=== PATIENT | male | born 1940 | race Caucasian/White ===

== ENCOUNTER 2016-12-22 07:00 | Day surgery (SDC) | payer MEDICARE, OTHER ==
[~2016-12-22] VITALS: Ht 185.4 cm; Wt 75.3 kg
[~2016-12-22 07:00] MED LIST: ADULT LOW DOSE81 MG PO; AMLODIPINE BESYL5 MG PO; COREG25 MG PO; HUMALOG100 UNITS/ SQ; HYDROCODON-ACE1 EA10 PO; LANTUS100 UNITS/ SUB-Q; LISINOPRIL20 MG PO; PERCOCET 7.5-31 EACH PO; SPIRONOLACTONE25 MG PO; TRAZODONE HCL50 MG PO
--- NOTE | 2016-12-22 07:29 | NUR ---
BLOOD SUGAR CHECK DONE WITH IV START. NOTED TO BE 64. PT STATES IT WAS 70 AT HOME THIS AM AND DRANK APPROX 4 OZ OF ORANGE JUICE BEFORE COMING IN. SPOKE WITH DIRECTOR OF AGRICULTURE AND ORDERS RECIEVED.
--- NOTE | 2016-12-22 07:35 | NUR ---
1/2 AMP D50 GIVEN IV.
--- NOTE | 2016-12-22 07:44 | NUR ---
PT UP TO THE BATHROOM WITH WILLIAN ASST. TOLERATED WELL.
--- NOTE | 2016-12-22 08:30 | NUR ---
ACCU CHECK DONE AT 1 HOUR AFTER 1\2 AMP D50. BLOOD SUGAR NOTED TO BE 89. WILL NOTIFY EMERALD INGRAM. PT RESTING IN BED WITH NO REQUESTS
--- NOTE | 2016-12-22 10:31 | NUR ---
EMERALD INGRAM AND DR CHEN IN TO TALK WITH PT AND .
--- NOTE | 2016-12-22 11:05 | NUR ---
ACCU CHECK DONE. NOTED TO BE 77. PT RESTING IN BED. EMERALD NOTIFIED AND ORDER RECIEVED TO GIVE 1/2 AMP D 50.
--- NOTE | 2016-12-22 13:24 | NUR ---
[facility]22[facility]16 [facility] [place]
[2016-12-22] MEDS ORDERED: OXYCODON-ACETA1 EAC2 PO (13:40)
[2016-12-22] MEDS ORDERED: IBUPROFEN600 MG PO (13:40)
--- NOTE | 2016-12-22 13:56 | NUR ---
PT ALERT, ORIENTED AND SUPPORTED BY HIS FELA. HE HAS HAD THIS SURGERY BEFORE, YARA WEEKS WORKING HARD TO GET HIM READY FOR SURGERY. PT REQUESTED PRAYER, WILL FOLLOW NEEDED
--- NOTE | 2016-12-22 14:42 | NUR ---
PT ABLE TO MOVE LEGS IN THE BED, LIFT LEGS OFF THE BED AND STARTING TO WIGGLE TOES. PT STATES I CAN FEEL SOME "PAIN IN THE RIGHT GROIN" C/O BACK PAIN MORE THAN GROIN PAIN. REPOSITIONED IN BED AND PO PAIN MEDICATION GIVEN. LUNCH AT BEDSIDE. KITCHENHAND IN TO TALK WITH PT.
--- NOTE | 2016-12-22 15:09 | NUR ---
PT RESTING IN BED WITH EYES CLOSED. RESP EVEN AND UNLABORED. AWAKENS TO NAME EASILY. STATES "MY PAIN IS BETTER" SCHOFIELD CATH IN PLACE WITH YELLOW URINE. PT ABLE TO WIGGLE TOES BUT REPORTS THEY STILL FEEL FUNNY.
--- NOTE | 2016-12-22 16:28 | NUR ---
PT UP AT SIDE OF THE BED WITH 2 PERSON ASST. TOLERATED WELL AND ABLE TO AMBULATE AT SIDE OF THE BED. SCHOFIELD CATH REMOVED. TIP INTACT AND 6ML REMOVED FROM BALLOON. 450 ML CLEAR YELLOW URINE EMPTIED FROM SCHOFIELD.
--- NOTE | 2016-12-22 17:19 | NUR ---
PT UP TO THE BATHROOM. GAIT STEADY. UNABLE TO VOID. BACK TO ROOM.
--- NOTE | 2016-12-22 17:55 | NUR ---
PT UNABLE TO VOID SO BACK TO ROOM. BLADDER SCANNED AND [address] CHEN NOTIFIED. PT TO GO TO MED SURG TILL ABLE TO VOID. PT REPORTS JAH AREA STILL NUMB. DR CHEN NOTIFIED OF LARGE AMT OF SWELLING IN RIGHT GROIN. NO BRUISING NOTED BUT FIRM TO THE TOUCH. DR CHEN WILL CHECK ON PT ON MED SURG FLOOR.
--- NOTE | 2016-12-22 18:16 | NUR ---
181 PT TRANSFERED TO [facility] VIA . REPORT GIVEN TO ARACELI LIVINGSTON.
--- NOTE | 2016-12-22 18:25 | NUR ---
RECIEVED BEDSIDE REPORT FROM YARA WEEKS. PT ARRIVED BY WHEELCHAIR AND TRANSFERED TO BED. PT HAS SURGICAL SITE COVERED WITH MEPLEX AND OPSITE. DRESSING IN C/D/I. WHEN LYING FLAT, PT HAS A LARGE SWELLING JUST ABOVE THE PUBIC BONE, TO JUST ABOVE THE DRESSING. AREA IS FIRM TO TOUCH. NO DISCOLORATION NOTED. MD AWARE PER DAY SURGERY RN. MD WILL ROUND TONIGHT. WHEN SITTING, SWELLING IS LESS NOTICEABLE. PT HAS ATTEMPTED TO VOID x2. CONSUMED 3 TUMBLERS OF WATER. BLADDER SCAN IN DAY SURGERY SHOWED 234ML. PT STATES HIS BOTTOM AND GROIN ARE STILL NUMB. HAS NO URGE TO VOID. SENSATION AND CMS INTACT TO FEET. SPOUSE AT BEDSIDE.
--- NOTE | 2016-12-22 19:15 | NUR ---
PT UP IN BATHROOM ATTEMPTING TO VOID, PT HAVING NAUSEA VOMITING IN SINK OF BATHROOM, PT VOIDED 200ML URINE OUT. PT ADMISNTERED ZOFRAN, PT NOW SITTING ON BATHROOM TOILET TO ATTEMPT TO VOID MORE. PT NO LONGER VOMITING. AT NURSES STATION. O.R. CREW IS IN ROUTE TO TAKE PT BACK TO SURGERY TO EXPLORE INCISION, DUE TO SWELLING AT SURGERY SITE. REPORT TO CONY LIVINGSTON SUPERVISOR FEED MILL
--- NOTE | 2016-12-22 20:44 | NUR ---
12/22/162043 Riana Saldaña 2037 - PT ARRIVED TO PACU. MAINTAINING OWN AIRWAY. O2 STATS ABOVE 97%. PT REPORTING 3/10 PAIN THAT IS TOLERABLE FOR HIM. PT RECEIVED ONLY VERSED AND FENTANYL FOR SEDATION WITH ANESTHESIA PRESENT. PT DENIES NAUSEA
--- NOTE | 2016-12-22 21:35 | NUR ---
PT ARRIVED TO THE FLOOR VIA STRETCHER. IN ROOM. RECIEVED REPORT FROM COOLER ROOM WORKER, PT HAD BEEN RATING PAIN AT 3/10 IN PACU AND HAS REFUSED PAIN MEDICATION FOR IT. PT REPORTS PAIN IS INCREASING, WILL GET PAIN MEDS FOR PT. PT ALERT AND ORIENTED, PLEASENT DEMEANOR. ORIENTED TO ROOM AND CALL LIGHT. VITALS TAKEN. NO FURTHER NEEDS AT THIS TIME.
--- NOTE | 2016-12-22 22:48 | NUR ---
PT UP X2, STOOD AT BEDSIDE USING URINAL. PT VOIDING WELL. PT PAIN AT 6/10 AFTER THE LAST DOSE OF DILAUDID, GAVE ANOTHER DOSE OF DILAUDID PER PT REQUEST. PT TAKING IN SIPS OF WATER AT THE MOMENT, REFUSES PO INTAKE AT THIS TIME. PT ALSO DECIDED TO REFUSE INSULIN TONIGHT BECAUSE HE IS "NOT GOING TO EAT UNTIL TOMORROW." WILL MONITOR BS CLOSELY TONIGHT. MELANI DRAINING SANGENOUS FLUID, 30MLS OUT AT THIS TIME, MELANI TUBING STRIPPED. BROUGHT IN PT'S CPAP FROM HOME, RT SET IT UP FOR PT. PT DENIES NAUSEA. DRESSING TO RIGHT ABD IS CLEAN DRY AND INTACT, NO SHADOWING. PT ALERT AND ORIENTED X4, PLEASENT DEMEANOR. UNDERSTANDS TO USE CALL LIGHT WHEN NEEDING TO GET OUT OF BED, OR NEEDS ANY ASSISTENCE. FRESH ICE WATER AT BEDSIDE. CALL LIGHT IN REACH.
--- NOTE | 2016-12-22 23:55 | NUR ---
PT APPEARS TO BE SLEEPING. CPAP IN PLACED, RR WNL AND UNLABORED. LIGHTS AND TV OFF IN ROOM.
--- NOTE | 2016-12-23 01:59 | NUR ---
PT WOKE AND USED CALL LIGHT TO GET ASSISTANCE TO THE RESTROOM. PT AMBULATING WELL. STEADY ON FEET. VOIDING WELL. STRIPPED TUBING TO MELANI, 20MLS OF SEROUS FLUID OUT. PT COMPLAINED OF 7/10 PAIN IN ABD, GAVE DILAUDID FOR PAIN. ALSO RECHECKED BLOOD SUGAR, BS 261, PT REQUESTED TO HAVE HIS LAST NIGHTS DOSE OF NOVOLOG AT THIS TIME, PT STATES "I KNOW MY BODY PRETTY GOOD, MORENO BEEN DOING THIS FOR 50 SOME YEARS." GAVE 4 UNITS OF NOVOLOG, WILL CONTINUE TO CHECK BS THROUGHOUT THE NIGHT. PT ALERT AND ORIENTED, USES CALL LIGHT APPROPRIATLY. CPAP NOW IN PLACE, PT APPEARS TO BE SLEEPING CURRENTLY.
--- NOTE | 2016-12-23 03:35 | NUR ---
PT APPEARS TO BE SLEEPING, CPAP IN PLACE. RR WNL AND UNLABORED.
--- NOTE | 2016-12-23 04:10 | NUR ---
PT UP TO BATHROOM, AMBULATING VERY WELL, STANDBY ASSIST ONLY, VERY STEADY ON HIS FEET. PT BACK IN BED. RATES PAIN AT 6/10, STATES "ITS GETTING BETTER," AND "IM STARTING TO FEEL ALOT BETTER." GAVE PT DILAUDID FOR PAIN. BS 207 AT THIS TIME, PT OKAY WITH STARTING NORMAL DOSAGE OF INSULIN IN THE MORNING. NO FURTHER NEEDS AT THIS TIME. CALL LIGHT IN REACH.
--- NOTE | 2016-12-23 06:10 | NUR ---
PT BACK FROM SURGERY BEGINNING OF SHIFT. PAIN WELL CONTROLLED WITH DILAUDID IV. PT HAS REFUSED PO INTAKE, OTHER THAN SIPS OF WATER WITH PO MEDICATIONS. BS CHECKS AND SLIDING SCALE INSULIN. DRESSING TO RLQ IS INTACT. MELANI DRAIN STRIPPED SEVERAL TIMES OVERNIGHT, DRAINING MODERATE AMOUNTS OF SANGENOUS DRAINAGE. NO COMPLAINTS OF NAUSEA. PT ALERT AND ORIENTED X4. PLEASENT DEMEANOR. USES CALL LIGHT APPROPRIATLY.
--- NOTE | 2016-12-23 07:25 | NUR ---
REPORT RECEIVED FROM RESERVOIR CARETAKER RN USING 5 P'S. PT UP TO BR. STEADY ON FEET. RATES PAIN 6/10. GIVEN 0.5 MG DILAUDID PER PT REQUEST. AT BEDSIDE. CALL LIGHT IN REACH. PT DENIES ADDITIONAL NEEDS.
--- NOTE | 2016-12-23 08:30 | NUR ---
ANSWERED QUESTIONS REGARDING INSULIN AND HOME MEDICATIONS. DISCUSSED PAIN CONTROL. PT GIVEN PERCOCET PER HOME REGIMEN. DILAUDID INEFFECTIVE AT THIS TIME. PT AND DENY ADDITIONAL QUESIONS OR CONCERNS. PT ENCOUARGED TO USE IS, COUGH/DEEP BREATHE. CALL LIGHT IN REACH. AT BEDSIDE.
--- NOTE | 2016-12-23 12:21 | NUR ---
PT DC'D HOME AFTER DC INSTRUCTIONS BY PHARMACY AND RN. DEMONSTRATED APPROPRIATE DRAIN CARE.
--- NOTE | 2016-12-23 14:37 | NUR ---
PT ALERT AND ORIENTED-SEATED IN CHAIR. HIS SIFE BY HIS SIDE. HE WAS THANKFUL HE WAS ADMITTED, AND HAD THE SECOND PROCEDURE. THEY BOTH SEEMED PLEASED WITH THE OUTCOME, BUT ARE READY TO GO HOME. PT REQUESTED PRAYER, WILL FOLLOW NEEDED
== END 2016-12-23 12:20 | disposition home or self-care (01) ==
LOC: DS 07:00 → MS 18:06 → DS 12-23 12:20
PROVIDERS: Surgery
PROC: 0WCG0ZZ Extirpation of Matter from Peritoneal Cavity, Open Approach (ICD-10-PCS; 2016-12-22)
PROC: 0YU50JZ Supplement Right Inguinal Region with Synthetic Substitute, Open Approach (ICD-10-PCS; principal; 2016-12-22 08:45)
DX: K40.90 Unilateral inguinal hernia, without obstruction or gangrene, not specified as recurrent (principal); K91.871 Postprocedural hematoma of a digestive system organ or structure following other procedure; E10.9 Type 1 diabetes mellitus without complications; Z79.899 Other long term (current) drug therapy; Z79.891 Long term (current) use of opiate analgesic; Z82.49 Family history of ischemic heart disease and other diseases of the circulatory system
CPT/HCPCS: 00830; 36415; 85025; 85610; 85730; 88300; C1781; J0690; J1170; J1644; J2250; J2405; J2704; J3010; J7120

== ENCOUNTER 2018-09-22 09:58 | Emergency (ER) | payer MEDICARE, OTHER ==
[~2018-09-22] VITALS: Ht 182.9 cm; Wt 86.0 kg
--- OUTSIDE RECORDS SUMMARY | ~2018-09-22 | XMS | Encounter Summary ---
Demographics + + + | Address | [address] | | | [place] [address] | + + + | Home Phone | | + + + | Preferred Language | Unknown | + + + | Marital Status | | + + + | Congregational Affiliation | Unknown | + + + | Race | Unknown | + + + | Ethnic Group | Unknown | + + + Author + + + | Author | [facility] | + + + | Organization | [facility] | + + + | Address | Unknown | + + + | Phone | Unavailable | + + + Support + + + + + | Name | Relationship | Address | Phone | + + + + + | Katherine Daniel | ECON | [address] | | | | | [place] | | | | | [address] | | + + + + + Care Team Providers + +------+ + | Care Powdered Sugar Supervisor Name | Role | Phone | + +------+ + | Tracie Cm MD | PCP | | + +------+ + Reason for Visit + + + | Reason | Comments | + + + | Medication Refill | | + + + Encounter Details +--------+--------+ + + + | Date | Type | Department | Care Team | Description | +--------+--------+ + + + | 09/08/ | Refill | [facility] | [facility] | Medication Refill | | 2019 | | Cardiology [facility] | | | | | [address] | | | | | | [place] | | | | | | [address] | | | | | | [phone] | | | +--------+--------+ + + + Social History + +-------+ +--------+------+ | Tobacco Use | Types | Packs/Day | Years | Date | | | | | Used | | + +-------+ +--------+------+ | Never Smoker | | | | | + +-------+ +--------+------+ + +---+---+---+ | Smokeless Tobacco: | | | | | Never Used | | | | + +---+---+---+ + + +---------+ + | Alcohol Use | Drinks/We | oz/Week | Comments | | | ek | | | + + +---------+ + | Yes | | | rarely | + + +---------+ + + + + | Sex Assigned at | Date Recorded | | | | + + + | Not on file | | + + + as of this encounter Plan of Treatment +--------+---------+ + + + | Date | Type | Specialty | Care Team | Description | +--------+---------+ + + + | 09/28/ | Office | Cardiology | Yasmin Bates, | | | 2018 | Visit | | MD Aamir Rasmussen | | | | | | Dr [place], | | | | | | [place] [address] | | | | | | [phone] | | | | | | | | +--------+---------+ + + + as of this encounter Visit Diagnoses Not on filein this encounter"
--- OUTSIDE RECORDS SUMMARY | ~2018-09-22 | XMS | Encounter Summary ---
Demographics + + + | Address | [address] | | | [place] [address] | + + + | Home Phone | | + + + | Preferred Language | Unknown | + + + | Marital Status | | + + + | Mu-Ism Affiliation | Unknown | + + + | Race | Unknown | + + + | Ethnic Group | Unknown | + + + Author + + + | Author | [facility] | + + + | Organization | [facility] | + + + | Address | Unknown | + + + | Phone | Unavailable | + + + Support + + + + + | Name | Relationship | Address | Phone | + + + + + | Katherine Daniel | ECON | [address] | | | | | [place] | | | | | [address] | | + + + + + Care Team Providers + +------+ + | Care Automotive Artist Name | Role | Phone | + +------+ + | Tracie Cm MD | PCP | | + +------+ + Encounter Details +--------+ + + + + | Date | Type | Department | Care Team | Description | +--------+ + + + + | 06/29/ | Telephone | [facility] | [facility] | | | 2019 | | [facility] | | | | | [address] | | | | | | [facility] [address] | | | | | | [place], [place] [address] | | | | | | [phone] | | | +--------+ + + + [...] [place], | | | | | | [place] [address] | | | | | | [phone] | | | | | | | | +--------+---------+ + + + as of this encounter Visit Diagnoses Not on filein this encounter"
--- OUTSIDE RECORDS SUMMARY | ~2018-09-22 | XMS | Encounter Summary ---
Demographics + + + | Address | [address] | | | [place] [address] | + + + | Home Phone | | + + + | Preferred Language | Unknown | + + + | Marital Status | | + + + | Methodist Affiliation | Unknown | + + + | Race | Unknown | + + + | Ethnic Group | Unknown | + + + Author + + + | Author | [employer] | + + + | Organization | [facility] [employer] | + + + | Address | Unknown | + + + | Phone | Unavailable | + + + Support + + + + + | Name | Relationship | Address | Phone | + + + + + | Katherine Daniel | ECON | [address] | | | | | [place] | | | | | [address] | | + + + + + Care Team Providers + +------+ + | Care Wool Shearer Name | Role | Phone | + +------+ + | Tracie Cm MD | PCP | | + +------+ + Reason for Visit + + + | Reason | Comments | + + + | Establish Care | Referral from Tracie Cm | + + + Consult and Treat (Routine) +--------+--------+ + + + + | Status | Reason | Specialty | Diagnoses / | Referred By | Referred To | | | | | Procedures | Contact | Contact | +--------+--------+ + + + + | Closed | | Cardiology | Diagnoses | [place], | [place], | | | | | Presence of | Tracie Keating, | MD Yasmin | | | | | cardiac | [address] | [address] | | | | | pacemaker | [place] | Dr Small | | | | | Procedures | [place], | [place], [place] | | | | | Consult | [place] [address] | [address] Phone: | | | | | | Phone: | [phone] | | | | | | [phone] | Fax: | | | | | | Fax: | [phone] | | | | | | [phone] | | +--------+--------+ + + + + Encounter Details +--------+ + + + + | Date | Type | Department | Care Team | Description | +--------+ + + + + | 06/29/ | Initial | [facility] | Yasmin Orellana, | Cardiac pacemaker | | 2019 | consult | Cardiology Ama | [address] | (Primary Dx); | | | | [address] | Dr Scott, | Encounter to | | | | [address] | [place] [address] | establish care; | | | | [place] [address] | [phone] | Essential | | | | [phone] | | hypertension; | | | | | | Biventricular ICD | | | | | | (implantable | | | | | | cardioverter-defibri | | | | | | llator) in place; | | | | | | Chronic diastolic | | | | | | congestive heart | | | | | | failure (HCC); | | | | | | Ischemic | | | | | | cardiomyopathy | +--------+ + + + + Social [...] + + + as of this encounter Last Filed Vital Signs + + + + | Vital Sign | Reading | Time Taken | + + + + | Blood Pressure | 98/60 | 06/29/2018 9:05 AM PST | + + + + | Pulse | 60 | 06/29/2018 9:05 AM PST | + + + + | Temperature | - | - | + + + + | Respiratory Rate | - | - | + + + + | Oxygen Saturation | 100% | 06/29/2018 9:05 AM PST | + + + + | Inhaled Oxygen | - | - | | Concentration | | | + + + + | Weight | 82.5 kg (181 lb 12.8 | 06/29/2018 9:05 AM PST | | | oz) | | + + + + | Height | 182.9 cm (6') | 06/29/2018 9:05 AM PST | + + + + | Body Mass Index | 24.66 | 06/29/2018 9:05 AM PST | + + + + in this encounter Instructions Patient Instructions - Yasmin Orellana MD - 06/29/2018 9:00 AM PSTFurosemide 40 mg once daily. Stop amlodipine. Start Hydralazine 50 mg bid. ICD interrogation. in this encounter Progress Notes Yasmin Orellana MD - 06/29/2018 9:00 AM PSTFormatting of this note may be different fro m the original. Date of visit: 06/29/2018 Primary Care Physician: Tracie Cm CHIEF COMPLAINT: Chief Complaint Patient presents with Establish Care Referral from Tracie Cm HISTORY OF PRESENT ILLNESS: David is 78 y.o. here for evaluation of valvular pathology and cardiomyopathy. Complex past medical history and presentation. Patient is tired most of the day, his activity level is limited by significant back pain th at was exacerbated after a fall in January 2018. No shortness of breath, lower extremity edema is chronic, on low-dose furosemide 20 mg josé antonio y. Recently has been participating in physical rehabilitation for his back pain able to go 3 t imes a week, 45 minutes session. Sleeps 8-10 hours at night time however he takes at least 1 or 2 naps during the day it 1 h our each. Has history of severe mitral regurgitation, had 2 mitral clips deployed on August of 2016 du e to severe mitral regurgitation. Has been following up with Cardiology in [facility] for aortic valve stenosis. Had BIV ICD implantation for ischemic cardiomyopathy prior. Past medical history, SH, FH, and medications were reviewed in the chart. Medications: Outpatient Encounter Prescriptions as of 06/29/2018 Medication Sig Dispense Refill amLODIPine (NORVASC) 5 MG tablet Take 5 mg by mouth 2 (two) times daily. Blood Glucose Monitoring Suppl (BLOOD GLUCOSE MONITOR SYSTEM) w/Device device kit by Ot her route. carvedilol (COREG) 25 MG tablet Take 50 mg by mouth 2 (two) times daily with meals. furosemide (LASIX) 20 MG tablet Take 20 mg by mouth daily. gabapentin (NEURONTIN) 100 MG capsule Take 100 mg by mouth 3 (three) times daily. HYDROcodone-acetaminophen (NORCO) 10-325 MG per tablet Take 1 tablet by mouth every 6 ( six) hours as needed for Pain. ibuprofen (MOTRIN) 600 MG tablet Take 600 mg by mouth every 6 (six) hours as needed for Pain. insulin glargine (LANTUS) 100 UNIT/ML injection Inject 18 Units into the skin nightly. insulin lispro, human, (HUMALOG) 100 UNIT/ML injection Inject 7 Units into the skin 3 ( three) times daily before meals. lisinopril (ZESTRIL) 20 MG tablet Take 20 mg by mouth 2 (two) times daily. lubiprostone (AMITIZA) 24 MCG capsule Take 24 mcg by mouth 2 (two) times daily with thom ls. nitroGLYCERIN (NITROSTAT) 0.[address] 0.4 mg under the tongue every 5 (five) minutes as needed for Chest pain. potassium chloride (K-DUR) 10 MEQ tablet Take 20 mEq by mouth daily. spironolactone (ALDACTONE) 25 MG tablet Take 25 mg by mouth daily. traZODone (DESYREL) 50 MG tablet Take 50 mg by mouth nightly. venlafaxine (EFFEXOR) 75 MG tablet Take 75 mg by mouth daily. No facility-administered encounter medications on file as of 06/29/2018. Allergies Not on File REVIEW OF SYSTEMS: Constitutional: Positive for fatigue. HEENT: Negative for nosebleeds, ear discharge, nasal congestion or soar throat. Eyes: Negative for visual disturbance, redness, or secretion. Respiratory: Negative for cough, sputum production, hemoptysis, wheezing. Cardiovascular: as HPI. Gastrointestinal: Negative for nausea, vomiting, diarrhea, abdominal pain and blood in stoo l. Genitourinary: Negative for dysuria or hematuria. Musculoskeletal: significant back pain. Skin: Negative for rash. Neurological: Negative for dizziness. No numbness. No recent falls. No slurred speech. Hematological: No significant bruising. Psychiatric/Behavioral: No depression or anxiety. PHYSICAL EXAM Vital Signs: BP 98/60 (BP Location: Left upper arm, Patient Position: Sitting) | Pulse 60 | Ht 1.829 m (6') | Wt 82.5 kg (181 lb 12.8 oz) | SpO2 100% | BMI 24.66 kg/m GENERAL APPEARANCE: Alert, oriented, cooperative, no distress, appears stated age. HEENT: Extraocular movements were intact. No jaundice. Pupiles round and reactive. NECK: No JVD, lymphadenopathy. Carotid upstrokes normal. No carotid bruit heard. CARDIAC: Regular rhythm and rate. There is normal S1 and preserved S2. Systolic murmur in the left lower sternal border. CHEST: Normal bilateral symmetrical chest excursion.ackles or wheezing. No evidence of dull ness. ABDOMEN: Soft.No tenderness or guarding. No palpable organs. Active bowel sounds. EXTREMITIES: Pressure stocking however +2 lower extremity edema. NEURO: Alert and oriented times three with no focal deficit. Cranial nerves are grossly no rmal. SKIN: Warm and dry. No rash. Psych: Normal affect and mood. DATA No results found for: NA, K, CO2, BUN, CREATININE, CALCIUM, MG No results found for: WBC, HGB, HCT, MCV, PLT No results found for: CHOL, TRIG, HDL, LDL, GLUF, HGBA1C, TSH EC06/29/2018 Ordered and reviewed by myself showed atrial paced and ventricular paced rhythm with occasi onal PVCs. Right bundle block morphology consistent with biventricular [...] ICD implantation 2004, replaced 2009. Replaced 2016. Last Stress test: Last Cath: Last US carotid: 1988.3v CABG (BROWN-LAD, SVG-diag, SVG-RPDA) 2007. reop CABG (SVG-OM1 and 2, SVG-RPDA) ASSESSMENT: Patient is 78 y.o. with: 1. Chronic systolic decompensated heart failure, HFrEF OKH class III, stage C. 2. Hypertension. 3. Ischemic cardiomyopathy, with BiV ICD. 4. S/P 2 mitral clips due to severe mitral regurgitation, most recent echo shows moderate r egurgitation. 5. Moderate to severe aortic stenosis. 6. Severe pulmonary hypertension. 7. Type II diabetes mellitus. 8. History of atrial flutter previous ablation in 2004. 9. History of anemia. 10. Obstructive sleep apnea. 11. 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 Reviewed patient previous notes an echocardiogram, I reviewed the echocardiogram findings w ith the patient and his . Continue with carvedilol 25 mg bid, lisinopril 20 mg bid, spironolactone 25 mg once daily. Increase furosemide to 40 mg po q day. Stop amlodipine given patient ischemic cardiomyopathy and start hydralazine since it is med ically guided therapy for cardiomyopathy 50 mg bid, titrate up for blood pressure control. Anemia of chronic disease of unknown etiology, chemotherapy was advised however patient dec lined. We will schedule patient for ICD interrogation. We will continue monitoring weight, I reviewed salt and fluid restrictions. Discussed with the patient starting Sacubitril/Valsartan on future encounter. Further recommendations to follow. *This report has been prepared using a voice recognition system. The report was reviewed fo r accuracy, however, sound-alike word errors, addition and/or deletions may occur. If there is any question about this report please contact me. Yasmin Orellana MD, MPHin this encounter Plan of Treatment +--------+---------+ + + + | Date | Type | Specialty | Care Team | Description | +--------+---------+ + + + | 09/28/ | Office | Cardiology | Yasmin Orellana, | | | 2018 | Visit | | MD Aamir Rasmussen | | | | | | Dr [address], | | | | | | [place] [address] | | | | | | [phone] | | | | | | | | +--------+---------+ + + + + +--------+ + + | Name | Priori | Associated Diagnoses | Order Schedule | | | ty | | | + +--------+ + + | ICD Pacemaker Interrogation | Routin | Essential | Expected: | | | e | hypertension | 06/29/2018, Expires: | | | | Biventricular Icd | 06/29/2019 | | | | (Implantable | | | | | Cardioverter-Defibri | | | | | llator) In Place | | | | | Chronic diastolic | | | | | congestive heart | | | | | failure (HCC) | | | | | Ischemic | | | | | cardiomyopathy | | + +--------+ + + as of this encounter Procedures + +--------+ + + + | Procedure Name | Priori | Date/Time | Associated Diagnosis | Comments | | | ty | | | | + +--------+ + + + | EKG STANDARD 12 LEAD | Routin | 06/29/2018 | Cardiac pacemaker | Results for this | | | e | 9:21 AM | Encounter to | procedure are in the | | | | PST | establish care | results section. | | | | | Essential | | | | | | hypertension | | + +--------+ + + + in this encounter Results EKG STANDARD 12 LEAD (06/29/2018 9:21 AM) + + + + + | Component | Value | Ref Range | Performed At | + + + + + | Ventricular Rate | 67 | BPM | [facility] | + + + + + | Atrial Rate | 67 | BPM | [facility] | + + + + + | P-R Interval | 156 | ms | [facility] | + + + + + | QRS Duration | 140 | ms | [facility] | + + + + + | Q-T Interval | 466 | ms | [facility] | + + + + + | QTC Calculation | 492 | ms | [facility] | | (Bezet) | | | | + + + + + | Calculated P Nowata | 60 | degrees | [facility] | + + + + + | Calculated R Nowata | -95 | degrees | [facility] | + + + + + | Calculated T Nowata | 34 | degrees | [facility] | + + + + + | Diagnosis | AV dual-paced rhythm | | [facility] | | | with occasional | | | | | ventricular-paced | | | | | complexes and with | | | | | occasional Premature | | | | | ventricular | | | | | complexesAbnormal ECGNo | | | | | previous ECGs | | | | | availablePlease refer to | | | | | Providers office visit | | | | | note for Providers | | | | | Interpretation.Confirmed | | | | | by [facility] Read Only, | | | | | [facility] ([id number]), | | | | | editorial manager Farzad Nguyen | | | | | ([id number]) on 06/29/2018 | | | | | 9:30:41 AM | | | + + + + + + + + + + | Performing | Address | City/State/Zipcode | Phone Number | | Organization | | | | + + + + + | [facility] | [address] | [place] [address] | | + + + + + in this encounter Visit Diagnoses + + | Diagnosis | + + | Cardiac pacemaker - Primary | + + | Cardiac pacemaker in situ | + + | Encounter to establish care | + + | Reserved for inherently not codable concepts WITHOUT codable children | + + | Essential hypertension | + + | Unspecified essential hypertension | + + | Biventricular ICD (implantable cardioverter-defibrillator) in place | + + | Chronic diastolic congestive heart failure (HCC) | + + | Chronic diastolic heart failure | + + | Ischemic cardiomyopathy | + + | Other specified forms of chronic ischemic heart disease | + +"
--- OUTSIDE RECORDS SUMMARY | ~2018-09-22 | XMS | Clinical Summary ---
Demographics + + + | Address | [address] | | | [place] [address] | + + + | Home Phone | | + + + | Preferred Language | Unknown | + + + | Marital Status | | + + + | Nondenominational Affiliation | [id number] | + + + | Race | Unknown | + + + | Ethnic Group | Unknown | + + + Author + + + | Author | [facility] | | | and [place] | + + + | Organization | [facility] | | | and [place] | + + + | Address | Unknown | + + + | Phone | Unavailable | + + + Support + + + + + | Name | Relationship | Address | Phone | + + + + + | Daniel Gomez | ECON | [place] | | | | | [address] | | + + + + + | Katherine Gomez L | ECON | [address] | | | | | [place] | | | | | [address] | | + + + + + | Katherine Gomez | ECON | [address] | | | | | [place] | | | | | [address] | | + + + + + Care Team Providers + +------+ + | Care Bicycle Designer Name | Role | Phone | + +------+ + | Tracie Cm MD | PP | | + +------+ + Allergies No Known Allergies Current Medications + + +-------+---------+------+------+-------+ | Prescription | Sig. | Disp. | Refills | Star | End | Statu | | | | | | t | Date | s | | | | | | Date | | | + + +-------+---------+------+------+-------+ | amLODIPine | Take 5 mg by mouth. | | | 05/0 | | Activ | | (NORVASC) 5 mg | | | | 8/20 | | e | | tablet | | | | 18 | | | + + +-------+---------+------+------+-------+ | carvedilol (COREG) | Take 50 mg by mouth. | | | 05/0 | | Activ | | 25 mg tablet | | | | 2/20 | | e | | | | | | 18 | | | + + +-------+---------+------+------+-------+ | lisinopril | Take 20 mg by mouth. | | | 05/0 | | Activ | | (PRINIVIL, ZESTRIL) | | | | 8/20 | | e | | 20 mg tablet | | | | 18 | | | + + +-------+---------+------+------+-------+ | amLODIPine | amlodipine besylate | | | | | Activ | | (NORVASC) 5 mg | 5 mg tabs | | | | | e | | tablet (ED prepack) | | | | | | | + + +-------+---------+------+------+-------+ | spironolactone | spironolactone 25 mg | | | | | Activ | | (ALDACTONE) 25 mg | tabs | | | | | e | | tablet (ED prepack) | | | | | | | + + +-------+---------+------+------+-------+ | traZODone | trazodone hcl 50 mg | | | | | Activ | | (DESYREL) 50 mg | tabs | | | | | e | | tablet | | | | | | | + + +-------+---------+------+------+-------+ | insulin lispro | humalog 100 unit/ml | | | | | Activ | | (HUMALOG) 100 | soln | | | | | e | | units/mL injection | | | | | | | | (vial) | | | | | | | + + +-------+---------+------+------+-------+ | insulin glargine | Inject 18 Units | | | | | Activ | | (LANTUS) 100 | under the skin. | | | | | e | | units/mL injection | | | | | | | | (vial) | | | | | | | + + +-------+---------+------+------+-------+ | lubiprostone | Take 24 mcg by mouth | | | | | Activ | | (AMITIZA) 24 mcg | 2 times daily (with | | | | | e | | capsule | breakfast & | | | | | | | | dinner). | | | | | | + + +-------+---------+------+------+-------+ | venlafaxine | Take 75 mg by mouth | | | | | Activ | | (EFFEXOR) 75 MG | 3 times daily. | | | | | e | | tablet | | | | | | | + + +-------+---------+------+------+-------+ | ibuprofen | Take 600 mg by mouth | | | | | Activ | | (ADVIL,MOTRIN) 600 | every 6 hours as | | | | | e | | MG tablet | needed for Pain. | | | | | | + + +-------+---------+------+------+-------+ | | Take 1 tablet by | | | | | Activ | | HYDROcodone-acetamin | mouth every 6 hours | | | | | e | | ophen (NORCO) | as needed for Pain. | | | | | | | 7.5-325 mg per | | | | | | | | tablet | | | | | | | + + +-------+---------+------+------+-------+ | gabapentin | Take 100 mg by mouth | | | | | Activ | | (NEURONTIN) 100 mg | 3 times daily. | | | | | e | | capsule | | | | | | | + + +-------+---------+------+------+-------+ | ASPIRIN PO | Take by mouth. | | | | | Activ | | | | | | | | e | + + +-------+---------+------+------+-------+ | nitroglycerin | Place 0.4 mg under | | | | | Activ | | (NITROSTAT) 0.4 mg | the tongue every 5 | | | | | e | | SL tablet | minutes as needed | | | | | | | | for Chest pain. | | | | | | + + +-------+---------+------+------+-------+ Active Problems Not on file Family History + + +------+ + | Medical History | Relation | Name | Comments | + + +------+ + | Prostate cancer | Father | | | + + +------+ + + +------+--------+ + | Relation | Name | Status | Comments | + +------+--------+ + | Father | | | | + +------+--------+ + Social History + +-------+ +--------+------+ | [...] +---------+ + | Yes | | | rarley | + + +---------+ + + + + | Sex Assigned at | Date Recorded | | | | + + + | Not on file | | + + + Last Filed Vital Signs + + + + | Vital Sign | Reading | Time Taken | + + + + | Blood Pressure | 127/60 | 04/18/20181449 PDT | + + + + | Pulse | 72 | 04/18/20181449 PDT | + + + + | Temperature | 36.9 C (98.5 F) | 04/18/20181449 PDT | + + + + | Respiratory Rate | 16 | 04/18/20181449 PDT | + + + + | Oxygen Saturation | 97% | 04/18/20181449 PDT | + + + + | Inhaled Oxygen | - | - | | Concentration | | | + + + + | Weight | - | - | + + + + | Height | 181 cm (5' 11.26") | 04/18/20181449 PDT | + + + + | Body Mass Index | - | - | + + + + Plan of Treatment + + + + + | Health Maintenance | Due Date | Last Done | Comments | + + + + + | Vaccine: | | | | | Dtap/Tdap/Td (1 - | 0 | | | | Tdap) | | | | + + + + + | Vaccine: Zoster (1 | | | | | of 2) | 1 | | | + + + + + | Vaccine: | | | | | Pneumococcal 65+ | 6 | | | | Low/Medium Risk (1 | | | | | of 2 - PCV13) | | | | + + + + + | Vaccine: Influenza | | | | | (#1) | 8 | | | + + + + + Results Not on filefrom Last 3 Months Insurance + +--------+ +--------+ +---------+ | Payer | Benefi | Subscriber | Type | Phone | Address | | | t Plan | ID | | | | | | / | | | | | | | Group | | | | | + +--------+ +--------+ +---------+ | MEDICARE | MEDICA | [id number] | Medica | [phone] | | | RE | | re | [phone] | | | | PART A | | | | | | | AND B | | | | | + +--------+ +--------+ +---------+ | [employer] | MUTUAL | [id number] | Indemn | [phone] | | | OF | | ity | 1000 | | | | [employer] | | | | | + +--------+ +--------+ +---------+ + +--------+ +--------+ + + | Guarantor Name | Accoun | Relation to | Date | Phone | Billing Address | | | t Type | Patient | of | | | | | | | | | | + +--------+ +--------+ + + | DAVID GOMEZ | Person | Self [birth year] Home: | [address] [place] [address] | | | al/Fam | | [phone] | [phone] | [place] [address] | | | [address] | | | [phone] | | + +--------+ +--------+ + +
--- OUTSIDE RECORDS SUMMARY | ~2018-09-22 | XMS | Clinical Summary ---
Demographics + + + | Address | [address] | | | [place] [address] | + + + | Home Phone | | + + + | Preferred Language | Unknown | + + + | Marital Status | | + + + | Baptism Affiliation | Unknown | + + + | Race | Unknown | + + + | Ethnic Group | Unknown | + + + Author + + + | Author | [facility] | + + + | Organization | [facility] | + + + | Address | Unknown | + + + | Phone | Unavailable | + + + Support + + + + + | Name | Relationship | Address | Phone | + + + + + | Katherine Gomez | ECON | [address] | | | | | [place] | | | | | [address] | | + + + + + Care Team Providers + +------+ + | Care Dust Box Tender Name | Role | Phone | + +------+ + | Tracie Cm MD | PP | | + +------+ + Allergies Not on File Current Medications + + +--------+---------+------+------+-------+ | Prescription | Sig. | Disp. | Refills | Star | End | Statu | | | | | | t | Date | s | | | | | | Date | | | + + +--------+---------+------+------+-------+ | potassium chloride | Take 20 mEq by mouth | | | | | Activ | | (K-DUR) 10 MEQ | daily. | | | | | e | | tablet | | | | | | | + + +--------+---------+------+------+-------+ | carvedilol (COREG) | Take 50 mg by mouth | | | | | Activ | | 25 MG tablet | 2 (two) times daily | | | | | e | | | with meals. | | | | | | + + +--------+---------+------+------+-------+ | lisinopril | Take 20 mg by mouth | | | | | Activ | | (ZESTRIL) 20 MG | 2 (two) times daily. | | | | | e | | tablet | | | | | | | + + +--------+---------+------+------+-------+ | spironolactone | Take 25 mg by mouth | | | | | Activ | | (ALDACTONE) 25 MG | daily. | | | | | e | | tablet | | | | | | | + + +--------+---------+------+------+-------+ | traZODone | Take 50 mg by mouth | | | | | Activ | | (DESYREL) 50 MG | nightly. | | | | | e | | tablet | | | | | | | + + +--------+---------+------+------+-------+ | lubiprostone | Take 24 mcg by mouth | | | | | Activ | | (AMITIZA) 24 MCG | 2 (two) times daily | | | | | e | | capsule | with meals. | | | | | | + + +--------+---------+------+------+-------+ | venlafaxine | Take 75 mg by mouth | | | | | Activ | | (EFFEXOR) 75 MG | daily. | | | | | e | | tablet | | | | | | | + + +--------+---------+------+------+-------+ | ibuprofen (MOTRIN) | Take 600 mg by mouth | | | | | Activ | | 600 MG tablet | every 6 (six) hours | | | | | e | | | as needed for Pain. | | | | | | + + +--------+---------+------+------+-------+ | gabapentin | Take 100 mg by mouth | | | | | Activ | | (NEURONTIN) 100 MG | 3 (three) times | | | | | e | | capsule | daily. | | | | | | + + +--------+---------+------+------+-------+ | | Take 1 tablet by | | | | | Activ | | HYDROcodone-acetamin | mouth every 6 (six) | | | | | e | | ophen (NORCO) 10-325 | hours as needed for | | | | | | | MG per tablet | Pain. | | | | | | + + +--------+---------+------+------+-------+ | nitroGLYCERIN | Place 0.4 mg under | | | | | Activ | | (NITROSTAT) 0.4 MG | the tongue every 5 | | | | | e | | SL tablet | (five) minutes as | | | | | | | | needed for Chest | | | | | | | | pain. | | | | | | + + +--------+---------+------+------+-------+ | insulin lispro, | Inject 7 Units into | | | | | Activ | | human, (HUMALOG) 100 | the skin 3 (three) | | | | | e | | UNIT/ML injection | times daily before | | | | | | | | meals. | | | | | | + + +--------+---------+------+------+-------+ | insulin glargine | Inject 18 Units into | | | | | Activ | | (LANTUS) 100 UNIT/ML | the skin nightly. | | | | | e | | injection | | | | | | | + + +--------+---------+------+------+-------+ | Blood Glucose | by Other route. | | | | | Activ | | Monitoring Suppl | | | | | | e | | (BLOOD GLUCOSE | | | | | | | | MONITOR SYSTEM) | | | | | | | | w/Device device kit | | | | | | | + + +--------+---------+------+------+-------+ | furosemide (LASIX) | Take 2 tablets by | 100 | 1 | 01/0 | | Activ | | 20 MG tablet | mouth daily. | tablet | | 2/20 | | e | | | | | | 19 | | | + + +--------+---------+------+------+-------+ | hydrALAZINE | Take 1 tablet by | 60 | 2 | 03/ | 08/26 | Activ | | (APRESOLINE) 50 MG | mouth 2 (two) times | tablet | | 4/20 | 3/20 | e | | tablet | daily. | | | 19 | 20 | | + + +--------+---------+------+------+-------+ | hydrALAZINE | Take 1 tablet by | 60 | 2 | 01/0 | 03/ | Disco | | (APRESOLINE) 50 MG | mouth 2 (two) times | tablet | | 2/20 | 4/20 | ntinu | | tablet | daily. | | | 19 | 19 | ed | + + +--------+---------+------+------+-------+ Active Problems + + + | Problem | Noted Date | + + + | Atrial flutter (HCC) | 11/17/2016 | + + + + + | Overview: Overview: 10/21/2007 patient underwent typical | | atrial flutter ablation by Sander De Leon M.D. | + + + + + | S/P mitral valve repair | 09/15/2016 | + + + | Chronic diastolic congestive heart failure (HCC) | 06/26/2016 | + + + | Non-rheumatic mitral regurgitation | 06/26/2016 | + + + | Biventricular ICD (implantable cardioverter-defibrillator) in | 10/13/2013 | | place | | + + + + + | Overview: Overview: | | Medtronic Praveen II DIAMOND CLEANER-D ICD | | | | Last Assessment & Plan: | | Normal function. | + + + + + | Coronary atherosclerosis | 08/10/2011 | + + + | Diabetes mellitus, type II (HCC) | 08/10/2011 | + + + + + | Overview: Overview: | | ENRIQUEU [id number] Decision | + + + + + | Dyslipidemia | 08/10/2011 | + + + | Hypertension | 08/10/2011 | + + + | Ischemic cardiomyopathy | 08/10/2011 | + + + + + | Overview: Last Assessment & Plan: Severe MR by last echo. Was | | seeing Dr. Serra, wishes to establish care with [place] | | electro mechanical engineer. Will refer to cardiology and try to arrange his | | appointment for when he is in [place] for his generator change. | + + Encounters +--------+ + + + + | Date | Type | Specialty | Care Team | Description | +--------+ + + + + | 09/08/ | Refill | | Rayne Ibarra | Medication Refill | | 2018 | | | [facility] | | +--------+ + + + + | 06/29/ | Initial | | Yasmin Bates, | Cardiac pacemaker | | 2019 | consult | | MD | (Primary Dx); | | | | | | Encounter to | | | | | | establish care; | | | | | | Essential | [...] cardiomyopathy | +--------+ + + + + | 06/29/ | Telephone | | Rayne Ibarra | | | 2019 | | | [facility] | | +--------+ + + + + | 06/29/ | Documentati | | Rayne Ibarra | Other ([facility] | | 2019 | on Only | | [facility] | records) | +--------+ + + + + from Last 3 Months Family History + + +------+ + | Medical History | Relation | Name | Comments | + + +------+ + | Heart [...] AM PST | + + + + Plan of Treatment +--------+---------+ + + + | Date | Type | Specialty | Care Team | Description | +--------+---------+ + + + | 09/28/ | Office | | Yasmin Bates, | | | 2018 | Visit | | [address] | | | | | | Dr [place], | | | | | | [place] [address] | | | | | | [phone] | | | | | | | | +--------+---------+ + + + + + + + + | Health Maintenance | Due Date | Last Done | Comments | + + + + + | Diabetic Eye Exam | | | | | | 1 | | | + + + + + | Diabetic Foot Exam | | | | | | 1 | | | + + + + + | Hemoglobin A1c | | | | | | 1 | | | + + + + + | Microalbumin | | | | | Screening | 1 | | | + + [...] + + from Last 3 Months Results EKG STANDARD 12 LEAD (06/29/2018 9:21 [...] | ms | [facility] E[facility] | | (Haily) | | | | + + + + + | Calculated P [place] | 60 | degrees | [facility] | + + + + + | Calculated R [place] | -95 | degrees | [facility] | + + + + + | Calculated T [place] | 34 | degrees | [facility] | + + + + + | Diagnosis | AV dual-paced rhythm | | [facility] | | | with occasional | [...] | | | | | by [facility] [place] Read Only, | | | | | [facility] Valery (398), | | | | | editorial director Farzad Nguyen | | | | | (253) on 06/29/2018 | | | | | 9:30:41 AM | | | + + + + + + + + + + | Performing | Address | City/State/Zipcode | Phone Number | | Organization | | | | + + + + + | [facility] | [address] | [place] [address] | | + + + + + from Last 3 Months Insurance + +--------+ +------+-------+ + | Payer | Benefi | Subscriber | Type | Phone | Address | | | t Plan | ID | | | | | | / | | | | | | | Group | | | | | + +--------+ +------+-------+ + | MEDICARE | MEDICA | [id number] | | | [address] | | | RE | | | | [place] [address] | | | IP-OP | | | | | + +--------+ +------+-------+ + | [employer] [place] | MUTUAL | [id number] | | | | | | [place] | | | | | | | [place] | | | | | + +--------+ +------+-------+ + + +--------+ +--------+ + + | Guarantor Name | Accoun | Relation to | Date | Phone | Billing Address | | | t Type | Patient | of | | | | | | | | | | + +--------+ +--------+ + + | STEVE GOMEZ | Person | Self | [birth year] | Work: | [address] | | | al/Lance | | 1940 | [phone] | [place] [address] | | | sid | | | [address] Home: | | | | | | | | | | | | | | [phone] | | | | | | | [phone] | | + +--------+ +--------+ + +"
--- OUTSIDE RECORDS SUMMARY | ~2018-09-22 | XMS | Encounter Summary ---
Demographics + + + | Address | [address] | | | [place] [address] | + + + | Home Phone | | + + + | Preferred Language | Unknown | + + + | Marital Status | | + + + | Caodaism Affiliation | Unknown | + + + | Race | Unknown | + + + | Ethnic Group | Unknown | + + + Author + + + | Author | [facility] | + + + | Organization | [facility] | + + + | Address | Unknown | + + + | Phone | Unavailable | + + + Support + + + + + | Name | Relationship | Address | Phone | + + + + + | Katherine Daniel | ECON | [address] | | | | | [place] | | | | | [address] | | + + + + + Care Team Providers + +------+ + | Care Publications Production Supervisor Name | Role | Phone | [...] [place] | | | | | | [address] | | | | | | [phone] | | | +--------+--------+ + + + [...] | | | | | | [place] [address] | | | | | | [phone] | | | | | | | | +--------+---------+ + + + as of this encounter Visit Diagnoses Not on filein this encounter"
--- OUTSIDE RECORDS SUMMARY | ~2018-09-22 | XMS | Encounter Summary ---
Demographics + + + | Address | [address] | | | [place] [address] | + + + | Home Phone | | + + + | Preferred Language | Unknown | + + + | Marital Status | | + + + | Denominational Affiliation | Unknown | + + + | Race | Unknown | + + + | Ethnic Group | Unknown | + + + Author + + + | Author | [facility] | + + + | Organization | [facility] | + + + | Address | Unknown | + + + | Phone | Unavailable | + + + Support + + + + + | Name | Relationship | Address | Phone | + + + + + | Katherine Daniel | ECON | [address] | | | | | [place] | | | | | [address] | | + + + + + Care Team Providers + +------+ + | Care Carpet Binder Name | Role | Phone | + +------+ + | Tracie Cm MD | PCP | | + +------+ + Reason for Visit +--------+ + | Reason | Comments | +--------+ + | Other | [facility] records | +--------+ + Encounter Details +--------+ + + + + | Date | Type | Department | Care Team | Description | +--------+ + + + + | 06/29/ | Documentati | [facility] | Rayne Ibarra | Other ([facility] | | 2019 | on Only | Cardiology Ama | [facility] | records) | | | | [address] | | | | | | [address] | | | | | | [place] [address] | | | | | | [phone] | | | +--------+ + + + [...] 2019 | Visit | | MD Aamir Rasmussen | | | | | | Dr [place], | | | | | | [place] [address] | | | | | | [phone] | | | | | | | | +--------+---------+ + + + as of this encounter Visit Diagnoses Not on filein this encounter"
--- OUTSIDE RECORDS SUMMARY | ~2018-09-22 | XMS | Encounter Summary ---
Demographics + + + | Address | [address] | | | [place] [address] | + + + | Home Phone | | + + + | Preferred Language | Unknown | + + + | Marital Status | | + + + | Adventist Affiliation | Unknown | + + + | Race | Unknown | + + + | Ethnic Group | Unknown | + + + Author + + + | Author | [facility] | + + + | Organization | [facility] | + + + | Address | Unknown | + + + | Phone | Unavailable | + + + Support + + + + + | Name | Relationship | Address | Phone | + + + + + | Katherine Daniel | ECON | [address] | | | | | [place] | | | | | [address] | | + + + + + Care Team Providers + +------+ + | Care Coke Still Cleaner Name | Role | Phone | + [...] | | | Procedures | [place], | [place], [place] | | | | | Consult | [place] [address] | [address] Phone: | | | | | | Phone: | [phone] | | | | | | [phone] | Fax: | | | | | | Fax: | [phone] | | | | | | [phone] | | +--------+--------+ + + + + Encounter Details +--------+ + + + + | Date | Type | Department | Care Team | Description | +--------+ + + + + | 06/29/ | Initial | [facility] [place] | Yasmin Orellana, | Cardiac pacemaker | | 2019 | consult | Cardiology Ama | [address] | (Primary Dx); | | | | [address] | Dr [place], | Encounter to | | | | [address] | [place] [address] | establish care; | | | | [place] [address] | [phone] | Essential | | | | [phone] | | hypertension; | | | | [...] Has been following up with Cardiology in [facility] for aortic valve stenosis. Had [...] 1. Chronic systolic decompensated heart failure, HFrEF CAH class III, stage C. 2. Hypertension. 3. [...] | | | | | | [place] [address] | | | | | | [phone] | | | | | | | [...] + + + + | Calculated P [place] | 60 | degrees | [facility] | + + + + + | Calculated R [place] | -95 | degrees | [facility] | + + + + + | Calculated T [place] | 34 | degrees | [facility] | + + + + + | Diagnosis | AV dual-paced rhythm | | [facility] EKG | | | with occasional | [...] | | | | | by [facility] [place] Read Only, | | | | | [facility] Valery (502), | | | | | editorial intern Farzad Nguyen | | | | | (253) on 06/29/2018 | | | | | 9:30:41 AM | | | + + + + + + + + + + | Performing | Address | City/State/Zipcode | Phone Number | | Organization | | | | + + + + + | [facility] | [address] | [place] [address] | | + + + + + [...]
--- OUTSIDE RECORDS SUMMARY | ~2018-09-22 | XMS | Clinical Summary ---
Demographics + + + | Address | [address] | | | [place] [address] | + + + | Home Phone | | + + + | Preferred Language | Unknown | + + + | Marital Status | | + + + | Sabianist Affiliation | 1069 | + + + | Race | Unknown | + + + | Ethnic Group | Unknown | + + + Author + + + | Author | [facility] | | | and [place] | + + + | Organization | [facility] | | | and [place] | + + + | Address | Unknown | + + + | Phone | Unavailable | + + + Support + + + + + | Name | Relationship | Address | Phone | + + + + + | Daniel Gomez | ECON | [place] | | | | | [address] | | + + + + + | Katherine Gomez L | ECON | [address] | | | | | [place] | | | | | [address] | | + + + + + | Katherine Gomez | ECON | [address] | | | | | [place] | | | | | [address] | | + + + + + Care Team Providers + +------+ + | Care Aircraft Rigging And Controls Mechanic Name | Role | Phone | [...] +--------+ +---------+ | MEDICARE | MEDICA | [id number] | Medica | [phone] | | | RE | | re | [phone] | | | | PART A | | | | | | | AND B | | | | | + +--------+ +--------+ +---------+ | [employer] [place] | MUTUAL | [id number] | Indemn | [phone] | | | OF | | ity | 1000 | | | | [place] | | | | | + +--------+ [...] | Self | [birth year] Home: | [address] [place] [address] | | | al/Fam | | 1940 | [phone] | [place] [address] | | | sid | | | [phone] | | + +--------+ +--------+ + +
--- OUTSIDE RECORDS SUMMARY | ~2018-09-22 | XMS | Clinical Summary ---
Demographics + + + | Address | [address] | | | [place] [address] | + + + | Home Phone | | + + + | Preferred Language | Unknown | + + + | Marital Status | | + + + | Uatsdin Affiliation | EPI | + + + [...] Phone | + + +---------+ + | FELA GOMEZ | ECON | Unknown | | + + +---------+ + Care Team Providers + +------+ + | Care Tea Tree Farm Worker Name | Role | Phone | + +------+ + | Sander Murphy MD | PP | | + +------+ + Source Comments YASSINE is fully live on both [facility] Ambulatory and [facility] InPatient.[facility] Allergies Not on File Current Medications Not on file Active Problems Not [...] on file | | + + + Plan of Treatment + + + + + | Health Maintenance | Due Date | Last Done | Comments | + + + + + | Pneumococcal (Adult) | | | | | (1 of 2 - PCV13) | 6 | | | + + + + + | Influenza (Flu) | | | | | vaccination (#1) | 8 | | | + + + + + Results Not on filefrom Last 3 Months Insurance + +--------+ +--------+ + + | Payer | Benefi | Subscriber | Type | Phone | Address | | | t Plan | ID | | | | | | / | | | | | | | Group | | | | | + +--------+ +--------+ + + | MEDICARE | MEDICA | xxxxxxxxxx | Medica | [phone] | [address] | | | RE A & | | re | [phone] | [place] [address] | | | B | | | | | + +--------+ +--------+ + + | [employer] [place] | MUTUAL | [id number] | Indemn | [phone] | [employer] [place] | | MEDICARE SUPPL | OF | | ity | [address] [place] | | | [place] | | | | [phone] | | | MEDICA | | | | | | | RE | | | | | | | SUPPL | | | | | + +--------+ +--------+ + + + +--------+ +--------+ + + | Guarantor Name | Accoun | Relation to | Date | Phone | Billing Address | | | t Type | Patient | of | | | | | | | | | | + +--------+ +--------+ + + | DAVID GOMEZ | Person | Self [birth year] | Home: | [address] | | | al/Fam | | 1940 | [phone] | [place] [address] | | | sid | | | [phone] | | + +--------+ +--------+ + +"
--- OUTSIDE RECORDS SUMMARY | ~2018-09-22 | XMS | Encounter Summary ---
Demographics + + + | Address | [address] | | | [place] [address] | + + + | Home Phone | | + + + | Preferred Language | Unknown | + + + | Marital Status | | + + + | Synagogue Affiliation | Unknown | + + + | Race | Unknown | + + + | Ethnic Group | Unknown | + + + Author + + + | Author | [facility] | + + + | Organization | [facility] | + + + | Address | Unknown | + + + | Phone | Unavailable | + + + Support + + + + + | Name | Relationship | Address | Phone | + + + + + | Katherine Daniel | ECON | [address] | | | | | [place] | | | | | [address] | | + + + + + Care Team Providers + +------+ + | Care Supervisor Machine Workers Name | Role | Phone | + [...] | | | | | [place] [address] | | | | | | [phone] | | | +--------+ + + + [...] | | | | | | [place] [address] | | | | | | [phone] | | | | | | | | +--------+---------+ + + + as of this encounter Visit Diagnoses Not on filein this encounter"
--- OUTSIDE RECORDS SUMMARY | ~2018-09-22 | XMS | Clinical Summary ---
Demographics + + + | Address | [address] | | | [place] [address] | + + + | Home Phone | | + + + | Preferred Language | Unknown | + + + | Marital Status | | + + + | Hinduism Affiliation | EPI | + + + [...] Team Providers + +------+ + | Care Biomedical Scientist Name | Role | Phone | + +------+ + | Sander Murphy MD | PP | | + +------+ + Source Comments YASSINE is fully live on both [facility] Ambulatory and [facility] InPatient.[facility] Allergies Not on File Current Medications Not [...] | re | [address] | [place] [address] | | | B | | | | | + +--------+ +--------+ + + | [employer] [place] | MUTUAL | [id number] | Indemn | [phone] | [employer] [place] | | MEDICARE SUPPL | OF | | ity | [address] | [place] | | | [place] | | | | [phone] | | | MEDICA | | | [...] | [birth year] | Home: | [address] | | | al/Fam | | 1940 | [phone] | [place] [address] | | | sid | | | [phone] | | + +--------+ +--------+ + +"
--- OUTSIDE RECORDS SUMMARY | ~2018-09-22 | XMS | Clinical Summary ---
Demographics + + + | Address | [address] | | | [place] [address] | + + + | Home Phone | | + + + | Preferred Language | Unknown | + + + | Marital Status | | + + + | Gnosticist Affiliation | Unknown | + + + | Race | Unknown | + + + | Ethnic Group | Unknown | + + + Author + + + | Author | [facility] | + + + | Organization | [facility] | + + + | Address | Unknown | + + + | Phone | Unavailable | + + + Support + + + + + | Name | Relationship | Address | Phone | + + + + + | Katherine Gomez | ECON | [address] | | | | | [place] | | | | | [address] | | + + + + + Care Team Providers + +------+ + | Care Die Hardener Name | Role | Phone | + [...] Overview: Overview: | | Medtronic Praveen II INDUSTRIAL REHABILITATION CONSULTANT-D ICD | | | | Last Assessment & Plan: | | Normal function. | + + + + + | Coronary atherosclerosis | 08/10/2011 | + + + | Diabetes mellitus, type II (HCC) | 08/10/2011 | + + + + + | Overview: Overview: | | ENRIQUEU [id number] Decision | + + + + + | Dyslipidemia | 08/10/2011 | + + + | Hypertension | 08/10/2011 | + + + | Ischemic cardiomyopathy | 08/10/2011 | + + + + + | Overview: Last Assessment & Plan: Severe MR by last echo. Was | | seeing Dr. Serra, wishes to establish care with [place] | | fuel injection servicer. Will refer to cardiology and try to arrange his | | appointment for when he is in [place] for his generator change. | + + [...] | | | | | | [place] [address] | | | | | | [phone] | | | | | | | [...] + + + + | Calculated P [place] | 60 | degrees | [facility] E[facility] | + + + + + | Calculated R [place] | -95 | degrees | [facility] | + + + + + | Calculated T [place] | 34 | degrees | [facility] EKG [...] | | | | | by [facility] [place] Read Only, | | | | | [facility] Valery (099), | | | | | technical writer and editor Farzad Nguyen | | | | | (253) on 06/29/2018 | | | | | 9:30:41 AM | | | + + + + + + + + + + | Performing | Address | City/State/Zipcode | Phone Number | | Organization | | | | + + + + + | [facility] | [address] | [place] [address] | | + + + + + [...] +------+-------+ + | MEDICARE | MEDICA | [id number] | | | [address] | | | RE | | | | [place] [address] | | | IP-OP | | | | | + +--------+ +------+-------+ + | [employer] [place] | MUTUAL | [id number] | | | | | | OF | | | | | | | [place] | | | | | + +--------+ [...] | | al/Lance | | 1940 | [phone] | [place] [address] | | | sid | | | [address] Home: | | | | | | | | | | | | | | [phone] | | | | | | | [phone] | | + +--------+ +--------+ + +"
--- OUTSIDE RECORDS SUMMARY | ~2018-09-22 | XMS | Encounter Summary ---
Demographics + + + | Address | [address] | | | [place] [address] | + + + | Home Phone | | + + + | Preferred Language | Unknown | + + + | Marital Status | | + + + | Methodist Affiliation | Unknown | + + + | Race | Unknown | + + + | Ethnic Group | Unknown | + + + Author + + + | Author | [facility] | + + + | Organization | [facility] | + + + | Address | Unknown | + + + | Phone | Unavailable | + + + Support + + + + + | Name | Relationship | Address | Phone | + + + + + | Katherine Daniel | ECON | [address] | | | | | [place] | | | | | [address] | | + + + + + Care Team Providers + +------+ + | Care Superior Court Justice Name | Role | Phone | + [...] | | | | | | [facility] [address] | | | | | | [place], [place] [address] | | | | | | [phone] | | | +--------+ + + + [...] [place], | | | | | | [place] [address] | | | | | | [phone] | | | | | | | | +--------+---------+ + + + as of this encounter Visit Diagnoses Not on filein this encounter"
[~2018-09-22 09:58] MED LIST changes: +IBUPROFEN600 MG PO; +OXYCODON-ACETA1 EAC2 PO
--- OUTSIDE RECORDS SUMMARY | 2018-09-22 10:04 | XMS ---
PreManage Notification: STEVE GOMEZ Security Permastone Mechanic Events No recent Security Events currently on file CRITERIA MET - PINOP CARE PROVIDERS Sander Murphy MD Primary Care Current PHONE: [phone] orellie Case or Ancillary Services Manager Current PHONE: Unknown Eleni has no Care Guidelines for this patient. ESolitario VISIT COUNT (12 MO.) 1 JORDAN Marion TOTAL 1 NOTE: Visits indicate total known visits. ED/UCC VISIT TRACKING (12 MO.) 09/22/2018 09:[address] [facility] TYPE: Emergency COMPLAINT: - ABD PAIN, EXTREMITY SWELLING NON INJURY INPATIENT VISIT TRACKING (12 MO.) No inpatient visits to display in this time frame [email or web address]
[2018-09-22] MEDS ORDERED: LASIX20 MG PO (10:39)
[2018-09-22] MEDS ORDERED: HYDRALAZINE HCL50 MG PO (10:40)
[2018-09-22] MEDS ORDERED: AMITIZA24 MCG PO (10:41)
[2018-09-22] MEDS ORDERED: IBU600 MG PO (10:45)
[2018-09-22] MEDS ORDERED: NEURONTIN100 MG PO (10:46)
[2018-09-22] MEDS ORDERED: HYDROCODON-ACE1 EAC8 PO (10:46)
[2018-09-22] MEDS ORDERED: CBD OIL PO (10:47)
[2018-09-22] MEDS ORDERED: NITROGLYCERIN0.4 MG SL (10:47)
== END 2018-09-22 14:45 | disposition home or self-care (01) ==
LOC: ED 09:58
DX: K56.7 Ileus, unspecified (principal); R60.1 Generalized edema; E11.9 Type 2 diabetes mellitus without complications; I11.0 Hypertensive heart disease with heart failure; I50.9 Heart failure, unspecified; G47.30 Sleep apnea, unspecified; Z79.899 Other long term (current) drug therapy
CPT/HCPCS: 71046; 74018; 74177; 80053; 83880; 85025; 96374; 99285-25; J1170; Q9967

== ENCOUNTER 2019-02-23 13:46 | Emergency (ER) | payer MEDICARE, OTHER ==
[~2019-02-23] VITALS: Ht 182.9 cm; Wt 68.5 kg
[~2019-02-23 13:46] MED LIST changes: +AMITIZA24 MCG PO; +CBD OIL PO; +HYDRALAZINE HCL50 MG PO; +HYDROCODON-ACE1 EAC8 PO; +IBU600 MG PO; +LASIX20 MG PO; +NEURONTIN100 MG PO; +NITROGLYCERIN0.4 MG SL
--- OUTSIDE RECORDS SUMMARY | 2019-02-23 13:50 | XMS ---
PreManage Notification: STEVE GOMEZ Security Tubular Splitting Machine Tender Events No recent Security Events currently on file CRITERIA MET - [facility] - Has Care Guidelines - PDMP CARE PROVIDERS Itz Cm Internal Medicine: Pulmonary Disease 09/23/2018-Current PHONE: Unknown Sander Murphy MD Primary Care Current PHONE: [phone] chey Case or Computer Security Manager Current PHONE: Unknown Eleni has no Care Guidelines for this patient. Care History Medical/Surgical 09/23/2018 [facility] - Patient is currently established with [facility]. If patient is seen in the ED during business hours. Please contact CHWs at [facility]. Care Recommendation: This patient has had 5 or more Emergency Department visits in the last 12 months.\T\nbsp; Patient requires education on the scope and purpose of the ED as an acute care provider not a Primary Care Provider and should not be utilized for chronic conditions.\T\nbsp; These are guidelines and the provider should exercise clinical judgment when providing care. E.D. VISIT COUNT (12 MO.) 2 [facility] TOTAL 2 NOTE: Visits indicate total known visits. ED/C VISIT TRACKING (12 MO.) 02/23/2019 13:47 [facility] [place] TYPE: Emergency COMPLAINT: - ABD PAIN 09/22/2018 09:[address] [facility] [place] TYPE: Emergency COMPLAINT: - ABD PAIN, EXTREMITY SWELLING NON INJURY DIAGNOSES: - Hypertensive heart disease with heart failure - Type 2 diabetes mellitus without complications - Heart failure, unspecified - Generalized edema - Other senior living (current) drug therapy - Ileus, unspecified - Sleep apnea, unspecified - Abdominal distension (gaseous) INPATIENT VISIT TRACKING (12 MO.) No inpatient visits to display in this time frame [email or web address]
[2019-02-23] MEDS ORDERED: K-TAB ER20 MEQ PO (14:07)
[2019-02-23] MEDS ORDERED: DEMADEX20 MG PO (14:15)
[2019-02-23] MEDS ORDERED: VENLAFAXINE HCL75 MG PO (14:41)
[2019-02-23] MEDS ORDERED: BACLOFEN10 MG PO (14:42)
[2019-02-23] MEDS ORDERED: MORPHABOND ER15 MG PO (14:43)
== END 2019-02-23 18:36 | disposition home or self-care (01) ==
LOC: ED 13:46
DX: R10.9 Unspecified abdominal pain (principal); E87.1 Hypo-osmolality and hyponatremia; H61.22 Impacted cerumen, left ear; I11.0 Hypertensive heart disease with heart failure; E11.9 Type 2 diabetes mellitus without complications; I50.9 Heart failure, unspecified; Z79.4 Long term (current) use of insulin; Z79.899 Other long term (current) drug therapy
CPT/HCPCS: 74177; 80053; 81001; 83690; 85025; 99284-25; J7040; Q9967

== ENCOUNTER 2019-11-13 16:39 | Inpatient (IN) | payer MEDICARE, OTHER ==
[~2019-11-13] VITALS: Ht 185.4 cm; Wt 84.4 kg
--- OUTSIDE RECORDS SUMMARY | ~2019-11-13 | XMS | Encounter Summary ---
Demographics + + + | Address | [address] | | | [place] [address] | + + + | Home Phone | | + + + | Preferred Language | Unknown | + + + | Marital Status | | + + + | Synagogue Affiliation | 1069 | + + + | Race | Unknown | + + + | Ethnic Group | Unknown | + + + Author + + + | Author | Located Within [facility] | | | and [place] | + + + | Organization | Located Within [facility] | | | and [place] | + + + | Address | Unknown | + + + | Phone | Unavailable | + + + Support + + + + + | Name | Relationship | Address | Phone | + + + + + | Daniel Daniel | ECON | [place] | | | | | [address] | | + + + + + | Katherine Daniel | ECON | [address] | | | | | [place] | | | | | [address] | | + + + + + | Katherine Daniel | ECON | [address] | | | | | [place] | | | | | [address] | | + + + + + Care Team Providers + +------+ + | Care Power Hair Clipper Name | Role | Phone | + +------+ + PCP | Unavailable | + +------+ + Encounter Details +--------+ + + + + | Date | Type | Department | Care Team | Description | +--------+ + + + + | 08/09/ | Hospital | [facility] | Conversion | [facility]IG [facility] | | 2004 | Encounter | CONVERSION DEP [address] | Transaction, | LYMPH-HEAD/NECK | | | | [address] | Provider Unknown | (HCC) | | | | [place], [place] | [phone] | | | | | [address] | | | | | | [phone] | | | +--------+ + + + + Social History + +-------+ +--------+------+ | Tobacco Use | Types | Packs/Day | Years | Date | | | | | Used | | + +-------+ +--------+------+ | Never Assessed | | | | | + +-------+ +--------+------+ + + + | Sex Assigned at | Date Recorded | | | | + + + | Not on file | | + + + + + + + | Job Start Date | Occupation | Industry | + + + + | Not on file | Not on file | Not on file | + + + + + + + + | Travel History | Travel Start | Travel End | + + + + + + | No recent travel history available. | + + documented as of this encounter Plan of Treatment +--------+ + + + + | Date | Type | Specialty | Care Team | Description | +--------+ + + + + | 12/18/ | Procedure | Cardiology | | | | 2019 | visit | | | | +--------+ + + + + | 03/20/ | Office | Cardiology | Yasmin Bates, | | | 2019 | Visit | | MD Aamir YOON | | | | | | [place] | | | | | | [address] | | | | | | | | +--------+ + + + + documented as of this encounter Visit Diagnoses + + | Diagnosis | + + | Secondary and unspecified malignant neoplasm of lymph nodes of head, face, and neck | + + documented in this encounter"
--- OUTSIDE RECORDS SUMMARY | ~2019-11-13 | XMS | Encounter Summary ---
Demographics + + + | Address | [address] | | | [place] [address] | + + + | Home Phone | | + + + | Preferred Language | Unknown | + + + | Marital Status | | + + + | Jew Affiliation | 1069 | + + + | Race | Unknown | + + + | Ethnic Group | Unknown | + + + Author + + + | Author | [facility] | | | and [place] | + + + | Organization | [facility] | | | and [place] | + + + | Address | Unknown | + + + | Phone | Unavailable | + + + Support + + + + + | Name | Relationship | Address | Phone | + + + + + | Daniel Daniel | ECON | [place] | | | | | [address] | | + + + + + | Katherine Daniel | ECON | [address] | | | | | [place] | | | | | [address] | | + + + + + | Katherine Daniel | ECON | [address] | | | | | [place] | | | | | [address] | | + + + + + Care Team Providers + +------+ + | Care Kicking Machine Operator Name | Role | Phone | + +------+ + PCP | Unavailable | + +------+ + Encounter Details +--------+ + + + + | Date | Type | Department | Care Team | Description | +--------+ + + + + | 03/26/ | Hospital | [facility] | Cali Alatorre, | | | 2010 - | Encounter | [facility] | [address] | | | | | [address] | [place] | | | 03/31/ | | [place] [id number] | [id number] | | | 2010 | | [phone] | [phone] | | | | | | | [...] + + documented as of this encounter Progress Notes Cali Alatorre MD - 03/26/2011 10:30 AM PDTDATE: 03/31/2011 RADIATION ONCOLOGY FOLLOWUP NOTE FOLLOWUP NOTE: Mr. 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 The patient has had multiple re currences over the number of years and did have multiple different and alternative therapies, includi ng insulin high-dose vitamin C, as well as intralesional ch emotherapy. Earlier this year, the patient was treated with 3000 cGy to a locally advanced submental node and did have good reduction in size o f that lesion. This summer the patient was found to have bilateral cervical lymphadenopathy and recen tly completed a course of d efinitive radiotherapy to this region, including the base of tongue and ly mph node regions . The patient did receive 7000 cGy to the base of tongue and involved lymph nodes 594 0 cGy to the elective franki regions, completing those treatments on 03/12/2011. The patient comes in today for first followup. Mr. Daniel did experience much difficulty towards the end of his treatment and immediate time following with marked discomfort with swallowing and difficulty maintaining his hydration and nutrition. The p atient states he has lost approximately 20 pounds during his course of treatment. Mr. Daniel comes in t heather and states that he has had a marked reduction in his d iscomfort. He states that his taste has ma rkedly improved and has enjoyed a Taiwanese dinner as well as a salmon dinner and was very pleased with his ability to taste those meals. He states that his dryness of mouth has markedly improved as well. He continues to have some d iscomfort in the mouth and tongue but has been able to markedly reduce hi s pain medication that he needs for this. He states that his energy level continues to be down, altho ugh fe els that it is improving. PHYSICAL EXAMINATION VITAL SIGNS: Weight is 73.9 kg which is down from 85.8 kg on 01/27. Blood pressure is 116/5 6, pulse i s 80, temperature of 36.1 degrees Celsius. GENERAL: The patient is awake, alert and oriented x3 and does not appear in any distress. HEAD AND NECK: Head is atraumatic, normocephalic. The patient does have hyperpigmentation o f the bila teral neck with mild dry desquamation and dryness of skin noted. No areas of sue akdown noted. Oral mu cosa is moist and pink with no evidence of mucositis in the oral cavi ty, soft palate or posterior rojelio pharynx. On indirect mirror exam, base of tongue was free of any abnormality. Floor of mouth, tongue, and base of tongue were all soft to palpation. There was no cervical or supraclavicular lymphadenopa thy appreciated bilaterally. ASSESSMENT AND PLAN: Mr. David Daniel is A little over 2 weeks out from completion of his chemoradio therapy for treatment of his recurrent squamous cell carcinoma. The patient did experience significan t acute toxicity from his chemoradiotherapy treatment, but has made r emarkable improvement over the l ast 2 weeks. The patient is able to taste a lot more and d oes have a bigger appetite than he has. He is able to swallow without too much pain at this time. He is confident that he can maintain adequate nutrition and hydration at this time. We did discuss having him seen by Dr. Feliz, ENT surgeon in [facility] for further followu p as well as myself. At this time we would like the patient to return in 2 months for [facility] followup. The patient and his are agreeable to this plan. DICTATED BY: Cali Alatorre MD Radiation Oncology JOB #: [id number] EXT JOB #:[id number] cc: MD Faizan Lauren MD <Electronically Signed by Cali Alatorre MD> 04/11/11 1025 documented in this encounter Plan of Treatment +--------+ + [...] [place] | | | | | | [place] | | | | | | [address] | | | | | | | | +--------+ + + + + documented as of this encounter Visit Diagnoses Not on filedocumented in this encounter"
--- OUTSIDE RECORDS SUMMARY | ~2019-11-13 | XMS | Encounter Summary ---
Demographics + + + | Address | [address] | | | [place] [address] | + + + | Home Phone | | + + + | Preferred Language | Unknown | + + + | Marital Status | | + + + | Adventist Affiliation | 1069 | + + + | Race | Unknown | + + + | Ethnic Group | Unknown | + + + Author + + + | Author | [facility] | | | and [place] | + + + | Organization | [facility] | | | and [place] | + + + | Address | Unknown | + + + | Phone | Unavailable | + + + Support + + + + + | Name | Relationship | Address | Phone | + + + + + | Daniel Daniel | ECON | [place] | | | | | [address] | | + + + + + | Katherine Daniel | ECON | [address] | | | | | [place] | | | | | [address] | | + + + + + | Katehrine Daniel | ECON | [address] | | | | | [place] | | | | | [address] | | + + + + + Care Team Providers + +------+ + | Care Machine Presser Name | Role | Phone | + +------+ + | Tracie Cm MD | PCP | | + +------+ + Reason for Visit + + + | Reason | Comments | + + + | Device Check | | + + + Encounter Details +--------+ + + + + | Date | Type | Department | Care Team | Description | +--------+ + + + + | 03/22/ | Telephone | [facility] | Alireza Urbina, | Device Check | | 2019 | | CARDIOLOGY [facility] | [address] | | | | | [address] | [place], [place] | | | | | [place], [place] | [address] | | | | | [address] | | | | | | [phone] | | | +--------+ + + + [...] + +---------+ + | Alcohol Use | Drinks/Week | oz/Week | Comments | + + +---------+ + | Yes | | | Alcoholic | | | | | Drinks/day: rarely | + + +---------+ + + [...] [place] | | | | | | [id number] | | | | | | | | +--------+ + + + + documented as of this encounter Visit Diagnoses Not on filedocumented in this encounter"
--- OUTSIDE RECORDS SUMMARY | ~2019-11-13 | XMS | Encounter Summary ---
Demographics + + + | Address | [address] | | | [place] [address] | + + + | Home Phone | | + + + | Preferred Language | Unknown | + + + | Marital Status | | + + + | Buddhist Affiliation | 1069 | + + + | Race | Unknown | + + + | Ethnic Group | Unknown | + + + Author + + + | Author | [facility] | | | and [place] | + + + | Organization | [facility] | | | and [place] | + + + | Address | Unknown | + + + | Phone | Unavailable | + + + Support + + + + + | Name | Relationship | Address | Phone | + + + + + | Daniel Daniel | ECON | [place] | | | | | [phone] | | + + + + + | Katherine Daniel | ECON | [address] | | | | | [place] | | | | | [phone] | | + + + + + | Katherine Daniel | ECON | [address] | | | | | [place] | | | | | [address] | | + + + + + Care Team Providers + +------+ + | Care Home Paraprofessional Name | Role | Phone | + +------+ + PCP | Unavailable | + +------+ + Encounter Details +--------+ + + + + | Date | Type | Department | Care Team | Description | +--------+ + + + + | 01/20/ | Hospital | [facility] | | | | 2010 - | Encounter | [facility] | | | | | | [facility] [address] | | | | 01/25/ | | [place] | | | | 2010 | | [id number] | | | | | | [phone] | | | +--------+ + + + [...] + documented as of this encounter Progress Rodger Melchor MD - 01/01/2011 3:29 AM PDTCONSULTATION: 01/20/2011 IDENTIFYING STATEMENT: Papo Baca "Michael Daniel is a 70 year old man from [facility] on with 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 ACTIVE DIAGNOSES: 1. Rosas presented with palpable adenopathy in the right side of the neck December 23, 2000. 2. Right superior jugular lymph node excisional biopsy demonstrated metastatic squamous ce ll carcinoma. Complete evaluation of the upper airway, including multiple biopsies, did not confirm the site of origin. 3. Initial management was at the [facility] in [place] (also known as the [facility] in [place], [place]). Treatments included intravenous high-dose vitamin C. 4. On June 06, 2002, he developed recurrent palpable lymphadenopathy in the left side of the neck that was biopsied and confirmed recurrence of squamous cell carcinoma. 5. Between 17 08 and 2003, he received intravenous chemotherapy at the [facility] in [place], [place], including insulin potentiation therapy. 6. He traveled to the [facility] where he received additional insulin potentiation therapy and intralesional injection of chemotherapy between 2003 and 2004. 7. He then cross ed over to naturopathic treatment following the Oliver regimen. 8. In December 2007, he develo ped progressive submental lymphadenopathy that was confirmed to be malignant by CT PET scan February 23, 2009. 9. On March 21, 2009, he began therapy the [facility] with sodium phenylbutyrat e, Rapamune, and oral Xeloda chemotherapy. He continued on the treatment plan with vari ous doses and schedules with stable submental lymphadenopathy until September 25, 2009. 10. He cros sed over to Vectibix chemotherapy September 25, 2009 through January 29, 2010. Repeat CT scan on February 07, 2010 at [facility] in [place], [place] demonstrated progres susannah of disease with increase in size of the submental lymph node, previously 18 x 18 mm and subsequently 30 mm x 27 mm. There were smaller satellite lesions surrounding the submental metas tases, including a 16 mm satellite lesion just to the right of the dominant mass and a 14 x 13 mm satellite lesion just to the left of the dominant mass. In addition, there was new right cerv ical lymphadenopathy in the sternocleidomastoid region. 11. He was then lost to medical oncology follow-up and was treating his progressive submental malignant lymphadenopathy with application of ludin packs. 12. In July 2010, he had erosion of the submental lymphadenopathy through the skin. O n August 08, 2010, he had a consultation with Dr. Lennon at the [facility] in [place], [place], who recommended palliative radiation therapy. He went on t o receive 3000 centigray in 10 fractions limited only to the submental metastasis between August 11, 2010 and August 25, 2010. Treatment plan was entirely for palliation of bleeding from his submental metastasis and he returned promptly to his alternative medical regimen after complet ing his radiation therapy treatment plan. 13. On September 24, 2010 one month after completing his radiation therapy treatment plan, he returned to see Dr. Silas German at the [facility] in [place], [place], who noted significant decrease in the size of the submental mass. He continued on a lternative medical regimens until January 01, 2011 when he returned to the [facility] in [place], [place] and was evaluated by Dr. Bryant Navas, who not ed multiple palpable bilateral cervical lymph nodes. Dr. Bryant Navas has recommended a mor e definitive combined modality treatment approach to his recurrent head and neck cancer with 7000 centigray given concurrently with systemic chemotherapy. Mr. Daniel is now referred to me by Dr. Bryant Navas for consideration of combined modal ity therapy of his recurrent head and neck cancer. PAST MEDICAL HISTORY: 1. Coronary artery disease. 2. Ischemic cardiomyopathy with an estimated ejection fraction of 30%. 3. Hypertension. 4. Hypercholesterolemia. 5. Jqy-wahhuya-bieuvjwbt diabetes. PAST SURGICAL HISTORY: 1. Coronary artery bypass graft in 1988. 2. Neck dissection at [facility] in 2000. 3. Percutaneous translu rohit coronary artery angioplasty in 2002. 4. Coronary artery bypass grafting January 24. 5. Percutaneous transluminal coronary artery angioplasty in September 2007. 6. Status post p lacement of an automatic implantable cardioverted defibrillator January 31, 2008. HABITS: ALCOHOL: No use or abuse of alcohol. TOBACCO: No use or abuse of tobacco. FAMILY HISTORY: No history of cancer in first degree relatives. 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 He is to Katherine, who comes to the clinic with him today and is very s upportive of his care. ROUTINE MEDICATIONS: Caphosol oral solution, one unit dose orally four times daily Coreg 37.5 mg orally twice d aily Lasix 20 mg orally daily Lantus insulin 10-20 units subcutaneously at bedtime Lispro insulin 5-7 units subcutaneously three times a day before meals Lisinopril 20 mg or ally twice daily Oxycodone 5 mg as needed Trazodone 50 mg orally at bedtime ALLERGIES: No known drug allergies. PHYSICAL EXAMINATION: Weight is 84.2 kg, temperature 36.6 degrees Celsius, blood pressure 139/66, pulse 58. Karnofsky Performance Status is 80%. Oxygen saturation is 97% on room air. EYES: Notable for epiphora due to facial edema. ENMT: Notable for significant facial edema. CARDIOVASCULAR: Regular rate and rhythm. Normal S1 and S2 without murmur, gallop, or rub . LUNGS: Good air movement bilaterally. No rhonchi, wheeze, or rales. CHEST: Right anterior chest AICD is without surrounding tenderness or erythema. LYMPH NODES: There is a palpable low right anterior cervical lymph node. There is a palp able superior right cervical lymph node. SKIN: No petechiae, ecchymoses, or rash. EXTREMITIES: No cyanosis, clubbing, or edema. NEUROLOGIC: Alert and oriented times three. Face symmetric. Voice articulate. Station and gait within normal limits. STUDIES: No new laboratory data to review. PET scan from January 08, 2011 is reviewed. This demonstrates the following areas of disease : 1. Right base of tongue, 1.56 cm in diameter. Mean SUV 4.1, maximum SUV 9.11. 2. Submen parish lymph node 1.43 cm x 0.84 cm. Mean SUV 3.72, maximum SUV 4.4. 3. Right superior cervi kia lymph node 1.91 cm in diameter. Mean SUV 5.04, maximum SUV 7.36. ASSESSMENT: Rosas Daniel has had regionally metastatic squamous cell carcinoma, likely of t he right base of tongue, for almost 11 years now. Rosas has had extensive consultation wit h Dr. Bryant Navas, who has encouraged him to consider definitive radiation therapy giv en concurrently with chemotherapy. Rosas and I discussed the risks, benefits, and alternatives to combined modality therapy w ith cisplatin 30 mg/m2 given on a weekly schedule during the course of his radiation therapy. Duration of cisplatin chemotherapy will depend on the course of his radiation. It will begin with t he initiation of his radiation and will be completed when his radiation therapy treatment p joshua is done. We talked about the side effects of cisplatin chemotherapy, which include but are not limi kimber to, nausea, vomiting, fatigue, anorexia, low blood counts, and the potential for kidney damage. We also talked about the fact that cisplatin chemotherapy may exacerbate pharynge al injury from his radiation. This may ultimately culminate in the need for a gastrostomy feeding tube at the end of his therapy. After discussing the risks, benefits, and alternatives of adding cisplatin chemotherapy to Rosas's radiation therapy treatment plan, he is anxious to proceed and will return to the medical oncology clinic on January 26, to begin combined modality treatment. I recom mend that his antiemetic regimen not include dexamethasone because of his history of diabet es. <Electronically Signed by Rodger Gu MD> 01/22/11 1417 Bryant Navas W - 01/01/2011 3:29 AM PDTDATE: 01/14/2011 RADIATION ONCOLOGY FOLLOWUP NOTE BRIEF HISTORY: Mr. Daniel is a 70-year-old male with locally advanced squamous cell carcino ma of the base of tongue. He has a complicated history, which has been documented in previo us notes. In short, however, he was initially diagnosed 11 years ago and has never undergon e definitive therapy. He chose instead to pursue a multiplicity of alternative therapies an d some systemic chemotherapies provided by Dr. Gu. He has never received definitiv e radiation, but he has received palliative radiation to an ulcerative submental lymph nod e. He recently underwent a CT simulation for possible treatment planning purposes as well a s a PET CT for reevaluation. The PET CT shows evidence of disease confined to the head and neck region, ton include the base of tongue primary, a left cervical lymph node, a right de ep parotid lobe lesion , and a supraclavicular lymph node. The patient has been offered def initive chemoradiation, and he returns today for further discussion of this treatment opti on. An extensive period of time was spent discussing the patient's concerns regarding toxiciti es and the expected treatment course. We reviewed the possible risks and outcomes of roller embosser al beam radiation to the head and neck region delivered with concurrent chemotherapy as wel l as the potential problems posed by the fact that the patient has had a palliative dose of radiation to a submental lymph node. I explained to the patient that this makes definitive chemoradiation technically difficult but, in my opinion, not impossible. The risk would b e either overlap with the previously treated area in the submental region versus avoiding o verlap and risk missing microscopic disease in this area , which would then condemn the pat ient to potential failure in the head and neck region. Given the fact that he only received a palliative dose of 3000 cGy to a submental lymph node, I think it would be reasonable to provide slight overlap of the previously treated submental region in order to encompass al l PET positive disease. The patient is still not prepared to make a final decision regardi ng his treatment at this time. He has been set up to meet with another patient who has been treated in the past with chemoradiation. This was arranged by Social Work here in the clin ic. The patient will contact our department within the next week with his final decision, a nd we will proceed accordingly. If he chooses to proceed with definitive chemoradiation, we would coordinate with Dr. Gu for the chemotherapy, and the intention would be to deliver 7000 cGy to all areas of PET positive disease using intensity modulated radiation therapy. DICTATED BY: Bryant Navas MD Radiation Oncology JOB #: [id number] EXT JOB #:[id number] EDITED: 01/14/2011 12:26 <Electronically Signed by Bryant Navas MD> 01/15/11 0818 Jose Cole W - 01/01/2011 3:29 AM PDTDATE: 01/01/2011 RADIATION ONCOLOGY FOLLOWUP NOTE BRIEF HISTORY: Mr. Daniel is a 70-year-old male who has been seen previously in this clinic and has completed a course of palliative radiation to an ulcerating submental lymph node, secondary to disease involvement from his previously diagnosed squamous cell carcinoma of t he base of tongue. His history dates back to 2000, at which time he was diagnosed as having a base of tongue lesion, with cervical lymph node involvement. He did not received any def initive therapy, however, he has had numerous nonconventional treatments, as well as some systemic chemotherapy, all of which are documented in the patient's record. His only prior radiation was to the ulcerative submental lymph node mentioned above , which received a dos e of 3000 cGy, and was completed in 07/2010. At that time , he had no specific followup enio eduled, and he returns to the clinic today with questions regarding doing further palliativ e radiation to what he identifies as increasing masses in the bilateral neck, but not withi n the submental region previously radiated. He denies any pain in these neck nodules, nor any difficulty with swallowing. He has no other focal areas of pain nor any systemic sympto ms, such as bone pain, weight loss, shortness of breath, chest pain, or headaches. He does report occasional sharp, shooting pains in the right eye, however, these are intermittent a nd short lived. They are not accompanied by any other concomitant symptoms or problems. He has not had any recent imaging studies for evaluation of his disease. PHYSICAL EXAMINATION VITAL SIGNS: Blood pressure 156/82, pulse 56, weight 83.6 kg, temperature 36.5 degrees Ce lsius. GENERAL: Well appearing, in no acute distress. HEENT: The patient has post-surgical changes on the right side of the neck from an excisi onal biopsy done in 2000, and he also has submental fibrosis from his palliative radiation previously described. Palpation of the neck reveals multiple palpable lymph nodes in the ce rvical lymph node chain. There are no palpable supraclavicular lymph nodes. CARDIAC: Regular rate and rhythm. PULMONARY: Clear to auscultation bilaterally. NEUROLOGIC: Cranial nerves 2 through 12 are grossly intact. MUSCULOSKELETAL: Normal station and gait, with no gross abnormalities. RADIOGRAPHS: None. IMPRESSION: A 70-year-old male with squamous cell carcinoma of the base of tongue, status post several different types of nonconventional therapy with some systemic chemotherapy, a nd palliative radiation to his submental lymph node. He now has evidence of local progressi on of disease. RECOMMENDATIONS: After reviewing the patient's chart, I find that there are numerous note s which document his disease as being metastatic squamous cell carcinoma of the base of ton raji. Unfortunately, I am unable to find any corroborating evidence in the chart, either in the form of radiographic reports or pathologic specimens, which document any distant sites of metastatic disease. It is possible that at the time of his original diagnosis in 2000, with a base of tongue primary, which has technically metastasized to the lymph nodes, that he earned himself a description of having metastatic disease, but again, I am unable to doc ument any distant sites of disease. He has never received any definitive therapy, which wou ld be described as either concomitant chemoradiation or surgical resection, and surgical re section of a base of tongue primary would likely leave this patient with unacceptable morbi dities. Also documented in the patient's chart are numerous previous recommendations for h im to receive chemoradiation, which were always declined by the patient, secondary to salome rns about the toxicity of such treatments, and he chose instead to pursue alternative thera pies and dietary management. Aside from some systemic chemotherapy including oral XELODA, t he patient would appear not to have received any significant cytotoxic treatments. I discus sed with the patient the fact that since he has had palliative radiation to the submental lymph nodes, it would make definitive radiation to his primary and to the lymphatics of the head and neck region challenging, but not impossible, also preferably given with systemic chemotherapy. At this time, it is unclear what the status of the patient's disease would be , and the extent of its involvement , and therefore, I have ordered a PET CT scan to be per formed next week for re- staging evaluation. If, in fact, the patient is found to have only locally advanced disease with head and neck involvement above the clavicles, then it is c onceivable that we could offer this patient a definitive treatment course with concurrent c hemotherapy and radiation. I briefly described the potential side effects, as well as the e xpected outcomes and course of treatment, with external beam radiation delivered using inte nsity modulated radiation therapy. The patient would seem at this time to be open to furthe r evaluation and consideration for curative treatment options. If, on the other hand, this PET CT scan does identify probable distant sites of disease, then palliative radiation wou ld be the only remaining option from a radiation standpoint. Given the fact that he has no pain in the neck and no difficulty swallowing, I would not recommend palliative radiation t o be performed immediately, and would rather monitor this patient with routine clinical fol lowup exams approximately every 3 months for reevaluation, and would proceed with palliativ e radiation when and if he becomes locally symptomatic. We will therefore await the outcome of his upcoming PET scan for re-staging and will proceed accordingly. DICTATED BY: Bryant Navas MD Radiation Oncology JOB #: [id number] EXT JOB #:[id number] EDITED: 01/02/2011 05:42 <Electronically Signed by Bryant Navas MD> 01/02/11 1141 documented in this encounter Plan of Treatment [...] SAINI | | | | | | [id number] | | | | | | | | +--------+ + + + + documented as of this encounter Visit Diagnoses Not on filedocumented in this encounter
--- OUTSIDE RECORDS SUMMARY | ~2019-11-13 | XMS | Encounter Summary ---
Demographics + + + | Address | [address] | | | [place] [address] | + + + | Home Phone | | + + + | Preferred Language | Unknown | + + + | Marital Status | | + + + | Jew Affiliation | [phone] | + + + | Race | Unknown | + + + | Ethnic Group | Unknown | + + + Author + + + | Author | [facility] | | | and [place] | + + + | Organization | [facility] | | | and [place] | + + + | Address | Unknown | + + + | Phone | Unavailable | + + + Support + + + + + | Name | Relationship | Address | Phone | + + + + + | Daniel Daniel | ECON | [place] | | | | | [address] | | + + + + + | Katherine Daniel | ECON | [address] | | | | | [place] | | | | | [address] | | + + + + + | Katherine Daniel | ECON | [address] | | | | | [place] | | | | | [address] | | + + + + + Care Team Providers + +------+ + | Care Crystal Syrup Maker Name | Role | Phone | + +------+ + | Tracie Cm MD | PCP | | + +------+ + Reason for Referral Diagnostic/Screening (Routine) + +--------+ + + + + | Status | Reason | Specialty | Diagnoses / | Referred By | Referred To | | | | | Procedures | Contact | Contact | + +--------+ + + + + | Authorizatio | | Radiology | Diagnoses | Jana | [facility] | | n not | | | Ischemic | MD Des | [address] | | Required | | | cardiomyopat | [address] | | | | | hy | [address] | [place], [place] | | | | | Non-rheumati | [place] | [address] | | | | | c mitral | [place], [place] | Phone: | | | | | regurgitatio | [address] | [phone] | | | | | n Chronic | Phone: | Fax: | | | | | diastolic | [phone] | [phone] | | | | | congestive | Fax: | | | | | | heart | [phone] | | | | | | failure | | | | | | | ([facility]) | | | | | | | Coronary | | | | | | | artery | | | | | | | disease of | | | | | | | bypass graft | | | | | | | of red cliff | | | | | | | heart with | | | | | | | stable | | | | | | | angina | | | | | | | pectoris | | | | | | | (HCC) | | | | | | | Biventricula | | | | | | | r ICD | | | | | | | (implantable | | | | | | | | | | | | | | cardioverter | | | | | | | -defibrillat | | | | | | | or) in place | | | | | | | S/P mitral | | | | | | | valve clip | | | | | | | implantation | | | | | | | Procedures | | | | | | | ECHO | | | | | | | Complete | | | + +--------+ + + + + Reason for Visit + + + | Reason | Comments | + + + | Follow-up | | + + + Encounter Details +--------+---------+ + + + | Date | Type | Department | Care Team | Description | +--------+---------+ + + + | 11/07/ | Office | [facility] | Des Orellana, | Ischemic | | 2020 | Visit | CARDIOLOGY CHARAN | MD [address] | cardiomyopathy | | | | [address] | [address] [address] [place], [place] | (Primary Dx); | | | | [address] | [address] | Non-rheumatic mitral | | | | [place] | | regurgitation; | | | | [address] | | Chronic diastolic | | | | [phone] | | congestive heart | | | | | | failure (HCC); | | | | | | 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 | | | | | | angina pectoris | | | | | | (HCC); Biventricular | | | | | | ICD (implantable | | | | | | cardioverter-defibri | | | | | | llator) in place; | | | | | | S/P mitral valve | | | | | | clip implantation | +--------+---------+ + + + Social History + +-------+ [...] Comments | + + +---------+ + | Not Currently | | | | + + +---------+ + + + [...] + + documented as of this encounter Last Filed Vital Signs + + + + + | Vital Sign | Reading | Time Taken | Comments | + + + + + | Blood Pressure | 128/64 | 11/08/2019 3:12 PM | | | | | PDT | | + + + + + | Pulse | 67 | 11/08/2019 3:12 PM | | | | | PDT | | + + + + + | Temperature | - | - | | + + + + + | Respiratory Rate | - | - | | + + + + + | Oxygen Saturation | 94% | 11/08/2019 3:12 PM | | | | | PDT | | + + + + + | Inhaled Oxygen | - | - | | | Concentration | | | | + + + + + | Weight | 76.7 kg (169 lb) | 11/08/2019 3:12 PM | | | | | PDT | | + + + + + | Height | 185.4 cm (6' 1") | 11/08/2019 3:12 PM | | | | | PDT | | + + + + + | Body Mass Index | 22.3 | 11/08/2019 3:12 PM | | | | | PDT | | + + + + + documented in this encounter Progress Notes Des Orellana MD - 11/08/2019 3:00 PM PDTFormatting of this note might be different f rom the original. Date of visit: 11/08/2019 Primary Care Physician: Tracie Cm MD CHIEF COMPLAINT: Chief Complaint Patient presents with Follow-up HISTORY OF PRESENT ILLNESS: David is 79 y.o. here for follow-up visit. Complex past medical history. Ischemic card iomyopathy severe mitral regurgitation status post 2 mitral clips. Has been feeling fairly well lately. Does yoga lessons and short walks. No hospitalizati on. Gained weight since prior evaluation, trace lower extremity edema. Chronic fatigue and limited activity level secondary to chronic back pain. Significant back pain that was exacerbated after a fall in January 2018. Previously HPI. Recently evaluated in ER, [place] due to increased weight, lower ext edema. Continues to be on high-dose spironolactone 50 mg twice daily, which on previous encounter I decreased to 25 mg twice daily. Sleeps 8-10 hours at night time however he takes at least 1 or 2 naps during the day it 1 h our each. Has history of severe mitral regurgitation, had 2 mitral clips deployed on August of 2016 du e to severe mitral regurgitation. Has been following up with Cardiology in [facility] for aortic valve stenosis. Had BIV ICD implantation for ischemic cardiomyopathy prior. Past medical history, SH, FH, and medications were reviewed in the chart. Medications: Outpatient Encounter Medications as of 11/08/2019 Medication Sig Dispense Refill amLODIPine (NORVASC) 5 mg tablet Take 5 mg by mouth. baclofen (LIORESAL) 10 mg tablet Take 10 mg by mouth Twice daily as needed. Blood Glucose Monitoring Suppl (BLOOD GLUCOSE MONITOR SYSTEM) w/Device KIT by Lolis vasquez. carvedilol (COREG) 25 mg tablet Take 1 tablet by mouth 2 times daily (with breakfast & dinner). 180 tablet 3 furosemide (LASIX) 20 mg tablet Take 20 mg by mouth 2 times daily. gabapentin (NEURONTIN) 300 mg capsule Take 300 mg by mouth 3 times daily. hydrALAZINE (APRESOLINE) 50 MG tablet Take 1 tablet by mouth 2 times daily. 180 tablet 3 HYDROcodone-acetaminophen (NORCO) 7.5-325 mg per tablet Take 1 tablet by mouth every 6 hours as needed for Pain. ibuprofen (ADVIL,MOTRIN) 600 MG tablet Take 600 mg by mouth every 6 hours as needed for Pain. insulin glargine (LANTUS) 100 units/mL injection (vial) Inject 18 Units under the skin. insulin lispro (HUMALOG KWIKPEN) 100 units/mL injection (pen) Inject 7 Units into the s kin 3 (three) times daily before meals. lisinopril (PRINIVIL, ZESTRIL) 20 mg tablet Take 1 tablet by mouth 2 times daily. 180 t ablet 3 nitroglycerin (NITROSTAT) 0.[address] 0.4 mg under the tongue every 5 minute s as needed for Chest pain. ONE TOUCH ULTRA TEST strip 0 potassium chloride (KLOR-CON) 10 MEQ ER tablet Take 1 tablet by mouth daily as needed. Take with Torsemide only as needed. spironolactone (ALDACTONE) 50 mg tablet Take 50 mg by mouth Daily. torsemide (DEMADEX) 20 mg tablet Take 1 tablet by mouth daily as needed. traZODone (DESYREL) 150 MG tablet Take 150 mg by mouth nightly. VENLAFAXINE HCL PO Take 150 mg by mouth Daily. No facility-administered encounter medications on file as of 11/08/2019. Allergies No Known Allergies REVIEW OF SYSTEMS: Constitutional: Positive for chronic fatigue weight has been stable. HEENT: Negative for nosebleeds, ear discharge, nasal congestion or soar throat. Eyes: Wears glasses, redness, or secretion. Respiratory: Negative for cough, sputum production, hemoptysis, wheezing. Cardiovascular: As HPI. Gastrointestinal: Negative for nausea, vomiting, diarrhea, abdominal pain and blood in stoo l. Genitourinary: Negative for dysuria or hematuria. Musculoskeletal: Chronic arthritic and back pain. Skin: Negative for rash. Neurological: Negative for dizziness. No numbness. No recent falls. No slurred speech. Hematological: No significant bruising. Psychiatric/Behavioral: No depression or anxiety. PHYSICAL EXAM Vital Signs: BP 128/64 | Pulse 67 | Ht 1.854 m (6' 1") | Wt 76.7 kg (169 lb) | SpO2 94% | BMI 22.30 kg/m GENERAL APPEARANCE: Alert, oriented, cooperative, no distress, appears stated age. HEENT: Extraocular movements were intact. No jaundice. Pupiles round and reactive. NECK: No JVD, lymphadenopathy. Carotid upstrokes normal. No carotid bruit heard. CARDIAC: Regular rhythm and rate. Systolic murmur in the right upper and left lower nj al border. CHEST: Normal bilateral symmetrical chest excursion.ackles or wheezing. No evidence of dull ness. ABDOMEN: Soft.No tenderness or guarding. No palpable organs. Active bowel sounds. EXTREMITIES: No lower extremities edema, cyanosis or clubbing. NEURO: Alert and oriented times three with no focal deficit. Cranial nerves are grossly no rmal. SKIN: Warm and dry. No rash. Psych: Normal affect and mood. DATA 04/19/2019 Sodium 127, potassium 4.9, chloride 94, bicarb 25, BUN 14, creatinine 0.91. AST 19, ALT 16 , alk phos 141. GGT 297. Magnesium 1.8, TSH 5.00. WBC 6.7, hemoglobin 11.7, platelets 179 . 01/30/2019 Sodium 133, potassium 5.6, chloride 97, bicarb 23, BUN 49, creatinine 1.71, GFR 39. AST 22 , ALT 22 alk phos 120. WBC 8.8, hemoglobin 10.7, platelets 183. Lab Results Component Value Date/Time NA 135 (L) 04/18/2018 03:42 PM NA 135 (L) 03/24/2011 08:28 AM NA 137 03/16/2011 08:51 AM K 3.9 04/18/2018 03:42 PM K 4.0 03/24/2011 08:28 AM K 3.0 (L) 03/16/2011 08:51 AM CO2 25 04/18/2018 03:42 PM CO2 27 03/24/2011 08:28 AM CO2 27 03/16/2011 08:51 AM BUN 16 04/18/2018 03:42 PM BUN 7 03/24/2011 08:28 AM BUN 14 03/16/2011 08:51 AM CREA 0.96 04/18/2018 03:42 PM CREA 0.86 03/24/2011 08:28 AM CREA 0.67 03/16/2011 08:51 AM CALCIUM 8.7 04/18/2018 03:42 PM CALCIUM 9.0 03/24/2011 08:28 AM CALCIUM 8.2 (L) 03/16/2011 08:51 AM MG 1.5 (L) 03/24/2011 08:28 AM MG 1.2 (L) 03/16/2011 08:51 AM MG 1.3 (L) 03/09/2011 08:29 AM Lab Results Component Value Date/Time WBC 7.0 04/18/2018 03:42 PM WBC 3.4 (L) 03/24/2011 08:28 AM WBC 2.8 (L) 03/16/2011 08:51 AM HGB 11.4 (L) 04/18/2018 03:42 PM HGB 10.7 (L) 03/24/2011 08:28 AM HGB 10.4 (L) 03/16/2011 08:51 AM HCT 33.8 (L) 04/18/2018 03:42 PM HCT 31.8 (L) 03/24/2011 08:28 AM HCT 30.0 (L) 03/16/2011 08:51 AM MCV 101.8 (H) 04/18/2018 03:42 PM MCV 103.0 (H) 03/24/2011 08:28 AM MCV 101.3 (H) 03/16/2011 08:51 AM Lab Results Component Value Date ALT 22 04/18/2018 ALT 14 03/24/2011 EC11/08/2019 Ordered and reviewed by myself showed atrial paced and ventricular paced rhythm. Right bundle block morphology consistent with biventricular LV pacemaker Last Echo: 10/13/17 LV is normal in size with moderately impaired systolic function EF 35-40%. Severely enlarge d RV with impaired systolic function. Calcified aortic valve with moderate to severe stenosis. Mitral clip in place with mild flower nosis and moderate regurgitation. Patent mitral clip puncture with bidirectional flow. 01/31/2008. EF 30-35%, s/p BiVICD 09/14/16. MERA- EF 45% 09/15/16. TTE- EF 25% 03/2017. EF 35-40% 10/13/17. EF 35-40% ICD implantation 2004, replaced 2009. Replaced 2016. Interrogated 12/06/2018 4y, 4 m, RA 98%, RV 99%. Last Stress test: Last Cath: Last US carotid: 1988.3v CABG (BROWN-LAD, SVG-diag, SVG-RPDA) 2007. reop CABG (SVG-OM1 and 2, SVG-RPDA) ASSESSMENT: Patient is 79 y.o. 1. Chronic systolic decompensated heart failure, HFrEF NYH class III, stage C. Appears to be euvolemic today. 2. Hypertension. 3. Chronic kidney disease stage II. 4. Ischemic cardiomyopathy, with BiV ICD. 5. S/P 2 mitral clips due to severe mitral regurgitation, most recent echo shows moderate r egurgitation. 6. Moderate to severe aortic stenosis. 7. Severe pulmonary hypertension. 8. Type II diabetes mellitus. 9. History of atrial flutter previous ablation in 2004. 10. History of anemia. 11. Obstructive sleep apnea. 12. 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 Appears euvolemic. Repeat CBC and CMP is ordered Again note this patient is taking torsemide and furosemide. We will stop furosemide and start taking torsemide on daily basis. Continue with carvedilol 25 mg bid, lisinopril 20 mg bid. We will decrease spironolactone 50 mg mg once a day. Continue monitoring sodium and potassium levels. Hydralazine 50 mg twice daily. Previously stopped amlodipine. Anemia of chronic disease of unknown etiology, chemotherapy was advised however patient dec lined. We will schedule his ICD interrogation. Repeat echocardiogram to evaluate aortic stenosis. We will continue monitoring weight, I reviewed salt and fluid restrictions. Further recommendations to follow. *This report has been prepared using a voice recognition system. The report was reviewed fo r accuracy, however, sound-alike word errors, addition and/or deletions may occur. If there is any question about this report please contact me. Des Orellana MD, MPH documented in this encounter Plan of Treatment +--------+ + + + + | Date | Type | Specialty | Care Team | Description | +--------+ + + + + | 12/18/ | Procedure | Cardiology | | | 2019 | visit | | | | +--------+ + + + + | 03/20/ | Office | Cardiology | Des Orellana, | | 2019 | Visit | | MD Aamir YOON | | | | | | [place] | | | | | | [id number] | | | | | | | | +--------+ + + + + + + +--------+ + + | Name | Type | Priori | Associated Diagnoses | Order Schedule | | | | ty | | | + + +--------+ + + | ECHO Complete | Echocardiog | Routin | Ischemic | Expected: | | | kathleen | e | cardiomyopathy | 11/08/2019, Expires: | | | | | Non-rheumatic mitral | 11/07/2020 | | | | | regurgitation | | | | | | Chronic diastolic | | | | | | congestive heart | | | | | | failure (HCC) | | | | | | 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 | | | | | | angina pectoris | | | | | | ([facility]) Biventricular | | | | | | ICD (implantable | | | | | | cardioverter-defibri | | | | | | llator) in place | | | | | | S/P mitral valve | | | | | | clip implantation | | + + +--------+ + + | Basic Metabolic | Lab | Routin | Ischemic | 1 Occurrences | | Panel | | e | cardiomyopathy | starting 11/08/2019 | | | | | Non-rheumatic mitral | until 11/07/2020 | | | | | regurgitation | | | | | | Chronic diastolic | | | | | | congestive heart | | | | | | failure (HCC) | | | | | | 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 | | | | | | angina pectoris | | | | | | (HCC) Biventricular | | | | | | ICD (implantable | | | | | | cardioverter-defibri | | | | | | llator) in place | | | | | | S/P mitral valve | | | | | | clip implantation | | + + +--------+ + + documented as of this encounter Procedures + +--------+ + + + | Procedure Name | Priori | Date/Time | Associated Diagnosis | Comments | | | ty | | | | + +--------+ + + + | ECG 12 LEAD | Routin | 11/08/2019 | Ischemic | Results for this | | | e | 3:16 PM | cardiomyopathy | procedure are in the | | | | PDT | | results section. | + +--------+ + + + documented in this encounter Results ECG 12 lead (11/08/2019 3:16 PM PDT) + + + + + + | Component | Value | Ref Range | Performed | Pathologist | | | | | At | Signature | + + + + + + | VENTRICULAR | 74 | BPM | [facility] | | | RATE EKG | | | | | + + + + + + | ATRIAL RATE | 74 | BPM | [facility] | | + + + + + + | QRS | 146 | ms | [facility] | | | DURATION | | | | | + + + + + + | Q-T | 450 | ms | [facility] | | | INTERVAL | | | | | + + + + + + | Q-T | 499 | ms | [facility] | | | INTERVAL | | | | | | (CORRECTED) | | | | | + + + + + + | QRS AXIS | -100 | degrees | [facility] | | + + + + + + | T AXIS | 47 | degrees | [facility] | | + + + + + + | INTERPRETAT | Atrial-paced rhythm | | [facility] | | | ION TEXT | Ventricular-paced | | | | | | rhythmAbnormal | | | | | | ECGConfirmed by JANA | | | | | | DES VELA ([id number]) on | | | | | | 11/09/2019 3:52:19 PM | | | | + + + + + + + + | Specimen | + + | | + + + + + | Narrative | Performed At | + + + | | | + + + + +---------+ + + | Performing | Address | City/State/Zipcode | Phone Number | | Organization | | | | + +---------+ + + | [facility] | | | | + +---------+ + + documented in this encounter Visit Diagnoses + + | Diagnosis | + + | Ischemic cardiomyopathy - Primary Other specified forms of chronic ischemic heart | | disease | + + | Non-rheumatic mitral regurgitation | + + | Chronic diastolic congestive heart failure (HCC) Chronic diastolic heart failure | + + | 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
--- OUTSIDE RECORDS SUMMARY | ~2019-11-13 | XMS | Encounter Summary ---
Demographics + + + | Address | [address] | | | [place] [address] | + + + | Home Phone | | + + + | Preferred Language | Unknown | + + + | Marital Status | | + + + | [employer] Affiliation | EPI | + + + | Race | White | + + + | Ethnic Group | Not or | + + + Author + + + | Author | [facility] | + + + | Organization | [facility] | + + + | Address | Unknown | + + + | Phone | Unavailable | + + + Support + + +---------+ + | Name | Relationship | Address | Phone | + + +---------+ + | Katherine Daniel | ECON | Unknown | | + + +---------+ + Care Team Providers + +------+ + | Care Trailhead Construction Worker Name | Role | Phone | + +------+ + PCP | Unavailable | + +------+ + Encounter Details +--------+ + + + + | Date | Type | Department | Care Team | Description | +--------+ + + + + | 05/03/ | Office | [facility] | Note, Outpatient | Progress Note | | 2000 | Visit-Trans | MEDICINE | Clinic | | | | cribed | | | | +--------+ + + [...] documented as of this encounter Progress Notes Interface, Warrant Clerk In - 03/30/2006 3:00 AM PDTCLINIC DATE: 05/03/2001 OTOLARYNGOLOGY CLINIC SUBJECTIVE: Mr. Daniel returns for 1 month followup visit, he is doing well and has no complaints. He did see some sort of holistic medicine practitioner in [place] who did a test called amass test, this apparently was a blood test and is billed as a test for cancer which came back negative. I am not sure of the significance of that result. PHYSICAL EXAMINATION: GENERAL: Nevertheless, he looks well. VITAL SIGNS: His weight is 182 pounds which is up 1 pound from his last visit. HEENT: Intraorally, no mucosal lesions are seen. NECK: Well healed. There is no adenopathy palpable on either side of the neck. PROCEDURE: I sprayed his nose using phenylephrine and lidocaine and examined it using a flexible scope. Nasal cavity, nasopharynx, oropharynx, hypopharynx, and larynx were all visualized; there is no evidence of any tumors seen. 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 He is going to return for a followup visit in 1 month. Edis Hatch M.D. Ceramic Engineering Professor of Otolaryngology [facility] / [id number] / [id number] / [id number] / cc: Anand Lackey M.D. [address] [place] [address] [id number] signed by Interface, Warrant Clerk In at 03/30/2006 3:00 AM PDTdoc umented in this encounter Plan of Treatment Not on filedocumented as of this encounter Visit Diagnoses Not on filedocumented in this encounter"
--- OUTSIDE RECORDS SUMMARY | ~2019-11-13 | XMS | Encounter Summary ---
Demographics + + + | Address | [address] | | | [place] [address] | + + + | Home Phone | | + + + | Preferred Language | Unknown | + + + | Marital Status | | + + + | Mu-Ism Affiliation | 1069 | + + + | Race | Unknown | + + + | Ethnic Group | Unknown | + + + Author + + + | Author | [facility] | | | and [place] | + + + | Organization | [facility] | | | and [place] | + + + | Address | Unknown | + + + | Phone | Unavailable | + + + Support + + + + + | Name | Relationship | Address | Phone | + + + + + | Daniel Daniel | ECON | [place] | | | | | [address] | | + + + + + | Katherine Daniel | ECON | [address] | | | | | [place] | | | | | [phone] | | + + + + + | Katherine Daniel | ECON | [address] | | | | | [place] | | | | | [phone] | | + + + + + Care Team Providers + +------+ + | Care Pilot Supervisor Name | Role | Phone | + +------+ + PCP | Unavailable | + +------+ + Encounter Details +--------+ + + + + | Date | Type | Department | Care Team | Description | +--------+ + + + + | 01/08/ | Hospital | [facility] | | | | 2010 | Encounter | [facility] | | | | | | [address] | | | | | | [place] [id number] | | | | | | [phone] | | | +--------+ + + + [...] documented as of this encounter Progress Notes Kendra Nicolas MD - 01/08/2011 3:43 PM PDTDATE: 01/08/[address] SIMULATION NOTE DIAGNOSIS: Squamous cell carcinoma, base of tongue, 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 HISTORY OF PRESENT ILLNESS: Mr. Daniel is known to our clinic and most recently was seen by Dr. Bryant Navas on 01/01/2011 for evaluation. Please refer to Dr. Navas's visit note for details regarding the patient's history and Dr. Navas 's recommendations and plan. Mr. Daniel returns today for scheduled set-up simulation to be followed by PET-CT scan to assist in treatment design. Informed consent has been obtained. The patient was set up using his prior tattoos from his previous radiation. A custom Aquap last mask was designed and fitted. A preliminary isocenter was set up and then orthogonal f ilms were obtained and approved. Mr. Daniel will next undergo PET CT with IV contrast for lila gnostic restaging and treatment planning purposes as ordered by Dr. Navas. Today's procedures were tolerated well and without incident. Dosimetry work will follow, a nd the patient will return to start his radiotherapy. DICTATED BY: Kendra Nicolas MD Radiation Oncology JOB #: [id number] EXT JOB #:[id number] EDITED: 01/09/2011 15:58 cc: Bryant Navas MD <Electronically Signed by Kendra Nicolas MD> 01/09/11 1920 documented in this encounter Plan of Treatment [...] | 2019 | Visit | | MD [address] | | | | | | [place] | | | | | | [id number] | | | | | | | | +--------+ + + + + documented as of this encounter Procedures + +--------+ + + + | Procedure Name | Priori | Date/Time | Associated Diagnosis | Comments | | | ty | | | | + +--------+ + + + | PET CT SKULL BASE TO | | 01/08/2011 | | Results for this | | MID THIGH | | 3:43 PM | | procedure are in the | | | | PDT | | results section. | + +--------+ + + + documented in this encounter Results PET CT Skull Base To Mid Thigh (01/08/2011 3:43 PM PDT) + + | Specimen | + + | | + + + + + | Narrative | Performed At | + + + | [facility] Diagnostic Imaging Department | [facility] | | [address] | [facility] | | WHOLE BODY F-18 FDG | DIA IMG | | PET-NONCONTRAST CT FUSION, 01/08/2011 CLINICAL HISTORY: SQUAMOUS | | | CELL CARCINOMA OF THE TONGUE, FOR XRT TREATMENT. TECHNIQUE: | | | Whole body FDG PET / noncontrast CT images were obtained, from the | | | base of skull to the m idthigh level. Images were reviewed in | | | multimodality mode with image fusion, and attenuation correct ed PET | | | data. DOSE: 10.8 mCi F18 - FDG. FINDINGS: There is a | | | hypermetabolic mass at the right base of the tongue, consistent with | | | the clinic al history. This demonstrates hypermetabolism with SUV max | | | = 9.1. There is a lesser degree of hyperme tabolism identified with | | | a focus within the deep lobe of the right parotid gland. This measures | | | SUV m ax = 4.3 and is suspicious for franki disease. There is a third | | | lesion at the base of the neck in the right supraclavicular fossa. | | | This node measures 26 mm in long axis and SUV max = 7.4 in | | | hypermetaboli sm and represents a metastatic node to the base of | | | neck. No other hypermetabolic nodes are identified within the neck. | | | No abnormal hypermetabolism is seen within the chest. No | | | suspicious pulmonary lesions are identified. The patient is status | | | post median sternotomy and permanent pacer placement. There is a chemo | | | infusio n port in place with the catheter tip in the SVC. No | | | abnormal activity is seen within the abdomen or pelvis. There is | | | normal GI and tract activity. No abnormal bony uptake is | | | identified. IMPRESSION: 1. HYPERMETABOLIC RIGHT BASE OF TONGUE | | | MASS CONSISTENT WITH KNOWN SQUAMOUS CELL CARCINOMA. 2. METASTATIC | | | NODE TO THE RIGHT SUPRACLAVICULAR FOSSA. 3. 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 Dictated Date/Time: | | | 01/10/2011 15:08 Transcribed Date/Time: 01/10/2011 15:37 | | | Data Assistant: <Electronically Signed by Girish Dinero, | | | > 01/10/11 1747 | | + + + + + | Procedure Note | + + | Derrick, Rad Conversion - 08/04/2013 3:22 PM [facility] | | Diagnostic Imaging Department [address] [place] [address] | | WHOLE BODY F-18 FDG PET-NONCONTRAST CT FUSION, | | 01/08/2011 CLINICAL HISTORY: SQUAMOUS CELL CARCINOMA OF THE TONGUE, FOR XRT TREATMENT. | | TECHNIQUE: Whole body FDG PET / noncontrast CT images were obtained, from the base of | | skull to the midthigh level. Images were reviewed in multimodality mode with image | | fusion, and attenuation corrected PET data. DOSE: 10.8 mCi F18 - FDG. FINDINGS: There | | is a hypermetabolic mass at the right base of the tongue, consistent with the clinical | | history. This demonstrates hypermetabolism with SUV max = 9.1. There is a lesser degree | | of hypermetabolism identified with a focus within the deep lobe of the right parotid | | gland. This measures SUV max = 4.3 and is suspicious for franki disease. There is a third | | lesion at the base of the neck in the right supraclavicular fossa. This node measures | | 26 mm in long axis and SUV max = 7.4 in hypermetabolism and represents a metastatic node | | to the base of neck. No other hypermetabolic nodes are identified within the neck. No | | abnormal hypermetabolism is seen within the chest. No suspicious pulmonary lesions are | | identified. The patient is status post median sternotomy and permanent pacer placement. | | There is a chemo infusion port in place with the catheter tip in the SVC. No abnormal | | activity is seen within the abdomen or pelvis. There is normal GI and tract activity. | | No abnormal bony uptake is identified. IMPRESSION: 1. HYPERMETABOLIC RIGHT BASE OF | | TONGUE MASS CONSISTENT WITH KNOWN SQUAMOUS CELL CARCINOMA. 2. METASTATIC NODE TO THE | | RIGHT SUPRACLAVICULAR FOSSA. 3. 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 Dictated | | Date/Time: 01/10/2011 15:08Transcribed Date/Time: 01/10/2011 15:37Transcriptionist: | | <Electronically Signed by Girish Dinero MD> 01/10/11 2737 | |No abnormal hypermetabolism is seen within the chest. No suspicious pulmonary lesions are i dentified. | | The patient is status post median sternotomy and permanent pacer placement. There is a ethel mo infusio | |n port in place with the catheter tip in the SVC. | | | |No abnormal activity is seen within the abdomen or pelvis. There is normal GI and tract activity. | | | | | |No abnormal bony uptake is identified. | | | |IMPRESSION: | |1. HYPERMETABOLIC RIGHT BASE OF TONGUE MASS CONSISTENT WITH KNOWN SQUAMOUS CELL CARCINOMA. | | | |2. METASTATIC NODE TO THE RIGHT SUPRACLAVICULAR FOSSA. | | | |3. INTERMEDIATE LEVEL HYPERMETABOLISM WITHIN THE DEEP RIGHT LOBE OF THE PAROTID GLAND LIKEL Y REPRESEN | |TING LOCAL FRANKI EXTENSION. | | | |Dictated Date/Time: 01/10/2011 15:08 | |Transcribed Date/Time: 01/10/2011 15:37 | |Data Assistant: | |<Electronically Signed by Girish Dinero MD> 01/10/11 1747 | + + + +---------+ + + | Performing | Address | City/State/Zipcode | Phone Number | | Organization | | | | + +---------+ + + | [place] | | | | | [place] | | | | + +---------+ + + documented in this encounter Visit Diagnoses Not on filedocumented in this encounter"
--- OUTSIDE RECORDS SUMMARY | ~2019-11-13 | XMS | Encounter Summary ---
Demographics + + + | Address | [address] | | | [place] [address] | + + + | Home Phone | | + + + | Preferred Language | Unknown | + + + | Marital Status | | + + + | Oriental Orthodox Affiliation | EPI | + + + | Race | White | + + + | Ethnic Group | Not or | + + + Author + + + | Organization | Unknown | + + + | Address | Unknown | + + + | Phone | Unavailable | + + + Support + + +---------+ + | Name | Relationship | Address | Phone | + + +---------+ + | Katherine Daniel | ECON | Unknown | | + + +---------+ + Care Team Providers + +------+ + | Care Customs And Border Protection Officer Name | Role | Phone | + +------+ + PCP | Unavailable | + +------+ + Encounter Details +--------+ + + + + | Date | Type | Department | Care Team | Description | +--------+ + + + + | 03/14/ | Office | | Note, Outpatient | Progress Note | | 2001 | Visit-Trans | | Clinic | | | | cribed [...] as of this encounter Progress Notes Interface, 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 Daniel returns for a followup visit. He is doing well and has no complaints. PHYSICAL EXAMINATION VITAL SIGNS: Weight 185 pounds which was up 1 pound from his last visit. NECK: Well healed. There was no adenopathy palpable on either side of the neck. HEENT: Intraorally, no mucosal lesions were seen. I sprayed his nose using phenylephrine and lidocaine and examined using a flexible scope. The nasal cavity, nasopharynx, oropharynx, hypopharynx, and larynx were all well visualized, and there was no evidence of any disease. IMPRESSION AND PLAN: Doing well now 15 months out from treatment of an unknown primary head and neck carcinoma. He is going to return for a followup visit in 2 months. Edis Hatch M.D. [facility] / [id number] / [id number] / [id number] / Tdocumented in this encounter Plan of Treatment Not on filedocumented as of this encounter Visit Diagnoses Not on filedocumented in this encounter"
--- OUTSIDE RECORDS SUMMARY | ~2019-11-13 | XMS | Encounter Summary ---
Demographics + + + | Address | [address] | | | [place] [address] | + + + | Home Phone | | + + + | Preferred Language | Unknown | + + + | Marital Status | | + + + | Mormon Affiliation | 1069 | + + + | Race | Unknown | + + + | Ethnic Group | Unknown | + + + Author + + + | Author | [facility] | | | and [place] | + + + | Organization | [facility] | | | and [place] | + + + | Address | Unknown | + + + | Phone | Unavailable | + + + Support + + + + + | Name | Relationship | Address | Phone | + + + + + | Daniel Daniel | ECON | [place] | | | | | [phone] | | + + + + + | Katherine Daniel | ECON | [address] | | | | | [place] | | | | | [phone] | | + + + + + | Katherine Daniel | ECON | [address] | | | | | [place] | | | | | [phone] | | + + + + + Care Team Providers + +------+ + | Care Process Manufacturing Engineer Name | Role | Phone | + +------+ + PCP | Unavailable | + +------+ + Encounter Details +--------+ + + + + | Date | Type | Department | Care Team | Description | +--------+ + + + + | 02/23/ | Hospital | [facility] | Cali Alatorre, | | | 2010 - | Encounter | [facility] | [place] [address] | | | | | [place] [address] | [place] | | | 02/[birth year]/ | | [place] | [address] | | | 2010 | | [address] | [phone] | | | | | [phone] | | | +--------+ + + + [...] documented as of this encounter Progress Notes Rodger Gu MD - 01/26/2011 1:54 AM PDTPROGRESS NOTE: 02/23/2011 IDENTIFYING STATEMENT: Papo Daniel (Fritz) is a 70 year old man from [facility] on with recurrent squamous cell carcinoma [...] origin. 3. Initial management was at the [facility] in [place] (also known as the [facility] in [place], [place]). Treatments included intravenous high-dose vitamin C. 4. On June 06, 2002, he developed recurrent palpable lymphadenopathy in the left side of the neck that was biopsied and confirmed recurrence of squamous cell carcinoma. 5. Between 17 08 and 2003, he received intravenous chemotherapy at the [facility] in [place], [place], including insulin potentiation therapy. 6. He traveled to the [facility] where he received additional insulin potentiation therapy and intralesional injection of chemotherapy between 2003 and 2004. 7. He then cross ed over to naturopathic treatment following the Oliver regimen. 8. In December 2007, he develo ped progressive submental lymphadenopathy that was confirmed to be malignant by CT PET scan February 23, 2009. 9. On March 21, 2009, he began therapy the [facility] with sodium phenylbutyrat e, Rapamune, and oral Xeloda chemotherapy. He continued on the treatment plan with vari ous doses and schedules with stable submental lymphadenopathy until September 25, 2009. 10. He cros sed over to Vectibix chemotherapy September 25, 2009 through January 29, 2010. Repeat CT scan on February 07, 2010 at [facility] in [place], [place] demonstrated progress ion of disease with increase in size of the submental lymph node, previously 18 x 18 mm and subsequently 30 mm x 27 mm. There were smaller satellite lesions surrounding the submental metast ases, including a 16 mm satellite lesion just to the right of the dominant mass and a 14 x 13 mm satellite lesion just to the left of the dominant mass. In addition, there was new right cervi kia lymphadenopathy in the sternocleidomastoid region. 11. He was then lost to medical o ncology follow-up and was treating his progressive submental malignant lymphadenopathy with application of ludin packs. 12. In July 2010, he had erosion of the submental lymphadenopathy through the skin. O n August 08, 2010, he had a consultation with Dr. Lennon at the [facility] in [place], [place], who recommended palliative radiation therapy. He [...] to see Dr. Silas German at the [facility] in [place], [place], who noted significant decrease in the size of the submental mass. He continued on a lternative medical regimens until January 01, 2011 when he returned to the [facility] in [place], [place] and was evaluated by Dr. Bryant Navas, who not ed multiple palpable bilateral cervical lymph nodes. Dr. Bryant Navas has recommended a mor e definitive combined modality treatment approach to his recurrent head and neck cancer with 7000 centigray given concurrently with systemic chemotherapy. CHIEF COMPLAINT: Rosas returned to the clinic on February 23, 2011 for his fifth consecutiv e week of combined modality therapy for recurrent head and neck cancer. REVIEW OF SYSTEMS: CONSTITUTIONAL: Positive for anorexia, fatigue, and weight loss. Denies nausea, vomiting , high fever, shaking chills, or night sweats. EAR, NOSE, MOUTH, THROAT: Positive for progressive odynophagia with less dysphagia and no tinnitus. CARDIOVASCULAR: Denies shortness of breath, dyspnea on exertion, chest pain, palpitations , or orthopnea. RESPIRATORY: Denies cough, hemoptysis, or sputum production. GASTROINTESTINAL: Denies ab dominal pain, constipation, diarrhea, melena, or bright red blood per rectum. GENITOURINARY: Denies hematuria or dysuria. MUSCULOSKELETAL: Denies joint pain and tenderness. NEUROLOGIC: Denies headache, visual changes, or numbness/tingling of the extremities. END OCRINE: Denies peripheral edema or heat/cold intolerance. HEMATOLOGIC: Denies spontaneous bruising or bleeding. PAST MEDICAL HISTORY, FAMILY HISTORY, SOCIAL HISTORY, HABITS: Please see the full dictate d note dated January 20, 2011, which is reviewed and unchanged. ROUTINE MEDICATIONS: Caphosol oral solution, one unit [...] known drug allergies. PHYSICAL EXAMINATION: Weight is 80.4 kg, down .3 kg. Temperature 36.5 degrees Celsius, b lood pressure 132/64, pulse 60. Karnofsky Performance Status is 70%. Pain is 6 out of 10 to 8 out of 10 due to odynophagia. EYES: Conjunctivae clear. Sclerae anicteric. ENMT: Slightly more facial edema today. Mild posterior pharyngeal erythema. CARDIOVASCULAR: Regular rate and rhythm. Normal S1 and S2 without murmur, gallop, or rub . LUNGS: Good air movement bilaterally. No rhonchi, wheeze, or rales. CHEST: Right anterior chest AICD is without surrounding tenderness or erythema. LYMPH NODES: No residual cervical lymphadenopathy. SKIN: Increasing dry desquamation of the bilateral neck area, both bilaterally as well as anterior/posterior. EXTREMITIES: No cyanosis, clubbing, or edema. NEUROLOGIC: Alert and oriented times three. Face symmetric. Voice articulate. Station and gait within normal limits. STUDIES: Comprehensive metabolic panel is entirely normal including normal potassium at 4 .3 and normal magnesium at 2.1. Normal creatinine at 0.85. Hemoglobin is 11.8, hematocrit 34.4%, platelet count 109,000, white count 4900. ASSESSMENT: Rosas is becoming progressively symptomatic from odynophagia due to combined modality therapy. He is putting in considerable effort to maintain his nutrition and keep his weight up. PLAN: Proceed today with his fifth consecutive week of combined modality therapy with ext ernal beam radiation therapy given concurrently with cisplatin at 30 mg/m2. In order to pa lliate symptoms of odynophagia due to combined modality therapy, I prescribed oxycodone 15 mg IR, dispense no. 100, one tablet every four hours as needed for pain. I warned Pillai th at using oxycodone regularly will cause constipation and he does have access to laxatives a nd stool softeners at home, primarily relying on a naturopathic regimen of prunes. PROCEDURE: Peripheral IV was established and he received 16 mg of intravenous Zofran, 15 m g of oral oxycodone, 150 mg of intravenous Emend, 1000 cc of normal saline containing 20 mE q of potassium chloride and one gram magnesium sulfate intravenously over two hours. He th en received 60 mg of intravenous cisplatin in 500 cc of normal saline over one hour and six minutes. He then received another 500 cc of normal saline intravenously over one hour. Renee yan tolerated his chemotherapy without adverse effects. CC: Dr. Ion Murphy <Electronically Signed by Rogder Gu MD> 02/25/11 1304 Cali Alatorre MD - 01/26/2011 1:54 AM PDTDATE: 02/23/2011 RADIATION ONCOLOGY ON-TREATMENT VISIT NOTE DIAGNOSIS: Base of tongue squamous cell carcinoma. WEEKLY ON-TREATMENT NOTE: Mr. David Daniel is a 70-year-old gentleman with a history of base of tongue squamous cell carcinoma for which he is getting intensity modulated radiatio n therapy. The patient has received a total dose of 4452 cGy of a planned 6996 cGy to the b ase of tongue region. The patient states that he has noted increasing fatigue, increasing d ysphagia and odynphagia as well as increasing hoarseness. He states that he has tried saltw ater rinses which, while helps him clear his thickened secretions, irritates the mouth jayla ewhat. Patient states he has lost 1 pound over the last 1 week. PHYSICAL EXAMINATION VITAL SIGNS: Blood pressure 132/64, pulse 60, weight 80.4 kg, temperature 36.5 degrees Ce lsius. GENERAL: The patient is awake, alert and oriented, no apparent distress. HEAD AND NECK: There is no cervical or supraclavicular lymphadenopathy. The patient does have postsurgical changes as well as hyperpigmentation in the treatment dewitt. There is no areas of desquamation at this point. Oral mucosa is moist and pink. The patient does have mucositis noted at the area of the soft palate. ASSESSMENT AND PLAN: Mr. David Daniel is currently undergoing intensive modulated radiat ion therapy treatment for treatment of his base of tongue squamous cell carcinoma. The travis ent's side effects are starting to accumulate and does have increased mucositis as well as increased thickened secretions. We did instruct the patient to continue with the saltwater rinses but to add baking soda along with it and to do that several times a day to help jose r out the thickened secretions. At this time, we will continue to treat him as currently p rescribed. IMAGE-GUIDED RADIATION THERAPY: I was called to the treatment machine on 2010 to r eview the on-board imaging cone-beam CT scan for Mr. Daniel's treatments. I have compared his imaging to planning digitally reconstructive images and once proper positioning had been v erified, the patient's treatment then did proceed. DICTATED BY: Cali Alatorre MD Radiation Oncology JOB #: [id number] EXT JOB #:[id number] <Electronicall y Signed by Cali Alatorre MD> 02/27/11 1705 Rodger Gu MD - 01/26/2011 1:54 AM PDTPROGRESS NOTE: 02/16/2011 IDENTIFYING STATEMENT: Papo Daniel (Fritz) is a 70 year old man from [facility] on with recurrent squamous cell carcinoma [...] origin. 3. Initial management was at the [facility] in [place] (also known as the [facility] in [place], [place]). Treatments included intravenous high-dose vitamin C. 4. On June 06, 2002, he developed recurrent palpable lymphadenopathy in the left side of the neck that was biopsied and confirmed recurrence of squamous cell carcinoma. 5. Between 17 08 and 2003, he received intravenous chemotherapy at the [facility] in [place], [place], including insulin potentiation therapy. 6. He traveled to the [facility] where he received additional insulin potentiation therapy and intralesional injection of chemotherapy between 2003 and 2004. 7. He then cross ed over to naturopathic treatment following the Oliver regimen. 8. In December 2007, he develo ped progressive submental lymphadenopathy that was confirmed to be malignant by CT PET scan February 23, 2009. 9. On March 21, 2009, he began therapy the [facility] with sodium phenylbutyrat e, Rapamune, and oral Xeloda chemotherapy. He continued on the treatment plan with vari ous doses and schedules with stable submental lymphadenopathy until September 25, 2009. 10. He cros sed over to Vectibix chemotherapy September 25, 2009 through January 29, 2010. Repeat CT scan on February 07, 2010 at [facility] in [place], [place] demonstrated progress ion of disease with increase in size of the submental lymph node, previously 18 x 18 mm and subsequently 30 mm x 27 mm. There were smaller satellite lesions surrounding the submental metast ases, including a 16 mm satellite lesion just to the right of the dominant mass and a 14 x 13 mm satellite lesion just to the left of the dominant mass. In addition, there was new right cervi kia lymphadenopathy in the sternocleidomastoid region. 11. He was then lost to medical o ncology follow-up and was treating his progressive submental malignant lymphadenopathy with application of ludin packs. 12. In July 2010, he had erosion of the submental lymphadenopathy through the skin. O n August 08, 2010, he had a consultation with Dr. Lennon at the [facility] in [place], [place], who recommended palliative radiation therapy. He [...] to see Dr. Silas German at the [facility] in [place], [place], who noted significant decrease in the size of the submental mass. He continued on a lternative medical regimens until January 01, 2011 when he returned to the [facility] in [place], [place] and was evaluated by Dr. Bryant Navas, who not ed multiple palpable bilateral cervical lymph nodes. Dr. Bryant Navas has recommended a mor e definitive combined modality treatment approach to his recurrent head and neck cancer with 7000 centigray given concurrently with systemic chemotherapy. CHIEF COMPLAINT: Rosas returned to the clinic on February 16, 2011 with his Katherine for his fourth consecutive week of combined modality therapy for head and neck cancer with exte rnal beam radiation and weekly cisplatin. REVIEW OF SYSTEMS: CONSTITUTIONAL: Positive for fatigue. Denies high fever, shaking chills, anorexia, nause a, vomiting, weight loss, or night sweats. EAR, NOSE, MOUTH, THROAT: He is complaining of tacky saliva causing gagging. He is also having odynophagia. CARDIOVASCULAR: Denies shortness of breath, dyspnea on exertion, chest pain, palpitations , or orthopnea. RESPIRATORY: Denies cough, hemoptysis, or sputum production. GASTROINTESTINAL: Denies ab dominal pain, constipation, diarrhea, melena, or bright red blood per rectum. GENITOURINARY: Denies hematuria or dysuria. MUSCULOSKELETAL: Denies joint pain and tenderness. NEUROLOGIC: Headaches have resolved. ENDOCRINE: Denies peripheral edema or heat/cold intolerance. HEMATOLOGIC: Denies spontan eous bruising or bleeding. DERMATOLOGIC: He is complaining of symptomatic xeroderma in the radiation therapy treatme nt field. PAST MEDICAL HISTORY, FAMILY HISTORY, SOCIAL HISTORY, HABITS: Please see the full dictate d note dated January 20, 2011, which is reviewed and unchanged. ROUTINE MEDICATIONS: Caphosol oral solution, one unit [...] known drug allergies. PHYSICAL EXAMINATION: Weight is 80.7 kg, temperature 36.7 degrees Celsius, blood pressure 142/71, pulse 66. Karnofsky Performance Status is 70%. Saturation of oxygen is 95% on room air. EYES: Some recurrence of epiphora. ENMT: Mild recurrence of facial edema. CARDIOVASCULAR: Regular rate and rhythm. Normal S1 and S2 without murmur, gallop, or rub . LUNGS: Good air movement bilaterally. No rhonchi, wheeze, or rales. CHEST: Right anterior chest AICD is without surrounding tenderness or erythema. LYMPH NODES: Cervical lymphadenopathy is completely resolved. SKIN: There is some dry desquamation in the bilateral neck area and supraclavicular fossa e corresponding to radiation therapy treatment field. EXTREMITIES: No cyanosis, clubbing, or edema. NEUROLOGIC: Alert and oriented times three. Face symmetric. Voice articulate. Station and gait within normal limits. STUDIES: Hemoglobin is 12.8, hematocrit 37.5%, platelet count 118,000, white count 6000. Comprehensive metabolic panel is notable for blood sugar of 159, consistent with his state d history of diabetes. Sodium is slightly low at 129 but is not clinically significant. T he rest of his metabolic panel is normal, including a BUN of 13 and creatinine 0.9. 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 PLAN: Continue with combined modality therapy with external beam radiation therapy, super vised by Dr. Alatorre, and daily cisplatin chemotherapy at 30 mg/m2. Duration of chemotherap y will coincide with the duration of his radiation therapy treatment plan as prescribed by Dr. Alatorre. PROCEDURE: He received 16 mg of oral Zofran, 150 mg of intravenous Emend and 1000 cc of no rmal saline containing 20 mEq of potassium chloride and one gram magnesium sulfate. He rec eived 60 mg of intravenous cisplatin and then another 500 cc of normal saline without adver se effects. cc: Dr. Ion Murphy <Electronically Signed by Rodger Gu MD> 02/19/11 1337 Cali Alatorre MD - 01/26/2011 1:54 AM PDTDATE: 02/16/2011 RADIATION THERAPY ON-TREATMENT VISIT NOTE WEEKLY ON-TREATMENT VISIT NOTE: Mr. 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 The patient has received 3392 cGy of the planned 6996 cGy. The patient did have some swelling of his face following his chemotherapy last week, likely related to the fluids that he got, which has markedly improved, he states that his treatment mask jimenez s fit better. He is starting to get some pain in the back of his throat, which he notices mostly with swallowing. He states that his appetite is down, as well as he has had alterati on of his taste. He does continue to put the moisturizer on several times per day in the ne ck region. PHYSICAL EXAMINATION VITAL SIGNS: Weight is 80.7 kg, which is down from 84 kg last week, blood pressure is 142 /71, pulse of 66, temperature 36.7 degrees Celsius. The patient is awake, alert and oriented. The patient does have some hyperpigmentation o f the bilateral neck in the treatment field. No lymphadenopathy appreciated. Oral mucosa is moist and pink. The patient does have some areas of mucositis in the region of the soft pa late. This does appear to be somewhat progressive since his exam last week. ASSESSMENT: Mr. Daniel is nearing the intermediate point through his combined chemoradiotherapy treatments of his head and neck cancer. The patient is starting to develop mucositis, as we ll as change in appetite. He has lost several pounds over last week, although he wonders if this is related to the extra fluid he retained at the time of our appointment last week. Yaquelin yan, again, did discuss the need to maintain adequate nutrition and hydration, and did again discuss desire for him not to lose weight. He has been given Peyman supplements. I also did recommend that he not put any lotions on his neck prior to his treatments as he had been d oing so to this point, but did instruct him to put the moisturizer on several times per day following his treatment each day. The patient and his did express their understanding . At this time, we will continue to treat him as currently prescribed. The patient is sched uled for his weekly chemotherapy dose today. DICTATED BY: Cali Alatorre MD Radiation Oncology JOB #: [id number] EXT JOB #:[id number] <Electronicall y Signed by Cali Alatorre MD> 02/19/112018 Rodger Gu MD - 01/26/2011 1:54 AM PDTPROGRESS NOTE 02/09/2011 IDENTIFYING STATEMENT: Papo Daniel (Fritz) is a 70 year old man from [facility] on with recurrent squamous cell carcinoma [...] origin. 3. Initial management was at the [facility] in [place] (also known as the [facility] in [place], [place]). Treatments included intravenous high-dose vitamin C. 4. On June 06, 2002, he developed recurrent palpable lymphadenopathy in the left side of the neck that was biopsied and confirmed recurrence of squamous cell carcinoma. 5. Bet 2001 and 2003, he received intravenous chemotherapy at the [facility] in [place], [place], including insulin potentiation therapy. 6. He traveled to the [facility] where he received additional insulin potentiation therapy and intralesional injection of chemotherapy between 2003 and 2004. 7. He then cross ed over to naturopathic treatment following the Oliver regimen. 8. In December 2007, he develo ped progressive submental lymphadenopathy that was confirmed to be malignant by CT PET scan February 23, 2009. 9. On March 21, 2009, he began therapy the [facility] with sodium phenylbutyrat e, Rapamune, and oral Xeloda chemotherapy. He continued on the treatment plan with vari ous doses and schedules with stable submental lymphadenopathy until September 25, 2009. 10. He crossed over to Vectibix chemotherapy September 25, 2009 through January 29, 2010. Repeat CT sca n on February 07, 2010 at [facility] in [place], [place] demonstrated progression of disease with increase in size of the submental lymph node, previously 18 x 18 mm and subsequently 30 mm x 27 mm. There were smaller satellite lesions surrounding the submenta l metastases, including a 16 mm satellite lesion just to the right of the dominant mass and a 14 x 13 mm satellite lesion just to the left of the dominant mass. In addition, there w as new right cervical lymphadenopathy in the sternocleidomastoid region. 11. He was then lost to medical oncology follow-up and was treating his progressive submental malignant lymphadenopathy wit h application of ludin packs. 12. In July 2010, he had erosion of the submental lymphade nopathy through the skin. On August 08, 2010, he had a consultation with Dr. Lennon at [facility] in [place], [place], who recommended p alliative radiation therapy. He went on to receive 3000 centigray in 10 fractions limited only to the submental metastasis between August 11, 2010 and August 25, 2010. Treatme nt plan was entirely for palliation of bleeding from his submental metastasis and he return ed promptly to his alternative medical regimen after completing his radiation therapy treat ment plan. 13. On September 24, 2010 one month after completing his radiation therapy treatment plan, he returned to see Dr. Silas German at the [facility] in [place], [place], who noted significant decrease in the size of the submental mass. He con tinued on alternative medical regimens until January 01, 2011 when he returned to the [facility] in [place], [place] and was evaluated by Dr. Eddi Navas, who noted multiple palpable bilateral cervical lymph nodes. Dr. Bryant moraes has recommended a more definitive combined modality treatment approach to his recurrent head and neck cancer with 7000 centigray given concurrently with systemic chemotherapy. CHIEF COMPLAINT: Rosas returned to the clinic on February 09, 2011 with his Katherine for his 3rd consecutive week of combined modality therapy for head and neck cancer with externa l beam radiation and weekly cisplatin. REVIEW OF SYSTEMS: Constitutional: Positive for fatigue. Positive for nausea. He has been using Reglan on a regular basis but has not used any of his as-needed lorazepam. No emesis. No anorexia or we ight loss. No high fevers or chills or night sweats although he does complain of excessive perspiration with exertion. Ear, Nose, Mouth, Throat: Denies odynophagia, dysphagia, or tinnitus. Cardiovascular: De nies shortness of breath, dyspnea on exertion, chest pain, palpitations, or orthopnea. Respiratory: Denies cough, hemoptysis, or sputum production. Gastrointestinal: Positive f or constipation which is currently being managed with prune juice and laxatives. Genitourinary: Denies hematuria or dysuria. Musculoskeletal: He is complaining of diffuse myalgias. Neurologic: He is complaining of g eneralized headache which is rated at 3/10 and described as nagging. Endocrine: We are continuing to withhold his dexamethasone from his treatment plan due to diabetes. Hematologic: Denies spontaneous bruising or bleeding. PAST MEDICAL HISTORY, PAST SURGICAL HISTORY, PSYCHOSOCIAL HISTORY, FAMILY HISTORY, AND HAB ITS: See the full dictated note on January 20, 2011, reviewed and unchanged. ROUTINE MEDICATIONS: Caphosol oral solution, one unit [...] known drug allergies. PHYSICAL EXAMINATION: Weight is 81.9 kg, temperature is 36.3 degrees Celsius. Blood press ure is 158/81, pulse 60. Karnofsky Performance Status is 70%. Saturation of oxygen is 98% o n room air. Pain is 3/10 due to headache. EYES: His epiphora due to facial edema has completely resolved. ENMT: Previously profound facial edema has completely resolved. CARDIOVASCULAR: Regular rate and rhythm. Normal S1 and S2 without murmur, gallop, or rub . LUNGS: Good air movement bilaterally. No rhonchi, wheeze, or rales. CHEST: Right anterior chest AICD is without surrounding tenderness or erythema. LYMPH NODE S: Notable for the fact that all palpable lymphadenopathy in the neck has completely resol vernon. SKIN: Beginning to develop some erythema on the radiation therapy treatment field. EXTREMITIES: No cyanosis, clubbing, or edema. NEUROLOGIC: Alert and oriented times three. Face symmetric. Voice articulate. Station and gait within normal limits. LABORATORY DATA: Hemoglobin is 12.4, hematocrit 35.9%, platelet count is 155,000, white c ount is 6600. Comprehensive metabolic panel is entirely within normal limits. ASSESSMENT: Rosas has already had a substantial palliative response to combined modality therapy with cisplatin and daily radiation. PLAN: Continue with combined modality therapy with cisplatin at 30 mg/meter squared on a w eekly basis. Treatment has been complicated by nausea and myalgias. Recommended that Rosas try taking his lorazepam on an as-needed basis every 4 hours to control nausea. He will ret urn to see me in 1 week for consideration of week #4 of combined modality cisplatin and rad iation therapy. PROCEDURE NOTE: He received 16 mg of oral Zofran, 150 mg of intravenous Emend. He receive d 1000 cc of normal saline containing 20 mEq of potassium chloride and 1 g magnesium sulfat e. He received 60 mg of intravenous cisplatin and then another 500 cc of normal saline with out adverse effects. He will take Zofran 8 mg orally twice daily for the two days following chemotherapy and also use Reglan and Ativan for as-needed nausea control. I gave Rosas a n ew prescription for Percocet 5/325, dispensed #100, 1 or 2 tablets every 4 hours as needed for pain for myalgias potentially related to his cisplatin administration. cc: Dr. Ion Murphy <Electronically Signed by Rodger Gu MD> 02/11/11 1839 Cali Alatorre MD - 01/26/2011 1:54 AM PDTDATE: 02/10/2011 RADIATION THERAPY ON-TREATMENT NOTE Mr. 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. The patient has received a total of 2544 cGy in 12 fractions of the planned 6996 cGy. The patien t did undergo his weekly cisplatin infusion yesterday. The patient states that following his chemothe rapy that he did have marked swelling of the fa ce and neck that is slightly going down since yesterda y. He states that his mask was tight er because of the swelling today. He is getting some soreness at the back of his throat, es pecially noted with swallowing, but feels that he is able to maintain his n utrition at thi s time. PHYSICAL EXAMINATION VITAL SIGNS: Blood pressure 140/80, weight 84.5 kg, which is down from 85.8 kg one week ag o, pulse o f 64 beats per minute, temperature 35.8 degrees Celsius. HEENT: There is no lymphadenopathy appreciated. There is very mild erythema, but no moist or dry alejandro quamation. The patient does have swelling especially noted in his face. Oral muc gibran is moist and pink . The patient does have a few areas of mucositis noted in the region of the soft palate. ASSESSMENT: Overall, Mr. Daniel is tolerating his concurrent chemoradiotherapy treatment rafaela rly well. He is beginning to note some mucositis in the back of his throat, and has been in structed on the use of baking soda water rinses. The patient is feeling tired, but feels th at he is able to maintain his nutrition. He has lost approximately 1 kg in the last week. PLAN: At this time, we plan on continuing his radiation treatment as currently prescribed. DICTATED BY: Cali Alatorre MD Radiation Oncology JOB #: [id number] EXT JOB #:[id number] <Electronicall y Signed by Cali Alatorre MD> 02/13/11 1637 Rodger Gu MD - 01/26/2011 1:54 AM PDTPROGRESS NOTE: 02/02/2011 IDENTIFYING STATEMENT: Papo Daniel (Fritz) is a 70 year old man from [facility] on with recurrent squamous cell carcinoma [...] origin. 3. Initial management was at the [facility] in [place] (also known as the [facility] in [place], [place]). Treatments included intravenous high-dose vitamin C. 4. On June 06, 2002, he developed recurrent palpable lymphadenopathy in the left side of the neck that was biopsied and confirmed recurrence of squamous cell carcinoma. 5. Between 17 08 and 2003, he received intravenous chemotherapy at the [facility] in [place], [place], including insulin potentiation therapy. 6. He traveled to the [facility] where he received additional insulin potentiation therapy and intralesional injection of chemotherapy between 2003 and 2004. 7. He then cross ed over to naturopathic treatment following the Oliver regimen. 8. In December 2007, he develo ped progressive submental lymphadenopathy that was confirmed to be malignant by CT PET scan February 23, 2009. 9. On March 21, 2009, he began therapy the [facility] with sodium phenylbutyrat e, Rapamune, and oral Xeloda chemotherapy. He continued on the treatment plan with vari ous doses and schedules with stable submental lymphadenopathy until September 25, 2009. 10. He cros sed over to Vectibix chemotherapy September 25, 2009 through January 29, 2010. Repeat CT scan on February 07, 2010 at [facility] in [place], [place] demonstrated progres susannah of disease with [...] a consultation with Dr. Lennon at the [facility] in [place], [place], who recommended palliative radiation therapy. He [...] to see Dr. Silas German at the [facility] in [place], [place], who noted significant decrease in the size of the submental mass. He continued on a lternative medical regimens until January 01, 2011 when he returned to the [facility] in [place], [place] and was evaluated by Dr. Bryant Navas, who not ed multiple palpable bilateral cervical lymph nodes. Dr. Bryant Navas has recommended a mor e definitive combined modality treatment approach to his recurrent head and neck cancer with 7000 centigray given concurrently with systemic chemotherapy. CHIEF COMPLAINT: Rosas returned to the clinic on February 02, 2011 for his second consecutiv e week of cisplatin chemotherapy, which is given concurrently with external beam radiation therapy for his head and neck cancer. REVIEW OF SYSTEMS: CONSTITUTIONAL: Rosas had little or no nausea and no emesis. Denies anorexia, weight los s, high fever, or chills. He has had no fatigue or night sweats. EAR, NOSE, MOUTH, THROAT: Denies odynophagia, dysphagia, or tinnitus. CARDIOVASCULAR: Denies shortness of breath, dyspnea on exertion, chest pain, palpitations, or orthopnea. RESPIRATORY: Denies cough, hemoptysis, or sputum production. GASTROINTESTINAL: He has aguirre d some constipation, likely related to his chemotherapy as well as antiemetics. GENITOURINARY: Denies hematuria or dysuria. MUSCULOSKELETAL: Denies joint pain and tenderness. NEUROLOGIC: Rosas is having some headaches, potentially related to his antiemetic therapy . ENDOCRINE: We are continuing to withhold dexamethasone from his treatment plan because of diabetes. HEMATOLOGIC: Denies spontaneous bruising or bleeding. PAST MEDICAL HISTORY, FAMILY HISTORY, SOCIAL HISTORY, HABITS: Please see the full dictate d note dated January 20, 2011, which is reviewed and unchanged. ROUTINE MEDICATIONS: Caphosol oral solution, one unit [...] known drug allergies. PHYSICAL EXAMINATION: Weight is 82.9 kg, temperature 37.2 degrees Celsius, blood pressure 158/74, pulse 63. Karnofsky Performance Status is 80%. Oxygen saturation is 99% on room air. Pain is 0 out of 10. EYES: His epiphora due to facial edema has completely resolved. ENMT: His previously profound facial edema has completely resolved. CARDIOVASCULAR: Regular rate and rhythm. Normal S1 and S2 without murmur, gallop, or rub . LUNGS: Good air movement bilaterally. No rhonchi, wheeze, or rales. CHEST: Right anterior chest AICD is without surrounding tenderness or erythema. LYMPH NODES: Notable for the fact that the previously palpable low right anterior cervica l lymph node is completely resolved. The previously palpable superior right cervical lymph node is also completely resolved. SKIN: No petechiae, ecchymoses, or rash. EXTREMITIES: No cyanosis, clubbing, or edema. NEUROLOGIC: Alert and oriented times three. Face symmetric. Voice articulate. Station and gait within normal limits. STUDIES: Hemoglobin is 12.4, hematocrit 35.8%, platelet count 158,000, white count 5400. Comprehensive metabolic panel is entirely within normal limits. Serum magnesium is normal at 2.1. ASSESSMENT: Rosas has had a dramatic reduction in facial edema and cervical lymphadenopat hy with just one week of combined modality therapy for his recurrent head and neck cancer. PLAN: Continue with combined modality therapy with external beam radiation, given concurr ently with cisplatin at 30 mg/m2/week. PROCEDURE: Week no. 2 of cisplatin. He received 16 mg of intravenous Zofran, 150 mg of in travenous Emend, 1000 cc of normal saline containing 20 mEq of potassium chloride and one g felipe magnesium sulfate. He received 60 mg of intravenous cisplatin. He then received anoth er 500 cc of normal saline after his chemotherapy. I instructed Rosas to resume Zofran 8 mg orally twice daily for two days after chemotherap y. If his headaches persist, we will consider crossing over to another antiemetic altogeth er with his next cycle. CC: Dr. Ion Murphy <Electronically Signed by Rodger Gu MD> 02/03/11 1748 Yue Alvarado MD - 01/26/2011 1:54 AM PDTDATE: 02/03/2011 RADIATION ONCOLOGY WEEKLY MANAGEMENT NOTE BRIEF HISTORY: Mr. Daniel is receiving radiation therapy treatment for recurrent squamous ce ll carcino ma of the base of the tongue. He is receiving weekly cisplatin chemotherapy. He is currently, today, on 02/03/2011, at a total dose of 1484 cGy, and at his 7th fraction of treatment. The planned total d ose is 7000 cGy to the base of tongue and an involved nodes , 5940 cGy to the CTV1 from [address] V2, which would be elective lymph nodes. All simon atments are being delivered utilizing intensity modul ated radiation therapy. He is not complaining of anything today, as far as pain or discomfort in the treated area. He was abl e to eat without difficulty. OBJECTIVE VITAL SIGNS: Blood pressure 144/70. Pain 0/10. Weight 86.5 kg, which is up slightly from h is weight on 01/27/2011, which was 85.8 kg, pulse 60, temperature 35.6. KTS 70%. SKIN: The examination of the skin of the head and neck region in the treated area, showed trace eryt heidy. There was no dry or moist desquamation. There is bilateral lower facial ed pallavi. Again, noted is his poor dentition. ASSESSMENT: Mr. Daniel is tolerating his concurrent chemoradiation therapy for recurrent squ amous cell carcinoma of the base of the tongue extremely well, with minimal radiation side effects. PLAN: Continue radiation therapy and chemotherapy as previously planned. Again, I discusse d with him , as did Dr. Glover last week, the necessity for him to see his dentist, as thi s was not done prior to him starting this chemoradiation. He did not do that over the past week, but promises that he will do so today. He is being seen by the Lymphedema Management Team, and he is quite pleased with that. He is also going to be evaluated, according to him , for range of motion exercises of the head and nec k region. He previously used alternative and complimentary therapy, and his asked me about the u se of any supplements, as he is currently receiving acupuncture, and his strategic procurement manager was wondering if he coul d start him on additional supplementation. I recommended to the patien t if he is taking nothing curre ntly that he take [place]-3 fatty acids, with a total dose of at least 1000 mg of ETA DHA on a daily ba sis, and 1000 international units of vitamin D3. I also suggested he may want to start [employer] mushroom díaz pplemartine, and I recommended to him that he not take any suppleme nts that are from [place], s econdary to quality concern. He will discuss this with his strategic procurement manager. We also went over skin management with him and I discussed the use of Cetaphil skin cleanse r, CeraVe skin cream, and the addition of 1% hydrocortisone cream, with the CeraVe, should he start to develop more erythema within the treated region. DICTATED BY: Yue Alvarado MD JOB #: [id number] EXT JOB #:[id number] EDITED: 02/03/2011 14:26 <Electronically Signed by Yue Alvarado MD> 02/03/11 1655 Rodger Gu MD - 01/26/2011 1:54 AM PDTPROGRESS NOTE: 01/26/2011 IDENTIFYING STATEMENT: Papo Daniel (Fritz) is a 70 year old man from [facility] on with recurrent squamous cell carcinoma [...] origin. 3. Initial management was at the [facility] in [place] (also known as the [facility] in [place], [place]). Treatments included intravenous high-dose vitamin C. 4. On June 06, 2002, he developed recurrent palpable lymphadenopathy in the left side of the neck that was biopsied and confirmed recurrence of squamous cell carcinoma. 5. Between 17 08 and 2003, he received intravenous chemotherapy at the [facility] in [place], [place], including insulin potentiation therapy. 6. He traveled to the [facility] where he received additional insulin potentiation therapy and intralesional injection of chemotherapy between 2003 and 2004. 7. He then cross ed over to naturopathic treatment following the Oliver regimen. 8. In December 2007, he develo ped progressive submental lymphadenopathy that was confirmed to be malignant by CT PET scan February 23, 2009. 9. On March 21, 2009, he began therapy the [facility] with sodium phenylbutyrat e, Rapamune, and oral Xeloda chemotherapy. He continued on the treatment plan with vari ous doses and schedules with stable submental lymphadenopathy until September 25, 2009. 10. He cros sed over to Vectibix chemotherapy September 25, 2009 through January 29, 2010. Repeat CT scan on February 07, 2010 at [facility] in [place], [place] demonstrated progres susannah of disease with [...] a consultation with Dr. Lennon at the [facility] in [place], [place], who recommended palliative radiation therapy. He [...] to see Dr. Silas German at the [facility] in [place], [place], who noted significant decrease in the size of the submental mass. He continued on a lternative medical regimens until January 01, 2011 when he returned to the [facility] in [place], [place] and was evaluated by Dr. Bryant Navas, who not ed multiple palpable bilateral cervical lymph nodes. Dr. Bryant Navas has recommended a mor e definitive combined modality treatment approach to his recurrent head and neck cancer with 7000 centigray given concurrently with systemic chemotherapy. CHIEF COMPLAINT: Rosas returned to the clinic on January 26, 2011 to begin combined modalit y therapy for his recurrent head and neck cancer. REVIEW OF SYSTEMS: Positive for generalized arthralgias and myalgias. Positive for fatig ue. Positive for mild anorexia. Reports no anorexia or weight loss. Denies any swallowin g difficulties. PHYSICAL EXAMINATION: Weight is 84.2 kg, temperature 36.6 degrees Celsius, blood pressu re 139/66, pulse 58. Karnofsky Performance Status is 80%. Oxygen saturation is 97% on maribel m air. EYES: Notable for epiphora due to facial edema. ENMT: Positive for significant facial edema. CARDIOVASCULAR: Regular rate and rhythm. Normal S1 and S2 without murmur, gallop, or rub . LUNGS: Good air movement bilaterally. No rhonchi, wheeze, or rales. LYMPH NODES: There is a palpable low right anterior cervical lymph node. There is a palp able superior right cervical lymph node. STUDIES: Hemoglobin is 12.4, hematocrit 36.2%, platelet count 160,000, white count 5700. Comprehensive metabolic panel is notable for the fact that his creatinine is normal at 0.9 . CEA is normal at 2.88. 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 PLAN: Proceed today with combined modality therapy with external beam radiation therapy s upervised by Bryant Navas given concurrently with cisplatin at 30 mg/m2 weekly. Rosas specifically asked me about the use of amifostine to reduce stomatitis during combin ed modality therapy. However, I told Rosas that amifostine has a very adverse and poor ris k benefit profile, especially as it relates to increased toxicity of nausea, vomiting, and hypotension. Therefore, I did not recommend amifostine with his chemotherapy program. I did recommend that he put a teaspoon of baking soda in a quart of water and rinse and sp it five times a day religiously during his combined modality therapy. PROCEDURE: He received 24 mg of oral Zofran, 150 mg of intravenous Emend, 1000 cc of zachary l saline containing 20 mEq of potassium chloride and one gram of magnesium sulfate. He the n received 60 mg of intravenous cisplatin and then another 500 cc of normal saline, all wit hout adverse effects. Prescriptions were called in to the [facility] for Zofran 8 m g, no. 30, one p.o. twice daily for the two days after chemotherapy and Ativan one milligra m, no. 30, one tablet every four hours as needed for nausea, anxiety, or restlessness. CC: Dr. Ion Murphy <Electronically Signed by Rodger Gu MD> 02/01/11 9127 Bryant Glover MD - 01/26/2011 1:54 AM PDTDATE: 01/27/2011 RADIATION ONCOLOGY PROGRESS NOTE BRIEF HISTORY: David Daniel has received his second radiation therapy treatment today fo r recurrent squamous cell carcinoma base of tongue. Radiation therapy is given, concurrentl y with weekly cisplatin chemotherapy. He had received "palliative" radiation therapy in thi s office to the tongue in July 2010. His tumor bed dose today is 4.24 Gy, of a planned 70.0 Gy. He has no acute RT related complaint. He does have some post-chemotherapy nausea. This is being managed by medical oncology. PHYSICAL EXAMINATION GENERAL: Shows the patient to appear comfortable. VITAL SIGNS: His weight is 85.8 kg. I would just his current KPS score to be 70 -80. FACE: The patient has bilateral anterior facial edema. Exam of the oral cavity and oropha rynx failed to demonstrate RT related mucosal reaction. The patient is noted to have poor d entition. IMPRESSION: David Daniel is tolerating radiation therapy very early in the course of his treatment for recurrent squamous cell carcinoma base of tongue. The patient and were advised about dental prophylaxis, as it relates to aggressive he ad and neck radiation therapy. The patient and were advised that it would be my [facility] practice to have the patient evaluated by his dentist or an oral surgeon pre RT, for pro phylactic measures, which may require prophylactic extractions. 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 I, maryanne winkler, have advised patient and about the urgent need for him to be evaluated by his ender arreaga, whom the patient says he has not seen for several months, for aggressive dental hyg iene/restorative work that may be necessary at this point. The patient and his were al so advised about the need for initiation of an aggressive daily dental hygiene program, to be discussed with his dentist as well. The patient and his were advised to consult [facility]ology prior to any dental work that would need to be done at this point. Radi ation therapy will continue as previously planned. DICTATED BY: Bryant Glover MD JOB #: [id number] EXT JOB #:[id number] cc: Silas German MD <Electronically Signed by Bryant Glover MD> 01/27/11 1222 documented in this encounter Plan of Treatment [...] | | | | | [place], [place] | | | | | | [id number] | | | | | | | | +--------+ + + + + documented as of this encounter Procedures + +--------+ + + + | Procedure Name | Priori | Date/Time | Associated Diagnosis | Comments | | | ty | | | | + +--------+ + + + | CBC WITH | Routin | 02/23/2011 | | Results for this | | DIFFERENTIAL | e | 8:09 AM | | procedure are in the | | | | PDT | | results section. | + +--------+ + + + | MAGNESIUM | Routin | 02/23/2011 | | Results for this | | | e | 8:09 AM | | procedure are in the | | | | PDT | | results section. | + +--------+ + + + | LACTATE | Routin | 02/23/2011 | | Results for this | | DEHYDROGENASE | e | 8:09 AM | | procedure are in the | | | | PDT | | results section. | + +--------+ + + + | COMPREHENSIVE | Routin | 02/23/2011 | | Results for this | | METABOLIC PANEL | e | 8:09 AM | | procedure are in the | | | | PDT | | results section. | + +--------+ + + + | CBC WITH | Routin | 02/16/2011 | | Results for this | | DIFFERENTIAL | e | 8:26 AM | | procedure are in the | | | | PDT | | results section. | + +--------+ + + + | MAGNESIUM | Routin | 02/16/2011 | | Results for this | | | e | 8:26 AM | | procedure are in the | | | | PDT | | results section. | + +--------+ + + + | LACTATE | Routin | 02/16/2011 | | Results for this | | DEHYDROGENASE | e | 8:26 AM | | procedure are in the | | | | PDT | | results section. | + +--------+ + + + | COMPREHENSIVE | Routin | 02/16/2011 | | Results for this | | METABOLIC PANEL | e | 8:26 AM | | procedure are in the | | | | PDT | | results section. | + +--------+ + + + | CBC WITH | Routin | 02/09/2011 | | Results for this | | DIFFERENTIAL | e | 7:48 AM | | procedure are in the | | | | PDT | | results section. | + +--------+ + + + | MAGNESIUM | Routin | 02/09/2011 | | Results for this | | | e | 7:48 AM | | procedure are in the | | | | PDT | | results section. | + +--------+ + + + | LACTATE | Routin | 02/09/2011 | | Results for this | | DEHYDROGENASE | e | 7:48 AM | | procedure are in the | | | | PDT | | results section. | + +--------+ + + + | COMPREHENSIVE | Routin | 02/09/2011 | | Results for this | | METABOLIC PANEL | e | 7:48 AM | | procedure are in the | | | | PDT | | results section. | + +--------+ + + + | CBC WITH | Routin | 02/02/2011 | | Results for this | | DIFFERENTIAL | e | 8:52 AM | | procedure are in the | | | | PDT | | results section. | + +--------+ + + + | MAGNESIUM | Routin | 02/02/2011 | | Results for this | | | e | 8:52 AM | | procedure are in the | | | | PDT | | results section. | + +--------+ + + + | LACTATE | Routin | 02/02/2011 | | Results for this | | DEHYDROGENASE | e | 8:52 AM | | procedure are in the | | | | PDT | | results section. | + +--------+ + + + | CEA | Routin | 02/02/2011 | | Results for this | | | e | 8:52 AM | | procedure are in the | | | | PDT | | results section. | + +--------+ + + + | COMPREHENSIVE | Routin | 02/02/2011 | | Results for this | | METABOLIC PANEL | e | 8:52 AM | | procedure are in the | | | | PDT | | results section. | + +--------+ + + + | CBC WITH | Routin | 01/26/2011 | | Results for this | | DIFFERENTIAL | e | 9:52 AM | | procedure are in the | | | | PDT | | results section. | + +--------+ + + + | MAGNESIUM | Routin | 01/26/2011 | | Results for this | | | e | 9:52 AM | | procedure are in the | | | | PDT | | results section. | + +--------+ + + + | LACTATE | Routin | 01/26/2011 | | Results for this | | DEHYDROGENASE | e | 9:52 AM | | procedure are in the | | | | PDT | | results section. | + +--------+ + + + | CEA | Routin | 01/26/2011 | | Results for this | | | e | 9:52 AM | | procedure are in the | | | | PDT | | results section. | + +--------+ + + + | COMPREHENSIVE | Routin | 01/26/2011 | | Results for this | | METABOLIC PANEL | e | 9:52 AM | | procedure are in the | | | | PDT | | results section. | + +--------+ + + + documented in this encounter Results Comprehensive Metabolic Panel (02/23/2011 8:09 AM PDT) + + + + + + | Component | Value | Ref Range | Performed | Pathologist | | | | | At | Signature | + + + + + + | Glucose | 137 (H) | 70 - 109 mg/dL | [facility] | | | | | | [facility] | | | | | | [facility] | | | | | | [facility] - | | | | | | LABORATORY | | + + + + + + | Calcium | 8.6 | 8.3 - 10.5 | [facility] | | | | | mg/dL | [facility] | | | | | | [facility] | | | | | | C[facility] - | | | | | | LABORATORY | | + + + + + + | Alkaline | 42 | 40 - 110 IU/L | [facility] | | | Phosphatase | | | [facility] | | | | | | [facility] | | | | | | CENTER - | | | | | | LABORATORY | | + + + + + + | AST | 20 | 10 - 42 IU/L | [facility] | | | | | | [facility] | | | | | | [facility] | | | | | | [facility] - | | | | | | LABORATORY | | + + + + + + | ALT | 11 | 6 - 45 IU/L | [facility] | | | | | | [facility] | | | | | | [facility] | | | | | | [facility] - | | | | | | LABORATORY | | + + + + + + | Bilirubin | 0.9 | 0.2 - 1.0 mg/dL | [facility] | | | Total | | | [facility] | | | | | | [facility] | | | | | | CENTER - | | | | | | LABORATORY | | + + + + + + | Total | 6.1 | 6.0 - 7.8 gm/dL | [facility] | | | Protein | | | [facility] | | | | | | [facility] | | | | | | [facility] - | | | | | | LABORATORY | | + + + + + + | Albumin | 3.6 | 3.2 - 5.0 gm/dL | [facility] | | | | | | [facility] | | | | | | [facility] | | | | | | C[facility] - | | | | | | LABORATORY | | + + + + + + | BUN | 12 | 7 - 18 mg/dL | [facility] | | | | | | [facility] | | | | | | [facility] | | | | | | CENTER - | | | | | | LABORATORY | | + + + + + + | Creatinine | 0.85 | 0.60 - 1.30 | [facility] | | | | | mg/dL | [facility] | | | | | | [facility] | | | | | | CENTER - | | | | | | LABORATORY | | + + + + + + | Estimated | >60Comment: For | >60 mL/min/A | [facility] | | | GFR | -Americans, | | [facility] | | | | please multiply the | | MEDICAL | | | | result by 1.210 | | CENTER - | | | | This is an estimated | | LABORATORY | | | | GFR and is based on | | | | | | a standard body | | | | | | mass and serum | | | | | | creatinine | | | | + + + + + + | BUN/Creatin | 14.1 | 12 - 20 | [facility] | | | ine Ratio | | | [facility] | | | [facility] | | MEDICAL | | | | | | CENTER - | | | | | | LABORATORY | | + + + + + + | Na | 133 (L) | 136 - 149 mEq/L | [facility] | | | | | | [facility] | | | | | | [facility] | | | | | | CENTER - | | | | | | LABORATORY | | + + + + + + | K | 4.3 | 3.5 - 5.1 mEq/l | [facility] | | | | | | [facility] | | | | | | [facility] | | | | | | CENTER - | | | | | | LABORATORY | | + + + + + + | Cl | 101 | 98 - 109 mEq/l | [facility] | | | | | | [facility] | | | | | | [facility] | | | | | | CENTER - | | | | | | LABORATORY | | + + + + + + | CO2 | 28 | 24 - 31 mEq/L | [facility] | | | | | | [facility] | | | | | | MEDICAL | | | | | | CENTER - | | | | | | LABORATORY | | + + + + + + | Anion Gap | 8.3 | 6.0 - 17.0 | [facility] | | | | | | [facility] | | | | | | [facility]ICAL | | | | | | CENTER - | | | | | | LABORATORY | | + + + + + + + + | Specimen | + + | | + + + + + + + | Performing | Address | City/State/Zipcode | Phone Number | | Organization | | | | + + + + + | [facility] | [address] | [place] | [phone] | | [facility] | | [address] | | | - LABORATORY | | | | + + + + + | [facility] | [address] | [place] | | | [facility] | | [id number] | | | - LABORATORY | | | | + + + + + Lactate Dehydrogenase (02/23/2011 8:09 AM PDT) + +-------+ + + + | Component | Value | Ref Range | Performed | Pathologist | | | | | At | Signature | + +-------+ + + + | LDH TOTAL | 149 | 91 - 180 IU/L | [facility] | | | | | | [facility] | | | | | | MEDICAL | | | | | | CENTER - | | | | | | LABORATORY | | + +-------+ + + + + + | Specimen | + + | | + + + + + + + | Performing | Address | City/State/Zipcode | Phone Number | | Organization | | | | + + + + + | [facility] | [address] | [place], [place] | [phone] | | [facility] | | [address] | | | - LABORATORY | | | | + + + + + | [facility] | [address] | [place], [place] | | | [facility] | | [address] [place] [address] | | | - LABORATORY | | | | + + + + + Magnesium (02/23/2011 8:09 AM PDT) + +-------+ + + + | Component | Value | Ref Range | Performed | Pathologist | | | | | At | Signature | + +-------+ + + + | Magnesium | 2.1 | 1.8 - 2.5 mg/dL | [facility] | | | | | | [facility] | | | | | | MEDICAL | | | | | | CENTER - | | | | | | LABORATORY | | + +-------+ + + + + + | Specimen | + + | | + + + + + + + | Performing | Address | City/State/Zipcode | Phone Number | | Organization | | | | + + + + + | [facility] | [address] | [place] | [phone] | | [facility] | | [address] | | | - LABORATORY | | | | + + + + + | [facility] | [address] | [place] | | | [facility] | | [id number] | | | - LABORATORY | | | | + + + + + CBC with Differential (02/23/2011 8:09 AM PDT) + + + + + + | Component | Value | Ref Range | Performed | Pathologist | | | | | At | Signature | + + + + + + | WBC | 4.9 (A) | 4.0 - 11.0 K/uL | [facility] | | | | | | [facility] | | | | | | MEDICAL | | | | | | CENTER - | | | | | | LABORATORY | | + + + + + + | RBC | 3.36 (L) | 4.30 - 5.70 | [facility] | | | | | M/uL | [facility] | | | | | | [facility] | | | | | | CENTER - | | | | | | LABORATORY | | + + + + + + | Hemoglobin | 11.8 (L) | 13.5 - 18.0 | [facility] | | | | | gm/dL | [facility] | | | | | | MEDICAL | | | | | | CENTER - | | | | | | LABORATORY | | + + + + + + | Hematocrit | 34.4 (L) | 40.0 - 51.0 % | [facility] | | | | | | [facility] | | | | | | MEDICAL | | | | | | CENTER - | | | | | | LABORATORY | | + + + + + + | MCV | 102.3 (H) | 83.0 - 101.0 fL | [facility] | | | | | | [facility] | | | | | | MEDICAL | | | | | | CENTER - | | | | | | LABORATORY | | + + + + + + | MCH | 35.2 (H) | 28.0 - 35.0 pg | [facility] | | | | | | [facility] | | | | | | MEDICAL | | | | | | CENTER - | | | | | | LABORATORY | | + + + + + + | MCHC | 34.4 | 32.0 - 36.0 | [facility] | | | | | g/dL | [facility] | | | | | | MEDICAL | | | | | | CENTER - | | | | | | LABORATORY | | + + + + + + | RDW-CV | 14.9 | <15.0 % | [facility] | | | | | | [facility] | | | | | | MEDICAL | | | | | | CENTER - | | | | | | LABORATORY | | + + + + + + | Platelet | 109 (L) | 140 - 440 K/uL | [facility] | | | Count | | | [facility] | | | | | | MEDICAL | | | | | | CENTER - | | | | | | LABORATORY | | + + + + + + | % | 77.0 (H) | 45 - 75 % | [facility] | | | Neutrophils | | | [facility] | | | | | | MEDICAL | | | | | | CENTER - | | | | | | LABORATORY | | + + + + + + | % | 6.9 (L) | 20 - 45 % | [facility] | | | Lymphocytes | | | [facility] | | | | | | MEDICAL | | | | | | CENTER - | | | | | | LABORATORY | | + + + + + + | % Monocytes | 14.1 (H) | 4 - 12 % | [facility] | | | | | | [facility] | | | | | | MEDICAL | | | | | | CENTER - | | | | | | LABORATORY | | + + + + + + | % | 1.4 | 0 - 5 % | [facility] | | | Eosinophils | | | [facility] | | | | | | MEDICAL | | | | | | CENTER - | | | | | | LABORATORY | | + + + + + + | % Basophils | 0.6 | 0 - 1 % | [facility] | | | | | | [facility] | | | | | | MEDICAL | | | | | | CENTER - | | | | | | LABORATORY | | + + + + + + | Absolute | 3.7 | 1.5 - 6.6 K/uL | [facility] | | | Neutrophils | | | [facility] | | | | | | MEDICAL | | | | | | CENTER - | | | | | | LABORATORY | | + + + + + + | Absolute | 0.3 (L) | 0.6 - 3.2 K/uL | [facility] | | | Lymphocytes | | | [facility] | | | | | | MEDICAL | | | | | | CENTER - | | | | | | LABORATORY | | + + + + + + | Absolute | 0.7 | 0.0 - 1.0 K/uL | [facility] | | | Monocytes | | | [facility] | | | | | | MEDICAL | | | | | | CENTER - | | | | | | LABORATORY | | + + + + + + | Absolute | 0.1 | 0.0 - 0.4 K/uL | [facility] | | | Eosinophils | | | [facility] | | | | | | MEDICAL | | | | | | CENTER - | | | | | | LABORATORY | | + + + + + + | Absolute | 0.0 | 0.0 - 0.1 K/uL | [facility] | | | Basophils | | | [facility] | | | | | | MEDICAL | | | | | | CENTER - | | | | | | LABORATORY | | + + + + + + + + | Specimen | + + | | + + + + + + + | Performing | Address | City/State/Zipcode | Phone Number | | Organization | | | | + + + + + | [facility] | [address] | [place], [place] | [phone] | | [facility] | | [address] | | | - LABORATORY | | | | + + + + + | [facility] | [address] | [place], [place] | | | [facility] | | [address] | | | - LABORATORY | | | | + + + + + Comprehensive Metabolic Panel (02/16/2011 8:26 AM PDT) + + + + + + | Component | Value | Ref Range | Performed | Pathologist | | | | | At | Signature | + + + + + + | Glucose | 159 (H) | 70 - 109 mg/dL | [facility] | | | | | | [facility] | | | | | | MEDICAL | | | | | | CENTER - | | | | | | LABORATORY | | + + + + + + | Calcium | 8.6 | 8.3 - 10.5 | [facility] | | | | | mg/dL | [facility] | | | | | | MEDICAL | | | | | | CENTER - | | | | | | LABORATORY | | + + + + + + | Alkaline | 49 | 40 - 110 IU/L | [facility] | | | Phosphatase | | | [facility] | | | | | | MEDICAL | | | | | | CENTER - | | | | | | LABORATORY | | + + + + + + | AST | 20 | 10 - 42 IU/L | [facility] | | | | | | [facility] | | | | | | MEDICAL | | | | | | CENTER - | | | | | | LABORATORY | | + + + + + + | ALT | 15 | 6 - 45 IU/L | [facility] | | | | | | [facility] | | | | | | MEDICAL | | | | | | CENTER - | | | | | | LABORATORY | | + + + + + + | Bilirubin | 0.9 | 0.2 - 1.0 mg/dL | [facility] | | | Total | | | [facility] | | | | | | MEDICAL | | | | | | CENTER - | | | | | | LABORATORY | | + + + + + + | Total | 6.5 | 6.0 - 7.8 gm/dL | [facility] | | | Protein | | | [facility] | | | | | | MEDICAL | | | | | | CENTER - | | | | | | LABORATORY | | + + + + + + | Albumin | 4.0 | 3.2 - 5.0 gm/dL | [facility] | | | | | | [facility] | | | | | | [facility] | | | | | | CENTER - | | | | | | LABORATORY | | + + + + + + | BUN | 13 | 7 - 18 mg/dL | [facility] | | | | | | [facility] | | | | | | MEDICAL | | | | | | CENTER - | | | | | | LABORATORY | | + + + + + + | Creatinine | 0.90 | 0.60 - 1.30 | [facility] | | | | | mg/dL | [facility] | | | | | | MEDICAL | | | | | | CENTER - | | | | | | LABORATORY | | + + + + + + | Estimated | >60Comment: For | >60 mL/min/A | [facility] | | | GFR | -Americans, | | [facility] | | | | please multiply the | | MEDICAL | | | | result by 1.210 | | CENTER - | | | | This is an estimated | | LABORATORY | | | | GFR and is based on | | | | | | a standard body | | | | | | mass and serum | | | | | | creatinine | | | | + + + + + + | BUN/Creatin | 14.4 | 12 - 20 | [facility] | | | ine Ratio | | | [facility] | | | | | | MEDICAL | | | | | | CENTER - | | | | | | LABORATORY | | + + + + + + | Na | 129 (L) | 136 - 149 mEq/L | [facility] | | | | | | [facility] | | | | | | MEDICAL | | | | | | CENTER - | | | | | | LABORATORY | | + + + + + + | K | 4.5 | 3.5 - 5.1 mEq/l | [facility] | | | | | | [facility] | | | | | | MEDICAL | | | | | | CENTER - | | | | | | LABORATORY | | + + + + + + | Cl | 101 | 98 - 109 mEq/l | [facility] | | | | | | [facility] | | | | | | MEDICAL | | | | | | CENTER - | | | | | | LABORATORY | | + + + + + + | CO2 | 25 | 24 - 31 mEq/L | [facility] | | | | | | [facility] | | | | | | MEDICAL | | | | | | CENTER - | | | | | | LABORATORY | | + + + + + + | Anion Gap | 7.5 | 6.0 - 17.0 | [facility] | | | | | | [facility] | | | | | | MEDICAL | | | | | | CENTER - | | | | | | LABORATORY | | + + + + + + + + | Specimen | + + | | + + + + + + + | Performing | Address | City/State/Zipcode | Phone Number | | Organization | | | | + + + + + | [facility] | [address] | [place], [place] | [phone] | | [facility] | | [address] | | | - LABORATORY | | | | + + + + + | [facility] | [address] | [place], [place] | | | [facility] | | [address], [facility] | | | - LABORATORY | | | | + + + + + Lactate Dehydrogenase (02/16/2011 8:26 AM PDT) + +-------+ + + + | Component | Value | Ref Range | Performed | Pathologist | | | | | At | Signature | + +-------+ + + + | LDH TOTAL | 171 | 91 - 180 IU/L | [facility] | | | | | | [facility] | | | | | | MEDICAL | | | | | | CENTER - | | | | | | LABORATORY | | + +-------+ + + + + + | Specimen | + + | | + + + + + + + | Performing | Address | City/State/Zipcode | Phone Number | | Organization | | | | + + + + + | [facility] | [address] | [place] | [phone] | | [facility] | | [address] | | | - LABORATORY | | | | + + + + + | [facility] | [address] | [place], [place] | | | [facility] | | [id number] | | | - LABORATORY | | | | + + + + + Magnesium (02/16/2011 8:26 AM PDT) + +-------+ + + + | Component | Value | Ref Range | Performed | Pathologist | | | | | At | Signature | + +-------+ + + + | Magnesium | 2.0 | 1.8 - 2.5 mg/dL | [facility] | | | | | | [facility] | | | | | | MEDICAL | | | | | | CENTER - | | | | | | LABORATORY | | + +-------+ + + + + + | Specimen | + + | | + + + + + + + | Performing | Address | City[place] [place] Phone Number | | Organization | | | | + + + + + | [facility] | [address] | [place] | [phone] | | [facility] | | [address] | | | - LABORATORY | | | | + + + + + | [facility] | [address] | [place] | | | [facility] | | [address], [facility] | | | - LABORATORY | | | | + + + + + CBC with Differential (02/16/2011 8:26 AM PDT) + + + + + + | Component | Value | Ref Range | Performed | Pathologist | | | | | At | Signature | + + + + + + | WBC | 6.0 | 4.0 - 11.0 K/uL | [facility] | | | | | | [facility] | | | | | | MEDICAL | | | | | | CENTER - | | | | | | LABORATORY | | + + + + + + | RBC | 3.68 (L) | 4.30 - 5.70 | [facility] | | | | | M/uL | [facility] | | | | | | MEDICAL | | | | | | CENTER - | | | | | | LABORATORY | | + + + + + + | Hemoglobin | 12.8 (L) | 13.5 - 18.0 | [facility] | | | | | gm/dL | [facility] | | | | | | MEDICAL | | | | | | CENTER - | | | | | | LABORATORY | | + + + + + + | Hematocrit | 37.5 (L) | 40.0 - 51.0 % | [facility] | | | | | | [facility] | | | | | | MEDICAL | | | | | | CENTER - | | | | | | LABORATORY | | + + + + + + | MCV | 102.0 (H) | 83.0 - 101.0 fL | [facility] | | | | | | [facility] | | | | | | MEDICAL | | | | | | CENTER - | | | | | | LABORATORY | | + + + + + + | MCH | 34.9 | 28.0 - 35.0 pg | [facility] | | | | | | [facility] | | | | | | MEDICAL | | | | | | CENTER - | | | | | | LABORATORY | | + + + + + + | MCHC | 34.2 | 32.0 - 36.0 | [facility] | | | | | g/dL | [facility] | | | | | | MEDICAL | | | | | | CENTER - | | | | | | LABORATORY | | + + + + + + | RDW-CV | 14.5 | <15.0 % | [facility] | | | | | | [facility] | | | | | | MEDICAL | | | | | | CENTER - | | | | | | LABORATORY | | + + + + + + | Platelet | 118 (L)Comment: | 140 - 440 K/uL | [facility] | | | Count | INTERPRET PLATELET COUNT | | [facility] | | | | WITH CAUTION. MAY BE | | MEDICAL | | | | SLIGHTLY CLOTTED WITH | | CENTER - | | | | PLATELET CLUMPS. | | LABORATORY | | + + + + + + | % | 83.5 (H) | 45 - 75 % | [facility] | | | Neutrophils | | | [facility] | | | | | | MEDICAL | | | | | | CENTER - | | | | | | LABORATORY | | + + + + + + | % | 6.3 (L) | 20 - 45 % | [facility] | | | Lymphocytes | | | [facility] | | | | | | MEDICAL | | | | | | CENTER - | | | | | | LABORATORY | | + + + + + + | % Monocytes | 8.9 | 4 - 12 % | [facility] | | | | | | [facility] | | | | | | MEDICAL | | | | | | CENTER - | | | | | | LABORATORY | | + + + + + + | % | 1.2 | 0 - 5 % | [facility] | | | Eosinophils | | | [facility] | | | | | | MEDICAL | | | | | | CENTER - | | | | | | LABORATORY | | + + + + + + | % Basophils | 0.1 | 0 - 1 % | [facility] | | | | | | [facility] | | | | | | MEDICAL | | | | | | CENTER - | | | | | | LABORATORY | | + + + + + + | Absolute | 5.0 | 1.5 - 6.6 K/uL | [facility] | | | Neutrophils | | | [facility] | | | | | | MEDICAL | | | | | | CENTER - | | | | | | LABORATORY | | + + + + + + | Absolute | 0.4 (L) | 0.6 - 3.2 K/uL | [facility] | | | Lymphocytes | | | [facility] | | | | | | MEDICAL | | | | | | CENTER - | | | | | | LABORATORY | | + + + + + + | Absolute | 0.5 | 0.0 - 1.0 K/uL | [facility] | | | Monocytes | | | [facility] | | | | | | MEDICAL | | | | | | CENTER - | | | | | | LABORATORY | | + + + + + + | Absolute | 0.1 | 0.0 - 0.4 K/uL | [facility] | | | Eosinophils | | | [facility] | | | | | | MEDICAL | | | | | | CENTER - | | | | | | LABORATORY | | + + + + + + | Absolute | 0.0 | 0.0 - 0.1 K/uL | [facility] | | | Basophils | | | [facility] | | | | | | MEDICAL | | | | | | CENTER - | | | | | | LABORATORY | | + + + + + + | SUSPECTED | 1 (H) | | [facility] | | | PROBLEM IS: | Comment: | | [facility] | | | | Platelet Clumps | | MEDICAL | | | | WBC Interference | | CENTER - | | | | | | LABORATORY | | + + + + + + + + | Specimen | + + | | + + + + + + + | Performing | Address | City/State/Zipcode | Phone Number | | Organization | | | | + + + + + | [facility] | [address] | [place] | [phone] | | [facility] | | [address] | | | - LABORATORY | | | | + + + + + | [facility] | [address] | [place] | | | [facility] | | [address], [facility] | | | - LABORATORY | | | | + + + + + Comprehensive Metabolic Panel (02/09/2011 7:48 AM PDT) + + + + + + | Component | Value | Ref Range | Performed | Pathologist | | | | | At | Signature | + + + + + + | Glucose | 56 (L) | 70 - 109 mg/dL | [facility] | | | | | | [facility] | | | | | | MEDICAL | | | | | | CENTER - | | | | | | LABORATORY | | + + + + + + | Calcium | 8.7 | 8.3 - 10.5 | [facility] | | | | | mg/dL | [facility] | | | | | | MEDICAL | | | | | | CENTER - | | | | | | LABORATORY | | + + + + + + | Alkaline | 49 | 40 - 110 IU/L | [facility] | | | Phosphatase | | | [facility] | | | | | | MEDICAL | | | | | | CENTER - | | | | | | LABORATORY | | + + + + + + | AST | 19 | 10 - 42 IU/L | [facility] | | | | | | [facility] | | | | | | MEDICAL | | | | | | CENTER - | | | | | | LABORATORY | | + + + + + + | ALT | 16 | 6 - 45 IU/L | [facility] | | | | | | [facility] | | | | | | MEDICAL | | | | | | CENTER - | | | | | | LABORATORY | | + + + + + + | Bilirubin | 1.1 (H) | 0.2 - 1.0 mg/dL | [facility] | | | Total | | | [facility] | | | | | | MEDICAL | | | | | | CENTER - | | | | | | LABORATORY | | + + + + + + | Total | 6.5 | 6.0 - 7.8 gm/dL | [facility] | | | Protein | | | [facility] | | | | | | MEDICAL | | | | | | CENTER - | | | | | | LABORATORY | | + + + + + + | Albumin | 4.0 | 3.2 - 5.0 gm/dL | [facility] | | | | | | [facility] | | | | | | MEDICAL | | | | | | CENTER - | | | | | | LABORATORY | | + + + + + + | BUN | 18 | 7 - 18 mg/dL | [facility] | | | | | | [facility] | | | | | | MEDICAL | | | | | | CENTER - | | | | | | LABORATORY | | + + + + + + | Creatinine | 0.89 | 0.60 - 1.30 | [facility] | | | | | mg/dL | [facility] | | | | | | [facility]ICAL | | | | | | CENTER - | | | | | | LABORATORY | | + + + + + + | Estimated | >60Comment: For | >60 mL/min/A | [facility] | | | GFR | -Americans, | | [facility] | | | | please multiply the | | MEDICAL | | | | result by 1.210 | | CENTER - | | | | This is an estimated | | LABORATORY | | | | GFR and is based on | | | | | | a standard body | | | | | | mass and serum | | | | | | creatinine | | | | + + + + + + | BUN/Creatin | 20.2 (H) | 12 - 20 | [facility] | | | ine Ratio | | | [facility] | | | | | | [facility]ICAL | | | | | | CENTER - | | | | | | LABORATORY | | + + + + + + | Na | 136 | 136 - 149 mEq/L | [facility] | | | | | | [facility] | | | | | | [facility] | | | | | | CENTER - | | | | | | LABORATORY | | + + + + + + | K | 4.5 | 3.5 - 5.1 mEq/l | [facility] | | | | | [facility] | | | | | | [facility] | | | | | | C[facility] - | | | | | | LABORATORY | | + + + + + + | Cl | 103 | 98 - 109 mEq/l | [facility] | | | | | | [facility] | | | | | | [facility] | | | | | | CENTER - | | | | | | LABORATORY | | + + + + + + | CO2 | 29 | 24 - 31 mEq/L | [facility] | | | | | | [facility] | | | | | | [facility] | | | | | | CENTER - | | | | | | LABORATORY | | + + + + + + | Anion Gap | 8.5 | 6.0 - 17.0 | [facility] | | | | | | [facility] | | | [facility] | | [facility] | | | | | | CENTER - | | | | | | LABORATORY | | + + + + + + + + | Specimen | + + | | + + + + + + + | Performing | Address | City/State/Zipcode | Phone Number | | Organization | | | | + + + + + | [facility] | [address] | [place], [place] | [phone] | | [facility] | | [id number] | | | - LABORATORY | | | | + + + + + | [facility] | [address] | [place], [place] | | | [facility] | | [id number] | | | - LABORATORY | | | | + + + + + Lactate Dehydrogenase (02/09/2011 7:48 AM PDT) + +-------+ + + + | Component | Value | Ref Range | Performed | Pathologist | | | | | At | Signature | + +-------+ + + + | LDH TOTAL | 169 | 91 - 180 IU/L | [facility] | | | | | [facility] | | | | | | MEDICAL | | | | | | CENTER - | | | | | | LABORATORY | | + +-------+ + + + + + | Specimen | + + | | + + + + + + + | Performing | Address | City/State/Zipcode | Phone Number | | Organization | | | | + + + + + | [facility] | [address] | [place], [place] | [phone] | | [facility] | | [id number] | | | - LABORATORY | | | | + + + + + | [facility] | [address] | [place], [place] | | | [facility] | | [id number] | | | - LABORATORY | | | | + + + + + Magnesium (02/09/2011 7:48 AM PDT) + +-------+ + + + | Component | Value | Ref Range | Performed | Pathologist | | | | | At | Signature | + +-------+ + + + | Magnesium | 2.0 | 1.8 - 2.5 mg/dL | [facility] | | | | | [facility] | | | | | | MEDICAL | | | | | | CENTER - | | | | | | LABORATORY | | + +-------+ + + + + + | Specimen | + + | | + + + + + + + | Performing | Address | City/State/Zipcode | Phone Number | | Organization | | | | + + + + + | [facility] | [address] | [place], [place] | [phone] | | [facility] | | [id number] | | | - LABORATORY | | | | + + + + + | [facility] | [address] | [place], [place] | | | [facility] | | [id number] | | | - LABORATORY | | | | + + + + + CBC with Differential (02/09/2011 7:48 AM PDT) + + + + + + | Component | Value | Ref Range | Performed | Pathologist | | | | | At | Signature | + + + + + + | WBC | 6.6 (A) | 4.0 - 11.0 K/uL | [facility] | | | | | | [facility] | | | | | | MEDICAL | | | | | | CENTER - | | | | | | LABORATORY | | + + + + + + | RBC | 3.55 (L) | 4.30 - 5.70 | [facility] | | | | | M/uL | [facility] | | | | | | MEDICAL | | | | | | CENTER - | | | | | | LABORATORY | | + + + + + + | Hemoglobin | 12.4 (L) | 13.5 - 18.0 | [facility] | | | | | gm/dL | [facility] | | | | | | MEDICAL | | | | | | CENTER - | | | | | | LABORATORY | | + + + + + + | Hematocrit | 35.9 (L) | 40.0 - 51.0 % | [facility] | | | | | [facility] | | | | | | [facility]ICAL | | | | | | CENTER - | | | | | | LABORATORY | | + + + + + + | MCV | 101.1 (H) | 83.0 - 101.0 fL | [facility] | | | | | [facility] | | | | | | MEDICAL | | | | | | CENTER - | | | | | | LABORATORY | | + + + + + + | MCH | 35.0 | 28.0 - 35.0 pg | [facility] | | | | | | [facility] | | | | | | MEDICAL | | | | | | CENTER - | | | | | | LABORATORY | | + + + + + + | MCHC | 34.6 | 32.0 - 36.0 | [facility] | | | | | g/dL | [facility] | | | | | | MEDICAL | | | | | | CENTER - | | | | | | LABORATORY | | + + + + + + | RDW-CV | 14.3 | <15.0 % | [facility] | | | | | | [facility] | | | | | | MEDICAL | | | | | | CENTER - | | | | | | LABORATORY | | + + + + + + | Platelet | 155 | 140 - 440 K/uL | [facility] | | | Count | | | [facility] | | | | | | MEDICAL | | | | | | CENTER - | | | | | | LABORATORY | | + + + + + + | % | 81.8 (H) | 45 - 75 % | [facility] | | | Neutrophils | | | [facility] | | | | | | MEDICAL | | | | | | CENTER - | | | | | | LABORATORY | | + + + + + + | % | 6.8 (L) | 20 - 45 % | [facility] | | | Lymphocytes | | | [facility] | | | | | | MEDICAL | | | | | | CENTER - | | | | | | LABORATORY | | + + + + + + | % Monocytes | 9.9 | 4 - 12 % | [facility] | | | | | | [facility] | | | | | | MEDICAL | | | | | | CENTER - | | | | | | LABORATORY | | + + + + + + | % | 1.0 | 0 - 5 % | [facility] | | | Eosinophils | | | [facility] | | | | | | MEDICAL | | | | | | CENTER - | | | | | | LABORATORY | | + + + + + + | % Basophils | 0.5 | 0 - 1 % | [facility] | | | | | | [facility] | | | | | | [facility] | | | | | | CENTER - | | | | | | LABORATORY | | + + + + + + | Absolute | 5.4 | 1.5 - 6.6 K/uL | [facility] | | | Neutrophils | | | [facility] | | | | | | MEDICAL | | | | | | CENTER - | | | | | | LABORATORY | | + + + + + + | Absolute | 0.4 (L) | 0.6 - 3.2 K/uL | [facility] | | | Lymphocytes | | | [facility] | | | | | | MEDICAL | | | | | | CENTER - | | | | | | LABORATORY | | + + + + + + | Absolute | 0.6 | 0.0 - 1.0 K/uL | [facility] | | | Monocytes | | | [facility] | | | | | | MEDICAL | | | | | | CENTER - | | | | | | LABORATORY | | + + + + + + | Absolute | 0.1 | 0.0 - 0.4 K/uL | [facility] | | | Eosinophils | | | [facility] | | | | | | MEDICAL | | | | | | CENTER - | | | | | | LABORATORY | | + + + + + + | Absolute | 0.0 | 0.0 - 0.1 K/uL | [facility] | | | Basophils | | | [facility] | | | | | | MEDICAL | | | | | | CENTER - | | | | | | LABORATORY | | + + + + + + + + | Specimen | + + | | + + + + + + + | Performing | Address | City/State/Zipcode | Phone Number | | Organization | | | | + + + + + | [facility] | [address] | [place] | [phone] | | [facility] | | [address] | | | - LABORATORY | | | | + + + + + | [facility] | [address] | [place], [place] | | | [facility] | | [address], [facility] | | | - LABORATORY | | | | + + + + + CEA (02/02/2011 8:52 AM PDT) + + + + + + | Component | Value | Ref Range | Performed | Pathologist | | | | | At | Signature | + + + + + + | CEA | 3.41Comment: | 0.0 - 10.0 | [facility] | | | | PLEASE NOTE NEW | ng/mL | [facility] | | | | [facility] | | MEDICAL | | | | Testing performed on | | CENTER - | | | | the [employer] | | LABORATORY | | | | Access Analyzer. | | | | | | Results obtained with | | | | | | different assay methods | | | | | | or kits cannot be used | | | | | | interchangeably. | | | | + + + + + + + + | Specimen | + + | | + + + + + + + | Performing | Address | City/State/Zipcode | Phone Number | | Organization | | | | + + + + + | [facility] | [address] | [place] | [phone] | | [facility] | | [address] | | | - LABORATORY | | | | + + + + + | [facility] | [address] | [place], [place] | | | [facility] | | [id number] | | | - LABORATORY | | | | + + + + + Comprehensive Metabolic Panel (02/02/2011 8:52 AM PDT) + + + + + + | Component | Value | Ref Range | Performed | Pathologist | | | | | At | Signature | + + + + + + | Glucose | 85 | 70 - 109 mg/dL | [facility] | | | | | | [facility] | | | | | | MEDICAL | | | | | | CENTER - | | | | | | LABORATORY | | + + + + + + | Calcium | 9.0 | 8.3 - 10.5 | [facility] | | | | | mg/dL | [facility] | | | | | | MEDICAL | | | | | | CENTER - | | | | | | LABORATORY | | + + + + + + | Alkaline | 50 | 40 - 110 IU/L | [facility] | | | Phosphatase | | | [facility] | | | | | | MEDICAL | | | | | | CENTER - | | | | | | LABORATORY | | + + + + + + | AST | 20 | 10 - 42 IU/L | [facility] | | | | | | [facility] | | | | | | MEDICAL | | | | | | CENTER - | | | | | | LABORATORY | | + + + + + + | ALT | 16 | 6 - 45 IU/L | [facility] | | | | | | [facility] | | | | | | MEDICAL | | | | | | CENTER - | | | | | | LABORATORY | | + + + + + + | Bilirubin | 1.1 (H) | 0.2 - 1.0 mg/dL | [facility] | | | Total | | | [facility] | | | | | | MEDICAL | | | | | | CENTER - | | | | | | LABORATORY | | + + + + + + | Total | 6.1 | 6.0 - 7.8 gm/dL | [facility] | | | Protein | | | [facility] | | | | | | MEDICAL | | | | | | CENTER - | | | | | | LABORATORY | | + + + + + + | Albumin | 4.0 | 3.2 - 5.0 gm/dL | [facility] | | | | | | [facility] | | | | | | MEDICAL | | | | | | CENTER - | | | | | | LABORATORY | | + + + + + + | BUN | 14 | 7 - 18 mg/dL | [facility] | | | | | | [facility] | | | | | | MEDICAL | | | | | | CENTER - | | | | | | LABORATORY | | + + + + + + | Creatinine | 0.80 | 0.60 - 1.30 | [facility] | | | | | mg/dL | [facility] | | | | | | MEDICAL | | | | | | CENTER - | | | | | | LABORATORY | | + + + + + + | Estimated | >60Comment: For | >60 mL/min/A | [facility] | | | GFR | -Americans, | | [facility] | | | | please multiply the | | MEDICAL | | | | result by 1.210 | | CENTER - | | | | This is an estimated | | LABORATORY | | | | GFR and is based on | | | | | | a standard body | | | | | | mass and serum | | | | | | creatinine | | | | + + + + + + | BUN/Creatin | 17.5 | 12 - 20 | [facility] | | | ine Ratio | | | [facility] | | | | | | MEDICAL | | | | | | CENTER - | | | | | | LABORATORY | | + + + + + + | Na | 135 (L) | 136 - 149 mEq/L | [facility] | | | | | | [facility] | | | | | | MEDICAL | | | | | | CENTER - | | | | | | LABORATORY | | + + + + + + | K | 4.2 | 3.5 - 5.1 mEq/l | [facility] | | | | | | [facility] | | | | | | MEDICAL | | | | | | CENTER - | | | | | | LABORATORY | | + + + + + + | Cl | 101 | 98 - 109 mEq/l | [facility] | | | | | | [facility] | | | | | | MEDICAL | | | | | | CENTER - | | | | | | LABORATORY | | + + + + + + | CO2 | 28 | 24 - 31 mEq/L | [facility] | | | | | | [facility] | | | | | | MEDICAL | | | | | | CENTER - | | | | | | LABORATORY | | + + + + + + | Anion Gap | 10.2 | 6.0 - 17.0 | [facility] | | | | | | [facility] | | | | | | MEDICAL | | | | | | CENTER - | | | | | | LABORATORY | | + + + + + + + + | Specimen | + + | | + + + + + + + | Performing | Address | City/State/Zipcode | Phone Number | | Organization | | | | + + + + + | [facility] | [address] | [place] | [phone] | | [facility] | | [address] | | | - LABORATORY | | | | + + + + + | [facility] | [address] | [place] | | | [facility] | | [address] [place] [address] | | | - LABORATORY | | | | + + + + + Lactate Dehydrogenase (02/02/2011 8:52 AM PDT) + +-------+ + + + | Component | Value | Ref Range | Performed | Pathologist | | | | | At | Signature | + +-------+ + + + | LDH TOTAL | 164 | 91 - 180 IU/L | [facility] | | | | | | [facility] | | | | | | MEDICAL | | | | | | CENTER - | | | | | | LABORATORY | | + +-------+ + + + + + | Specimen | + + | | + + + + + + + | Performing | Address | City/State/Zipcode | Phone Number | | Organization | | | | + + + + + | [facility] | [address] | [place] | [phone] | | [facility] | | [address] | | | - LABORATORY | | | | + + + + + | [facility] | [address] | [place] | | | [facility] | | [id number] | | | - LABORATORY | | | | + + + + + Magnesium (02/02/2011 8:52 AM PDT) + +-------+ + + + | Component | Value | Ref Range | Performed | Pathologist | | | | | At | Signature | + +-------+ + + + | Magnesium | 2.1 | 1.8 - 2.5 mg/dL | [facility] | | | | | | [facility] | | | | | | MEDICAL | | | | | | CENTER - | | | | | | LABORATORY | | + +-------+ + + + + + | Specimen | + + | | + + + + + + + | Performing | Address | City/State/Zipcode | Phone Number | | Organization | | | | + + + + + | [facility] | [address] | [place] | [phone] | | [facility] | | [address] | | | - LABORATORY | | | | + + + + + | [facility] | [address] | [place] | | | [facility] | | [address], [facility] | | | - LABORATORY | | | | + + + + + CBC with Differential (02/02/2011 8:52 AM PDT) + + + + + + | Component | Value | Ref Range | Performed | Pathologist | | | | | At | Signature | + + + + + + | WBC | 5.4 | 4.0 - 11.0 K/uL | [facility] | | | | | | [facility] | | | | | | MEDICAL | | | | | | CENTER - | | | | | | LABORATORY | | + + + + + + | RBC | 3.59 (L) | 4.30 - 5.70 | [facility] | | | | | M/uL | [facility] | | | | | | MEDICAL | | | | | | CENTER - | | | | | | LABORATORY | | + + + + + + | Hemoglobin | 12.4 (L) | 13.5 - 18.0 | [facility] | | | | | gm/dL | [facility] | | | | | | MEDICAL | | | | | | CENTER - | | | | | | LABORATORY | | + + + + + + | Hematocrit | 35.8 (L) | 40.0 - 51.0 % | [facility] | | | | | | [facility] | | | | | | MEDICAL | | | | | | CENTER - | | | | | | LABORATORY | | + + + + + + | MCV | 99.9 | 83.0 - 101.0 fL | [facility] | | | | | | [facility] | | | | | | MEDICAL | | | | | | CENTER - | | | | | | LABORATORY | | + + + + + + | MCH | 34.5 | 28.0 - 35.0 pg | [facility] | | | | | | [facility] | | | | | | MEDICAL | | | | | | CENTER - | | | | | | LABORATORY | | + + + + + + | MCHC | 34.6 | 32.0 - 36.0 | [facility] | | | | | g/dL | [facility] | | | | | | MEDICAL | | | | | | CENTER - | | | | | | LABORATORY | | + + + + + + | RDW-CV | 14.0 | <15.0 % | [facility] | | | | | | [facility] | | | | | | MEDICAL | | | | | | CENTER - | | | | | | LABORATORY | | + + + + + + | Platelet | 158 | 140 - 440 K/uL | [facility] | | | Count | | | [facility] | | | | | | MEDICAL | | | | | | CENTER - | | | | | | LABORATORY | | + + + + + + | % | 75.0 | 45 - 75 % | [facility] | | | Neutrophils | | | [facility] | | | | | | MEDICAL | | | | | | CENTER - | | | | | | LABORATORY | | + + + + + + | % | 11.3 (L) | 20 - 45 % | [facility] | | | Lymphocytes | | | [facility] | | | | | | MEDICAL | | | | | | CENTER - | | | | | | LABORATORY | | + + + + + + | % Monocytes | 11.5 | 4 - 12 % | [facility] | | | | | | [facility] | | | | | | MEDICAL | | | | | | CENTER - | | | | | | LABORATORY | | + + + + + + | % | 2.2 | 0 - 5 % | [facility] | | | Eosinophils | | | [facility] | | | | | | MEDICAL | | | | | | CENTER - | | | | | | LABORATORY | | + + + + + + | % Basophils | 0.0 | 0 - 1 % | [facility] | | | | | | [facility] | | | | | | MEDICAL | | | | | | CENTER - | | | | | | LABORATORY | | + + + + + + | Absolute | 4.0 | 1.5 - 6.6 K/uL | [facility] | | | Neutrophils | | | [facility] | | | | | | MEDICAL | | | | | | CENTER - | | | | | | LABORATORY | | + + + + + + | Absolute | 0.6 | 0.6 - 3.2 K/uL | [facility] | | | Lymphocytes | | | [facility] | | | | | | MEDICAL | | | | | | CENTER - | | | | | | LABORATORY | | + + + + + + | Absolute | 0.6 | 0.0 - 1.0 K/uL | [facility] | | | Monocytes | | | [facility] | | | | | | MEDICAL | | | | | | CENTER - | | | | | | LABORATORY | | + + + + + + | Absolute | 0.1 | 0.0 - 0.4 K/uL | [facility] | | | Eosinophils | | | [facility] | | | | | | MEDICAL | | | | | | CENTER - | | | | | | LABORATORY | | + + + + + + | Absolute | 0.0 | 0.0 - 0.1 K/uL | [facility] | | | Basophils | | | [facility] | | | | | | MEDICAL | | | | | | CENTER - | | | | | | LABORATORY | | + + + + + + + + | Specimen | + + | | + + + + + + + | Performing | Address | City/State/Zipcode | Phone Number | | Organization | | | | + + + + + | [facility] | [address] | [place], [place] | [phone] | | [facility] | | [address] | | | - LABORATORY | | | | + + + + + | [facility] | [address] | [place], [place] | | | [facility] | | [id number] [place] [address] | | | - LABORATORY | | | | + + + + + CEA (01/26/2011 9:52 AM PDT) + + + + + + | Component | Value | Ref Range | Performed | Pathologist | | | | | At | Signature | + + + + + + | CEA | 2.88Comment: | 0.0 - 10.0 | [facility] | | | | PLEASE NOTE NEW | ng/mL | [facility] | | | | [facility] | | MEDICAL | | | | Testing performed on | | CENTER - | | | | the [employer] | | LABORATORY | | | | Access Analyzer. | | | | | | Results obtained with | | | | | | different assay methods | | | | | | or kits cannot be used | | | | | | interchangeably. | | | | + + + + + + + + | Specimen | + + | | + + + + + + + | Performing | Address | City/State/Zipcode | Phone Number | | Organization | | | | + + + + + | [facility] | [address] | [place] | [phone] | | [facility] | | [address] | | | - LABORATORY | | | | + + + + + | [facility] | [address] | [place], [place] | | | [facility] | | [address] [place] [address] | | | - LABORATORY | | | | + + + + + Comprehensive Metabolic Panel (01/26/2011 9:52 AM PDT) + + + + + + | Component | Value | Ref Range | Performed | Pathologist | | | | | At | Signature | + + + + + + | Glucose | 82 | 70 - 109 mg/dL | [facility] | | | | | | [facility] | | | | | | MEDICAL | | | | | | CENTER - | | | | | | LABORATORY | | + + + + + + | Calcium | 9.1 | 8.3 - 10.5 | [facility] | | | | | mg/dL | [facility] | | | | | | MEDICAL | | | | | | CENTER - | | | | | | LABORATORY | | + + + + + + | Alkaline | 48 | 40 - 110 IU/L | [facility] | | | Phosphatase | | | [facility] | | | | | | MEDICAL | | | | | | CENTER - | | | | | | LABORATORY | | + + + + + + | AST | 20 | 10 - 42 IU/L | [facility] | | | | | | [facility] | | | | | | MEDICAL | | | | | | CENTER - | | | | | | LABORATORY | | + + + + + + | ALT | 16 | 6 - 45 IU/L | [facility] | | | | | | [facility] | | | | | | MEDICAL | | | | | | CENTER - | | | | | | LABORATORY | | + + + + + + | Bilirubin | 1.5 (H) | 0.2 - 1.0 mg/dL | [facility] | | | Total | | | [facility] | | | | | | MEDICAL | | | | | | CENTER - | | | | | | LABORATORY | | + + + + + + | Total | 6.4 | 6.0 - 7.8 gm/dL | [facility] | | | Protein | | | [facility] | | | | | | MEDICAL | | | | | | CENTER - | | | | | | LABORATORY | | + + + + + + | Albumin | 4.0 | 3.2 - 5.0 gm/dL | [facility] | | | | | | [facility] | | | | | | MEDICAL | | | | | | CENTER - | | | | | | LABORATORY | | + + + + + + | BUN | 25 (H) | 7 - 18 mg/dL | [facility] | | | | | | [facility] | | | | | | MEDICAL | | | | | | CENTER - | | | | | | LABORATORY | | + + + + + + | Creatinine | 0.90 | 0.60 - 1.30 | [facility] | | | | | mg/dL | [facility] | | | | | | MEDICAL | | | | | | CENTER - | | | | | | LABORATORY | | + + + + + + | Estimated | >60Comment: For | >60 mL/min/A | [facility] | | | GFR | -Americans, | | [facility] | | | | please multiply the | | MEDICAL | | | | result by 1.210 | | CENTER - | | | | This is an estimated | | LABORATORY | | | | GFR and is based on | | | | | | a standard body | | | | | | mass and serum | | | | | | creatinine | | | | + + + + + + | BUN/Creatin | 27.8 (H) | 12 - 20 | [facility] | | | ine Ratio | | | [facility] | | | | | | MEDICAL | | | | | | CENTER - | | | | | | LABORATORY | | + + + + + + | Na | 139 | 136 - 149 mEq/L | [facility] | | | | | | [facility] | | | | | | MEDICAL | | | | | | CENTER - | | | | | | LABORATORY | | + + + + + + | K | 4.5 | 3.5 - 5.1 mEq/l | [facility] | | | | | | [facility] | | | | | | MEDICAL | | | | | | CENTER - | | | | | | LABORATORY | | + + + + + + | Cl | 106 | 98 - 109 mEq/l | [facility] | | | | | | [facility] | | | | | | MEDICAL | | | | | | CENTER - | | | | | | LABORATORY | | + + + + + + | CO2 | 29 | 24 - 31 mEq/L | [facility] | | | | | | [facility] | | | | | | MEDICAL | | | | | | CENTER - | | | | | | LABORATORY | | + + + + + + | Anion Gap | 8.5 | 6.0 - 17.0 | [facility] | | | | | | [facility] | | | | | | MEDICAL | | | | | | CENTER - | | | | | | LABORATORY | | + + + + + + + + | Specimen | + + | | + + + + + + + | Performing | Address | City/State/Zipcode | Phone Number | | Organization | | | | + + + + + | [facility] | [address] | [place] | [phone] | | [facility] | | [address] | | | - LABORATORY | | | | + + + + + | [facility] | [address] | [place], [place] | | | [facility] | | [id number] | | | - LABORATORY | | | | + + + + + Lactate Dehydrogenase (01/26/2011 9:52 AM PDT) + +-------+ + + + | Component | Value | Ref Range | Performed | Pathologist | | | | | At | Signature | + +-------+ + + + | LDH TOTAL | 152 | 91 - 180 IU/L | [facility] | | | | | | [facility] | | | | | | MEDICAL | | | | | | CENTER - | | | | | | LABORATORY | | + +-------+ + + + + + | Specimen | + + | | + + + + + + + | Performing | Address | City/State/Zipcode | Phone Number | | Organization | | | | + + + + + | [facility] | [address] | [place], [place] | [phone] | | [facility] | | [address] | | | - LABORATORY | | | | + + + + + | [facility] | [address] | [place], [place] | | | [facility] | | [address], [facility] | | | - LABORATORY | | | | + + + + + Magnesium (01/26/2011 9:52 AM PDT) + +-------+ + + + | Component | Value | Ref Range | Performed | Pathologist | | | | | At | Signature | + +-------+ + + + | Magnesium | 2.0 | 1.8 - 2.5 mg/dL | [facility] | | | [facility] | | | | | | [facility] | | | | | | CENTER - | | | | | | LABORATORY | | + +-------+ + + + + + | Specimen | + + | | + + + + + + + | Performing | Address | City/State/Zipcode | Phone Number | | Organization | | | | + + + + + | [facility] | [address] | [place] | [phone] | | [facility] | | [address] | | | - LABORATORY | | | | + + + + + | [facility] | [address] | [place] | | | [facility] | | [address], [facility] | | | - LABORATORY | | | | + + + + + CBC with Differential (01/26/2011 9:52 AM PDT) + + + + + + | Component | Value | Ref Range | Performed | Pathologist | | | | | At | Signature | + + + + + + | WBC | 5.7 | 4.0 - 11.0 K/uL | [facility] | | | | | [facility] | | | | | | [facility]ICAL | | | | | | CENTER - | | | | | | LABORATORY | | + + + + + + | RBC | 3.60 (L) | 4.30 - 5.70 | [facility] | | | | | M/uL | [facility] | | | | | | MEDICAL | | | | | | CENTER - | | | | | | LABORATORY | | + + + + + + | Hemoglobin | 12.4 (L) | 13.5 - 18.0 | [facility] | | | | | gm/dL | [facility] | | | | | | MEDICAL | | | | | | CENTER - | | | | | | LABORATORY | | + + + + + + | Hematocrit | 36.2 (L) | 40.0 - 51.0 % | [facility] | | | | | | [facility] | | | | | | MEDICAL | | | | | | CENTER - | | | | | | LABORATORY | | + + + + + + | MCV | 100.4 | 83.0 - 101.0 fL | [facility] | | | | | | [facility] | | | | | | MEDICAL | | | | | | CENTER - | | | | | | LABORATORY | | + + + + + + | MCH | 34.6 | 28.0 - 35.0 pg | [facility] | | | | | | [facility] | | | | | | MEDICAL | | | | | | CENTER - | | | | | | LABORATORY | | + + + + + + | MCHC | 34.4 | 32.0 - 36.0 | [facility] | | | | | g/dL | [facility] | | | | | | MEDICAL | | | | | | CENTER - | | | | | | LABORATORY | | + + + + + + | RDW-CV | 14.2 | <15.0 % | [facility] | | | | | | [facility] | | | | | | MEDICAL | | | | | | CENTER - | | | | | | LABORATORY | | + + + + + + | Platelet | 160 | 140 - 440 K/uL | [facility] | | | Count | | | [facility] | | | | | | MEDICAL | | | | | | CENTER - | | | | | | LABORATORY | | + + + + + + | % | 76.2 (H) | 45 - 75 % | [facility] | | | Neutrophils | | | [facility] | | | | | | [facility] | | | | | | [facility] - | | | | | | LABORATORY | | + + + + + + | % | 11.8 (L) | 20 - 45 % | [facility] | | | Lymphocytes | | | [facility] | | | | | | [facility] | | | [facility] | | [facility] - | | | | | | LABORATORY | | + + + + + + | % Monocytes | 9.2 | 4 - 12 % | [facility] | | | | | | [facility] | | | | | | [facility] | | | | | | [facility] - | | | | | | LABORATORY | | + + + + + + | % | 2.5 | 0 - 5 % | [facility] | | | Eosinophils | | | [facility] | | | | | | [facility] | | | | | | [facility] - | | | | | | LABORATORY | | + + + + + + | % Basophils | 0.3 | 0 - 1 % | [facility] | | | | | | [facility] | | | | | | [facility] | | | | | | [facility] - | | | | | | LABORATORY | | + + + + + + | Absolute | 4.4 | 1.5 - 6.6 K/uL | [facility] | | | Neutrophils | | | [facility] | | | | | | [facility] | | | | | | [facility] - | | | | | | LABORATORY | | + + + + + + | Absolute | 0.7 | 0.6 - 3.2 K/uL | [facility] | | | Lymphocytes | | | [facility] | | | | | | [facility] | | | | | | [facility] - | | | | | | LABORATORY | | + + + + + + | Absolute | 0.5 | 0.0 - 1.0 K/uL | [facility] | | | Monocytes | | | [facility] | | | | | | [facility] | | | | | | [facility] - | | | | | | LABORATORY | | + + + + + + | Absolute | 0.1 | 0.0 - 0.4 K/uL | [facility] | | | Eosinophils | | | [facility] | | | | | | [facility] | | | | | | [facility] - | | | | | | LABORATORY | | + + + + + + | Absolute | 0.0 | 0.0 - 0.1 K/uL | [facility] | | | Basophils | | | [facility] | | | | | | [facility] | | | | | | [facility]ENTER - | | | | | | LABORATORY | | + + + + + + + + | Specimen | + + | | + + + + + + + | Performing | Address | City/State/Zipcode | Phone Number | | Organization | | | | + + + + + | [facility] | [address] | [place] | [phone] | | [facility] | | [id number] | | | - LABORATORY | | | | + + + + + | [facility] | [address] | [place] | | | [facility] | | [id number] | | | - LABORATORY | | | | + + + + + documented in this encounter Visit Diagnoses Not on filedocumented in this encounter
--- OUTSIDE RECORDS SUMMARY | ~2019-11-13 | XMS | Encounter Summary ---
Demographics + + + | Address | [address] | | | [place] [address] | + + + | Home Phone | | + + + | Preferred Language | Unknown | + + + | Marital Status | | + + + | Denominational Affiliation | EPI | + + + | Race | White | + + + | Ethnic Group | Not or | + + + Author + + + | Author | [facility] | + + + | Organization | [facility] | + + + | Address | Unknown | + + + | Phone | Unavailable | + + + Support + + +---------+ + | Name | Relationship | Address | Phone | + + +---------+ + | Katherine Daniel | ECON | Unknown | | + + +---------+ + Care Team Providers + +------+ + | Care Outside Event Sales Specialist Name | Role | Phone | + +------+ + PCP | Unavailable | + +------+ + Encounter Details +--------+ + + + + | Date | Type | Department | Care Team | Description | +--------+ + + + + | 11/16/ | Office | [facility] | Note, Outpatient | Progress Note | | 2001 | Visit-Trans | MEDICINE | Clinic | [...] as of this encounter Progress Notes Interface, Border Guard In - 03/02/2006 3:02 AM PDTCLINIC DATE: 11/16/2001 OTOLARYNGOLOGY CLINIC SUBJECTIVE: Mr. Daniel returns for a 6-week followup visit. He is concerned today in that he has noticed a tight feeling and some pain in his upper neck as well as a right-sided headache, and he has bilateral tinnitus which he has had for a while, but it seems to be somewhat worse. He is not noticing any pain in his throat, has not had any decrease in his ability to swallow, no hemoptysis, or change in his voice. PHYSICAL EXAMINATION: VITAL SIGNS: His weight is 183 pounds which is down 3 pounds from 6 weeks ago. NECK: Well healed. Palpation of both sides of the neck fails to reveal any adenopathy. HEENT: Ears: Normal pinnae, external auditory canals, and tympanic membranes bilaterally. Intraorally, his tongue and palatal mobility are normal. There are no mucosal lesions noted on the hard palate, upper or lower alveolus, buccal mucosa, floor of mouth, lips, or tongue. I sprayed his nose using phenylephrine and lidocaine and examined with using a flexible scope. The nasal cavity, nasopharynx, oropharynx, hypopharynx, and larynx were all well visualized, and there is no evidence of any disease here. IMPRESSION AND PLAN: Unknown primary head and neck carcinoma. He is now approaching 1 year out from neck dissection. I do not see any obvious evidence of any recurrence, and I reassured him that tinnitus is rarely an indication of recurrence of head and neck carcinoma. We discussed this situation, and I offered him either to come back for another followup in about a month or we could proceed with a CT scan of the neck, but I think that is unlikely to reveal anything as his examination is quite easy. He chose to come back in 1 month, and I will see him at that time. Edis Hatch M.D. [employer] Representative of Otolaryngology [facility] / JODEE [id number] / [id number] / [id number] / Tdocumented in this encounter Plan of Treatment Not on filedocumented as of this encounter Visit Diagnoses Not on filedocumented in this encounter"
--- OUTSIDE RECORDS SUMMARY | ~2019-11-13 | XMS | Encounter Summary ---
Demographics + + + | Address | [address] | | | [place] [address] | + + + | Home Phone | | + + + | Preferred Language | Unknown | + + + | Marital Status | | + + + | Jewish Affiliation | 1069 | + + + | Race | Unknown | + + + | Ethnic Group | Unknown | + + + Author + + + | Author | [facility] | | | and [place] | + + + | Organization | [facility] | | | and [place] | + + + | Address | Unknown | + + + | Phone | Unavailable | + + + Support + + + + + | Name | Relationship | Address | Phone | + + + + + | Daniel Daniel | ECON | [place] | | | | | [address] | | + + + + + | Katherine Daniel | ECON | [address] | | | | | [place] | | | | | [address] | | + + + + + | Katherine Daniel | ECON | [address] | | | | | [place] | | | | | [address] | | + + + + + Care Team Providers + +------+ + | Care Tire Beader Maker Name | Role | Phone | + +------+ + PCP | Unavailable | + +------+ + Encounter Details +--------+ + + + + | Date | Type | Department | Care Team | Description | +--------+ + + + + | 08/08/ | Hospital | [facility] | | | | 2010 - | Encounter | [facility] | | | | | | CENTER [address] | | | | 08/21/ | | [place] | | | | 2010 | | [id number] | | | | | | [phone] | | | +--------+ + + + [...] [place] | | | | | | [address] | | | | | | | | +--------+ + + + + documented as of this encounter Visit Diagnoses Not on filedocumented in this encounter"
--- OUTSIDE RECORDS SUMMARY | ~2019-11-13 | XMS | Clinical Summary ---
Demographics + + + | Address | [address] | | | [place] [address] | + + + | Home Phone | | + + + | Preferred Language | Unknown | + + + | Marital Status | | + + + | Methodist Affiliation | EPI | + + + | Race | White | + + + | Ethnic Group | Not or | + + + Author + + + | Author | [facility] | + + + | Organization | [facility] | + + + | Address | Unknown | + + + | Phone | Unavailable | + + + Support + + +---------+ + | Name | Relationship | Address | Phone | + + +---------+ + | Katherine Daniel | ECON | Unknown | | + + +---------+ + Care Team Providers + +------+ + | Care Fabric Sourcer Name | Role | Phone | + +------+ + | Sander Murphy MD | PCP | | + +------+ + Source Comments YASSINE is fully live on both [facility] and [facility] Allergies Not on File Medications Not on file Active Problems Not on file Social History + +-------+ +--------+------+ | Tobacco [...] recent travel history available. | + + Last Filed Vital Signs Not on file Plan of Treatment + + + + + | Health Maintenance | Due Date | Last Done | Comments | + + + + + | Pneumococcal | | | | | vaccination (1 of 2 | 6 | | | | - PCV13) | | | | + + + + + | Influenza (Flu) | | | | | vaccination (#1) | 9 | | | + + + + + Results Not on filefrom Last 3 Months Insurance + +--------+ +--------+ + +--------+ | Payer | Benefi | Subscriber | Effect | Phone | Address | Type | | | t Plan | ID | vandana | | | | | | / | | Dates | | | | | | Group | | | | | | + +--------+ +--------+ + +--------+ | MEDICARE | MEDICA | xxxxxxxxxx | 06/28/19 | [phone] | [address] | Medica | | | RE A & | | 11-Pre | [address] | [phone] | re | | | B | | sent | | [place] | | | | | | | | [phone] | | + +--------+ +--------+ + +--------+ | [employer] [place] | MUTUAL | [id number] | Effect | [phone] | [phone] | Indemn | | MEDICARE SUPPL | OF | | vandana | 0 | [employer]UAL OF | ity | | | [place] | | for | | [address] [address] | | | | [place]ICA | | all | | [place] | | | | RE | | dates | | [address] | | | | SUPPL | | | | | | + +--------+ +--------+ + +--------+ + +--------+ +--------+ + + | Guarantor Name | Accoun | Relation to | Date | Phone | Billing Address | | | t Type | Patient | of | | | | | | | | | | + +--------+ +--------+ + + | David Daniel | Person | Self | [birth year] | [address] | | | al/Fam | | 1940 | [phone] | [place] [address] | | | sid | | | 5 (Home) | | + +--------+ +--------+ + +"
--- OUTSIDE RECORDS SUMMARY | ~2019-11-13 | XMS | Clinical Summary ---
Demographics + + + | Address | [address] | | | [place] [address] | + + + | Home Phone | | + + + | Preferred Language | Unknown | + + + | Marital Status | | + + + | Baptist Affiliation | 1069 | + + + | Race | Unknown | + + + | Ethnic Group | Unknown | + + + Author + + + | Author | [facility] | | | and [place] | + + + | Organization | [facility] | | | and [place] | + + + | Address | Unknown | + + + | Phone | Unavailable | + + + Support + + + + + | Name | Relationship | Address | Phone | + + + + + | Daniel Daniel | ECON | [place] | | | | | [address] | | + + + + + | Katherine Daniel | ECON | [address] | | | | | [place] | | | | | [address] | | + + + + + | Katherine Daniel | ECON | [address] | | | | | [place] | | | | | [address] | | + + + + + Care Team Providers + +------+ + | Care Loan Examiner Name | Role | Phone | + +------+ + | Tracie Cm MD | PCP | | + +------+ + Allergies No Known Allergies Medications + + + +---------+------+------+-------+ | Medication | Sig | Dispensed | Refills | Star | End | Statu | | | | | | t | Date | s | | | | | | Date | | | + + + +---------+------+------+-------+ | traZODone | Take 150 mg by mouth | | 0 | | | Activ | | (DESYREL) 150 MG | nightly. | | | | | e | | tablet | | | | | | | + + + +---------+------+------+-------+ | insulin glargine | Inject 18 Units | | 0 | | | Activ | | (LANTUS) 100 | under the skin. | | | | | e | | units/mL injection | | | | | | | | (vial) | | | | | | | + + + +---------+------+------+-------+ | VENLAFAXINE HCL PO | Take 150 mg by mouth | | 0 | | | Activ | | | Daily. | | | | | e | + + + +---------+------+------+-------+ | ibuprofen | Take 600 mg by mouth | | 0 | | | Activ | | (ADVIL,MOTRIN) 600 | every 6 hours as | | | | | e | | MG tablet | needed for Pain. | | | | | | + + + +---------+------+------+-------+ | | Take 1 tablet by | | 0 | | | Activ | | HYDROcodone-acetamin | mouth every 6 hours | | | | | e | | ophen (NORCO) | as needed for Pain. | | | | | | | 7.5-325 mg per | | | | | | | | tablet | | | | | | | + + + +---------+------+------+-------+ | nitroglycerin | Place 0.4 mg under | | 0 | | | Activ | | (NITROSTAT) 0.4 mg | the tongue every 5 | | | | | e | | SL tablet | minutes as needed | | | | | | | | for Chest pain. | | | | | | + + + +---------+------+------+-------+ | Blood Glucose | by Other route. | | 0 | | | Activ | | Monitoring Suppl | | | | | | e | | (BLOOD GLUCOSE | | | | | | | | MONITOR SYSTEM) | | | | | | | | w/Device KIT | | | | | | | + + + +---------+------+------+-------+ | potassium chloride | Take 1 tablet by | | 0 | 07/1 | | Activ | | (KLOR-CON) 10 MEQ | mouth daily as | | | 0/20 | | e | | ER tablet | needed. Take with | | | 19 | | | | | Torsemide only as | | | | | | | | needed. | | | | | | + + + +---------+------+------+-------+ | torsemide | Take 1 tablet by | | 0 | 07/1 | | Activ | | (DEMADEX) 20 mg | mouth daily as | | | 0/20 | | e | | tablet | needed. | | | 19 | | | + + + +---------+------+------+-------+ | insulin lispro | Inject 7 Units into | | 0 | | | Activ | | (HUMALOG KWSTEFANIEPEN) | the skin 3 (three) | | | | | e | | 100 units/mL | times daily before | | | | | | | injection (pen) | meals. | | | | | | + + + +---------+------+------+-------+ | ONE TOUCH ULTRA | | | 0 | 06/1 | | Activ | | TEST strip | | | | 9/20 | | e | | | | | | 19 | | | + + + +---------+------+------+-------+ | baclofen | Take 10 mg by mouth | | 0 | | | Activ | | (LIORESAL) 10 mg | Twice daily as | | | | | e | | tablet | needed. | | | | | | + + + +---------+------+------+-------+ | hydrALAZINE | Take 1 tablet by | 180 | 3 | 12/0 | 12/0 | Activ | | (APRESOLINE) 50 MG | mouth 2 times daily. | tablet | | 6/20 | 5/20 | e | | tablet | | | | 19 | 20 | | + + + +---------+------+------+-------+ | lisinopril | Take 1 tablet by | 180 | 3 | 12/3 | 12/2 | Activ | | (PRINIVIL, ZESTRIL) | mouth 2 times daily. | tablet | | 0/20 | 9/20 | e | | 20 mg tablet | | | | 19 | 20 | | + + + +---------+------+------+-------+ | carvedilol (COREG) | Take 1 tablet by | 180 | 3 | 04/0 | 04/0 | Activ | | 25 mg tablet | mouth 2 times daily | tablet | | 6/20 | 6/20 | e | | | (with breakfast & | | | 20 | 21 | | | | dinner). | | | | | | + + + +---------+------+------+-------+ | furosemide (LASIX) | Take 20 mg by mouth | | 0 | | | Activ | | 20 mg tablet | 2 times daily. | | | | | e | + + + +---------+------+------+-------+ | spironolactone | Take 50 mg by mouth | | 0 | | | Activ | | (ALDACTONE) 50 mg | Daily. | | | | | e | | tablet | | | | | | | + + + +---------+------+------+-------+ | gabapentin | Take 300 mg by mouth | | 0 | | | Activ | | (NEURONTIN) 300 mg | 3 times daily. | | | | | e | | capsule | | | | | | | + + + +---------+------+------+-------+ | amLODIPine | Take 5 mg by mouth. 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 | | Medtronic Praveen II SHEET METAL WORKER HELPER-D ICD | | | | Last Assessment & Plan: | | Normal function. | + + + + + | Diabetes mellitus, type II | 08/10/2011 | + + + + + | Overview: Overview: | | [id number] | | [facility] [id number] Decision | + + + + + | Dyslipidemia | 08/10/2011 | + + + | Essential hypertension | 08/10/2011 | + + + | Ischemic cardiomyopathy | 08/10/2011 | + + + + + | Overview: Last Assessment & Plan: Severe MR by last echo. Was | | seeing Dr. Serra, wishes to establish care with [place] | | ballpoint pen cartridge tester. Will refer to cardiology and try to arrange his | | appointment for when he is in [place] for his generator | | change.Last Assessment & Plan: Severe MR by last echo. Was seeing | | Dr. Serra, wishes to establish care with [place] ballpoint pen cartridge tester. | | Will refer to cardiology and try to arrange his appointment for | | when he is in [place] for his generator change. | + + Resolved Problems + + + + | Problem | Noted | Resolved | | | Date | Date | + + + + | Atrial flutter | 11/18/19 | | | | 17 | 9 | + + + + + + | Overview: Overview: 10/21/2007 patient underwent typical | | atrial flutter ablation by Sander De Leon M.D.10/21/2007 patient | | underwent typical atrial flutter ablation by Sander De Leon M.D. 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 | 09/15/19 | | | failure | 17 | 9 | + + + + | Coronary atherosclerosis | 08/10/19 | | | | 12 | 9 | + + + + Encounters +--------+ + + + + | Date | Type | Specialty | Care Team | Description | +--------+ + + + + | 11/08/ | Telephone | Cardiology | Des Bates, | Medication Question | | 2019 | | | MD | (Torsemide) | +--------+ + + + + | 11/07/ | Office | Cardiology | Des Bates, | Ischemic | | 2019 | Visit | | MD | cardiomyopathy | | | | | | (Primary Dx); | | | | | | Non-rheumatic mitral | | | | | | regurgitation; | | | | | | Chronic diastolic | | | | | | congestive heart | | | | | | failure (HCC); | | | | | | Coronary artery | | | | | | disease of bypass | | | | | | graft of reno-sparks | | | | | | heart [...] | | | | clip implantation | +--------+ + + + + | 10/01/ | Refill | Cardiology | Des Bates, | Medication Refill | | 2019 | | | MD | (Carvedilol) | +--------+ + + + + | 09/11/ | Telephone | Cardiology | Clau Avila | CHF Management | | 2019 | | | YARA Jamison | | +--------+ + + + + | 09/06/ | Procedure | Cardiology | | Biventricular ICD | | 2019 | visit | | | (implantable | | | | | | cardioverter-defibri | | | | | | llator) in place | | | | | | (Primary Dx) | +--------+ + + + + from Last 3 Months Family History + + +------+ + | Medical History | Relation | Name | Comments | + + +------+ + | Prostate cancer | Father | | | + + +------+ + | Heart disease | Mother | | | + + +------+ + + +------+ + + | Relation | Name | Status | Comments | + +------+ + + | Father | | | | + +------+ + + | Father | | | | + +------+ + + | Mother | | | | + +------+ + + | Mother | | | | + +------+ + + Social History + +-------+ +--------+------+ [...] | + + Last Filed Vital Signs + + + [...] + + + + | Temperature | 36.9 C (98.5 F) | 04/18/2018 2:50 PM | | | | | PDT | | + + + + + | Respiratory Rate | 16 | 04/18/2018 2:50 PM | | | | | PDT [...] | | + + + + + Plan of Treatment +--------+ + + + + | Date | Type | Specialty | Care Team | Description | +--------+ + + + + | 12/18/ | Procedure | Cardiology | | | | 2019 | visit | | | | +--------+ + + + + | 03/20/ | Office | Cardiology | Des Baets, | | | 2019 | Visit | | MD Aamir YOON | | | | | | [place] | | | | | | [id number] | | | | | | | | +--------+ + + + + + + + + + | Health Maintenance | Due Date | Last Done | Comments | + + + + + | Vaccine: | | | | | Dtap/Tdap/Td (1 - | 2 | | | | Tdap) | | | | + + + + + | Diabetic Eye Exam | | | | | | 9 | | | + + + + + | Diabetic Foot Exam | | | | | | 9 | | | + + + + + | Hemoglobin A1c | | | | | Screening | 9 | | | + + + + + | Vaccine: Zoster (1 | | | | | of 2) | 1 | | | + + + + + | Vaccine: | | | | | Pneumococcal 65+ (1 | 6 | | | | of 2 - PCV13) | | | | + + + + + | Adult Annual | | | | | Wellness Visit | 9 | | | + + + + + | Statin Therapy | | | | | (optimal intensity) | 9 | | | + + + + + | Vaccine: Influenza | | | | | (Season Ended) | 0 | | | + + + + + Procedures + +--------+ + + + | [...] | + +--------+ + + + | DEVICE | Routin | 09/06/2019 | Biventricular ICD | Results for this | | INTERROGATION- | e | 8:00 AM | (implantable | procedure are in the | | REMOTE | | PDT | cardioverter-defibri | results section. | | | | | llator) in place | | + +--------+ + + + from Last 3 Months Results ECG 12 lead (11/08/2019 3:16 PM [...] | | | | | ECGConfirmed by VICTOR M | | | | | | DES VELA ([id number]) on | | | | | | [...] | | | + +---------+ + + Device Interrogation - Remote (09/06/2019 8:00 AM PDT) + + + | Narrative | Performed At | + + + | Clark Nicole | [facility] | | YARA Arvizu 09/07/2019 3:11 PMICD REMOTE INTERROGATION REPORT | | | Name: David Clemente Fredy PCP: Tracie Cm MD : 1940MRN: | | | [id number] Primary cardiology provider: Des Bates Primary | | | electrophysiology provider: Alireza Urbina Device crimping press operator: | | | Medtronic Device type: Biventricular Battery Longevity: 3 years RA | | | Pacin.2% RV Pacin.2%BiV Pacin.7% INTERROGATION | | | RESULTS:Please see the full interrogation report attached Known | | | history of atrial flutter or atrial fibrillation: NoCurrent | | | antithrombotic therapy including: N/A Since last remote on 12/05/18: | | | Mode switches: None. VT/VF Detections: None. Lead function: Lead | | | impedance and threshold value trends have been reviewed and are | | | acceptable based on most recent evaluation. CHF: Congestive heart | | | failure parameters and trends have been reviewed and are unstable, CHF | | | team notified Follow up: The next scheduled interrogation will be on | | | 09/26/2019 in the cardiac device clinic as his last in-office was on | | | 09/20/18. Additional comments: None. IMPRESSION:1. Normal ICD | | | function.2. No atrial fibrillation/flutter noted.3. No VT/VF therapies | | | have been given since the last interrogation. Testing reviewed by: | | | Clark Arvizu RN | | | | | |INTERROGATION RESULTS: | | |Please see the full interrogation report attached | | | | | |Known history of atrial flutter or atrial fibrillation: No | | |Current antithrombotic therapy including: N/A | | | | | |Since last remote on 12/05/18: | | | | | |Mode switches: None. | | | | | |VT/VF Detections: None. | | | | | |Lead function: Lead impedance and threshold value trends have | | |been reviewed and are acceptable based on most recent evaluation. | | | | | |CHF: Congestive heart failure parameters and trends have been | | |reviewed and are unstable, CHF team notified | | | | | |Follow up: The next scheduled interrogation will be on 09/26/2019 | | |in the cardiac device clinic as his last in-office was on | | |09/20/18. | | | | | |Additional comments: None. | | | | | |IMPRESSION: | | |1. Normal ICD function. | | |2. No atrial fibrillation/flutter noted. | | |3. No VT/VF therapies have been given since the last | | |interrogation. | | | | | |Testing reviewed by: Clark Arvizu RN | | + + + + +---------+ + + | Performing | Address | City/State/Zipcode | Phone Number | | Organization | | | | + +---------+ + + | [facility] | | | | + +---------+ + + from Last 3 Months Insurance + +--------+ +--------+ +---------+--------+ | Payer | Benefi | Subscriber | Effect | Phone | Address | Type | | | t Plan | ID | vandana | | | | | | / | | Dates | | | | | | Group | | | | | | + +--------+ +--------+ +---------+--------+ | MEDICARE | MEDICA | [id number] | 06/28/19 | [phone] | | Medica | | | RE | | 11-Pre | 5 | | re | | | PART A | | sent | | | | | | AND B | | | | | | + +--------+ +--------+ +---------+--------+ | [employer] [place] | MUTUAL | [id number] | | [phone] | | Indemn | | | OF | | 015-Pr | 0 | | ity | | | [place] | | esent | | | | + +--------+ +--------+ +---------+--------+ | MEDICARE | MEDICA | [id number] | 06/28/19 | [phone] | | Medica | | | RE | | 11-Pre | 5 | | re | | | PART A | | sent | | | | | | AND B | | | | | | + +--------+ +--------+ +---------+--------+ | [employer] [place] | MUTUAL | [id number] | | [phone] | | Indemn | | | AND | | 015-Pr | 0 | | ity | | | [place] | | esent | | | | | | [place] | | | | | | | | MDCR | | | | | | | | SUPPL | | | | | | + +--------+ +--------+ +---------+--------+ + +--------+ +--------+ + + | Guarantor [...] | | al/Fam | | 1940 | [phone] | [place] [address] | | | sid | | | 5 (Home) | | + +--------+ +--------+ + + | David Daniel | Person | Self [birth year] | [address] | | | al/Fam | | 1940 | [phone] | [place] [address] | | | sid | | | 5 (Home) | | | | | | | [phone] | | | | | | | 4 (Work) | | + +--------+ +--------+ + + Advance Directives + + + + + | Type | Date Recorded | Patient | Explanation | | | | Industrial Maintenance Electrician | | + + + + + | Power of | | | | | Sales Representative Public Utilities | | | | + + + + + | Advance | | | | | Directive | | | | + + + + +
--- OUTSIDE RECORDS SUMMARY | ~2019-11-13 | XMS | Encounter Summary ---
Demographics + + + | Address | [address] | | | [place] [address] | + + + | Home Phone | | + + + | Preferred Language | Unknown | + + + | Marital Status | | + + + | [employer] Affiliation | 1069 | + + + | Race | Unknown | + + + | Ethnic Group | Unknown | + + + Author + + + | Author | [facility] | | | and [place] | + + + | Organization | [facility] | | | and [place] | + + + | Address | Unknown | + + + | Phone | Unavailable | + + + Support + + + + + | Name | Relationship | Address | Phone | + + + + + | Daniel Daniel | ECON | [place] | | | | | [address] | | + + + + + | Katherine Daniel | ECON | [address] | | | | | [place] | | | | | [address] | | + + + + + | Katherine Daniel | ECON | [address] | | | | | [place] | | | | | [address] | | + + + + + Care Team Providers + +------+ + | Care Outer Diameter Technician Name | Role | Phone | + +------+ + | Tracie Cm MD | PCP | | + +------+ + Encounter Details +--------+ + + + + | Date | Type | Department | Care Team | Description | +--------+ + + + + | 05/06/ | Imaging | [facility] | Provider, | | | 2018 | Exam | [facility] | [address] | | | | | [address] | [address] | | | | | [address] | [place] [address] | | | | | [place] [address] | | | | | | [phone] | | | +--------+ + + + [...] | | | | | [place], [place] | | | | | | [address] | | | | | | | | +--------+ + + + + documented as of this encounter Procedures + +--------+ + + + | Procedure Name | Priori | Date/Time | Associated Diagnosis | Comments | | | ty | | | | + +--------+ + + + | XR LUMBAR SPINE 2 OR | Routin | 03/20/2018 | | Results for this | | 3 VW | e | 4:25 PM | | procedure are in the | | | | PDT | | results section. | + +--------+ + + + documented in this encounter Results XR Lumbar Spine 2 or 3 Vw (03/20/2018 4:25 PM PDT) + + | Specimen | + + | | + + + + + | Narrative | Performed At | + + + | External films for comparison only | [facility] | | | | | No results will be in the chart. | | + + + + +---------+ + + | Performing | Address | City/State/Zipcode | Phone Number | | Organization | | | | + +---------+ + + | [facility] | | | | + +---------+ + + documented in this encounter Visit Diagnoses Not on filedocumented in this encounter"
--- OUTSIDE RECORDS SUMMARY | ~2019-11-13 | XMS | Encounter Summary ---
Demographics + + + | Address | [address] | | | [place] [address] | + + + | Home Phone | | + + + | Preferred Language | Unknown | + + + | Marital Status | | + + + | Jew Affiliation | [id number] | + + + | Race | Unknown | + + + | Ethnic Group | Unknown | + + + Author + + + | Author | [facility] | | | and [place] | + + + | Organization | [facility] | | | and [place] | + + + | Address | Unknown | + + + | Phone | Unavailable | + + + Support + + + + + | Name | Relationship | Address | Phone | + + + + + | Daniel Daniel | ECON | [place] | | | | | [phone] | | + + + + + | Katherine Daniel | ECON | [address] | | | | | [place] | | | | | [address] | | + + + + + | Katherine Daniel | ECON | [address] | | | | | [place] | | | | | [address] | | + + + + + Care Team Providers + +------+ + | Care Fourth Grade Teacher Name | Role | Phone | + +------+ + PCP | Unavailable | + +------+ + Encounter Details +--------+ + + + + | Date | Type | Department | Care Team | Description | +--------+ + + + + | 03/24/ | Hospital | [facility] | Cali Alatorre, | | | 2010 - | Encounter | MED [facility] | [address] | | | | | D [address] | [place] | | | [birth year]/ | | [place] | [address] | | | 2010 | | [address] | [phone] | | | | | [phone] | | | +--------+ + + + [...] encounter Progress Notes Rodger Gu MD - 02/26/2011 1:16 AM PDTPROGRESS NOTE: 03/24/2011 IDENTIFYING STATEMENT: Papo Daniel (Fritz) is a 70 year old man from [facility] on with recurrent squamous cell carcinoma [...] origin. 3. Initial management was at the [facility] in [place] (also known as the [facility] in [place], [place]). Treatments included intravenous high-dose vitamin C. 4. On June 06, 2002, he developed recurrent palpable lymphadenopathy in the left side of the neck that was biopsied and confirmed recurrence of squamous cell carcinoma. 5. Between 17 08 and 2003, he received intravenous chemotherapy at the [facility] in [place], [place], including insulin potentiation therapy. 6. He traveled to the [facility] where he received additional insulin potentiation therapy and intralesional injection of chemotherapy between 2003 and 2004. 7. He then cross ed over to naturopathic treatment following the Oliver regimen. 8. In December 2007, he develo ped progressive submental lymphadenopathy that was confirmed to be malignant by CT PET scan February 23, 2009. 9. On March 21, 2009, he began therapy the [facility] with sodium phenylbutyrat e, Rapamune, and oral Xeloda chemotherapy. He continued on the treatment plan with vari ous doses and schedules with stable submental lymphadenopathy until September 25, 2009. 10. He cros sed over to Vectibix chemotherapy September 25, 2009 through January 29, 2010. Repeat CT scan on February 07, 2010 at [facility] in [place], [place] demonstrated progress ion of disease with [...] a consultation with Dr. Lennon at the [facility] in [place], [place], who recommended palliative radiation therapy. He went on to receive 3000 centigray in 10 fractions limited only to the submental metastasis between July 292010 and August 25, 2010. Treatment plan was entirely for palliation of bleeding from his s ubmental metastasis and he returned promptly to his alternative medical regimen after completi ng his radiation therapy treatment plan. 13. On September 24, 2010 one month after completing his radiation therapy treatment plan, he returned to see Dr. Silas German at the [facility] in [place], [place], who noted significant decrease in the size of the submental mass. He continued on al ternative medical regimens until January 01, 2011 when he returned to the [facility] in [place], [place] and was evaluated by Dr. Bryant Navas, who note d multiple palpable bilateral cervical lymph nodes. Dr. Bryant Navas has recommended a more definitive combined modality treatment approach to his recurrent head and neck cancer with 7000 centigray given concurrently with systemic chemotherapy. CHIEF COMPLAINT: Rosas returned to the clinic on March 24 with his , Katherine, for o ngoing follow-up three weeks after completing combined modality therapy for his recurrent h ead and neck cancer. REVIEW OF SYSTEMS: CONSTITUTIONAL: Appetite is improving. He is now eating three meals a day. Nausea has r esolved on using routine Reglan and Ativan. Denies high fever, chills, weight loss, or nig ht sweats. Fatigue has resolved. EAR, NOSE, MOUTH, THROAT: Swallowing function is improving greatly. Last night he had a large meal of salmon and mashed potatoes. CARDIOVASCULAR: Denies shortness of breath, dyspnea on [...] the full dictate d note dated January 20 2011, which is reviewed and unchanged. CURRENT MEDICATIONS: Caphosol oral solution one unit dose orally four times a day Coreg 3.75 mg orally twice da sid Lasix 20 mg orally daily Lantus insulin 10-20 units subcutaneously at bedtime Lispro insulin 5-7 units subcutaneously three times a day before meals Lisinopril 20 mg or ally twice daily Oxycodone 5 mg as needed Trazodone 50 mg orally at bedtime Reglan 10 mg orally three times a day before meals and in the evening with a snack Durages ic 25 mcg/hr patch topical, change every 72 hours ALLERGIES: No known drug allergies. PHYSICAL EXAMINATION: Weight is 74.3 kg, which is up 0.3 kg. Blood pressure is 118/64, p ulse 67, temperature 36.8 degrees Celsius. Oxygen saturation is 96% on room air. EYES: Conjunctivae clear. Sclerae anicteric. ENMT: Mucous membranes are moist. There is mild lingual thrush. Face is notable for mil d facial edema. CARDIOVASCULAR: Regular rate and rhythm. Normal S1 and S2 without murmur, gallop, or rub . LUNGS: Good air movement bilaterally. No rhonchi, wheeze, or rales. SKIN: No petechiae, ecchymoses, or rash. EXTREMITIES: No cyanosis, clubbing, or edema. NEUROLOGIC: Alert and oriented times three. Face symmetric. Voice articulate. Station and gait within normal limits. STUDIES: Hemoglobin is 10.7, hematocrit 31.8, platelets 185,000, white count 3400. Absol [place] neutrophil count is 2300. Comprehensive metabolic panel is notable for slightly low pr otein at 5.8. However, his albumin is normal at 3.3. Magnesium is 1.5, up from 1.2. Gluc ose is 210, consistent with history of diabetes. Otherwise, metabolic panel is within norm al limits. ASSESSMENT: oRsas is recovering from combined modality therapy for recurrent head and nec k cancer. At this point, he feels confident that he can maintain his hydration status with out IV fluids. Therefore, we will cancel any outstanding orders for intravenous fluids and he will return to the [facility] in one week to follow-up with Dr. Cali Alatorre in [facility]. Follow-up in medical oncology will be open. CC: Dr. 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 CHIEF COMPLAINT: Rosas returned to the clinic on March 23, 2011 for ongoing supportiv e care following combined modality therapy for his recurrent head and neck cancer. REVIEW OF SYSTEMS: He denies fatigue or pain. Denies nausea or vomiting, high fever, chi lls, diarrhea, or constipation. VITAL SIGNS: Blood pressure is 124/70, pulse 74, respiratory rate 16, temperature 37 degr ees Celsius. PROCEDURE: Peripheral IV was established and he received 10 mg of intravenous Reglan, one milligram of intravenous Ativan, and 1000 cc of normal saline over 90 minutes without adver se effects. PLAN: He will return to see me tomorrow for clinical and laboratory follow-up. CC: Dr. Ion Murphy <Electronically Signed by Rodger Gu MD> 03/26/11 1056 Rodger Gu MD - 02/26/2011 1:16 AM PDTPROGRESS NOTE: 03/20/2011 IDENTIFYING STATEMENT: Papo Daniel (Fritz) is a 70 year old man from [facility] on with recurrent squamous cell carcinoma [...] origin. 3. Initial management was at the [facility] in [place] (also known as the [facility] in [place], [place]). Treatments included intravenous high-dose vitamin C. 4. On June 06, 2002, he developed recurrent palpable lymphadenopathy in the left side of the neck that was biopsied and confirmed recurrence of squamous cell carcinoma. 5. Between 17 08 and 2003, he received intravenous chemotherapy at the [facility] in [place], [place], including insulin potentiation therapy. 6. He traveled to the [facility] where he received additional insulin potentiation therapy and intralesional injection of chemotherapy between 2003 and 2004. 7. He then cross ed over to naturopathic treatment following the Oliver regimen. 8. In December 2007, he develo ped progressive submental lymphadenopathy that was confirmed to be malignant by CT PET scan February 23, 2009. 9. On March 21, 2009, he began therapy the [facility] with sodium phenylbutyrat e, Rapamune, and oral Xeloda chemotherapy. He continued on the treatment plan with vari ous doses and schedules with stable submental lymphadenopathy until September 25, 2009. 10. He cros sed over to Vectibix chemotherapy September 25, 2009 through January 29, 2010. Repeat CT scan on February 07, 2010 at [facility] in [place], [place] demonstrated progress ion of disease with [...] a consultation with Dr. Lennon at the [facility] in [place], [place], who recommended palliative radiation therapy. He went on to receive 3000 centigray in 10 fractions limited only to the submental metastasis between July 292010 and August 25, 2010. Treatment plan was entirely for palliation of bleeding from his s ubmental metastasis and he returned promptly to his alternative medical regimen after completi ng his radiation therapy treatment plan. 13. On September 24, 2010 one month after completing his radiation therapy treatment plan, he returned to see Dr. Silas German at the [facility] in [place], [place], who noted significant decrease in the size of the submental mass. He continued on al ternative medical regimens until January 01, 2011 when he returned to the [facility] in [place], [place] and was evaluated by Dr. Bryant Navas, who note d multiple palpable bilateral cervical lymph nodes. Dr. Bryant Navas has recommended a more definitive combined modality treatment approach to his recurrent head and neck cancer with 7000 centigray given concurrently with systemic chemotherapy. CHIEF COMPLAINT: Rosas returned to the clinic on March 20, 2011 for follow-up after t reatment of his recurrent head and neck cancer. INTERVAL HISTORY: Rosas has completed a radiation therapy treatment plan that included a total dose of 6996 centigray given over 33 fractions over 45 elapsed calendar days January through March 12, 2011 to the base of the tongue and regional lymph nodes. Haydee tment was given concurrently with six consecutive weeks of cisplatin at 30 mg/m2 January 26, 2011 through March 03, 2011. REVIEW OF SYSTEMS: CONSTITUTIONAL: Positive for anorexia and weight loss. Denies fever or chills. Positive for fatigue. Denies nausea, vomiting, or night sweats. EAR, NOSE, MOUTH, THROAT: Positive for progressive odynophagia, although this has improve d substantially since initiating narcotic therapy in the form of Duragesic 25 mcg/hr patch. CARDIOVASCULAR: Denies shortness of breath, dyspnea on exertion, chest pain, palpitations , or orthopnea. RESPIRATORY: Denies cough, hemoptysis, or sputum production. GASTROINTESTINAL: Positive for epigastric distress secondary to inability to swallow. Denies melena or bright red blo od per rectum. GENITOURINARY: Denies hematuria or dysuria. MUSCULOSKELETAL: Positive for diffuse arthralgia and myalgia. NEUROLOGIC: Denies headache , visual changes, or numbness/tingling of the extremities. ENDOCRINE: Denies peripheral ed pallavi or heat/cold intolerance. HEMATOLOGIC: Denies spontaneous bruising or bleeding. PAST MEDICAL HISTORY, FAMILY HISTORY, SOCIAL HISTORY, HABITS: Please see the full dictate d note dated January 20, 2011, which is reviewed and unchanged. CURRENT MEDICATIONS: Caphosol oral solution one unit dose orally four times a day Coreg 3.75 mg orally twice da sid Lasix 20 mg orally daily Lantus insulin 10-20 units subcutaneously at bedtime Lispro insulin 5-7 units subcutaneously three times a day before meals Lisinopril 20 mg or ally twice daily Oxycodone 5 mg as needed Trazodone 50 mg orally at bedtime Reglan 10 mg orally three times a day before meals and in the evening with a snack Durages ic 25 mcg/hr patch topical, change every 72 hours ALLERGIES: No known drug allergies. PHYSICAL EXAMINATION: Weight is 74.3 kg, which is down 3.4 kg. Blood pressure is 159/88, pulse 104, temperature 37.4 degrees Celsius. Oxygen saturation is 96% on room air. EYES: Conjunctivae clear. Sclerae anicteric. ENMT: Oropharynx free of lesions, mucous membranes moist. CARDIOVASCULAR: Regular rate and rhythm. Normal S1 and S2 without murmur, gallop, or rub . LUNGS: Good air movement bilaterally. No rhonchi, wheeze, or rales. ABDOMEN: Soft, nontender, nondistended, with normoactive bowel sounds. No hepatomegaly. No splenomegaly. No palpable masses. No ascites. LYMPH NODES: No cervical, supraclavicular, axillary, or inguinal lymphadenopathy. MUSCULOSKELETAL: No joint tenderness or swelling. SKIN: Moist desquamation along the right lateral neck along the border with the superior supraclavicular area is decreasing incrementally. EXTREMITIES: No cyanosis, clubbing, or edema. NEUROLOGIC: Alert and oriented times three. Face symmetric. Voice articulate. Station and gait within normal limits. STUDIES: Hemoglobin is 10.4, hematocrit 30%, white count 2800, absolute neutrophil count 2000, platelet count 126,000. Comprehensive metabolic panel is notable for BUN 14 and crea tinine 0.67. Potassium is 3. The rest of his metabolic panel is notable for albumin of 3. 5 and slightly low protein of 5.8 with lower limit of normal 6. ASSESSMENT: Rosas is continuing to experience anorexia and weight loss due to odynophagia from his combined modality therapy for head and neck cancer. To prevent complications fro m dehydration, Rosas will receive intravenous fluids in the clinic today. He will receive additional fluids over the weekend in the infusion center. He will then [facility] on Wednesday for additional fluids. I will reassess him on March 24, 2 011. PROCEDURE: He received 10 mg of intravenous Reglan, one milligram of intravenous Ativan, a nd 1000 cc of normal saline over 90 minutes without adverse effects. I had along discussion today with Rosas's , Katherine, who has been very supportive of his care. We both agreed that Rosas would continue with Reglan on a regular scheduled basis b ut increase his use of Ativan to treat p.r.n. nausea. CC: Dr. 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 CHIEF COMPLAINT: Rosas returned to the clinic on March 16, 2011 for follow-up after c ompleting treatment for recurrent head and neck cancer. REVIEW OF SYSTEMS: CONSTITUTIONAL: Positive for nausea, vomiting, and anorexia. He has had no weight loss. Denies high fever or chills. Denies night sweats. Positive for fatigue. EAR, NOSE, MOUTH , THROAT: Positive for odynophagia rated at 7 out of 10. Positive for dysphagia without t innitus. CARDIOVASCULAR: Denies shortness of breath, dyspnea on exertion, chest pain, palpitations , or orthopnea. RESPIRATORY: Denies cough, hemoptysis, or sputum production. GASTROINTESTINAL: Positive for constipation. Denies abdominal pain, diarrhea, melena, or bright red blood per [...] known drug allergies. PHYSICAL EXAMINATION: Weight is 77.7 kg, up 0.5 kg. Blood pressure 152/74, pulse 77, tem perature 37.3 degrees Celsius. Oxygen saturation is 94% on room air. EYES: Conjunctivae clear. Sclerae anicteric. ENMT: Mucous membranes are moist. CARDIOVASCULAR: Less ectopy today. Regular rate and rhythm with normal S1 and normal S2 without murmur, gallop, or rub. LUNGS: Good air movement bilaterally. No rhonchi, wheeze, or rales. ABDOMEN: Soft, nontender, nondistended, with normoactive bowel sounds. No hepatomegaly. No splenomegaly. No palpable masses. No ascites. LYMPH NODES: No cervical, supraclavicular, axillary, or inguinal lymphadenopathy. MUSCULOSKELETAL: No joint tenderness or swelling. SKIN: Moist desquamation along the right lateral neck in the area of the radiation therap y treatment field. EXTREMITIES: No cyanosis, clubbing, or edema. NEUROLOGIC: Alert and oriented times three. Face symmetric. Voice articulate. Station and gait within normal limits. STUDIES: Hemoglobin is 10.4, hematocrit 30%, platelet count 126,000, white count 2800 wit h absolute neutrophil count of 2000. Comprehensive metabolic panel is notable for normal B UN of 14, and normal creatinine of 0.7. Albumin is normal at 3.5. Protein is slightly low at 5.8 with lower limit of normal 6. Electrolyte abnormalities are delineated. Potassium is low at 3 and magnesium is low at 1.2, likely due to poor p.o. intake as well as the beatriz gering effect of cisplatin on his nephrons. ASSESSMENT/PLAN: I had an extended office encounter with Rosas and his , Katherine, who i s acting as the primary caregiver. The first issue we dealt with was pain. Rosas is not t olerating oral oxycodone and is, in fact, vomiting shortly after taking the medication. Th erefore, I recommended that we crossover to topical Duragesic 25 mcg/hr, dispense no. 10, o ne patch topically, change every 72 hours. The next issue was nausea, which potentially could be complicated by Rosas's diabetic piyush roparesis. I recommended metoclopramide 10 mg orally three times a day before every meal a nd then at bedtime with a snack. The third issue was electrolyte abnormalities. I prescribed magnesium oxide 400 mg, no. 6 0, one tablet orally twice daily, and potassium chloride 10 mEq, no. 60, one tablet orally twice daily. I recommended that Rosas return to see me in one week for clinical and labora tory follow-up. CC: Dr. 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 CHIEF COMPLAINT: Rosas returned to the clinic on March 13, 2011 for ongoing supportiv e care as he undergoes combined modality treatment for recurrent head and neck cancer. Rosas denies fever or chills. His chief complaint is flatulence. He is complaining of co nstipation. He is eating a little bit more every day but continues to have nausea for whic h he received a prescription for metoclopramide 10 mg no. 60, one tablet orally three times daily before meals and at bedtime as needed for nausea. VITAL SIGNS: Blood pressure is 142/62, pulse 76, respiratory rate, temperature 36.6 degre es Celsius. PROCEDURE: He received 1000 cc of normal saline over one hour and 36 minutes without adver se effects. CC: Dr. Ion Murphy <Electronically Signed by Rodger Gu MD> 03/19/11 0954 Rodger Gu MD - 02/26/2011 1:16 AM PDTPROGRESS NOTE: 03/12/2011 IDENTIFYING STATEMENT: Papo Daniel (Fritz) is a 70 year old man from [facility] on with recurrent squamous cell carcinoma [...] origin. 3. Initial management was at the [facility] in [place] (also known as the [facility] in [place], [place]). Treatments included intravenous high-dose vitamin C. 4. On June 06, 2002, he developed recurrent palpable lymphadenopathy in the left side of the neck that was biopsied and confirmed recurrence of squamous cell carcinoma. 5. Between 17 08 and 2003, he received intravenous chemotherapy at the [facility] in [place], [place], including insulin potentiation therapy. 6. He traveled to the [facility] where he received additional insulin potentiation therapy and intralesional injection of chemotherapy between 2003 and 2004. 7. He then cross ed over to naturopathic treatment following the Olivre regimen. 8. In December 2007, he develo ped progressive submental lymphadenopathy that was confirmed to be malignant by CT PET scan February 23, 2009. 9. On March 21, 2009, he began therapy the [facility] with sodium phenylbutyrat e, Rapamune, and oral Xeloda chemotherapy. He continued on the treatment plan with vari ous doses and schedules with stable submental lymphadenopathy until September 25, 2009. 10. He cros sed over to Vectibix chemotherapy September 25, 2009 through January 29, 2010. Repeat CT scan on February 07, 2010 at [facility] in [place], [place] demonstrated progress ion of disease with [...] a consultation with Dr. Lennon at the [facility] in [place], [place], who recommended palliative radiation therapy. He went on to receive 3000 centigray in 10 fractions limited only to the submental metastasis between July 292010 and August 25, 2010. Treatment plan was entirely for palliation of bleeding from his s ubmental metastasis and he returned promptly to his alternative medical regimen after completi ng his radiation therapy treatment plan. 13. On September 24, 2010 one month after completing his radiation therapy treatment plan, he returned to see Dr. Silas German at the [facility] in [place], [place], who noted significant decrease in the size of the submental mass. He continued on al ternative medical regimens until January 01, 2011 when he returned to the [facility] in [place], [place] and was evaluated by Dr. Bryant Navas, who note d multiple palpable bilateral cervical lymph nodes. Dr. Bryant Navas has recommended a more definitive combined modality treatment approach to his recurrent head and neck cancer with 7000 centigray given concurrently with systemic chemotherapy. CHIEF COMPLAINT: Rosas returned to the clinic on March 12, 2011 for ongoing supportiv e care as he completes his combined modality therapy for recurrent head and neck cancer. BRIEF REVIEW OF SYSTEMS: Positive for fatigue, nausea without emesis, odynophagia and dys phagia. Denies tinnitus. VITAL SIGNS: Blood pressure is 153/66, pulse 65, respiratory rate 20, temperature 36.7 de grees Celsius. PROCEDURE: He received 1000 cc of normal saline over one hour and 21 minutes without adver se effects. He will continue with daily IV fluids over the weekend and follow-up with me o n Wednesday. CC: Dr. Ion Murphy <Electronically Signed by Rodger Gu MD> 03/16/11 1828 Rodger Gu MD - 02/26/2011 1:16 AM PDTPROGRESS NOTE 03/10/2011 IDENTIFYING STATEMENT: Papo Daniel (Fritz) is a 70 year old man from [facility] on with recurrent squamous cell carcinoma [...] origin. 3. Initial management was at the [facility] in [place] (also known as the [facility] in [place], [place]). Treatments included intravenous high-dose vitamin C. 4. On June 06, 2002, he developed recurrent palpable lymphadenopathy in the left side of the neck that was biopsied and confirmed recurrence of squamous cell carcinoma. 5. Bet en 2001 and 2003, he received intravenous chemotherapy at the [facility] in [place], [place], including insulin potentiation therapy. 6. He traveled to the [facility] where he received additional insulin potentiation therapy and intralesional injection of chemotherapy between 2003 and 2004. 7. He then cross ed over to naturopathic treatment following the Oliver regimen. 8. In December 2007, he develo ped progressive submental lymphadenopathy that was confirmed to be malignant by CT PET scan February 23, 2009. 9. On March 21, 2009, he began therapy the [facility] with sodium phenylbutyrat e, Rapamune, and oral Xeloda chemotherapy. He continued on the treatment plan with vari ous doses and schedules with stable submental lymphadenopathy until September 25, 2009. 10. He crossed over to Vectibix chemotherapy September 25, 2009 through January 29, 2010. Repeat CT sca n on February 07, 2010 at [facility] in [place], [place] demonstrated progression of disease with increase in size of the submental lymph node, previously 18 x 18 mm and subsequently 30 mm x 27 mm. There were smaller satellite lesions surrounding the submental metastases, including a 16 mm satellite lesion just to the right of the dominant mass and a 14 x 13 mm satellite lesion just to the left of the dominant mass. In addition, there wa s new right cervical lymphadenopathy in the sternocleidomastoid region. 11. He was then lost to medical o ncology follow-up and was treating his progressive submental malignant lymphadenopathy with application of ludin packs. 12. In July 2010, he had erosion of the submental lymphaden opathy through the skin. On August 08, 2010, he had a consultation with Dr. Lennon at [facility] in [place], [place], who recommended pa lliative radiation therapy. He went on to receive 3000 centigray in 10 fractions limited o nly to the submental metastasis between August 11, 2010 and August 25, 2010. Treatmen t plan was entirely for palliation of bleeding from his submental metastasis and he returne d promptly to his alternative medical regimen after completing his radiation therapy treatm ent plan. 13. On September 24, 2010 one month after completing his radiation therapy treatment plan, he returned to see Dr. Silas German at the [facility] in [place], [place], who noted significant decrease in the size of the submental mass. He con tinued on alternative medical regimens until January 01, 2011 when he returned to the [facility] in [place], [place] and was evaluated by Dr. Eddi Navas, who noted multiple palpable bilateral cervical lymph nodes. Dr. Bryant moraes has recommended a more definitive combined modality treatment approach to his recurrent head and neck cancer with 7000 centigray given concurrently with systemic chemotherapy. CHIEF COMPLAINT: Rosas returned to the clinic on March 10, 2011 for ongoing supportiv e care as he nears the end of his radiation therapy treatment plan for recurrent head and n sally cancer. BRIEF REVIEW OF SYSTEMS: He is having ongoing nausea as well as odynophagia and dysphagia. He is feeling progressive fatigue and anorexia. He is complaining of insomnia. He has had no emesis. No high fevers or chills. PHYSICAL EXAMINATION: Blood pressure 157/62, pulse 66, respiratory rate 18, temperature 36 .6 degrees Celsius. His IV from March 08 was reexamined and had no surrounding tenderne ss or erythema and he received 1000 cc of normal saline intravenous over 1 hour and 35 romeo salma. 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 CHIEF COMPLAINT: Rosas returned to the clinic on March 11, 2011 for ongoing supportiv e care during combined modality therapy for recurrent head and neck cancer. REVIEW OF SYSTEMS: Notable for the fact that Rosas is managing his pain very well on sche duled oxycodone and was due for a dose when [facility]. He rece ived 15 mg of oxycodone oral at 10:44 a.m. He denies nausea, vomiting, fever, or chills. VITAL SIGNS: Blood pressure is 139/49, pulse 70, respiratory rate 16, temperature 36.1 de grees Celsius. PROCEDURE: Peripheral IV was established in the left forearm and he received 1000 cc of no rmal saline intravenous over one hour and 37 minutes without adverse effects. <Electronically Signed by Rodger Gu MD> 03/12/11 0902 Rodger Gu MD - 02/26/2011 1:16 AM PDTPROGRESS NOTE: 03/09/2011 IDENTIFYING STATEMENT: Papo Daniel (Fritz) is a 70 year old man from [facility] on with recurrent squamous cell carcinoma [...] origin. 3. Initial management was at the [facility] in [place] (also known as the [facility] in [place], [place]). Treatments included intravenous high-dose vitamin C. 4. On June 06, 2002, he developed recurrent palpable lymphadenopathy in the left side of the neck that was biopsied and confirmed recurrence of squamous cell carcinoma. 5. Between 17 08 and 2003, he received intravenous chemotherapy at the [facility] in [place], [place], including insulin potentiation therapy. 6. He traveled to the [facility] where he received additional insulin potentiation therapy and intralesional injection of chemotherapy between 2003 and 2004. 7. He then cross ed over to naturopathic treatment following the Oliver regimen. 8. In December 2007, he develo ped progressive submental lymphadenopathy that was confirmed to be malignant by CT PET scan February 23, 2009. 9. On March 21, 2009, he began therapy the [facility] with sodium phenylbutyrat e, Rapamune, and oral Xeloda chemotherapy. He continued on the treatment plan with vari ous doses and schedules with stable submental lymphadenopathy until September 25, 2009. 10. He cros sed over to Vectibix chemotherapy September 25, 2009 through January 29, 2010. Repeat CT scan on February 07, 2010 at [facility] in [place], [place] demonstrated progress ion of disease with [...] a consultation with Dr. Lennon at the [facility] in [place], [place], who recommended palliative radiation therapy. He [...] to see Dr. Silas German at the [facility] in [place], [place], who noted significant decrease in the size of the submental mass. He continued on a lternative medical regimens until January 01, 2011 when he returned to the [facility] in [place], [place] and was evaluated by Dr. Bryant Navas, who not ed multiple palpable bilateral cervical lymph nodes. Dr. Bryant Navas has recommended a mor e definitive combined modality treatment approach to his recurrent head and neck cancer with 7000 centigray given concurrently with systemic chemotherapy. CHIEF COMPLAINT: Rosas returned to the clinic on March 09, 2011 after completing six weeks of combined modality therapy for recurrent head and neck cancer. REVIEW OF SYSTEMS: CONSTITUTIONAL: Positive for fatigue. Positive for anorexia and limited p.o. intake. De nies nausea, vomiting, high fever, or chills. Denies night sweats. EAR, NOSE, MOUTH, THROA T: Positive for progressive dysphagia. CARDIOVASCULAR: Denies shortness of breath, dyspne a on exertion, chest pain, palpitations, or orthopnea. [...] known drug allergies. PHYSICAL EXAMINATION: Weight is 77.2 kg, down 1.2 kg. Blood pressure 124/64, pulse 64, t emperature 36 degrees Celsius. EYES: Conjunctivae clear. Sclerae anicteric. ENMT: Positive for xerostomia. CARDIOVASCULAR: Positive for frequent ectopy. LUNGS: Good air movement bilaterally. No rhonchi, wheeze, or rales. SKIN: Positive for moist desquamation of the right lateral neck. EXTREMITIES: No cyanosis, clubbing, or edema. NEUROLOGIC: He is somnolent but easily arousable. STUDIES: Hemoglobin is 10.5, hematocrit 30.2%, platelet count 102,000, white count 2900, absolute neutrophil count 2300. Comprehensive metabolic panel is notable for a normal seru m potassium of 3.8. Glucose is 228 mg/dL. ASSESSMENT: 1. Recurrent head and neck cancer. 2. Fatigue, anorexia, and mucositis due to combined modality therapy. PLAN: I canceled Rosas's scheduled chemotherapy today due to declining performance status . I substituted one week of intravenous fluids with normal saline 1000 cc over 90 minutes daily for the next seven consecutive days. Rosas will continue with radiation therapy as p rescribed by Dr. Alatorre. PROCEDURE: He received 1000 cc of normal saline intravenously over 90 minutes without adve rse effects. CC: Dr. Ion Murphy <Electronically Signed by Rodger Gu MD> 03/11/11 1857 Rodger Gu MD - 02/26/2011 1:16 AM PDTPROGRESS NOTE: 03/06/2011 IDENTIFYING STATEMENT: Papo Daniel (Fritz) is a 70 year old man from [facility] on with recurrent squamous cell carcinoma [...] origin. 3. Initial management was at the [facility] in [place] (also known as the [facility] in [place], [place]). Treatments included intravenous high-dose vitamin C. 4. On June 06, 2002, he developed recurrent palpable lymphadenopathy in the left side of the neck that was biopsied and confirmed recurrence of squamous cell carcinoma. 5. Between 17 08 and 2003, he received intravenous chemotherapy at the [facility] in [place], [place], including insulin potentiation therapy. 6. He traveled to the [facility] where he received additional insulin potentiation therapy and intralesional injection of chemotherapy between 2003 and 2004. 7. He then cross ed over to naturopathic treatment following the Oliver regimen. 8. In December 2007, he develo ped progressive submental lymphadenopathy that was confirmed to be malignant by CT PET scan February 23, 2009. 9. On March 21, 2009, he began therapy the [facility] with sodium phenylbutyrat e, Rapamune, and oral Xeloda chemotherapy. He continued on the treatment plan with vari ous doses and schedules with stable submental lymphadenopathy until September 25, 2009. 10. He cros sed over to Vectibix chemotherapy September 25, 2009 through January 29, 2010. Repeat CT scan on February 07, 2010 at [facility] in [place], [place] demonstrated progress ion of disease with [...] a consultation with Dr. Lennon at the [facility] in [place], [place], who recommended palliative radiation therapy. He [...] to see Dr. Silas German at the [facility] in [place], [place], who noted significant decrease in the size of the submental mass. He continued on a lternative medical regimens until January 01, 2011 when he returned to the [facility] in [place], [place] and was evaluated by Dr. Bryant Navas, who not ed multiple palpable bilateral cervical lymph nodes. Dr. Bryant Navas has recommended a mor e definitive combined modality treatment approach to his recurrent head and neck cancer with 7000 centigray given concurrently with systemic chemotherapy. CHIEF COMPLAINT: Rosas returned to the clinic on March 06, 2011 at cycle no. 6, day no . 4 of cisplatin chemotherapy which is being given concurrently with external beam radiatio n therapy. He is receiving supportive care on a daily basis because of his toxicity from c ombined modality therapy. His chief complaint is constipation, anorexia, and fatigue. Denies high fever, chills, na usea, or vomiting. VITAL SIGNS: Blood pressure is 190/80, pulse 80, respiratory rate 18, temperature 37.2 de grees Celsius. PROCEDURE: He received 1500 cc of normal saline over two hours and 24 minutes. I had an extensive discussion in the treatment center today with Rosas and his , Katherine , because of their concerns over the fact that Rosas's p.o. intake has been very marginal. He will be scheduled for additional IV fluids in the emergency department over the weekend . CC: Dr. Ion Murphy <Electronically Signed by Rodger Gu MD> 03/10/11 1433 Cali Alatorre MD - 02/26/2011 1:16 AM PDTDATE: 03/09/2011 RADIATION ONCOLOGY IGRT NOTE DIAGNOSIS: Oropharynx base of tongue squamous cell carcinoma. IGRT NOTE: Mr. David Daniel is currently undergoing definitive chemoradiotherapy for simon atment of his base of tongue cancer. The patient was brought into the radiation therapy simon atment room on 03/09/2011 and laid supine on the treatment table. A custom thermoplastic ma sk was placed over his face for immobilization purposes. The patient was aligned to the [facility], and a cone beam CT scan was performed. That CT scan was overlaid on his planning CT scan, and appropriate 3-D translational shifts were made to ensure proper alignment. Once the images had been approved by myself, the patient's treatment was delivered. DICTATED BY: Cali Alatorre MD Radiation Oncology JOB #: [id number] EXT JOB #:[id number] <Electronicall y Signed by Cali Alatorre MD> 03/14/11 0901 Cali Alatorre MD - 02/26/2011 1:16 AM PDTDATE: 03/09/2011 RADIATION ONCOLOGY WEEKLY ON-TREATMENT NOTE DIAGNOSIS: Oropharynx base of tongue squamous cell carcinoma. WEEKLY ON-TREATMENT NOTE: Mr. David Daniel is a 70-year-old gentleman who is currently un dergoing i ntensity modulated radiation therapy for treatment of his base of tongue squamou s cell carcinoma. The patient has received a total of 6360 cGy of a planned 6996 cGy to the base of tongue region. The pat ient continues to have difficulties maintaining adequate nu trition and hydration, secondary to dyspha edy and odynophagia from mucositis. The patient states that he did come in over the weekend for IV fl uids. The patient is trying to get so me protein shakes in. He is feeling more fatigued, and is anxiou s to complete his treatmen t. PHYSICAL EXAMINATION VITAL SIGNS: Blood pressure 124/64, pulse of 64, weight 77.2 kg, which is down from 78.4 k g one week ago. GENERAL: The patient is awake and oriented, but does appear tired. SKIN: The skin of the right neck is starting to show some dry desquamation with one small area of mo ist desquamation noted. There is hyperpigmentation throughout the treatment fiel d. Oral mucosa is ramone st and pink. The patient does have mucositis noted of the soft palate and posterior pharynx. NECK: There is no cervical adenopathy appreciated. ASSESSMENT AND PLAN: Mr. David Daniel is nearing completion of his definitive chemoradiot herapy for treatment of his base of tongue squamous cell carcinoma. The patient continues t o have difficulties maintaining adequate nutrition and hydration, secondary to his dysphagi a and odynophagia. The patient 's is very proactive and is trying to get him to take p rotein shakes. He does have 3 fractions r emaining of radiation treatment. The patient was given Silvadene cream to place on his neck. At this time, we will complete the patient's tr eatments later this week. I would like the patient to return i n one week for a repeat fibe roptic laryngoscopy to assess his response. 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 CHIEF COMPLAINT; Rosas returned to clinic on March 05, 2011 for ongoing supportive care during combined modality treatment of his head and neck cancer. Chief complaint is nausea. He denies any pain. He has pre-emesis but no emesis. No high fevers or chills. Blood press ure is 175/85, pulse 54, respiratory rate 16, temperature 36.6 degrees Celsius. A peripheral IV was established in the right mid forearm and he received 1 mg of intraveno us Ativan and 1000 cc of normal saline over 1 hour and 32 minutes. His IV was secured and l eft in place and he will return tomorrow for additional supportive care. cc: Ion Murphy MD <Electronically Signed by Rodger Gu MD> 03/09/11 1409 Rodger Gu MD - 02/26/2011 1:16 AM PDTPROGRESS NOTE: 03/03/2011 IDENTIFYING STATEMENT: Papo Daniel (Fritz) is a 70 year old man from [facility] on with recurrent squamous cell carcinoma [...] origin. 3. Initial management was at the [facility] in [place] (also known as the [facility] in [place], [place]). Treatments included intravenous high-dose vitamin C. 4. On June 06, 2002, he developed recurrent palpable lymphadenopathy in the left side of the neck that was biopsied and confirmed recurrence of squamous cell carcinoma. 5. Between 17 08 and 2003, he received intravenous chemotherapy at the [facility] in [place], [place], including insulin potentiation therapy. 6. He traveled to the [facility] where he received additional insulin potentiation therapy and intralesional injection of chemotherapy between 2003 and 2004. 7. He then cross ed over to naturopathic treatment following the Oliver regimen. 8. In December 2007, he develo ped progressive submental lymphadenopathy that was confirmed to be malignant by CT PET scan February 23, 2009. 9. On March 21, 2009, he began therapy the [facility] with sodium phenylbutyrat e, Rapamune, and oral Xeloda chemotherapy. He continued on the treatment plan with vari ous doses and schedules with stable submental lymphadenopathy until September 25, 2009. 10. He cros sed over to Vectibix chemotherapy September 25, 2009 through January 29, 2010. Repeat CT scan on February 07, 2010 at [facility] in [place], [place] demonstrated progress ion of disease with [...] a consultation with Dr. Lennon at the [facility] in [place], [place], who recommended palliative radiation therapy. He [...] to see Dr. Silas German at the [facility] in [place], [place], who noted significant decrease in the size of the submental mass. He continued on a lternative medical regimens until January 01, 2011 when he returned to the [facility] in [place], [place] and was evaluated by Dr. Bryant Navas, who not ed multiple palpable bilateral cervical lymph nodes. Dr. Bryant Navas has recommended a mor e definitive combined modality treatment approach to his recurrent head and neck cancer with 7000 centigray given concurrently with systemic chemotherapy. CHIEF COMPLAINT: Rosas returned to the clinic on March 03, 2011 for his sixth consecut vandana week of combined modality therapy for recurrent head and neck cancer. REVIEW OF SYSTEMS: CONSTITUTIONAL: Positive for fatigue. Denies nausea, vomiting, high fever, or shaking ch ills. Positive for anorexia and weight loss. Denies night sweats. EAR, NOSE, MOUTH, THROA T: Positive for odynophagia and dysphagia. Denies tinnitus. CARDIOVASCULAR: Denies short ness of breath, dyspnea on exertion, chest pain, palpitations, or orthopnea. RESPIRATORY: Denies cough, hemoptysis, or sputum production. GASTROINTESTINAL: Positive for constipation. Denies abdominal pain, diarrhea, melena, or bright red blood per [...] known drug allergies. PHYSICAL EXAMINATION: Weight is 78.4 kg, down 2 kg. Temperature 36 degrees Celsius, bloo d pressure 126/58, pulse 60. Karnofsky Performance Status is 70%. Pain is 6 out of 10 due t o odynophagia. EYES: Conjunctivae clear. Sclerae anicteric. ENMT: Stable facial edema. No posterior pharyngeal erythema today. Mucous membranes are very moist. CARDIOVASCULAR: Regular rate and rhythm. Normal S1 and S2 without murmur, gallop, or rub . LUNGS: Good air movement bilaterally. No rhonchi, wheeze, or rales. CHEST: Right anterior chest AICD is without surrounding tenderness or erythema. LYMPH NODES: No cervical, supraclavicular, axillary, or inguinal lymphadenopathy. SKIN: Increasing dry desquamation of the bilateral neck areas, both laterally and anterio r/posterior. EXTREMITIES: No cyanosis, clubbing, or edema. NEUROLOGIC: Awake and alert. Face symmetric. Voice is hoarse today. Station and gait w ithin normal limits. STUDIES: Hemoglobin is 11.7, hematocrit 34%, platelet count 104,000, white count 3900, ab solute neutrophil count 3100. A comprehensive metabolic panel was performed. Blood sugar was 215 when he started the day. The rest of his comprehensive metabolic panel is within n ormal limits. ASSESSMENT: Recurrent and regionally metastatic squamous cell carcinoma of the base of th e tongue. PLAN: Proceed today with Rosas's sixth consecutive week of cisplatin chemotherapy which i s being given concurrently with external beam radiation as prescribed by Dr. Alatorre. In ad dition, I prescribed additional IV fluids for the rest of this week to prevent any dehydrat ion and renal insufficiency that may occur due to Rosas's low p.o. intake. PROCEDURE: He received 16 mg of oral Zofran. A peripheral IV was obtained after two attem pts. He received 150 mg of intravenous Emend. He then received 1000 cc of normal saline c ontaining 20 mEq of potassium chloride and one gram magnesium sulfate over two hours. He marcelo roy received 60 mg of intravenous cisplatin in 500 cc of normal saline over one hour and on e minute. He then began another infusion of 500 cc of normal saline. After 43 minutes, erlinda s noted that Rosas was sweaty. He was sleeping at the time. Finger blood sugar was t aken and his blood sugar was 34. He received a glass of orange juice and ate some tapioca. He completed his second infusion of 500 cc of normal saline. Repeat blood sugar was 37 a nd he was given an amp of D50. He was much more alert after an amp of D50 and was awake en ough to eat an egg salad sandwich and cottage cheese. Before he left the clinic, I discussed his insulin management. I recommended that he not take any supplemental insulin for the rest of the day and that he cut his evening Lantus in sulin to 9 units tonight. Rosas will return tomorrow for additional IV fluids as part of s upportive care, as well as ongoing external beam radiation therapy by Dr. Alatorre. CC: Dr. Ion Murphy <Electronically Signed by Rodger Gu MD> 03/06/11 1412 Cali Alatorre MD - 02/26/2011 1:16 AM PDTDATE: 03/03/2011 RADIATION ONCOLOGY WEEKLY ON-TREATMENT VISIT NOTE DIAGNOSIS: BASE OF TONGUE SQUAMOUS CELL CARCINOMA. WEEKLY ON-TREATMENT NOTE: Mr. David Daniel is a 70-year-old gentleman with a history of a base of tongue squamous cell carcinoma for which he is getting intensity-modulated radiat ion therapy. The patient has received a total dose of 5512 cGy of a planned dose of 6996 cG y to the base of tongue region. The patient continues to note some fatigue as well as pain in his throat as well as difficulty swallowing. The patient does continue with the salt gabi er and baking soda rinses which do help with some of the discomfort in the oral cavity and oropharynx as well as to break up his secretions. The patient states that he is uncomforta ble but he is tolerating things well. The patient does come in today, both for his radiatio n treatments as well as weekly chemotherapy. PHYSICAL EXAMINATION VITAL SIGNS GENERAL: The patient is awake, alert, and oriented. Does appear tired. HEENT: The patient does have hyperpigmentation of the bilateral neck with no evidence of skin breakdown, no evidence of dry or moist desquamation. Oral mucosa is moist and pink. Th e patient does continue to have mucositis noted in the soft palate region. No other abnorma lities noted. ASSESSMENT AND PLAN: Mr. David Daniel does continue with his intensity- modulated radiat ion therapy for treatment of base of tongue cancer. At this time , the patient does continu e to lose some weight. He has lost approximately 15 pounds since he began his treatment. Th e patient does continue to be somewhat tired as well as does continue to have difficulties with painful swallowing. At this time, the patient has lost some weight, however, does cont inue to eat and drink. We did express the need to continue to push calories in order to ma intain his weight. I do not feel that he would warrant a PEG tube at this time as he is marck ring completion of his treatment. At this time, we will continue to treat Mr. Daniel as currently prescribed. DICTATED BY: Cali Alatorre MD Radiation Oncology JOB #: [id number] EXT JOB #:[id number] <Electronicall y Signed by Cali Alatorre MD> 03/10/11 1826 documented in this encounter Plan of Treatment +--------+ + + + + | Date | Type | Specialty | Care Team | Description | +--------+ + + + + | 12/18/ | Procedure | Cardiology | | | | 2019 | visit | | | | +--------+ + + + + | 03/20/ Office | Cardiology | Yasmin Bates, | | | 2019 | Visit | | [address] | | | | | | [facility] [place] | | | | | | [address] | | | | | | | | +--------+ + + + + documented as of this encounter Procedures + +--------+ + + + | Procedure Name | Priori | Date/Time | Associated Diagnosis | Comments | | | ty | | | | + +--------+ + + + | CBC WITH | Routin | 03/24/2011 | | Results for this | | DIFFERENTIAL | e | 8:28 AM | | procedure are in the | | | | PDT | | results section. | + +--------+ + + + | MAGNESIUM | Routin | 03/24/2011 | | Results for this | | | e | 8:28 AM | | procedure are in the | | | | PDT | | results section. | + +--------+ + + + | LACTATE | Routin | 03/24/2011 | | Results for this | | DEHYDROGENASE | e | 8:28 AM | | procedure are in the | | | | PDT | | results section. | + +--------+ + + + | COMPREHENSIVE | Routin | 03/24/2011 | | Results for this | | METABOLIC PANEL | e | 8:28 AM | | procedure are in the | | | | PDT | | results section. | + +--------+ + + + | CBC WITH | Routin | 03/16/2011 | | Results for this | | DIFFERENTIAL | e | 8:51 AM | | procedure are in the | | | | PDT | | results section. | + +--------+ + + + | MAGNESIUM | Routin | 03/16/2011 | | Results for this | | | e | 8:51 AM | | procedure are in the | | | | PDT | | results section. | + +--------+ + + + | LACTATE | Routin | 03/16/2011 | | Results for this | | DEHYDROGENASE | e | 8:51 AM | | procedure are in the | | | | PDT | | results section. | + +--------+ + + + | COMPREHENSIVE | Routin | 03/16/2011 | | Results for this | | METABOLIC PANEL | e | 8:51 AM | | procedure are in the | | | | PDT | | results section. | + +--------+ + + + | CBC WITH | Routin | 03/09/2011 | | Results for this | | DIFFERENTIAL | e | 8:29 AM | | procedure are in the | | | | PDT | | results section. | + +--------+ + + + | MAGNESIUM | Routin | 03/09/2011 | | Results for this | | | e | 8:29 AM | | procedure are in the | | | | PDT | | results section. | + +--------+ + + + | LACTATE | Routin | 03/09/2011 | | Results for this | | DEHYDROGENASE | e | 8:29 AM | | procedure are in the | | | | PDT | | results section. | + +--------+ + + + | COMPREHENSIVE | Routin | 03/09/2011 | | Results for this | | METABOLIC PANEL | e | 8:29 AM | | procedure are in the | | | | PDT | | results section. | + +--------+ + + + | CBC WITH | Routin | 03/03/2011 | | Results for this | | DIFFERENTIAL | e | 8:51 AM | | procedure are in the | | | | PDT | | results section. | + +--------+ + + + | MAGNESIUM | Routin | 03/03/2011 | | Results for this | | | e | 8:51 AM | | procedure are in the | | | | PDT | | results section. | + +--------+ + + + | LACTATE | Routin | 03/03/2011 | | Results for this | | DEHYDROGENASE | e | 8:51 AM | | procedure are in the | | | | PDT | | results section. | + +--------+ + + + | COMPREHENSIVE | Routin | 03/03/2011 | | Results for this | | METABOLIC PANEL | e | 8:51 AM | | procedure are in the | | | | PDT | | results section. | + +--------+ + + + documented in this encounter Results Comprehensive Metabolic Panel (03/24/2011 8:28 AM PDT) + + + + + + | Component | Value | Ref Range | Performed | Pathologist | | | | | At | Signature | + + + + + + | Glucose | 210 (H) | 70 - 109 mg/dL | [...] | | | | mg/dL | [facility] | | | | | [facility] | | | | | | [facility] - | | | | | | LABORATORY | | + + + + + + | Alkaline | 53 | 40 - 110 IU/L | [facility] [...] + + + + | ALT | 14 | 6 - 45 IU/L | [facility] | | | | | | [facility] | | | | | [facility] - | | | | | | LABORATORY | | + + + + + + | Bilirubin | 0.6 | 0.2 - 1.0 mg/dL | [facility] | | | Total | | | [facility] | | | | | | [facility] | | | | | | [facility] - | | | | | | LABORATORY | | + + + + + + | Total | 5.8 (L) | 6.0 - 7.8 gm/dL | [facility] | | | Protein | | | [facility] | | | | | | [facility] | | | | | | [facility] - | | | | | | LABORATORY | | + + + + + + | Albumin | 3.3 | 3.2 - 5.0 gm/dL | [facility] | | | | | | [facility] | | | | | | [facility] | | | | | | [facility] - | | | | | | LABORATORY | | + + + + + + | BUN | 7 | 7 - 18 mg/dL | [facility] | | | | | | [facility] | | | | | | [facility] | | | | | | [facility] - | | | | | | LABORATORY | | + + + + + + | Creatinine | 0.86 | 0.60 - 1.30 | [facility] | | | | | mg/dL | [facility] | | | [facility] | [facility] | | | | | | [facility] - | | | | | | LABORATORY | | + + + + + + | Estimated | >60Comment: For | >60 mL/min/A | [facility] | | | GFR | -Americans, | | [facility] | | | | please multiply the [...] + + + + | BUN/Creatin | 8.1 (L) | 12 - 20 | [facility] | | | ine Ratio | | | [facility] | | | | | | [facility] | | | | | | CENTER - | | | | | | LABORATORY | | + + + + + + | Na | 135 (L) | 136 - 149 mEq/L | [facility] | | | | | | [facility] | | | | | | [facility] | | | | | | C[facility] - | | | | | | LABORATORY | | + + + + + + | K | 4.0 | 3.5 - 5.1 mEq/l | [facility] [...] + + + + | CO2 | 27 | 24 - 31 mEq/L | [facility] | | | | | | [facility] | | | | | [facility] | | | | | | [facility] - | | | | | | LABORATORY | | + + + + + + | Anion Gap | 11.0 | 6.0 - 17.0 | [facility] | | | | | [...] | [address] | [place] | [phone] | | [facility] | | [address] | | | - LABORATORY | | | | + + + + + | [facility] | [address] | [place] | | | [facility] | | [address] | | | - LABORATORY | | | | + + + + + Lactate Dehydrogenase (03/24/2011 8:28 AM PDT) + +-------+ + + + | Component | Value | Ref Range | Performed | Pathologist | | | | | At | Signature | + +-------+ + + + | LDH TOTAL | 170 | 91 - 180 IU/L | [facility] | | | | | | [facility] [...] + | [facility] | [address] | [place], [place] | [phone] | | [facility] | | [address] | | | - LABORATORY | | | | + + + + + | [facility] | [address] | [place], [place] | | | [facility] | | [address] | | | - LABORATORY | | | | + + + + + Magnesium (03/24/2011 8:28 AM PDT) + +---------+ + + + | Component | Value | Ref Range | Performed | Pathologist | | | | | At | Signature | + +---------+ + + + | Magnesium | 1.5 (L) | 1.8 - 2.5 mg/dL | [facility] | | | | | | [facility] | | | | | | [facility] | | | | | | C[facility] - | | | | | | LABORATORY | | + +---------+ + + + + + | Specimen | + + | | + + + + + + + | Performing | Address | City/State/Zipcode | Phone Number | | Organization | | | | + + + + + | [facility] | [address] | [place] | [phone] | | [facility] | | [address] | | | - LABORATORY | | | | + + + + + | [facility] | [address] | [place] | | | [facility] | | [address], [facility] | | | - LABORATORY | | | | + + + + + CBC with Differential (03/24/2011 8:28 AM PDT) + + + + + + | Component | Value | Ref Range | Performed | Pathologist | | | | | At | Signature | + + + + + + | WBC | 3.4 (L) | 4.0 - 11.0 K/uL | [facility] | | | | | | [facility] | | | | | | [facility] | | | | | | CENTER - | | | | | | LABORATORY | | + + + + + + | RBC | 3.09 (L) | 4.30 - 5.70 | [facility] | | | | | M/uL | [facility] | | | | | | [facility] | | | | | | CENTER - | | | | | | LABORATORY | | + + + + + + | Hemoglobin | 10.7 (L) | 13.5 - 18.0 | [facility] | | | | | gm/dL | [facility] | | | | | | MEDICAL | | | | | | CENTER - | | | | | | LABORATORY | | + + + + + + | Hematocrit | 31.8 (L) | 40.0 - 51.0 % | [facility] | | | | | | [facility] | | | | | | [facility] | | | | | | C[facility] - | | | | | | LABORATORY | | + + + + + + | MCV | 103.0 (H) | 83.0 - 101.0 fL | [facility] | | | | | | [facility] | | | | | | [facility] | | | | | | CENTER - | | | | | | LABORATORY | | + + + + + + | MCH | 34.7 | 28.0 - 35.0 pg | [facility] | | | | | | [facility] | | | | | | [facility] | | | | | | CENTER - | | | | | | LABORATORY | | + + + + + + | MCHC | 33.7 | 32.0 - 36.0 | [facility] | | | | | g/dL | [facility] | | | | | | [facility] | | | | | | CENTER - | | | | | | LABORATORY | | + + + + + + | RDW-CV | 15.9 (H) | <15.0 % | [facility] | | | | | | [facility] | | | | | | [facility] | | | | | | CENTER - | | | | | | LABORATORY | | + + + + + + | Platelet | 185 | 140 - 440 K/uL | [facility] | | | Count | | | [facility] | | | | | | [facility] | | | | | | CENTER - | | | | | | LABORATORY | | + + + + + + | % | 78.6 (H) | 45 - 75 % | [facility] | | | Neutrophils | | | [facility] | | | | | | [facility]ICAL | | | | | | CENTER - | | | | | | LABORATORY | | + + + + + + | % | 5.3 (L) | 20 - 45 % | [facility] | | | Lymphocytes | | | [facility] | | | | | | [facility]ICAL | | | | | | CENTER - | | | | | | LABORATORY | | + + + + + + | % Monocytes | 15.2 (H) | 4 - 12 % | [facility] | | | | | | [facility] | | | | | | [facility] | | | | | | CENTER - | | | | | | LABORATORY | | + + + + + + | % | 0.7 | 0 - 5 % | [facility] | | | Eosinophils | | | [facility] | | | | | | [facility]ICAL | | | | | | CENTER - | | | | | | LABORATORY | | + + + + + + | % Basophils | 0.2 | 0 - 1 % | [facility] | | | | | | [facility] | | | | | | [facility]ICAL | | | | | | CENTER - | | | | | | LABORATORY | | + + + + + + | Absolute | 2.7 | 1.5 - 6.6 K/uL | [facility] | | | Neutrophils | | | [facility] | | | | | | [facility]ICAL | | | | | | CENTER - | | | | | | LABORATORY | | + + + + + + | Absolute | 0.2 (L) | 0.6 - 3.2 K/uL | [...] | Absolute | 0.0 | 0.0 - 0.4 K/uL | [facility] [...] + | [facility] | [address] | [place], [place] | [phone] | | [facility] | | [address] | | | - LABORATORY | | | | + + + + + | [facility] | [address] | [place], [place] | | | [facility] | | [address] | | | - LABORATORY | | | | + + + + + Comprehensive Metabolic Panel (03/16/2011 8:51 AM PDT) + + + + + + | Component | Value | Ref Range | Performed | Pathologist | | | | | At | Signature | + + + + + + | Glucose | 114 (H) | 70 - 109 mg/dL | [facility] | | | | | | [facility] | | | | | | [facility] | | | | | | CENTER - | | | | | | LABORATORY | | + + + + + + | Calcium | 8.2 (L) | 8.3 - 10.5 | [facility] | | | | | mg/dL | [facility] | | | | | | [facility] | | | | | | CENTER - | | | | | | LABORATORY | | + + + + + + | Alkaline | 62 | 40 - 110 IU/L | [facility] | | | Phosphatase | | | [facility] | | | | | | [facility] | | | | | | CENTER - | | | | | | LABORATORY | | + + + + + + | AST | 24 | 10 - 42 IU/L | [facility] | | | | | | [facility] | | | | | | [facility] | | | | | | CENTER - | | | | | | LABORATORY | | + + + + + + | ALT | 17 | 6 - 45 IU/L | [facility] [...] + + + + | Total | 5.8 (L) | 6.0 - 7.8 gm/dL | [facility] | | | Protein | | | [facility] | | | | | | [facility] | | | | | | CENTER - | | | | | | LABORATORY | | + + + + + + | Albumin | 3.5 | 3.2 - 5.0 gm/dL | [facility] | | | | | | [facility] | | | | | | [...] + + + + | Creatinine | 0.67 | 0.60 - 1.30 | [facility] | [...] + + + + | BUN/Creatin | 20.9 (H) | 12 - 20 | [facility] | | | ine Ratio | | | [facility] | | | | | | MEDICAL | | | | | | CENTER - | | | | | | LABORATORY | | + + + + + + | Na | 137 | 136 - 149 mEq/L | [facility] | | | | | | [facility] | | | | | | [facility] | | | | | | CENTER - | | | | | | LABORATORY | | + + + + + + | K | 3.0 (L)Comment: LOW | 3.5 - 5.1 mEq/l | [facility] | | | | [facility] | | [facility] | | | | [facility] WITH LOW | | MEDICAL | | | | MAGNESIUM. IF THIS MAY | | CENTER - | | | | BE RELEVANT IN THIS | | LABORATORY | | | | CASE, PLEASE ORDER | | | | | | MAGNESIUM LEVEL. | | | | + + + + + + | Cl | 104 | 98 - 109 mEq/l | [facility] | | | | | | [facility] | | | | | | [facility] | | | | | | CENTER - | | | | | | LABORATORY | | + + + + + + | CO2 | 27 | 24 - 31 mEq/L | [facility] | | | | | | [facility] | | | | | | [facility] | | | | | | CENTER - | | | | | | LABORATORY | | + + + + + + | Anion Gap | 9.0 | 6.0 - 17.0 | [facility] | [...] + | [facility] | [address] | [place], [place] | [phone] | | [facility] | | [address] | | | - LABORATORY | | | | + + + + + | [facility] | [address] | [place], [place] | | | [facility] | | [address] [place] [address] | | | - LABORATORY | | | | + + + + + Lactate Dehydrogenase (03/16/2011 8:51 AM PDT) + +-------+ + + + | Component | Value | Ref Range | Performed | Pathologist | | | | | At | Signature | + +-------+ + + + | LDH TOTAL | 170 | 91 - 180 IU/L | [facility] [...] + | [facility] | [address] | [place] | [phone] | | [facility] | | [address] | | | - LABORATORY | | | | + + + + + | [facility] | [address] | [place] | | | [facility] | | [address], [facility] | | | - LABORATORY | | | | + + + + + Magnesium (03/16/2011 8:51 AM PDT) + +---------+ + + + | Component | Value | Ref Range | Performed | Pathologist | | | | | At | Signature | + +---------+ + + + | Magnesium | 1.2 (L) | 1.8 - 2.5 mg/dL | [facility] | | | | | | [facility] | | | | | | [facility] | | | | | | C[facility] - | | | | | | LABORATORY | | + +---------+ + + + + + | Specimen | + + | | + + + + + + + | Performing | Address | City/State/Zipcode | Phone Number | | Organization | | | | + + + + + | [facility] | [address] | [place], [place] | [phone] | | [facility] | | [address] | | | - LABORATORY | | | | + + + + + | [facility] | [address] | [place], [place] | | | [facility] | | [facility] | | | - LABORATORY | | | | + + + + + CBC with Differential (03/16/2011 8:51 AM PDT) + + + + + + | Component | Value | Ref Range | Performed | Pathologist | | | | | At | Signature | + + + + + + | WBC | 2.8 (L) | 4.0 - 11.0 K/uL | [facility] | | | | | | [facility] | | | | | | [facility] | | | | | | CENTER - | | | | | | LABORATORY | | + + + + + + | RBC | 2.97 (L) | 4.30 - 5.70 | [facility] | | | | | M/uL | [facility] | | | | | | [facility] | | | | | | CENTER - | | | | | | LABORATORY | | + + + + + + | Hemoglobin | 10.4 (L) | 13.5 - 18.0 | [facility] | | | | | gm/dL | [facility] | | | | | | [facility] | | | | | | CENTER - | | | | | | LABORATORY | | + + + + + + | Hematocrit | 30.0 (L) | 40.0 - 51.0 % | [facility] | | | | | | [facility] | | | | | | [facility] | | | | | | CENTER - | | | | | | LABORATORY | | + + + + + + | MCV | 101.3 (H) | 83.0 - 101.0 fL | [...] + + + + | MCHC | 34.8 | 32.0 - 36.0 | [facility] | | | | | g/dL | [facility] | | | | | | [facility] | | | | | | CENTER - | | | | | | LABORATORY | | + + + + + + | RDW-CV | 15.0 | <15.0 % | [facility] | | | | | | [facility] | | | | | | [facility] | | | | | | CENTER - | | | | | | LABORATORY | | + + + + + + | Platelet | 126 (L) | 140 - 440 K/uL | [facility] | | | Count | | | [facility] | | | | | | [facility]ICAL | | | | | | CENTER - | | | | | | LABORATORY | | + + + + + + | % | 74.2 | 45 - 75 % | [facility] | | | Neutrophils | | | [facility] | | | | | | MEDICAL | | | | | | CENTER - | | | | | | LABORATORY | | + + + + + + | % | 6.1 (L) | 20 - 45 % | [facility] | | | Lymphocytes | | | [facility] | | | | | | MEDICAL | | | | | | CENTER - | | | | | | LABORATORY | | + + + + + + | % Monocytes | 18.4 (H) | 4 - 12 % | [facility] | | | | | | [facility] | | | | | | [facility]ICAL | | | | | | CENTER - | | | | | | LABORATORY | | + + + + + + | % | 0.9 | 0 - 5 % | [facility] | | | Eosinophils | | | [facility] | | | | | | MEDICAL | | | | | | CENTER - | | | | | | LABORATORY | | + + + + + + | % Basophils | 0.4 | 0 - 1 % | [facility] | | | | | | [facility] | | | | | | [facility]ICAL | | | | | | CENTER - | | | | | | LABORATORY | | + + + + + + | Absolute | 2.0 | 1.5 - 6.6 K/uL | [facility] | | | Neutrophils | | | [facility] | | | | | | MEDICAL | | | | | | CENTER - | | | | | | LABORATORY | | + + + + + + | Absolute | 0.2 (L) | 0.6 - 3.2 K/uL | [...] | Absolute | 0.0 | 0.0 - 0.4 K/uL | [facility] [...] | [address] | [place] | [phone] | | [facility] | | [address] | | | - LABORATORY | | | | + + + + + | [facility] | [address] | [place], [place] | | | [facility] | | [address] | | | - LABORATORY | | | | + + + + + Comprehensive Metabolic Panel (03/09/2011 8:29 AM PDT) + + + + + + | Component | Value | Ref Range | Performed | Pathologist | | | | | At | Signature | + + + + + + | Glucose | 228 (H) | 70 - 109 mg/dL | [...] + + + + | Alkaline | 52 | 40 - 110 IU/L | [facility] | | | Phosphatase | | | [facility] | | | | | | [facility] | | | | | | CENTER - | | | | | | LABORATORY | | + + + + + + | AST | 21 | 10 - 42 IU/L | [facility] | | | | | | [facility] | | | | | | [facility]ICAL | | | | | | CENTER - | | | | | | LABORATORY | | + + + + + + | ALT | 14 | 6 - 45 IU/L | [facility] [...] + + + + | Total | 5.8 (L) | 6.0 - 7.8 gm/dL | [facility] | | | Protein | | | [facility] | | | | | | [facility]ICAL | | | | | | CENTER - | | | | | | LABORATORY | | + + + + + + | Albumin | 3.4 | 3.2 - 5.0 gm/dL | [facility] | | | | | | [facility] | | | | | | [facility] | | | | | | CENTER - | | | | | | LABORATORY | | + + + + + + | BUN | 15 | 7 - 18 mg/dL | [facility] | | | | | | [facility] | | | | | | [facility] | | | | | | CENTER - | | | | | | LABORATORY | | + + + + + + | Creatinine | 1.03 | 0.60 - 1.30 | [facility] | [...] + + + + | BUN/Creatin | 14.6 | 12 - 20 | [facility] | | | ine Ratio | | | [facility] | | | | | | [facility]ICAL | | | | | | CENTER - | | | | | | LABORATORY | | + + + + + + | Na | 134 (L) | 136 - 149 mEq/L | [facility] | | | | | | [facility] | | | | | | [facility] | | | | | | CENTER - | | | | | | LABORATORY | | + + + + + + | K | 3.8 | 3.5 - 5.1 mEq/l | [facility] | | | | | | [facility] | | | | | | [facility]ICAL | | | | | | CENTER - | | | | | | LABORATORY | | + + + + + + | Cl | 100 | 98 - 109 mEq/l | [facility] | | | | | | [facility] | | | | | | [facility] | | | | | | CENTER - | | | | | | LABORATORY | | + + + + + + | CO2 | 27 | 24 - 31 mEq/L | [facility] | | | | | | [facility] | | | | | | [facility] | | | | | | CENTER - | | | | | | LABORATORY | | + + + + + + | Anion Gap | 10.8 | 6.0 - 17.0 | [facility] | [...] + | [facility] | [address] | [place] | [phone] | | [facility] | | [address] | | | - LABORATORY | | | | + + + + + | [facility] | [address] | [place] | | | [facility] | | [address] | | | - LABORATORY | | | | + + + + + Lactate Dehydrogenase (03/09/2011 8:29 AM PDT) + +-------+ + + + [...] + | [facility] | [address] | [place], [place] | [phone] | | [facility] | | [address] | | | - LABORATORY | | | | + + + + + | [facility] | [address] | [place], [place] | | | [facility] | | [address] [place] [address] | | | - LABORATORY | | | | + + + + + Magnesium (03/09/2011 8:29 AM PDT) + +---------+ + + + | Component | Value | Ref Range | Performed | Pathologist | | | | | At | Signature | + +---------+ + + + | Magnesium | 1.3 (L) | 1.8 - 2.5 mg/dL | [facility] | | | | | | [facility] | | | | | | [facility] | | | | | | [facility] - | | | | | | LABORATORY | | + +---------+ + + + + + | Specimen | + + | | + + + + + + + | Performing | Address | City/State/Zipcode | Phone Number | | Organization | | | | + + + + + | [facility] | [address] | [place] | [phone] | | [facility] | | [address] | | | - LABORATORY | | | | + + + + + | [facility] | [address] | [place], [place] | | | [facility] | | [address] | | | - LABORATORY | | | | + + + + + CBC with Differential (03/09/2011 8:29 AM PDT) + + + + + + | Component | Value | Ref Range | Performed | Pathologist | | | | | At | Signature | + + + + + + | WBC | 2.9 (L) | 4.0 - 11.0 K/uL | [facility] | | | | | | [facility] | | | | | | [facility] | | | | | | C[facility] - | | | | | | LABORATORY | | + + + + + + | RBC | 2.99 (L) | 4.30 - 5.70 | [facility] | | | | | M/uL | [facility] | | | | | | [facility] | | | | | | CENTER - | | | | | | LABORATORY | | + + + + + + | Hemoglobin | 10.5 (L) | 13.5 - 18.0 | [facility] | | | | | gm/dL | [facility] | | | | | | [facility] | | | | | | [facility] - | | | | | | LABORATORY | | + + + + + + | Hematocrit | 30.2 (L) | 40.0 - 51.0 % | [facility] | | | | | | [facility] | | | [facility] | | [facility] | | | [facility] - | | | | | | LABORATORY | | + + + + + + | MCV | 100.9 | 83.0 - 101.0 fL | [facility] [...] + + + + | MCHC | 34.9 | 32.0 - 36.0 | [facility] | | | | | g/dL | [facility] | | | | | | [facility] | | | | | | [facility] - | | | | | | LABORATORY | | + + + + + + | RDW-CV | 14.6 | <15.0 % | [facility] | | | | | [facility] | | [facility] | [facility] | | | [facility] - | | | | | | LABORATORY | | + + + + + + | Platelet | 102 (L) | 140 - 440 K/uL | [facility] | | | Count | | | [facility] | | | | | | [facility] | | | [facility] - | | | | | | LABORATORY | | + + + + + + | % | 78.2 (H) | 45 - 75 % | [facility] | | | Neutrophils | | | [facility] | | | | | | [facility] | | | | | | [facility] - | | | | | | LABORATORY | | + + + + + + | % | 6.6 (L) | 20 - 45 % | [...] + + + + | % | 0.8 | 0 - 5 % | [facility] [...] + + + + | Absolute | 2.3 | 1.5 - 6.6 K/uL | [facility] | | | Neutrophils | | | [facility] | | | | | | [facility] | | | [facility] | | [facility] - | | | | | | LABORATORY | | + + + + + + | Absolute | 0.2 (L) | 0.6 - 3.2 K/uL | [facility] | | | Lymphocytes | | | [facility] | | | | | | [facility] | | | | | | [facility] - | | | | | | LABORATORY | | + + + + + + | Absolute | 0.4 | 0.0 - 1.0 K/uL | [facility] | | | Monocytes | | | [facility] | | | | | | [facility] | | | | | | [facility] - | | | | | | LABORATORY | | + + + + + + | Absolute | 0.0 | 0.0 - 0.4 K/uL | [facility] [...] + | [facility] | [address] | [place], [place] | [phone] | | [facility] | | [id number] | | | - LABORATORY | | | | + + + + + | [facility] | [address] | [place] | | | [facility] | | [id number] | | | - LABORATORY | | | | + + + + + Comprehensive Metabolic Panel (03/03/2011 8:51 AM PDT) + + + + + + | Component | Value | Ref Range | Performed | Pathologist | | | | | At | Signature | + + + + + + | Glucose | 215 (H) | 70 - 109 mg/dL | [facility] | | | | | [facility] | | | | | | [facility] | | | | | | [facility] - | | | | | | LABORATORY | | + + + + + + | Calcium | 8.8 | 8.3 - 10.5 | [facility] | | | | | mg/dL | [facility] | | | | | | [facility] | | | | | | [facility] - | | | | | | LABORATORY | | + + + + + + | Alkaline | 50 | 40 - 110 IU/L | [facility] | | | Phosphatase | | | [facility] | | | [facility] | | [facility] - | | | | | | LABORATORY | | + + + + + + | AST | 24 | 10 - 42 IU/L | [facility] | | | | | | [facility] | | | | | | [facility] | | | | | | [facility] - | | | | | | LABORATORY | | + + + + + + | ALT | 13 | 6 - 45 IU/L | [facility] | | | | | | [facility] | | | | | | [facility] | | | | | | [facility] - | | | | | | LABORATORY | | + + + + + + | Bilirubin | 1.0 | 0.2 - 1.0 mg/dL | [facility] | | | Total | | | [facility] | | | | | | [facility] | | | | | | [facility] - | | | | | | LABORATORY | | + + + + + + | Total | 6.0 | 6.0 - 7.8 gm/dL | [facility] [...] + + + + | Creatinine | 0.98 | 0.60 - 1.30 | [facility] | | | | | mg/dL | [facility] | | | | | | [facility] | | | | | | C[facility] - | | | | | | LABORATORY | | + + + + + + | Estimated | >60Comment: For | >60 mL/min/A | [facility] | | | GFR | -Americans, | | . [facility] | | | | please multiply the [...] + + + + | BUN/Creatin | 14.3 | 12 - 20 | [facility] | | | ine Ratio | | | [facility] | | | | | | MEDICAL | | | | | | CENTER - | | | | | | LABORATORY | | + + + + + + | Na | 130 (L) | 136 - 149 mEq/L | [facility] | | | | [facility] | | | | | | [...] + + + + | Cl | 98 | 98 - 109 mEq/l | [facility] | | | | | | MEDICAL | | | | | | CENTER - | | | | | | LABORATORY | | + + + + + + | CO2 | 27 | 24 - 31 mEq/L | [facility] [...] + | [facility] | [address] | [place], [place] | [phone] | | [facility] | | [address] | | | - LABORATORY | | | | + + + + + | [facility] | [address] | [place], [place] | | | [facility] | | [facility] | | | - LABORATORY | | | | + + + + + Lactate Dehydrogenase (03/03/2011 8:51 AM PDT) + +-------+ + + + | Component | Value | Ref Range | Performed | Pathologist | | | | | At | Signature | + +-------+ + + + | LDH TOTAL | 173 | 91 - 180 IU/L | [facility] [...] + | [facility] | [address] | [place] | [phone] | | [facility] | | [address] | | | - LABORATORY | | | | + + + + + | [facility] | [address] | [place], [place] | | | [facility] | | [id number] | | | - LABORATORY | | | | + + + + + Magnesium (03/03/2011 8:51 AM PDT) + +-------+ + + + | Component | Value | Ref Range | Performed | Pathologist | | | | | At | Signature | + +-------+ + + + | Magnesium | 1.9 | 1.8 - 2.5 mg/dL | [facility] [...] + | [facility] | [address] | [place], [place] | [phone] | | [facility] | | [address] | | | - LABORATORY | | | | + + + + + | [facility] | [address] | [place], [place] | | | [facility] | | [address] | | | - LABORATORY | | | | + + + + + CBC with Differential (03/03/2011 8:51 AM PDT) + + + + + + | Component | Value | Ref Range | Performed | Pathologist | | | | | At | Signature | + + + + + + | WBC | 3.9 (L) | 4.0 - 11.0 K/uL | [facility] | | | | | | MEDICAL | | | | | | CENTER - | | | | | | LABORATORY | | + + + + + + | RBC | 3.33 (L) | 4.30 - 5.70 | [facility] | | | | | M/uL | [facility] | | | | | | MEDICAL | | | | | | CENTER - | | | | | | LABORATORY | | + + + + + + | Hemoglobin | 11.7 (L) | 13.5 - 18.0 | [facility] | | | | | gm/dL | [facility] | | | | | | MEDICAL | | | | | | CENTER - | | | | | | LABORATORY | | + + + + + + | Hematocrit | 34.0 (L) | 40.0 - 51.0 % | [facility] | | | | | [facility] | | | | | | MEDICAL | | | | | | CENTER - | | | | | | LABORATORY | | + + + + + + | MCV | 102.2 (H) | 83.0 - 101.0 fL | [facility] | | | | | [facility] | | | | | | MEDICAL | | | | | | CENTER - | | | | | | LABORATORY | | + + + + + + | MCH | 35.3 (H) | 28.0 - 35.0 pg | [facility] | | | | | | [facility] | | | | | | MEDICAL | | | | | | CENTER - | | | | | | LABORATORY | | + + + + + + | MCHC | 34.5 | 32.0 - 36.0 | [facility] | [...] + + + + | Platelet | 104 (L) | 140 - 440 K/uL | [facility] | | | Count | | | [facility] | | | | | | MEDICAL | | | | | | CENTER - | | | | | | LABORATORY | | + + + + + + | % | 80.8 (H) | 45 - 75 % | [facility] | | | Neutrophils | | | [facility] | | | | | | MEDICAL | | | | | | CENTER - | | | | | | LABORATORY | | + + + + + + | % | 6.4 (L) | 20 - 45 % | [facility] | | | Lymphocytes | | | [facility] | | | | | | MEDICAL | | | | | | CENTER - | | | | | | LABORATORY | | + + + + + + | % Monocytes | 11.0 | 4 - 12 % | [facility] | | | | | | [facility] | | | | | | MEDICAL | | | | | | CENTER - | | | | | | LABORATORY | | + + + + + + | % | 1.3 | 0 - 5 % | [facility] [...] + + + + | Absolute | 3.1 | 1.5 - 6.6 K/uL | [facility] | | | Neutrophils | | | [facility] | | | | | | MEDICAL | | | | | | CENTER - | | | | | | LABORATORY | | + + + + + + | Absolute | 0.2 (L) | 0.6 - 3.2 K/uL | [facility] | | | Lymphocytes | | | [facility] | | | | | | MEDICAL | | | | | | CENTER - | | | | | | LABORATORY | | + + + + + + | Absolute | 0.4 | 0.0 - 1.0 K/uL | [facility] [...] 0.0 | 0.0 - 0.1 K/uL | [facility] | | | Basophils | | | [...] + + | [facility] | [address] | [place] | [phone] | | [facility] | | [address] | | | - LABORATORY | | | | + + + + + | [facility] | [address] | [place], [place] | | | [facility] | | [id number] | | | - LABORATORY | | | | + + + + + documented in this encounter Visit Diagnoses Not on filedocumented in this encounter"
--- OUTSIDE RECORDS SUMMARY | ~2019-11-13 | XMS | Encounter Summary ---
Demographics + + + | Address | [address] | | | [place] [address] | + + + | Home Phone | | + + + | Preferred Language | Unknown | + + + | Marital Status | | + + + | Sikh Affiliation | EPI | + + + | Race | White | + + + | Ethnic Group | Not or | + + + Author + + + | Author | [facility] | + + + | Organization | [facility] | + + + | Address | Unknown | + + + | Phone | Unavailable | + + + Support + + +---------+ + | Name | Relationship | Address | Phone | + + +---------+ + | Katherine Daniel | ECON | Unknown | | + + +---------+ + Care Team Providers + +------+ + | Care Qa Test Lead Name | Role | Phone | + +------+ + PCP | Unavailable | + +------+ + Encounter Details +--------+ + + + + | Date | Type | Department | Care Team | Description | +--------+ + + + + | 05/31/ | Office | [facility] | Note, [...] as of this encounter Progress Notes Interface, Pharmacology Teacher In - 03/22/2006 2:23 AM PDTCLINIC DATE: 05/31/2001 OTOLARYNGOLOGY CLINIC SUBJECTIVE: Mr. Daniel returns for a 1-month followup visit. He is doing well and has no complaints. PHYSICAL EXAMINATION: GENERAL: He looks well. VITAL SIGNS: His weight is 189 pounds, which is up 7 pounds from his last visit. NECK: His neck is well healed. There is no adenopathy palpable on either side of the neck. HEENT: Intraorally, no mucosal lesions are seen. I sprayed his nose using phenylephrine and lidocaine, and examined him using the flexible scope. The nasal cavity, nasopharynx, oropharynx, hypopharynx, and larynx were all well visualized, and there was no evidence of any disease. 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 He is going to return for a followup examination in 1 month. Edis Hatch M.D. [facility] / [id number] / [id number] / [id number] / [id number] signed by Interface, Pharmacology Teacher In at 03/22/2006 2:23 AM PDTdoc umented in this encounter Plan of Treatment Not on filedocumented as of this encounter Visit Diagnoses Not on filedocumented in this encounter"
--- OUTSIDE RECORDS SUMMARY | ~2019-11-13 | XMS | Encounter Summary ---
Demographics + + + | Address | [address] | | | [place] [address] | + + + | Home Phone | | + + + | Preferred Language | Unknown | + + + | Marital Status | | + + + | Denominational Affiliation | 1069 | + + + | Race | Unknown | + + + | Ethnic Group | Unknown | + + + Author + + + | Author | [facility] | | | and [place] | + + + | Organization | [facility] | | | and [place] | + + + | Address | Unknown | + + + | Phone | Unavailable | + + + Support + + + + + | Name | Relationship | Address | Phone | + + + + + | Daniel Daniel | ECON | [place] | | | | | [address] | | + + + + + | Katherine Daniel | ECON | [address] | | | | | [place] | | | | | [address] | | + + + + + | Katherine Daniel | ECON | [address] | | | | | [place] | | | | | [address] | | + + + + + Care Team Providers + +------+ + | Care Hand Edge Bander Name | Role | Phone | + +------+ + PCP | Unavailable | + +------+ + Encounter Details +--------+ + + + + | Date | Type | Department | Care Team | Description | +--------+ + + + + | 04/17/ | Hospital | [facility] | Conversion | [facility] | | 2002 | Encounter | CONVERSION DEP [phone] | Transaction, | LYMPH-HEAD/NECK | | | | [address] | Provider Unknown | (HCC) | | | | [place], [place] | [phone] | | | | | [address] | | | | | | [phone] | | | +--------+ + + + [...] | | | | | [place] | | | | | | [address] | | | | | | | | +--------+ + + + + documented as of this encounter Visit Diagnoses + + | Diagnosis | + + | Secondary and unspecified malignant neoplasm of lymph nodes of head, face, and neck | + + documented in this encounter"
--- OUTSIDE RECORDS SUMMARY | ~2019-11-13 | XMS | Encounter Summary ---
Demographics + + + | Address | [address] | | | [place] [address] | + + + | Home Phone | | + + + | Preferred Language | Unknown | + + + | Marital Status | | + + + | Sikhism Affiliation | 1069 | + + + | Race | Unknown | + + + | Ethnic Group | Unknown | + + + Author + + + | Author | [facility] | | | and [place] | + + + | Organization | [facility] | | | and [place] | + + + | Address | Unknown | + + + | Phone | Unavailable | + + + Support + + + + + | Name | Relationship | Address | Phone | + + + + + | Daniel Daniel | ECON | [place] | | | | | [address] | | + + + + + | Katherine Daniel | ECON | [address] | | | | | [place] | | | | | [address] | | + + + + + | Katherine Daniel | ECON | [address] | | | | | [place] | | | | | [address] | | + + + + + Care Team Providers + +------+ + | Care Afternoon Babysitter Name | Role | Phone | + [...] Description | +--------+---------+ + + + | 05/17/ | Office | [facility] | Yasmin Orellana, | Chronic diastolic | | 2019 | Visit | CARDIOLOGY CHARAN | MD Aamir YOON | congestive heart | | | | [address] | [place], [place] | failure (HCC) | | | | [address] [place] [address] | [id number] | (Primary Dx); | | | | [place] | | Coronary artery | | | | [address] | | disease of bypass | | | | [phone] | | graft of lummi | | | | | | heart with stable | | | | | | angina pectoris | | | | | | (HCC); Essential | | | | | | hypertension; | | | | | | Ischemic | | | | | | cardiomyopathy; | | | | | | Biventricular [...] + + + | Blood Pressure | 110/60 | 05/17/2019 3:14 PM | | | | | PST | | + + + + + | Pulse | 63 | 05/17/2019 3:14 PM | | | | | PST | | + + + + + | Temperature | - | - | | + + + + + | Respiratory Rate | - | - | | + + + + + | Oxygen Saturation | 99% | 05/17/2019 3:14 PM | | | | | PST | | + + + + + | Inhaled Oxygen | - | - | | | Concentration | | | | + + + + + | Weight | 66 kg (145 lb 9.6 | 05/17/2019 3:14 PM | | | | oz) | PST | | + + + + + | Height | 180.3 cm (5' 11") | 05/17/2019 3:14 PM | | | | | PST | | + + + + + | Body Mass Index | 20.31 | 05/17/2019 3:14 PM | | | | | PST | | + + + + + documented in this encounter Progress Notes Yasmin Orellana MD - 05/17/2019 3:00 PM PSTFormatting of this note might be different f rom the original. Date of visit: 05/17/2019 Primary Care Physician: Tracie Cm MD CHIEF COMPLAINT: Chief Complaint Patient presents with Follow-up HISTORY OF PRESENT ILLNESS: David is 79 y.o. here for follow-up visit. Complex past medical history. Ischemic card iomyopathy severe mitral regurgitation status post 2 mitral clips. Has been feeling fairly well lately. No hospitalization. Weight and blood pressure have b een stable. Complaining of bilateral breast tenderness. Chronic fatigue and limited activity level secondary to chronic back pain. Significant back pain that was exacerbated after a fall in January 2018. Previously HPI. Recently evaluated in ER, [place] due to increased weight, lower ext edema. [...] Has been following up with Cardiology in [facility] for aortic valve stenosis. Had BIV ICD implantation for ischemic cardiomyopathy prior. Past medical history, SH, FH, and medications were reviewed in the chart. Medications: Outpatient Encounter Medications as of 05/17/2019 Medication Sig Dispense Refill [DISCONTINUED] amLODIPine (NORVASC) 5 mg tablet (ED prepack) amlodipine besylate 5 mg t abs amLODIPine (NORVASC) 5 mg tablet Take 5 mg by mouth. [DISCONTINUED] ASPIRIN PO Take by mouth. baclofen (LIORESAL) 10 mg tablet Take 10 mg by mouth Twice daily as needed. Blood Glucose Monitoring Suppl (BLOOD GLUCOSE MONITOR SYSTEM) w/Device KIT by Lolis vasquez. carvedilol (COREG) 25 mg tablet Take 50 mg by mouth 2 times daily (with breakfast & din ner). [DISCONTINUED] carvedilol (COREG) 25 mg tablet Take 2 tablets by mouth 2 (two) times da sid with meals. furosemide (LASIX) 20 mg tablet Take 20 mg by mouth Daily. [DISCONTINUED] gabapentin (NEURONTIN) 100 mg capsule Take 100 mg by mouth 3 times daily . hydrALAZINE (APRESOLINE) 50 MG tablet Take 1 tablet by mouth 2 (two) times daily. HYDROcodone-acetaminophen (NORCO) 7.5-325 mg per tablet Take [...] kin 3 (three) times daily before meals. [DISCONTINUED] insulin lispro (HUMALOG) 100 units/mL injection (vial) humalog 100 unit/ ml soln lisinopril (PRINIVIL, ZESTRIL) 20 mg tablet Take 1 tablet by mouth 2 (two) times daily. [DISCONTINUED] lisinopril (PRINIVIL, ZESTRIL) 20 mg tablet Take 20 mg by mouth. [DISCONTINUED] lubiprostone (AMITIZA) 24 mcg capsule Take 24 mcg by mouth 2 times daily (with breakfast & dinner). nitroglycerin (NITROSTAT) 0.[address] 0.4 mg under the tongue every 5 minute s as needed for Chest pain. [DISCONTINUED] nitroglycerin (NITROSTAT) 0.[address] 0.4 mg under the tongue every 5 (five) minutes as needed for Chest pain. ONE TOUCH ULTRA TEST strip 0 [DISCONTINUED] ONETOUCH DELICA LANCETS 33G MISC 0 potassium chloride (KLOR-CON) 10 MEQ ER tablet Take 1 tablet by mouth daily as needed. Take with Torsemide only as needed. [DISCONTINUED] spironolactone (ALDACTONE) 25 mg tablet (ED prepack) spironolactone 25 m g tabs [DISCONTINUED] spironolactone (ALDACTONE) 50 mg tablet Take 1 tablet by mouth 2 (two) t imes daily. torsemide (DEMADEX) 20 mg tablet Take 1 tablet by mouth daily as needed. traZODone (DESYREL) 50 mg tablet trazodone hcl 50 mg tabs venlafaxine (EFFEXOR) 75 MG tablet Take 75 mg by mouth 3 times daily. No facility-administered encounter medications on file as of 05/17/2019. Allergies No Known Allergies REVIEW OF SYSTEMS: Constitutional: Positive for fatigue weight has been stable. HEENT: Negative for nosebleeds, ear discharge, nasal congestion or soar throat. Eyes: Negative for visual disturbance, redness, or secretion. Respiratory: Negative for cough, sputum production, hemoptysis, wheezing. Cardiovascular: As HPI. Gastrointestinal: Negative for nausea, vomiting, diarrhea, abdominal pain and blood in stoo l. Genitourinary: Negative for dysuria or hematuria. Musculoskeletal: Negative for myalgias, back pain or arthralgia. Skin: Negative for rash. Neurological: Negative for dizziness. No numbness. No recent falls. No slurred speech. Hematological: No significant bruising. Psychiatric/Behavioral: No depression or anxiety. PHYSICAL EXAM Vital Signs: BP 110/60 | Pulse 63 | Ht 1.803 m (5' 11") | Wt 66 kg (145 lb 9.6 oz) | SpO2 99% | BMI 20.31 kg/m GENERAL APPEARANCE: Alert, oriented, cooperative, no [...] Date ALT 22 04/18/2018 ALT 14 03/24/2011 EC06/29/2018 Ordered and reviewed by myself showed [...] to be euvolemic today. 2. Hypertension. 3. Hyperkalemia. 4. Hyponatremia. 5. Chronic kidney disease stage II. 6. Ischemic cardiomyopathy, with BiV ICD. 7. S/P 2 mitral clips due to severe mitral regurgitation, most recent echo shows moderate r egurgitation. 8. Moderate to severe aortic stenosis. 9. Severe pulmonary hypertension. 10. Type II diabetes mellitus. 11. History of atrial flutter previous ablation in 2004. 12. History of anemia. 13. Obstructive sleep apnea. 14. 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 Appears euvolemic. Reviewed blood work from last to 3 months. Continue with carvedilol 25 mg bid, lisinopril 20 mg bid. We will decrease spironolactone to 25 mg once a day. Continue monitoring sodium and potassium levels. Continue with torsemide 20 mg twice daily. Hydralazine 50 mg twice daily. Previously stopped amlodipine. Anemia of chronic disease of unknown etiology, chemotherapy was advised however patient dec lined. We will schedule his ICD interrogation. We will continue monitoring weight, I reviewed salt and fluid restrictions. Further recommendations to follow. *This report has been prepared using a voice recognition system. The report was reviewed fo r accuracy, however, sound-alike word errors, addition and/or deletions may occur. If there is any question about this report please contact me. 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
--- OUTSIDE RECORDS SUMMARY | ~2019-11-13 | XMS | Encounter Summary ---
Demographics + + + | Address | [address] | | | [place] [address] | + + + | Home Phone | | + + + | Preferred Language | Unknown | + + + | Marital Status | | + + + | Rastafari Affiliation | EPI | + + + | Race | White | + + + | Ethnic Group | Not or | + + + Author + + + | Author | [facility] | + + + | Organization | [facility] | + + + | Address | Unknown | + + + | Phone | Unavailable | + + + Support + + +---------+ + | Name | Relationship | Address | Phone | + + +---------+ + | Katherine Daniel | ECON | Unknown | | + + +---------+ + Care Team Providers + +------+ + | Care Motor Vehicle Assembler Name | Role | Phone | + [...] as of this encounter Progress Notes Interface, Health Careers Instructor In - 03/02/2006 3:02 AM PDTCLINIC DATE: [...] him at that time. Edis Hatch M.D. [facility] / [id number] / [id number] / [id number] / Tdocumented in this encounter Plan of Treatment Not on filedocumented as of this encounter Visit Diagnoses Not on filedocumented in this encounter"
--- OUTSIDE RECORDS SUMMARY | ~2019-11-13 | XMS | Encounter Summary ---
Demographics + + + | Address | [address] | | | [place] [address] | + + + | Home Phone | | + + + | Preferred Language | Unknown | + + + | Marital Status | | + + + | Pentecostal Affiliation | EPI | + + + | Race | White | + + + | Ethnic Group | Not or | + + + Author + + + | Author | [facility] | + + + | Organization | [facility] | + + + | Address | Unknown | + + + | Phone | Unavailable | + + + Support + + +---------+ + | Name | Relationship | Address | Phone | + + +---------+ + | Katherine Daniel | ECON | Unknown | | + + +---------+ + Care Team Providers + +------+ + | Care Director Behavioral Health Name | Role | Phone | + +------+ + PCP | Unavailable | + +------+ + Encounter Details +--------+ + + + + | Date | Type | Department | Care Team | Description | +--------+ + + + + | 06/29/ | Office | [facility] | Note, [...] as of this encounter Progress Notes Interface, Codifier In - 03/17/2006 3:11 AM PDTCLINIC DATE: 06/29/2000 OTOLARYNGOLOGY CLINIC HISTORY OF PRESENT ILLNESS: Mr. Daniel returns for a followup visit. He is feeling well and has no complaints. PHYSICAL EXAMINATION: GENERAL: He looks well. NECK: His neck is well healed without any adenopathy on either side. HEENT: Intraorally, no mucosal lesions are seen. I sprayed his nose using phenylephrine and lidocaine and examined using a flexible scope. Nasal cavity, nasopharynx, and oropharynx, hypopharynx, and larynx are well visualized. There is no evidence of any tumor seen. IMPRESSION AND PLAN: Doing well now 6 months up from treatment of a unknown primary squamous cell carcinoma. He will return for a followup visit in 6 weeks. Edis Hatch M.D. Boat Diesel Motor Mechanic, Otolaryngology, Head and Neck Surgery [facility] / [id number] / [id number] / [id number] / [id number] signed by Interface, Codifier In at 03/17/2006 3:11 AM PDTdoc umented in this encounter Plan of Treatment Not on filedocumented as of this encounter Visit Diagnoses Not on filedocumented in this encounter"
--- OUTSIDE RECORDS SUMMARY | ~2019-11-13 | XMS | Encounter Summary ---
Demographics + + + | Address | [address] | | | [place] [address] | + + + | Home Phone | | + + + | Preferred Language | Unknown | + + + | Marital Status | | + + + | Congregation Affiliation | EPI | + + + | Race | White | + + + | Ethnic Group | Not or | + + + Author + + + | Author | [facility] | + + + | Organization | [facility] | + + + | Address | Unknown | + + + | Phone | Unavailable | + + + Support + + +---------+ + | Name | Relationship | Address | Phone | + + +---------+ + | Katherine Daniel | ECON | Unknown | | + + +---------+ + Care Team Providers + +------+ + | Care Car Head Liner Installer Name | Role | Phone | + +------+ + PCP | Unavailable | + +------+ + Encounter Details +--------+ + + + + | Date | Type | Department | Care Team | Description | +--------+ + + + + | 12/14/ | Office | [facility] | Note, [...] as of this encounter Progress Notes Interface, Beveler In - 02/26/2006 1:00 AM PDTCLINIC DATE: 12/14/2001 OTOLARYNGOLOGY CLINIC HISTORY OF PRESENT ILLNESS: Mr. Daniel returns for a 1-month followup visit. He is continuing to complain of some intermittent headaches, but otherwise feels well. PHYSICAL EXAMINATION GENERAL: He looks well. VITAL SIGNS: His weight is 184 pounds which is up 1 pound from his last visit. NECK: Without any adenopathy. HEENT: Intraorally, no mucosal lesions are seen. I sprayed his nose using phenylephrine lidocaine and examined it using a flexible scope. The nasal cavity, nasopharynx, oropharynx, hypopharynx, and larynx are all well visualized, and there is no evidence of any tumor seen. IMPRESSION: Doing well. Now, 1 year out from treatment of an unknown primary head and neck cancer. He is going to return for a followup visit in 2 months. Edis Hatch M.D. Coffee Grower, Otolaryngology [facility] / [id number] / [id number] / [id number] / Tdocumented in this encounter Plan of Treatment Not on filedocumented as of this encounter Visit Diagnoses Not on filedocumented in this encounter"
--- OUTSIDE RECORDS SUMMARY | ~2019-11-13 | XMS | Encounter Summary ---
Demographics + + + | Address | [address] | | | [place] [address] | + + + | Home Phone | | + + + | Preferred Language | Unknown | + + + | Marital Status | | + + + | Druze Affiliation | 1069 | + + + | Race | Unknown | + + + | Ethnic Group | Unknown | + + + Author + + + | Author | [facility] | | | and [place] | + + + | Organization | [facility] | | | and [place] | + + + | Address | Unknown | + + + | Phone | Unavailable | + + + Support + + + + + | Name | Relationship | Address | Phone | + + + + + | Daniel Daniel | ECON | [place] | | | | | [address] | | + + + + + | Katherine Daniel | ECON | [address] | | | | | [place] | | | | | [address] | | + + + + + | Katherine Daniel | ECON | [address] | | | | | [place] | | | | | [address] | | + + + + + Care Team Providers + +------+ + | Care Text Transcriber Name | Role | Phone | + +------+ + PCP | Unavailable | + +------+ + Encounter Details +--------+ + + + + | Date | Type | Department | Care Team | Description | +--------+ + + + + | 08/08/ | Hospital | [facility] | | | | 2010 - | Encounter | [facility] | | | | | | CENTER [address] | | | | 08/21/ | | [place] | | | | 2010 | | [address] | | | | | | [phone] | | | +--------+ + + + [...] [place] | | | | | | [address] | | | | | | | | +--------+ + + + + documented as of this encounter Visit Diagnoses Not on filedocumented in this encounter"
--- OUTSIDE RECORDS SUMMARY | ~2019-11-13 | XMS | Encounter Summary ---
Demographics + + + | Address | [address] | | | [place] [address] | + + + | Home Phone | | + + + | Preferred Language | Unknown | + + + | Marital Status | | + + + | Mandaeism Affiliation | EPI | + + + [...] Team Providers + +------+ + | Care Parachute Panel Joiner Name | Role | Phone | + +------+ + PCP | Unavailable | + +------+ + Encounter Details +--------+ + + + + | Date | Type | Department | Care Team | Description | +--------+ + + + + | 06/06/ | Office | | Note, Outpatient | [...] as of this encounter Progress Notes Interface, Digital Media Planner In - 01/25/2006 1:15 AM PDTCLINIC DATE: 06/06/2002 OTOLARYNGOLOGY CLINIC HISTORY: Mr. Daniel returns for a followup visit. He just got back from [place] and during that time, he got quite ill, but he is feeling better now. His main concern is that he has developed a lump in the left side of his neck, and he did see Dr. Lackey in [place] for this last week, and they did do a needle biopsy on it, and this apparently was negative for malignancy. PHYSICAL EXAMINATION GENERAL: He looks well. VITAL SIGNS: His weight is 190 pounds which is up 5 pounds from his last visit. NECK: Unremarkable on the left side, however, on the right side, he does have a 1-cm very firm, round, mobile node just inferior to the submandibular gland. No other adenopathy is palpable on either side of the neck. PROCEDURE: I sprayed his nose using phenylephrine and lidocaine and examined him using a flexible scope. The nasal cavity, nasopharynx, oropharynx, hypopharynx, and larynx were all well visualized, and I did not see any abnormalities here. I did obtain the FNA report from [place] on a needle aspiration done on May 31, 2002. The diagnosis is that of numerous mature lymphocytes. No malignant cells are identified. PLAN: I discussed the situation with Mr. Daniel. This node seems very concerning to me, and I worry about the possibility of the geographic miss on the needle biopsy and therefore, I recommended to him that we repeat the needle biopsy today for which he consented. The cytopathologist came and did repeat the needle biopsy and unfortunately, it is indeed possible for squamous carcinoma. I discussed the situation with Mr. Daniel, and I recommended to him that we proceed with a left-sided neck dissection and then strongly consider postoperative radiotherapy. He tells me that he is seeing a cashier credit in [place] and would like to go consult with him before making his final decision. Because of the business around the end of the year, I am going to go ahead and get him scheduled for this procedure to be done shortly after New Year. We can always cancel it, if he decides that he would like to treat this by another route, but by getting it on the schedule now, we will avoid further delay in his treatment. He will call me back in the next week or so with his decision. Edis Hatch M.D. Pomology Teacher of Otolaryngology [facility] / [id number] / [id number] / [id number] / [id number] cc: Anand Lackey M.D. [address] [place] [id number] signed by Interface, Digital Media Planner In at 01/25/2006 1:1 5 AM PDTdocumented in this encounter Plan of Treatment Not on filedocumented as of this encounter Visit Diagnoses Not on filedocumented in this encounter"
--- OUTSIDE RECORDS SUMMARY | ~2019-11-13 | XMS | Encounter Summary ---
Demographics + + + | Address | [address] | | | [place] [address] | + + + | Home Phone | | + + + | Preferred Language | Unknown | + + + | Marital Status | | + + + | Roman Catholic Affiliation | 1069 | + + + | Race | Unknown | + + + | Ethnic Group | Unknown | + + + Author + + + | Author | [facility] | | | and [place] | + + + | Organization | [facility] | | | and [place] | + + + | Address | Unknown | + + + | Phone | Unavailable | + + + Support + + + + + | Name | Relationship | Address | Phone | + + + + + | Daniel Daniel | ECON | [place] | | | | | [address] | | + + + + + | Katherine Daniel | ECON | [address] | | | | | [place] | | | | | [address] | | + + + + + | Katherine Daniel | ECON | [address] | | | | | [place] | | | | | [address] | | + + + + + Care Team Providers + +------+ + | Care Problem Manager Name | Role | Phone | + +------+ + PCP | Unavailable | + +------+ + Reason for Visit +--------+ + | Reason | Comments | +--------+ + | Other | | +--------+ + Encounter Details +--------+ + + + + | Date | Type | Department | Care Team | Description | +--------+ + + + + | 09/20/ | Telephone | [facility] | Riccardo, | Other | | 2014 | | MED [facility] | Rodger Powell MD [address] | | | | | [facility] [address] | [facility] | | | | | [address] [facility] | [place] [address] | | | | | [place] [address] | [phone] | | | | | [phone] | | | +--------+ + + + [...] | | | | | [place] | | | | | | [address] | | | | | | | | +--------+ + + + + documented as of this encounter Visit Diagnoses Not on filecumented in this encounter"
--- OUTSIDE RECORDS SUMMARY | ~2019-11-13 | XMS | Clinical Summary ---
Demographics + + + | Address | [address] | | | [place] [address] | + + + | Home Phone | | + + + | Preferred Language | Unknown | + + + | Marital Status | | + + + | Pentecostalism Affiliation | Unknown | + + + | Race | Unknown | + + + | Ethnic Group | Unknown | + + + Author + + + | Author | [facility] (Historical as of | | | 02-11-19) | + + + | Organization | [facility] (Historical as of | | | 02-11-19) | + + + | Address | Unknown | + + + | Phone | Unavailable | + + + Support + + + + + | Name | Relationship | Address | Phone | + + + + + | Katherine Gomez | ECON | [address] | | | | | [place] | | | | | [address] | | + + + + + Care Team Providers + +------+ + | Care Air Conditioning Mechanic Industrial Name | Role | Phone | + +------+ + | Tracie Cm MD | PP | | + +------+ + Allergies No Known Allergies Current Medications + + +--------+---------+------+------+-------+ | Prescription [...] + +--------+---------+------+------+-------+ | carvedilol (COREG) | Take 2 tablets by | 360 | 2 | 03/2 | | Activ | | 25 MG tablet | mouth 2 (two) times | tablet | | 03/17 | | e | | | daily with meals. | | | 19 | | | + + +--------+---------+------+------+-------+ | lisinopril | Take 1 tablet by | 180 | 2 | 04/0 | | Activ | | (ZESTRIL) 20 MG | mouth 2 (two) times | tablet | | 4/20 | | e | | tablet | daily. | | | 19 | | | + + +--------+---------+------+------+-------+ | potassium chloride | Take 1 tablet by | 60 | 2 | 07/1 | | Activ | | (K-DUR) 10 MEQ | mouth daily as | tablet | | 0/20 | | e | | tablet | needed. Take with | | | 19 | | | | | Torsemide only as | | | | | | | | needed. | | | | | | + + +--------+---------+------+------+-------+ | torsemide | Take 1 tablet by | 60 | 2 | 07/1 | | Activ | | (DEMADEX) 20 MG | mouth daily as | tablet | | 0/20 | | e | | tablet | needed. | | | 19 | | | + + +--------+---------+------+------+-------+ | spironolactone | Take 1 tablet by | | | 07/1 | | Activ | | (ALDACTONE) 50 MG | mouth 2 (two) times | | | 0/20 | | e | | tablet | daily. | | | 19 | | | + + +--------+---------+------+------+-------+ | hydrALAZINE | Take 1 tablet by | 60 | 2 | 01/26 | 08 | Activ | | (APRESOLINE) 50 MG | mouth 2 (two) times | tablet | | 2/20 | 1/20 | e | | tablet | daily. | | | 19 | 20 | | + + +--------+---------+------+------+-------+ | morphine (MS | Take 15 mg by mouth | | | | | Activ | | CONTIN) 15 MG 12 hr | every 12 (twelve) | | | | | e | | tablet | hours. 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 | + + + + + | Aortic stenosis | 02/11/2019 | + + + + + | Overview: He has moderate to severe aortic stenosis, | | according to old records. Details. Ejection fraction of 35 to | | 40% in September 2017. Severely enlarged RV. Mild mitral stenosis | | with mitral clip in place and moderate MR | + + + + + | Tricuspid regurgitation | 02/07/2019 | + + + + + | Overview: Formatting of this note may be different from the | | original.An echo in September of this year revealed the followin. | | The left ventricle is normal in size with moderately impaired | | systolic function EF 35-40%. 2. There is septal flattening in | | diastole and systole which is consistent with right ventricular | | pressure. 3. The right ventricle is severely enlarged with | | moderately impaired systolic function. 4. The aortic valve is | | moderately calcified with moderate to severe stenosis. 5. Mitral | | Clip is noted, mild mitral stenosis and moderate regurgitation. | | 6. Severe tricuspid regurgitation with severe pulmonary | | hypertension. 7. There is no pericardial effusion. 8. Patent | | mitral clip puncture shunt with bidirectional flow mostly left to | | right. 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 | + + + + + | Atrial flutter ([facility]) | 11/17/2016 | + + + + + | Overview: Overview: 10/21/2007 patient underwent typical | | atrial flutter ablation by Sander De Leon M.D. | + + + + + | S/P mitral valve repair | 09/15/2016 | + + + + + | Overview: History of severe MR treated with 2 mitral valve | | 2016. | + + + + + | Chronic diastolic congestive heart failure (HCC) | 06/26/2016 | + + + | Non-rheumatic mitral regurgitation | 06/26/2016 | + + + | Biventricular ICD (implantable cardioverter-defibrillator) in | 10/13/2013 | | place | | + + + + + | Overview: The initial ICD was placed in 2004 and generator | | replacement was performed 2009. Third device,Medtronic Praveen II | | SOCIAL SERVICES ANALYST-D ICD, placed on November 18:Normal device | | function was seen today. The pacing threshold was 1.25 V at 0.4 | | ms in the atrium, 0.75 V at 0.4 ms in the right ventricle, and | | patient is occurred 99% of the time in the ventricles and 93% of | | the time in the atrium. There have been no arrhythmias. The | | underlying rhythm today with sinus bradycardia 47 bpm. | + + + + + | Diabetes mellitus, type II ([facility]) | 08/10/2011 | + + + + + | Overview: He has had diabetes mellitus for 50 years. Glucose | | is been elevated for the past month. | + + + + + | Dyslipidemia | 08/10/2011 | + + + | Essential hypertension with goal blood pressure less than 130/80 | 08/10/2011 | + + + | Ischemic cardiomyopathy | 08/10/2011 | + + + + + | Overview: Last Assessment & Plan: Severe MR by last echo. Was | | seeing Dr. Serra, wishes to establish care with [place] | | carton stenciler. Will refer to cardiology and try to arrange his | | appointment for when he is in [place] for his generator change. | + + Resolved Problems + + + + | Problem | Noted | Resolved | | | Date | Date | + + + + | Coronary atherosclerosis | 08/10/19 | | | | 12 | 9 | + + + + Family History + + +------+ + | [...] + + + | Blood Pressure | 142/62 | 02/07/2019 4:17 PM PDT | + + + + | Pulse | 63 | 02/07/2019 4:17 PM PDT | + + + + | Temperature | - | - | + + + + | Respiratory Rate | - | - | + + + + | Oxygen Saturation | 98% | 02/07/2019 4:17 PM PDT | + + + + | Inhaled Oxygen | - | - | | Concentration | | | + + + + | Weight | 73.5 kg (162 lb) | 02/07/2019 4:17 PM PDT | + + + + | Height | 182.9 cm (6') | 02/07/2019 4:17 PM PDT | + + + + | Body Mass Index | 21.97 | 02/07/2019 4:17 PM PDT | + + + + Plan of [...] filefrom Last 3 Months Insurance + +--------+ +------+-------+ + | Payer | Benefi | Subscriber | Type | Phone | Address | | | t Plan | ID | | | | | | / | | | | | | | Group | | | | | + +--------+ +------+-------+ + | MEDICARE | MEDICA | [id number] | | | [address] | | | RE | | | | [place] [id number] | | | IP-OP | | | | | + +--------+ +------+-------+ + | [employer] [place] | [employer] | [id number] | | | | | | [place] | | | | | | | [place] | | | | | + +--------+ [...] | [birth year]/ | Work: | [address]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
--- OUTSIDE RECORDS SUMMARY | ~2019-11-13 | XMS | Encounter Summary ---
Demographics + + + | Address | [address] | | | [place] [address] | + + + | Home Phone | | + + + | Preferred Language | Unknown | + + + | Marital Status | | + + + | Holiness Affiliation | EPI | + + + | Race | White | + + + | Ethnic Group | Not or | + + + Author + + + | Author | [facility] | + + + | Organization | [facility] | + + + | Address | Unknown | + + + | Phone | Unavailable | + + + Support + + +---------+ + | Name | Relationship | Address | Phone | + + +---------+ + | Katherine Daniel | ECON | Unknown | | + + +---------+ + Care Team Providers + +------+ + | Care Wash House Worker Name | Role | Phone | + +------+ + PCP | Unavailable | + +------+ + Encounter Details +--------+ + + + + | Date | Type | Department | Care Team | Description | +--------+ + + + + | 12/22/ | Results | Otolaryngology | Edis Hatch, | | | 2000 | Only | Head and Neck | MD [address] [facility] | | | | | Surgery Services at | [facility] | | | | | [address] | [place], [place] | | | | | [address] | [address] | | | | | Physician's | [phone] | | | | | Pavilion, [facility] floor | | | | | | [place], [place] | | | | | | [address] | | | | | | [phone] | | | +--------+ + + + [...] as of this encounter Plan of Treatment Not on filedocumented as of this encounter Procedures + +--------+ + + + | Procedure Name | Priori | Date/Time | Associated Diagnosis | Comments | | | ty | | | | + +--------+ + + + | TROPONIN I, PLASMA | Routin | 12/23/2000 | | Results for this | | | e | 6:30 PM | | procedure are in the | | | | PDT | | results section. | + +--------+ + + + | TROPONIN I, PLASMA | Urgent | 12/23/2000 | | Results for this | | | | 10:30 AM | | procedure are in the | | | | PDT | | results section. | + +--------+ + + + | SURGICAL PATHOLOGY | Routin | 12/23/2000 | | Results for this | | | e | | | procedure are in the | | | | | | results section. | + +--------+ + + + | COAG MASTER PANEL | Routin | 12/22/2000 | | Results for this | | | e | 4:10 PM | | procedure are in the | | | | PDT | | results section. | + +--------+ + + + | INR | Routin | 12/22/2000 | | Results for this | | | e | 4:10 PM | | procedure are in the | | | | PDT | | results section. | + +--------+ + + + | APTT (ACT. PART. | Routin | 12/22/2000 | | Results for this | | THROMBO TIME) | e | 4:10 PM | | procedure are in the | | | | PDT | | results section. | + +--------+ + + + documented in this encounter Results TROPONIN I (12/23/2000 6:30 PM PDT) + +-------+ + + + | Component | Value | Ref Range | Performed | Pathologist | | | | | At | Signature | + +-------+ + + + | TROPONIN I | 0.0 | <2.4 ng/mL | [facility] | | | | | | DEPARTMENT | | | | | | OF | | | | | | PATHOLOGY | | + +-------+ + + + + + | Specimen | + + | | + + + + + + + | Performing | Address | City/State/Zipcode | Phone Number | | Organization | | | | + + + + + | [facility] | [address] [facility] | [place] [address] | | | PATHOLOGY | [address] | | | + + + + + | [facility] | [address] [place] [address] | [place] [address] | | | PATHOLOGY | [address] | | | + + + + + TROPONIN I (12/23/2000 10:30 AM PDT) + +-------+ + + + | Component | Value | Ref Range | Performed | Pathologist | | | | | At | Signature | + +-------+ + + + | TROPONIN I | 0.0 | <2.4 ng/mL | [facility] | | | | | | DEPARTMENT | | | | | | OF | | | | | | PATHOLOGY | | + +-------+ + + + + + | Specimen | + + | | + + + + + + + | Performing | Address | City/State/Zipcode | Phone Number | | Organization | | | | + + + + + | [facility] DEPARTMENT OF | [address] | [place] [address] | | | PATHOLOGY | [address] | | | + + + + + | [facility] | [address] [facility] [address] | [place] [address] | | | PATHOLOGY | [address] | | | + + + + + SURGICAL PATHOLOGY (12/23/2000) + + + + + + | Component | Value | Ref Range | Performed | Pathologist | | | | | At | Signature | + + + + + + | SURGICAL | SOURCE OF SPECIMEN:1 Rt | | [facility] | | | PATHOLOGY | tongue baseSOURCE OF | | DEPARTMENT | | | | SPECIMEN:2 Lt tongue | | OF | | | | baseSOURCE OF SPECIMEN:3 | | PATHOLOGY | | | | Rt nasopharynxSOURCE OF | | | | | | SPECIMEN:4 Rt | | | | | | submandibularSOURCE OF | | | | | | SPECIMEN:5 Rt upper | | | | | | juglarSOURCE OF | | | | | | SPECIMEN:6 Rt lower | | | | | | juglar Final Pathologic | | | | | | Diagnosis:#1 Right | | | | | | tongue base, biopsy: | | | | | | - Squamous mucosa and | | | | | | associated lymphoid | | | | | | tissue, negative | | | | | | formalignancy #2 Left | | | | | | tongue base, biopsy: | | | | | | - Squamous mucosa and | | | | | | associated lymphoid | | | | | | tissue, negative | | | | | | formalignancy #3 Right | | | | | | nasopharynx, biopsy: | | | | | | - Nasopharyngeal | | | | | | mucosa and associated | | | | | | lymphoid tissue, | | | | | | negative formalignancy | | | | | | #4 Right submandibular | | | | | | gland, resection: | | | | | | - Salivary gland with no | | | | | | diagnostic abnormality | | | | | | #5 Right upper jugular | | | | | | lymph nodes, excisional | | | | | | biopsy: - | | | | | | 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 | | | | | | /PathologistT:12/28/00/f | | | | | | The diagnosis is based | | | | | | on gross and microscopic | | | | | | examinations. It was | | | | | | madeby the attending | | | | | | pathologist after review | | | | | | of all microscopic | | | | | | slides. 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 Gross | | | | | | Description:Six | | | | | | specimens received | | | | | | fresh. #1 Right tongue | | | | | | base, biopsy: Received | | | | | | fresh on Telfa are two | | | | | | irregularfragments of | | | | | | firm, rubbery, lizarraga to | | | | | | red tissue measuring 0.5 | | | | | | x 0.4 x 0.2 cmand 1.2 x | | | | | | 0.5 x 0.3 cm. #2 Left | | | | | | tongue base, biopsy-FS: | | | | | | Received fresh is one | | | | | | irregular fragment | | | | | | offirm rubbery, lizarraga to | | | | | | red tissue measuring 1 x | | | | | | 0.7 x 0.2 cm. The | | | | | | specimenused for frozen | | | | | | section diagnosis is | | | | | | resubmitted in total. #3 | | | | | | Right nasopharynx: | | | | | | Received fresh on Telfa | | | | | | is one irregular | | | | | | fragment offirm, | | | | | | rubbery, lizarraga to red | | | | | | tissue measuring 0.9 x | | | | | | 0.6 x 0.2 cm. #4 Right | | | | | | submandibular: Received | | | | | | fresh is one irregular | | | | | | fragment of | | | | | | firm,rubbery, lizarraga to red | | | | | | tissue measuring 5.5 x | | | | | | 4 x 2 cm. Serial | | | | | | sectioningreveals a | | | | | | minimal amount of yellow | | | | | | homogeneous fat and | | | | | | submandibular | | | | | | glandsmeasuring 4 x 2.8 | | | | | | x 1.2 cm. Examination of | | | | | | the gland reveals a | | | | | | lobulatedtissue | | | | | | consistent with no | | | | | | lesions or masses. #5 | | | | | | Right upper jugular: | | | | | | Received fresh is one | | | | | | irregular fragment of | | | | | | firm,rubbery, lizarraga to red | | | | | | tissue measuring 4.2 x | | | | | | 3 x 2 cm. Sectioning | | | | | | reveals onepossible | | | | | | lymph node measuring 2.5 | | | | | | x 2 x 2 cm. #6 Right | | | | | | lower jugular: Received | | | | | | fresh is one irregular | | | | | | fragment of | | | | | | firm,rubbery, lizarraga to red | | | | | | tissue measuring 3.2 x | | | | | | 1.8 x 1 cm. Serial | | | | | | sectioningreveals two | | | | | | possible lymph nodes | | | | | | measuring 0.5 x 0.4 x | | | | | | 0.4 cm each. Cassette | | | | | | Index:#1 Right tongue | | | | | | base, biopsy:1, #2 | | | | | | Left tongue base, | | | | | | biopsy:2, frozen section | | | | | | residue, #3 Right | | | | | | nasopharynx:3, #4 | | | | | | Right submandibular:4, | | | | | | RS#5 Right upper | | | | | | jugular:5, one possible | | | | | | node, RS#6 Right lower | | | | | | jugular:6, two possible | | | | | | nodes, | | | | | | RSSP/CC:dRendering | | | | | | Diagnostician: | | | | | | Eugene Soliman | | | | | | | | | | | | Beti,Ph.D.PathologistEle | | | | | | ctronically Signed | | | | | | 12/29/2000Comment: | | | | | | SOURCE OF SPECIMEN: Rt | | | | | | tongue base-Lt tongue | | | | | | base-Rt nasopharynx-Rt | | | | | | submandibular-Rt upper | | | | | | juglar-Rt lower juglar | | | | + + + + + + + + | Specimen | + + | | + + + + + + + | Performing | Address | City/State/Zipcode | Phone Number | | Organization | | | | + + + + + | [facility] | [address] | [place] [address] | | | PATHOLOGY | [address] | | | + + + + + | [facility] | [address] | [place] [address] | | | PATHOLOGY | [address] | | | + + + + + PROTHROMBIN TIME (12/22/2000 4:10 PM PDT) + + + + + + | Component | Value | Ref Range | Performed | Pathologist | | | | | At | Signature | + + + + + + | INR | 0.90 (L)Comment: | 0.98 - 1.08 INR | [facility] | | | | PT INR Therapeutic | | DEPARTMENT | | | | ranges for full | | OF | | | | anticoagulation: | | PATHOLOGY | | | | INR for | | | | | | Venous Thromboembolism | | | | | | | | | | | | (2.0-3.0)INR | | | | | | INR for most | | | | | | patients with mech. | | | | | | valves (2.5-3.5)INR | | | | + + + + + + + + | Specimen | + + | | + + + + + + + | Performing | Address | City/State/Zipcode | Phone Number | | Organization | | | | + + + + + | [facility] | [address] [place] [address] | [place] [address] | | | PATHOLOGY | [address] | | | + + + + + | [facility] | [address] [place] [address] | [place] [address] | | | PATHOLOGY | [address] | | | + + + + + APTT (ACT. PART. THROMBO TIME) (12/22/2000 4:10 PM PDT) + + + + + + | Component | Value | Ref Range | Performed | Pathologist | | | | | At | Signature | + + + + + + | APTT | 30.0Comment: | 27.0 - 35.0 | [facility] | | | | APTT Therapeutic Range | seconds | DEPARTMENT | | | | | | OF | | | | | | PATHOLOGY | | | | (70-110)sec | | | | | | Heparin levels | | | | | | of 0.35-0.7 U/mL | | | | + + + + + + + + | Specimen | + + | | + + + + + + + | Performing | Address | City/State/Zipcode | Phone Number | | Organization | | | | + + + + + | [facility] | [facility] | [place] [address] | | | PATHOLOGY | [address] | | | + + + + + | [facility] | [address] [place] [address] | [place] [address] | | | PATHOLOGY | [address] | | | + + + + + CHERRIE MASTER PANEL (12/22/2000 4:10 PM PDT) + + + + + + | Component | Value | Ref Range | Performed | Pathologist | | | | | At | Signature | + + + + + + | INR | 0.90 (L)Comment: | 0.98 - 1.08 INR | [facility] | | | | PT INR Therapeutic | | DEPARTMENT | | | | ranges for full | | OF | | | | anticoagulation: | | PATHOLOGY | | | | INR for | | | | | | Venous Thromboembolism | | | | | | | | | | | | (2.0-3.0)INR | | | | | | INR for most | | | | | | patients with mech. | | | | | | valves (2.5-3.5)INR | | | | + + + + + + | APTT | 30.0Comment: | 27.0 - 35.0 | [facility] | | | | APTT Therapeutic Range | seconds | DEPARTMENT | | | | | | OF | | | | | | PATHOLOGY | | | | (70-110)sec | | | | | | Heparin levels | | | | | | of 0.35-0.7 U/mL | | | | + + + + + + + + | Specimen | + + | | + + + + + + + | Performing | Address | City/State/Zipcode | Phone Number | | Organization | | | | + + + + + | [facility] | [address] | [place] [address] | | | PATHOLOGY | [address] | | | + + + + + | [facility] | [facility] | [place] [address] | | | PATHOLOGY | [address] | | | + + + + + documented in this encounter Visit Diagnoses Not on filedocumented in this encounter"
--- OUTSIDE RECORDS SUMMARY | ~2019-11-13 | XMS | Encounter Summary ---
Demographics + + + | Address | [address] | | | [place] [address] | + + + | Home Phone | | + + + | Preferred Language | Unknown | + + + | Marital Status | | + + + | Hinduism Affiliation | 1069 | + + + | Race | Unknown | + + + | Ethnic Group | Unknown | + + + Author + + + | Author | [facility] | | | and [place] | + + + | Organization | [facility] | | | and [place] | + + + | Address | Unknown | + + + | Phone | Unavailable | + + + Support + + + + + | Name | Relationship | Address | Phone | + + + + + | Daniel Daniel | ECON | [place] | | | | | [address] | | + + + + + | Katherine Daniel | ECON | [address] | | | | | [place] | | | | | [address] | | + + + + + | Katherine Daniel | ECON | [address] | | | | | [place] | | | | | [address] | | + + + + + Care Team Providers + +------+ + | Care Renewable Energy Engineer Name | Role | Phone | + +------+ + PCP | Unavailable | + +------+ + Encounter Details +--------+ + + + + | Date | Type | Department | Care Team | Description | +--------+ + + + + | 03/24/ | Hospital | [facility] | Cali Alatorre, | | | 2010 - | Encounter | [facility] | [place] [address] | | | | | [place] [address] | [place] | | | 03/27/ | | [place] | [address] | | | 2010 | | [address] | [phone] | | | | | [phone] | | | +--------+ + + + [...] is a 70 year old man from [facility] on with recurrent squamous cell carcinoma of [...] origin. 3. Initial management was at the [facility] in [place] (also known as the [facility] in [place], [place]). Treatments included intravenous high-dose vitamin C. 4. On June 06, 2002, he developed recurrent palpable lymphadenopathy in the left side of the neck that was biopsied and confirmed recurrence of squamous cell carcinoma. 5. Between 17 08 and 2003, he received intravenous chemotherapy at the [facility] in [place], [place], including insulin potentiation therapy. 6. He traveled to the [facility] where he received additional insulin potentiation therapy and intralesional injection of chemotherapy between 2003 and 2004. 7. He then cross ed over to naturopathic treatment following the Oliver regimen. 8. In December 2007, he develo ped progressive submental lymphadenopathy that was confirmed to be malignant by CT PET scan February 23, 2009. 9. On March 21, 2009, he began therapy the [facility] with sodium phenylbutyrat e, Rapamune, and oral Xeloda chemotherapy. He continued on the treatment plan with vari ous doses and schedules with stable submental lymphadenopathy until September 25, 2009. 10. He cros sed over to Vectibix chemotherapy September 25, 2009 through January 29, 2010. Repeat CT scan on February 07, 2010 at [facility] in [place], [place] demonstrated progress ion of disease with [...] a consultation with Dr. Lennon at the [facility] in [place], [place], who recommended palliative radiation therapy. He [...] to see Dr. Silas German at the [facility] in [place], [place], who noted significant decrease in the size of the submental mass. He continued on al ternative medical regimens until January 01, 2011 when he returned to the [facility] in [place], [place] and was evaluated by Dr. Bryant [...] 31.8, platelets 185,000, white count 3400. Absol [place] ira neutrophil count is 2300. Comprehensive metabolic panel is notable for slightly low pr otein at 5.8. However, his albumin is normal at 3.3. Magnesium is 1.5, up from 1.2. Gluc ose is 210, consistent with history of diabetes. Otherwise, metabolic panel is within norm al limits. ASSESSMENT: Rosas is recovering from combined modality therapy for recurrent head and nec k cancer. At this point, he feels confident that he can maintain his hydration status with out IV fluids. Therefore, we will cancel any outstanding orders for intravenous fluids and he will return [facility] the [facility] in one week to follow-up with Dr. Cali Alatorre in [facility] oncology. Follow-up in medical oncology will be open. CC: Dr. Sander Murphy <Electronically Signed by Rodger Gu MD> 03/27/11 1425 Rodger Gu MD - 02/26/2011 1:16 AM PDTPROGRESS NOTE: 03/23/2011 IDENTIFYING STATEMENT: Papo Daniel (Fritz) is a 70 year old man from [facility] on with recurrent squamous cell carcinoma of [...] <Electronically Signed by Rodger Gu MD> 03/26/11 1053 Rodger Gu MD - 02/26/2011 1:16 AM PDTPROGRESS NOTE: 03/20/2011 IDENTIFYING STATEMENT: Papo Daniel (Fritz) is a 70 year old man from [facility] on with recurrent squamous cell carcinoma of [...] origin. 3. Initial management was at the [facility] in [place] (also known as the [facility] in [place], [place]). Treatments included intravenous high-dose vitamin C. 4. On June 06, 2002, he developed recurrent palpable lymphadenopathy in the left side of the neck that was biopsied and confirmed recurrence of squamous cell carcinoma. 5. Between 17 08 and 2003, he received intravenous chemotherapy at the [facility] in [place], [place], including insulin potentiation therapy. 6. He traveled to the [facility] where he received additional insulin potentiation therapy and intralesional injection of chemotherapy between 2003 and 2004. 7. He then cross ed over to naturopathic treatment following the Oliver regimen. 8. In December 2007, he develo ped progressive submental lymphadenopathy that was confirmed to be malignant by CT PET scan February 23, 2009. 9. On March 21, 2009, he began therapy the [facility] with sodium phenylbutyrat e, Rapamune, and oral Xeloda chemotherapy. He continued on the treatment plan with vari ous doses and schedules with stable submental lymphadenopathy until September 25, 2009. 10. He cros sed over to Vectibix chemotherapy September 25, 2009 through January 29, 2010. Repeat CT scan on February 07, 2010 at [facility] in [place], [place] demonstrated progress ion of disease with [...] a consultation with Dr. Lennon at the [facility] in [place], [place], who recommended palliative radiation therapy. He [...] to see Dr. Silas German at the [facility] in [place], [place], who noted significant decrease in the size of the submental mass. He continued on al ternative medical regimens until January 01, 2011 when he returned to the [facility] in [place], [place] and was evaluated by Dr. Bryant [...] center. He will then return to the [facility] on Wednesday for additional fluids. [...] to treat p.r.n. nausea. CC: Dr. Ion Murpyh <Electronically Signed by Rodger Gu MD> 03/26/11 1055 Rodger Gu MD - 02/26/2011 1:16 AM PDTPROGRESS NOTE: 03/16/2011 IDENTIFYING STATEMENT: Papo Daniel (Fritz) is a 70 year old man from [facility] on with recurrent squamous cell carcinoma of [...] is a 70 year old man from [facility] on with recurrent squamous cell carcinoma of [...] is a 70 year old man from [facility] on with recurrent squamous cell carcinoma of [...] origin. 3. Initial management was at the [facility] in [place] (also known as the [facility] in [place], [place]). Treatments included intravenous high-dose vitamin C. 4. On June 06, 2002, he developed recurrent palpable lymphadenopathy in the left side of the neck that was biopsied and confirmed recurrence of squamous cell carcinoma. 5. Between 17 08 and 2003, he received intravenous chemotherapy at the [facility] in [place], [place], including insulin potentiation therapy. 6. He traveled to the [facility] where he received additional insulin potentiation therapy and intralesional injection of chemotherapy between 2003 and 2004. 7. He then cross ed over to naturopathic treatment following the Oliver regimen. 8. In December 2007, he develo ped progressive submental lymphadenopathy that was confirmed to be malignant by CT PET scan February 23, 2009. 9. On March 21, 2009, he began therapy the [facility] with sodium phenylbutyrat e, Rapamune, and oral Xeloda chemotherapy. He continued on the treatment plan with vari ous doses and schedules with stable submental lymphadenopathy until September 25, 2009. 10. He cros sed over to Vectibix chemotherapy September 25, 2009 through January 29, 2010. Repeat CT scan on February 07, 2010 at [facility] in [place], [place] demonstrated progress ion of disease with [...] a consultation with Dr. Lennon at the [facility] in [place], [place], who recommended palliative radiation therapy. He [...] to see Dr. Silas German at the [facility] in [place], [place], who noted significant decrease in the size of the submental mass. He continued on al ternative medical regimens until January 01, 2011 when he returned to the [facility] in [place], [place] and was evaluated by Dr. Bryant [...] is a 70 year old man from [facility] on with recurrent squamous cell carcinoma of [...] origin. 3. Initial management was at the [facility] in [place] (also known as the [facility] in [place], [place]). Treatments included intravenous high-dose vitamin C. 4. On June 06, 2002, he developed recurrent palpable lymphadenopathy in the left side of the neck that was biopsied and confirmed recurrence of squamous cell carcinoma. 5. Bet en 2001 and 2003, he received intravenous chemotherapy at the [facility] in [place], [place], including insulin potentiation therapy. 6. He traveled to the [facility] where he received additional insulin potentiation therapy and intralesional injection of chemotherapy between 2003 and 2004. 7. He then cross ed over to naturopathic treatment following the Oliver regimen. 8. In December 2007, he develo ped progressive submental lymphadenopathy that was confirmed to be malignant by CT PET scan February 23, 2009. 9. On March 21, 2009, he began therapy the [facility] with sodium phenylbutyrat e, Rapamune, and oral Xeloda chemotherapy. He continued on the treatment plan with vari ous doses and schedules with stable submental lymphadenopathy until September 25, 2009. 10. He crossed over to Vectibix chemotherapy September 25, 2009 through January 29, 2010. Repeat CT sca n on February 07, 2010 at [facility] in [place], [place] demonstrated progression of disease with increase [...] had a consultation with Dr. Lennon at [facility] in [place], [place], who recommended pa lliative radiation therapy. [...] to see Dr. Silas German at the [facility] in [place], [place], who noted significant decrease in the size of the submental mass. He con tinued on alternative medical regimens until January 01, 2011 when he returned to the [facility] in [place], [place] and was evaluated by Dr. Eddi [...] is a 70 year old man from [facility] on with recurrent squamous cell carcinoma of [...] is a 70 year old man from [facility] on with recurrent squamous cell carcinoma of [...] origin. 3. Initial management was at the [facility] in [place] (also known as the [facility] in [place], [place]). Treatments included intravenous high-dose vitamin C. 4. On June 06, 2002, he developed recurrent palpable lymphadenopathy in the left side of the neck that was biopsied and confirmed recurrence of squamous cell carcinoma. 5. Between 17 08 and 2003, he received intravenous chemotherapy at the [facility] in [place], [place], including insulin potentiation therapy. 6. He traveled to the [facility] where he received additional insulin potentiation therapy and intralesional injection of chemotherapy between 2003 and 2004. 7. He then cross ed over to naturopathic treatment following the Oliver regimen. 8. In December 2007, he develo ped progressive submental lymphadenopathy that was confirmed to be malignant by CT PET scan February 23, 2009. 9. On March 21, 2009, he began therapy the [facility] with sodium phenylbutyrat e, Rapamune, and oral Xeloda chemotherapy. He continued on the treatment plan with vari ous doses and schedules with stable submental lymphadenopathy until September 25, 2009. 10. He cros sed over to Vectibix chemotherapy September 25, 2009 through January 29, 2010. Repeat CT scan on February 07, 2010 at [facility] in [place], [place] demonstrated progress ion of disease with [...] a consultation with Dr. Lennon at the [facility] in [place], [place], who recommended palliative radiation therapy. He [...] to see Dr. Silas German at the [facility] in [place], [place], who noted significant decrease in the size of the submental mass. He continued on a lternative medical regimens until January 01, 2011 when he returned to the [facility] in [place], [place] and was evaluated by Dr. Bryant [...] is a 70 year old man from [facility] on with recurrent squamous cell carcinoma of [...] origin. 3. Initial management was at the [facility] in [place] (also known as the [facility] in [place], [place]). Treatments included intravenous high-dose vitamin C. 4. On June 06, 2002, he developed recurrent palpable lymphadenopathy in the left side of the neck that was biopsied and confirmed recurrence of squamous cell carcinoma. 5. Between 17 08 and 2003, he received intravenous chemotherapy at the [facility] in [place], [place], including insulin potentiation therapy. 6. He traveled to the [facility] where he received additional insulin potentiation therapy and intralesional injection of chemotherapy between 2003 and 2004. 7. He then cross ed over to naturopathic treatment following the Oliver regimen. 8. In December 2007, he develo ped progressive submental lymphadenopathy that was confirmed to be malignant by CT PET scan February 23, 2009. 9. On March 21, 2009, he began therapy the [facility] with sodium phenylbutyrat e, Rapamune, and oral Xeloda chemotherapy. He continued on the treatment plan with vari ous doses and schedules with stable submental lymphadenopathy until September 25, 2009. 10. He cros sed over to Vectibix chemotherapy September 25, 2009 through January 29, 2010. Repeat CT scan on February 07, 2010 at [facility] in [place], [place] demonstrated progress ion of disease with [...] a consultation with Dr. Lennon at the [facility] in [place], [place], who recommended palliative radiation therapy. He [...] to see Dr. Silas German at the [facility] in [place], [place], who noted significant decrease in the size of the submental mass. He continued on a lternative medical regimens until January 01, 2011 when he returned to the [facility] in [place], [place] and was evaluated by Dr. Bryant [...] purposes. [facility], and a cone beam CT scan was performed. That CT scan was overlaid on his planning CT scan, and appropriate 3-D translational shifts were made to ensure proper alignment. Once the images had been approved by myself, the patient's treatment was delivered. DICTATED BY: Cali Alatorre MD Radiation Oncology JOB #: [id number] EXT JOB #:[id number] <Electronicall y Signed by Cali Alatorre MD> [...] Cali Alatorre MD Radiation Oncology JOB #: [id number] EXT JOB #:[id number] <Electronicall y Signed by Cali Alatorre MD> 03/14/11 09 Rodger Gu MD - 02/26/2011 1:16 AM PDTPROGRESS NOTE 03/05/2011 IDENTIFYING STATEMENT: Papo Daneil (Fritz) is a 70 year old man from [facility] on with recurrent squamous cell carcinoma of [...] is a 70 year old man from [facility] on with recurrent squamous cell carcinoma of [...] origin. 3. Initial management was at the [facility] in [place] (also known as the [facility] in [place], [place]). Treatments included intravenous high-dose vitamin C. 4. On June 06, 2002, he developed recurrent palpable lymphadenopathy in the left side of the neck that was biopsied and confirmed recurrence of squamous cell carcinoma. 5. Between 17 08 and 2003, he received intravenous chemotherapy at the [facility] in [place], [place], including insulin potentiation therapy. 6. He traveled to the [facility] where he received additional insulin potentiation therapy and intralesional injection of chemotherapy between 2003 and 2004. 7. He then cross ed over to naturopathic treatment following the Oliver regimen. 8. In December 2007, he develo ped progressive submental lymphadenopathy that was confirmed to be malignant by CT PET scan February 23, 2009. 9. On March 21, 2009, he began therapy the [facility] with sodium phenylbutyrat e, Rapamune, and oral Xeloda chemotherapy. He continued on the treatment plan with vari ous doses and schedules with stable submental lymphadenopathy until September 25, 2009. 10. He cros sed over to Vectibix chemotherapy September 25, 2009 through January 29, 2010. Repeat CT scan on February 07, 2010 at [facility] in [place], [place] demonstrated progress ion of disease with [...] a consultation with Dr. Lennon at the [facility] in [place], [place], who recommended palliative radiation therapy. He [...] to see Dr. Silas German at the [facility] in [place], [place], who noted significant decrease in the size of the submental mass. He continued on a lternative medical regimens until January 01, 2011 when he returned to the [facility] in [place], [place] and was evaluated by Dr. Bryant [...] Cali Alatorre MD Radiation Oncology JOB #: [id number] EXT JOB #:[id number] <Electronicall y Signed by Cali Alatorre MD> [...] | | | | | [facility] [place] [place] | | | | | | [id number] | | | | | | | [...] [address] | [place] | [phone] | | [facility] | | [address] | | | - LABORATORY | | | | + + + + + | [address] | [address] | [place] | | | [facility] | | [id number] | | | - LABORATORY | [...] + | [facility] | [address] | [place], [place] | [phone] | | [facility] | | [address] | | | - LABORATORY | | | | + + + + + | [facility] | [address] | [place], [place] | | | [facility] | | [id number] | | | - LABORATORY | [...] [address] | [place] | [phone] | | [facility] | | [address] | | | - LABORATORY | | | | + + + + + | [facility] [facility] | [address] | [place] | | | [facility] | | [address], [facility] | | | - LABORATORY [...] [facility] | | | | | | [facility] | | | | | | CENTER [...] + | [facility] | [address] | [place], [place] | [phone] | | [facility] | | [address] | | | - LABORATORY | | | | + + + + + | [facility] | [address] | [place], [place] | | | [facility] | | [id number] | | | - LABORATORY | [...] + | [facility] | [address] | [place], [place] | [phone] | | [facility] | | [address] | | | - LABORATORY | | | | + + + + + | [facility] | [address] | [place], [place] | | | [facility] | | [address] [place] [address] | | | - LABORATORY | | [...] + | [facility] | [address] | [place] | [phone] | | [facility] | | [address] | | | - LABORATORY | | | | + + + + + | [facility] | [address] | [place] | | | [facility] | | [address], [facility] | | | - LABORATORY [...] + | [facility] | [address] | [place], [place] | [phone] | | [facility] | | [address] | | | - LABORATORY | | | | + + + + + | [facility] | [address] | [place], [place] | | | [facility] | | [facility], [facility] | | | - LABORATORY [...] 0.0 | 0.0 - 0.1 K/uL | AFBIAN | | | Basophils | | | [...] [address] | [place] | [phone] | | [facility] | | [address] | | | - LABORATORY | | | | + + + + + | [facility] [facility] | [address] | [place], [place] | | | [facility] | | [id number] | | | - LABORATORY | [...] + | [facility] | [address] | [place] | [phone] | | [facility] | | [address] | | | - LABORATORY | | | | + + + + + | [facility] | [address] | [place] | | | [facility] | | [id number] | | | - LABORATORY | [...] + | [facility] | [address] | [place], [place] | [phone] | | [facility] | | [address] | | | - LABORATORY | | | | + + + + + | [facility] | [address] | [place], [place] | | | [facility] | | [address] [place] [address] | | | - LABORATORY | | [...] + | [facility] | [address] | [place] | [phone] | | [facility] | | [address] | | | - LABORATORY | | | | + + + + + | [address] [facility] | [address] | [place], [place] | | | [facility] | | [id number] | | | - LABORATORY | [...] + | [facility] | [address] | [place], [place] | [phone] | | [facility] | | [address] | | | - LABORATORY | | | | + + + + + | [facility] | [address] | [place] | | | [facility] | | [id number] | | | - LABORATORY | [...] | ine Ratio | | | . DORIE | | [...] + | [facility] | [address] | [place], [place] | [phone] | | [facility] | | [address] | | | - LABORATORY | | | | + + + + + | [facility] | [address] | [place], [place] | | | [facility] | | [facility], [facility] | | | - LABORATORY [...] + | [facility] | [address] | [place] | [phone] | | [facility] | | [address] | | | - LABORATORY | | | | + + + + + | [facility] | [address] | [place], [place] | | | [facility] | | [id number] | | | - LABORATORY | [...] + | [facility] | [address] | [place], [place] | [phone] | | [facility] | | [address] | | | - LABORATORY | | | | + + + + + | [facility] | [address] | [place], [place] | | | [facility] | | [id number] | | | - LABORATORY | [...] [address] | [place] | [phone] | | [facility] | | [address] | | | - LABORATORY | | | | + + + + + | [facility] | [address] | [place], [place] | | | [facility] | | [id number] | | | - LABORATORY | | | | + + + + + documented in this encounter Visit Diagnoses Not on filedocumented in this encounter"
--- OUTSIDE RECORDS SUMMARY | ~2019-11-13 | XMS | Encounter Summary ---
Demographics + + + | Address | [address] | | | [place] [address] | + + + | Home Phone | | + + + | Preferred Language | Unknown | + + + | Marital Status | | + + + | Sabianism Affiliation | 1069 | + + + | Race | Unknown | + + + | Ethnic Group | Unknown | + + + Author + + + | Author | [facility] | | | and [place] | + + + | Organization | [facility] | | | and [place] | + + + | Address | Unknown | + + + | Phone | Unavailable | + + + Support + + + + + | Name | Relationship | Address | Phone | + + + + + | Daniel Daniel | ECON | [place] | | | | | [address] | | + + + + + | Katherine Daniel | ECON | [address] | | | | | [place] | | | | | [address] | | + + + + + | Katherine Daniel | ECON | [address] | | | | | [place] | | | | | [address] | | + + + + + Care Team Providers + +------+ + | Care Meat Sales And Storage Manager Name | Role | Phone | + +------+ + PCP | Unavailable | + +------+ + Encounter Details +--------+ + + + + | Date | Type | Department | Care Team | Description | +--------+ + + + + | 01/20/ | Hospital | [facility] | | | | 2010 - | Encounter | [facility] [address] | | | | 01/25/ | | [place] | | | | 2010 | | [address] | | | | | | [phone] | | | +--------+ + + + [...] is a 70 year old man from [facility] on with recurrent squamous cell carcinoma [...] origin. 3. Initial management was at the [facility] in [place] (also known as the [facility] in [place], [place]). Treatments included intravenous high-dose vitamin C. 4. On June 06, 2002, he developed recurrent palpable lymphadenopathy in the left side of the neck that was biopsied and confirmed recurrence of squamous cell carcinoma. 5. Between 17 08 and 2003, he received intravenous chemotherapy at the [facility] in [place], [place], including insulin potentiation therapy. 6. He traveled to the [facility] where he received additional insulin potentiation therapy and intralesional injection of chemotherapy between 2003 and 2004. 7. He then cross ed over to naturopathic treatment following the Oliver regimen. 8. In December 2007, he develo ped progressive submental lymphadenopathy that was confirmed to be malignant by CT PET scan February 23, 2009. 9. On March 21, 2009, he began therapy the [facility] with sodium phenylbutyrat e, Rapamune, and oral Xeloda chemotherapy. He continued on the treatment plan with vari ous doses and schedules with stable submental lymphadenopathy until September 25, 2009. 10. He cros sed over to Vectibix chemotherapy September 25, 2009 through January 29, 2010. Repeat CT scan on February 07, 2010 at [facility] in [place], [place] demonstrated progres susannah of disease with [...] a consultation with Dr. Lennon at the [facility] in [place], [place], who recommended palliative radiation therapy. He [...] to see Dr. Silas German at the [facility] in [place], [place], who noted significant decrease in the size of the submental mass. He continued on a lternative medical regimens until January 01, 2011 when he returned to the [facility] in [place], [place] and was evaluated by Dr. Bryant [...] of 30%. 3. Hypertension. 4. Hypercholesterolemia. 5. Kqq-ggldnbv-gpspsmabu diabetes. PAST SURGICAL HISTORY: 1. Coronary artery bypass graft in 1988. 2. Neck dissection at [facility] in 2000. 3. 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 He is to Katherine, who comes to [...] reviewed the possible risks and outcomes of forest fire management officer al beam radiation to the head and [...] Bryant Navas MD Radiation Oncology JOB #: [id number] EXT JOB #:[id number] EDITED: 01/14/2011 12:26 <Electronically Signed by Bryant [...] Bryant Navas MD Radiation Oncology JOB #: [id number] EXT JOB #:[id number] EDITED: 01/02/2011 05:42 <Electronically Signed by Bryant [...] SAINI | | | | | | [address] | | | | | | | | +--------+ + + + + documented as of this encounter Visit Diagnoses Not on filedocumented in this encounter
--- OUTSIDE RECORDS SUMMARY | ~2019-11-13 | XMS | Encounter Summary ---
Demographics + + + | Address | [address] | | | [place] [address] | + + + | Home Phone | | + + + | Preferred Language | Unknown | + + + | Marital Status | | + + + | Hoahaoism Affiliation | EPI | + + + | Race | White | + + + | Ethnic Group | Not or | + + + Author + + + | Author | [facility] | + + + | Organization | [facility] | + + + | Address | Unknown | + + + | Phone | Unavailable | + + + Support + + +---------+ + | Name | Relationship | Address | Phone | + + +---------+ + | Katherine Daniel | ECON | Unknown | | + + +---------+ + Care Team Providers + +------+ + | Care Erp Technical Lead Name | Role | Phone | + +------+ + PCP | Unavailable | + +------+ + Encounter Details +--------+ + + + + | Date | Type | Department | Care Team | Description | +--------+ + + + + | 03/01/ | Office | [facility] | Note, [...] as of this encounter Progress Notes Interface, In Flight Technician In - 04/07/2006 3:12 AM PDTCLINIC DATE: 03/01/2001 OTOLARYNGOLOGY CLINIC SUBJECTIVE: Mr. Daniel returns for a 6-week followup visit. He is doing well aside from some fatigue. He has no complaints. PHYSICAL EXAMINATION: GENERAL: He looks well. NECK: His neck incision has healed nicely. There is no adenopathy palpable on either side of the neck. HEENT: Intraorally, no mucosal lesions are seen. Examination of the oropharynx, hypopharynx, and larynx is easily accomplished using an indirect laryngoscope. No evidence of disease here. IMPRESSION AND PLAN: Doing well after modified neck resection for unknown primary carcinoma. He has elected to continue with close followup rather than head and neck radiation, and he will return here for followup visit in 1 month. Edis Hatch M.D. Passenger Conductor, Otolaryngology [facility] / [id number] / [id number] / [id number] / [id number] cc: Anand Lackey M.D. [address] [place] [address] Austin Espinosa M.D. [address] [place] [id number] signed by Interface, In Flight Technician In at 04/07/2006 3:12 AM PDTdocume nted in this encounter Plan of Treatment Not on filedocumented as of this encounter Visit Diagnoses Not on filedocumented in this encounter"
--- OUTSIDE RECORDS SUMMARY | ~2019-11-13 | XMS | Encounter Summary ---
Demographics + + + | Address | [address] | | | [place] [address] | + + + | Home Phone | | + + + | Preferred Language | Unknown | + + + | Marital Status | | + + + | Druze Affiliation | EPI | + + + | Race | White | + + + | Ethnic Group | Not or | + + + Author + + + | Author | [facility] | + + + | Organization | [facility] | + + + | Address | Unknown | + + + | Phone | Unavailable | + + + Support + + +---------+ + | Name | Relationship | Address | Phone | + + +---------+ + | Katherine Daniel | ECON | Unknown | | + + +---------+ + Care Team Providers + +------+ + | Care Cushion Former Name | Role | Phone | + +------+ + PCP | Unavailable | + +------+ + Encounter Details +--------+ + + + + | Date | Type | Department | Care Team | Description | +--------+ + + + + | 10/05/ | Office | [facility] | Note, [...] as of this encounter Progress Notes Interface, Deposit Clerk In - 03/06/2006 1:02 AM PDTCLINIC DATE: 10/05/2001 OTOLARYNGOLOGY CLINIC Mr. Daniel returns for a followup visit. It has been 6 weeks since I have seen him, and he is doing well without complaints. PHYSICAL EXAMINATION: GENERAL: He looks well. VITAL SIGNS: His weight is 186 pounds, it is down 3 pounds from May 2001. NECK: Well healed. There is no adenopathy palpable on either side of the neck. Intraorally, no mucosal lesions are seen. I sprayed his nose using phenylephrine and lidocaine and examined him using a flexible scope. The nasal cavity, nasopharynx, oropharynx, hypopharynx, and larynx were all visualized, and there is no evidence of any disease here. IMPRESSION: Doing well without evidence of recurrence, now approaching 1 year after treatment of an unknown primary squamous cell carcinoma. He is going to return for a followup visit in 6 weeks. Edis Hatch M.D. Liquor Blender, Otolaryngology [facility] / [id number] / [id number] / [id number] / [id number] signed by Interface, Deposit Clerk In at 03/06/2006 1:02 AM PDTdoc umented in this encounter Plan of Treatment Not on filedocumented as of this encounter Visit Diagnoses Not on filedocumented in this encounter"
--- OUTSIDE RECORDS SUMMARY | ~2019-11-13 | XMS | Encounter Summary ---
Demographics + + + | Address | [address] | | | [place] [address] | + + + | Home Phone | | + + + | Preferred Language | Unknown | + + + | Marital Status | | + + + | Religion Affiliation | 1069 | + + + | Race | Unknown | + + + | Ethnic Group | Unknown | + + + Author + + + | Author | [facility] | | | and [place] | + + + | Organization | [facility] | | | and [place] | + + + | Address | Unknown | + + + | Phone | Unavailable | + + + Support + + + + + | Name | Relationship | Address | Phone | + + + + + | Daniel Daniel | ECON | [place] | | | | | [address] | | + + + + + | Katherine Daniel | ECON | [address] | | | | | [place] | | | | | [address] | | + + + + + | Katherine Daniel | ECON | [address] | | | | | [place] | | | | | [address] | | + + + + + Care Team Providers + +------+ + | Care Inspector Fabric Name | Role | Phone | + [...] | | | | [address] | [place] [address] | | | | | [place] [address] | | | | | | [phone] | | | +--------+ + + + [...] | | | | | [place], [place] | | | | | | [address] | | | | | | | | +--------+ + + + + documented as of this encounter Procedures + +--------+ + + + | Procedure Name | Priori | Date/Time | Associated Diagnosis | Comments | | | ty | | | | + +--------+ + + + | DEXA BONE DENSITY | Routin | 04/12/2018 | | Results for this | | STUDY FAIZAN العراقي | e | 9:20 AM | | procedure are in the | | ASSESSMENT | | PDT | | results section. | + +--------+ + + + documented in this encounter Results DEXA Bone Density faizan العراقي Assmt (04/12/2018 9:20 AM PDT) + + | Specimen | + [...]
--- OUTSIDE RECORDS SUMMARY | ~2019-11-13 | XMS | Encounter Summary ---
Demographics + + + | Address | [address] | | | [place] [address] | + + + | Home Phone | | + + + | Preferred Language | Unknown | + + + | Marital Status | | + + + | Advent Affiliation | [id number] | + + + | Race | Unknown | + + + | Ethnic Group | Unknown | + + + Author + + + | Author | [facility] | | | and [place] | + + + | Organization | [facility] | | | and [place] | + + + | Address | Unknown | + + + | Phone | Unavailable | + + + Support + + + + + | Name | Relationship | Address | Phone | + + + + + | Daniel Daniel | ECON | [place] | | | | | [address] | | + + + + + | Katherine Daniel | ECON | [address] | | | | | [place] | | | | | [address] | | + + + + + | Katherine Daniel | ECON | [address] | | | | | [place] | | | | | [address] | | + + + + + Care Team Providers + +------+ + | Care Hand Former Name | Role | Phone | + +------+ + | Tracie Cm MD | PCP | | + +------+ + Encounter Details +--------+ + + + + | Date | Type | Department | Care Team | Description | +--------+ + + + + | 10/13/ | Orders Only | [facility] | [place] | | | 2018 | | [address] | [address] | | | | | [address] | [address] [place], | | | | | [place], [place] | [place] [address] | | | | | [address] | [phone] | | | | | [phone] | | | +--------+ + + + [...] | | | | | [place] | | | | | | [address] | | | | | | | | +--------+ + + + + documented as of this encounter Procedures + +--------+ + + + | Procedure Name | Priori | Date/Time | Associated Diagnosis | Comments | | | ty | | | | + +--------+ + + + | ECHO INTERPRETATION | Routin | 10/13/2017 | | Results for this | | OF OUTSIDE FILMS | e | 2:33 PM | | procedure are in the | | | | PDT | | results section. | + +--------+ + + + documented in this encounter Results ECHO Interpretation of Outside Films (10/13/2017 2:33 PM PDT) + + | Specimen | + + | | + + + + + | Impressions | Performed At | + + + | 1. The left ventricle is normal in size with moderately impaired | | | systolic function EF 35-40%. 2. There is septal flattening in | | | diastole and systole which is consistent with right ventricular | | | pressure. 3. The right ventricle is severely enlarged with moderately | | | impaired systolic function. 4. The aortic valve is moderately | | | calcified with moderate to severe stenosis. 5. Mitral Clip is noted, | | | mild mitral stenosis and moderate regurgitation. 6. Severe tricuspid | | | regurgitation with severe pulmonary hypertension. 7. There is no | | | pericardial effusion. 8. Patent mitral clip puncture shunt with | | | bidirectional flow mostly left to right. | | + + + + + + | Narrative | Performed At | + + + | Patient Name: Ti Daniel Date of : 1940 | | | Performing Physician: Yasmin Bates | | | | | | INDICATIONS S/P Mitral valve repair CONCLUSIONS | | | 1. The left ventricle is normal in size with moderately | | | impaired systolic function EF 35-40%. 2. There is septal flattening | | | in diastole and systole which is consistent with right ventricular | | | pressure. 3. The right ventricle is severely enlarged with moderately | | | impaired systolic function. 4. The aortic valve is moderately | | | calcified with moderate to severe stenosis. 5. Mitral Clip is noted, | | | mild mitral stenosis and moderate regurgitation. 6. Severe tricuspid | | | regurgitation with severe pulmonary hypertension. 7. There is no | | | pericardial effusion. 8. Patent mitral clip puncture shunt with | | | bidirectional flow mostly left to right. FINDINGS -------- ECG | | | rhythm: Paced rhythm. Study: A 2-dimensional transthoracic | | | echocardiogram with m-mode, spectral and color flow Doppler was | | | perfomed. Study: This was a technically adequate study. Left | | | Ventricle: Overall left ventricular systolic function is moderately | | | impaired with, an EF between 35 - 40 %. Left Ventricle: The left | | | ventricle cavity size is normal. Left Ventricle: Left ventricular | | | wall thickness is normal. Left Ventricle: There is moderate global | | | hypokinesis of LV contractility. Left Ventricle: There is septal | | | flattening in diastole and systole which is consistent with right | | | ventricular pressure and volume overload. Right Ventricle: The right | | | ventricle is severely enlarged. Right Ventricle: The right | | | ventricular systolic function is moderately impaired. Right | | | Ventricle: Pacer/ICD wire seen. Left Atrium: The left atrium is | | | markedly enlarged. Right Atrium: The right atrium is markedly | | | enlarged. Right Atrium: Pacemaker wire seen in the right atrial | | | cavity. Aortic Valve: The aortic valve appears to be trileaflet. | | | Aortic Valve: The aortic valve is moderately calcified. Aortic Valve: | | | Severe aortic stenosis with peak/mean pressure gradient of 27.16mmHg | | | / 15.87mmHg, the aortic valve area by continuity equation is | | | 0.9cm . Mitral Valve: Moderate mitral regurgitation is present. | | | Mitral Valve: Mild mitral stenosis. Mitral Valve: Mitral Clip is | | | noted. Tricuspid Valve: The tricuspid valve appears structurally | | | normal. Tricuspid Valve: Severe tricuspid regurgitation present. | | | Tricuspid Valve: There is severe pulmonary hypertension. Tricuspid | | | Valve: The right ventricular systolic pressure (pulmonary artery | | | systolic pressure), as measured by Doppler, is 60.05mmHg. Pulmonic | | | Valve: The pulmonic valve is normal. Pulmonic Valve: Moderate | | | pulmonic regurgitation. Pericardium: There is no pericardial | | | effusion. Pericardium: No pleural effusion seen. IVC/Hepatic Veins: | | | The IVC is dilated (>2.5cm) and collapses <50% with sniff, consistent | | | with central venous pressures of 15-20mmHg. Aorta: The aortic root, | | | ascending aorta and aortic arch are normal. Septum: Patent mitral | | | clip puncture shunt with bidirectional flow mostly left to right. | | | MEASUREMENTS Ao asc: 3.49 cm Ao Diam: 3.51 cm | | | Ao sinus: 3.[address] junct: 3.43 cm IVC: 3.51 cm LA | | | Diam: 5.74 cm LA Major: 6.39 cm EDV(Teich): 169.08 ml | | | IVSd: 0.98 cm LVIDd: 5.83 cm LVPWd: 1.00 cm LVOT Area: | | | 4.21 cm2 LVOT Diam: 2.31 cm %FS: 14.30 % EF(Teich): 29.96 | | | % ESV(Teich): 118.42 ml LVIDs: 5.00 cm SV(Teich): 50.66 ml | | | RA Major: 6.32 cm RV Major: 10.04 cm RV Minor: 4.94 cm | | | RVIDd: 4.45 cm LVEF MOD A2C: 39.94 % SV MOD A2C: 78.14 ml | | | LVEF MOD A4C: 33.26 % SV MOD A4C: 49.36 ml EF Biplane: | | | 36.50 % LVEDV MOD BP: 175.39 ml LVESV MOD BP: 111.36 ml LVEDV | | | MOD A2C: 195.65 ml LVLd A2C: 9.14 cm LVEDV MOD A4C: 148.37 | | | ml LVLd A4C: 8.61 cm LVESV MOD A2C: 117.50 ml LVLs A2C: | | | 8.39 cm LVESV MOD A4C: 99.01 ml LVLs A4C: 7.81 cm LAESV(A-L): | | | 134.24 ml LAESV Index (A-L): 67.12 ml/m2 LAAs A2C: 29.66 | | | cm2 LAESV A-L A2C: 125.88 ml LALs A2C: 5.93 cm LAAs A4C: | | | 31.63 cm2 LAESV A-L A4C: 126.90 ml LALs A4C: 6.69 cm RAAs: | | | 29.47 cm2 RAESV A-L: 109.74 ml RAESV MOD: 106.61 ml RALs: | | | 6.72 cm TAPSE: 2.05 cm AV maxP.15 mmHg AV meanPG: | | | 15.87 mmHg AV Vmax: 2.58 m/s AV Vmean: 1.86 m/s AV VTI: | | | 60.10 cm MARLI Vmax: 1.01 cm2 MARLI (VTI): 0.85 cm2 AVAI Vmax: | | | 0.00 cm2/m2 AVAI (VTI): 0.00 cm2/m2 LVOT maxP.55 mmHg | | | LVOT meanP.81 mmHg LVSI Dopp: 25.63 ml/m2 LVSV Dopp: | | | 51.26 ml LVOT Vmax: 0.62 m/s LVOT Vmean: 0.42 m/s LVOT VTI: | | | 12.16 cm MV A Kevin: 0.12 m/s MV DecT: 449.28 ms MV E Kevin: | | | 1.76 m/s MV E/A Ratio: 14.5 MV PHT: 130.29 ms MVA By PHT: | | | 1.68 cm2 MV maxP.45 mmHg MV meanP.50 mmHg MV | | | Vmax: 1.76 m/s MV Vmean: 0.93 m/s MV VTI: 43.74 cm MVA | | | (VTI): 1.17 cm2 Septal e': 0.06 m/s Septal E/e': 27.97 | | | Lateral e': 0.08 m/s Lateral E/e': 19.98 RAP: 20 mmHg | | | RVSP: 60.05 mmHg TR maxP.05 mmHg TR Vmax: 3.16 m/s | | | De Ionizer Operator: Authenticated by: Yasmin Bates Report Date/Time: | | | 10-14-2017 13:58:4 | | + + + + + | Procedure Note | + + | Derrick, Rad Conversion - 02/16/2019 2:53 PM PDT Patient Name: Ashlyn Daniel of | | : 1940 Performing Physician: Yasmin | | [place] INDICATIONS------ | | -----S/P Mitral valve repair CONCLUSIONS 1. The left ventricle is normal in | | size with moderately impaired systolic function EF 35-40%.2. There is septal flattening | | in diastole and systole which is consistent with right ventricular pressure.3. The right | | ventricle is severely enlarged with moderately impaired systolic function.4. The aortic | | valve is moderately calcified with moderate to severe stenosis.5. Mitral Clip is noted, | | mild mitral stenosis and moderate regurgitation.6. Severe tricuspid regurgitation with | | severe pulmonary hypertension.7. There is no pericardial effusion.8. Patent mitral clip | | puncture shunt with bidirectional flow mostly left to right. FINDINGS--------ECG rhythm: | | Paced rhythm.Study: A 2-dimensional transthoracic echocardiogram with m-mode, spectral | | and color flow Doppler was perfomed.Study: This was a technically adequate study.Left | | Ventricle: Overall left ventricular systolic function is moderately impaired with, an EF | | between 35 - 40 %.Left Ventricle: The left ventricle cavity size is normal.Left | | Ventricle: Left ventricular wall thickness is normal.Left Ventricle: There is moderate | | global hypokinesis of LV contractility.Left Ventricle: There is septal flattening in | | diastole and systole which is consistent with right ventricular pressure and volume | | overload.Right Ventricle: The right ventricle is severely enlarged.Right Ventricle: The | | right ventricular systolic function is moderately impaired.Right Ventricle: Pacer/ICD | | wire seen.Left Atrium: The left atrium is markedly enlarged.Right Atrium: The right | | atrium is markedly enlarged.Right Atrium: Pacemaker wire seen in the right atrial | | cavity.Aortic Valve: The aortic valve appears to be trileaflet.Aortic Valve: The aortic | | valve is moderately calcified.Aortic Valve: Severe aortic stenosis with peak/mean | | pressure gradient of 27.16mmHg / 15.87mmHg, the aortic valve area by continuity equation | | is 0.9cm .Mitral Valve: Moderate mitral regurgitation is present.Mitral Valve: | | Mild mitral stenosis.Mitral Valve: Mitral Clip is noted.Tricuspid Valve: The tricuspid | | valve appears structurally normal.Tricuspid Valve: Severe tricuspid regurgitation | | present.Tricuspid Valve: There is severe pulmonary hypertension.Tricuspid Valve: The | | right ventricular systolic pressure (pulmonary artery systolic pressure), as measured by | | Doppler, is 60.05mmHg.Pulmonic Valve: The pulmonic valve is normal.Pulmonic Valve: | | Moderate pulmonic regurgitation.Pericardium: There is no pericardial | | effusion.Pericardium: No pleural effusion seen.IVC/Hepatic Veins: The IVC is dilated | | (>2.5cm) and collapses <50% with sniff, consistent with central venous pressures of | | 15-20mmHg.Aorta: The aortic root, ascending aorta and aortic arch are normal.Septum: | | Patent mitral clip puncture shunt with bidirectional flow mostly left to right. | | MEASUREMENTS Ao asc: 3.49 cmAo Diam: 3.51 cmAo sinus: 3.[address] | | junct: 3.43 cmIVC: 3.51 cmLA Diam: 5.74 cmLA Major: 6.39 cmEDV(Teich): 169.08 | | mlIVSd: 0.98 cmLVIDd: 5.83 cmLVPWd: 1.00 cmLVOT Area: 4.21 [id number] Diam: 2.31 | | cm%FS: 14.30 %EF(Teich): 29.96 %ESV(Teich): 118.42 mlLVIDs: 5.00 cmSV(Teich): | | 50.66 mlRA Major: 6.32 cmRV Major: 10.04 cmRV Minor: 4.94 cmRVIDd: 4.45 cmLVEF | | MOD A2C: 39.94 %SV MOD A2C: 78.14 mlLVEF MOD A4C: 33.26 %SV MOD A4C: 49.36 mlEF | | Biplane: 36.50 %LVEDV MOD BP: 175.39 mlLVESV MOD BP: 111.36 mlLVEDV MOD A2C: | | 195.65 mlLVLd A2C: 9.14 cmLVEDV MOD A4C: 148.37 mlLVLd A4C: 8.61 cmLVESV MOD A2C: | | 117.50 mlLVLs A2C: 8.39 cmLVESV MOD A4C: 99.01 mlLVLs A4C: 7.81 cmLAESV(A-L): | | 134.24 mlLAESV Index (A-L): 67.12 ml/m2LAAs A2C: 29.66 [id number] A-L A2C: 125.88 | | mlLALs A2C: 5.93 cmLAAs A4C: 31.63 [id number] A-L A4C: 126.90 mlLALs A4C: 6.69 | | cmRAAs: 29.47 [id number] A-L: 109.74 mlRAESV MOD: 106.61 mlRALs: 6.72 cmTAPSE: | | 2.05 cmAV maxP.15 mmHgAV meanP.87 mmHgAV Vmax: 2.58 m/Naima Vmean: 1.86 | | m/Naima VTI: 60.10 cmAVA Vmax: 1.01 cm2AVA (VTI): 0.85 [id number] Vmax: 0.00 | | cm2/m2AVAI (VTI): 0.00 cm2/m2LVOT maxP.55 mmHgLVOT meanP.81 mmHgLVSI Dopp: | | 25.63 ml/m2LVSV Dopp: 51.26 mlLVOT Vmax: 0.62 m/sLVOT Vmean: 0.42 m/sLVOT VTI: | | 12.16 cmMV A Kevin: 0.12 m/sMV DecT: 449.28 msMV E Kevin: 1.76 m/sMV E/A Ratio: | | 14.5MV PHT: 130.29 msMVA By PHT: 1.68 cm2MV maxP.45 mmHgMV meanP.50 | | mmHgMV Vmax: 1.76 m/sMV Vmean: 0.93 m/sMV VTI: 43.74 cmMVA (VTI): 1.17 [id number] | | e': 0.06 m/sSeptal E/e': 27.97Lateral e': 0.08 m/sLateral E/e': 19.98RAP: 20 | | mmHgRVSP: 60.05 mmHgTR maxP.05 mmHgTR Vmax: 3.16 m/s | | De Ionizer Operator:Authenticated by: Yasmin More Date/Time: 10-14-2017 13:58:4 | | IMPRESSION: 1. The left ventricle is normal in size with moderately impaired systolic | | function EF 35-40%.2. There is septal flattening in diastole and systole which is | | consistent with right ventricular pressure.3. The right ventricle is severely enlarged | | with moderately impaired systolic function.4. The aortic valve is moderately calcified | | with moderate to severe stenosis.5. Mitral Clip is noted, mild mitral stenosis and | | moderate regurgitation.6. Severe tricuspid regurgitation with severe pulmonary | | hypertension.7. There is no pericardial effusion.8. Patent mitral clip puncture shunt | | with bidirectional flow mostly left to right. | |EDV(Teich): 169.08 ml | |IVSd: 0.98 cm | |LVIDd: 5.83 cm | |LVPWd: 1.00 cm | |LVOT Area: 4.21 cm2 | |LVOT Diam: 2.31 cm | |%FS: 14.30 % | |EF(Teich): 29.96 % | |ESV(Teich): 118.42 ml | |LVIDs: 5.00 cm | |SV(Teich): 50.66 ml | |RA Major: 6.32 cm | |RV Major: 10.04 cm | |RV Minor: 4.94 cm | |RVIDd: 4.45 cm | |LVEF MOD A2C: 39.94 % | |SV MOD A2C: 78.14 ml | |LVEF MOD A4C: 33.26 % | |SV MOD A4C: 49.36 ml | |EF Biplane: 36.50 % | |LVEDV MOD BP: 175.39 ml | |LVESV MOD BP: 111.36 ml | |LVEDV MOD A2C: 195.65 ml | |LVLd A2C: 9.14 cm | |LVEDV MOD A4C: 148.37 ml | |LVLd A4C: 8.61 cm | |LVESV MOD A2C: 117.50 ml | |LVLs A2C: 8.39 cm | |LVESV MOD A4C: 99.01 ml | |LVLs A4C: 7.81 cm | |LAESV(A-L): 134.24 ml | |LAESV Index (A-L): 67.12 ml/m2 | |LAAs A2C: 29.66 cm2 | |LAESV A-L A2C: 125.88 ml | |LALs A2C: 5.93 cm | |LAAs A4C: 31.63 cm2 | |LAESV A-L A4C: 126.90 ml | |LALs A4C: 6.69 cm | |RAAs: 29.47 cm2 | |RAESV A-L: 109.74 ml | |RAESV MOD: 106.61 ml | |RALs: 6.72 cm | |TAPSE: 2.05 cm | |AV maxP.15 mmHg | |AV meanP.87 mmHg | |AV Vmax: 2.58 m/s | |AV Vmean: 1.86 m/s | |AV VTI: 60.10 cm | |MARLI Vmax: 1.01 cm2 | |MARLI (VTI): 0.85 cm2 | |AVAI Vmax: 0.00 cm2/m2 | |AVAI (VTI): 0.00 cm2/m2 | |LVOT maxP.55 mmHg | |LVOT meanP.81 mmHg | |LVSI Dopp: 25.63 ml/m2 | |LVSV Dopp: 51.26 ml | |LVOT Vmax: 0.62 m/s | |LVOT Vmean: 0.42 m/s | |LVOT VTI: 12.16 cm | |MV A Kevin: 0.12 m/s | |MV DecT: 449.28 ms | |MV E Kevin: 1.76 m/s | |MV E/A Ratio: 14.5 | |MV PHT: 130.29 ms | |MVA By PHT: 1.68 cm2 | |MV maxP.45 mmHg | |MV meanP.50 mmHg | |MV Vmax: 1.76 m/s | |MV Vmean: 0.93 m/s | |MV VTI: 43.74 cm | |MVA (VTI): 1.17 cm2 | |Septal e': 0.06 m/s | |Septal E/e': 27.97 | |Lateral e': 0.08 m/s | |Lateral E/e': 19.98 | |RAP: 20 mmHg | |RVSP: 60.05 mmHg | |TR maxP.05 mmHg | |TR Vmax: 3.16 m/s | | | |De Ionizer Operator: | |Authenticated by: Yasmin Bates | |Report Date/Time: 10-14-2017 13:58:4 | | | |IMPRESSION: | |1. The left ventricle is normal in size with moderately impaired systolic function EF 35-40 %. | |2. There is septal flattening in diastole and systole which is consistent with right ventri cular pressure. | |3. The right ventricle is severely enlarged with moderately impaired systolic function. | |4. The aortic valve is moderately calcified with moderate to severe stenosis. | |5. Mitral Clip is noted, mild mitral stenosis and moderate regurgitation. | |6. Severe tricuspid regurgitation with severe pulmonary hypertension. | |7. There is no pericardial effusion. | |8. Patent mitral clip puncture shunt with bidirectional flow mostly left to right. | + + documented in this encounter Visit Diagnoses Not on filedocumented in this encounter"
--- OUTSIDE RECORDS SUMMARY | ~2019-11-13 | XMS | Clinical Summary ---
Demographics + + + | Address | [address] | | | [place] [address] | + + + | Home Phone | | + + + | Preferred Language | Unknown | + + + | Marital Status | | + + + | Taoist Affiliation | 1069 | + + + | Race | Unknown | + + + | Ethnic Group | Unknown | + + + Author + + + | Author | [facility] | | | and [place] | + + + | Organization | [facility] | | | and [place] | + + + | Address | Unknown | + + + | Phone | Unavailable | + + + Support + + + + + | Name | Relationship | Address | Phone | + + + + + | Daniel Daniel | ECON | [place] | | | | | [address] | | + + + + + | Katherine Daniel | ECON | [address] | | | | | [place] | | | | | [address] | | + + + + + | Katherine Daniel | ECON | [address] | | | | | [place] | | | | | [address] | | + + + + + Care Team Providers + +------+ + | Care Leasing Machine Tender Name | Role | Phone | [...] 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 | | Medtronic Praveen II MILK VENDOR-D ICD | | | | Last Assessment & Plan: | | Normal function. | + + + + + | Diabetes mellitus, type II | 08/10/2011 | + + + + + | Overview: Overview: | | [facility] [id number] Decision | | [facility] [id number] Decision | + + + + + | Dyslipidemia | 08/10/2011 | + + + | Essential hypertension | 08/10/2011 | + + + | Ischemic cardiomyopathy | 08/10/2011 | + + + + + | Overview: Last Assessment & Plan: Severe MR by last echo. Was | | seeing Dr. Serra, wishes to establish care with [place] | | property handler. Will refer to cardiology and try to arrange his | | appointment for when he is in [place] for his generator | | change.Last Assessment & Plan: Severe MR by last echo. Was seeing | | Dr. Serra, wishes to establish care with [place] property handler. | | Will refer to cardiology and try to arrange his appointment for | | when he is in [place] for his generator change. | + + [...] | | | | | graft of cous[place]ta | | | | | | heart [...] 03/20/ | Office | Cardiology | Des Bates, | | | 2019 | Visit | | MD [place] [facility] | | | | | | [place] | | | | | | [address] | | | | | | | [...] | | | | | DES VELA ([id number]) on | | | | | | [...] Cm MD : 1940MRN: | | | [id number] Primary cardiology provider: Des Bates Primary | | | electrophysiology provider: Alireza Urbina Device supervisor wrapping room: | | | Medtronic Device type: Biventricular [...] +--------+ +---------+--------+ | MEDICARE | MEDICA | [id number] | 06/28/19 | [phone] | | Medica | | | RE | | 11-Pre | 5 | | re | | | PART A | | sent | | | | | | AND B | | | | | | + +--------+ +--------+ +---------+--------+ | [employer] [place] | MUTUAL | [id number] | | [phone] | | Indemn | | | OF | | 015-Pr | 0 | | ity | | | [place] | | esent | | | | + +--------+ +--------+ +---------+--------+ | MEDICARE | MEDICA | [id number] | 06/28/19 | [phone] | | Medica | | | RE | | 11-Pre | 5 | | re | | | PART A | | sent | | | | | | AND B | | | | | | + +--------+ +--------+ +---------+--------+ | [employer] [place] | MUTUAL | [id number] | | [phone] | | Indemn | | | AND | | 015-Pr | 0 | | ity | | | [place] | | esent | | | | | | [place] | | | | | | | [...] | | al/Fam | | 1940 | [phone] | [place] [address] | | | sid | | | 5 (Home) | | + +--------+ +--------+ + + | David Daniel | Person | Self | [birth year] | [address] | | | al/Fam | | 1940 | [phone] | [place] [address] | | | sid | | | 5 (Home) | | | | | | | [phone] | | | | | | | 4 (Work) | | + +--------+ +--------+ + + Advance Directives + + + + + | Type | Date Recorded | Patient | Explanation | | | | Plastics Scientist | | + + + + + | Power of | | | | | Partition Assembly Machine Operator | | | | + + + + + | Advance | | | | | Directive | | | | + + + + +
--- OUTSIDE RECORDS SUMMARY | ~2019-11-13 | XMS | Encounter Summary ---
Demographics + + + | Address | [address] | | | [place] [address] | + + + | Home Phone | | + + + | Preferred Language | Unknown | + + + | Marital Status | | + + + | Jainism Affiliation | 1069 | + + + | Race | Unknown | + + + | Ethnic Group | Unknown | + + + Author + + + | Author | [facility] | | | and [place] | + + + | Organization | [facility] | [...] [place] | | | | | [address] | | + + + + + | Katherine Daniel | ECON | [address] | | | | | [place] | | | | | [address] | | + + + + + | Katherine Daniel | ECON | [address] | | | | | [place] | | | | | [address] | | + + + + + Care Team Providers + +------+ + | Care Biofuels Product Development Manager Name | Role | Phone | [...] | 2018 | | [address] | [address] | | | | | [address] | [address] [place], | | | | | [place], [place] | [place] [address] | | | | | [address] | [phone] | | | | | [phone] | | | +--------+ + + + [...] | | | | | [place] | | | | | | [address] | | | | | | | [...] TR Vmax: 3.16 m/s | | | Human Resources Administrator: Authenticated by: Yasmin Bates Report Date/Time: | [...] cmLVIDd: 5.83 cmLVPWd: 1.00 cmLVOT Area: 4.21 [id number] Diam: 2.31 | | cm%FS: 14.30 %EF(Teich): [...] mlLAESV Index (A-L): 67.12 ml/m2LAAs A2C: 29.66 [id number] A-L A2C: 125.88 | | mlLALs A2C: 5.93 cmLAAs A4C: 31.63 [id number] A-L A4C: 126.90 mlLALs A4C: 6.69 | | cmRAAs: 29.47 [id number] A-L: 109.74 mlRAESV MOD: 106.61 mlRALs: 6.72 cmTAPSE: | | 2.05 cmAV maxP.15 mmHgAV meanP.87 mmHgAV Vmax: 2.58 m/Naima Vmean: 1.86 | | m/Naima VTI: 60.10 cmAVA Vmax: 1.01 cm2AVA (VTI): 0.85 [id number] Vmax: 0.00 | | cm2/m2AVAI (VTI): 0.00 [...] 0.93 m/sMV VTI: 43.74 cmMVA (VTI): 1.17 [id number] | | e': 0.06 m/sSeptal E/e': 27.97Lateral e': 0.08 m/sLateral E/e': 19.98RAP: 20 | | mmHgRVSP: 60.05 mmHgTR maxP.05 mmHgTR Vmax: 3.16 m/s | | Human Resources Administrator:Authenticated by: Yasmin More Date/Time: 10-14-2017 13:58:4 | [...] |TR Vmax: 3.16 m/s | | | |Human Resources Administrator: | |Authenticated by: Yasmin Bates | |Report [...]
--- OUTSIDE RECORDS SUMMARY | ~2019-11-13 | XMS | Encounter Summary ---
Demographics + + + | Address | [address] | | | [place] [address] | + + + | Home Phone | | + + + | Preferred Language | Unknown | + + + | Marital Status | | + + + | Tenriism Affiliation | 1069 | + + + | Race | Unknown | + + + | Ethnic Group | Unknown | + + + Author + + + | Author | [facility] | | | and [place] | + + + | Organization | [facility] | | | and [place] | + + + | Address | Unknown | + + + | Phone | Unavailable | + + + Support + + + + + | Name | Relationship | Address | Phone | + + + + + | Daniel Daniel | ECON | [place] | | | | | [address] | | + + + + + | Katherine Daniel | ECON | [address] | | | | | [place] | | | | | [address] | | + + + + + | Katherine Daniel | ECON | [address] | | | | | [place] | | | | | [address] | | + + + + + Care Team Providers + +------+ + | Care Commission Auditor Name | Role | Phone | + +------+ + PCP | Unavailable | + +------+ + Reason for Visit +--------+ + | Reason | Comments | +--------+ + | Other | | +--------+ + Encounter Details +--------+ + + + + | Date | Type | Department | Care Team | Description | +--------+ + + + + | 09/24/ | Telephone | [facility] | Riccardo, | Other | | 2014 | | MED CTR MEDICAL | Rodger Powell MD [address] | | | | [address] | [facility] | | | | | [facility] | [place] [address] | | | | | [place] [address] | [phone] | | | | | [phone] | | | +--------+ + + + [...] | | | | | [place] | | | | | | [address] | | | | | | | | +--------+ + + + + documented as of this encounter Visit Diagnoses Not on filecumented in this encounter"
--- OUTSIDE RECORDS SUMMARY | ~2019-11-13 | XMS | Encounter Summary ---
Demographics + + + | Address | [address] | | | [place] [address] | + + + | Home Phone | | + + + | Preferred Language | Unknown | + + + | Marital Status | | + + + | Temple Affiliation | 1069 | + + + | Race | Unknown | + + + | Ethnic Group | Unknown | + + + Author + + + | Author | [facility] | | | and [place] | + + + | Organization | [facility] | | | and [place] | + + + | Address | Unknown | + + + | Phone | Unavailable | + + + Support + + + + + | Name | Relationship | Address | Phone | + + + + + | Daniel Daniel | ECON | [place] | | | | | [address] | | + + + + + | Katherine Daniel | ECON | [address] | | | | | [place] | | | | | [address] | | + + + + + | Katherine Daniel | ECON | [address] | | | | | [place] | | | | | [address] | | + + + + + Care Team Providers + +------+ + | Care Salon Manager Name | Role | Phone | [...] + + | 09/20/ | Telephone | [facility] | Riccardo, | Other | | 2014 | | MED CTR MEDICAL | Rodger Powell MD [address] | | | | | [address] | [facility] | | | | | [facility] | [place] [address] | | | | | [place] [address] | [phone] | | | | | [phone] | | | +--------+ + + + [...] | | | | | [place] | | | | | | [address] | | | | | | | | +--------+ + + + + documented as of this encounter Visit Diagnoses Not on filecumented in this encounter"
--- OUTSIDE RECORDS SUMMARY | ~2019-11-13 | XMS | Encounter Summary ---
Demographics + + + | Address | [address] | | | [place] [address] | + + + | Home Phone | | + + + | Preferred Language | Unknown | + + + | Marital Status | | + + + | Evangelical Affiliation | 1069 | + + + | Race | Unknown | + + + | Ethnic Group | Unknown | + + + Author + + + | Author | [facility] | | | and [place] | + + + | Organization | [facility] | | | and [place] | + + + | Address | Unknown | + + + | Phone | Unavailable | + + + Support + + + + + | Name | Relationship | Address | Phone | + + + + + | Daniel Daniel | ECON | [place] | | | | | [address] | | + + + + + | Katherine Daniel | ECON | [address] | | | | | [place] | | | | | [address] | | + + + + + | Katherine Daniel | ECON | [address] | | | | | [place] | | | | | [address] | | + + + + + Care Team Providers + +------+ + | Care Global President Name | Role | Phone | + +------+ + PCP | Unavailable | + +------+ + Reason for Visit +--------+ + | Reason | Comments | +--------+ + | Other | | +--------+ + Encounter Details +--------+ + + + + | Date | Type | Department | Care Team | Description | +--------+ + + + + | 09/24/ | Telephone | [facility] | Riccardo, | Other | | 2014 | | MED CTR MEDICAL | Rodger Powell MD [address] | | | | | [address] | [facility] | | | | | [facility] | [place] [address] | | | | | [place] [address] | [phone] | | | | | [phone] | | | +--------+ + + + [...] | | | | | [place] | | | | | | [address] | | | | | | | | +--------+ + + + + documented as of this encounter Visit Diagnoses Not on filecumented in this encounter"
--- OUTSIDE RECORDS SUMMARY | ~2019-11-13 | XMS | Encounter Summary ---
Demographics + + + | Address | [address] | | | [place] [address] | + + + | Home Phone | | + + + | Preferred Language | Unknown | + + + | Marital Status | | + + + | Baptist Affiliation | EPI | + + + | Race | White | + + + | Ethnic Group | Not or | + + + Author + + + | Author | [facility] | + + + | Organization | [facility] | + + + | Address | Unknown | + + + | Phone | Unavailable | + + + Support + + +---------+ + | Name | Relationship | Address | Phone | + + +---------+ + | Katherine Daniel | ECON | Unknown | | + + +---------+ + Care Team Providers + +------+ + | Care Trimmer Helper Name | Role | Phone | + +------+ + PCP | Unavailable | + +------+ + Encounter Details +--------+ + + + + | Date | Type | Department | Care Team | Description | +--------+ + + + + | 03/29/ | Office | [facility] | Note, [...] as of this encounter Progress Notes Interface, Primary Operator In - 04/03/2006 3:10 AM PDTCLINIC DATE: 03/29/2001 OTOLARYNGOLOGY CLINIC SUBJECTIVE: Mr. Daniel returns for a followup visit. He is doing well and has no complaints. PHYSICAL EXAMINATION: GENERAL: He looks well. VITAL SIGNS: His weight is 181 pounds, which is down 1 pound from his previous visit. NECK: His neck is well-healed. There is no adenopathy palpable on his neck. HEENT: Intraorally, no mucosal lesions are seen. I sprayed his nose using phenylethanol-lidocaine and examined him using a flexible scope. Nasal cavity, nasopharynx, oropharynx, hypopharynx, and larynx are all well visualized, and there is no evidence of any tumor seen. IMPRESSION: The patient is doing well. 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 He will return for followup here in 1 month. Edis Hatch M.D. [facility] / [id number] / [id number] / [id number] / [id number] cc: Anand Lackey M.D. [address] [place] [place] [address] Austin Espinosa M.D. [address] [facility] [place] [address] [id number] signed by Interface, Primary Operator In at 04/03/2006 3:10 AM PDTInterf sasha, Primary Operator In - 04/03/2006 3:10 AM PDTCLINIC DATE: 03/29/2001 SUBJECTIVE: The patient is a pleasant 61-year old gentleman with a squamous cell carcinoma of unknown primary. He underwent a modified radical neck dissection on the right side at the end of November 2000. He has done well since that time. Previous interactions have been unable to locate the primary. He has not had any postoperative chemotherapy or radiation therapy. Since his last visit, he has been asymptomatic and doing well. His swelling, breathing, and voice are unchanged. OBJECTIVE: A well-developed male in no acute distress. HEENT: No intraoral lesions are apparent. Examination of the oropharynx, hypopharynx, and larynx using the nasopharyngoscope reveals no evidence of disease. The nasopharynx reveals no purulent disease. ASSESSMENT AND PLAN: A 61-year old male with a squamous cell carcinoma of unknown primary. The patient is clinically doing well. No primary is identified on exam today. There are no nodes palpable in his neck. We will continue with close surveillance and examine him again in approximately 1 months' time. This patient was seen with Dr. Edis Hatch. Simon Jansen M.D. Edis Hatch M.D. J[facility] / [id number] / [id number] / [id number] / [id number] signed by Interface, Primary Operator In at 04/03/2006 3:10 AM PDTdocume nted in this encounter Plan of Treatment Not on filedocumented as of this encounter Visit Diagnoses Not on filedocumented in this encounter"
--- OUTSIDE RECORDS SUMMARY | ~2019-11-13 | XMS | Encounter Summary ---
Demographics + + + | Address | [address] | | | [place] [address] | + + + | Home Phone | | + + + | Preferred Language | Unknown | + + + | Marital Status | | + + + | Hindu Affiliation | 1069 | + + + | Race | Unknown | + + + | Ethnic Group | Unknown | + + + Author + + + | Author | [facility] | | | and [place] | + + + | Organization | [facility] | | | and [place] | + + + | Address | Unknown | + + + | Phone | Unavailable | + + + Support + + + + + | Name | Relationship | Address | Phone | + + + + + | Daniel Daniel | ECON | [place] | | | | | [address] | | + + + + + | Katherine Daniel | ECON | [address] | | | | | [place] | | | | | [address] | | + + + + + | Katherine Daniel | ECON | [address] | | | | | [place] | | | | | [address] | | + + + + + Care Team Providers + +------+ + | Care Women'S Garment Fitter Name | Role | Phone | + +------+ + | Tracie Cm MD | PCP | | + +------+ + Reason for Visit + + + | Reason | Comments | + + + | Medication Refill | Hydralazine | + + + Encounter Details +--------+--------+ + + + | Date | Type | Department | Care Team | Description | +--------+--------+ + + + | 06/02/ | Refill | [facility] | Ben Lopez, | Medication Refill | | 2019 | | CARDIOLOGY VANESSA | [employer] Manager | (Hydralazine) | | | | [address] | | | | | | [place] | | | | | | [address] | | | | | | [phone] | | | +--------+--------+ + + + [...] [place] | | | | | | [address] | | | | | | | | +--------+ + + + + documented as of this encounter Visit Diagnoses Not on filedocumented in this encounter"
--- OUTSIDE RECORDS SUMMARY | ~2019-11-13 | XMS | Encounter Summary ---
Demographics + + + | Address | [address] | | | [place] [address] | + + + | Home Phone | | + + + | Preferred Language | Unknown | + + + | Marital Status | | + + + | Scientologist Affiliation | EPI | + + + [...] Team Providers + +------+ + | Care Liability Claims Manager Name | Role | Phone | + +------+ + PCP | Unavailable | + +------+ + Encounter Details +--------+ + + + + | Date | Type | Department | Care Team | Description | +--------+ + + + + | 12/23/ | Procedure - | | Record, Operation | Operative Report | | 2000 | | | | | | | Transcribed | | | | +--------+ + + [...] | + +--------+ + + + | OPERATION RECORD | | 12/23/2000 | | Results for this | | | | | | procedure are in the | | | | | | results section. | + +--------+ + + + documented in this encounter Results OPERATION RECORD (12/23/2000) + + | Transcriptions | + + | Interface, Baker In - 04/21/2006 3:04 AM PDT | | [facility] [address] | | [place], [place] [address] | | [facility] REC[facility]Med Rec No.: | | [id number] Date: 12/23/2000Name: Krystina Daniel SURGEON: | | Edis Hatch M.D.MACHINIST SET UP(S): Brent Mock, | | Reinaldo.PREOPERATIVE DIAGNOSIS(ES):Metastatic squamous cell carcinoma to the right neck | | nodes, with an unknownprimary.POSTOPERATIVE DIAGNOSIS(ES):Same.PROCEDURE(S) PERFORMED:1. | | Direct laryngoscopy with biopsy.2. Rigid esophagoscopy.3. Right supraomohyoid neck | | dissection.INDICATIONS:The patient is a 61-year-old gentleman who noted a right neck | | mass whileshaving. An FNA of this revealed squamous cell carcinoma. No | | primarysource had been identified on CT scan or exam in the clinic.FINDINGS:1. | | Erythroplakial lesion in the left base of tongue, which was biopsied, and frozen | | section was negative.2. Left base of tongue rend biopsy taken.3. Nasopharyngeal biopsy | | taken.4. Completely normal esophagoscopy.5. A 3 cm right level 2 lymph node was | | identified during the dissection of levels 1, 2 and 3. The submental region was not | | dissected.SPECIMEN(S):1. Left base of tongue biopsy, negative for frozen specimen.2. | | Right base of tongue biopsy.3. Nasopharyngeal biopsy.4. Submandibular neck contents.5. | | History right neck contents.6. Middle neck | | contents.ANESTHESIA:General.COMPLICATIONS:None.PROCEDURE:The patient was brought to the | | operating room and placed on the operatingtable in the supine position. After | | adequate IV sedation was given, thepatient was orally intubated. The panendoscopy was | | then performed. Directlaryngoscopy was performed. The above biopsies were taken. | | The piriformsinus, postglottic region, posteropharyngeal wall and glottis were | | allnormal. Esophagoscopy was then performed up to 35 cm. No lesions wereseen. A | | right neck dissection incision was then marked out and injectedwith 1% Lidocaine with | | 1:100,000 epinephrine. The patient was then preppedand draped in the usual sterile | | fashion.An incision was made in the previously marked area and carried down throughthe | | subcutaneous tissue through the platysma. Superiorly and inferiorlybased | | subplatysmal flaps were then elevated. The right submandibulardissection was | | done first. The anterior belly of the digastric wasidentified and dissected down | | to the tendon. The marginal mandibular nervewas then identified and the fascia | | overlying it was incised, reflecting itupwards. The submandibular contents were | | dissected off of the mandible inthe supraperiosteal plane. The facial vessels were | | ligated as they coursedover the mandible. The neck contents were then dissected | | off of themylohyoid gland. The mylohyoid was reflected medially and the | | lingualnerve was identified. The submandibular ganglion was divided, as was theduct | | to the submandibular gland. The hypoglossal nerve was identified deepin the dissection. | | The dissection was carried out laterally and the facialvessels were again identified | | and ligated. The dissection was carried outthe submandibular gland through the | | tail of the parotid up to thesternocleidomastoid muscle.An incision was made over | | the fascia overlying the sternocleidomastoid andcarried down deeply, until the | | sternocleidomastoid was reflected 1.5 cmposterior to the jugular vein. The 11th | | nerve was identified and dissectedup superiorly to the jugular vein. The dissection was | | then carried down tothe cervical nerve rootlets from the 11th nerve down to the | | omohyoidmuscle. The neck contents were then swept medially off of the jugular veinin a | | plane superficial to the ansa cervicalis and ansa hypoglossi. Thecommon facial vein | | was identified and ligated. The contents were thenremoved and passed off as a | | specimen. They were divided into the abovespecimens. A Surgidine drain was placed. | | The wound was closed in twolayers and dressed with bacitracin ointment. The | | patient was then awakenedand brought to the Post Anesthesia Care Unit in satisfactory | | condition. 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 Because of this, however, it was felt that the patient woulddo well with | | monitoring on telemetry overnight. The patient was sent tothe Telemetry Unit. There | | were no complications.Pursuant to federal Medicare regulations, Dr. Edis Hatch | | was presentfor the critical portions of the procedure.Brent Mock M.D. | | Edis Hatch M.D.DK/[id number]:12/23/2000T:12/23/[id number] | |table in the supine position. After adequate IV sedation was given, the | |patient was orally intubated. The panendoscopy was then performed. Direct | |laryngoscopy was performed. The above biopsies were taken. The piriform | |sinus, postglottic region, posteropharyngeal wall and glottis were all | |normal. Esophagoscopy was then performed up to 35 cm. No lesions were | |seen. A right neck dissection incision was then marked out and injected | |with 1% Lidocaine with 1:100,000 epinephrine. The patient was then prepped | |and draped in the usual sterile fashion. | | | |An incision was made in the previously marked area and carried down through | |the subcutaneous tissue through the platysma. Superiorly and inferiorly | |based subplatysmal flaps were then elevated. The right submandibular | |dissection was done first. The anterior belly of the digastric was | |identified and dissected down to the tendon. The marginal mandibular nerve | |was then identified and the fascia overlying it was incised, reflecting it | |upwards. The submandibular contents were dissected off of the mandible in | |the supraperiosteal plane. The facial vessels were ligated as they coursed | |over the mandible. The neck contents were then dissected off of the | |mylohyoid gland. The mylohyoid was reflected medially and the lingual | |nerve was identified. The submandibular ganglion was divided, as was the | |duct to the submandibular gland. The hypoglossal nerve was identified deep | |in the dissection. The dissection was carried out laterally and the facial | |vessels were again identified and ligated. The dissection was carried out | |the submandibular gland through the tail of the parotid up to the | |sternocleidomastoid muscle. | | | |An incision was made over the fascia overlying the sternocleidomastoid and | |carried down deeply, until the sternocleidomastoid was reflected 1.5 cm | |posterior to the jugular vein. The 11th nerve was identified and dissected | |up superiorly to the jugular vein. The dissection was then carried down to | |the cervical nerve rootlets from the 11th nerve down to the omohyoid | |muscle. The neck contents were then swept medially off of the jugular vein | |in a plane superficial to the ansa cervicalis and ansa hypoglossi. The | |common facial vein was identified and ligated. The contents were then | |removed and passed off as a specimen. They were divided into the above | |specimens. A Surgidine drain was placed. The wound was closed in two | |layers and dressed with bacitracin ointment. The patient was then awakened | |and brought to the Post Anesthesia Care Unit in satisfactory condition. Of | |note, anesthesia reported that during the case the patient had some ST | |segment elevations which I felt was most likely because of his bundle | |branch block. Because of this, however, it was felt that the patient would | |do well with monitoring on telemetry overnight. The patient was sent to | |the Telemetry Unit. There were no complications. | | | |Pursuant to federal Medicare regulations, Dr. Edis Hatch was present | |for the critical portions of the procedure. | | | | | |Brent Mock M.D. Edis Hatch M.D. | | | |DK/X65 | | | | | | | | | |[id number] | + + documented in this encounter Visit Diagnoses Not on filedocumented in this encounter"
--- OUTSIDE RECORDS SUMMARY | ~2019-11-13 | XMS | Encounter Summary ---
Demographics + + + | Address | [address] | | | [place] [address] | + + + | Home Phone [...] + | Author | [facility] | | | and [place] | + + + | Organization | [facility] | | | and [place] | + + + | Address | Unknown | + + + | Phone | Unavailable | + + + Support + + + + + | Name | Relationship | Address | Phone | + + + + + | Daniel Daniel | ECON | [place] | | | | | [address] | | + + + + + | Katherine Daniel | ECON | [address] | | | | | [place] | | | | | [address] | | + + + + + | Katherine Daniel | ECON | [address] | | | | | [place] | | | | | [address] | | + + + + + Care Team Providers + +------+ + | Care Agricultural Appraiser Name | Role | Phone | + [...] | | | | [address] | [place] [address] | | | | | [place] [address] | | | | | | [phone] | | | +--------+ + + + [...] | | | | | [place], [place] | | | | | | [address] | | | | | | | | +--------+ + + + + documented as of this encounter Procedures + +--------+ + + + | Procedure Name | Priori | Date/Time | Associated Diagnosis | Comments | | | ty | | | | + +--------+ + + + | XR HIP RIGHT 2-3 | Routin | 03/20/2018 | | Results for this | | VIEWS | e | 4:30 PM | | procedure are in the | | | | PDT | | results section. | + +--------+ + + + documented in this encounter Results XR Hip Right 2-3 Views (03/20/2018 4:30 PM PDT) + + | Specimen | [...]
--- OUTSIDE RECORDS SUMMARY | ~2019-11-13 | XMS | Encounter Summary ---
Demographics + + + | Address | [address] | | | [place] [address] | + + + | Home Phone | | + + + | Preferred Language | Unknown | + + + | Marital Status | | + + + | Judaism Affiliation | 1069 | + + + | Race | Unknown | + + + | Ethnic Group | Unknown | + + + Author + + + | Author | [facility] | | | and [place] | + + + | Organization | [facility] | | | and [place] | + + + | Address | Unknown | + + + | Phone | Unavailable | + + + Support + + + + + | Name | Relationship | Address | Phone | + + + + + | Daniel Daniel | ECON | [place] | | | | | [address] | | + + + + + | Katherine Daniel | ECON | [address] | | | | | [place] | | | | | [address] | | + + + + + | Katherine Daniel | ECON | [address] | | | | | [place] | | | | | [address] | | + + + + + Care Team Providers + +------+ + | Care Artificial Stone Applicator Name | Role | Phone | + +------+ + | Tracie Cm MD | PCP | | + +------+ + Reason for Visit + + + | Reason | Comments | + + + | Medication Refill | Lisinopril | + + + Encounter Details +--------+--------+ + + + | Date | Type | Department | Care Team | Description | +--------+--------+ + + + | 06/26/ | Refill | [facility] | Yasmin Bates, | Medication Refill | | 2019 | | CARDIOLOGY CHARAN | MD Aamir YOON | (Lisinopril) | | | | [address] [address] | [place], [place] | | | | | [address] [facility] | [address] | | | | | [place] | | | | | | [address] | | | | | | [phone] | | | +--------+--------+ + + + [...] [place] | | | | | | [address] | | | | | | | | +--------+ + + + + documented as of this encounter Visit Diagnoses Not on filedocumented in this encounter"
--- OUTSIDE RECORDS SUMMARY | ~2019-11-13 | XMS | Encounter Summary ---
Demographics + + + | Address | [address] | | | [place] [address] | + + + | Home Phone | | + + + | Preferred Language | Unknown | + + + | Marital Status | | + + + | Congregational Affiliation | EPI | + + + | Race | White | + + + | Ethnic Group | Not or | + + + Author + + + | Author | [facility] | + + + | Organization | [facility] | + + + | Address | Unknown | + + + | Phone | Unavailable | + + + Support + + +---------+ + | Name | Relationship | Address | Phone | + + +---------+ + | Katherine Daniel | ECON | Unknown | | + + +---------+ + Care Team Providers + +------+ + | Care Interface Developer Name | Role | Phone | + [...] as of this encounter Progress Notes Interface, Medical Billing Representative In - 03/17/2006 3:11 AM PDTCLINIC DATE: [...] visit in 6 weeks. Edis Hatch M.D. Industrial Engineering Manager, Otolaryngology, Head and Neck Surgery [facility] / [id number] / [id number] / [id number] / [id number] signed by Interface, Medical Billing Representative In at 03/17/2006 3:11 AM PDTdoc umented in this encounter Plan of Treatment Not on filedocumented as of this encounter Visit Diagnoses Not on filedocumented in this encounter"
--- OUTSIDE RECORDS SUMMARY | ~2019-11-13 | XMS | Encounter Summary ---
Demographics + + + | Address | [address] | | | [place] [address] | + + + | Home Phone | | + + + | Preferred Language | Unknown | + + + | Marital Status | | + + + | Jew Affiliation | 1069 | + + + | Race | Unknown | + + + | Ethnic Group | Unknown | + + + Author + + + | Author | [facility] | | | and [place] | + + + | Organization | [facility] | | | and [place] | + + + | Address | Unknown | + + + | Phone | Unavailable | + + + Support + + + + + | Name | Relationship | Address | Phone | + + + + + | Daniel Daniel | ECON | [place] | | | | | [address] | | + + + + + | Katherine Daniel | ECON | [address] | | | | | [place] | | | | | [address] | | + + + + + | Katherine Daniel | ECON | [address] | | | | | [place] | | | | | [address] | | + + + + + Care Team Providers + +------+ + | Care Cp Bleacher Operator Name | Role | Phone | [...] + + | 03/22/ | Telephone | [facility] | Alireza Urbina, | Device Check | | 2019 | | CARDIOLOGY VANESSA | [address] | | | | | [address] | [place], [place] | | | | | [place], [place] | [address] | | | | | [address] | | | | | | [phone] | | | +--------+ + + + [...] [place] | | | | | | [id number] | | | | | | | | +--------+ + + + + documented as of this encounter Visit Diagnoses Not on filedocumented in this encounter"
--- OUTSIDE RECORDS SUMMARY | ~2019-11-13 | XMS | Encounter Summary ---
Demographics + + + | Address | [address] | | | [place] [address] | + + + | Home Phone | | + + + | Preferred Language | Unknown | + + + | Marital Status | | + + + | Rastafarian Affiliation | EPI | + + + | Race | White | + + + | Ethnic Group | Not or | + + + Author + + + | Author | [facility] | + + + | Organization | [facility] | + + + | Address | Unknown | + + + | Phone | Unavailable | + + + Support + + +---------+ + | Name | Relationship | Address | Phone | + + +---------+ + | Katherine aDniel | ECON | Unknown | | + + +---------+ + Care Team Providers + +------+ + | Care Marine Engineer Cpvec Name | Role | Phone | + +------+ + PCP | Unavailable | + +------+ + Encounter Details +--------+ + + + + | Date | Type | Department | Care Team | Description | +--------+ + + + + | 08/24/ | Office | [facility] | Note, [...] documented as of this encounter Progress Notes Thomas, Film And Video Graphics Designer In - 03/10/2006 1:11 AM PDTCLINIC DATE: 08/24/2001 OTOLARYNGOLOGY CLINIC HISTORY: Mr. Daniel returns for a followup visit. He has no complaints. PHYSICAL EXAMINATION: GENERAL: He looks well. VITAL SIGNS: His weight is 189 pounds. NECK: Palpated. His incision is well healed. There is no adenopathy palpated on the right side of the neck. On the left side of the neck, there is a very small pea-sized lymph node which feels relatively benign in the posterior triangle at about the mid portion of the neck. This to my recollection has been there in previous examinations and has not changed. I sprayed his nose using phenylephrine and lidocaine. I examined using the flexible scope. The nasal cavity, nasopharynx, oropharynx, hypopharynx, and larynx are all well visualized, and there is no evidence of disease here. 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 PLAN: He will return for a followup visit in 6 weeks. Edis Hatch M.D. JOI / JODEE [id number] / [id number] / [id number] / [id number] signed by Thomas, Film And Video Graphics Designer In at 03/10/2006 1:11 AM PDTdoc umented in this encounter Plan of Treatment Not on filedocumented as of this encounter Visit Diagnoses Not on filedocumented in this encounter"
--- OUTSIDE RECORDS SUMMARY | ~2019-11-13 | XMS | Encounter Summary ---
Demographics + + + | Address | [address] | | | [place] [address] | + + + | Home Phone | | + + + | Preferred Language | Unknown | + + + | Marital Status | | + + + | Sabianist Affiliation | 1069 | + + + | Race | Unknown | + + + | Ethnic Group | Unknown | + + + Author + + + | Author | [facility] | | | and [place] | + + + | Organization | [facility] | | | and [place] | + + + | Address | Unknown | + + + | Phone | Unavailable | + + + Support + + + + + | Name | Relationship | Address | Phone | + + + + + | Daniel Daniel | ECON | [place] | | | | | [address] | | + + + + + | Katherine Daniel | ECON | [address] | | | | | [place] | | | | | [address] | | + + + + + | Katherine Daniel | ECON | [address] | | | | | [place] | | | | | [address] | | + + + + + Care Team Providers + +------+ + | Care Correspondence School Instructor Name | Role | Phone | + +------+ + PCP | Unavailable | + +------+ + Encounter Details +--------+ + + + + | Date | Type | Department | Care Team | Description | +--------+ + + + + | 08/22/ | Hospital | [facility] | | | | 2010 - | Encounter | MED CTR CANCER | | | | | | CENTER [address] | | | | 08/25/ | | [place] | | | | 2010 | | [address] | | | | | | [phone] | | | +--------+ + + + [...] [place] | | | | | | [address] | | | | | | | | +--------+ + + + + documented as of this encounter Visit Diagnoses Not on filedocumented in this encounter"
--- OUTSIDE RECORDS SUMMARY | ~2019-11-13 | XMS | Encounter Summary ---
Demographics + + + | Address | [address] | | | [place] [address] | + + + | Home Phone | | + + + | Preferred Language | Unknown | + + + | Marital Status | | + + + | Gnosticist Affiliation | 1069 | + + + | Race | Unknown | + + + | Ethnic Group | Unknown | + + + Author + + + | Author | [facility] | | | and [place] | + + + | Organization | [facility] | | | and [place] | + + + | Address | Unknown | + + + | Phone | Unavailable | + + + Support + + + + + | Name | Relationship | Address | Phone | + + + + + | Daniel Daniel | ECON | [place] | | | | | [address] | | + + + + + | Katherine Daniel | ECON | [address] | | | | | [place] | | | | | [address] | | + + + + + | Katherine Daniel | ECON | [address] | | | | | [place] | | | | | [address] | | + + + + + Care Team Providers + +------+ + | Care Senior Account Executive Name | Role | Phone | + +------+ + | Tracie Cm MD | PCP | | + +------+ + Encounter Details +--------+ + + + + | Date | Type | Department | Care Team | Description | +--------+ + + + + | 04/18/ | Abstract | [facility] | Alicia Ross, | | | 2017 | | MED CTR MEDICAL | [facility] | | | | | [facility]OGY CLINIC [address] | | | | | | [address] | | | | | | [place] [address] | | | | | | [phone] | | | +--------+ + + + [...] Procedure | Cardiology | | | | 2020 | visit | | | | +--------+ + + + + | 03/20/ | Office | Cardiology | Yasmin Bates, | | | 2019 | Visit | | MD [address]amir [address]OON | | | | | | [place] | | | | | | [address] | | | | | | | | +--------+ + + + + documented as of this encounter Visit Diagnoses Not on filedocumented in this encounter"
--- OUTSIDE RECORDS SUMMARY | ~2019-11-13 | XMS | Encounter Summary ---
Demographics + + + | Address | [address] | | | [place] [address] | + + + | Home Phone | | + + + | Preferred Language | Unknown | + + + | Marital Status | | + + + | Anabaptist Affiliation | 1069 | + + + | Race | Unknown | + + + | Ethnic Group | Unknown | + + + Author + + + | Author | [facility] | | | and [place] | + + + | Organization | [facility] | | | and [place] | + + + | Address | Unknown | + + + | Phone | Unavailable | + + + Support + + + + + | Name | Relationship | Address | Phone | + + + + + | Daniel Daniel | ECON | [place] | | | | | [address] | | + + + + + | Katherine Daniel | ECON | [address] | | | | | [place] | | | | | [address] | | + + + + + | Katherine Daniel | ECON | [address] | | | | | [place] | | | | | [address] | | + + + + + Care Team Providers + +------+ + | Care Guest Services Associate Name | Role | Phone | + +------+ + | Tracie Cm MD | PCP | | + +------+ + Encounter Details +--------+ + + + + | Date | Type | Department | Care Team | Description | +--------+ + + + + | 04/25/ | Orders Only | [facility] | [place] | Macrocytic anemia | | 2018 | | MED [facility] | MD Rodger [address] | (Primary Dx) | | | | ONCOLOGY CLINIC [address] | | | | | [address] | [place] [address] | | | | | [place] [address] | [phone] | | | | | [phone] | | | +--------+ + + + [...] | 03/20/ | Office | Cardiology | Jerry Batesravinder, | | | 2019 | Visit | | MD [address] | | | | | | [place], [place] | | | | | | [address] | | | | | | | | +--------+ + + + + + +------+--------+ + + | Name | Type | Priori | Associated Diagnoses | Order Schedule | | | | ty | | | + +------+--------+ + + | Slide Review, | Lab | Routin | Macrocytic anemia | 1 Occurrences | | Peripheral Smear | | e | | starting 04/25/2018 | | | | | | until 04/26/2019 | + +------+--------+ + + documented as of this encounter Visit Diagnoses + + | Diagnosis | + + | Macrocytic anemia - Primary Unspecified deficiency anemia | + + documented in this encounter"
--- OUTSIDE RECORDS SUMMARY | ~2019-11-13 | XMS | Encounter Summary ---
Demographics + + + | Address | [address] | | | [place] [address] | + + + | Home Phone | | + + + | Preferred Language | Unknown | + + + | Marital Status | | + + + | Pentecostal Affiliation | EPI | + + + | Race | White | + + + | Ethnic Group | Not or | + + + Author + + + | Author | [facility] | + + + | Organization | [facility] | + + + | Address | Unknown | + + + | Phone | Unavailable | + + + Support + + +---------+ + | Name | Relationship | Address | Phone | + + +---------+ + | Katherine Daniel | ECON | Unknown | | + + +---------+ + Care Team Providers + +------+ + | Care Sas Architect Name | Role | Phone | + +------+ + | Sander Murphy MD | PCP | | + +------+ + Encounter Details +--------+ + + + + | Date | Type | Department | Care Team | Description | +--------+ + + + + | 02/12/ | Hospital | Registration [facility] | | | | 2014 | Encounter | [address] | | | | | | [place], | | | | | | [place] [address] | | | +--------+ + + + [...]
--- OUTSIDE RECORDS SUMMARY | ~2019-11-13 | XMS | Encounter Summary ---
Demographics + + + | Address | [address] | | | [place] [address] | + + + | Home Phone [...] + + + | Author | [facility] | + + + | Organization | [facility] | + + + | Address | Unknown | + + + | Phone | Unavailable | + + + Support + + +---------+ + | Name | Relationship | Address | Phone | + + +---------+ + | Katherine Daniel | ECON | Unknown | | + + +---------+ + Care Team Providers + +------+ + | Care Rougher Operator Name | Role | Phone | [...] as of this encounter Progress Notes Interface, Checking Clerk In - 03/22/2006 2:23 AM PDTCLINIC DATE: [...] examination in 1 month. Edis Hatch M.D. [facility] / [id number] / [id number] / [id number] / [id number] signed by Interface, Checking Clerk In at 03/22/2006 2:23 AM PDTdoc umented in this encounter Plan of Treatment Not on filedocumented as of this encounter Visit Diagnoses Not on filedocumented in this encounter"
--- OUTSIDE RECORDS SUMMARY | ~2019-11-13 | XMS | Encounter Summary ---
Demographics + + + | Address | [address] | | | [place] [address] | + + + | Home Phone | | + + + | Preferred Language | Unknown | + + + | Marital Status | | + + + | Uatsdin Affiliation | 1069 | + + + | Race | Unknown | + + + | Ethnic Group | Unknown | + + + Author + + + | Author | [facility] | | | and [place] | + + + | Organization | [facility] | | | and [place] | + + + | Address | Unknown | + + + | Phone | Unavailable | + + + Support + + + + + | Name | Relationship | Address | Phone | + + + + + | Daniel Daniel | ECON | [place] | | | | | [address] | | + + + + + | Katherine Daniel | ECON | [address] | | | | | [place] | | | | | [address] | | + + + + + | Katherine Daniel | ECON | [address] | | | | | [place] | | | | | [address] | | + + + + + Care Team Providers + +------+ + | Care Bank Guard Name | Role | Phone | + [...] + + | 06/26/ | Refill | [facility] | Yasmin Bates, | Medication Refill | | 2019 | | CARDIOLOGY [place] | MD [address] | (Lisinopril) | | | | [address] | [place], [place] | | | | | [place] [facility] | [address] | | | | | [place] | | | | | | [address] | | | | | | [phone] | | | +--------+--------+ + + + [...] [place] | | | | | | [address] | | | | | | | | +--------+ + + + + documented as of this encounter Visit Diagnoses Not on filedocumented in this encounter"
--- OUTSIDE RECORDS SUMMARY | ~2019-11-13 | XMS | Encounter Summary ---
Demographics + + + | Address | [address] | | | [place] [address] | + + + | Home Phone | | + + + | Preferred Language | Unknown | + + + | Marital Status | | + + + | Jehovah'S Witness Affiliation | 1069 | + + + | Race | Unknown | + + + | Ethnic Group | Unknown | + + + Author + + + | Author | [facility] | | | and [place] | + + + | Organization | [facility] | | | and [place] | + + + | Address | Unknown | + + + | Phone | Unavailable | + + + Support + + + + + | Name | Relationship | Address | Phone | + + + + + | Daniel Daniel | ECON | [place] | | | | | [address] | | + + + + + | Katherine Daniel | ECON | [address] | | | | | [place] | | | | | [address] | | + + + + + | Katherine Daniel | ECON | [address] | | | | | [place] | | | | | [address] | | + + + + + Care Team Providers + +------+ + | Care Pensionholder Information Clerk Name | Role | Phone | + +------+ + PCP | Unavailable | + +------+ + Encounter Details +--------+ + + + + | Date | Type | Department | Care Team | Description | +--------+ + + + + | 11/13/ | Hospital | [facility] | Riccardo, | | | 2009 - | Encounter | MED CTR CANCER | Rodger Powell MD [address] | | | | | [place] [address] | [address] | | | 11/25/ | | [place], [place] | [place] [address] | | | 2009 | | [address] | [phone] | | | | | [phone] | | | +--------+ + + + [...] | | | | | [place] | | | | | | [address] | | | | | | | | +--------+ + + + + documented as of this encounter Visit Diagnoses Not on filedocumented in this encounter"
--- OUTSIDE RECORDS SUMMARY | ~2019-11-13 | XMS | Encounter Summary ---
Demographics + + + | Address | [address] | | | [place] [address] | + + + | Home Phone | | + + + | Preferred Language | Unknown | + + + | Marital Status | | + + + | Amish Affiliation | 1069 | + + + | Race | Unknown | + + + | Ethnic Group | Unknown | + + + Author + + + | Author | [facility] | | | and [place] | + + + | Organization | [facility] | | | and [place] | + + + | Address | Unknown | + + + | Phone | Unavailable | + + + Support + + + + + | Name | Relationship | Address | Phone | + + + + + | Daniel Daniel | ECON | [place] | | | | | [address] | | + + + + + | Katherine Daniel | ECON | [address] | | | | | [place] | | | | | [address] | | + + + + + | Katherine Daniel | ECON | [address] | | | | | [place] | | | | | [address] | | + + + + + Care Team Providers + +------+ + | Care Travel Ot Name | Role | Phone | + +------+ + PCP | Unavailable | + +------+ + Encounter Details +--------+ + + + + | Date | Type | Department | Care Team | Description | +--------+ + + + + | 03/31/ | Hospital | [facility] | Cail [place], | | | 2010 - | Encounter | MED CTR CANCER | [place] [address] | | | | | [place] [address] | [place] | | | 04/27/ | | [place] | [address] | | | 2010 | | [address] | [phone] | | | | | [phone] | | | +--------+ + + + [...] | | | | | [place] | | | | | | [address] | | | | | | | | +--------+ + + + + documented as of this encounter Visit Diagnoses Not on filedocumented in this encounter"
--- OUTSIDE RECORDS SUMMARY | ~2019-11-13 | XMS | Encounter Summary ---
Demographics + + + | Address | [address] | | | [place] [address] | + + + | Home Phone | | + + + | Preferred Language | Unknown | + + + | Marital Status | | + + + | Confucianist Affiliation | EPI | + + + | Race | White | + + + | Ethnic Group | Not or | + + + Author + + + | Author | [facility] | + + + | Organization | [facility] | + + + | Address | Unknown | + + + | Phone | Unavailable | + + + Support + + +---------+ + | Name | Relationship | Address | Phone | + + +---------+ + | Katherine Daniel | ECON | Unknown | | + + +---------+ + Care Team Providers + +------+ + | Care Scaler Name | Role | Phone | + [...] as of this encounter Progress Notes Thomas, Sausage Canner In - 03/10/2006 1:11 AM PDTCLINIC DATE: [...] weeks. Edis Hatch M.D. JOI / JODEE [id number] / [id number] / [id number] / [id number] signed by Thomas, Sausage Canner In at 03/10/2006 1:11 AM PDTdoc umented in this encounter Plan of Treatment Not on filedocumented as of this encounter Visit Diagnoses Not on filedocumented in this encounter"
--- OUTSIDE RECORDS SUMMARY | ~2019-11-13 | XMS | Encounter Summary ---
Demographics + + + | Address | [address] | | | [place] [address] | + + + | Home Phone | | + + + | Preferred Language | Unknown | + + + | Marital Status | | + + + | Mosque Affiliation | 1069 | + + + | Race | Unknown | + + + | Ethnic Group | Unknown | + + + Author + + + | Author | [facility] | | | and [place] | + + + | Organization | [facility] | | | and [place] | + + + | Address | Unknown | + + + | Phone | Unavailable | + + + Support + + + + + | Name | Relationship | Address | Phone | + + + + + | Daniel Daniel | ECON | [place] | | | | | [address] | | + + + + + | Katherine Daniel | ECON | [address] | | | | | [place] | | | | | [address] | | + + + + + | Katherine Daniel | ECON | [address] | | | | | [place] | | | | | [address] | | + + + + + Care Team Providers + +------+ + | Care Director Of Slot Operations Name | Role | Phone | + +------+ + PCP | Unavailable | + +------+ + Encounter Details +--------+ + + + + | Date | Type | Department | Care Team | Description | +--------+ + + + + | 09/01/ | Hospital | [facility] | Cali [place], | | | 2011 - | Encounter | MED CTR CANCER | [place] [address] | | | | | [place] [address] | [place] | | | 09/25/ | | [place] | [address] | | | 2011 | | [address] | [phone] | | | | | [phone] | | | +--------+ + + + [...] | | | | | [place] | | | | | | [address] | | | | | | | | +--------+ + + + + documented as of this encounter Visit Diagnoses Not on filedocumented in this encounter"
--- OUTSIDE RECORDS SUMMARY | ~2019-11-13 | XMS | Encounter Summary ---
Demographics + + + | Address | [address] | | | [place] [address] | + + + | Home Phone | | + + + | Preferred Language | Unknown | + + + | Marital Status | | + + + | Jehovah'S Witness Affiliation | 1069 | + + + | Race | Unknown | + + + | Ethnic Group | Unknown | + + + Author + + + | Author | [facility] | | | and [place] | + + + | Organization | [facility] | | | and [place] | + + + | Address | Unknown | + + + | Phone | Unavailable | + + + Support + + + + + | Name | Relationship | Address | Phone | + + + + + | Daniel Daniel | ECON | [place] | | | | | [address] | | + + + + + | Katherine Daniel | ECON | [address] | | | | | [place] | | | | | [address] | | + + + + + | Katherine Daniel | ECON | [address] | | | | | [place] | | | | | [address] | | + + + + + Care Team Providers + +------+ + | Care Nutritional Yeast Supervisor Name | Role | Phone | + +------+ + PCP | Unavailable | + +------+ + Encounter Details +--------+ + + + + | Date | Type | Department | Care Team | Description | +--------+ + + + + | 02/23/ | Hospital | [facility] | Cali Alatorre, | | | 2010 - | Encounter | MED CTR CANCER | [place] [address] | | | | | [place] [address] | [place] | | | 02/25/ | | [place] | [address] | | | 2010 | | [address] | [phone] | | | | | [phone] | | | +--------+ + + + [...] 70 year old man from [facility] on with recurrent squamous cell carcinoma of [...] origin. 3. Initial management was at the [facility] in [place] (also known as the [facility] in [place], [place]). Treatments included intravenous high-dose vitamin C. 4. On June 06, 2002, he developed recurrent palpable lymphadenopathy in the left side of the neck that was biopsied and confirmed recurrence of squamous cell carcinoma. 5. Between 17 08 and 2003, he received intravenous chemotherapy at the [facility] in [place], [place], including insulin potentiation therapy. 6. He traveled to the [facility] where he received additional insulin potentiation therapy and intralesional injection of chemotherapy between 2003 and 2004. 7. He then cross ed over to naturopathic treatment following the Oliver regimen. 8. In December 2007, he develo ped progressive submental lymphadenopathy that was confirmed to be malignant by CT PET scan February 23, 2009. 9. On March 21, 2009, he began therapy the [facility] with sodium phenylbutyrat e, Rapamune, and oral Xeloda chemotherapy. He continued on the treatment plan with vari ous doses and schedules with stable submental lymphadenopathy until September 25, 2009. 10. He cros sed over to Vectibix chemotherapy September 25, 2009 through January 29, 2010. Repeat CT scan on February 07, 2010 at [facility] in [place], [place] demonstrated progress ion of disease with [...] a consultation with Dr. Lennon at the [facility] in [place], [place], who recommended palliative radiation therapy. He [...] to see Dr. Silas German at the [facility] in [place], [place], who noted significant decrease in the size of the submental mass. He continued on a lternative medical regimens until January 01, 2011 when he returned to the [facility] in [place], [place] and was evaluated by Dr. Bryant [...] Murphy <Electronically Signed by Rodger Gu MD> 02/25/11 1304 Cali Alatorre MD [...] Cali Alatorre MD Radiation Oncology JOB #: [id number] EXT JOB #:[id number] <Electronicall y Signed by Cali Alatorre MD> 02/27/11 1705 Rodger Gu MD - 01/26/2011 1:54 AM PDTPROGRESS NOTE: 02/16/2011 IDENTIFYING STATEMENT: Papo Daniel (Fritz) is a 70 year old man from [facility] on with recurrent squamous cell carcinoma of [...] origin. 3. Initial management was at the [facility] in [place] (also known as the [facility] in [place], [place]). Treatments included intravenous high-dose vitamin C. 4. On June 06, 2002, he developed recurrent palpable lymphadenopathy in the left side of the neck that was biopsied and confirmed recurrence of squamous cell carcinoma. 5. Between 17 08 and 2003, he received intravenous chemotherapy at the [facility] in [place], [place], including insulin potentiation therapy. 6. He traveled to the [facility] where he received additional insulin potentiation therapy and intralesional injection of chemotherapy between 2003 and 2004. 7. He then cross ed over to naturopathic treatment following the Oliver regimen. 8. In December 2007, he develo ped progressive submental lymphadenopathy that was confirmed to be malignant by CT PET scan February 23, 2009. 9. On March 21, 2009, he began therapy the [facility] with sodium phenylbutyrat e, Rapamune, and oral Xeloda chemotherapy. He continued on the treatment plan with vari ous doses and schedules with stable submental lymphadenopathy until September 25, 2009. 10. He cros sed over to Vectibix chemotherapy September 25, 2009 through January 29, 2010. Repeat CT scan on February 07, 2010 at [facility] in [place], [place] demonstrated progress ion of disease with [...] a consultation with Dr. Lennon at the [facility] in [place], [place], who recommended palliative radiation therapy. He [...] to see Dr. Silas German at the [facility] in [place], [place], who noted significant decrease in the size of the submental mass. He continued on a lternative medical regimens until January 01, 2011 when he returned to the [facility] in [place], [place] and was evaluated by Dr. Bryant [...] Cali Alatorre MD Radiation Oncology JOB #: [id number] EXT JOB #:[id number] <Electronicall y Signed by Cail Alatorre MD> 02/19/112018 Rodger Gu MD - 01/26/2011 1:54 AM PDTPROGRESS NOTE 02/09/2011 IDENTIFYING STATEMENT: Papo Daniel (Fritz) is a 70 year old man from [facility] on with recurrent squamous cell carcinoma of [...] origin. 3. Initial management was at the [facility] in [place] (also known as the [facility] in [place], [place]). Treatments included intravenous high-dose vitamin C. 4. On June 06, 2002, he developed recurrent palpable lymphadenopathy in the left side of the neck that was biopsied and confirmed recurrence of squamous cell carcinoma. 5. Bet 2001 and 2003, he received intravenous chemotherapy at the Health system in [place], [place], including insulin potentiation therapy. 6. He [...] March 21, 2009, he began therapy the [facility] with sodium phenylbutyrat e, Rapamune, and oral Xeloda chemotherapy. He continued on the treatment plan with vari ous doses and schedules with stable submental lymphadenopathy until September 25, 2009. 10. He crossed over to Vectibix chemotherapy September 25, 2009 through January 29, 2010. Repeat CT sca n on February 07, 2010 at [facility] in [place], [place] demonstrated progression of disease with increase [...] had a consultation with Dr. Lennon at [facility] in [place], [place], who recommended p alliative radiation therapy. [...] to see Dr. Silas German at the [facility] in [place], [place], who noted significant decrease in the size of the submental mass. He con tinued on alternative medical regimens until January 01, 2011 when he returned to the [facility] in [place], [place] and was evaluated by Dr. Eddi [...] carcinoma o f [facility]. The patient has received a [...] Cali Alatorre MD Radiation Oncology JOB #: [id number] EXT JOB #:[id number] <Electronicall y Signed by Cali Alatorre MD> 02/13/11 1637 Rodger Gu MD - 01/26/2011 1:54 AM PDTPROGRESS NOTE: 02/02/2011 IDENTIFYING STATEMENT: Papo Daniel (Fritz) is a 70 year old man from [facility] on with recurrent squamous cell carcinoma of [...] origin. 3. Initial management was at the [facility] in [place] (also known as the [facility] in [place], [place]). Treatments included intravenous high-dose vitamin C. 4. On June 06, 2002, he developed recurrent palpable lymphadenopathy in the left side of the neck that was biopsied and confirmed recurrence of squamous cell carcinoma. 5. Between 17 08 and 2003, he received intravenous chemotherapy at the [facility] in [place], [place], including insulin potentiation therapy. 6. He traveled to the [facility] where he received additional insulin potentiation therapy and intralesional injection of chemotherapy between 2003 and 2004. 7. He then cross ed over to naturopathic treatment following the Oliver regimen. 8. In December 2007, he develo ped progressive submental lymphadenopathy that was confirmed to be malignant by CT PET scan February 23, 2009. 9. On March 21, 2009, he began therapy the [facility] with sodium phenylbutyrat e, Rapamune, and oral Xeloda chemotherapy. He continued on the treatment plan with vari ous doses and schedules with stable submental lymphadenopathy until September 25, 2009. 10. He cros sed over to Vectibix chemotherapy September 25, 2009 through January 29, 2010. Repeat CT scan on February 07, 2010 at [facility] in [place], [place] demonstrated progres susannah of disease with [...] a consultation with Dr. Lennon at the [facility] in [place], [place], who recommended palliative radiation therapy. He [...] to see Dr. Silas German at the [facility] in [place], [place], who noted significant decrease in the size of the submental mass. He continued on a lternative medical regimens until January 01, 2011 when he returned to the [facility] in [place], [place] and was evaluated by Dr. Bryant [...] he is currently receiving acupuncture, and his concrete sculptor was wondering if he coul d start him on additional supplementation. I recommended to the patien t if he is taking nothing curre ntly that he take [place]-3 fatty acids, with a total dose of at least 1000 mg of ETA DHA on a daily ba sis, and 1000 international units of vitamin D3. I also suggested he may want to start [place] [employer] mushroom díaz pplemartine, and I recommended to him that he not take any suppleme nts that are from [place], s econdary to quality concern. He will discuss this with his concrete sculptor. We also went over skin management with him and I discussed the use of Cetaphil skin cleanse r, CeraVe skin cream, and the addition of 1% hydrocortisone cream, with the CeraVe, should he start to develop more erythema within the treated region. DICTATED BY: Yue Alvarado MD JOB #: [id number] EXT JOB #:[id number] EDITED: 02/03/2011 14:26 <Electronically Signed by Yue Alvarado MD> 02/03/11 1655 Rodger Gu MD - 01/26/2011 1:54 AM PDTPROGRESS NOTE: 01/26/2011 IDENTIFYING STATEMENT: Papo Daniel (Fritz) is a 70 year old man from [facility] on with recurrent squamous cell carcinoma of [...] origin. 3. Initial management was at the [facility] in [place] (also known as the [facility] in [place], [place]). Treatments included intravenous high-dose vitamin C. 4. On June 06, 2002, he developed recurrent palpable lymphadenopathy in the left side of the neck that was biopsied and confirmed recurrence of squamous cell carcinoma. 5. Between 17 08 and 2003, he received intravenous chemotherapy at the [facility] in [place], [place], including insulin potentiation therapy. 6. He traveled to the [facility] where he received additional insulin potentiation [...] at [facility] in [place], [place] demonstrated progres susannah of disease with [...] a consultation with Dr. Lennon at the [facility] in [place], [place], who recommended palliative radiation therapy. He [...] to see Dr. Silas German at the [facility] in [place], [place], who noted significant decrease in the size of the submental mass. He continued on a lternative medical regimens until January 01, 2011 when he returned to the [facility] in [place], [place] and was evaluated by Dr. Bryant [...] effects. Prescriptions were called in to the [facility] for Zofran 8 m g, no. 30, one p.o. twice daily for the two days after chemotherapy and Ativan one milligra m, no. 30, one tablet every four hours as needed for nausea, anxiety, or restlessness. CC: Dr. Ion Murphy <Electronically Signed by Rodger Gu MD> 02/01/11 0535 Bryant Glover MD - 01/26/2011 1:54 AM [...] were advised that [facility] to have the patient evaluated by his dentist or an oral surgeon pre RT, for pro phylactic measures, which may require prophylactic extractions. At this point, however, the patient has already started on this concurrent course of chemotherapy and radiation therap y, and therefore I miniature set constructor the potential negative consequences of interrupting treatment [...] patient and his were advised to consult [facility] medical oncology prior to any dental work that would need to be done at this point. Radi ation therapy will continue as previously planned. DICTATED BY: Bryant Glover MD JOB #: [id number] EXT JOB #:[id number] cc: Silas German MD <Electronically Signed by [...] | | | | | [place], [place] | | | | | | [id number] | | | | | | | [...] | >60Comment: For | >60 mL/min/A | [facility] | | | GFR | -Americans, [...] + | [facility] | [address] | [place] | [phone] | | [facility] | | [address] | | | - LABORATORY | | | | + + + + + | [facility] | [address] | [place] | | | [facility] | | [address] | | | - LABORATORY | [...] + | [facility] | [address] | [place], [place] | [phone] | | [facility] | | [address] | | | - LABORATORY | | | | + + + + + | [facility] | [address] | [place], [place] | | | [facility] | | [address] [place] [address] | | | - LABORATORY | | [...] + | [facility] | [address] | [place] | [phone] | | [facility] | | [address] | | | - LABORATORY | | | | + + + + + | [facility] | [address] | [place] | | | [facility] | | [address] | | | - LABORATORY | [...] + | [facility] | [address] | [place], [place] | [phone] | | [facility] | | [address] | | | - LABORATORY | | | | + + + + + | [facility] | [address] | [place], [place] | | | [facility] | | [address] | | | - LABORATORY | | [...] + | [facility] | [address] | [place], [place] | [phone] | | [facility] | | [address] | | | - LABORATORY | | | | + + + + + | [facility] | [address] | [place], [place] | | | [facility] | | [address], [facility] | | | - LABORATORY | | [...] + | [facility] | [address] | [place] | [phone] | | [facility] | | [address] | | | - LABORATORY | | | | + + + + + | [facility] | [address] | [place], [place] | | | [facility] | | [address] | | | - LABORATORY | [...] + + | Performing | Address | City/[facility] | Phone Number | | Organization | | | | + + + + + | [facility] | [address] | [place] | [phone] | | [facility] | | [address] | | | - LABORATORY | | | | + + + + + | [facility] | [address] | [place] | | | [facility] | | [address], [facility] | | | - LABORATORY | | [...] [address] | [place] | [phone] | | [facility] | | [address] | | | - LABORATORY | | | | + + + + + | [facility] | [address] | [place] | | | [facility] | | [address], [facility] | | | - LABORATORY | | [...] 18 | 7 - 18 mg/dL | [facility] | | | | | | ST. [...] + | [facility] | [address] | [place], [place] | [phone] | | [facility] | | [address] | | | - LABORATORY | | | | + + + + + | [facility] | [address] | [place], [place] | | | [facility] | | [address] | | | - LABORATORY | [...] + | [facility] | [address] | [place], [place] | [phone] | | [facility] | | [address] | | | - LABORATORY | | | | + + + + + | [facility] | [address] | [place], [place] | | | [facility] | | [address] | | | - LABORATORY | [...] + | [facility] | [address] | [place], [place] | [phone] | | [facility] | | [address] | | | - LABORATORY | | | | + + + + + | [facility] | [address] | [place], [place] | | | [facility] | | [address] | | | - LABORATORY | [...] + | [facility] | [address] | [place] | [phone] | | [facility] | | [address] | | | - LABORATORY | | | | + + + + + | [facility] | [address] | [place], [place] | | | [facility] | | [address], [facility] | | | - LABORATORY | | [...] CENTER - | | | | the [facility] | | LABORATORY | | | | [...] + | [facility] | [address] | [place] | [phone] | | [facility] | | [address] | | | - LABORATORY | | | | + + + + + | [facility] | [address] | [place], [place] | | | [facility] | | [address] | | | - LABORATORY | [...] + | [facility] | [address] | [place] | [phone] | | [facility] | | [address] | | | - LABORATORY | | | | + + + + + | [facility] | [address] | [place] | | | [facility] | | [address] [place] [address] | | | - LABORATORY | | [...] [address] | [place] | [phone] | | [facility] | | [address] | | | - LABORATORY | | | | + + + + + | [facility] | [address] | [place] | | | [facility] | | [address] | | | - LABORATORY | [...] + | [facility] | [address] | [place] | [phone] | | [facility] | | [address] | | | - LABORATORY | | | | + + + + + | [facility] | [address] | [place] | | | [facility] | | [address], [facility] | | | - LABORATORY | | [...] + | [facility] | [address] | [place], [place] | [phone] | | [facility] | | [address] | | | - LABORATORY | | | | + + + + + | [facility] | [address] | [place], [place] | | | [facility] | | [id number] [place] [address] | | | - LABORATORY | | [...] | | | | the [place] | | LABORATORY | | | | [...] + | [facility] | [address] | [place] | [phone] | | [facility] | | [address] | | | - LABORATORY | | | | + + + + + | [facility] | [address] | [place], [place] | | | [facility] | | [address] [place] [address] | | | - LABORATORY | | [...] + | [facility] | [address] | [place] | [phone] | | [facility] | | [address] | | | - LABORATORY | | | | + + + + + | [facility] | [address] | [place], [place] | | | [facility] | | [address] | | | - LABORATORY | [...] + | [facility] | [address] | [place], [place] | [phone] | | [facility] | | [address] | | | - LABORATORY | | | | + + + + + | [facility] | [address] | [place], [place] | | | [facility] | | [address], [facility] | | | - LABORATORY | | [...] [address] | [place] | [phone] | | [facility] | | [address] | | | - LABORATORY | | | | + + + + + | [facility] | [address] | [place] | | | [facility] | | [address], [facility] | | | - LABORATORY | | [...] + | [facility] | [address] | [place] | [phone] | | [facility] | | [address] | | | - LABORATORY | | | | + + + + + | [facility] | [address] | [place] | | | [facility] | | [address] | | | - LABORATORY | | | | + + + + + documented in this encounter Visit Diagnoses Not on filedocumented in this encounter
--- OUTSIDE RECORDS SUMMARY | ~2019-11-13 | XMS | Encounter Summary ---
Demographics + + + | Address | [address] | | | [place] [address] | + + + | Home Phone | | + + + | Preferred Language | Unknown | + + + | Marital Status | | + + + | Spiritism Affiliation | 1069 | + + + | Race | Unknown | + + + | Ethnic Group | Unknown | + + + Author + + + | Author | [facility] | | | and [place] | + + + | Organization | [facility] | | | and [place] | + + + | Address | Unknown | + + + | Phone | Unavailable | + + + Support + + + + + | Name | Relationship | Address | Phone | + + + + + | Daniel Daniel | ECON | [place] | | | | | [address] | | + + + + + | Katherine Daniel | ECON | [address] | | | | | [place] | | | | | [address] | | + + + + + | Katherine Daniel | ECON | [address] | | | | | [place] | | | | | [address] | | + + + + + Care Team Providers + +------+ + | Care Nurses' Association Counselor Name | Role | Phone | + +------+ + PCP | Unavailable | + +------+ + Encounter Details +--------+ + + + + | Date | Type | Department | Care Team | Description | +--------+ + + + + | 02/12/ | Hospital | [facility] | [place]card[place], | | | 2009 - | Encounter | MED CTR CANCER | Rodger Powell MD [address] | | | | [place] [address] | [facility] | | | 02/25/ | | [place], [place] | [place] [address] | | | 2009 | | [address] | [phone] | | | | | [phone] | | | +--------+ + + + [...] | | | | | [place] | | | | | | [address] | | | | | | | | +--------+ + + + + documented as of this encounter Visit Diagnoses Not on filedocumented in this encounter"
--- OUTSIDE RECORDS SUMMARY | ~2019-11-13 | XMS | Clinical Summary ---
Demographics + + + | Address | [address] | | | [place] [address] | + + + | Home Phone [...] Team Providers + +------+ + | Care Residency Coordinator Name | Role | Phone | + +------+ + | Sander Murphy MD | PCP | | + +------+ + Source Comments YASSINE is fully live on both [facility] and [facility] InPatient[facility] Allergies Not on File Medications Not on [...] | | | | | | | [id number] | | + +--------+ +--------+ + +--------+ | [employer] [place] | MUTUAL | [id number] | Effect | [phone] | [address] | Indemn | | MEDICARE SUPPL | OF | | vandana | 0 | [employer] | ity | | | [place] | | for | | [address] [address] | | | | MEDICA | | all | | [place] | | | | RE | | dates | | [address] | | | | SUPPL | | [...] | 1940 | [phone] | [place] [address] | | | sid | | | 5 (Home) | | + +--------+ +--------+ + +"
--- OUTSIDE RECORDS SUMMARY | ~2019-11-13 | XMS | Encounter Summary ---
Demographics + + + | Address | [address] | | | [place] [address] | + + + | Home Phone | | + + + | Preferred Language | Unknown | + + + | Marital Status | | + + + | Yarsani Affiliation | EPI | + + + [...] Team Providers + +------+ + | Care Commercial Litigation Associate Name | Role | Phone | + +------+ + PCP | Unavailable | + +------+ + Encounter Details +--------+ + + + + | Date | Type | Department | Care Team | Description | +--------+ + + + + | 08/09/ | Office | | Note, Outpatient | Progress Note | | 2002 | Visit-Trans | | Clinic | | [...] as of this encounter Progress Notes Interface, Defensive Line Coach In - 01/02/2006 3:09 AM PDTCLINIC DATE: 08/09/2002 OTOLARYNGOLOGY CLINIC Mr. 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 I actually had scheduled his surgery for August 11, 2002, but multiple attempts to contact him were unsuccessful. Multiple messages were left on his telephone answering machine, and I called him myself personally today and again got his answering machine and left a message asking for him to call me. I will await his response. Edis Hatch M.D. Handle Sewer, Otolaryngology [facility] / [id number] / [id number] / [id number] / Tdocumented in this encounter Plan of Treatment Not on filedocumented as of this encounter Visit Diagnoses Not on filedocumented in this encounter"
--- OUTSIDE RECORDS SUMMARY | ~2019-11-13 | XMS | Encounter Summary ---
Demographics + + + | Address | [address] | | | [place] [address] | + + + | Home Phone | | + + + | Preferred Language | Unknown | + + + | Marital Status | | + + + | Mormonism Affiliation | 1069 | + + + | Race | Unknown | + + + | Ethnic Group | Unknown | + + + Author + + + | Author | [facility] | | | and [place] | + + + | Organization | [facility] | | | and [place] | + + + | Address | Unknown | + + + | Phone | Unavailable | + + + Support + + + + + | Name | Relationship | Address | Phone | + + + + + | Daniel Daniel | ECON | [place] | | | | | [address] | | + + + + + | Katherine Daniel | ECON | [address] | | | | | [place] | | | | | [address] | | + + + + + | Katherine Daniel | ECON | [address] | | | | | [place] | | | | | [address] | | + + + + + Care Team Providers + +------+ + | Care Miller Head Wet Process Name | Role | Phone | + +------+ + PCP | Unavailable | + +------+ + Reason for Visit +--------+ + | Reason | Comments | +--------+ + | Other | | +--------+ + Encounter Details +--------+ + + + + | Date | Type | Department | Care Team | Description | +--------+ + + + + | 09/20/ | Telephone | [facility] | Riccardo, | Other | | 2014 | | [facility] | Rodger Powell MD [address] | | | | [facility] [address] | [facility] | | | | | [facility] | [place] [address] | | | | | [place] [address] | [phone] | | | | | [phone] | | | +--------+ + + + [...] | | | | | [place] | | | | | | [address] | | | | | | | | +--------+ + + + + documented as of this encounter Visit Diagnoses Not on filecumented in this encounter"
--- OUTSIDE RECORDS SUMMARY | ~2019-11-13 | XMS | Encounter Summary ---
Demographics + + + | Address | [address] | | | [place] [address] | + + + | Home Phone | | + + + | Preferred Language | Unknown | + + + | Marital Status | | + + + | Cheondoism Affiliation | [id number] | + + + | Race | Unknown | + + + | Ethnic Group | Unknown | + + + Author + + + | Author | [facility] | | | and [place] | + + + | Organization | [facility] | | | and [place] | + + + | Address | Unknown | + + + | Phone | Unavailable | + + + Support + + + + + | Name | Relationship | Address | Phone | + + + + + | Daniel Daniel | ECON | [place] | | | | | [address] | | + + + + + | Katherine Daniel | ECON | [address] | | | | | [place] | | | | | [address] | | + + + + + | Katherine Daniel | ECON | [address] | | | | | [place] | | | | | [address] | | + + + + + Care Team Providers + +------+ + | Care Pc Network Technician Name | Role | Phone | + +------+ + PCP | Unavailable | + +------+ + Encounter Details +--------+ + + + + | Date | Type | Department | Care Team | Description | +--------+ + + + + | 02/23/ | Hospital | [facility] | Cali Alatorre, | | | 2010 - | Encounter | [facility] | [place] [address] | | | | | [place] [address] | [place] | | | 02/25/ | | [place] | [address] | | | 2010 | | [address] | [phone] | | | | | [phone] | | | +--------+ + + + [...] 70 year old man from [facility] on with recurrent squamous cell carcinoma of [...] origin. 3. Initial management was at the [facility] in [place] (also known as the [facility] in [place], [place]). Treatments included intravenous high-dose vitamin C. 4. On June 06, 2002, he developed recurrent palpable lymphadenopathy in the left side of the neck that was biopsied and confirmed recurrence of squamous cell carcinoma. 5. Between 17 08 and 2003, he received intravenous chemotherapy at the [facility] in [place], [place], including insulin potentiation therapy. 6. He [...] March 21, 2009, he began therapy the [facility] with sodium phenylbutyrat e, Rapamune, and oral Xeloda chemotherapy. He continued on the treatment plan with vari ous doses and schedules with stable submental lymphadenopathy until September 25, 2009. 10. He cros sed over to Vectibix chemotherapy September 25, 2009 through January 29, 2010. Repeat CT scan on February 07, 2010 at [facility] in [place], [place] demonstrated progress ion of disease with [...] a consultation with Dr. Lennon at the [facility] in [place], [place], who recommended palliative radiation therapy. He [...] to see Dr. Silas German at the [facility] in [place], [place], who noted significant decrease in the size of the submental mass. He continued on a lternative medical regimens until January 01, 2011 when he returned to the [facility] in [place], [place] and was evaluated by Dr. Bryant [...] Cali Alatorre MD Radiation Oncology JOB #: [id number] EXT JOB #:[id number] <Electronicall y Signed by Cali Alatorre MD> 02/27/11 1705 oRdger Gu MD - 01/26/2011 1:54 AM PDTPROGRESS NOTE: 02/16/2011 IDENTIFYING STATEMENT: Papo Daniel (Fritz) is a 70 year old man from [facility] on with recurrent squamous cell carcinoma of [...] origin. 3. Initial management was at the [facility] in [place] (also known as the [facility] in [place], [place]). Treatments included intravenous high-dose vitamin C. 4. On June 06, 2002, he developed recurrent palpable lymphadenopathy in the left side of the neck that was biopsied and confirmed recurrence of squamous cell carcinoma. 5. Between 17 08 and 2003, he received intravenous chemotherapy at the [facility] in [place], [place], including insulin potentiation therapy. 6. He [...] March 21, 2009, he began therapy the [facility] with sodium phenylbutyrat e, Rapamune, and oral Xeloda chemotherapy. He continued on the treatment plan with vari ous doses and schedules with stable submental lymphadenopathy until September 25, 2009. 10. He cros sed over to Vectibix chemotherapy September 25, 2009 through January 29, 2010. Repeat CT scan on February 07, 2010 at [facility] in [place], [place] demonstrated progress ion of disease with [...] a consultation with Dr. Lennon at the [facility] in [place], [place], who recommended palliative radiation therapy. He [...] to see Dr. Silas German at the [facility] in [place], [place], who noted significant decrease in the size of the submental mass. He continued on a lternative medical regimens until January 01, 2011 when he returned to the [facility] in [place], [place] and was evaluated by Dr. Bryant [...] week. ASSESSMENT: Mr. Daniel is nearing the snf point through his combined chemoradiotherapy treatments of [...] Cali Alatorre MD Radiation Oncology JOB #: [id number] EXT JOB #:[id number] <Electronicall y Signed by aCli Alatorre MD> 02/19/112018 Rodger Gu MD - 01/26/2011 1:54 AM PDTPROGRESS NOTE 02/09/2011 IDENTIFYING STATEMENT: Papo Daniel (Fritz) is a 70 year old man from [facility] on with recurrent squamous cell carcinoma of [...] origin. 3. Initial management was at the [facility] in [place] (also known as the [facility] in [place], [place]). Treatments included intravenous high-dose vitamin C. 4. On June 06, 2002, he developed recurrent palpable lymphadenopathy in the left side of the neck that was biopsied and confirmed recurrence of squamous cell carcinoma. 5. Bet 2001 and 2003, he received intravenous chemotherapy at the [facility] in [place], [place], including insulin potentiation therapy. 6. He traveled to the [facility] where he received additional insulin potentiation therapy and intralesional injection of chemotherapy between 2003 and 2004. 7. He then cross ed over to naturopathic treatment following the Oliver regimen. 8. In December 2007, he develo ped progressive submental lymphadenopathy that was confirmed to be malignant by CT PET scan February 23, 2009. 9. On March 21, 2009, he began therapy the [facility] with sodium phenylbutyrat e, Rapamune, and oral Xeloda chemotherapy. He continued on the treatment plan with vari ous doses and schedules with stable submental lymphadenopathy until September 25, 2009. 10. He crossed over to Vectibix chemotherapy September 25, 2009 through January 29, 2010. Repeat CT sca n on February 07, 2010 at [facility] in [place], [place] demonstrated progression of disease with increase [...] had a consultation with Dr. Lennon at [facility] in [place], [place], who recommended p alliative radiation therapy. [...] to see Dr. Silas German at the [facility] in [place], [place], who noted significant decrease in the size of the submental mass. He con tinued on alternative medical regimens until January 01, 2011 when he returned to the [facility] in [place], [place] and was evaluated by Dr. Eddi [...] carcinoma o f the base of the [facility]. The patient has received a total of [...] Cali Alatorre MD Radiation Oncology JOB #: [id number] EXT JOB #:[id number] <Electronicall y Signed by Cali Alatorre MD> 02/13/11 1637 Rodger Gu MD - 01/26/2011 1:54 AM PDTPROGRESS NOTE: 02/02/2011 IDENTIFYING STATEMENT: Papo Daniel (Fritz) is a 70 year old man from [facility] on with recurrent squamous cell carcinoma of [...] origin. 3. Initial management was at the [facility] in [place] (also known as the [facility] in [place], [place]). Treatments included intravenous high-dose vitamin C. 4. On June 06, 2002, he developed recurrent palpable lymphadenopathy in the left side of the neck that was biopsied and confirmed recurrence of squamous cell carcinoma. 5. Between 17 08 and 2003, he received intravenous chemotherapy at the [facility] in [place], [place], including insulin potentiation therapy. 6. He [...] March 21, 2009, he began therapy the [facility] with sodium phenylbutyrat e, Rapamune, and oral Xeloda chemotherapy. He continued on the treatment plan with vari ous doses and schedules with stable submental lymphadenopathy until September 25, 2009. 10. He cros sed over to Vectibix chemotherapy September 25, 2009 through January 29, 2010. Repeat CT scan on February 07, 2010 at [facility] in [place], [place] demonstrated progres susannah of disease with [...] a consultation with Dr. Lennon at the [facility] in [place], [place], who recommended palliative radiation therapy. He [...] to see Dr. Silas German at the [facility] in [place], [place], who noted significant decrease in the size of the submental mass. He continued on a lternative medical regimens until January 01, 2011 when he returned to the [facility] in [place], [place] and was evaluated by Dr. Bryant [...] he is currently receiving acupuncture, and his family living educator was wondering if he coul d start him on additional supplementation. I recommended to the patien t if he is taking nothing curre ntly that he take Peck-3 fatty acids, with a total dose of at least 1000 mg of ETA DHA on a daily ba sis, and 1000 international units of vitamin D3. I also suggested he may want to start [place] [employer] mushroom díaz pplemartine, and I recommended to him that he not take any suppleme nts that are from [place], s econdary to quality concern. He will discuss this with his family living educator. We also went over skin management with him and I discussed the use of Cetaphil skin cleanse r, CeraVe skin cream, and the addition of 1% hydrocortisone cream, with the CeraVe, should he start to develop more erythema within the treated region. DICTATED BY: Yue Alvarado MD JOB #: [id number] EXT JOB #:[id number] EDITED: 02/03/2011 14:26 <Electronically Signed by Yue Alvarado MD> 02/03/11 1655 Rodger Gu MD - 01/26/2011 1:54 AM PDTPROGRESS NOTE: 01/26/2011 IDENTIFYING STATEMENT: Papo Daniel (Fritz) is a 70 year old man from [facility] on with recurrent squamous cell carcinoma of [...] origin. 3. Initial management was at the [facility] in [place] (also known as the [facility] in [place], [place]). Treatments included intravenous high-dose vitamin C. 4. On June 06, 2002, he developed recurrent palpable lymphadenopathy in the left side of the neck that was biopsied and confirmed recurrence of squamous cell carcinoma. 5. Between 17 08 and 2003, he received intravenous chemotherapy at the [facility] in [place], [place], including insulin potentiation therapy. 6. He [...] CT scan on February 07, 2010 at [facility] in [place], [place] demonstrated progres susannah of disease with [...] a consultation with Dr. Lennon at the [facility] in [place], [place], who recommended palliative radiation therapy. He [...] to see Dr. Silas German at the [facility] in [place], [place], who noted significant decrease in the size of the submental mass. He continued on a lternative medical regimens until January 01, 2011 when he returned to the [facility] in [place], [place] and was evaluated by Dr. Bryant [...] effects. Prescriptions were called in to the [facility] for Zofran 8 m g, no. 30, one p.o. twice daily for the two days after chemotherapy and Ativan one milligra m, no. 30, one tablet every four hours as needed for nausea, anxiety, or restlessness. CC: Dr. Ion Murphy <Electronically Signed by Rodger Gu MD> 02/01/11 8312 Bryant Glover MD - 01/26/2011 1:54 AM [...] were advised that it would be my [facility] to have the patient evaluated by his dentist or an oral surgeon pre RT, for pro phylactic measures, which may require prophylactic extractions. At this point, however, the patient has already started on this concurrent course of chemotherapy and radiation therap y, and therefore I diving judge the potential negative consequences of interrupting treatment [...] patient and his were advised to consult [facility] medical oncology prior to any dental work that would need to be done at this point. Radi ation therapy will continue as previously planned. DICTATED BY: Bryant Glover MD JOB #: [id number] EXT JOB #:[id number] cc: Silas German MD <Electronically Signed by [...] | | | | | [place], [place] | | | | | | [id number] | | | | | | | [...] | >60Comment: For | >60 mL/min/A | [facility] | | | GFR | -Americans, | [...] + | [facility] | [address] | [place] | [phone] | | [facility] | | [address] | | | - LABORATORY | | | | + + + + + | [facility] | [address] | [place] | | | [facility] | | [id number] | | | - LABORATORY [...] + | [facility] | [address] | [place], [place] | [phone] | | [facility] | | [address] | | | - LABORATORY | | | | + + + + + | [facility] | [address] | [place], [place] | | | [facility] | | [address] [place] [address] | | | - LABORATORY | | [...] + | [facility] | [address] | [place] | [phone] | | [facility] | | [address] | | | - LABORATORY | | | | + + + + + | [facility] | [address] | [place] | | | [facility] | | [id number] | | | - LABORATORY [...] + | [facility] | [address] | [place], [place] | [phone] | | [facility] | | [address] | | | - LABORATORY | | | | + + + + + | [facility] | [address] | [place], [place] | | | [facility] | | [id number] | | | - LABORATORY | | [...] + | [facility] | [address] | [place], [place] | [phone] | | [facility] | | [address] | | | - LABORATORY | | | | + + + + + | [facility] | [address] | [place], [place] | | | [facility] | | [address], [facility] | | | - LABORATORY | | [...] + | [facility] | [address] | [place] | [phone] | | [facility] | | [address] | | | - LABORATORY | | | | + + + + + | [facility] | [address] | [place], [place] | | | [facility] | | [id number] | | | - LABORATORY [...] + + | Performing | Address | City/[facility] | Phone Number | | Organization | | | | + + + + + | [facility] | [address] | [place] | [phone] | | [facility] | | [address] | | | - LABORATORY | | | | + + + + + | [facility] | [address] | [place] | | | [facility] | | [address], [facility] | | | - LABORATORY | | [...] [address] | [place] | [phone] | | [facility] | | [address] | | | - LABORATORY | | | | + + + + + | [facility] | [address] | [place] | | | [facility] | | [address], [facility] | | | - LABORATORY | | [...] 18 | 7 - 18 mg/dL | [facility] | | | | | | ST. [...] + | [facility] | [address] | [place], [place] | [phone] | | [facility] | | [address] | | | - LABORATORY | | | | + + + + + | [facility] | [address] | [place], [place] | | | [facility] | | [id number] | | | - LABORATORY [...] + | [facility] | [address] | [place], [place] | [phone] | | [facility] | | [address] | | | - LABORATORY | | | | + + + + + | [facility] | [address] | [place], [place] | | | [facility] | | [address] | | | - LABORATORY [...] + | [facility] | [address] | [place], [place] | [phone] | | [facility] | | [address] | | | - LABORATORY | | | | + + + + + | [facility] | [address] | [place], [place] | | | [facility] | | [address] | | | - LABORATORY [...] + | [facility] | [address] | [place] | [phone] | | [facility] | | [address] | | | - LABORATORY | | | | + + + + + | [facility] | [address] | [place], [place] | | | [facility] | | [address], [facility] | | | - LABORATORY | | [...] CENTER - | | | | the [facility] | | LABORATORY | | | | [...] + | [facility] | [address] | [place] | [phone] | | [facility] | | [address] | | | - LABORATORY | | | | + + + + + | [facility] | [address] | [place], [place] | | | [facility] | | [address] | | | - LABORATORY [...] + | [facility] | [address] | [place] | [phone] | | [facility] | | [address] | | | - LABORATORY | | | | + + + + + | [facility] | [address] | [place] | | | [facility] | | [address] [place] [address] | | | - LABORATORY | | [...] [address] | [place] | [phone] | | [facility] | | [address] | | | - LABORATORY | | | | + + + + + | [facility] | [address] | [place] | | | [facility] | | [address] | | | - LABORATORY [...] + | [facility] | [address] | [place] | [phone] | | [facility] | | [address] | | | - LABORATORY | | | | + + + + + | [facility] | [address] | [place] | | | [facility] | | [address], [facility] | | | - LABORATORY | | [...] + | [facility] | [address] | [place], [place] | [phone] | | [facility] | | [address] | | | - LABORATORY | | | | + + + + + | [facility] | [address] | [place], [place] | | | [facility] | | [id number] [place] [address] | | | - LABORATORY | | [...] | | | | the [facility] | | LABORATORY | | | | [...] + | [facility] | [address] | [place] | [phone] | | [facility] | | [address] | | | - LABORATORY | | | | + + + + + | [facility] | [address] | [place], [place] | | | [facility] | | [address] [place] [address] | | | - LABORATORY | | [...] + | [facility] | [address] | [place] | [phone] | | [facility] | | [address] | | | - LABORATORY | | | | + + + + + | [facility] | [address] | [place], [place] | | | [facility] | | [address] | | | - LABORATORY [...] + | [facility] | [address] | [place], [place] | [phone] | | [facility] | | [address] | | | - LABORATORY | | | | + + + + + | [facility] | [address] | [place], [place] | | | [facility] | | [address], [facility] | | | - LABORATORY | | [...] [address] | [place] | [phone] | | [facility] | | [address] | | | - LABORATORY | | | | + + + + + | [facility] | [address] | [place] | | | [facility] | | [address], [facility] | | | - LABORATORY | | [...] + | [facility] | [address] | [place] | [phone] | | [facility] | | [address] | | | - LABORATORY | | | | + + + + + | [facility] | [address] | [place] | | | [facility] | | [address] | | | - LABORATORY | | | | + + + + + documented in this encounter Visit Diagnoses Not on filedocumented in this encounter
--- OUTSIDE RECORDS SUMMARY | ~2019-11-13 | XMS | Encounter Summary ---
Demographics + + + | Address | [address] | | | [place] [address] | + + + | Home Phone | | + + + | Preferred Language | Unknown | + + + | Marital Status | | + + + | Advent Affiliation | 1069 | + + + | Race | Unknown | + + + | Ethnic Group | Unknown | + + + Author + + + | Author | [facility] | | | and [place] | + + + | Organization | [facility] | | | and [place] | + + + | Address | Unknown | + + + | Phone | Unavailable | + + + Support + + + + + | Name | Relationship | Address | Phone | + + + + + | Daniel Daniel | ECON | [place] | | | | | [address] | | + + + + + | Katherine Daniel | ECON | [address] | | | | | [place] | | | | | [address] | | + + + + + | Katherine Daniel | ECON | [address] | | | | | [place] | | | | | [address] | | + + + + + Care Team Providers + +------+ + | Care Grain Operations Manager Name | Role | Phone | + +------+ + | Tracie Cm MD | PCP | | + +------+ + Encounter Details +--------+ + + + + | Date | Type | Department | Care Team | Description | +--------+ + + + + | 04/08/ | Orders Only | [facility] | [place] | | | 2017 | | CONVERSION [address] | [address] | | | | | [address] | [address] [place], | | | | | [place], [place] | [place] [address] | | | | | [address] | [phone] | | | | | [phone] | | | +--------+ + + + [...] | | | | | [place] | | | | | | [address] | | | | | | | | +--------+ + + + + documented as of this encounter Procedures + +--------+ + + + | Procedure Name | Priori | Date/Time | Associated Diagnosis | Comments | | | ty | | | | + +--------+ + + + | ECHO INTERPRETATION | Routin | 04/08/2017 | | Results for this | | OF OUTSIDE FILMS | e | 3:14 PM | | procedure are in the | | | | PDT | | results section. | + +--------+ + + + documented in this encounter Results ECHO Interpretation of Outside Films (04/08/2017 3:14 PM PDT) + + | Specimen | + + | | + + + + + | Impressions | Performed At | + + + | 1. The left ventricle is normal in size, moderate systolic | | | impairment with EF 35-40%. Abnormal septal motion due to severe | | | pulmonary hypertension and paced rhythm. 2. The right ventricle is | | | severely enlarged with mild impaired systolic function. 3. The aortic | | | valve is moderately calcified with moderate to severe stenosis. 4. | | | S/P mitral clip repair, however moderate mitral regurgitation and | | | moderate stenosis mean gradient of 5 mmHg. 5. Severe tricuspid | | | regurgitation with severe tricuspid regurgitation RVSP 64 mmHg. 6. | | | There is no pericardial effusion. 7. Patent septal puncture with left | | | to right shunt due to mitral clip procedure. | | + + + + + + | Narrative | Performed At | + + + | Patient Name: Ti Daniel Date of : 1940 | | | Performing Physician: Yasmin Bates | | | | | | INDICATIONS S/P MV repair CONCLUSIONS | | | 1. The left ventricle is normal in size, moderate systolic impairment | | | with EF 35-40%. Abnormal septal motion due to severe pulmonary | | | hypertension and paced rhythm. 2. The right ventricle is severely | | | enlarged with mild impaired systolic function. 3. The aortic valve is | | | moderately calcified with moderate to severe stenosis. 4. S/P mitral | | | clip repair, however moderate mitral regurgitation and moderate | | | stenosis mean gradient of 5 mmHg. 5. Severe tricuspid regurgitation | | | with severe tricuspid regurgitation RVSP 64 mmHg. 6. There is no | | | pericardial effusion. 7. Patent septal puncture with left to right | | | shunt due to mitral clip procedure. FINDINGS -------- ECG | | | rhythm: [...] ventricle cavity size is normal. Left Ventricle: There is mild | | | concentric left ventricular hypertrophy. Left Ventricle: There is | | | moderate global hypokinesis of LV contractility. Left Ventricle: | | | There is paradoxical/dysynergic septal motion consistent with RV | | | pacing. Right Ventricle: The right ventricle is severely enlarged. | | | Right Ventricle: The right ventricular systolic function is moderately | | | impaired. Right Ventricle: Pacer/ICD wire seen. Left Atrium: The | | | left atrium is markedly enlarged. Right Atrium: The right atrium is | | | markedly enlarged. Right Atrium: Pacemaker wire seen in the right | | | atrial cavity. Aortic Valve: Aortic valve is trileaflet and is | | | moderately thickened. Aortic Valve: The aortic valve is moderately | | | calcified. Aortic Valve: There is no evidence of aortic | | | regurgitation. Aortic Valve: Moderate to severe aortic stenosis with | | | peak/mean pressure gradient of 19.36mmHg / 11.31mmHg, the aortic valve | | | area by continuity equation is 1.1cm . Mitral Valve: Moderate | | | mitral regurgitation is present. Mitral Valve: Elongated and | | | redundant anterior mitral leaflet. Mitral Valve: S/P mitral repair | | | peak 18 mmHg mean 5 mmHg. Mitral Valve: S/P mitral clip repair, | | | however moderate to severe mitral regurgitation. Tricuspid Valve: The | | | tricuspid valve appears structurally normal. Tricuspid Valve: Severe | | | tricuspid regurgitation present. Tricuspid Valve: There is severe | | | pulmonary hypertension. Tricuspid Valve: The right ventricular | | | systolic pressure (pulmonary artery systolic pressure), as measured by | | | Doppler, is 63.61mmHg. Pulmonic Valve: The pulmonic valve is normal. | | | Pulmonic Valve: Moderate pulmonic regurgitation. Pericardium: There | | | is no pericardial effusion. Pericardium: No pleural effusion seen. | | | IVC/Hepatic Veins: The IVC is dilated (>2.5cm) and collapses <50% with | | | sniff, consistent with central venous pressures of 15-20mmHg. Aorta: | | | The aortic root, ascending aorta and aortic arch are normal. Septum: | | | Patent septal puncture with left to right shunt, due to mitral clip | | | procedure. MEASUREMENTS Ao asc: 3.33 cm Ao | | | Diam: 3.57 cm Ao sinus: 3.[address] junct: 3.53 cm IVC: | | | 3.24 cm LA Diam: 5.78 cm LA Major: 7.09 cm EDV(Teich): | | | 150.52 ml IVSd: 1.26 cm LVIDd: 5.54 cm LVPWd: 1.25 cm | | | LVOT Area: 3.80 cm2 LVOT Diam: 2.20 cm %FS: 11.30 % | | | EF(Teich): 24.23 % ESV(Teich): 114.03 ml LVIDs: 4.92 cm | | | SV(Teich): 36.48 ml RA Major: 6.04 cm RV Major: 9.08 cm | | | RVIDd: 4.05 cm LVEF MOD A2C: 35.83 % SV MOD A2C: 60.73 ml | | | LVEF MOD A4C: 29.19 % SV MOD A4C: 57.67 ml EF Biplane: | | | 35.33 % LVEDV MOD BP: 194.17 ml LVESV MOD BP: 125.56 ml LVEDV | | | MOD A2C: 169.49 ml LVLd A2C: 8.43 cm LVEDV MOD A4C: 197.57 | | | ml LVLd A4C: 9.58 cm LVESV MOD A2C: 108.76 ml LVLs A2C: | | | 8.02 cm LVESV MOD A4C: 139.90 ml LVLs A4C: 8.42 cm | | | LAESV(A-L): 142.43 ml LAESV Index (A-L): 71.21 ml/m2 LAAs A2C: | | | 34.01 cm2 LAESV A-L A2C: 146.13 ml LALs A2C: 6.72 cm LAAs | | | A4C: 33.15 cm2 LAESV A-L A4C: 130.21 ml LALs A4C: 7.16 cm | | | RAAs: 29.50 cm2 RAESV A-L: 109.45 ml RAESV MOD: 109.04 ml | | | RALs: 6.82 cm TAPSE: 2.15 cm AV maxP.36 mmHg AV | | | meanP.30 mmHg AV Vmax: 2.19 m/s AV Vmean: 1.59 m/s AV | | | VTI: 49.97 cm MARLI Vmax: 1.20 cm2 MARLI (VTI): 1.12 cm2 AVAI | | | Vmax: 0.00 cm2/m2 AVAI (VTI): 0.00 cm2/m2 LVOT maxP.93 | | | mmHg LVOT meanP.04 mmHg LVSI Dopp: 28.17 ml/m2 LVSV | | | Dopp: 56.35 ml LVOT Vmax: 0.69 m/s LVOT Vmean: 0.48 m/s | | | LVOT VTI: 14.81 cm MV maxP.24 mmHg MV meanP.94 | | | mmHg MV Vmax: 2.07 m/s MV Vmean: 0.97 m/s MV VTI: 59.72 cm | | | MVA (VTI): 0.94 cm2 Septal e': 0.06 m/s Lateral e': 0.05 | | | m/s Systemic VTI: 116.52 cm RAP: 20 mmHg RVSP: 63.60 mmHg | | | TR maxP.60 mmHg TR Vmax: 3.30 m/s Digital Marketing Specialist: AMBROSE | | | Authenticated by: Yasmin Brayden Report Date/Time: 04-08-2017 | | | 18:16:40 | | + + + + + | Procedure Note | + + | Serafin Meza Conversion - 02/16/2019 5:54 PM PDT Patient Name: Ashlyn Daniel of | | : 1940 Performing Physician: Yasmin | | Susanamara INDICATIONS------ | | -----S/P MV repair CONCLUSIONS 1. The left ventricle is normal in size, | | moderate systolic impairment with EF 35-40%. Abnormal septal motion due to severe | | pulmonary hypertension and paced rhythm.2. The right ventricle is severely enlarged with | | mild impaired systolic function.3. The aortic valve is moderately calcified with | | moderate to severe stenosis.4. S/P mitral clip repair, however moderate mitral | | regurgitation and moderate stenosis mean gradient of 5 mmHg.5. Severe tricuspid | | regurgitation with severe tricuspid regurgitation RVSP 64 mmHg.6. There is no | | pericardial effusion.7. Patent septal puncture with left to right shunt due to mitral | | clip procedure. FINDINGS--------ECG rhythm: Paced rhythm.Study: A 2-dimensional | | transthoracic echocardiogram with m-mode, spectral and color flow Doppler was | | perfomed.Study: This was a technically adequate study.Left Ventricle: Overall left | | ventricular systolic function is moderately impaired with, an EF between 35 - 40 %.Left | | Ventricle: The left ventricle cavity size is normal.Left Ventricle: There is mild | | concentric left ventricular hypertrophy.Left Ventricle: There is moderate global | | hypokinesis of LV contractility.Left Ventricle: There is paradoxical/dysynergic septal | | motion consistent with RV pacing.Right Ventricle: The right ventricle is severely | | enlarged.Right Ventricle: The right ventricular systolic function is moderately | | impaired.Right Ventricle: Pacer/ICD wire seen.Left Atrium: The left atrium is markedly | | enlarged.Right Atrium: The right atrium is markedly enlarged.Right Atrium: Pacemaker | | wire seen in the right atrial cavity.Aortic Valve: Aortic valve is trileaflet and is | | moderately thickened.Aortic Valve: The aortic valve is moderately calcified.Aortic | | Valve: There is no evidence of aortic regurgitation.Aortic Valve: Moderate to severe | | aortic stenosis with peak/mean pressure gradient of 19.36mmHg / 11.31mmHg, the aortic | | valve area by continuity equation is 1.1cm .Mitral Valve: Moderate mitral | | regurgitation is present.Mitral Valve: Elongated and redundant anterior mitral | | leaflet.Mitral Valve: S/P mitral repair peak 18 mmHg mean 5 mmHg.Mitral Valve: S/P | | mitral clip repair, however moderate to severe mitral regurgitation.Tricuspid Valve: The | | tricuspid valve appears structurally normal.Tricuspid Valve: Severe tricuspid | | regurgitation present.Tricuspid Valve: There is severe pulmonary hypertension.Tricuspid | | Valve: The right ventricular systolic pressure (pulmonary artery systolic pressure), as | | measured by Doppler, is 63.61mmHg.Pulmonic Valve: The pulmonic valve is normal.Pulmonic | | Valve: Moderate pulmonic regurgitation.Pericardium: There is no pericardial | | effusion.Pericardium: No pleural effusion seen.IVC/Hepatic Veins: The IVC is dilated | | (>2.5cm) and collapses <50% with sniff, consistent with central venous pressures of | | 15-20mmHg.Aorta: The aortic root, ascending aorta and aortic arch are normal.Septum: | | Patent septal puncture with left to right shunt, due to mitral clip procedure. | | MEASUREMENTS Ao asc: 3.33 cmAo Diam: 3.57 cmAo sinus: 3.[address] | | junct: 3.53 cmIVC: 3.24 cmLA Diam: 5.78 cmLA Major: 7.09 cmEDV(Teich): 150.52 | | mlIVSd: 1.26 cmLVIDd: 5.54 cmLVPWd: 1.25 cmLVOT Area: 3.80 [id number] Diam: 2.20 | | cm%FS: 11.30 %EF(Teich): 24.23 %ESV(Teich): 114.03 mlLVIDs: 4.92 cmSV(Teich): | | 36.48 mlRA Major: 6.04 cmRV Major: 9.08 cmRVIDd: 4.05 cmLVEF MOD A2C: 35.83 %SV | | MOD A2C: 60.73 mlLVEF MOD A4C: 29.19 %SV MOD A4C: 57.67 mlEF Biplane: 35.33 | | %LVEDV MOD BP: 194.17 mlLVESV MOD BP: 125.56 mlLVEDV MOD A2C: 169.49 mlLVLd A2C: | | 8.43 cmLVEDV MOD A4C: 197.57 mlLVLd A4C: 9.58 cmLVESV MOD A2C: 108.76 mlLVLs A2C: | | 8.02 cmLVESV MOD A4C: 139.90 mlLVLs A4C: 8.42 cmLAESV(A-L): 142.43 mlLAESV | | Index (A-L): 71.21 ml/m2LAAs A2C: 34.01 [id number] A-L A2C: 146.13 mlLALs A2C: | | 6.72 cmLAAs A4C: 33.15 [id number] A-L A4C: 130.21 mlLALs A4C: 7.16 cmRAAs: 29.50 | | [id number] A-L: 109.45 mlRAESV MOD: 109.04 mlRALs: 6.82 cmTAPSE: 2.15 cmAV maxPG: | | 19.36 mmHgAV meanP.30 mmHgAV Vmax: 2.19 m/Naima Vmean: 1.59 m/Naima VTI: | | 49.97 cmAVA Vmax: 1.20 cm2AVA (VTI): 1.12 [id number] Vmax: 0.00 cm2/m2AVAI (VTI): | | 0.00 cm2/m2LVOT maxP.93 mmHgLVOT meanP.04 mmHgLVSI Dopp: 28.17 ml/m2LVSV | | Dopp: 56.35 mlLVOT Vmax: 0.69 m/sLVOT Vmean: 0.48 m/sLVOT VTI: 14.81 cmMV maxPG: | | 17.24 mmHgMV meanP.94 mmHgMV Vmax: 2.07 m/sMV Vmean: 0.97 m/sMV VTI: | | 59.72 cmMVA (VTI): 0.94 [id number] e': 0.06 m/sLateral e': 0.05 m/sSystemic VTI: | | 116.52 cmRAP: 20 mmHgRVSP: 63.60 mmHgTR maxP.60 mmHgTR Vmax: 3.30 m/s | | Digital Marketing Specialist: Beticated by: Yasmin More Date/Time: 04-08-2017 18:16:40 | | IMPRESSION: 1. The left ventricle is normal in size, moderate systolic impairment with | | EF 35-40%. Abnormal septal motion due to severe pulmonary hypertension and paced | | rhythm.2. The right ventricle is severely enlarged with mild impaired systolic | | function.3. The aortic valve is moderately calcified with moderate to severe stenosis.4. | | S/P mitral clip repair, however moderate mitral regurgitation and moderate stenosis | | mean gradient of 5 mmHg.5. Severe tricuspid regurgitation with severe tricuspid | | regurgitation RVSP 64 mmHg.6. There is no pericardial effusion.7. Patent septal puncture | | with left to right shunt due to mitral clip procedure. | |EDV(Teich): 150.52 ml | |IVSd: 1.26 cm | |LVIDd: 5.54 cm | |LVPWd: 1.25 cm | |LVOT Area: 3.80 cm2 | |LVOT Diam: 2.20 cm | |%FS: 11.30 % | |EF(Teich): 24.23 % | |ESV(Teich): 114.03 ml | |LVIDs: 4.92 cm | |SV(Teich): 36.48 ml | |RA Major: 6.04 cm | |RV Major: 9.08 cm | |RVIDd: 4.05 cm | |LVEF MOD A2C: 35.83 % | |SV MOD A2C: 60.73 ml | |LVEF MOD A4C: 29.19 % | |SV MOD A4C: 57.67 ml | |EF Biplane: 35.33 % | |LVEDV MOD BP: 194.17 ml | |LVESV MOD BP: 125.56 ml | |LVEDV MOD A2C: 169.49 ml | |LVLd A2C: 8.43 cm | |LVEDV MOD A4C: 197.57 ml | |LVLd A4C: 9.58 cm | |LVESV MOD A2C: 108.76 ml | |LVLs A2C: 8.02 cm | |LVESV MOD A4C: 139.90 ml | |LVLs A4C: 8.42 cm | |LAESV(A-L): 142.43 ml | |LAESV Index (A-L): 71.21 ml/m2 | |LAAs A2C: 34.01 cm2 | |LAESV A-L A2C: 146.13 ml | |LALs A2C: 6.72 cm | |LAAs A4C: 33.15 cm2 | |LAESV A-L A4C: 130.21 ml | |LALs A4C: 7.16 cm | |RAAs: 29.50 cm2 | |RAESV A-L: 109.45 ml | |RAESV MOD: 109.04 ml | |RALs: 6.82 cm | |TAPSE: 2.15 cm | |AV maxP.36 mmHg | |AV meanP.30 mmHg | |AV Vmax: 2.19 m/s | |AV Vmean: 1.59 m/s | |AV VTI: 49.97 cm | |MARLI Vmax: 1.20 cm2 | |MARLI (VTI): 1.12 cm2 | |AVAI Vmax: 0.00 cm2/m2 | |AVAI (VTI): 0.00 cm2/m2 | |LVOT maxP.93 mmHg | |LVOT meanP.04 mmHg | |LVSI Dopp: 28.17 ml/m2 | |LVSV Dopp: 56.35 ml | |LVOT Vmax: 0.69 m/s | |LVOT Vmean: 0.48 m/s | |LVOT VTI: 14.81 cm | |MV maxP.24 mmHg | |MV meanP.94 mmHg | |MV Vmax: 2.07 m/s | |MV Vmean: 0.97 m/s | |MV VTI: 59.72 cm | |MVA (VTI): 0.94 cm2 | |Septal e': 0.06 m/s | |Lateral e': 0.05 m/s | |Systemic VTI: 116.52 cm | |RAP: 20 mmHg | |RVSP: 63.60 mmHg | |TR maxP.60 mmHg | |TR Vmax: 3.30 m/s | | | |Digital Marketing Specialist: AMBROSE | |Authenticated by: Yasmin Bates | |Report Date/Time: 04-08-2017 18:16:40 | | | |IMPRESSION: | |1. The left ventricle is normal in size, moderate systolic impairment with EF 35-40%. Abnor mal septal motion due to severe pulmonary hypertension and paced rhythm. | |2. The right ventricle is severely enlarged with mild impaired systolic function. | |3. The aortic valve is moderately calcified with moderate to severe stenosis. | |4. S/P mitral clip repair, however moderate mitral regurgitation and moderate stenosis mean gradient of 5 mmHg. | |5. Severe tricuspid regurgitation with severe tricuspid regurgitation RVSP 64 mmHg. | |6. There is no pericardial effusion. | |7. Patent septal puncture with left to right shunt due to mitral clip procedure. | + + documented in this encounter Visit Diagnoses Not on filedocumented in this encounter"
--- OUTSIDE RECORDS SUMMARY | ~2019-11-13 | XMS | Encounter Summary ---
Demographics + + + | Address | [address] | | | [place] [address] | + + + | Home Phone | | + + + | Preferred Language | Unknown | + + + | Marital Status | | + + + | Orthodoxy Affiliation | 1069 | + + + | Race | Unknown | + + + | Ethnic Group | Unknown | + + + Author + + + | Author | [facility] | | | and [place] | + + + | Organization | [facility] | | | and [place] | + + + | Address | Unknown | + + + | Phone | Unavailable | + + + Support + + + + + | Name | Relationship | Address | Phone | + + + + + | Daniel Daniel | ECON | [place] | | | | | [address] | | + + + + + | Katherine Daniel | ECON | [address] | | | | | [place] | | | | | [address] | | + + + + + | Katherine Daniel | ECON | [address] | | | | | [place] | | | | | [address] | | + + + + + Care Team Providers + +------+ + | Care Detailer Pharmaceuticals Name | Role | Phone | + +------+ + | Tracie Cm MD | PCP | | + +------+ + Reason for Visit + + + | Reason | Comments | + + + | CHF Management | | + + + Encounter Details +--------+ + + + + | Date | Type | Department | Care Team | Description | +--------+ + + + + | 09/11/ | Telephone | [facility] | Clau Avila | CHF Management | | 2020 | | CARDIOLOGY VANESSA Jamison RN | | | | | [address] | | | | | | [place] | | | | | | [address] | | | | | | [phone] | | | +--------+ + + + [...] [place] | | | | | | [address] | | | | | | | | +--------+ + + + + documented as of this encounter Visit Diagnoses Not on filedocumented in this encounter"
--- OUTSIDE RECORDS SUMMARY | ~2019-11-13 | XMS | Encounter Summary ---
Demographics + + + | Address | [address] | | | [place] [address] | + + + | Home Phone | | + + + | Preferred Language | Unknown | + + + | Marital Status | | + + + | Latter Day Affiliation | EPI | + + + | Race | White | + + + | Ethnic Group | Not or | + + + Author + + + | Author | [facility] | + + + | Organization | [facility] | + + + | Address | Unknown | + + + | Phone | Unavailable | + + + Support + + +---------+ + | Name | Relationship | Address | Phone | + + +---------+ + | Katherine Daniel | ECON | Unknown | | + + +---------+ + Care Team Providers + +------+ + | Care Brazer Assembler Name | Role | Phone | [...] as of this encounter Progress Notes Interface, Flight Purser In - 03/17/2006 3:11 AM PDTCLINIC DATE: [...] visit in 6 weeks. Edis Hatch M.D. Selector Packer, Otolaryngology, Head and Neck Surgery [facility] / [id number] / [id number] / [id number] / [id number] signed by Interface, Flight Purser In at 03/17/2006 3:11 AM PDTdoc umented in this encounter Plan of Treatment Not on filedocumented as of this encounter Visit Diagnoses Not on filedocumented in this encounter"
--- OUTSIDE RECORDS SUMMARY | ~2019-11-13 | XMS | Encounter Summary ---
Demographics + + + | Address | [address] | | | [place] [address] | + + + | Home Phone | | + + + | Preferred Language | Unknown | + + + | Marital Status | | + + + | Episcopalian Affiliation | EPI | + + + | Race | White | + + + | Ethnic Group | Not or | + + + Author + + + | Author | [facility] | + + + | Organization | [facility] | + + + | Address | Unknown | + + + | Phone | Unavailable | + + + Support + + +---------+ + | Name | Relationship | Address | Phone | + + +---------+ + | Katherine Daniel | ECON | Unknown | | + + +---------+ + Care Team Providers + +------+ + | Care Edge Banding Off Bearer Name | Role | Phone | + +------+ + | Sander Murphy MD | PCP | | + +------+ + Encounter Details +--------+ + + + + | Date | Type | Department | Care Team | Description | +--------+ + + + + | 05/17/ | Telephone | [facility] | Simon Novoa, OD | | | 2013 | | [place] [facility] | [address] | | | | | [address] | [place] [address] | | | | | Mailcode: [facility] | [phone] | | | | | [facility] | | | | | | and [place], | | | | | | | | | | | | Floor [place], [place] | | | | | | [address] | | | | | | [phone] | | | +--------+ + + + [...]
--- OUTSIDE RECORDS SUMMARY | ~2019-11-13 | XMS | Encounter Summary ---
Demographics + + + | Address | [address] | | | [place] [address] | + + + | Home Phone | | + + + | Preferred Language | Unknown | + + + | Marital Status | | + + + | Samaritan Affiliation | 1069 | + + + | Race | Unknown | + + + | Ethnic Group | Unknown | + + + Author + + + | Author | [facility] | | | and [place] | + + + | Organization | [facility] | | | and [place] | + + + | Address | Unknown | + + + | Phone | Unavailable | + + + Support + + + + + | Name | Relationship | Address | Phone | + + + + + | Daniel Daniel | ECON | [place] | | | | | [address] | | + + + + + | Katherine Daniel | ECON | [address] | | | | | [place] | | | | | [address] | | + + + + + | Katherine Daniel | ECON | [address] | | | | | [place] | | | | | [address] | | + + + + + Care Team Providers + +------+ + | Care Lithographic Printing Machinist Name | Role | Phone | + [...] | | | | [address] | [place] [address] | | | | | [place] [address] | | | | | | [phone] | | | +--------+ + + + [...] | | | | | [place], [place] | | | | | | [address] | | | | | | | [...]
--- OUTSIDE RECORDS SUMMARY | ~2019-11-13 | XMS | Encounter Summary ---
Demographics + + + | Address | [address] | | | [place] [address] | + + + | Home Phone | | + + + | Preferred Language | Unknown | + + + | Marital Status | | + + + | Roman Catholic Affiliation | EPI | + + + [...] Team Providers + +------+ + | Care Creative Technologist Name | Role | Phone | + [...] as of this encounter Progress Notes Interface, Bacteriology Technician In - 01/25/2006 1:15 AM PDTCLINIC DATE: 06/06/2002 OTOLARYNGOLOGY CLINIC HISTORY: Mr. Daniel returns for a followup visit. He just got back from [place] and during that time, he got quite ill, but he is feeling better now. His main concern is that he has developed a lump in the left side of his neck, and he did see Dr. Lackey in [place] for this last week, and they did [...] I did obtain the FNA report from [place] on a needle aspiration done on May [...] tells me that he is seeing a beamster in [place] and would like to go consult with [...] so with his decision. Edis Hatch M.D. Compressor Operator Adjuster of Otolaryngology [facility] / [id number] / [id number] / [id number] / [id number] cc: Anand Lackey M.D. [address] [place] [id number] signed by Interface, Bacteriology Technician In at 01/25/2006 1:1 5 AM PDTdocumented in this encounter Plan of Treatment Not on filedocumented as of this encounter Visit Diagnoses Not on filedocumented in this encounter"
--- OUTSIDE RECORDS SUMMARY | ~2019-11-13 | XMS | Encounter Summary ---
Demographics + + + | Address | [address] | | | [place] [address] | + + + | Home Phone [...] Author | [facility] | | | and [place] | + + + | Organization | [facility] [...] [place] | | | | | [address] | | + + + + + | Katherine Daniel | ECON | [address] | | | | | [place] | | | | | [address] | | + + + + + | Katherine Daniel | ECON | [address] | | | | | [place] | | | | | [address] | | + + + + + Care Team Providers + +------+ + | Care Vice Provost Name | Role | Phone | + +------+ + | Tracie Cm MD | PCP | | + +------+ + Reason for Visit + + + | Reason | Comments | + + + | Device Check | | | (Remote) | | + + + Encounter Details +--------+ + + + + | Date | Type | Department | Care Team | Description | +--------+ + + + + | 09/06/ | Procedure | [facility] | | Biventricular ICD | | 2020 | visit | CARDIOLOGY [place] | | (implantable | | | | [address] | | cardioverter-defibri | | | | [place], [place] | | llator) in place | | | | [address] | | (Primary Dx) | | | | [phone] | | | +--------+ + + + [...] | | | | | | [facility] | | | | | | [address] | | | | | | | [...] | | + +--------+ + + + documented in this encounter Results Device Interrogation - Remote (09/06/2019 8:00 AM PDT) + + + | Narrative | Performed At | + + + | [facility] | | YARA Arvizu 09/07/2019 3:11 PMICD REMOTE INTERROGATION REPORT | | | Name: David Daniel PCP: Tracie Cm MD : 1940MRN: | | | [id number] Primary cardiology provider: Yasmin Bates Primary | | | electrophysiology provider: Alireza Urbina Device sheet rock applicator: | | | Medtronic Device type: Biventricular [...] + | Diagnosis | + + | Biventricular ICD (implantable cardioverter-defibrillator) in place - Primary | + + documented in this encounter"
--- OUTSIDE RECORDS SUMMARY | ~2019-11-13 | XMS | Encounter Summary ---
Demographics + + + | Address | [address] | | | [place] [address] | + + + | Home Phone | | + + + | Preferred Language | Unknown | + + + | Marital Status | | + + + | Zoroastrian Affiliation | 1069 | + + + | Race | Unknown | + + + | Ethnic Group | Unknown | + + + Author + + + | Author | [facility] | | | and [place] | + + + | Organization | [facility] [...] [place] | | | | | [address] | | + + + + + | Katherine Daniel | ECON | [address] | | | | | [place] | | | | | [address] | | + + + + + | Katherine Daniel | ECON | [address] | | | | | [place] | | | | | [address] | | + + + + + Care Team Providers + +------+ + | Care Role Player Name | Role | Phone | + [...] | +--------+ + + + + | 07/25/ | Telephone | [facility] | Yasmin Bates, | Device Check | | 2020 | | CARDIOLOGY [place]ANESSA | [address] | | | | | [address] | [place], [place] | | | | | [place], [place] | [address] | | | | | [address] | | | | | | [phone] | | | +--------+ + + + [...] [place] | | | | | | [address] | | | | | | | | +--------+ + + + + documented as of this encounter Visit Diagnoses Not on filedocumented in this encounter"
--- OUTSIDE RECORDS SUMMARY | ~2019-11-13 | XMS | Encounter Summary ---
Demographics + + + | Address | [address] | | | [place] [address] | + + + | Home Phone | | + + + | Preferred Language | Unknown | + + + | Marital Status | | + + + | Congregation Affiliation | 1069 | + + + | Race | Unknown | + + + | Ethnic Group | Unknown | + + + Author + + + | Author | [facility] | | | and [place] | + + + | Organization | [facility] | | | and [place] | + + + | Address | Unknown | + + + | Phone | Unavailable | + + + Support + + + + + | Name | Relationship | Address | Phone | + + + + + | Daniel Daniel | ECON | [place] | | | | | [address] | | + + + + + | Katherine Daniel | ECON | [address] | | | | | [place] | | | | | [address] | | + + + + + | Katherine Daniel | ECON | [address] | | | | | [place] | | | | | [address] | | + + + + + Care Team Providers + +------+ + | Care Human Resources Trainer Name | Role | Phone | + +------+ + PCP | Unavailable | + +------+ + Encounter Details +--------+ + + + + | Date | Type | Department | Care Team | Description | +--------+ + + + + | 09/01/ | Hospital | [facility] | Cali Alatorre, | | | 2011 - | Encounter | MED CTR CANCER | [place] [address] | | | | | [place] [address] | [place] | | | 09/25/ | | [place] | [address] | | | 2011 | | [address] | [phone] | | | | | [phone] | | | +--------+ + + + [...] | | | | | [place] | | | | | | [address] | | | | | | | | +--------+ + + + + documented as of this encounter Visit Diagnoses Not on filedocumented in this encounter"
--- OUTSIDE RECORDS SUMMARY | ~2019-11-13 | XMS | Encounter Summary ---
Demographics + + + | Address | [address] | | | [place] [address] | + + + | Home Phone | | + + + | Preferred Language | Unknown | + + + | Marital Status | | + + + | Sikh Affiliation | EPI | + + + | Race | White | + + + | Ethnic Group | Not or | + + + Author + + + | Author | [facility] | + + + | Organization | [facility] | + + + | Address | Unknown | + + + | Phone | Unavailable | + + + Support + + +---------+ + | Name | Relationship | Address | Phone | + + +---------+ + | Katherine Daniel | ECON | Unknown | | + + +---------+ + Care Team Providers + +------+ + | Care Cnc Mechanic Name | Role | Phone | + [...] as of this encounter Progress Notes Interface, Blueprint Cutter In - 03/02/2006 3:02 AM PDTCLINIC DATE: [...] him at that time. Edis Hatch M.D. Certified Registered Nurse Practitioner of Otolaryngology [facility] / JODEE [id number] / [id number] / [id number] / Tdocumented in this encounter Plan of Treatment Not on filedocumented as of this encounter Visit Diagnoses Not on filedocumented in this encounter"
--- OUTSIDE RECORDS SUMMARY | ~2019-11-13 | XMS | Encounter Summary ---
Demographics + + + | Address | [address] | | | [place] [address] | + + + | Home Phone | | + + + | Preferred Language | Unknown | + + + | Marital Status | | + + + | Methodist Affiliation | 1069 | + + + | Race | Unknown | + + + | Ethnic Group | Unknown | + + + Author + + + | Author | [facility] | | | and [place] | + + + | Organization | [facility] | | | and [place] | + + + | Address | Unknown | + + + | Phone | Unavailable | + + + Support + + + + + | Name | Relationship | Address | Phone | + + + + + | Daniel Daniel | ECON | [place] | | | | | [address] | | + + + + + | Katherine Daniel | ECON | [address] | | | | | [place] | | | | | [address] | | + + + + + | Katherine Daniel | ECON | [address] | | | | | [place] | | | | | [address] | | + + + + + Care Team Providers + +------+ + | Care Caul Puller Name | Role | Phone | + [...] + + | 07/25/ | Telephone | [facility] | Yasmin Bates, | Device Check | | 2020 | | CARDIOLOGY VANESSA | [address] | | | | | [address] | [place], [place] | | | | | [place], [place] | [address] | | | | | [address] | | | | | | [phone] | | | +--------+ + + + [...] [place] | | | | | | [address] | | | | | | | | +--------+ + + + + documented as of this encounter Visit Diagnoses Not on filedocumented in this encounter"
--- OUTSIDE RECORDS SUMMARY | ~2019-11-13 | XMS | Encounter Summary ---
Demographics + + + | Address | [address] | | | [place] [address] | + + + | Home Phone | | + + + | Preferred Language | Unknown | + + + | Marital Status | | + + + | Baptist Affiliation | 1069 | + + + | Race | Unknown | + + + | Ethnic Group | Unknown | + + + Author + + + | Author | [facility] | | | and [place] | + + + | Organization | [facility] | | | and [place] | + + + | Address | Unknown | + + + | Phone | Unavailable | + + + Support + + + + + | Name | Relationship | Address | Phone | + + + + + | Daniel Daniel | ECON | [place] | | | | | [address] | | + + + + + | Katherine Daniel | ECON | [address] | | | | | [place] | | | | | [address] | | + + + + + | Katherine Daniel | ECON | [address] | | | | | [place] | | | | | [address] | | + + + + + Care Team Providers + +------+ + | Care Bilingual Kindergarten Teacher Name | Role | Phone | + +------+ + PCP | Unavailable | + +------+ + Encounter Details +--------+ + + + + | Date | Type | Department | Care Team | Description | +--------+ + + + + | 06/02/ | Hospital | [facility] | Cali Alatorre, | | | 2010 - | Encounter | MED CTR CANCER | [place] [address] | | | | | [place] [address] | [place] | | | 06/27/ | | [place] | [address] | | | 2010 | | [address] | [phone] | | | | | [phone] | | | +--------+ + + + [...] encounter Progress Notes Cali Alatorre MD - 06/02/2011 2:43 AM PSTDATE: 06/02/2011 RADIATION ONCOLOGY FOLLOWUP NOTE FOLLOWUP NOTE: Mr. 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 The patient had been treated with multiple diffe rent and alternative therapies, with multiple recurrences over the years. Alternative thera py also included high-dose gaby min C, as well as intralesional chemotherapy. Early in 2010 , the patient was treated with 3000 cGy to a submental lymph node, did have good reduction in the size of that lesion. This summer, the patient was found to have bilateral cervical l ymphadenopathy, and was treated with a definitive course of ra diotherapy, including the ba se of tongue and cervical lymph node region, and did receive 7000 cGy to the base of tongue and involved lymph nodes, and 5940 cGy to the left franki regions, completing this treatmen ts on 03/12/2011. The patient comes in today for further followup. The patient states that overall he is feeling well. He denies any difficulties with swallow ing, state s that his appetite and taste have improved. He says he has good moisture in his mouth. The patient i s somewhat concerned about swelling underneath his chin and neck, sta salma that around Thanksgiving it was very marked, but has gone down over the last couple of weeks. The patient states that his energy level is improving, but continues to be lower dominique n what he would like. He is trying to get out to exe rcise. He does things he enjoys, it is much easier to do, but he does not like going to the gym and w orking out. He continues to be somewhat sensitive to certain foods, including salsa, but otherwise fe els that is impr oving. The patient does continue to get acupuncture, as well as use infrared light wh ile h e sleeps on the neck region. The patient denies any new lymphadenopathy. PHYSICAL EXAMINATION VITAL SIGNS: Blood pressure 128/68, pulse of 52, weight 76.5 kg, temperature 36.9 degrees Celsius. GENERAL: The patient is awake, alert and oriented, in no apparent distress. HEENT: Head is atraumatic, normocephalic. Face is symmetric. Oral mucosa is moist and pi nk. There are no mucosal abnormalities noted in the oral cavity or posterior oropharynx. The floor of mouth, tongue and base of tongue are all soft to palpation. NECK: There is no preauricular, postauricular, cervical or supraclavicular lymphadenopathy appreciat ed bilaterally. PROCEDURE: Nasopharyngeal laryngoscopy. 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 DESCRIPTION OF PROCEDURE: Cetacaine was applied into the left nares. The endoscope was the n advanced along the floor of the left nasal cavity and back into the nasopharynx and down into the oropharynx. The base of tongue, follicular, and piriform sinuses were visualized, without any mucosal abnormali ty noted. Vocal cords were visualized and were found to be moving freely with phonation. The endosc ope was then withdrawn. The patient tolerated th e procedure well. ASSESSMENT AND PLAN: Mr. Ti Daniel is a 71-year-old gentleman with a 10-year history of a head and n sally malignancy. At this time, there is no clinical evidence of recurrence disea se, and the patient i s recovering from his chemoradiotherapy. The patient had been set up to follow with [facility], the patient stated that he did not wish to spend all of his time in doctors offices, and did wis h to be solely followed up here. I did encoura ge him to consider being followed by Dr. Feliz, as he does have a lot of experience that I feel would be an asset in evaluation of Mr. Daniel. At this time , the patient is doing wel l, with no evidence of disease. I would like him to return in three months for further fol lowup. Initially, we had discussed following every eight to twelve weeks, however, marcelo garcia did wish to spread out his followups somewhat. DICTATED BY: Cali Alatorre MD Radiation Oncology JOB #: [id number] EXT JOB #:[id number] cc: MD Sander Duncan MD <Electronically Signed by Cali Alatorre MD> 06/17/11 0058 documented in this encounter Plan of Treatment [...] [place] | | | | | | [address] | | | | | | | | +--------+ + + + + documented as of this encounter Visit Diagnoses Not on filedocumented in this encounter"
--- OUTSIDE RECORDS SUMMARY | ~2019-11-13 | XMS | Encounter Summary ---
Demographics + + + | Address | [address] | | | [place] [address] | + + + | Home Phone [...] Author | [facility] | | | and [place] | + + + | Organization | [facility] | | | and [place] | + + + | Address | Unknown | + + + | Phone | Unavailable | + + + Support + + + + + | Name | Relationship | Address | Phone | + + + + + | Daniel Daniel | ECON | [place] | | | | | [address] | | + + + + + | Katherine Daniel | ECON | [address] | | | | | [place] | | | | | [address] | | + + + + + | Katherine Daniel | ECON | [address] | | | | | [place] | | | | | [address] | | + + + + + Care Team Providers + +------+ + | Care Flare Man Name | Role | Phone | + +------+ + | Tracie Cm MD | PCP | | + +------+ + Reason for Visit + + + | Reason | Comments | + + + | Advice Only | | + + + Encounter Details +--------+ + + + + | Date | Type | Department | Care Team | Description | +--------+ + + + + | 05/11/ | Telephone | [facility] | Yasmin Bates, | Advice Only | | 2019 | | ANNELIESE MENDEZ | [address] | | | | | [address] | [place], [place] | | | | | [place], [place] | [address] | | | | | [address] | | | | | | [phone] | | | +--------+ + + + [...] [place] | | | | | | [address] | | | | | | | | +--------+ + + + + documented as of this encounter Visit Diagnoses Not on filedocumented in this encounter"
--- OUTSIDE RECORDS SUMMARY | ~2019-11-13 | XMS | Encounter Summary ---
Demographics + + + | Address | [address] | | | [place] [address] | + + + | Home Phone | | + + + | Preferred Language | Unknown | + + + | Marital Status | | + + + | Methodist Affiliation | 1069 | + + + | Race | Unknown | + + + | Ethnic Group | Unknown | + + + Author + + + | Author | [facility] | | | and [place] | + + + | Organization | [facility] | | | and [place] | + + + | Address | Unknown | + + + | Phone | Unavailable | + + + Support + + + + + | Name | Relationship | Address | Phone | + + + + + | Daniel Daniel | ECON | [place] | | | | | [address] | | + + + + + | Katherine Daniel | ECON | [address] | | | | | [place] | | | | | [address] | | + + + + + | Katherine Daniel | ECON | [address] | | | | | [place] | | | | | [address] | | + + + + + Care Team Providers + +------+ + | Care Equipment Maintenance Engineer Name | Role | Phone | + +------+ + PCP | Unavailable | + +------+ + Encounter Details +--------+ + + + + | Date | Type | Department | Care Team | Description | +--------+ + + + + | 11/13/ | Hospital | [facility] | Riccardo, | | | 2009 - | Encounter | MED CTR CANCER | Rodger Powell MD [address] | | | | | [place] [address] | [address] [facility] | | | 11/25/ | | [place], [place] | [place] [address] | | | 2009 | | [address] | [phone] | | | | | [phone] | | | +--------+ + + + [...] | | | | | [place] | | | | | | [address] | | | | | | | | +--------+ + + + + documented as of this encounter Visit Diagnoses Not on filedocumented in this encounter"
--- OUTSIDE RECORDS SUMMARY | ~2019-11-13 | XMS | Encounter Summary ---
Demographics + + + | Address | [address] | | | [place] [address] | + + + | Home Phone | | + + + | Preferred Language | Unknown | + + + | Marital Status | | + + + | Religion Affiliation | 1069 | + + + | Race | Unknown | + + + | Ethnic Group | Unknown | + + + Author + + + | Author | [facility] | | | and [place] | + + + | Organization | [facility] | | | and [place] | + + + | Address | Unknown | + + + | Phone | Unavailable | + + + Support + + + + + | Name | Relationship | Address | Phone | + + + + + | Daniel Daniel | ECON | [place] | | | | | [address] | | + + + + + | Katherine Daniel | ECON | [address] | | | | | [place] | | | | | [address] | | + + + + + | Katherine Dainel | ECON | [address] | | | | | [place] | | | | | [address] | | + + + + + Care Team Providers + +------+ + | Care Adult Educator Name | Role | Phone | + +------+ + | Tracie Cm MD | PCP | | + +------+ + Reason for Visit + + + | Reason | Comments | + + + | Medication Question | Torsemide | + + + Encounter Details +--------+ + + + + | Date | Type | Department | Care Team | Description | +--------+ + + + + | 11/08/ | Telephone | [facility] | Susantia Jerryravinder, | Medication Question | | 2019 | | CARDIOLOGY VANESSA | MD Aamir YOON | (Torsemide) | | | | [address] | [place], [place] | | | | | [place], [place] | [address] | | | | | [address] | | | | | | [phone] | | | +--------+ + + + [...] [place] | | | | | | [address] | | | | | | | | +--------+ + + + + documented as of this encounter Visit Diagnoses Not on filedocumented in this encounter"
--- OUTSIDE RECORDS SUMMARY | ~2019-11-13 | XMS | Encounter Summary ---
Demographics + + + | Address | [address] | | | [place] [address] | + + + | Home Phone | | + + + | Preferred Language | Unknown | + + + | Marital Status | | + + + | Mu-Ism Affiliation | 1069 | + + + | Race | Unknown | + + + | Ethnic Group | Unknown | + + + Author + + + | Author | [facility] | | | and [place] | + + + | Organization | [facility] | | | and [place] | + + + | Address | Unknown | + + + | Phone | Unavailable | + + + Support + + + + + | Name | Relationship | Address | Phone | + + + + + | Daniel Daniel | ECON | [place] | | | | | [address] | | + + + + + | Katherine Daniel | ECON | [address] | | | | | [place] | | | | | [address] | | + + + + + | Katherine Daniel | ECON | [address] | | | | | [place] | | | | | [address] | | + + + + + Care Team Providers + +------+ + | Care Vp Emerging Media Name | Role | Phone | + +------+ + PCP | Unavailable | + +------+ + Encounter Details +--------+ + + + + | Date | Type | Department | Care Team | Description | +--------+ + + + + | 03/26/ | Hospital | [facility] | Cali Alatorre, | | | 2010 - | Encounter | MED CTR OP REHAB | [address] | | | | | [address] | [place] | | | 03/31/ | | [place] [address] | [address] | | | 2010 | | [phone] | [phone] | | | | | | | [...] ma rkedly improved and has enjoyed a Austrian dinner as well as a salmon dinner [...] seen by Dr. Feliz, ENT surgeon in [facility] for further followu p as well as myself. At this time we would like the patient to return in 2 months for [facility] followup. The patient and his are agreeable to this plan. DICTATED BY: Cali Alatorre MD Radiation Oncology JOB #: [id number] [id number] JOB #:[id number] cc: MD Faizan Lauren MD <Electronically Signed [...] [place] | | | | | | [address] | | | | | | | | +--------+ + + + + documented as of this encounter Visit Diagnoses Not on filedocumented in this encounter"
--- OUTSIDE RECORDS SUMMARY | ~2019-11-13 | XMS | Encounter Summary ---
Demographics + + + | Address | [address] | | | [place] [address] | + + + | Home Phone | | + + + | Preferred Language | Unknown | + + + | Marital Status | | + + + | Pentecostal Affiliation | EPI | + + + | Race | White | + + + | Ethnic Group | Not or | + + + Author + + + | Author | [facility] | + + + | Organization | [facility] | + + + | Address | Unknown | + + + | Phone | Unavailable | + + + Support + + +---------+ + | Name | Relationship | Address | Phone | + + +---------+ + | Katherine Daniel | ECON | Unknown | | + + +---------+ + Care Team Providers + +------+ + | Care Sharepoint Analyst Name | Role | Phone | + [...] as of this encounter Progress Notes Thomas, Orderlies Teacher In - 03/10/2006 1:11 AM PDTCLINIC DATE: [...] weeks. Edis Hatch M.D. [place] / [place] [id number] / [id number] / [id number] / [id number] signed by Thomas, Orderlies Teacher In at 03/10/2006 1:11 AM PDTdoc umented in this encounter Plan of Treatment Not on filedocumented as of this encounter Visit Diagnoses Not on filedocumented in this encounter"
--- OUTSIDE RECORDS SUMMARY | ~2019-11-13 | XMS | Encounter Summary ---
Demographics + + + | Address | [address] | | | [place] [address] | + + + | Home Phone | | + + + | Preferred Language | Unknown | + + + | Marital Status | | + + + | Scientologist Affiliation | EPI | + + + | Race | White | + + + | Ethnic Group | Not or | + + + Author + + + | Author | [facility] | + + + | Organization | [facility] | + + + | Address | Unknown | + + + | Phone | Unavailable | + + + Support + + +---------+ + | Name | Relationship | Address | Phone | + + +---------+ + | Katherine Daniel | ECON | Unknown | | + + +---------+ + Care Team Providers + +------+ + | Care Liaison Officer Name | Role | Phone | + +------+ + | Sander Murphy MD | PCP | | + +------+ + Encounter Details +--------+ + + + + | Date | Type | Department | Care Team | Description | +--------+ + + + + | 05/17/ | Telephone | [facility] | Simon Novoa, OD | | | 2013 | | [place] [facility] | [address] | | | | | [address] | [place] [address] | | | | | Mailcode: [facility] | [phone] | | | | | [facility] | | | | | | and [place], | | | | | | | | | | | | Floor [place], [place] | | | | | | [address] | | | | | | [phone] | | | +--------+ + + + [...]
--- OUTSIDE RECORDS SUMMARY | ~2019-11-13 | XMS | Encounter Summary ---
Demographics + + + | Address | [address] | | | [place] [address] | + + + | Home Phone | | + + + | Preferred Language | Unknown | + + + | Marital Status | | + + + | Restoration Affiliation | 1069 | + + + | Race | Unknown | + + + | Ethnic Group | Unknown | + + + Author + + + | Author | [facility] | | | and [place] | + + + | Organization | [facility] | | | and [place] | + + + | Address | Unknown | + + + | Phone | Unavailable | + + + Support + + + + + | Name | Relationship | Address | Phone | + + + + + | Daniel Daniel | ECON | [place] | | | | | [address] | | + + + + + | Katherine Daniel | ECON | [address] | | | | | [place] | | | | | [address] | | + + + + + | Katherine Daniel | ECON | [address] | | | | | [place] | | | | | [address] | | + + + + + Care Team Providers + +------+ + | Care Area Field Manager Name | Role | Phone | [...] + + | 06/02/ | Refill | [facility] | Ben Lopez, | Medication Refill | | 2019 | | CARDIOLOGY V[place] | Township Clerk | (Hydralazine) | | | | [address] | | | | | | [place] | | | | | | [address] | | | | | | [phone] | | | +--------+--------+ + + + [...] [place] | | | | | | [address] | | | | | | | | +--------+ + + + + documented as of this encounter Visit Diagnoses Not on filedocumented in this encounter"
--- OUTSIDE RECORDS SUMMARY | ~2019-11-13 | XMS | Encounter Summary ---
Demographics + + + | Address | [address] | | | [place] [address] | + + + | Home Phone | | + + + | Preferred Language | Unknown | + + + | Marital Status | | + + + | Yazidism Affiliation | 1069 | + + + | Race | Unknown | + + + | Ethnic Group | Unknown | + + + Author + + + | Author | [facility] | | | and [place] | + + + | Organization | [facility] | | | and [place] | + + + | Address | Unknown | + + + | Phone | Unavailable | + + + Support + + + + + | Name | Relationship | Address | Phone | + + + + + | Daniel Daniel | ECON | [place] | | | | | [address] | | + + + + + | Katherine Daniel | ECON | [address] | | | | | [place] | | | | | [address] | | + + + + + | Katherine Daniel | ECON | [address] | | | | | [place] | | | | | [address] | | + + + + + Care Team Providers + +------+ + | Care Flower Maker Name | Role | Phone | [...] | +--------+ + + + + | 08/02/ | Telephone | [facility] | Yasmin Bates, | Device Check | | 2020 | | CARDIOLOGY VANESSA | [address] | | | | | [address] | [place], [place] | | | | | [place], [place] | [address] | | | | | [address] | | | | | | [phone] | | | +--------+ + + + [...] [place] | | | | | | [address] | | | | | | | | +--------+ + + + + documented as of this encounter Visit Diagnoses Not on filedocumented in this encounter"
--- OUTSIDE RECORDS SUMMARY | ~2019-11-13 | XMS | Encounter Summary ---
Demographics + + + | Address | [address] | | | [place] [address] | + + + | Home Phone [...] Author | [facility] | | | and [place] | + + + | Organization | [facility] | | | and [place] | + + + | Address | Unknown | + + + | Phone | Unavailable | + + + Support + + + + + | Name | Relationship | Address | Phone | + + + + + | Daniel Daniel | ECON | [place] | | | | | [address] | | + + + + + | Katherine Daniel | ECON | [address] | | | | | [place] | | | | | [address] | | + + + + + | Katherine Daniel | ECON | [address] | | | | | [place] | | | | | [address] | | + + + + + Care Team Providers + +------+ + | Care Database Security Expert Name | Role | Phone | + [...] + + | 06/26/ | Refill | [facility] | Yasmin Bates, | Medication Refill | | 2019 | | CARDIOLOGY [place] | MD Aamir YOON | (Lisinopril) | | | | [address] | [place], [place] | | | | | [place] [facility] | [address] | | | | | [place] | | | | | | [address] | | | | | | [phone] | | | +--------+--------+ + + + [...] [place] | | | | | | [address] | | | | | | | | +--------+ + + + + documented as of this encounter Visit Diagnoses Not on filedocumented in this encounter"
--- OUTSIDE RECORDS SUMMARY | ~2019-11-13 | XMS | Encounter Summary ---
Demographics + + + | Address | [address] | | | [place] [address] | + + + | Home Phone | | + + + | Preferred Language | Unknown | + + + | Marital Status | | + + + | Christian Affiliation | 1069 | + + + | Race | Unknown | + + + | Ethnic Group | Unknown | + + + Author + + + | Author | [facility] | | | and [place] | + + + | Organization | [facility] | | | and [place] | + + + | Address | Unknown | + + + | Phone | Unavailable | + + + Support + + + + + | Name | Relationship | Address | Phone | + + + + + | Daniel Daniel | ECON | [place] | | | | | [address] | | + + + + + | Katherine Daniel | ECON | [address] | | | | | [place] | | | | | [address] | | + + + + + | Katherine Daniel | ECON | [address] | | | | | [place] | | | | | [address] | | + + + + + Care Team Providers + +------+ + | Care Car Repairer Apprentice Name | Role | Phone | + [...] + + | 09/11/ | Telephone | [facility] | Clau Avlia | CHF Management | | 2020 | | CARDIOLOGY VANESSA Jamison RN | | | | | [address] | | | | | | [place] | | | | | | [address] | | | | | | [phone] | | | +--------+ + + + [...] [place] | | | | | | [address] | | | | | | | | +--------+ + + + + documented as of this encounter Visit Diagnoses Not on filedocumented in this encounter"
--- OUTSIDE RECORDS SUMMARY | ~2019-11-13 | XMS | Encounter Summary ---
Demographics + + + | Address | [address] | | | [place] [address] | + + + | Home Phone [...] + + | Author | [facility] | | | and [place] | + + + | Organization | [facility] | | | and [place] | + + + | Address | Unknown | + + + | Phone | Unavailable | + + + Support + + + + + | Name | Relationship | Address | Phone | + + + + + | Daniel Daniel | ECON | [place] | | | | | [address] | | + + + + + | Katherine Daniel | ECON | [address] | | | | | [place] | | | | | [address] | | + + + + + | Katherine Daniel | ECON | [address] | | | | | [place] | | | | | [address] | | + + + + + Care Team Providers + +------+ + | Care Cigar Making Machine Supervisor Name | Role | Phone | [...] | | | | SP NATARAJAN | [place] [address] | | | | | [place] [address] | | | | | | [phone] | | | +--------+ + + + [...] | | | | | [place], [place] | | | | | | [address] | | | | | | | [...]
--- OUTSIDE RECORDS SUMMARY | ~2019-11-13 | XMS | Encounter Summary ---
Demographics + + + | Address | [address] | | | [place] [address] | + + + | Home Phone | | + + + | Preferred Language | Unknown | + + + | Marital Status | | + + + | Zoroastrianism Affiliation | EPI | + + + [...] Team Providers + +------+ + | Care Educational Technician Name | Role | Phone | [...] | Transcriptions | + + | Interface, Security Architect In - 04/21/2006 3:04 AM PDT | | [facility] [address] | | [place], [place] [address] | | [facility] Rec No[facility] | | [id number] Date: 12/23/2000Name: Krystina Daniel SURGEON: | | Edis Hatch M.D.PRISM MEASURER(S): Brent Mock, | | Reinaldo.PREOPERATIVE DIAGNOSIS(ES):Metastatic squamous [...] | | | | | | | |[id number] | + + documented in this encounter Visit Diagnoses Not on filedocumented in this encounter"
--- OUTSIDE RECORDS SUMMARY | ~2019-11-13 | XMS | Encounter Summary ---
Demographics + + + | Address | [address] | | | [place] [address] | + + + | Home Phone | | + + + | Preferred Language | Unknown | + + + | Marital Status | | + + + | Yazidism Affiliation | 1069 | + + + | Race | Unknown | + + + | Ethnic Group | Unknown | + + + Author + + + | Author | [facility] | | | and [place] | + + + | Organization | [facility] | | | and [place] | + + + | Address | Unknown | + + + | Phone | Unavailable | + + + Support + + + + + | Name | Relationship | Address | Phone | + + + + + | Daniel Daniel | ECON | [place] | | | | | [address] | | + + + + + | Katherine Daniel | ECON | [address] | | | | | [place] | | | | | [address] | | + + + + + | Katherine Daniel | ECON | [address] | | | | | [place] | | | | | [address] | | + + + + + Care Team Providers + +------+ + | Care Jig Bore Tool Maker Name | Role | Phone | [...] | | | | SP NATARAJAN | [place] [address] | | | | | [place] [address] | | | | | | [phone] | | | +--------+ + + + [...] | | | | | [place], [place] | | | | | | [address] | | | | | | | | +--------+ + + + + documented as of this encounter Procedures + +--------+ + + + | Procedure Name | Priori | Date/Time | Associated Diagnosis | Comments | | | ty | | | | + +--------+ + + + | CT LUMBAR SPINE WO | Routin | 03/31/2018 | | Results for this | | CONTRAST | e | 2:10 PM | | procedure are in the | | | | PDT | | results section. | + +--------+ + + + documented in this encounter Results CT Lumbar Spine wo Contrast (03/31/2018 2:10 PM PDT) + + | Specimen | [...]
--- OUTSIDE RECORDS SUMMARY | ~2019-11-13 | XMS | Encounter Summary ---
Demographics + + + | Address | [address] | | | [place] [address] | + + + | Home Phone | | + + + | Preferred Language | Unknown | + + + | Marital Status | | + + + | Gnosticist Affiliation | EPI | + + + | Race | White | + + + | Ethnic Group | Not or | + + + Author + + + | Author | [facility] | + + + | Organization | [facility] | + + + | Address | Unknown | + + + | Phone | Unavailable | + + + Support + + +---------+ + | Name | Relationship | Address | Phone | + + +---------+ + | Katherine Daniel | ECON | Unknown | | + + +---------+ + Care Team Providers + +------+ + | Care Cook Sauce Name | Role | Phone | + +------+ + PCP | Unavailable | + +------+ + Encounter Details +--------+ + + + + | Date | Type | Department | Care Team | Description | +--------+ + + + + | 01/04/ | Office | [facility] | Note, [...] as of this encounter Progress Notes Interface, Tanbark Laborer In - 04/17/2006 1:00 AM PDTCLINIC DATE: 01/04/2001 OTOLARYNGOLOGY CLINIC HISTORY OF PRESENT ILLNESS: Mr. 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 He did have his drain removed in [place] by Dr. Lackey last week. He is feeling well and having only mild pain. PHYSICAL EXAMINATION: He looks well. His neck is well healed. His shoulder function is good. I discussed his pathology with him which did show one node positive in the neck without extracapsular extension. All of the gland biopsies done at the time of the endoscopy were negative for malignancy as well. I spent sometime talking with him and his regarding management. From this point forward, what we have decided to do is close observation as the risk of him manifesting his unknown primary at this point without radiation is probably only about 30% and this decreases to about 16% with postoperative radiation therapy. He is comfortable with this and will return to see me in one month. Edis Hatch M.D. [facility] / [id number] / [id number] / [id number] / cc: AMBER LACKEY M.D. [address] [address] DOROTEO GOMEZ M.D. [address] [place] [address] [id number] signed by Interface, Tanbark Laborer In at 04/17/2006 1:00 AM PDTdocume nted in this encounter Plan of Treatment Not on filedocumented as of this encounter Visit Diagnoses Not on filedocumented in this encounter"
--- OUTSIDE RECORDS SUMMARY | ~2019-11-13 | XMS | Encounter Summary ---
Demographics + + + | Address | [address] | | | [place] [address] | + + + | Home Phone [...] + | Author | [facility] | | | and [place] | + + + | Organization | [facility] | | | and [place] | + + + | Address | Unknown | + + + | Phone | Unavailable | + + + Support + + + + + | Name | Relationship | Address | Phone | + + + + + | Daniel Daniel | ECON | [place] | | | | | [address] | | + + + + + | Katherine Daniel | ECON | [address] | | | | | [place] | | | | | [address] | | + + + + + | Katherine Daniel | ECON | [address] | | | | | [place] | | | | | [address] | | + + + + + Care Team Providers + +------+ + | Care Hair Tinter Name | Role | Phone | + +------+ + PCP | Unavailable | + +------+ + Encounter Details +--------+ + + + + | Date | Type | Department | Care Team | Description | +--------+ + + + + | 09/24/ | Hospital | [facility] | | | | 2010 - | Encounter | [facility] | | | | | [facility] [address] | | | | 09/25/ | | [place] | | | | 2010 | | [address] | | | | | | [phone] | | | +--------+ + + + [...] documented as of this encounter Progress Notes Silas German MD - 09/24/2010 1:45 AM PDTDATE: 09/24/2010 RADIATION ONCOLOGY FOLLOWUP NOTE DIAGNOSIS: 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 INTERVAL SINCE COMPLETION OF RADIATION THERAPY: 1 month INTERVAL HISTORY: This 70-year-old white male was diagnosed with squamous cell carcinoma of the base of the tongue with metastasis to the right cervical lymph nodes in 2000. He only had biops y of his metastatic cervical lymph node, which showed squamous cell carcinoma. He never had what we call "conv entional" anticancer treatment. He had different, unconventional treatment at [facility] in [facility], at [facility] in [place], and also at [facility] in [place]. He was seen here in 07/2010 with bleeding from a metastatic mass in his submental region. He only agreed to a short co urse of palliative radiation therapy. He received 3000 cGy in 10 fractions to the submental mass from 011 through 08/25/2010. Today he returns for followup. He states that the mass decreased in size considerably. Now he thinks it has started growi ng back a little. There is still a small amount of discharge but no bleeding. He has local pain, and he takes oxyc odone/APAP 5/325 one to two tablets q.6 to 8 hours p.r.n. PHYSICAL EXAMINATION VITAL SIGNS: Weight 178.9 pounds. Blood pressure 130/70. Pulse 74 per minute, regular. HEENT: There is no evidence of disease in the oral cavity or oropharynx. NECK: The submental mass measures about 5 x 5 cm, and it has central ulceration. There is no active bleeding or discharge at the present time. No palpable cervical or supraclavicular adenopathy is no kimber. IMPRESSION: I think the patient has had good palliation from the short course of radiatio n therapy. PLAN: The patient does not wish to follow any conventional treatment. He asked , if we co uld give him any more radiation therapy to this area in future. I told him, since he had a low radiation dose, saeed yan could be re-treated one more time with a similar dose fractionation schedule. He said he would give us a call if n ecessary. He did not want to set up a follow up appointment. DICTATED BY: Silas German MD Radiation Oncology JOB #: [id number] EXT JOB #:[id number] <Electronicall y Signed by Silas German MD> 09/24/10 1404 documented in this encounter Plan of Treatment [...] [place] | | | | | | [address] | | | | | | | | +--------+ + + + + documented as of this encounter Visit Diagnoses Not on filedocumented in this encounter
--- OUTSIDE RECORDS SUMMARY | ~2019-11-13 | XMS | Encounter Summary ---
Demographics + + + | Address | [address] | | | [place] [address] | + + + | Home Phone | | + + + | Preferred Language | Unknown | + + + | Marital Status | | + + + | Jain Affiliation | 1069 | + + + | Race | Unknown | + + + | Ethnic Group | Unknown | + + + Author + + + | Author | [facility] | | | and [place] | + + + | Organization | [facility] [...] [place] | | | | | [address] | | + + + + + | Katherine Daniel | ECON | [address] | | | | | [place] | | | | | [address] | | + + + + + | Katherine Daniel | ECON | [address] | | | | | [place] | | | | | [address] | | + + + + + Care Team Providers + +------+ + | Care Payment Analyst Name | Role | Phone | [...] + + | 07/25/ | Telephone | [facility] | Yasmin Bates, | Device Check | | 2020 | | CARDIOLOGY VANESSA | [address] | | | | | [address] | [place], [place] | | | | | [place], [place] | [address] | | | | | [address] | | | | | | [phone] | | | +--------+ + + + [...] [place] | | | | | | [address] | | | | | | | | +--------+ + + + + documented as of this encounter Visit Diagnoses Not on filedocumented in this encounter"
--- OUTSIDE RECORDS SUMMARY | ~2019-11-13 | XMS | Encounter Summary ---
Demographics + + + | Address | [address] | | | [place] [address] | + + + | Home Phone | | + + + | Preferred Language | Unknown | + + + | Marital Status | | + + + | Church Affiliation | EPI | + + + | Race | White | + + + | Ethnic Group | Not or | + + + Author + + + | Author | [facility] | + + + | Organization | [facility] | + + + | Address | Unknown | + + + | Phone | Unavailable | + + + Support + + +---------+ + | Name | Relationship | Address | Phone | + + +---------+ + | Katherine Daniel | ECON | Unknown | | + + +---------+ + Care Team Providers + +------+ + | Care Energy Assistant Name | Role | Phone | + [...] as of this encounter Progress Notes Interface, Farmer General In - 02/26/2006 1:00 AM PDTCLINIC DATE: [...] visit in 2 months. Edis Hatch M.D. Director Of Bands, Otolaryngology [facility] / [id number] / [id number] / [id number] / Tdocumented in this encounter Plan of Treatment Not on filedocumented as of this encounter Visit Diagnoses Not on filedocumented in this encounter"
--- OUTSIDE RECORDS SUMMARY | ~2019-11-13 | XMS | Encounter Summary ---
Demographics + + + | Address | [address] | | | [place] [address] | + + + | Home Phone | | + + + | Preferred Language | Unknown | + + + | Marital Status | | + + + | Confucianist Affiliation | EPI | + + + | Race | White | + + + | Ethnic Group | Not or | + + + Author + + + | Author | [facility] | + + + | Organization | [facility] | + + + | Address | Unknown | + + + | Phone | Unavailable | + + + Support + + +---------+ + | Name | Relationship | Address | Phone | + + +---------+ + | Katherine Daniel | ECON | Unknown | | + + +---------+ + Care Team Providers + +------+ + | Care Print Line Supervisor Name | Role | Phone | + +------+ + PCP | Unavailable | + +------+ + Encounter Details +--------+ + + + + | Date | Type | Department | Care Team | Description | +--------+ + + + + | 12/14/ | Results | Otolaryngology | Cabrera Olea MD | | | 2000 | Only | Head and Neck | | | | | | Surgery Services at | | | | | | [facility] [address] | | | | | | Physician's | | | | | | [address], [address] floor | | | | | | [place], [place] | | | | | | [address] | | | | | | [phone] | | | +--------+ + + + [...] + | SURGICAL PATHOLOGY | Routin | 12/30/2000 | | Results for this | | | e | | | procedure are in the | | | | | | results section. | + +--------+ + + + | CT NECK W CONTRAST | Routin | 12/14/2000 | | Results for this | | | e | 7:25 PM | | procedure are in the | | | | PDT | | results section. | + +--------+ + + + documented in this encounter Results SURGICAL PATHOLOGY (12/30/2000) + + + + + + | Component | Value | Ref Range | Performed | Pathologist | | | | | At | Signature | + + + + + + | SURGICAL | SOURCE OF SPECIMEN: | | [facility] | | | PATHOLOGY | Outside consultation | | DEPARTMENT | | | | Materials | | OF | | | | Received:Received from | | PATHOLOGY | | | | [facility] | | | | | | [facility] [place], | | | | | | [place], is | | | | | | onehematoxylin and eosin | | | | | | stained slide bearing | | | | | | accession number | | | | | | [id number] (skin, | | | | | | scalp). The | | | | | | corresponding pathology | | | | | | report is dated 12/07/00. 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 | | | | | | Tiesha, | | | | | | Beti/PathologistOne | | | | | | slide is returned with | | | | | | the reportT:01/03/01:re | | | | | | The diagnosis is based | | | | | | on gross and microscopic | | | | | | examinations. It was | | | | | | madeby the attending | | | | | | pathologist after review | | | | | | of all microscopic | | | | | | slides. Clinical | | | | | | History:None provided. | | | | | | Per outside report: Rule | | | | | | out basal cell | | | | | | carcinoma. Reasonfor | | | | | | consultation: Please | | | | | | compare.Rendering | | | | | | Diagnostician: Andrea | | | | | | Tiesha | | | | | | BetiPathologistElectroni | | | | | | ronda Signed | | | | | | 01/03/2001Comment: | | | | | | SOURCE OF SPECIMEN: | | | | | | Outside consultation | | | | + + + + + + + + | Specimen | + + | | + + + + + + + | Performing | Address | City/State/Zipcode | Phone Number | | Organization | | | | + + + + + | [facility] | [address] | [place] [address] | | | PATHOLOGY | [address] | | | + + + + + | [facility] | [address] | [place] [address] | | | PATHOLOGY | [address] | | | + + + + + CT NECK W CONTRAST (12/14/2000 7:25 PM PDT) + + + + + + | Component | Value | Ref Range | Performed | Pathologist | | | | | At | Signature | + + + + + + | CT NECK W | Radiologist 1: TOMMIE, | | | | | CONTRAST | KAYE Adam M.D.COMPUTED | | | | | | TOMOGRAPHY SCAN OF THE | | | | | | NECK: 12/14/2000 | | | | | | Dictated 12/15/2000 | | | | | | CLINICAL INFORMATION: | | | | | | Squamous cell | | | | | | carcinoma, unknown | | | | | | primary. TECHNIQUE: | | | | | | Axial images were | | | | | | obtained through the | | | | | | neck withintravenous | | | | | | administration of 145 cc | | | | | | iodinated contrast. | | | | | | COMPARISON: No prior | | | | | | studies are available | | | | | | for comparison. | | | | | | FINDINGS: There is | | | | | | abnormal fullness in the | | | | | | base of the | | | | | | righttonsillar pillar | | | | | | crossing the | | | | | | glossopharyngeal sulcus | | | | | | into theposterior aspect | | | | | | of the right base of | | | | | | the tongue. There is | | | | | | anenlarged right | | | | | | level-II lymph node or | | | | | | matted lymph nodes. | | | | | | There is | | | | | | noretropharyngeal or | | | | | | paratracheal | | | | | | lymphadenopathy. The | | | | | | patient is status post | | | | | | prior sinus surgery, | | | | | | probably | | | | | | functionalendoscopic | | | | | | sinus surgery including | | | | | | uncinectomy, | | | | | | internalethmoidectomy, | | | | | | and at least right | | | | | | sphenoid osteotomy. A | | | | | | small defectin the | | | | | | anterolateral wall of | | | | | | the left middle cranial | | | | | | fossa containslow | | | | | | attenuation material on | | | | | | the intracranial surface | | | | | | and likelyrepresents an | | | | | | arachnoid granulation. | | | | | | There are degenerative | | | | | | changesin the cervical | | | | | | spine, most pronounced | | | | | | at C5-6 and C6-7. | | | | | | Incidental note is made | | | | | | on the recreation worker view of | | | | | | median sternotomy wires. 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 END | | | | | | OF IMPRESSION: | | | | + + + + + + + + | Specimen | + + | | + + + +---------+ + + | Performing | Address | City/State/[facility] | Phone Number | | Organization | | | | + +---------+ + + | [facility] OF | | | | | RADIOLOGY | | | | + +---------+ + + documented in this encounter Visit Diagnoses Not on filedocumented in this encounter"
--- OUTSIDE RECORDS SUMMARY | ~2019-11-13 | XMS | Clinical Summary ---
Demographics + + + | Address | [address] | | | [place] [address] | + + + | Home Phone | | + + + | Preferred Language | Unknown | + + + | Marital Status | | + + + | Zoroastrian Affiliation | EPI | + + + [...] Team Providers + +------+ + | Care Salesperson [employer] Name | Role | Phone | + +------+ + | Sander Murphy MD | PCP | | + +------+ + Source Comments YASSINE is fully live on both [facility] Ambulatory and [facility] InPatient.[facility] Allergies Not on File Medications Not [...] | | | | | | | [address] | | + +--------+ +--------+ + +--------+ | [employer] [place] | MUTUAL | [id number] | Effect | [phone] | [address] | Indemn | | MEDICARE [address] | OF | | vandana | 0 | [employer] | ity | | | [place] | | for | | [place] [address] | | | | MEDICA | | all | | [place] | | | | RE | | dates | | [address] | | | | SUPPL | | [...] | 1940 | [phone] | [place] [address] | | | sid | | | [address] (Home) | | + +--------+ +--------+ + +"
--- OUTSIDE RECORDS SUMMARY | ~2019-11-13 | XMS | Encounter Summary ---
Demographics + + + | Address | [address] | | | [place] [address] | + + + | Home Phone [...] Author + + + | Author | [facility] | + + + | Organization | [facility] | + + + | Address | Unknown | + + + | Phone | Unavailable | + + + Support + + +---------+ + | Name | Relationship | Address | Phone | + + +---------+ + | Katherine Daniel | ECON | Unknown | | + + +---------+ + Care Team Providers + +------+ + | Care Electrolog Operator Name | Role | Phone | [...] | | | | | [place], | | | | | | [place] [address] | | | +--------+ + + + [...]
--- OUTSIDE RECORDS SUMMARY | ~2019-11-13 | XMS | Encounter Summary ---
Demographics + + + | Address | [address] | | | [place] [address] | + + + | Home Phone [...] | Author | [facility] | | | and [place] | + + + | Organization | [facility] | [...] [place] | | | | | [address] | | + + + + + | Katherine Daniel | ECON | [address] | | | | | [place] | | | | | [address] | | + + + + + | Katherine Daniel | ECON | [address] | | | | | [place] | | | | | [address] | | + + + + + Care Team Providers + +------+ + | Care Early Interventionist Name | Role | Phone | + +------+ + | Tracie Cm MD | PCP | | + +------+ + Reason for Visit Evaluate & Treat (Routine) +--------+ + + + + + | Status | Reason | Specialty | Diagnoses / | Referred By | Referred To | | | | | Procedures | Contact | Contact | +--------+ + + + + + | Closed | Specialty | Oncology | Diagnoses | Soila, | Nadine, | | | Services | | macrocytic | Tracie Keating | Cabrera | | | Required | | corona | [address] | MD Rodger | | | | | Procedures | FATUMA [place] | [address] | | | | | [place] OFFICE | [place] | | | | | OUTPATIENT | [place] | [place] | | | | | VISIT [address] | [address] | [address] Phone: | | | | | MINUTES | Phone: | [phone] | | | | | | [phone] | Fax: | | | | | | Fax: | [phone] | | | | | | [phone] | | +--------+ + + + + + Encounter Details +--------+ + + + + | Date | Type | Department | Care Team | Description | +--------+ + + + + | 04/18/ | [facility] | [facility] | Cabrera Mccoy | Macrocytic anemia | | 2018 | Encounter | [facility] | MD Rodger [address] | (Primary Dx) | | | | [facility] [address] | | | | | [address] | [place] [address] | | | | | [place] [address] | [phone] | | | | | [phone] | | | +--------+ + + + [...] + | Blood Pressure | 127/60 | 04/18/2018 2:50 PM | | | | | PDT | | + + + + + | Pulse | 72 | 04/18/2018 2:50 PM | | | [...] + | Oxygen Saturation | 97% | 04/18/2018 2:50 PM | | | | | PDT | | + + + + + | Inhaled Oxygen | - | - | | | Concentration | | | | + + + + + | Weight | - | - | | + + + + + | Height | 181 cm (5' 11.26") | 04/18/2018 2:50 PM | | | | | PDT | | + + + + + | Body Mass Index | - | - | | + + + + + documented in this encounter Medications at Time of Discharge + + + +---------+ + + | Medication | Sig | Dispensed | Refills | Start | End Date | | | | | | Date | | + + + +---------+ + + | | Take 1 tablet by | | 0 | | | | HYDROcodone-acetamin | mouth every 6 hours | | | | | | ophen (NORCO) | as needed for Pain. | | | | | | 7.5-325 mg per | | | | | | | tablet | | | | | | + + + +---------+ + + | ibuprofen | Take 600 mg by mouth | | 0 | | | | (ADVIL,MOTRIN) 600 | every 6 hours as | | | | | | MG tablet | needed for Pain. | | | | | + + + +---------+ + + | insulin glargine | Inject 18 Units | | 0 | | | | (LANTUS) 100 | under the skin. | | | | | | units/mL injection | | | | | | | (vial) | | | | | | + + + +---------+ + + | nitroglycerin | Place 0.4 mg under | | 0 | | | | (NITROSTAT) 0.4 mg | the tongue every 5 | | | | | | SL tablet | minutes as needed | | | | | | | for Chest pain. | | | | | + + + +---------+ + + | traZODone | Take 150 mg by mouth | | 0 | | | | (DESYREL) 150 MG | nightly. | | | | | | tablet | | | | | | + + + +---------+ + + | VENLAFAXINE HCL PO | Take 150 mg by mouth | | 0 | | | | | Daily. | | | | | + + + +---------+ + + | amLODIPine | amlodipine besylate | | 0 | | | | (NORVASC) 5 mg | 5 mg tabs | | | | 9 | | tablet (ED prepack) | | | | | | + + + +---------+ + + | amLODIPine | Take 5 mg by mouth. | | 0 | 11/03/19 | | | (NORVASC) 5 mg | | | | 18 | 0 | | tablet | | | | | | + + + +---------+ + + | ASPIRIN PO | Take by mouth. | | 0 | | | | | | | | | 9 | + + + +---------+ + + | carvedilol (COREG) | Take 50 mg by mouth | | 0 | 10/28/19 | | | 25 mg tablet | 2 times daily (with | | | 18 | 0 | | | breakfast & dinner). | | | | | + + + +---------+ + + | gabapentin | Take 100 mg by mouth | | 0 | | | | (NEURONTIN) 100 mg | 3 times daily. | | | | 9 | | capsule | | | | | | + + + +---------+ + + | insulin lispro | humalog 100 unit/ml | | 0 | | | | (HUMALOG) 100 | soln | | | | 9 | | units/mL injection | | | | | | | (vial) | | | | | | + + + +---------+ + + | lisinopril | Take 20 mg by mouth. | | 0 | 11/03/19 | | | (PRINIVIL, ZESTRIL) | | | | 18 | 9 | | 20 mg tablet | | | | | | + + + +---------+ + + | lubiprostone | Take 24 mcg by mouth | | 0 | | | | (AMITIZA) 24 mcg | 2 times daily (with | | | | 9 | | capsule | breakfast & | | | | | | | dinner). | | | | | + + + +---------+ + + | spironolactone | spironolactone 25 mg | | 0 | | | | (ALDACTONE) 25 mg | tabs | | | | 9 | | tablet (ED prepack) | | | | | | + + + +---------+ + + documented as of this encounter Progress Notes Alicia Ross, TRAFFIC INCIDENT MANAGEMENT MANAGER - 04/18/2018 2:53 PM PDTREVIEW OF SYSTEMS Constitutional: States fatigue. Denies high fevers, shaking chills or anorexia. Appetite without changes. 3-4 months of taking subutex, was nauseated and vomiting. Stopped taking s ubutex in january which now has no nausea and no vomiting. Weight loss of approximately 20 lbs over the last 3-4 month, however he states he has gained most of this back. Increased ni ght sweats over the last year. States he sleeps with a heating blanked at times, and at time s blood sugar has to do with it. Ear, Nose, Mouth, Throat: Denies odynophagia, dysphagia, or tinnitus. Cardiovascular: States shortness of breath, dyspnea on exertion. Denies chest pain, palpit ations or orthopnea. Respiratory: Denies cough, hemoptysis, or sputum production. Gastrointestinal: Denies diarrhea, melena, or bright red blood per rectum. States having c onstipation related to taking hydrocodone, manages it with the uses of senna, prunes, smooth move and coffee enemas. Abdominal pain related to constipation occasions. Genitourinary: Denies hematuria or dysuria. Musculoskeletal: Chronic back pain and generalized aches and pains in joints. Neurologic: Denies visual changes, or numbness/tingling of the extremities. Low grade head aches-frequently. Endocrine: Denies peripheral edema or heat/cold intolerance. Bilateral edema in ankles/feet . Hematologic: Denies spontaneous bruising or bleeding. Skin is thin and bleeds easily. Integumentary: Denies rash, wounds or other skin concerns. Pain: Lower back pain with pain medication 01/04, with out pain medication 04/06 Pain Right side of neck which radiates the ear, per pt this is left over from rxtx. Note: Pt is here referred by. Dr. Cm for macrocytic anemia. Pt is here for consultation with Dr. Mccoy. hx: [employer] Exposure to chemicals: Lopez, yes extensive. My chart: Declined documented in this encounter Plan of Treatment [...] | | | | | | [facility] [place] | | | | | | [address] | | | | | | | | +--------+ + + + + + +------+--------+ + + | Name | Type | Priori | Associated Diagnoses | Order Schedule | | | | ty | | | + +------+--------+ + + | CBC w/ Auto | Lab | STAT | Macrocytic anemia | 52 Occurrences | | Differential | | | | starting 04/18/2018 | | | | | | until 04/18/2019, 1 | | | | | | completed | + +------+--------+ + + | Comprehensive | Lab | STAT | Macrocytic anemia | 52 Occurrences | | Metabolic Panel | | | | starting 04/18/2018 | | | | | | until 04/18/2019, 1 | | | | | | completed | + +------+--------+ + + | Lactate | Lab | STAT | Macrocytic anemia | 52 Occurrences | | Dehydrogenase | | | | starting 04/18/2018 | | | | | | until 04/18/2019, 1 | | | | | | completed | + +------+--------+ + + | Protein | Lab | Routin | Macrocytic anemia | 1 Occurrences | | Electrophoresis, | | e | | starting 04/18/2018 | | Urine, 24Hr | | | | until 04/19/2019 | + +------+--------+ + + documented as of this encounter Procedures + +--------+ + + + | Procedure Name | Priori | Date/Time | Associated Diagnosis | Comments | | | ty | | | | + +--------+ + + + | VITAMIN B-12 | Routin | 04/18/2018 | Macrocytic anemia | Results for this | | | e | 3:42 PM | | procedure are in the | | | | PDT | | results section. | + +--------+ + + + | CBC W/AUTO | STAT | 04/18/2018 | Macrocytic anemia | Results for this | | DIFFERENTIAL | | 3:42 PM | | procedure are in the | | | | PDT | | results section. | + +--------+ + + + | RETIC COUNT | Routin | 04/18/2018 | Macrocytic anemia | Results for this | | | e | 3:42 PM | | procedure are in the | | | | PDT | | results section. | + +--------+ + + + | LACTATE | STAT | 04/18/2018 | Macrocytic anemia | Results for this | | DEHYDROGENASE | | 3:42 PM | | procedure are in the | | | | PDT | | results section. | + +--------+ + + + | FOLATE | Routin | 04/18/2018 | Macrocytic anemia | Results for this | | | e | 3:42 PM | | procedure are in the | | | | PDT | | results section. | + +--------+ + + + | COMPREHENSIVE | STAT | 04/18/2018 | Macrocytic anemia | Results for this | | METABOLIC PANEL | | 3:42 PM | | procedure are in the | | | | PDT | | results section. | + +--------+ + + + | LABS - EXTERNAL SCAN | | 2018 | | Results for this | | | | 12:00 AM | | procedure are in the | | | | PDT | | results section. | + +--------+ + + + | LABS - EXTERNAL SCAN | | 03/01/2018 | | Results for this | | | | 12:00 AM | | procedure are in the | | | | PDT | | results section. | + +--------+ + + + documented in this encounter Results Retic Count (04/18/2018 3:42 PM PDT) + + + + + + | Component | Value | Ref Range | Performed | Pathologist | | | | | At | Signature | + + + + + + | % | 1.8 (H) | 0.5 - 1.5 % | [facility] | | | Reticulocyt | | | [facility] | | | e Count | | | MEDICAL | | | | | | CENTER - | | | | | | LABORATORY | | + + + + + + | Absolute | 0.0594 | 0.0260 - 0.0950 | [facility] | | | Reticulocyt | | M/uL | [facility] | | | e Count | | | MEDICAL | | | | | | CENTER - | | | | | | LABORATORY | | + + + + + + | Immature | 10.70 | 2.30 - 15.90 % | [facility] | | | Reticulocyt | | | [facility] | | | e Fraction | | | MEDICAL | | | | | | CENTER - | | | | | | LABORATORY | | + + + + + + | Reticulocyt | 39.2 (H) | 29 - 38 pg | [facility] | | | e | | | [facility] | | | Hemoglobin | | | MEDICAL | | | Content | | | CENTER - | | | | | | LABORATORY | | + + + + + + + + | Specimen | + + | Blood | + + + + + + + | Performing | Address | City/State/Zipcode | Phone Number | | Organization | | | | + + + + + | [facility] | [address] | [place] | [phone] | | [facility] | | [address] | | | - LABORATORY | | | | + + + + + Folate (04/18/2018 3:42 PM PDT) + +-------+ + + + | Component | Value | Ref Range | Performed | Pathologist | | | | | At | Signature | + +-------+ + + + | FOLATE | 16.9 | >5.8 ng/mL | [facility] | | | | | | [facility] | | | | | | MEDICAL | | | | | | CENTER - | | | | | | LABORATORY | | + +-------+ + + + + + | Specimen | + + | Blood | + + + + + + + | Performing | Address | City/State/Zipcode | Phone Number | | Organization | | | | + + + + + | [facility] | [address] | [place], [place] | [phone] | | [facility] | | [address] | | | - LABORATORY | | | | + + + + + Vitamin B-12 (04/18/2018 3:42 PM PDT) + + + + + + | Component | Value | Ref Range | Performed | Pathologist | | | | | At | Signature | + + + + + + | VITAMIN | 469Comment: DEFICIENT: | 180 - 914 pg/mL | [facility] | | | B-12 | <145 | | [facility] | | | | pg/mLINDETERMINATE: | | MEDICAL | | | | 145-180 pg/mL | | CENTER - | | | | | | LABORATORY | | + + + + + + + + | Specimen | + + | Blood | + + + + + + + | Performing | Address | City/State/Zipcode | Phone Number | | Organization | | | | + + + + + | [facility] | [address] | [place] | [phone] | | [facility] | | [address] | | | - LABORATORY | | | | + + + + + Lactate Dehydrogenase (04/18/2018 3:42 PM PDT) + +---------+ + + + | Component | Value | Ref Range | Performed | Pathologist | | | | | At | Signature | + +---------+ + + + | LDH TOTAL | 268 (H) | 91 - 180 U/L | [facility] | | | | | | [facility] | | | | | | MEDICAL | | | | | | CENTER - | | | | | | LABORATORY | | + +---------+ + + + + + | Specimen | + + | Blood | + + + + + + + | Performing | Address | City/State/Zipcode | Phone Number | | Organization | | | | + + + + + | [facility] | [address] | [place] | [phone] | | [facility] | | [address] | | | - LABORATORY | | | | + + + + + Comprehensive Metabolic Panel (04/18/2018 3:42 PM PDT) + + + + + + | Component | Value | Ref Range | Performed | Pathologist | | | | | At | Signature | + + + + + + | Na | 135 (L) | 136 - 149 | [facility] | | | | | mmol/L | [facility] | | | | | | MEDICAL | | | | | | CENTER - | | | | | | LABORATORY | | + + + + + + | K | 3.9 | 3.5 - 5.1 | [facility] | | | | | mmol/L | [facility] | | | | | | MEDICAL | | | | | | CENTER - | | | | | | LABORATORY | | + + + + + + | Cl | 99 | 98 - 109 mmol/L | [facility] | | | | | | [facility] | | | | | | MEDICAL | | | | | | CENTER - | | | | | | LABORATORY | | + + + + + + | CO2 | 25 | 24 - 31 mmol/L | [facility] | | | | | | [facility] | | | | | | MEDICAL | | | | | | CENTER - | | | | | | LABORATORY | | + + + + + + | Anion Gap | 11 | 3 - 16 mmol/L | [facility] | | | | | | [facility] | | | | | | MEDICAL | | | | | | CENTER - | | | | | | LABORATORY | | + + + + + + | Glucose | 275 (H) | 70 - 109 mg/dL | [facility] | | | | | | [facility] | | | | | | MEDICAL | | | | | | CENTER - | | | | | | LABORATORY | | + + + + + + | BUN | 16 | 7 - 18 mg/dL | [facility] | | | | | | [facility] | | | | | | MEDICAL | | | | | | CENTER - | | | | | | LABORATORY | | + + + + + + | Creatinine | 0.96 | 0.60 - 1.30 | [facility] | | | | | mg/dL | [facility] | | | | | | MEDICAL | | | | | | CENTER - | | | | | | LABORATORY | | + + + + + + | eGFR if not | >60Comment: GLOMERULAR | >=60 | [facility] | | | | FILTRATION | mL/min/1.73m2 | [facility] | | | [place] | RATE,ESTIMATED | | MEDICAL | | | | mL/min/1.34a0Wurb than | | CENTER - | | | | 60 Chronic kidney | | LABORATORY | | | | disease,if found over a | | | | | | 3-month period.Less than | | | | | | 15 Kidney failureFor | | | | | | | | | | | | Americans,multiply the | | | | | | calculated GFR by 1.21. | | | | | | | | | | + + + + + + | Calcium | 8.7 | 8.3 - 10.5 | [facility] | | | | | mg/dL | [facility] | | | | | | MEDICAL | | | | | | CENTER - | | | | | | LABORATORY | | + + + + + + | Albumin | 4.0 | 3.2 - 5.0 g/dL | [facility] | | | | | | [facility] | | | | | | MEDICAL | | | | | | CENTER - | | | | | | LABORATORY | | + + + + + + | Bilirubin | 1.8 (H)Comment: This is | 0.1 - 1.5 mg/dL | [facility] | | | Total | an appended report. | | [facility] | | | | These results have been | | MEDICAL | | | | appended to a previously | | CENTER - | | | | preliminary verified | | LABORATORY | | | | report. | | | | + + + + + + | Total | 6.1 | 6.0 - 7.8 g/dL | [facility] | | | Protein | | | [facility] | | | | | | MEDICAL | | | | | | CENTER - | | | | | | LABORATORY | | + + + + + + | AST | 30Comment: This is an | 10 - 42 U/L | [facility] | | | | appended report. These | | [facility] | | | | results have been | | MEDICAL | | | | appended to a previously | | CENTER - | | | | preliminary verified | | LABORATORY | | | | report. | | | | + + + + + + | ALT | 22Comment: This is an | 6 - 45 U/L | [facility] | | | | appended report. These | | [facility] | | | | results have been | | MEDICAL | | | | appended to a previously | | CENTER - | | | | preliminary verified | | LABORATORY | | | | report. | | | | + + + + + + | Alkaline | 187 (H)Comment: This is | 40 - 110 U/L | [facility] | | | Phosphatase | an appended report. | | [facility] | | | | These results have been | | MEDICAL | | | | appended to a previously | | CENTER - | | | | preliminary verified | | LABORATORY | | | | report. | | | | + + + + + + | Globulin | 2.1 | 2.1 - 3.8 g/dL | [facility] | | | | | | [facility] | | | | | | MEDICAL | | | | | | CENTER - | | | | | | LABORATORY | | + + + + + + | Albumin/Alyce | 1.9 | 0.8 - 2.0 | [facility] | | | bulin Ratio | | | [facility] | | | | | | MEDICAL | | | | | | CENTER - | | | | | | LABORATORY | | + + + + + + | BUN/Creatin | 16.7 | | [facility] | | | ine Ratio | | | [facility] | | | | | | MEDICAL | | | | | | CENTER - | | | | | | LABORATORY | | + + + + + + + + | Specimen | + + | Blood | + + + + + + + | Performing | Address | City/State/Zipcode | Phone Number | | Organization | | | | + + + + + | [facility] | [address] | [place] | [phone] | | [facility] | | [address] | | | - LABORATORY | | | | + + + + + CBC w/ Auto Differential (04/18/2018 3:42 PM PDT) + + + + + + | Component | Value | Ref Range | Performed | Pathologist | | | | | At | Signature | + + + + + + | WBC | 7.0 | 4.0 - 11.0 K/uL | [facility] | | | | | | [facility] | | | | | | MEDICAL | | | | | | CENTER - | | | | | | LABORATORY | | + + + + + + | RBC | 3.32 (L) | 4.30 - 5.70 | [facility] | | | | | M/uL | [facility] | | | | | | MEDICAL | | | | | | CENTER - | | | | | | LABORATORY | | + + + + + + | Hemoglobin | 11.4 (L) | 13.5 - 18.0 | [facility] | | | | | g/dL | [facility] | | | | | | MEDICAL | | | | | | CENTER - | | | | | | LABORATORY | | + + + + + + | Hematocrit | 33.8 (L) | 40.0 - 51.0 % | [facility] | | | | | | [facility] | | | | | | MEDICAL | | | | | | CENTER - | | | | | | LABORATORY | | + + + + + + | MCV | 101.8 (H) | 83.0 - 101.0 fL | [facility] | | | | | | [facility] | | | | | | MEDICAL | | | | | | CENTER - | | | | | | LABORATORY | | + + + + + + | MCH | 34.3 | 28.0 - 35.0 pg | [facility] [...] + + + + | RDW-CV | 15.3 (H) | <15.0 % | [facility] | | | | | | [facility] | | | | | | MEDICAL | | | | | | CENTER - | | | | | | LABORATORY | | + + + + + + | RDW-SD | 56.9 (H) | 35.1 - 46.3 fL | [facility] | | | | | | [facility] | | | | | | MEDICAL | | | | | | CENTER - | | | | | | LABORATORY | | + + + + + + | Platelet | 132 (L) | 140 - 440 K/uL | [facility] | | | Count | | | [facility] | | | | | | MEDICAL | | | | | | CENTER - | | | | | | LABORATORY | | + + + + + + | MPV | 9.5 | 6.5 - 12.4 fL | [facility] | | | | | | [facility] | | | | | | MEDICAL | | | | | | CENTER - | | | | | | LABORATORY | | + + + + + + | % | 73.5 | 45.0 - 82.0 % | [facility] | | | Neutrophils | | | [facility] | | | | | | MEDICAL | | | | | | CENTER - | | | | | | LABORATORY | | + + + + + + | % | 13.0 (L) | 20.0 - 45.0 % | [facility] | | | Lymphocytes | | | [facility] | | | | | | MEDICAL | | | | | | CENTER - | | | | | | LABORATORY | | + + + + + + | % Monocytes | 11.4 | 4.0 - 12.0 % | [facility] | | | | | | [facility] | | | | | | MEDICAL | | | | | | CENTER - | | | | | | LABORATORY | | + + + + + + | % | 1.1 | 0.0 - 5.0 % | [facility] | | | Eosinophils | | | [facility] | | | | | | MEDICAL | | | | | | CENTER - | | | | | | LABORATORY | | + + + + + + | % Basophils | 0.6 | 0.0 - 1.0 % | [facility] | | | | | | [facility] | | | | | | MEDICAL | | | | | | CENTER - | | | | | | LABORATORY | | + + + + + + | % Immature | 0.4 | 0.0 - 0.4 % | [facility] | | | Granulocyte | | | [facility] | | | s | | | MEDICAL | | | | | | CENTER - | | | | | | LABORATORY | | + + + + + + | Absolute | 5.13 | 1.80 - 8.50 | [facility] | | | Neutrophils | | K/uL | [facility] | | | | | | MEDICAL | | | | | | CENTER - | | | | | | LABORATORY | | + + + + + + | Absolute | 0.91 | 0.60 - 3.20 | [facility] | | | Lymphocytes | | K/uL | [facility] | | | | | | MEDICAL | | | | | | CENTER - | | | | | | LABORATORY | | + + + + + + | Absolute | 0.80 | 0.00 - 1.00 | [facility] | | | Monocytes | | K/uL | [facility] | | | | | | MEDICAL | | | | | | CENTER - | | | | | | LABORATORY | | + + + + + + | Absolute | 0.08 | 0.00 - 0.40 | [facility] | | | Eosinophils | | K/uL | [facility] | | | | | | MEDICAL | | | | | | CENTER - | | | | | | LABORATORY | | + + + + + + | Absolute | 0.04 | 0.00 - 0.10 | [facility] | | | Basophils | | K/uL | [facility] | | | | | | MEDICAL | | | | | | CENTER - | | | | | | LABORATORY | | + + + + + + | Absolute | 0.03 | 0.00 - 0.03 | [facility] | | | Immature | | K/uL | [facility] | | | Granulocyte | | | MEDICAL | | | s | | | CENTER - | | | | | | LABORATORY | | + + + + + + | % nRBC | 0 | 0 - 2 per 100 | [facility] | | | | | WBC's | [facility] | | | | | | MEDICAL | | | | | | CENTER - | | | | | | LABORATORY | | + + + + + + | Absolute | 0.00 | 0.00 - 0.01 | [facility] | | | nRBC | | K/uL | [facility] | | | | | | MEDICAL | | | | | | CENTER - | | | | | | LABORATORY | | + + + + + + + + | Specimen | + + | Blood | + + + + + + + | Performing | Address | City/State/Zipcode | Phone Number | | Organization | | | | + + + + + | [facility] | [address] | [place] | [phone] | | [facility] | | [address] | | | - LABORATORY | | | | + + + + + LABS - EXTERNAL SCAN (2018 12:00 AM PDT) + + + | Narrative | Performed At | + + + | Ordered by an | | | unspecified provider. | | + + + LABS - EXTERNAL SCAN (03/01/2018 12:00 AM PDT) + + + | Narrative | Performed At | + + + | Ordered by an | | | unspecified provider. | | + + + documented in this encounter Visit Diagnoses + + | Diagnosis | + + | Macrocytic anemia - Primary Unspecified deficiency anemia | + + documented in this encounter
--- OUTSIDE RECORDS SUMMARY | ~2019-11-13 | XMS | Encounter Summary ---
Demographics + + + | Address | [address] | | | [place] [address] | + + + | Home Phone | | + + + | Preferred Language | Unknown | + + + | Marital Status | | + + + | Pentecostalism Affiliation | 1069 | + + + | Race | Unknown | + + + | Ethnic Group | Unknown | + + + Author + + + | Author | [facility] | | | and [place] | + + + | Organization | [facility] | | | and [place] | + + + | Address | Unknown | + + + | Phone | Unavailable | + + + Support + + + + + | Name | Relationship | Address | Phone | + + + + + | Daniel Daniel | ECON | [place] | | | | | [address] | | + + + + + | Katherine Daniel | ECON | [address] | | | | | [place] | | | | | [address] | | + + + + + | Katherine Dnaiel | ECON | [address] | | | | | [place] | | | | | [address] | | + + + + + Care Team Providers + +------+ + | Care Private Branch Exchange Installer Name | Role | Phone | [...] Unknown | ([facility]) | | | | [place], [place] | [phone] | | | | | [address] | | | | | | [phone] | | | +--------+ + + + [...] | | | | | [place] | | | | | | [address] | | | | | | | | +--------+ + + + + documented as of this encounter Visit Diagnoses + + | Diagnosis | + + | Secondary and unspecified malignant neoplasm of lymph nodes of head, face, and neck | + + documented in this encounter"
--- OUTSIDE RECORDS SUMMARY | ~2019-11-13 | XMS | Encounter Summary ---
Demographics + + + | Address | [address] | | | [place] [address] | + + + | Home Phone | | + + + | Preferred Language | Unknown | + + + | Marital Status | | + + + | Catholic Affiliation | EPI | + + [...] Team Providers + +------+ + | Care Chassis Wirer Name | Role | Phone | + [...] as of this encounter Progress Notes Interface, Command Post Craftsman In - 02/13/2006 1:11 AM PDTCLINIC DATE: [...] visit in 2 months. Edis Hatch M.D. R D Engineer of Otolaryngology [facility] / HS [id number] / [id number] / [id number] / Tdocumented in this encounter Plan of Treatment Not on filedocumented as of this encounter Visit Diagnoses Not on filedocumented in this encounter"
--- OUTSIDE RECORDS SUMMARY | ~2019-11-13 | XMS | Encounter Summary ---
Demographics + + + | Address | [address] | | | [place] [address] | + + + | Home Phone | | + + + | Preferred Language | Unknown | + + + | Marital Status | | + + + | Buddhist Affiliation | 1069 | + + + | Race | Unknown | + + + | Ethnic Group | Unknown | + + + Author + + + | Author | [facility] | | | and [place] | + + + | Organization | [facility] | [...] [place] | | | | | [address] | | + + + + + | Katherine Daniel | ECON | [address] | | | | | [place] | | | | | [address] | | + + + + + | Katherine Daniel | ECON | [address] | | | | | [place] | | | | | [address] | | + + + + + Care Team Providers + +------+ + | Care Tabulating Machine Mechanic Name | Role | Phone | [...] + + | 05/17/ | Office | [facility] | Yasmin Orellana, | Chronic diastolic | | 2019 | Visit | CARDIOLOGY CHARAN | MD Aamir YOON | congestive heart | | | | [address] | [place], [place] | failure (HCC) | | | | [place] [address] | [phone] | (Primary Dx); | | | | [place] | | Coronary artery | | | | [address] | | disease of bypass | | | | [phone] | | graft of chevak | | | | | | heart [...] 2018. Previously HPI. Recently evaluated in ER, [place] due to increased weight, lower ext edema. [...] Has been following up with Cardiology in [facility] for aortic valve stenosis. 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
--- OUTSIDE RECORDS SUMMARY | ~2019-11-13 | XMS | Encounter Summary ---
Demographics + + + | Address | [address] | | | [place] [address] | + + + | Home Phone | | + + + | Preferred Language | Unknown | + + + | Marital Status | | + + + | Nondenominational Affiliation | 1069 | + + + | Race | Unknown | + + + | Ethnic Group | Unknown | + + + Author + + + | Author | [facility] | | | and [place] | + + + | Organization | [facility] | | | and [place] | + + + | Address | Unknown | + + + | Phone | Unavailable | + + + Support + + + + + | Name | Relationship | Address | Phone | + + + + + | Daniel Daniel | ECON | [place] | | | | | [address] | | + + + + + | Katherine Daniel | ECON | [address] | | | | | [place] | | | | | [address] | | + + + + + | Katherine Daniel | ECON | [address] | | | | | [place] | | | | | [address] | | + + + + + Care Team Providers + +------+ + | Care Industrial Garage Servicer Name | Role | Phone | + +------+ + PCP | Unavailable | + +------+ + Encounter Details +--------+ + + + + | Date | Type | Department | Care Team | Description | +--------+ + + + + | 01/20/ | Hospital | [facility] | | | | 2010 - | Encounter | [facility] | | | | | | CENTER [address] | | | | 01/25/ | | [place] | | | | 2010 | | [address] | | | | | | [phone] | | | +--------+ + + + [...] is a 70 year old man from [facility] on with recurrent squamous cell carcinoma of [...] origin. 3. Initial management was at the [facility] in [place] (also known as the [facility] in [place], [place]). Treatments included intravenous high-dose vitamin C. 4. On June 06, 2002, he developed recurrent palpable lymphadenopathy in the left side of the neck that was biopsied and confirmed recurrence of squamous cell carcinoma. 5. Between 17 08 and 2003, he received intravenous chemotherapy at the [facility] in [place], [place], including insulin potentiation therapy. 6. He traveled to the [facility] where he received additional insulin potentiation therapy and intralesional injection of chemotherapy between 2003 and 2004. 7. He then cross ed over to naturopathic treatment following the Oliver regimen. 8. In December 2007, he develo ped progressive submental lymphadenopathy that was confirmed to be malignant by CT PET scan February 23, 2009. 9. On March 21, 2009, he began therapy the [facility] with sodium phenylbutyrat e, Rapamune, and oral Xeloda chemotherapy. He continued on the treatment plan with vari ous doses and schedules with stable submental lymphadenopathy until September 25, 2009. 10. He cros sed over to Vectibix chemotherapy September 25, 2009 through January 29, 2010. Repeat CT scan on February 07, 2010 at [facility] in [place], [place] demonstrated progres susannah of disease with [...] a consultation with Dr. Lennon at the [facility] in [place], [place], who recommended palliative radiation therapy. He [...] to see Dr. Silas German at the [facility] in [place], [place], who noted significant decrease in the size of the submental mass. He continued on a lternative medical regimens until January 01, 2011 when he returned to the [facility] in [place], [place] and was evaluated by Dr. Bryant [...] of 30%. 3. Hypertension. 4. Hypercholesterolemia. 5. Ppx-uckrjyq-qbclisrzn diabetes. PAST SURGICAL HISTORY: 1. Coronary artery bypass graft in 1988. 2. Neck dissection at [facility] in 2000. 3. 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 He is to Katherine, who comes to [...] reviewed the possible risks and outcomes of wire machine operator al beam radiation to the head and [...] Bryant Navas MD Radiation Oncology JOB #: [id number] EXT JOB #:[id number] EDITED: 01/14/2011 12:26 <Electronically Signed by Bryant [...] Bryant Navas MD Radiation Oncology JOB #: [id number] EXT JOB #:[id number] EDITED: 01/02/2011 05:42 <Electronically Signed by Bryant [...] [place] | | | | | | [address] | | | | | | | | +--------+ + + + + documented as of this encounter Visit Diagnoses Not on filedocumented in this encounter
--- OUTSIDE RECORDS SUMMARY | ~2019-11-13 | XMS | Encounter Summary ---
Demographics + + + | Address | [address] | | | [place] [address] | + + + | Home Phone | | + + + | Preferred Language | Unknown | + + + | Marital Status | | + + + | Sabianist Affiliation | 1069 | + + + | Race | Unknown | + + + | Ethnic Group | Unknown | + + + Author + + + | Author | [facility] | | | and [place] | + + + | Organization | [facility] | | | and [place] | + + + | Address | Unknown | + + + | Phone | Unavailable | + + + Support + + + + + | Name | Relationship | Address | Phone | + + + + + | Daniel Daniel | ECON | [place] | | | | | [address] | | + + + + + | Katherine Daniel | ECON | [address] | | | | | [place] | | | | | [address] | | + + + + + | Katherine Daniel | ECON | [address] | | | | | [place] | | | | | [address] | | + + + + + Care Team Providers + +------+ + | Care Die Cleaner Name | Role | Phone | [...] + + | 05/17/ | Office | [facility] | Yasmin Orellana, | Chronic diastolic | | 2019 | Visit | CARDIOLOGY CHARAN | MD Aamir YOON | congestive heart | | | | [address] | [place], [place] | failure (HCC) | | | | [place] [address] | [phone] | (Primary Dx); | | | | [place] | | Coronary artery | | | | [address] | | disease of bypass | | | | [phone] | | graft of burns paiute | | | | | | heart [...] 2018. Previously HPI. Recently evaluated in ER, [place] [facility] due to increased weight, lower ext edema. [...] Has been following up with Cardiology in [facility] for aortic valve stenosis. Had BIV [...] [place] | | | | | | [address] | | | | | | | | +--------+ + + + + documented as of this encounter Visit Diagnoses + + | Diagnosis | + + | Chronic diastolic congestive heart failure (HCC) - Primary Chronic diastolic heart | | failure | + + | Coronary artery disease of bypass graft of burns paiute heart with stable angina pectoris | | [...]
--- OUTSIDE RECORDS SUMMARY | ~2019-11-13 | XMS | Encounter Summary ---
Demographics + + + | Address | [address] | | | [place] [address] | + + + | Home Phone | | + + + | Preferred Language | Unknown | + + + | Marital Status | | + + + | Zoroastrianism Affiliation | 1069 | + + + | Race | Unknown | + + + | Ethnic Group | Unknown | + + + Author + + + | Author | [facility] | | | and [place] | + + + | Organization | [facility] [...] [place] | | | | | [address] | | + + + + + | Katherine Daniel | ECON | [address] | | | | | [place] | | | | | [address] | | + + + + + | Katherine Daniel | ECON | [address] | | | | | [place] | | | | | [address] | | + + + + + Care Team Providers + +------+ + | Care House Painter Helper Name | Role | Phone | [...] | | | | SP [address] | [place] [address] | | | | | [place] [address] | | | | | | [phone] | | | +--------+ + + + [...] | | | | | [place], [place] | | | | | | [address] | | | | | | | [...]
--- OUTSIDE RECORDS SUMMARY | ~2019-11-13 | XMS | Encounter Summary ---
Demographics + + + | Address | [address] | | | [place] [address] | + + + | Home Phone | | + + + | Preferred Language | Unknown | + + + | Marital Status | | + + + | Yazidi Affiliation | 1069 | + + + | Race | Unknown | + + + | Ethnic Group | Unknown | + + + Author + + + | Author | [facility] | | | and [place] | + + + | Organization | [facility] | | | and [place] | + + + | Address | Unknown | + + + | Phone | Unavailable | + + + Support + + + + + | Name | Relationship | Address | Phone | + + + + + | Daniel Daniel | ECON | [place] | | | | | [address] | | + + + + + | Katherine Daniel | ECON | [address] | | | | | [place] | | | | | [address] | | + + + + + | Katherine Daniel | ECON | [address] | | | | | [place] | | | | | [address] | | + + + + + Care Team Providers + +------+ + | Care Charge Coordinator Name | Role | Phone | [...] + + | 06/02/ | Refill | [facility] | Ben Lopez, | Medication Refill | | 2019 | | CARDIOLOGY VANESSA | Solution Make Up Operator | (Hydralazine) | | | | [address] | | | | | | [place] | | | | | | [address] | | | | | | [phone] | | | +--------+--------+ + + + [...] [place] | | | | | | [address] | | | | | | | | +--------+ + + + + documented as of this encounter Visit Diagnoses Not on filedocumented in this encounter"
--- OUTSIDE RECORDS SUMMARY | ~2019-11-13 | XMS | Encounter Summary ---
Demographics + + + | Address | [address] | | | [place] [address] | + + + | Home Phone | | + + + | Preferred Language | Unknown | + + + | Marital Status | | + + + | Catholic Affiliation | 1069 | + + + | Race | Unknown | + + + | Ethnic Group | Unknown | + + + Author + + + | Author | [facility] | | | and [place] | + + + | Organization | [facility] | [...] [place] | | | | | [address] | | + + + + + | Katherine Daniel | ECON | [address] | | | | | [place] | | | | | [address] | | + + + + + | Katherine Daniel | ECON | [address] | | | | | [place] | | | | | [address] | | + + + + + Care Team Providers + +------+ + | Care Logistics Operations Manager Name | Role | Phone [...] 2017 | | [facility] | MANAGER DELI | | | | | [facility] [address] | | | | | | [address] | | | | | | [place] [address] | | | | | | [phone] | | | +--------+ + + + [...] [place] | | | | | | [address] | | | | | | | | +--------+ + + + + documented as of this encounter Visit Diagnoses Not on filedocumented in this encounter"
--- OUTSIDE RECORDS SUMMARY | ~2019-11-13 | XMS | Encounter Summary ---
Demographics + + + | Address | [address] | | | [place] [address] | + + + | Home Phone | | + + + | Preferred Language | Unknown | + + + | Marital Status | | + + + | Holiness Affiliation | 1069 | + + + | Race | Unknown | + + + | Ethnic Group | Unknown | + + + Author + + + | Author | [facility] | | | and [place] | + + + | Organization | [facility] | | | and [place] | + + + | Address | Unknown | + + + | Phone | Unavailable | + + + Support + + + + + | Name | Relationship | Address | Phone | + + + + + | Daniel Daniel | ECON | [place] | | | | | [address] | | + + + + + | Katherine Daniel | ECON | [address] | | | | | [place] | | | | | [address] | | + + + + + | Katherine Daniel | ECON | [address] | | | | | [place] | | | | | [address] | | + + + + + Care Team Providers + +------+ + | Care Cat Scanner Operator Name | Role | Phone | + +------+ + PCP | Unavailable | + +------+ + Encounter Details +--------+ + + + + | Date | Type | Department | Care Team | Description | +--------+ + + + + | 11/13/ | Hospital | [facility] | Riccardo, | | | 2009 - | Encounter | MED CTR CANCER | Rodger Powell MD [address] | | | | [address] | [facility] | | | 11/25/ | | [place], [place] | [place] [address] | | | 2009 | | [address] | [phone] | | | | | [phone] | | | +--------+ + + + [...] | | | | | [place] | | | | | | [address] | | | | | | | | +--------+ + + + + documented as of this encounter Visit Diagnoses Not on filedocumented in this encounter"
--- OUTSIDE RECORDS SUMMARY | ~2019-11-13 | XMS | Encounter Summary ---
Demographics + + + | Address | [address] | | | [place] [address] | + + + | Home Phone | | + + + | Preferred Language | Unknown | + + + | Marital Status | | + + + | Hindu Affiliation | 1069 | + + + | Race | Unknown | + + + | Ethnic Group | Unknown | + + + Author + + + | Author | [facility] | | | and [place] | + + + | Organization | [facility] | | | and [place] | + + + | Address | Unknown | + + + | Phone | Unavailable | + + + Support + + + + + | Name | Relationship | Address | Phone | + + + + + | Daniel Daniel | ECON | [place] | | | | | [address] | | + + + + + | Katherine Daniel | ECON | [address] | | | | | [place] | | | | | [address] | | + + + + + | Katherine Daniel | ECON | [address] | | | | | [place] | | | | | [address] | | + + + + + Care Team Providers + +------+ + | Care Early Childhood Associate Name | Role | Phone | [...] + + | 09/06/ | Procedure | [facility] | | Biventricular ICD | | 2020 | visit | [facility]ARDIOLOGY [facility] | | (implantable | | | | [address] | | cardioverter-defibri | | | | [place], [place] | | llator) in place | | | | [address] | | (Primary Dx) | | | | [phone] | | | +--------+ + + + [...] | | | | | | [facility] | | | | | | [address] | | | | | | | [...] Cm MD : 1940MRN: | | | [id number] Primary cardiology provider: Yasmin Bates Primary | | | electrophysiology provider: Alireza Urbina Device photoengraver apprentice: | | | Medtronic Device type: Biventricular [...] Testing reviewed by: | | | Clark Arviuz RN | | | | | |INTERROGATION [...]
--- OUTSIDE RECORDS SUMMARY | ~2019-11-13 | XMS | Encounter Summary ---
Demographics + + + | Address | [address] | | | [place] [address] | + + + | Home Phone | | + + + | Preferred Language | Unknown | + + + | Marital Status | | + + + | Temple Affiliation | EPI | + + + | Race | White | + + + | Ethnic Group | Not or | + + + Author + + + | Author | [facility] | + + + | Organization | [facility] | + + + | Address | Unknown | + + + | Phone | Unavailable | + + + Support + + +---------+ + | Name | Relationship | Address | Phone | + + +---------+ + | Katherine Daniel | ECON | Unknown | | + + +---------+ + Care Team Providers + +------+ + | Care Carpet Technician Name | Role | Phone | + +------+ + PCP | Unavailable | + +------+ + Encounter Details +--------+ + + + + | Date | Type | Department | Care Team | Description | +--------+ + + + + | 06/06/ | Results | Otolaryngology | Edis Hatch, | | | 2001 | Only | Head and Neck | MD [address] | | | | | Surgery Services at | [facility] | | | | | [address] | [place], [place] | | | | | [address] | [address] | | | | | Physician's | [phone] | | | | | Pavilion, [facility] floor | | | | | | [place], [place] | | | | | | [address] | | | | | | [phone] | | | +--------+ + + + [...] | + +--------+ + + + | NON INSURANCE INVESTIGATOR CYTOLOGY | Routin | 06/06/2002 | | Results for this | | | e | | | procedure are in the | | | | | | results section. | + +--------+ + + + documented in this encounter Results NON-INSURANCE INVESTIGATOR CYTOLOGY (06/06/2002) + + + + + + | Component | Value | Ref Range | Performed | Pathologist | | | | | At | Signature | + + + + + + | NON-INSURANCE INVESTIGATOR | SOURCE OF SPECIMEN:A | | [facility] | | | CYTOLOGY | Lymph Node FNA, done by | | DEPARTMENT | | | | pathologistGROSS | | OF | | | | DESCRIPTION: FNA x 3. | | PATHOLOGY | | | | 6 direct smears, 1 | | | | | | surepath slide.CLINICAL | | | | | | HISTORY: History of | | | | | | (metastatic to neck | | | | | | right side) squamous | | | | | | cellcarcinoma with | | | | | | unknown primary | | | | | | presenting with mid-left | | | | | | enlarged lymphnode. | | | | | | Diagnosis:Positive for | | | | | | malignancy - metastatic | | | | | | squamous cell carcinoma. | | | | | | Adequacy:Satisfactory | | | | | | for evaluation. | | | | | | Immediate | | | | | | Impression:Adequate | | | | | | material | | | | | | obtained.Positive for | | | | | | malignancy.(HG/LN/MS).Re | | | | | | ndering Diagnostician: | | | | | | Howard Abdi | | | | | | Loly | | | | | | ronda Signed | | | | | | 06/07/2002Comment: | | | | | | SOURCE OF SPECIMEN: | | | | | | Lymph Node FNA, done by | | | | | | pathologist | | | | + + + + + + + + | Specimen | + + | | + + + + + + + | Performing | Address | City/State/Zipcode | Phone Number | | Organization | | | | + + + + + | [facility] DEPARTMENT OF | [address] | [place] [address] | | | PATHOLOGY | [address] | | | + + + + + | [facility] DEPARTMENT OF | [address] | [place] [address] | | | PATHOLOGY | [address] | | | + + + + + documented in this encounter Visit Diagnoses Not on filedocumented in this encounter"
--- OUTSIDE RECORDS SUMMARY | ~2019-11-13 | XMS | Encounter Summary ---
Demographics + + + | Address | [address] | | | [place] [address] | + + + | Home Phone | | + + + | Preferred Language | Unknown | + + + | Marital Status | | + + + | Anabaptism Affiliation | EPI | + + + [...] Team Providers + +------+ + | Care School Bus Aide Name | Role | Phone | + [...] as of this encounter Progress Notes Interface, Creative Strategist In - 01/02/2006 3:09 AM PDTCLINIC DATE: [...] will await his response. Edis Hatch M.D. Beach Expert, Otolaryngology [facility] / [id number] / [id number] / [id number] / Tdocumented in this encounter Plan of Treatment Not on filedocumented as of this encounter Visit Diagnoses Not on filedocumented in this encounter"
--- OUTSIDE RECORDS SUMMARY | ~2019-11-13 | XMS | Encounter Summary ---
Demographics + + + | Address | [address] | | | [place] [address] | + + + | Home Phone | | + + + | Preferred Language | Unknown | + + + | Marital Status | | + + + | Adventism Affiliation | EPI | + + + | Race | White | + + + | Ethnic Group | Not or | + + + Author + + + | Author | [facility] | + + + | Organization | [facility] | + + + | Address | Unknown | + + + | Phone | Unavailable | + + + Support + + +---------+ + | Name | Relationship | Address | Phone | + + +---------+ + | Katherine Daniel | ECON | Unknown | | + + +---------+ + Care Team Providers + +------+ + | Care Fabrication And Assembly Supervisor Name | Role | Phone | + +------+ + | Sander Murphy MD | PCP | | + +------+ + Encounter Details +--------+ + + + + | Date | Type | Department | Care Team | Description | +--------+ + + + + | 05/17/ | Telephone | [facility] | Simon Novoa, OD | | | 2013 | | [place] at [facility] | [address] | | | | | [address] | [place] [address] | | | | | Mailcode: [facility] | [phone] | | | | | [facility] | | | | | | and [place], | | | | | | | | | | | | Floor [place], [place] | | | | | | [address] | | | | | | [phone] | | | +--------+ + + + [...]
--- OUTSIDE RECORDS SUMMARY | ~2019-11-13 | XMS | Encounter Summary ---
Demographics + + + | Address | [address] | | | [place] [address] | + + + | Home Phone [...] | [facility] | | | and [place] | + + + | Organization | [facility] | | | and [place] | + + + | Address | Unknown | + + + | Phone | Unavailable | + + + Support + + + + + | Name | Relationship | Address | Phone | + + + + + | Daniel Daniel | ECON | [place] | | | | | [address] | | + + + + + | Katherine Daniel | ECON | [address] | | | | | [place] | | | | | [address] | | + + + + + | Katherine Daniel | ECON | [address] | | | | | [place] | | | | | [address] | | + + + + + Care Team Providers + +------+ + | Care Sales And Marketing Director Name | Role | Phone | + +------+ + | Tracie Cm MD | PCP | | + +------+ + Reason for Visit + + + | Reason | Comments | + + + | Medication Refill | Carvedilol | + + + Encounter Details +--------+--------+ + + + | Date | Type | Department | Care Team | Description | +--------+--------+ + + + | 10/01/ | Refill | [facility] | Yasmin Bates, | Medication Refill | | 2020 | | CARDIOLOGY VANESSA | MD Aamir YOON | (Carvedilol) | | | | [address] | [place] | | | | | [place], [place] | [id number] | | | | | [address] | | | | | | [phone] | | | +--------+--------+ + + + [...] [place] | | | | | | [address] | | | | | | | | +--------+ + + + + documented as of this encounter Visit Diagnoses Not on filedocumented in this encounter"
--- OUTSIDE RECORDS SUMMARY | ~2019-11-13 | XMS | Encounter Summary ---
Demographics + + + | Address | [address] | | | [place] [address] | + + + | Home Phone | | + + + | Preferred Language | Unknown | + + + | Marital Status | | + + + | Taoism Affiliation | 1069 | + + + | Race | Unknown | + + + | Ethnic Group | Unknown | + + + Author + + + | Author | [facility] | | | and [place] | + + + | Organization | [facility] | [...] [place] | | | | | [address] | | + + + + + | Katherine Daniel | ECON | [address] | | | | | [place] | | | | | [address] | | + + + + + | Katherine Daniel | ECON | [address] | | | | | [place] | | | | | [address] | | + + + + + Care Team Providers + +------+ + | Care Anode Worker Name | Role | Phone | [...] Unknown | (HCC) | | | | [place], [place] | [phone] | | | | | [address] | | | | | | [phone] | | | +--------+ + + + [...] | | | | | [place] | | | | | | [address] | | | | | | | | +--------+ + + + + documented as of this encounter Visit Diagnoses + + | Diagnosis | + + | Secondary and unspecified malignant neoplasm of lymph nodes of head, face, and neck | + + documented in this encounter"
--- OUTSIDE RECORDS SUMMARY | ~2019-11-13 | XMS | Encounter Summary ---
Demographics + + + | Address | [address] | | | [place] [address] | + + + | Home Phone [...] Team Providers + +------+ + | Care Garbage Collector Supervisor Name | Role | Phone | [...] as of this encounter Progress Notes Interface, Knowledge Management Consultant In - 02/13/2006 1:11 AM PDTCLINIC DATE: [...] visit in 2 months. Edis Hatch M.D. Accredited Legal Secretary of Otolaryngology [facility] / [id number] / [id number] / [id number] / Tdocumented in this encounter Plan of Treatment Not on filedocumented as of this encounter Visit Diagnoses Not on filedocumented in this encounter"
--- OUTSIDE RECORDS SUMMARY | ~2019-11-13 | XMS | Encounter Summary ---
Demographics + + + | Address | [address] | | | [place] [address] | + + + | Home Phone [...] + + | Author | [facility] | | | and [place] | + + + | Organization | [facility] | | | and [place] | + + + | Address | Unknown | + + + | Phone | Unavailable | + + + Support + + + + + | Name | Relationship | Address | Phone | + + + + + | Daniel Daniel | ECON | [place] | | | | | [address] | | + + + + + | Katherine Daniel | ECON | [address] | | | | | [place] | | | | | [address] | | + + + + + | Katherine Daniel | ECON | [address] | | | | | [place] | | | | | [address] | | + + + + + Care Team Providers + +------+ + | Care Overhead Crane Inspector Name | Role | Phone | + +------+ + PCP | Unavailable | + +------+ + Encounter Details +--------+ + + + + | Date | Type | Department | Care Team | Description | +--------+ + + + + | 08/08/ | Hospital | [facility] | | | | 2010 - | Encounter | MED CTR CANCER | | | | | | CENTER [address] | | | | 08/21/ | | [place] | | | | 2010 | | [address] | | | | | | [phone] | | | +--------+ + + + [...] [place] | | | | | | [address] | | | | | | | | +--------+ + + + + documented as of this encounter Visit Diagnoses Not on filedocumented in this encounter"
--- OUTSIDE RECORDS SUMMARY | ~2019-11-13 | XMS | Encounter Summary ---
Demographics + + + | Address | [address] | | | [place] [address] | + + + | Home Phone | | + + + | Preferred Language | Unknown | + + + | Marital Status | | + + + | Roman Catholic Affiliation | 1069 | + + + | Race | Unknown | + + + | Ethnic Group | Unknown | + + + Author + + + | Author | [facility] | | | and [place] | + + + | Organization | [facility] | [...] [place] | | | | | [address] | | + + + + + | Katherine Daniel | ECON | [address] | | | | | [place] | | | | | [address] | | + + + + + | Katherine Daniel | ECON | [address] | | | | | [place] | | | | | [address] | | + + + + + Care Team Providers + +------+ + | Care Ordnance Truck Installation Mechanic Name | Role | Phone | [...] + + | 03/22/ | Telephone | [facility] | Alireza Urbina, | Device Check | | 2019 | | CARDIOLOGY VNAESSA | [address] | | | | | [address] | [place], [place] | | | | | [place], [place] | [address] | | | | | [address] | | | | | | [phone] | | | +--------+ + + + [...] [place] | | | | | | [address] | | | | | | | | +--------+ + + + + documented as of this encounter Visit Diagnoses Not on filedocumented in this encounter"
--- OUTSIDE RECORDS SUMMARY | ~2019-11-13 | XMS | Encounter Summary ---
Demographics + + + | Address | [address] | | | [place] [address] | + + + | Home Phone | | + + + | Preferred Language | Unknown | + + + | Marital Status | | + + + | Yazdanism Affiliation | 1069 | + + + | Race | Unknown | + + + | Ethnic Group | Unknown | + + + Author + + + | Author | [facility] | | | and [place] | + + + | Organization | [facility] | | | and [place] | + + + | Address | Unknown | + + + | Phone | Unavailable | + + + Support + + + + + | Name | Relationship | Address | Phone | + + + + + | Daniel Daniel | ECON | [place] | | | | | [address] | | + + + + + | Katherine Daniel | ECON | [address] | | | | | [place] | | | | | [address] | | + + + + + | Katherine Daniel | ECON | [address] | | | | | [place] | | | | | [address] | | + + + + + Care Team Providers + +------+ + | Care Kitchen Steward/Stewardess Name | Role | Phone | + +------+ + | Tracie Cm MD | PCP | | + +------+ + Reason for Visit + + + | Reason | Comments | + + + | Advice Only | home monitor disconnected | + + + Encounter Details +--------+ + + + + | Date | Type | Department | Care Team | Description | +--------+ + + + + | 07/06/ | Telephone | [facility] | Elidia Philip, | Advice Only (home | | 2020 | | CARDIOLOGY VANESSA | Milieu Coordinator | monitor | | | | [address] | | disconnected) | | | | [place] | | | | | | [address] | | | | | | [phone] | | | +--------+ + + + [...] [place] | | | | | | [address] | | | | | | | | +--------+ + + + + documented as of this encounter Visit Diagnoses Not on filedocumented in this encounter"
--- OUTSIDE RECORDS SUMMARY | ~2019-11-13 | XMS | Encounter Summary ---
Demographics + + + | Address | [address] | | | [place] [address] | + + + | Home Phone | | + + + | Preferred Language | Unknown | + + + | Marital Status | | + + + | Caodaism Affiliation | 1069 | + + + | Race | Unknown | + + + | Ethnic Group | Unknown | + + + Author + + + | Author | [facility] | | | and [place] | + + + | Organization | [facility] | | | and [place] | + + + | Address | Unknown | + + + | Phone | Unavailable | + + + Support + + + + + | Name | Relationship | Address | Phone | + + + + + | Daniel Daniel | ECON | [place] | | | | | [address] | | + + + + + | Katherine Daniel | ECON | [address] | | | | | [place] | | | | | [address] | | + + + + + | Katherine Daniel | ECON | [address] | | | | | [place] | | | | | [address] | | + + + + + Care Team Providers + +------+ + | Care Concrete Mixer Loader Truck Mounted Name | Role | Phone | + +------+ + PCP | Unavailable | + +------+ + Encounter Details +--------+ + + + + | Date | Type | Department | Care Team | Description | +--------+ + + + + | 09/24/ | Hospital | [facility] | | | | 2010 - | Encounter | MED CTR CANCER | | | | | | CENTER [address] | | | | 09/25/ | | [place] | | | | 2010 | | [address] | | | | | | [phone] | | | +--------+ + + + [...] treatment. He had different, unconventional treatment at [facility] in [facility], at [facility] in [place], and also at [facility] in [place]. He was seen here in 07/2010 with [...] Silas German MD Radiation Oncology JOB #: [id number] EXT JOB #:[id number] <Electronicall y Signed by Silas German MD> [...] [place] | | | | | | [address] | | | | | | | | +--------+ + + + + documented as of this encounter Visit Diagnoses Not on filedocumented in this encounter
--- OUTSIDE RECORDS SUMMARY | ~2019-11-13 | XMS | Encounter Summary ---
Demographics + + + | Address | [address] | | | [place] [address] | + + + | Home Phone | | + + + | Preferred Language | Unknown | + + + | Marital Status | | + + + | Hoahaoism Affiliation | 1069 | + + + | Race | Unknown | + + + | Ethnic Group | Unknown | + + + Author + + + | Author | [facility] | | | and [place] | + + + | Organization | [facility] | | | and [place] | + + + | Address | Unknown | + + + | Phone | Unavailable | + + + Support + + + + + | Name | Relationship | Address | Phone | + + + + + | Daniel Daniel | ECON | [place] | | | | | [address] | | + + + + + | Katherine Daniel | ECON | [address] | | | | | [place] | | | | | [address] | | + + + + + | Katherine Daniel | ECON | [address] | | | | | [place] | | | | | [address] | | + + + + + Care Team Providers + +------+ + | Care Water Quality Control Engineer Name | Role | Phone | [...] + + | 07/06/ | Telephone | [facility] | Elidia Philip, | Advice Only (home | | 2020 | | CARDIOLOGY VANESSA | Satellite Dish Installer | monitor | | | | [address] | | disconnected) | | | | [place] | | | | | | [address] | | | | | | [phone] | | | +--------+ + + + [...] [place] | | | | | | [address] | | | | | | | | +--------+ + + + + documented as of this encounter Visit Diagnoses Not on filedocumented in this encounter"
--- OUTSIDE RECORDS SUMMARY | ~2019-11-13 | XMS | Encounter Summary ---
Demographics + + + | Address | [address] | | | [place] [address] | + + + | Home Phone | | + + + | Preferred Language | Unknown | + + + | Marital Status | | + + + | Religion Affiliation | EPI | + + + [...] Team Providers + +------+ + | Care Radio Control Crane Operator Name | Role | Phone | [...] floor | | | | | | [place], [place] | | | | | | [address] | | | | | | [phone] | | | +--------+ + + + [...] | | PATHOLOGY | | | | [facility] | | | | | | [facility] [place], | | | | | | [place], is | | | | | | [...] | | | | | | slide [id number] recut): | | | | | | [...] | + + + + + | [facility] DEPARTMENT | [address] | [place] [address] | | | PATHOLOGY | [address] | | | + + + + + | [facility] | [address] | [place] [address] | | | PATHOLOGY | [address] [...] | | | | | on the clinical laboratory technician view of | | | | | [...] + + | Performing | Address | City/State/Unm Cancer Centercode | Phone Number | | Organization | | | | + +---------+ + + | [facility] DEPARTMENT OF | | | | | RADIOLOGY | | | | + +---------+ + + documented in this encounter Visit Diagnoses Not on filedocumented in this encounter"
--- OUTSIDE RECORDS SUMMARY | ~2019-11-13 | XMS | Encounter Summary ---
Demographics + + + | Address | [address] | | | [place] [address] | + + + | Home Phone | | + + + | Preferred Language | Unknown | + + + | Marital Status | | + + + | Catholic Affiliation | EPI | + + + | Race | White | + + + | Ethnic Group | Not or | + + + Author + + + | Author | [facility] | + + + | Organization | [facility] | + + + | Address | Unknown | + + + | Phone | Unavailable | + + + Support + + +---------+ + | Name | Relationship | Address | Phone | + + +---------+ + | Katherine Daniel | ECON | Unknown | | + + +---------+ + Care Team Providers + +------+ + | Care Community Cultural Development Officer Name | Role | Phone | [...] as of this encounter Progress Notes Interface, Robot Operator In - 02/26/2006 1:00 AM PDTCLINIC DATE: [...] visit in 2 months. Edis Hatch M.D. Founder And Chief Technical Officer, Otolaryngology [facility] / [id number] / [id number] / [id number] / Tdocumented in this encounter Plan of Treatment Not on filedocumented as of this encounter Visit Diagnoses Not on filedocumented in this encounter"
--- OUTSIDE RECORDS SUMMARY | ~2019-11-13 | XMS | Encounter Summary ---
Demographics + + + | Address | [address] | | | [place] [address] | + + + | Home Phone | | + + + | Preferred Language | Unknown | + + + | Marital Status | | + + + | Baptist Affiliation | 1069 | + + + | Race | Unknown | + + + | Ethnic Group | Unknown | + + + Author + + + | Author | [facility] | | | and [place] | + + + | Organization | [facility] | | | and [place] | + + + | Address | Unknown | + + + | Phone | Unavailable | + + + Support + + + + + | Name | Relationship | Address | Phone | + + + + + | Daniel Daniel | ECON | [place] | | | | | [address] | | + + + + + | Katherine Daniel | ECON | [address] | | | | | [place] | | | | | [address] | | + + + + + | Katherine Daniel | ECON | [address] | | | | | [place] | | | | | [address] | | + + + + + Care Team Providers + +------+ + | Care Customer Account Executive Name | Role | Phone [...] | | | | [address] | [place] [address] | | | | | [place] [address] | | | | | | [phone] | | | +--------+ + + + [...] [place] | | | | | | [place], [place] | | | | | | [address] | | | | | | | [...]
--- OUTSIDE RECORDS SUMMARY | ~2019-11-13 | XMS | Encounter Summary ---
Demographics + + + | Address | [address] | | | [place] [address] | + + + | Home Phone | | + + + | Preferred Language | Unknown | + + + | Marital Status | | + + + | Temple Affiliation | EPI | + + + | Race | White | + + + | Ethnic Group | Not or | + + + Author + + + | Author | [facility] | + + + | Organization | [facility] | + + + | Address | Unknown | + + + | Phone | Unavailable | + + + Support + + +---------+ + | Name | Relationship | Address | Phone | + + +---------+ + | Katherine Daniel | ECON | Unknown | | + + +---------+ + Care Team Providers + +------+ + | Care Replanter Name | Role | Phone | + [...] | | | | | [place], | | | | | | [place] [address] | | | +--------+ + + + [...]
--- OUTSIDE RECORDS SUMMARY | ~2019-11-13 | XMS | Clinical Summary ---
Demographics + + + | Address | [address] | | | [place] [address] | + + + | Home Phone | | + + + | Preferred Language | Unknown | + + + | Marital Status | | + + + | Scientology Affiliation | Unknown | + + + | Race | Unknown | + + + | Ethnic Group | Unknown | + + + Author + + + | Author | [facility] (Historical as of | | | 02-11-19) | + + + | Organization | [facility] (Historical as of | | | 02-11-19) [...] [place] | | | | | [address] | | + + + + + Care Team Providers + +------+ + | Care Loss Control Manager Name | Role | Phone | [...] 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 Third device,Medtronic Praveen II | | WELDING FOREMAN-D ICD, placed on November 18:Normal device | [...] + + | Diabetes mellitus, type II ([facility]) | 08/10/2011 | + + + + [...] Dr. Serra, wishes to establish care with [place] | | sign artist. Will refer to cardiology and try to arrange his | | appointment for when he is in [place] for his generator change. | + + [...] +------+-------+ + | MEDICARE | MEDICA | [id number] | | | [address] | | | RE | | | | [place] [address] | | | IP-OP | | | | | + +--------+ +------+-------+ + | [employer] [place] | M[employer] | [id number] | | | | | | [place] | | | | | | | [place] | | | | | + +--------+ [...] | | al/Fam | | 1940 | [phone] | [place] [address] | | | sid | | | [address]: | | | | | | | | | | | | | | [phone] | | | | | | | [phone] | | + +--------+ +--------+ + +"
--- OUTSIDE RECORDS SUMMARY | ~2019-11-13 | XMS | Encounter Summary ---
Demographics + + + | Address | [address] | | | [place] [address] | + + + | Home Phone | | + + + | Preferred Language | Unknown | + + + | Marital Status | | + + + | Evangelical Affiliation | EPI | + + + [...] Team Providers + +------+ + | Care [facility] Name | Role | Phone | + [...] as of this encounter Progress Notes Interface, Child Welfare Caseworker In - 04/03/2006 3:10 AM PDTCLINIC DATE: [...] in 1 month. Edis Hatch M.D. [facility] / [id number] / [id number] / [id number] / [id number] cc: Anand Lackey M.D. [address] [place] [address] Austin Espinosa M.D. [address] [place] [address] [id number] signed by Interface, Child Welfare Caseworker In at 04/03/2006 3:10 AM PDTInterf sasha, Child Welfare Caseworker In - 04/03/2006 3:10 AM PDTCLINIC DATE: [...] M.D. Edis Hatch M.D. [facility] / JODEE [id number] / [id number] / [id number] / [id number] signed by Interface, Child Welfare Caseworker In at 04/03/2006 3:10 AM PDTdocume nted in this encounter Plan of Treatment Not on filedocumented as of this encounter Visit Diagnoses Not on filedocumented in this encounter"
--- OUTSIDE RECORDS SUMMARY | ~2019-11-13 | XMS | Encounter Summary ---
Demographics + + + | Address | [address] | | | [place] [address] | + + + | Home Phone [...] | Author | [facility] | | | and [place] | + + + | Organization | [facility] | [...] [place] | | | | | [address] | | + + + + + | Katherine Daniel | ECON | [address] | | | | | [place] | | | | | [address] | | + + + + + | Katherine Daniel | ECON | [address] | | | | | [place] | | | | | [address] | | + + + + + Care Team Providers + +------+ + | Care Canceling Machine Operator Name | Role | Phone [...] + + | 10/01/ | Refill | [facility] | Yasmin Bates, | Medication Refill | | 2020 | | CARDIOLOGY VANESSA | MD Aamir YOON | (Carvedilol) | | | | [address] | [place] | | | | | [place], [place] | [id number] | | | | | [address] | | | | | | [phone] | | | +--------+--------+ + + + [...] [place] | | | | | | [address] | | | | | | | | +--------+ + + + + documented as of this encounter Visit Diagnoses Not on filedocumented in this encounter"
--- OUTSIDE RECORDS SUMMARY | ~2019-11-13 | XMS | Encounter Summary ---
Demographics + + + | Address | [address] | | | [place] [address] | + + + | Home Phone | | + + + | Preferred Language | Unknown | + + + | Marital Status | | + + + | Moravian Affiliation | 1069 | + + + | Race | Unknown | + + + | Ethnic Group | Unknown | + + + Author + + + | Author | [facility] | | | and [place] | + + + | Organization | [facility] | | | and [place] | + + + | Address | Unknown | + + + | Phone | Unavailable | + + + Support + + + + + | Name | Relationship | Address | Phone | + + + + + | Daniel Daniel | ECON | [place] | | | | | [address] | | + + + + + | Katherine Daniel | ECON | [address] | | | | | [place] | | | | | [address] | | + + + + + | Katherine Daniel | ECON | [address] | | | | | [place] | | | | | [address] | | + + + + + Care Team Providers + +------+ + | Care Teachers Aide Name | Role | Phone | + +------+ + PCP | Unavailable | + +------+ + Encounter Details +--------+ + + + + | Date | Type | Department | Care Team | Description | +--------+ + + + + | 06/02/ | Hospital | [facility] | Cali Alatorre, | | | 2010 - | Encounter | MED CTR CANCER | [address] | | | | | [place] | [place] | | | 06/27/ | | [place] | [address] | | | 2010 | | [address] | [phone] | | | | | [phone] | | | +--------+ + + + [...] Cali Alatorre MD Radiation Oncology JOB #: [id number] EXT JOB #:[id number] cc: MD Sander Duncan MD <Electronically Signed [...] [place] | | | | | | [address] | | | | | | | | +--------+ + + + + documented as of this encounter Visit Diagnoses Not on filedocumented in this encounter"
--- OUTSIDE RECORDS SUMMARY | ~2019-11-13 | XMS | Encounter Summary ---
Demographics + + + | Address | [address] | | | [place] [address] | + + + | Home Phone [...] Team Providers + +------+ + | Care Medical Administrative Technician Name | Role | Phone | [...] | Transcriptions | + + | Interface, Plexiglas Former In - 04/21/2006 3:04 AM PDT | | [facility] [address] | | [place], [place] [address] | | [facility] Rec [facility] | | [id number] Date: 12/23/2000Name: Krystina Daniel SURGEON: | | Edis Hatch M.D.TAVERN CAR ATTENDANT(S): Brent Mock, | | Reinaldo.PREOPERATIVE DIAGNOSIS(ES):Metastatic squamous [...] no complications.Pursuant to federal Medicare regulations, Dr. dEis Hatch | | was presentfor the critical [...] | | | | | | | |[id number] | + + documented in this encounter Visit Diagnoses Not on filedocumented in this encounter"
--- OUTSIDE RECORDS SUMMARY | ~2019-11-13 | XMS | Encounter Summary ---
Demographics + + + | Address | [address] | | | [place] [address] | + + + | Home Phone [...] [facility] | | | and [place] | + + + | Organization | [facility] | | | and [place] | + + + | Address | Unknown | + + + | Phone | Unavailable | + + + Support + + + + + | Name | Relationship | Address | Phone | + + + + + | Daniel Daniel | ECON | [place] | | | | | [address] | | + + + + + | Katherine Daniel | ECON | [address] | | | | | [place] | | | | | [address] | | + + + + + | Katherine Daniel | ECON | [address] | | | | | [place] | | | | | [address] | | + + + + + Care Team Providers + +------+ + | Care Reel Hooker Name | Role | Phone | + [...] | 2017 | | [address] | [address] | | | | | [address] | [place] [address] [place], | | | | | [place], [place] | [place] [address] | | | | | [address] | [phone] | | | | | [phone] | | | +--------+ + + + [...] | | | | | [place] | | | | | | [address] | | | | | | | [...] TR maxP.60 mmHg TR Vmax: 3.30 m/s Hand I Blocker: AMBROSE | | | Authenticated by: Yasmin [...] cmLVIDd: 5.54 cmLVPWd: 1.25 cmLVOT Area: 3.80 er7VOGN Diam: 2.20 | | cm%FS: 11.30 %EF(Teich): [...] | Index (A-L): 71.21 ml/m2LAAs A2C: 34.01 [id number] A-L A2C: 146.13 mlLALs A2C: | | 6.72 cmLAAs A4C: 33.15 sz8TNBGE A-L A4C: 130.21 mlLALs A4C: 7.16 cmRAAs: 29.50 | | ow5UWFIA A-L: 109.45 mlRAESV MOD: 109.04 mlRALs: 6.82 cmTAPSE: 2.15 cmAV maxPG: | | 19.36 mmHgAV meanP.30 mmHgAV Vmax: 2.19 m/Naima Vmean: 1.59 m/Naima VTI: | | 49.97 cmAVA Vmax: 1.20 cm2AVA (VTI): 1.12 [id number] Vmax: 0.00 cm2/m2AVAI (VTI): | | 0.00 cm2/m2LVOT maxP.93 mmHgLVOT meanP.04 mmHgLVSI Dopp: 28.17 ml/m2LVSV | | Dopp: 56.35 mlLVOT Vmax: 0.69 m/sLVOT Vmean: 0.48 m/sLVOT VTI: 14.81 cmMV maxPG: | | 17.24 mmHgMV meanP.94 mmHgMV Vmax: 2.07 m/sMV Vmean: 0.97 m/sMV VTI: | | 59.72 cmMVA (VTI): 0.94 [id number] e': 0.06 m/sLateral e': 0.05 m/sSystemic VTI: | | 116.52 cmRAP: 20 mmHgRVSP: 63.60 mmHgTR maxP.60 mmHgTR Vmax: 3.30 m/s | | Hand I Blocker: Beticated by: Yasmin More Date/Time: 04-08-2017 18:16:40 [...] |TR Vmax: 3.30 m/s | | | |Hand I Blocker: AMBROSE | |Authenticated by: Yasmin Bates | [...]
--- OUTSIDE RECORDS SUMMARY | ~2019-11-13 | XMS | Encounter Summary ---
Demographics + + + | Address | [address] | | | [place] [address] | + + + | Home Phone [...] + | Author | [facility] | | | and [place] | + + + | Organization | [facility] | | | and [place] | + + + | Address | Unknown | + + + | Phone | Unavailable | + + + Support + + + + + | Name | Relationship | Address | Phone | + + + + + | Daniel Daniel | ECON | [place] | | | | | [address] | | + + + + + | Katherine Daniel | ECON | [address] | | | | | [place] | | | | | [address] | | + + + + + | Katherine Daniel | ECON | [address] | | | | | [place] | | | | | [address] | | + + + + + Care Team Providers + +------+ + | Care Product Marketing Specialist Name | Role | Phone | [...] + + | 09/06/ | Procedure | [facility] | | Biventricular ICD | | 2020 | visit | [facility] [place] | | (implantable | | | | [address] | | cardioverter-defibri | | | | [place], [place] | | llator) in place | | | | [address] | | (Primary Dx) | | | | [phone] | | | +--------+ + + + [...] | | | | | | [facility] | | | | | | [address] | | | | | | | [...] Cm MD : 1940MRN: | | | [id number] Primary cardiology provider: Yasmin Bates Primary | | | electrophysiology provider: Alireza Urbina Device computer builder: | | | Medtronic Device type: Biventricular [...]
--- OUTSIDE RECORDS SUMMARY | ~2019-11-13 | XMS | Encounter Summary ---
Demographics + + + | Address | [address] | | | [place] [address] | + + + | Home Phone [...] + | Author | [facility] | | | and [place] | + + + | Organization | [facility] | | | and [place] | + + + | Address | Unknown | + + + | Phone | Unavailable | + + + Support + + + + + | Name | Relationship | Address | Phone | + + + + + | Daniel Daniel | ECON | [place] | | | | | [address] | | + + + + + | Katherine Daniel | ECON | [address] | | | | | [place] | | | | | [address] | | + + + + + | Katherine Daniel | ECON | [address] | | | | | [place] | | | | | [address] | | + + + + + Care Team Providers + +------+ + | Care Integration Engineer Name | Role | Phone | [...] | | Required | | corona | [address] | MD Rodger | | | | | Procedures | [place] | [address] | | | | | DE OFFICE | [place] | | | | | OUTPATIENT | [place] | [place] | | | | | VISIT 25 | [address] | [address] Phone: | | | | | MINUTES | Phone: | [phone] | | | | | | [phone] | Fax: | | | | | | Fax: | [phone] | | | | | | [phone] | | +--------+ + + + + + Encounter Details +--------+ + + + + | Date | Type | Department | Care Team | Description | +--------+ + + + + | 04/18/ | [facility] | [facility] | Cabrera Mccoy | Macrocytic anemia | | 2018 | Encounter | [facility] | MD Rodger [address] | (Primary Dx) | | | | [facility] [address] | | | | | [address] | [place] [address] | | | | | [place] [address] | [phone] | | | | | [phone] | | | +--------+ + + + [...] of this encounter Progress Notes Alicia Ross, MEDICAL TECHNICIANS - 04/18/2018 2:53 PM PDTREVIEW OF SYSTEMS [...] | | | | | | [place] [facility] [place] [place] | | | | | | [address] | | | | | | | [...] + | [facility] | [address] | [place] | [phone] | | [facility] | | [address] | | | - LABORATORY | | [...] ST. | [address] | [place], [place] | [phone] | | [facility] | | [address] | | | - LABORATORY | | [...] [address] | [place] | [phone] | | [facility] | | [address] | | | - LABORATORY | | [...] + | [facility] | [address] | [place] | [phone] | | [facility] | | [address] | | | - LABORATORY | | [...] | | | | mmol/L | [facility] | | | | | | MEDICAL [...] | | | FILTRATION | mL/min/1.73m2 | [facility] | | | GUYANESE | RATE,ESTIMATED | | MEDICAL | | | | mL/min/1.28d1Gfbx than | | CENTER - | | [...] 4.0 | 3.2 - 5.0 g/dL | [facility] | | | | | | [facility] | | | | | | MEDICAL [...] + | [facility] | [address] | [place] | [phone] | | [facility] | | [address] | | | - LABORATORY | | [...] [address] | [place] | [phone] | | [facility] | | [address] | | | - LABORATORY | | [...]
--- OUTSIDE RECORDS SUMMARY | ~2019-11-13 | XMS | Encounter Summary ---
Demographics + + + | Address | [address] | | | [place] [address] | + + + | Home Phone | | + + + | Preferred Language | Unknown | + + + | Marital Status | | + + + | Adventist Affiliation | EPI | + + + | Race | White | + + + | Ethnic Group | Not or | + + + Author + + + | Author | [facility] | + + + | Organization | [facility] | + + + | Address | Unknown | + + + | Phone | Unavailable | + + + Support + + +---------+ + | Name | Relationship | Address | Phone | + + +---------+ + | Katherine Daniel | ECON | Unknown | | + + +---------+ + Care Team Providers + +------+ + | Care Online Content Developer Name | Role | Phone | + +------+ + | Sander Murphy MD | PCP | | + +------+ + Encounter Details +--------+ + + + + | Date | Type | Department | Care Team | Description | +--------+ + + + + | 03/01/ | Document-Sc | UNKNOWN DEPARTMENT | Other, Faculty | | | 2008 | anned | [address] | [phone] | | | | | [address] | | | | | | [place], [place] | | | | | | [address] | | | +--------+ + + + [...]
--- OUTSIDE RECORDS SUMMARY | ~2019-11-13 | XMS | Encounter Summary ---
Demographics + + + | Address | [address] | | | [place] [address] | + + + | Home Phone | | + + + | Preferred Language | Unknown | + + + | Marital Status | | + + + | Yarsanism Affiliation | EPI | + + + | Race | White | + + + | Ethnic Group | Not or | + + + Author + + + | Author | [facility] | + + + | Organization | [facility] | + + + | Address | Unknown | + + + | Phone | Unavailable | + + + Support + + +---------+ + | Name | Relationship | Address | Phone | + + +---------+ + | Katherine Gomez | ECON | Unknown | | + + +---------+ + Care Team Providers + +------+ + | Care Geographic Information Scientist Name | Role | Phone | + +------+ + PCP | Unavailable | + +------+ + Encounter Details +--------+ + + + + | Date | Type | Department | Care Team | Description | +--------+ + + + + | 12/24/ | Documentati | Anesthesiology | Unknown . | | | 2000 | on | [address] | | | | | | [place], | | | | | | [place] [address] | | | +--------+ + + + [...] | + +--------+ + + + | ANESTHESIA/SEDATION | | 12/24/2000 | | Results for this | | | | 11:34 AM | | procedure are in the | | | | PDT | | results section. | + +--------+ + + + documented in this encounter Results ANESTHESIA/SEDATION (12/24/2000 11:34 AM PDT) + + + | Narrative | Performed At | + + + | Ordered by an unspecified provider. | | + + + + + | Transcriptions | + + | 12/24/2000 11:34 AM PDT Anesthesia PostOp Report | | | | Patient: DAVID GOMEZ [facility] Rec: [id number] Sex M Bdate: 1940 | | Date/Time Data | | Entered Into [facility] | | Anesth PostOp | | Surgery Date [id number] 12/24/00 11:34 | | Anesthesiologist ROMERO LUNA 12/24/00 11:34 | | Resident Anesthesiolog DAWN ADAM 12/24/00 11:34 | | Complications | | Arrhythmia YES 12/27/00 00:48 | | Other Postop Complication 12/27/00 00:48 | | PT. WITH PRE-EXISTING LBBB, ? ST CHANGES | | Treatment Postop Complication 12/27/00 00:48 | | TELEM, SERIAL PRISCILLA RITCHIE (NEG) | | Outcomes Information | | Satisfied with care NOT AVAILABLE 12/27/00 00:48 | | Info obtained from OTHER 12/27/00 00:48 | | Outcome of Anesthesia NO CHANGE IN HOSPITAL COURSE 12/27/00 00:48 | | | + + documented in this encounter Visit Diagnoses Not on filedocumented in this encounter"
--- OUTSIDE RECORDS SUMMARY | ~2019-11-13 | XMS | Encounter Summary ---
Demographics + + + | Address | [address] | | | [place] [address] | + + + | Home Phone | | + + + | Preferred Language | Unknown | + + + | Marital Status | | + + + | Mormonism Affiliation | EPI | + + + [...] Team Providers + +------+ + | Care Cultural Historian Name | Role | Phone | + +------+ + | Sander Murphy MD | PCP | | + +------+ + Encounter Details +--------+ + + + + | Date | Type | Department | Care Team | Description | +--------+ + + + + | 03/01/ | Document-Sc | UNKNOWN DEPARTMENT | Other, Faculty | | | 2008 | anned | [address] | [phone] | | | | | [address] | | | | | | [place], [place] | | | | | | [address] | | | +--------+ + + + [...]
--- OUTSIDE RECORDS SUMMARY | ~2019-11-13 | XMS | Encounter Summary ---
Demographics + + + | Address | [address] | | | [place] [address] | + + + | Home Phone | | + + + | Preferred Language | Unknown | + + + | Marital Status | | + + + | Jain Affiliation | 1069 | + + + | Race | Unknown | + + + | Ethnic Group | Unknown | + + + Author + + + | Author | [facility] | | | and [place] | + + + | Organization | [facility] | | | and [place] | + + + | Address | Unknown | + + + | Phone | Unavailable | + + + Support + + + + + | Name | Relationship | Address | Phone | + + + + + | Daniel Daniel | ECON | [place] | | | | | [address] | | + + + + + | Katherine Daniel | ECON | [address] | | | | | [place] | | | | | [address] | | + + + + + | Katherine Daniel | ECON | [address] | | | | | [place] | | | | | [address] | | + + + + + Care Team Providers + +------+ + | Care Paste Mixer Liquid Name | Role | Phone | + [...] | | | | SP [address] | [place] [address] | | | | | [place] [address] | | | | | | [phone] | | | +--------+ + + + [...] | | | | | [place], [place] | | | | | | [address] | | | | | | | [...]
--- OUTSIDE RECORDS SUMMARY | ~2019-11-13 | XMS | Encounter Summary ---
Demographics + + + | Address | [address] | | | [place] [address] | + + + | Home Phone | | + + + | Preferred Language | Unknown | + + + | Marital Status | | + + + | Episcopal Affiliation | 1069 | + + + | Race | Unknown | + + + | Ethnic Group | Unknown | + + + Author + + + | Author | [facility] | | | and [place] | + + + | Organization | [facility] | | | and [place] | + + + | Address | Unknown | + + + | Phone | Unavailable | + + + Support + + + + + | Name | Relationship | Address | Phone | + + + + + | Daniel Daniel | ECON | [place] | | | | | [address] | | + + + + + | Katherine Daniel | ECON | [address] | | | | | [place] | | | | | [address] | | + + + + + | Katherine Daniel | ECON | [address] | | | | | [place] | | | | | [address] | | + + + + + Care Team Providers + +------+ + | Care Provisioning Analyst Name | Role | Phone | + +------+ + | Tracie Cm MD | PCP | | + +------+ + Encounter Details +--------+ + + + + | Date | Type | Department | Care Team | Description | +--------+ + + + + | 01/19/ | Orders Only | [facility] | Provider, | Other specified | | 2019 | | SYSTEM GENERIC OP | MD [address] | postprocedural | | | | CONVERSION [address] | [address] | states; Ischemic | | | | [address] [place], [place] | [place] [address] | cardiomyopathy; | | | | [address] | | Atherosclerosis of | | | | [phone] | | coronary artery | | | | | | bypass graft(s), | | | | | | unspecified, with | | | | | | other forms of | | | | | | angina pectoris | | | | | | (HCC); Chronic | | | | | | diastolic heart | | | | | | failure (HCC); | | | | | | Essential (primary) | | | | | | hypertension | +--------+ + + + + Social [...] [place] | | | | | | [address] | | | | | | | | +--------+ + + + + + +------+--------+ + + | Name | Type | Priori | Associated Diagnoses | Order Schedule | | | | ty | | | + +------+--------+ + + | Comprehensive | Lab | Routin | Other specified | Expected: | | Metabolic Panel | | e | postprocedural | 01/04/2019, Expires: | | | | | states Ischemic | 01/05/2020 | | | | | cardiomyopathy | | | | | | Atherosclerosis of | | | | | | coronary artery | | | | | | bypass graft(s), | | | | | | unspecified, with | | | | | | other forms of | | | | | | angina pectoris | | | | | | (HCC) Chronic | | | | | | diastolic heart | | | | | | failure (HCC) | | | | | | Essential (primary) | | | | | | hypertension | | + +------+--------+ + + documented as of this encounter Visit Diagnoses + + | Diagnosis | + + | Other specified postprocedural states | + + | Ischemic cardiomyopathy Other specified forms of chronic ischemic heart disease | + + | Atherosclerosis of coronary artery bypass graft(s), unspecified, 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
--- OUTSIDE RECORDS SUMMARY | ~2019-11-13 | XMS | Encounter Summary ---
Demographics + + + | Address | [address] | | | [place] [address] | + + + | Home Phone [...] Author | [facility] | | | and [place] | + + + | Organization | [facility] | [...] [place] | | | | | [address] | | + + + + + | Katherine Daniel | ECON | [address] | | | | | [place] | | | | | [address] | | + + + + + | Katherine Daniel | ECON | [address] | | | | | [place] | | | | | [address] | | + + + + + Care Team Providers + +------+ + | Care Claim Specialist Name | Role | Phone | [...] | Radiology | Diagnoses | Jana | [facility] | | n not | | | Ischemic | MD Des | [address] | | Required | | | cardiomyopat | [address] | | | | | hy | [address] | [place], [place] | | | | | Non-rheumati | [place] | [address] | | | | | c mitral | [place], [place] | Phone: | | | | | regurgitatio | [address] | [phone] | | | | | n Chronic | Phone: | Fax: | | | | | diastolic | [phone] | [phone] | | | | | congestive | Fax: | | | | | | heart | [phone] | | | | | | failure | | | | | | | ([facility]) | | | | | | | Coronary | | | | | | | artery | | | | | | | disease of | | | | | | | bypass graft | | | | | | | of [place] | | | | | | | [...] + + | 11/07/ | Office | [facility] | [place], | Ischemic | | 2020 | Visit | CARDIOLOGY [place] | MD [address] | cardiomyopathy | | | | [address] | [address], [place] | (Primary Dx); | | | | [address] | [address] | Non-rheumatic mitral | | | | [place] | | regurgitation; | | | | [address] | | Chronic diastolic | | | | [phone] | | congestive heart | | | | | | failure (HCC); | | | | | | Coronary artery | | | | | | disease of bypass | | | | | | graft of [place] | | | | | | heart [...] 2018. Previously HPI. Recently evaluated in ER, [place] due to increased weight, lower ext edema. [...] Has been following up with Cardiology in [facility] for aortic valve stenosis. Had BIV [...] [place] | | | | | | [id number] | | | | | | | [...] | | | | | graft of [place] | | | | | | heart with stable | | | | | | angina pectoris | | | | | | ([facility]) Biventricular | | | | | | [...] | | | | | graft of [place] | | | | | | heart [...] | | | | | DES VELA (0114) on | | | | | | [...] Coronary artery disease of bypass graft of [place] heart with stable angina pectoris | | (HCC) | + + | Biventricular ICD (implantable cardioverter-defibrillator) in place | + + | S/P mitral valve clip implantation | + + documented in this encounter
--- OUTSIDE RECORDS SUMMARY | ~2019-11-13 | XMS | Encounter Summary ---
Demographics + + + | Address | [address] | | | [place] [address] | + + + | Home Phone | | + + + | Preferred Language | Unknown | + + + | Marital Status | | + + + | Christianity Affiliation | EPI | + + + | Race | White | + + + | Ethnic Group | Not or | + + + Author + + + | Author | [facility] | + + + | Organization | [facility] | + + + | Address | Unknown | + + + | Phone | Unavailable | + + + Support + + +---------+ + | Name | Relationship | Address | Phone | + + +---------+ + | Katherine Gomez | ECON | Unknown | | + + +---------+ + Care Team Providers + +------+ + | Care Paint Coating Machine Operator Name | Role | Phone [...] | | | | | [place], | | | | | | [place] [address] | | | +--------+ + + + [...] | | | | Patient: DAVID GOMEZ [facility] Rec: [id number] Sex M Bdate: 1940 | | Date/Time Data | | Entered Into [facility] | | Anesth PostOp | | Surgery Date [id number] 12/24/00 11:34 | | Anesthesiologist ROMERO LUNA [...]
--- OUTSIDE RECORDS SUMMARY | ~2019-11-13 | XMS | Clinical Summary ---
Demographics + + + | Address | [address] | | | [place] [address] | + + + | Home Phone | | + + + | Preferred Language | Unknown | + + + | Marital Status | | + + + | Holiness Affiliation | Unknown | + + + | Race | Unknown | + + + | Ethnic Group | Unknown | + + + Author + + + | Author | [facility] (Historical as of | | | 02-11-19) | + + + | Organization | [facility] (Historical as of | | | 02-11-19) [...] [place] | | | | | [address] | | + + + + + Care Team Providers + +------+ + | Care Automotive Technology Instructor Name | Role | Phone | [...] Coronary artery disease of bypass graft of [place] heart with | 09/28/2018 | | stable [...] + + + + | Atrial flutter ([facility]) | 11/17/2016 | + + + [...] 2009. Third device,Medtronic Praveen II | | SUPERVISOR WEBBING-D ICD, placed on November 18:Normal device | [...] + + | Diabetes mellitus, type II ([facility]) | 08/10/2011 | + + + [...] Dr. Serra, wishes to establish care with [place] | | heating engineer. Will refer to cardiology and try to arrange his | | appointment for when he is in [place] for his generator change. | + + [...] +------+-------+ + | MEDICARE | MEDICA | [id number] | | | [address] | | | RE | | | | [place] [address] | | | IP-OP | | | | | + +--------+ +------+-------+ + | [employer] | MUTUAL | [id number] | | | | | | OF | | | | | | | EEK | | | | | + +--------+ [...] | | al/Fam | | 1940 | [phone] | [place] [address] | | | sid | | | [address]: | | | | | | | | | | | | | | [phone] | | | | | | | [address] | | + +--------+ +--------+ + +"
--- OUTSIDE RECORDS SUMMARY | ~2019-11-13 | XMS | Encounter Summary ---
Demographics + + + | Address | [address] | | | [place] [address] | + + + | Home Phone [...] | Author | [facility] | | | and [place] | + + + | Organization | [facility] | | | and [place] | + + + | Address | Unknown | + + + | Phone | Unavailable | + + + Support + + + + + | Name | Relationship | Address | Phone | + + + + + | Daniel Daniel | ECON | [place] | | | | | [address] | | + + + + + | Katherine Daniel | ECON | [address] | | | | | [place] | | | | | [address] | | + + + + + | Katherine Daniel | ECON | [address] | | | | | [place] | | | | | [address] | | + + + + + Care Team Providers + +------+ + | Care Nurse Behavioral Health Care Name | Role | Phone | + +------+ + PCP | Unavailable | + +------+ + Encounter Details +--------+ + + + + | Date | Type | Department | Care Team | Description | +--------+ + + + + | 01/28/ | Hospital | [facility] | | | | 2010 - | Encounter | MED CTR OP REHAB | | | | | | [address] | | | | 02/25/ | | [place] [address] | | | | 2010 | | [phone] | | | +--------+ + + + [...] [place] | | | | | | [address] | | | | | | | | +--------+ + + + + documented as of this encounter Visit Diagnoses Not on filedocumented in this encounter"
--- OUTSIDE RECORDS SUMMARY | ~2019-11-13 | XMS | Encounter Summary ---
Demographics + + + | Address | [address] | | | [place] [address] | + + + | Home Phone | | + + + | Preferred Language | Unknown | + + + | Marital Status | | + + + | Latter-Day Affiliation | 1069 | + + + | Race | Unknown | + + + | Ethnic Group | Unknown | + + + Author + + + | Author | [facility] | | | and [place] | + + + | Organization | [facility] | | | and [place] | + + + | Address | Unknown | + + + | Phone | Unavailable | + + + Support + + + + + | Name | Relationship | Address | Phone | + + + + + | Daniel Daniel | ECON | [place] | | | | | [address] | | + + + + + | Katherine Daniel | ECON | [address] | | | | | [place] | | | | | [address] | | + + + + + | Katherine Daniel | ECON | [address] | | | | | [place] | | | | | [address] | | + + + + + Care Team Providers + +------+ + | Care Project Development Manager Name | Role | Phone | + +------+ + PCP | Unavailable | + +------+ + Encounter Details +--------+ + + + + | Date | Type | Department | Care Team | Description | +--------+ + + + + | 03/31/ | Hospital | [facility] | [place], | | | 2010 - | Encounter | MED CTR CANCER | [place] [address] | | | | | [place] [address] | [place] | | | 04/27/ | | [place] | [address] | | | 2010 | | [address] | [phone] | | | | | [phone] | | | +--------+ + + + [...] | | | | | [place] | | | | | | [address] | | | | | | | | +--------+ + + + + documented as of this encounter Visit Diagnoses Not on filedocumented in this encounter"
--- OUTSIDE RECORDS SUMMARY | ~2019-11-13 | XMS | Encounter Summary ---
Demographics + + + | Address | [address] | | | [place] [address] | + + + | Home Phone | | + + + | Preferred Language | Unknown | + + + | Marital Status | | + + + | Mandaeism Affiliation | 1069 | + + + | Race | Unknown | + + + | Ethnic Group | Unknown | + + + Author + + + | Author | [facility] | | | and [place] | + + + | Organization | [facility] | | | and [place] | + + + | Address | Unknown | + + + | Phone | Unavailable | + + + Support + + + + + | Name | Relationship | Address | Phone | + + + + + | Daniel Daniel | ECON | [place] | | | | | [address] | | + + + + + | Katherine Daniel | ECON | [address] | | | | | [place] | | | | | [address] | | + + + + + | Katherine Daniel | ECON | [address] | | | | | [place] | | | | | [address] | | + + + + + Care Team Providers + +------+ + | Care Media Consultant Outside Sales Name | Role | Phone | + +------+ + PCP | Unavailable | + +------+ + Encounter Details +--------+ + + + + | Date | Type | Department | Care Team | Description | +--------+ + + + + | 03/26/ | Hospital | [facility] | Cali Alatorre, | | | 2010 - | Encounter | MED CTR OP REHAB | [address] | | | | | [address] | [place] | | | 03/31/ | | [place] [address] | [address] | | | 2010 | | [phone] | [phone] | | | | | | | [...] nodes 594 0 cGy to the elective farnki regions, completing those treatments on 03/12/2011. The [...] ma rkedly improved and has enjoyed a Romanian dinner as well as a salmon dinner [...] seen by Dr. Feliz, ENT surgeon in [facility] for further followu p as well as myself. At this time we would like the patient to return in 2 months for [facility] followup. The patient and his are agreeable to this plan. DICTATED BY: Cali Alatorre MD Radiation Oncology JOB #: [id number] EXT JOB #:[id number] cc: MD Faizan Lauren MD <Electronically Signed [...] [place] | | | | | | [address] | | | | | | | | +--------+ + + + + documented as of this encounter Visit Diagnoses Not on filedocumented in this encounter"
--- OUTSIDE RECORDS SUMMARY | ~2019-11-13 | XMS | Encounter Summary ---
Demographics + + + | Address | [address] | | | [place] [address] | + + + | Home Phone | | + + + | Preferred Language | Unknown | + + + | Marital Status | | + + + | Presybeterian Affiliation | EPI | + + + [...] Providers + +------+ + | Care Vice President Of Software Engineering Name | Role | Phone | + [...] as of this encounter Progress Notes Interface, Shipper/Receiver In - 04/07/2006 3:12 AM PDTCLINIC DATE: [...] visit in 1 month. Edis Hatch M.D. Paster Supervisor, Otolaryngology [facility] / [id number] / [id number] / [id number] / [id number] cc: Anand Lackey M.D. [address] [facility]. [place] [address] Austin Espinosa M.D. [address] [place] [address] [id number] signed by Interface, Shipper/Receiver In at 04/07/2006 3:12 AM PDTdocume nted in this encounter Plan of Treatment Not on filedocumented as of this encounter Visit Diagnoses Not on filedocumented in this encounter"
--- OUTSIDE RECORDS SUMMARY | ~2019-11-13 | XMS | Encounter Summary ---
Demographics + + + | Address | [address] | | | [place] [address] | + + + | Home Phone [...] Author + + + | Author | [facility] | + + + | Organization | [facility] | + + + | Address | Unknown | + + + | Phone | Unavailable | + + + Support + + +---------+ + | Name | Relationship | Address | Phone | + + +---------+ + | Katherine Daniel | ECON | Unknown | | + + +---------+ + Care Team Providers + +------+ + | Care Control Panel Assembler Name | Role | Phone | [...] as of this encounter Progress Notes Interface, Utility Specialist In - 03/30/2006 3:00 AM PDTCLINIC DATE: 05/03/2001 OTOLARYNGOLOGY CLINIC SUBJECTIVE: Mr. Daniel returns for 1 month followup visit, he is doing well and has no complaints. He did see some sort of holistic medicine practitioner in [place] who did a test called amass test, [...] visit in 1 month. Edis Hatch M.D. Flight Crew Scheduler of Otolaryngology [facility] / [id number] / [id number] / [id number] / cc: Anand Lackey M.D. [address] [place] [address] [id number] signed by Interface, Utility Specialist In at 03/30/2006 3:00 AM PDTdoc umented in this encounter Plan of Treatment Not on filedocumented as of this encounter Visit Diagnoses Not on filedocumented in this encounter"
--- OUTSIDE RECORDS SUMMARY | ~2019-11-13 | XMS | Encounter Summary ---
Demographics + + + | Address | [address] | | | [place] [address] | + + + | Home Phone [...] Author | [facility] | | | and [place] | + + + | Organization | [facility] | | | and [place] | + + + | Address | Unknown | + + + | Phone | Unavailable | + + + Support + + + + + | Name | Relationship | Address | Phone | + + + + + | Daniel Daniel | ECON | [place] | | | | | [address] | | + + + + + | Katherine Daniel | ECON | [address] | | | | | [place] | | | | | [address] | | + + + + + | Katherine Daniel | ECON | [address] | | | | | [place] | | | | | [address] | | + + + + + Care Team Providers + +------+ + | Care Motion Picture Operator Name | Role | Phone | + +------+ + | Tracie Cm MD | PCP | | + +------+ + Encounter Details +--------+ + + + + | Date | Type | Department | Care Team | Description | +--------+ + + + + | 01/19/ | Orders Only | [facility] | Provider, | Other specified | | 2019 | | SYSTEM GENERIC OP | MD Daniel [address] | postprocedural | | | | CONVERSION [address] | [address] | states; Ischemic | | | | [address] [place], [place] | [place] [address] | cardiomyopathy; | | | | [address] | | Atherosclerosis of | | | | [phone] | | coronary artery | | | [...] [place] | | | | | | [address] | | | | | | | [...]
--- OUTSIDE RECORDS SUMMARY | ~2019-11-13 | XMS | Encounter Summary ---
Demographics + + + | Address | [address] | | | [place] [address] | + + + | Home Phone | | + + + | Preferred Language | Unknown | + + + | Marital Status | | + + + | Mormon Affiliation | EPI | + + + | Race | White | + + + | Ethnic Group | Not or | + + + Author + + + | Author | [facility] | + + + | Organization | [facility] | + + + | Address | Unknown | + + + | Phone | Unavailable | + + + Support + + +---------+ + | Name | Relationship | Address | Phone | + + +---------+ + | Katherine Daniel | ECON | Unknown | | + + +---------+ + Care Team Providers + +------+ + | Care Emblem Fuser Tender Name | Role | Phone | [...] as of this encounter Progress Notes Interface, Silk Washing Machine Operator In - 03/06/2006 1:02 AM PDTCLINIC DATE: [...] visit in 6 weeks. Edis Hatch M.D. Road Supervisor Of Engines, Otolaryngology [facility] / [id number] / [id number] / [id number] / [id number] signed by Interface, Silk Washing Machine Operator In at 03/06/2006 1:02 AM PDTdoc umented in this encounter Plan of Treatment Not on filedocumented as of this encounter Visit Diagnoses Not on filedocumented in this encounter"
--- OUTSIDE RECORDS SUMMARY | ~2019-11-13 | XMS | Encounter Summary ---
Demographics + + + | Address | [address] | | | [place] [address] | + + + | Home Phone | | + + + | Preferred Language | Unknown | + + + | Marital Status | | + + + | Tenriism Affiliation | EPI | + + + | Race | White | + + + | Ethnic Group | Not or | + + + Author + + + | Author | [facility] | + + + | Organization | [facility] | + + + | Address | Unknown | + + + | Phone | Unavailable | + + + Support + + +---------+ + | Name | Relationship | Address | Phone | + + +---------+ + | Katherine Daniel | ECON | Unknown | | + + +---------+ + Care Team Providers + +------+ + | Care Wind Tunnel Technician Name | Role | Phone | [...] as of this encounter Progress Notes Interface, Musical Performer In - 04/03/2006 3:10 AM PDTCLINIC DATE: [...] here in 1 month. Edis Hatch M.D. [facility] / [id number] / [id number] / [id number] / [id number] cc: Anand Lackey M.D. [address] [place] [address] Austin Espinosa M.D. [address] [facility]. [address] [place] [address] [id number] signed by Interface, Musical Performer In at 04/03/2006 3:10 AM PDTInterf sasha, Musical Performer In - 04/03/2006 3:10 AM PDTCLINIC DATE: [...] M.D. Edis Hatch M.D. [facility] / JODEE [id number] / [id number] / [id number] / [id number] signed by Interface, Musical Performer In at 04/03/2006 3:10 AM PDTdocume nted in this encounter Plan of Treatment Not on filedocumented as of this encounter Visit Diagnoses Not on filedocumented in this encounter"
--- OUTSIDE RECORDS SUMMARY | ~2019-11-13 | XMS | Encounter Summary ---
Demographics + + + | Address | [address] | | | [place] [address] | + + + | Home Phone [...] Team Providers + +------+ + | Care Field Merchandiser Name | Role | Phone | + +------+ + PCP | Unavailable | + +------+ + Encounter Details +--------+ + + + + | Date | Type | Department | Care Team | Description | +--------+ + + + + | 06/06/ | Results | Otolaryngology | Edis Hatch, | | | 2001 | Only | Head and Neck | MD [address] [facility] | | | | | Surgery Services at | [facility] | | | | | [address] | [place], [place] | | | | | [address] | [address] | | | | | Physician's | [phone] | | | | | Pavilion, [facility] floor | | | | | | [place], [place] | | | | | | [address] | | | | | | [phone] | | | +--------+ + + + [...] + +--------+ + + + | NON SETUP TECHNICIAN CYTOLOGY | Routin | 06/06/2002 | | Results for this | | | e | | | procedure are in the | | | | | | results section. | + +--------+ + + + documented in this encounter Results NON-SETUP TECHNICIAN CYTOLOGY (06/06/2002) + + + + + + | Component | Value | Ref Range | Performed | Pathologist | | | | | At | Signature | + + + + + + | NON-SETUP TECHNICIAN | SOURCE OF SPECIMEN:A | | [facility] [...] | + + + + + | [facility] DEPARTMENT OF | [address] | [place] [address] | | | PATHOLOGY | [address] | | | + + + + + | [facility] DEPARTMENT OF | [address] | [place] [address] | | | PATHOLOGY | [address] | | | + + + + + documented in this encounter Visit Diagnoses Not on filedocumented in this encounter"
--- OUTSIDE RECORDS SUMMARY | ~2019-11-13 | XMS | Encounter Summary ---
Demographics + + + | Address | [address] | | | [place] [address] | + + + | Home Phone [...] Author | [facility] | | | and [place] | + + + | Organization | [facility] | [...] [place] | | | | | [address] | | + + + + + | Katherine Daniel | ECON | [address] | | | | | [place] | | | | | [address] | | + + + + + | Katherine Daniel | ECON | [address] | | | | | [place] | | | | | [address] | | + + + + + Care Team Providers + +------+ + | Care Trade Show Specialist Name | Role | Phone | [...] + + | 09/24/ | Telephone | [facility] | Riccardo, | Other | | 2014 | | MED CTR MEDICAL | Rodger Powell MD [address] | | | | | ONCOLOG[facility] CL[facility] [address] | [facility] | | | | | W [facility] | [place] [address] | | | | | [place] [address] | [phone] | | | | | [phone] | | | +--------+ + + + [...] | | | | | [place] | | | | | | [address] | | | | | | | | +--------+ + + + + documented as of this encounter Visit Diagnoses Not on filecumented in this encounter"
--- OUTSIDE RECORDS SUMMARY | ~2019-11-13 | XMS | Encounter Summary ---
Demographics + + + | Address | [address] | | | [place] [address] | + + + | Home Phone | | + + + | Preferred Language | Unknown | + + + | Marital Status | | + + + | Yazidism Affiliation | EPI | + + + | Race | White | + + + | Ethnic Group | Not or | + + + Author + + + | Author | [facility] | + + + | Organization | [facility] | + + + | Address | Unknown | + + + | Phone | Unavailable | + + + Support + + +---------+ + | Name | Relationship | Address | Phone | + + +---------+ + | Katherine Daniel | ECON | Unknown | | + + +---------+ + Care Team Providers + +------+ + | Care Loss Prevention And Safety Manager Name | Role | Phone | + +------+ + PCP | Unavailable | + +------+ + Encounter Details +--------+ + + + + | Date | Type | Department | Care Team | Description | +--------+ + + + + | 12/22/ | Results | Otolaryngology | Edis Hatch, | | | 2000 | Only | Head and Neck | MD [address] [facility] | | | | | Surgery Services at | [facility] | | | | | [address] | [place], [place] | | | | | [address] | [address] | | | | | Physician's | [phone] | | | | | Pavilion, [facility] floor | | | | | | [place], [place] | | | | | | [address] | | | | | | [phone] | | | +--------+ + + + [...] + + + + + | [facility] | [address] [facility] | [place] [address] | | | PATHOLOGY | [address] | | | + + + + + | [facility] | [address] [place] [address] | [place] [address] | | | PATHOLOGY | [address] [...] DEPARTMENT OF | [address] | [place] [address] | | | PATHOLOGY | [address] | | | + + + + + | [place] DEPARTMENT OF | [address] [facility] | [place] [address] | | | PATHOLOGY | [address] [...] + + + + + | [facility] | [address] | [place] [address] | | | PATHOLOGY | [address] | | | + + + + + | [facility] DEPARTMENT | [address] | [place] [address] | | | PATHOLOGY | [address] [...] (L)Comment: | 0.98 - 1.08 INR | MISU | | | | PT INR Therapeutic [...] + + + + + | [facility] | [address] [place] [address] | [place] [address] | | | PATHOLOGY | [address] | | | + + + + + | [facility] | [address] [place] [address] | [place] [address] | | | PATHOLOGY | [address] [...] + + + + + | [facility] | [facility] | [place] [address] | | | PATHOLOGY | [address] | | | + + + + + | [facility] | [address] [place] [address] | [place] [address] | | | PATHOLOGY | [address] [...] + + + + + | [facility] | [address] | [place] [address] | | | PATHOLOGY | [address] | | | + + + + + | [facility] | [facility] [address] | [place] [address] | | | PATHOLOGY | [address] | | | + + + + + documented in this encounter Visit Diagnoses Not on filedocumented in this encounter"
--- OUTSIDE RECORDS SUMMARY | ~2019-11-13 | XMS | Encounter Summary ---
Demographics + + + | Address | [address] | | | [place] [address] | + + + | Home Phone | | + + + | Preferred Language | Unknown | + + + | Marital Status | | + + + | Church Affiliation | 1069 | + + + | Race | Unknown | + + + | Ethnic Group | Unknown | + + + Author + + + | Author | [facility] | | | and [place] | + + + | Organization | [facility] | | | and [place] | + + + | Address | Unknown | + + + | Phone | Unavailable | + + + Support + + + + + | Name | Relationship | Address | Phone | + + + + + | Daniel Daniel | ECON | [place] | | | | | [address] | | + + + + + | Katherine Daniel | ECON | [address] | | | | | [place] | | | | | [address] | | + + + + + | Katherine Daniel | ECON | [address] | | | | | [place] | | | | | [address] | | + + + + + Care Team Providers + +------+ + | Care Treating Engineer Name | Role | Phone | + +------+ + | Tracie Cm MD | PCP | | + +------+ + Encounter Details +--------+ + + + + | Date | Type | Department | Care Team | Description | +--------+ + + + + | 01/19/ | Orders Only | [facility] | Provider, | Other specified | | 2019 | | SYSTEM GENERIC OP | MD Daniel [address] | postprocedural | | | | CONVERSION [address] | 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
--- OUTSIDE RECORDS SUMMARY | ~2019-11-13 | XMS | Encounter Summary ---
Demographics + + + | Address | [address] | | | [place] [address] | + + + | Home Phone [...] + | Author | [facility] | | | and [place] | + + + | Organization | [facility] | | | and [place] | + + + | Address | Unknown | + + + | Phone | Unavailable | + + + Support + + + + + | Name | Relationship | Address | Phone | + + + + + | Daniel Daniel | ECON | [place] | | | | | [address] | | + + + + + | Katherine Daniel | ECON | [address] | | | | | [place] | | | | | [address] | | + + + + + | Katherine Daniel | ECON | [address] | | | | | [place] | | | | | [address] | | + + + + + Care Team Providers + +------+ + | Care Computer System Specialist Name | Role | Phone | + +------+ + PCP | Unavailable | + +------+ + Encounter Details +--------+ + + + + | Date | Type | Department | Care Team | Description | +--------+ + + + + | 01/08/ | Hospital | [facility] | | | | 2010 | Encounter | MED CTR PET SCAN | | | | | | [address] | | | | | | [place] [address] | | | | | | [phone] | | | +--------+ + + + [...] Kendra Nicolas MD Radiation Oncology JOB #: [id number] EXT JOB #:[id number] EDITED: 01/09/2011 15:58 cc: Bryant Navas MD [...] [place] | | | | | | [address] | | | | | | | [...] Performed At | + + + | [facility] Diagnostic Imaging Department | [facility] | | [address] [facility] | [facility] | | WHOLE BODY F-18 FDG | [...] Transcribed Date/Time: 01/10/2011 15:37 | | | Drying Oven Attendant: <Electronically Signed by Girish Dinero, | | | > 01/10/11 1747 | | + + + + + | Procedure Note | + + | Derrick, Rad Conversion - 08/04/2013 3:22 PM [facility] | | Diagnostic Imaging Department [address] [place] [address] | | WHOLE BODY F-18 FDG PET-NONCONTRAST [...] <Electronically Signed by Girish Dinero MD> 01/10/11 6817 | |No abnormal hypermetabolism is seen within [...] 15:08 | |Transcribed Date/Time: 01/10/2011 15:37 | |Drying Oven Attendant: | |<Electronically Signed by Girish Dinero MD> [...]
--- OUTSIDE RECORDS SUMMARY | ~2019-11-13 | XMS | Encounter Summary ---
Demographics + + + | Address | [address] | | | [place] [address] | + + + | Home Phone | | + + + | Preferred Language | Unknown | + + + | Marital Status | | + + + | Jew Affiliation | EPI | + + + [...] Team Providers + +------+ + | Care Refinery Process Engineer Name | Role | Phone | [...] as of this encounter Progress Notes Interface, Slate Roofer Helper In - 01/25/2006 1:15 AM PDTCLINIC DATE: 06/06/2002 OTOLARYNGOLOGY CLINIC HISTORY: Mr. Daniel returns for a followup visit. He just got back from [place] and during that time, he got quite ill, but he is feeling better now. His main concern is that he has developed a lump in the left side of his neck, and he did see Dr. Lackey in [place] for this last week, and they did [...] I did obtain the FNA report from [place] on a needle aspiration done on May [...] tells me that he is seeing a sheet metal erector in [place] and would like to go consult with [...] so with his decision. Edis Hatch M.D. Harp Maker of Otolaryngology [facility] / [id number] / [id number] / [id number] / [id number] cc: Anand Lackey M.D. [address] [place] [id number] signed by Interface, Slate Roofer Helper In at 01/25/2006 1:1 5 AM PDTdocumented in this encounter Plan of Treatment Not on filedocumented as of this encounter Visit Diagnoses Not on filedocumented in this encounter"
--- OUTSIDE RECORDS SUMMARY | ~2019-11-13 | XMS | Encounter Summary ---
Demographics + + + | Address | [address] | | | [place] [address] | + + + | Home Phone [...] + + + | Author | [facility] | + + + | Organization | [facility] | + + + | Address | Unknown | + + + | Phone | Unavailable | + + + Support + + +---------+ + | Name | Relationship | Address | Phone | + + +---------+ + | Katherine Daniel | ECON | Unknown | | + + +---------+ + Care Team Providers + +------+ + | Care Special Services Supervisor Name | Role | Phone | [...] as of this encounter Progress Notes Interface, Precision Machine Operator In - 04/17/2006 1:00 AM PDTCLINIC DATE: 01/04/2001 OTOLARYNGOLOGY CLINIC HISTORY OF PRESENT ILLNESS: Mr. 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 He did have his drain removed in [place] by Dr. Lackey last week. He is [...] me in one month. Edis Hatch M.D. [facility] / JODEE [id number] / [id number] / [id number] / cc: AMBER LACKEY M.D. [address] [place] [address] DOROTEO GOMEZ M.D. [address] [place] [address] [id number] signed by Interface, Precision Machine Operator In at 04/17/2006 1:00 AM PDTdocume nted in this encounter Plan of Treatment Not on filedocumented as of this encounter Visit Diagnoses Not on filedocumented in this encounter"
--- OUTSIDE RECORDS SUMMARY | ~2019-11-13 | XMS | Encounter Summary ---
Demographics + + + | Address | [address] | | | [place] [address] | + + + | Home Phone [...] | Author | [facility] | | | and [place] | + + + | Organization | [facility] | | | and [place] | + + + | Address | Unknown | + + + | Phone | Unavailable | + + + Support + + + + + | Name | Relationship | Address | Phone | + + + + + | Daniel Daniel | ECON | [place] | | | | | [address] | | + + + + + | Katherine Daniel | ECON | [address] | | | | | [place] | | | | | [address] | | + + + + + | Katherine Daniel | ECON | [address] | | | | | [place] | | | | | [address] | | + + + + + Care Team Providers + +------+ + | Care Varnish Blender Name | Role | Phone | + +------+ + PCP | Unavailable | + +------+ + Encounter Details +--------+ + + + + | Date | Type | Department | Care Team | Description | +--------+ + + + + | 09/01/ | Hospital | [facility] | Cali Alatorre, | | | 2011 - | Encounter | MED CTR CANCER | [place] [address] | | | | | [place] [address] | [place] | | | 09/25/ | | [place] | [address] | | | 2011 | | [address] | [phone] | | | | | [phone] | | | +--------+ + + + [...] | | | | | [place] | | | | | | [address] | | | | | | | | +--------+ + + + + documented as of this encounter Visit Diagnoses Not on filedocumented in this encounter"
--- OUTSIDE RECORDS SUMMARY | ~2019-11-13 | XMS | Encounter Summary ---
Demographics + + + | Address | [address] | | | [place] [address] | + + + | Home Phone | | + + + | Preferred Language | Unknown | + + + | Marital Status | | + + + | Restorationist Affiliation | 1069 | + + + | Race | Unknown | + + + | Ethnic Group | Unknown | + + + Author + + + | Author | [facility] | | | and [place] | + + + | Organization | [facility] | | | and [place] | + + + | Address | Unknown | + + + | Phone | Unavailable | + + + Support + + + + + | Name | Relationship | Address | Phone | + + + + + | Daniel Daniel | ECON | [place] | | | | | [address] | | + + + + + | Katherine Daniel | ECON | [address] | | | | | [place] | | | | | [address] | | + + + + + | Katherine Daniel | ECON | [address] | | | | | [place] | | | | | [address] | | + + + + + Care Team Providers + +------+ + | Care Advertising Specialist Name | Role | Phone | + +------+ + PCP | Unavailable | + +------+ + Encounter Details +--------+ + + + + | Date | Type | Department | Care Team | Description | +--------+ + + + + | 03/24/ | Hospital | [facility] | Cali Alatorre, | | | 2010 - | Encounter | [facility] | [place] [address] [facility] [address] | | | | | [place] [address] | [place] | | | 03/27/ | | [place] | [address] | | | 2010 | | [address] | [phone] | | | | | [phone] | | | +--------+ + + + [...] is a 70 year old man from [facility] on with recurrent squamous cell carcinoma [...] origin. 3. Initial management was at the [facility] in [place] (also known as the [facility] in [place], [place]). Treatments included intravenous high-dose vitamin C. 4. On June 06, 2002, he developed recurrent palpable lymphadenopathy in the left side of the neck that was biopsied and confirmed recurrence of squamous cell carcinoma. 5. Between 17 08 and 2003, he received intravenous chemotherapy at the [facility] in [place], [place], including insulin potentiation therapy. 6. He [...] March 21, 2009, he began therapy the [facility] with sodium phenylbutyrat e, Rapamune, and oral Xeloda chemotherapy. He continued on the treatment plan with vari ous doses and schedules with stable submental lymphadenopathy until September 25, 2009. 10. He cros sed over to Vectibix chemotherapy September 25, 2009 through January 29, 2010. Repeat CT scan on February 07, 2010 at [facility] in [place], [place] demonstrated progress ion of disease with [...] at the [facility] in [place], [place], who recommended palliative radiation therapy. He [...] see Dr. Silas German at the [facility] in [place], [place], who noted significant decrease in the size of the submental mass. He continued on al ternative medical regimens until January 01, 2011 when he returned to the [facility] in [place], [place] and was evaluated by Dr. Bryant [...] 31.8, platelets 185,000, white count 3400. Absol [place] neutrophil count is 2300. Comprehensive metabolic panel [...] to follow-up with Dr. Cali Alatorre in [facility] oncology. Follow-up in medical oncology will be open. CC: Dr. Sander Murphy <Electronically Signed by Rodger Gu MD> 03/27/11 1425 Rodger Gu MD - 02/26/2011 1:16 AM PDTPROGRESS NOTE: 03/23/2011 IDENTIFYING STATEMENT: Papo Daniel (Fritz) is a 70 year old man from [facility] on with recurrent squamous cell carcinoma [...] <Electronically Signed by Rodger Gu MD> 03/26/11 1051 Rodger Gu MD - 02/26/2011 1:16 AM PDTPROGRESS NOTE: 03/20/2011 IDENTIFYING STATEMENT: Papo Daniel (Fritz) is a 70 year old man from [facility] on with recurrent squamous cell carcinoma [...] origin. 3. Initial management was at the [facility] in [place] (also known as the [facility] in [place], [place]). Treatments included intravenous high-dose vitamin C. 4. On June 06, 2002, he developed recurrent palpable lymphadenopathy in the left side of the neck that was biopsied and confirmed recurrence of squamous cell carcinoma. 5. Between 17 08 and 2003, he received intravenous chemotherapy at the [facility] in [place], [place], including insulin potentiation therapy. 6. He [...] March 21, 2009, he began therapy the [facility] with sodium phenylbutyrat e, Rapamune, and oral Xeloda chemotherapy. He continued on the treatment plan with vari ous doses and schedules with stable submental lymphadenopathy until September 25, 2009. 10. He cros sed over to Vectibix chemotherapy September 25, 2009 through January 29, 2010. Repeat CT scan on February 07, 2010 at [facility] in [place], [place] demonstrated progress ion of disease with [...] at the [facility] in [place], [place], who recommended palliative radiation therapy. He [...] see Dr. Silas German at the [facility] in [place], [place], who noted significant decrease in the size of the submental mass. He continued on al ternative medical regimens until January 01, 2011 when he returned to the [facility] in [place], [place] and was evaluated by Dr. Bryant [...] center. He will then return to the [facility] on Wednesday for additional fluids. [...] is a 70 year old man from [facility] on with recurrent squamous cell carcinoma [...] is a 70 year old man from [facility] on with recurrent squamous cell carcinoma [...] is a 70 year old man from [facility] on with recurrent squamous cell carcinoma [...] origin. 3. Initial management was at the [facility] in [place] (also known as the [facility] in [place], [place]). Treatments included intravenous high-dose vitamin C. 4. On June 06, 2002, he developed recurrent palpable lymphadenopathy in the left side of the neck that was biopsied and confirmed recurrence of squamous cell carcinoma. 5. Between 17 08 and 2003, he received intravenous chemotherapy at the [facility] in [place], [place], including insulin potentiation therapy. 6. He [...] March 21, 2009, he began therapy the [facility] with sodium phenylbutyrat e, Rapamune, and oral Xeloda chemotherapy. He continued on the treatment plan with vari ous doses and schedules with stable submental lymphadenopathy until September 25, 2009. 10. He cros sed over to Vectibix chemotherapy September 25, 2009 through January 29, 2010. Repeat CT scan on February 07, 2010 at [facility] in [place], [place] demonstrated progress ion of disease with [...] at the [facility] in [place], [place], who recommended palliative radiation therapy. He [...] see Dr. Silas German at the [facility] in [place], [place], who noted significant decrease in the size of the submental mass. He continued on al ternative medical regimens until January 01, 2011 when he returned to the [facility] in [place], [place] and was evaluated by Dr. Bryant [...] is a 70 year old man from [facility] on with recurrent squamous cell carcinoma [...] origin. 3. Initial management was at the [facility] in [place] (also known as the [facility] in [place], [place]). Treatments included intravenous high-dose vitamin C. 4. On June 06, 2002, he developed recurrent palpable lymphadenopathy in the left side of the neck that was biopsied and confirmed recurrence of squamous cell carcinoma. 5. Bet en 2001 and 2003, he received intravenous chemotherapy at the [facility] in [place], [place], including insulin potentiation therapy. 6. He traveled to the [facility] where he received additional insulin potentiation therapy and intralesional injection of chemotherapy between 2003 and 2004. 7. He then cross ed over to naturopathic treatment following the Oliver regimen. 8. In December 2007, he develo ped progressive submental lymphadenopathy that was confirmed to be malignant by CT PET scan February 23, 2009. 9. On March 21, 2009, he began therapy the [facility] with sodium phenylbutyrat e, Rapamune, and oral Xeloda chemotherapy. He continued on the treatment plan with vari ous doses and schedules with stable submental lymphadenopathy until September 25, 2009. 10. He crossed over to Vectibix chemotherapy September 25, 2009 through January 29, 2010. Repeat CT sca n on February 07, 2010 at [facility] in [place], [place] demonstrated progression of disease with increase [...] had a consultation with Dr. Lennon at [facility] in [place], [place], who recommended pa lliative radiation therapy. [...] see Dr. Silas German at the [facility] in [place], [place], who noted significant decrease in the size of the submental mass. He con tinued on alternative medical regimens until January 01, 2011 when he returned to the [facility] in [place], [place] and was evaluated by Dr. Eddi [...] is a 70 year old man from [facility] on with recurrent squamous cell carcinoma [...] is a 70 year old man from [facility] on with recurrent squamous cell carcinoma [...] origin. 3. Initial management was at the [facility] in [place] (also known as the [facility] in [place], [place]). Treatments included intravenous high-dose vitamin C. 4. On June 06, 2002, he developed recurrent palpable lymphadenopathy in the left side of the neck that was biopsied and confirmed recurrence of squamous cell carcinoma. 5. Between 17 08 and 2003, he received intravenous chemotherapy at the [facility] in [place], [place], including insulin potentiation therapy. 6. He [...] March 21, 2009, he began therapy the [facility] with sodium phenylbutyrat e, Rapamune, and oral Xeloda chemotherapy. He continued on the treatment plan with vari ous doses and schedules with stable submental lymphadenopathy until September 25, 2009. 10. He cros sed over to Vectibix chemotherapy September 25, 2009 through January 29, 2010. Repeat CT scan on February 07, 2010 at [facility] in [place], [place] demonstrated progress ion of disease with [...] consultation with Dr. Lennon at the [facility] in [place], [place], who recommended palliative radiation therapy. He [...] see Dr. Silas German at the [facility] in [place], [place], who noted significant decrease in the size of the submental mass. He continued on a lternative medical regimens until January 01, 2011 when he returned to the [facility] in [place], [place] and was evaluated by Dr. Bryant [...] is a 70 year old man from [facility] on with recurrent squamous cell carcinoma [...] origin. 3. Initial management was at the [facility] in [place] (also known as the [facility] in [place], [place]). Treatments included intravenous high-dose vitamin C. 4. On June 06, 2002, he developed recurrent palpable lymphadenopathy in the left side of the neck that was biopsied and confirmed recurrence of squamous cell carcinoma. 5. Between 17 08 and 2003, he received intravenous chemotherapy at the [facility] in [place], [place], including insulin potentiation therapy. 6. He [...] March 21, 2009, he began therapy the [facility] with sodium phenylbutyrat e, Rapamune, and oral Xeloda chemotherapy. He continued on the treatment plan with vari ous doses and schedules with stable submental lymphadenopathy until September 25, 2009. 10. He cros sed over to Vectibix chemotherapy September 25, 2009 through January 29, 2010. Repeat CT scan on February 07, 2010 at [facility] in [place], [place] demonstrated progress ion of disease with [...] consultation with Dr. Lennon at the [facility] in [place], [place], who recommended palliative radiation therapy. He [...] see Dr. Silas German at the [facility] in [place], [place], who noted significant decrease in the size of the submental mass. He continued on a lternative medical regimens until January 01, 2011 when he returned to the [facility] in [place], [place] and was evaluated by Dr. Bryant [...] purposes. The patient was aligned to the [facility] center, and a cone beam CT scan was performed. That CT scan was overlaid on his planning CT scan, and appropriate 3-D translational shifts were made to ensure proper alignment. Once the images had been approved by myself, the patient's treatment was delivered. DICTATED BY: Cali Alatorre MD Radiation Oncology JOB #: [id number] [id number] JOB #:[id number] <Electronicall y Signed by Cali Alatorre MD> [...] Cali Alatorre MD Radiation Oncology JOB #: [id number] EXT JOB #:[id number] <Electronicall y Signed by Cali Alatorre MD> 03/14/11 09 Rodger Gu MD - 02/26/2011 1:16 AM PDTPROGRESS NOTE 03/05/2011 IDENTIFYING STATEMENT: Papo Daniel (Fritz) is a 70 year old man from [facility] on with recurrent squamous cell carcinoma [...] is a 70 year old man from [facility] on with recurrent squamous cell carcinoma [...] origin. 3. Initial management was at the [facility] in [place] (also known as the [facility] in [place], [place]). Treatments included intravenous high-dose vitamin C. 4. On June 06, 2002, he developed recurrent palpable lymphadenopathy in the left side of the neck that was biopsied and confirmed recurrence of squamous cell carcinoma. 5. Between 17 08 and 2003, he received intravenous chemotherapy at the [facility] in [place], [place], including insulin potentiation therapy. 6. He [...] March 21, 2009, he began therapy the [facility] with sodium phenylbutyrat e, Rapamune, and oral Xeloda chemotherapy. He continued on the treatment plan with vari ous doses and schedules with stable submental lymphadenopathy until September 25, 2009. 10. He cros sed over to Vectibix chemotherapy September 25, 2009 through January 29, 2010. Repeat CT scan on February 07, 2010 at [facility] in [place], [place] demonstrated progress ion of disease with [...] consultation with Dr. Lennon at the [facility] in [place], [place], who recommended palliative radiation therapy. He [...] see Dr. Silas German at the [facility] in [place], [place], who noted significant decrease in the size of the submental mass. He continued on a lternative medical regimens until January 01, 2011 when he returned to the [facility] in [place], [place] and was evaluated by Dr. Bryant [...] Cali Alatorre MD Radiation Oncology JOB #: [id number] EXT JOB #:[id number] <Electronicall y Signed by Cali Alatorre MD> [...] | | [address] [facility] | | | | | | [id number] | | | | | | | [...] | 11.0 | 6.0 - 17.0 | [facility] | | | | | | ST. [...] [address] | [place] | [phone] | | [facility] | | [address] | | | - LABORATORY | | | | + + + + + | [address] | [address] | [place] | | | [facility] | | [id number] | | | - LABORATORY | [...] + | [facility] | [address] | [place], [place] | [phone] | | [facility] | | [address] | | | - LABORATORY | | | | + + + + + | [facility] | [address] | [place], [place] | | | [facility] | | [id number] | | | - LABORATORY [...] [address] | [place] | [phone] | | [facility] | | [address] | | | - LABORATORY | | | | + + + + + | [facility] | [address] | [place] | | | [facility] | | [address], [facility] | | | - LABORATORY | | [...] OSHEA | | | | | | [facility] | | | | | | [...] + | [facility] | [address] | [place], [place] | [phone] | | [facility] | | [address] | | | - LABORATORY | | | | + + + + + | [facility] | [address] | [place], [place] | | | [facility] | | [address] | | | - LABORATORY | [...] + | [facility] | [address] | [place], [place] | [phone] | | [facility] | | [address] | | | - LABORATORY | | | | + + + + + | [facility] | [address] | [place], [place] | | | [facility] | | [address] [place] [address] | | | - LABORATORY | | [...] + | [facility] | [address] | [place] | [phone] | | [facility] | | [address] | | | - LABORATORY | | | | + + + + + | [facility] | [address] | [place] | | | [facility] | | [address], [facility] | | | - LABORATORY | | [...] + | [facility] | [address] | [place], [place] | [phone] | | [facility] | | [address] | | | - LABORATORY | | | | + + + + + | [facility] | [address] | [place], [place] | | | [facility] | | [facility] [place], [facility] | | | - LABORATORY | | [...] [address] | [place] | [phone] | | [facility] | | [address] | | | - LABORATORY | | | | + + + + + | [facility] | [address] | [place], [place] | | | [facility] | | [address] | | | - LABORATORY | [...] + | [facility] | [address] | [place] | [phone] | | [facility] | | [address] | | | - LABORATORY | | | | + + + + + | [facility] | [address] | [place] | | | [facility] | | [address] | | | - LABORATORY | [...] + | [facility] | [address] | [place], [place] | [phone] | | [facility] | | [address] | | | - LABORATORY | | | | + + + + + | [facility] | [address] | [place], [place] | | | [facility] | | [address] [place] [address] | | | - LABORATORY | | [...] + | [facility] | [address] | [place] | [phone] | | [facility] | | [address] | | | - LABORATORY | | | | + + + + + | [facility] | [address] | [place], [place] | | | [facility] | | [address] | | | - LABORATORY | [...] + | [facility] | [address] | [place], [place] | [phone] | | [facility] | | [address] | | | - LABORATORY | | | | + + + + + | [facility] | [address] | [place] | | | [facility] | | [address] | | | - LABORATORY | [...] + | [facility] | [address] | [place], [place] | [phone] | | [facility] | | [address] | | | - LABORATORY | | | | + + + + + | [facility] | [address] | [place], [place] | | | [facility] | | [facility] [place] | | | - LABORATORY | | [...] + | [facility] | [address] | [place] | [phone] | | [facility] | | [address] | | | - LABORATORY | | | | + + + + + | [facility] | [address] | [place], [place] | | | [facility] | | [address] | | | - LABORATORY | [...] + | [facility] | [address] | [place], [place] | [phone] | | [facility] | | [address] | | | - LABORATORY | | | | + + + + + | [facility] | [address] | [place], [place] | | | [facility] | | [address] | | | - LABORATORY | [...] [address] | [place] | [phone] | | [facility] | | [address] | | | - LABORATORY | | | | + + + + + | [facility] | [address] | [place], [place] | | | [facility] | | [id number] | | | - LABORATORY | | | | + + + + + documented in this encounter Visit Diagnoses Not on filedocumented in this encounter"
--- OUTSIDE RECORDS SUMMARY | ~2019-11-13 | XMS | Encounter Summary ---
Demographics + + + | Address | [address] | | | [place] [address] | + + + | Home Phone | | + + + | Preferred Language | Unknown | + + + | Marital Status | | + + + | Sabianism Affiliation | 1069 | + + + | Race | Unknown | + + + | Ethnic Group | Unknown | + + + Author + + + | Author | [facility] | | | and [place] | + + + | Organization | [facility] | | | and [place] | + + + | Address | Unknown | + + + | Phone | Unavailable | + + + Support + + + + + | Name | Relationship | Address | Phone | + + + + + | Daniel Danile | ECON | [place] | | | | | [address] | | + + + + + | Katherine Daniel | ECON | [address] | | | | | [place] | | | | | [address] | | + + + + + | Katherine Daniel | ECON | [address] | | | | | [place] | | | | | [address] | | + + + + + Care Team Providers + +------+ + | Care Junior Buyer Name | Role | Phone | + [...] + + | 11/08/ | Telephone | [facility] | Susantia Jerryravinder, | Medication Question | | 2019 | | CARDIOLOGY VANESSA | MD Aamir YOON | ([place]) | | | | [address] | [place], [place] | | | | | [place], [place] | [address] | | | | | [address] | | | | | | [phone] | | | +--------+ + + + [...] [place] | | | | | | [address] | | | | | | | | +--------+ + + + + documented as of this encounter Visit Diagnoses Not on filedocumented in this encounter"
--- OUTSIDE RECORDS SUMMARY | ~2019-11-13 | XMS | Encounter Summary ---
Demographics + + + | Address | [address] | | | [place] [address] | + + + | Home Phone | | + + + | Preferred Language | Unknown | + + + | Marital Status | | + + + | Taoism Affiliation | 1069 | + + + | Race | Unknown | + + + | Ethnic Group | Unknown | + + + Author + + + | Author | [facility] | | | and [place] | + + + | Organization | [facility] | | | and [place] | + + + | Address | Unknown | + + + | Phone | Unavailable | + + + Support + + + + + | Name | Relationship | Address | Phone | + + + + + | Daniel Daniel | ECON | [place] | | | | | [address] | | + + + + + | Katherine Daniel | ECON | [address] | | | | | [place] | | | | | [address] | | + + + + + | Katherine Daniel | ECON | [address] | | | | | [place] | | | | | [address] | | + + + + + Care Team Providers + +------+ + | Care Life Sciences Teacher Name | Role | Phone | [...] + + | 08/02/ | Telephone | [facility] | Yasmin Bates, | Device Check | | 2020 | | CARDIOLOGY VANESSA | [address] | | | | | [address] | [place], [place] | | | | | [place], [place] | [address] | | | | | [address] | | | | | | [phone] | | | +--------+ + + + [...] [place] | | | | | | [address] | | | | | | | | +--------+ + + + + documented as of this encounter Visit Diagnoses Not on filedocumented in this encounter"
--- OUTSIDE RECORDS SUMMARY | ~2019-11-13 | XMS | Encounter Summary ---
Demographics + + + | Address | [address] | | | [place] [address] | + + + | Home Phone | | + + + | Preferred Language | Unknown | + + + | Marital Status | | + + + | Presybeterian Affiliation | 1069 | + + + | Race | Unknown | + + + | Ethnic Group | Unknown | + + + Author + + + | Author | [facility] | | | and [place] | + + + | Organization | [facility] | | | and [place] | + + + | Address | Unknown | + + + | Phone | Unavailable | + + + Support + + + + + | Name | Relationship | Address | Phone | + + + + + | Daniel Daniel | ECON | [place] | | | | | [address] | | + + + + + | Katherine Daniel | ECON | [address] | | | | | [place] | | | | | [address] | | + + + + + | Katherine Daniel | ECON | [address] | | | | | [place] | | | | | [address] | | + + + + + Care Team Providers + +------+ + | Care Senior Linux Unix Engineer Name | Role | Phone | + +------+ + PCP | Unavailable | + +------+ + Encounter Details +--------+ + + + + | Date | Type | Department | Care Team | Description | +--------+ + + + + | 06/02/ | Hospital | [facility] | Cali Alatorre, | | | 2010 - | Encounter | MED CTR CANCER | [place] [address] | | | | | [place] [address] | [place] | | | 06/27/ | | [place] | [address] | | | 2010 | | [address] | [phone] | | | | | [phone] | | | +--------+ + + + [...] Cali Alatorre MD Radiation Oncology JOB #: [id number] EXT JOB #:[id number] cc: MD Sander Duncan MD <Electronically Signed [...] [place] | | | | | | [address] | | | | | | | | +--------+ + + + + documented as of this encounter Visit Diagnoses Not on filedocumented in this encounter"
--- OUTSIDE RECORDS SUMMARY | ~2019-11-13 | XMS | Encounter Summary ---
Demographics + + + | Address | [address] | | | [place] [address] | + + + | Home Phone [...] | Author | [facility] | | | and [place] | + + + | Organization | [facility] [...] [place] | | | | | [address] | | + + + + + | Katherine Daniel | ECON | [address] | | | | | [place] | | | | | [address] | | + + + + + | Katherine Daniel | ECON | [address] | | | | | [place] | | | | | [address] | | + + + + + Care Team Providers + +------+ + | Care Cutting Pressman Name | Role | Phone | + +------+ + PCP | Unavailable | + +------+ + Encounter Details +--------+ + + + + | Date | Type | Department | Care Team | Description | +--------+ + + + + | 08/22/ | Hospital | [facility] | | | | 2010 - | Encounter | MED CTR CANCER | | | | | | CENTER [address] | | | | 08/25/ | | [place] | | | | 2010 | | [address] | | | | | | [phone] | | | +--------+ + + + [...] [place] | | | | | | [address] | | | | | | | | +--------+ + + + + documented as of this encounter Visit Diagnoses Not on filedocumented in this encounter"
--- OUTSIDE RECORDS SUMMARY | ~2019-11-13 | XMS | Encounter Summary ---
Demographics + + + | Address | [address] | | | [place] [address] | + + + | Home Phone [...] Author | [facility] | | | and [place] | + + + | Organization | [facility] | | | and [place] | + + + | Address | Unknown | + + + | Phone | Unavailable | + + + Support + + + + + | Name | Relationship | Address | Phone | + + + + + | Daniel Daniel | ECON | [place] | | | | | [address] | | + + + + + | Katherine Daniel | ECON | [address] | | | | | [place] | | | | | [address] | | + + + + + | Katherine Daniel | ECON | [address] | | | | | [place] | | | | | [address] | | + + + + + Care Team Providers + +------+ + | Care Green Inspector Name | Role | Phone | + +------+ + PCP | Unavailable | + +------+ + Encounter Details +--------+ + + + + | Date | Type | Department | Care Team | Description | +--------+ + + + + | 08/22/ | Hospital | [facility] | | | | 2010 - | Encounter | MED CTR CANCER | | | | | | CENTER [address] | | | | 08/25/ | | [place] | | | | 2010 | | [address] | | | | | | [phone] | | | +--------+ + + + [...] [place] | | | | | | [address] | | | | | | | | +--------+ + + + + documented as of this encounter Visit Diagnoses Not on filedocumented in this encounter"
--- OUTSIDE RECORDS SUMMARY | ~2019-11-13 | XMS | Encounter Summary ---
Demographics + + + | Address | [address] | | | [place] [address] | + + + | Home Phone [...] Author | [facility] | | | and [place] | + + + | Organization | [facility] | | | and [place] | + + + | Address | Unknown | + + + | Phone | Unavailable | + + + Support + + + + + | Name | Relationship | Address | Phone | + + + + + | Daniel Daniel | ECON | [place] | | | | | [address] | | + + + + + | Katherine Daniel | ECON | [address] | | | | | [place] | | | | | [address] | | + + + + + | Katherine Daniel | ECON | [address] | | | | | [place] | | | | | [address] | | + + + + + Care Team Providers + +------+ + | Care Automotive Dismantler Name | Role | Phone | + +------+ + PCP | Unavailable | + +------+ + Encounter Details +--------+ + + + + | Date | Type | Department | Care Team | Description | +--------+ + + + + | 01/08/ | Hospital | [facility] | | | | 2010 | Encounter | MED CTR PET SCAN | | | | | | [address] | | | | | | [place] [address] | | | | | | [phone] | | | +--------+ + + + [...] Kendra Nicolas MD Radiation Oncology JOB #: [id number] EXT JOB #:[id number] EDITED: 01/09/2011 15:58 cc: Bryant Navas MD [...] 2019 | Visit | | MD [address] | | | | | | [place] | | | | | | [address] | | | | | | | [...] Performed At | + + + | [facility] Diagnostic [facility] Department | [facility] | | [address] [facility] | [facility] | | WHOLE BODY F-18 FDG | [...] Transcribed Date/Time: 01/10/2011 15:37 | | | Otr Refrigerated Cdl Truck Driver: <Electronically Signed by Girish Dinero, | | | > 01/10/11 1747 | | + + + + + | Procedure Note | + + | Derrick, Rad Conversion - 08/04/2013 3:22 PM [facility] | | Diagnostic Imaging Department [address] [place] [address] | | WHOLE BODY F-18 FDG PET-NONCONTRAST [...] <Electronically Signed by Girish Dinero MD> 01/10/11 9927 | |No abnormal hypermetabolism is seen within [...] 15:08 | |Transcribed Date/Time: 01/10/2011 15:37 | |Otr Refrigerated Cdl Truck Driver: | |<Electronically Signed by Girish Dinero MD> [...]
--- OUTSIDE RECORDS SUMMARY | ~2019-11-13 | XMS | Encounter Summary ---
Demographics + + + | Address | [address] | | | [place] [address] | + + + | Home Phone [...] + + | Author | [facility] | | | and [place] | + + + | Organization | [facility] | | | and [place] | + + + | Address | Unknown | + + + | Phone | Unavailable | + + + Support + + + + + | Name | Relationship | Address | Phone | + + + + + | Daniel Daniel | ECON | [place] | | | | | [address] | | + + + + + | Katherine Daniel | ECON | [address] | | | | | [place] | | | | | [address] | | + + + + + | Katherine Daniel | ECON | [address] | | | | | [place] | | | | | [address] | | + + + + + Care Team Providers + +------+ + | Care Manager Chemical Name | Role | Phone | + [...] | | | | [address] | [place] [address] | | | | | [place] [address] | | | | | | [phone] | | | +--------+ + + + [...] | | | | | [place], [place] | | | | | | [address] | | | | | | | [...]
--- OUTSIDE RECORDS SUMMARY | ~2019-11-13 | XMS | Encounter Summary ---
Demographics + + + | Address | [address] | | | [place] [address] | + + + | Home Phone | | + + + | Preferred Language | Unknown | + + + | Marital Status | | + + + | Quaker Affiliation | 1069 | + + + | Race | Unknown | + + + | Ethnic Group | Unknown | + + + Author + + + | Author | [facility] | | | and [place] | + + + | Organization | [facility] | | | and [place] | + + + | Address | Unknown | + + + | Phone | Unavailable | + + + Support + + + + + | Name | Relationship | Address | Phone | + + + + + | Daniel Daniel | ECON | [place] | | | | | [address] | | + + + + + | Katherine Daniel | ECON | [address] | | | | | [place] | | | | | [address] | | + + + + + | Katherine Daniel | ECON | [address] | | | | | [place] | | | | | [address] | | + + + + + Care Team Providers + +------+ + | Care Epic Application Coordinator Name | Role | Phone | + +------+ + PCP | Unavailable | + +------+ + Encounter Details +--------+ + + + + | Date | Type | Department | Care Team | Description | +--------+ + + + + | 03/31/ | Hospital | [facility] | Cali [place]atorre, | | | 2010 - | Encounter | MED CTR CANCER | [place] [address] | | | | | [place] [address] | [place] | | | 04/27/ | | [place] | [address] | | | 2010 | | [address] | [phone] | | | | | [phone] | | | +--------+ + + + [...] | | | | | [place] | | | | | | [address] | | | | | | | | +--------+ + + + + documented as of this encounter Visit Diagnoses Not on filedocumented in this encounter"
--- OUTSIDE RECORDS SUMMARY | ~2019-11-13 | XMS | Encounter Summary ---
Demographics + + + | Address | [address] | | | [place] [address] | + + + | Home Phone | | + + + | Preferred Language | Unknown | + + + | Marital Status | | + + + | Protestant Affiliation | 1069 | + + + | Race | Unknown | + + + | Ethnic Group | Unknown | + + + Author + + + | Author | and [facility] | | | and [place] | + + + | Organization | and [facility] | | | and [place] | + + + | Address | Unknown | + + + | Phone | Unavailable | + + + Support + + + + + | Name | Relationship | Address | Phone | + + + + + | Daniel Daniel | ECON | [place] | | | | | [address] | | + + + + + | Katherine Daniel | ECON | [address] | | | | | [place] | | | | | [address] | | + + + + + | Katherine Daniel | ECON | [address] | | | | | [place] | | | | | [address] | | + + + + + Care Team Providers + +------+ + | Care Telephone Answerer Name | Role | Phone | + +------+ + PCP | Unavailable | + +------+ + Encounter Details +--------+ + + + + | Date | Type | Department | Care Team | Description | +--------+ + + + + | 09/24/ | Hospital | [facility] | | | | 2010 - | Encounter | MED CTR CANCER | | | | | | CENTER [address] | | | | 09/25/ | | [place] | | | | 2010 | | [address] | | | | | | [phone] | | | +--------+ + + + [...] treatment. He had different, unconventional treatment at [facility] in [place], at [facility] in [place], and also at [facility] in [place]. He was seen here in 07/2010 with [...] Silas German MD Radiation Oncology JOB #: [id number] EXT JOB #:[id number] <Electronicall y Signed by Silas German MD> [...] [place] | | | | | | [address] | | | | | | | | +--------+ + + + + documented as of this encounter Visit Diagnoses Not on filedocumented in this encounter
--- OUTSIDE RECORDS SUMMARY | ~2019-11-13 | XMS | Encounter Summary ---
Demographics + + + | Address | [address] | | | [place] [address] | + + + | Home Phone | | + + + | Preferred Language | Unknown | + + + | Marital Status | | + + + | Yazidi Affiliation | EPI | + + + | Race | White | + + + | Ethnic Group | Not or | + + + Author + + + | Author | [facility] | + + + | Organization | [facility] | + + + | Address | Unknown | + + + | Phone | Unavailable | + + + Support + + +---------+ + | Name | Relationship | Address | Phone | + + +---------+ + | Katherine Daniel | ECON | Unknown | | + + +---------+ + Care Team Providers + +------+ + | Care Hogshead Wrecker Name | Role | Phone | + [...] as of this encounter Progress Notes Interface, Electric Distribution Checker In - 03/22/2006 2:23 AM PDTCLINIC DATE: [...] examination in 1 month. Edis Hatch M.D. [facility] / [id number] / [id number] / [id number] / [id number] signed by Interface, Electric Distribution Checker In at 03/22/2006 2:23 AM PDTdoc umented in this encounter Plan of Treatment Not on filedocumented as of this encounter Visit Diagnoses Not on filedocumented in this encounter"
--- OUTSIDE RECORDS SUMMARY | ~2019-11-13 | XMS | Encounter Summary ---
Demographics + + + | Address | [address] | | | [place] [address] | + + + | Home Phone | | + + + | Preferred Language | Unknown | + + + | Marital Status | | + + + | Faith Affiliation | EPI | + + + [...] Team Providers + +------+ + | Care Post Anesthesia Room Nurse Name | Role | Phone | + +------+ + PCP | Unavailable | + +------+ + Encounter Details +--------+ + + + + | Date | Type | Department | Care Team | Description | +--------+ + + + + | 12/15/ | Transcribed | | Dictation, Other | Transcribed | | 2001 | | | | | +--------+ + [...] as of this encounter Progress Notes Interface, Asbestos Surveyor In - 04/21/2006 3:04 AM [facility] [place] [address], [place] [address] or Department of Otolaryngology - PV01 December 15, 2000 Anand Lackey M.D. [address] [facility] [address] RE: DAVID GOMEZ MR #: [id number] Dear Dr. Lackey: I did have the opportunity to evaluate David Gomez in the Otolaryngology Clinic at [facility] today. The complete details of my interaction with this patient are summarized in the note of my resident, Dr. Marek Peraza. I did perform a complete history and physical examination including history of present illness, past medical history, past surgical history, allergies, medications, family and social history, and review of systems as well as a complete head and neck examination including flexible fiberoptic laryngoscopy. To summarize, Mr. Gomez is a 61-year-old gentleman who was in good health until about 2 weeks ago when he noted a lump in the right side of his neck while shaving. 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 Aside for the presence of the mass, he is basically asymptomatic. He has no throat pain, no otalgia, no change in his voice, no difficulty swallowing, no hemoptysis, and no weight loss. He is a lifelong nonsmoker and drinks only rarely. His past medical history is remarkable for type 1 diabetes mellitus since a young man and hypertension as well as coronary artery disease and some poorly characterized cardiac rhythm disturbance for which he sees a outboard motors experimental mechanic in [facility]. His past surgical history is remarkable for coronary artery bypass grafting in 1988. He has no known drug allergies. Current medications include Vasotec 10 mg twice a day and insulin 6 units of NPH in the morning and 12at night and Regular insulin 3 units 4 times a day. His ECOG performance status is 1. He has a family history of melanoma in his father. 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 On review of systems, his only real complaint is of his neck mass although he does note his diabetes, hypertension, occasional nose bleeds, heart problems, some difficulty swallowing which he thinks may be related to anxiety over his recent diagnosis, occasional chest pain with exertion, and hearing loss, otherwise his review of systems is negative for cardiac, pulmonary, hepatic, renal, neurologic, and musculoskeletal complaints except as noted above. On physical examination, he is a well-developed, well-nourished white male in no apparent distress. Height is 6 feet 1 inch, weight is 178 pounds, blood pressure 134/78, and pulse is 72. His facial contour and facial nerve function are intact bilaterally. His extraocular motions are intact bilaterally. Examination of the ears reveal normal pinna, external canals, and tympanic membranes bilaterally. Intranasally, no lesions are seen. Intraorally, his dentition is in good repair. His tongue and palatal mobility are normal. There are no mucosal lesions noted on the hard palate, upper or lower alveolus, buccal mucosa, floor of mouth, lips, or tongue. In the oropharynx, he has had a previous tonsillectomy. No mucosal lesions are noted. I sprayed his nose using phenylephrine and lidocaine and examined it using a flexible scope. The nasal cavity and nasopharynx are unremarkable. The oropharynx is remarkable for a reddish granular area on the left tongue base. In total, this measures less than 1 cm in size. No other lesions are seen in the oropharynx. The larynx and hypopharynx are easily examined and no evidence of any disease is seen here. Palpation of his neck reveals no adenopathy on the left side. On the right side, he has a 1.5 x 2-cm firm mobile node in the level 2 area. No other adenopathy is palpated. IMPRESSION: Mr. Gomez has a unknown primary head and neck cancer although I am a little suspicious about this area on the left under the tongue base and this certainly needs to be biopsied. I had a long discussion with Mr. Gomez regarding management of this lesion. He is going to get a CT scan today, and we discussed treatment consisting of a right modified neck dissection, panendoscopy, and biopsy if any suspicious lesions, then followed with radiotherapy hopefully directed towards a known primary after the endoscopy. He is eager to proceed with this, and we have decided to perform this surgery late next week. Preoperative evaluation was done today. I will be in contact with his outboard motors experimental mechanic, Dr. Nicholson in [facility] to obtain records on his cardiac status. I would like to thank you for allowing us to be involved in Mr. Gomez's care. If you have any questions, please feel free to contact me, and I will keep you update as to his progress. Sincerely, Edis Hatch M.D. Binitrotoluene Operator Otolaryngology, Head and Neck Surgery [facility] / [id number] / [id number] / [id number] / cc: Austin Espinosa M.D. [address] [place] [address] [id number] signed by Interface, Asbestos Surveyor In at 04/21/2006 3:04 AM PDTdocume nted in this encounter Plan of Treatment Not on filedocumented as of this encounter Visit Diagnoses Not on filedocumented in this encounter"
--- OUTSIDE RECORDS SUMMARY | ~2019-11-13 | XMS | Encounter Summary ---
Demographics + + + | Address | [address] | | | [place] [address] | + + + | Home Phone | | + + + | Preferred Language | Unknown | + + + | Marital Status | | + + + | Pentecostal Affiliation | 1069 | + + + | Race | Unknown | + + + | Ethnic Group | Unknown | + + + Author + + + | Author | [facility] | | | and [place] | + + + | Organization | [facility] | | | and [place] | + + + | Address | Unknown | + + + | Phone | Unavailable | + + + Support + + + + + | Name | Relationship | Address | Phone | + + + + + | Daniel Daniel | ECON | [place] | | | | | [address] | | + + + + + | Katherine Daniel | ECON | [address] | | | | | [place] | | | | | [address] | | + + + + + | Katherine Daniel | ECON | [address] | | | | | [place] | | | | | [address] | | + + + + + Care Team Providers + +------+ + | Care Distribution Specialist Name | Role | Phone | + +------+ + PCP | Unavailable | + +------+ + Encounter Details +--------+ + + + + | Date | Type | Department | Care Team | Description | +--------+ + + + + | 01/28/ | Hospital | [facility] | | | | 2010 - | Encounter | MED CTR OP REHAB | | | | | | [address] | | | | 02/25/ | | [place] [address] | | | | 2010 | | [phone] | | | +--------+ + + + [...] [place] | | | | | | [address] | | | | | | | | +--------+ + + + + documented as of this encounter Visit Diagnoses Not on filedocumented in this encounter"
--- OUTSIDE RECORDS SUMMARY | ~2019-11-13 | XMS | Encounter Summary ---
Demographics + + + | Address | [address] | | | [place] [address] | + + + | Home Phone [...] Team Providers + +------+ + | Care Head Girls Golf Coach Name | Role | Phone | + [...] as of this encounter Progress Notes Interface, Cargo Service Supervisor In - 01/02/2006 3:09 AM PDTCLINIC DATE: [...] will await his response. Edis Hatch M.D. Sports Coordinator, Otolaryngology [facility] / [id number] / [id number] / [id number] / Tdocumented in this encounter Plan of Treatment Not on filedocumented as of this encounter Visit Diagnoses Not on filedocumented in this encounter"
--- OUTSIDE RECORDS SUMMARY | ~2019-11-13 | XMS | Encounter Summary ---
Demographics + + + | Address | [address] | | | [place] [address] | + + + | Home Phone | | + + + | Preferred Language | Unknown | + + + | Marital Status | | + + + | Baptism Affiliation | EPI | + + + | Race | White | + + + | Ethnic Group | Not or | + + + Author + + + | Author | [facility] | + + + | Organization | [facility] | + + + | Address | Unknown | + + + | Phone | Unavailable | + + + Support + + +---------+ + | Name | Relationship | Address | Phone | + + +---------+ + | Katherine Gomez | ECON | Unknown | | + + +---------+ + Care Team Providers + +------+ + | Care Gear Lapper Name | Role | Phone | + [...] | | | | | [place], | | | | | | [place] [address] | | | +--------+ + + + [...] | | | | Patient: DAVID GOMEZ [facility] Rec: [id number] Sex M Bdate: 1940 | | Date/Time Data | | Entered Into [facility] | | Anesth PostOp | | Surgery Date [id number] 12/24/00 11:34 | | Anesthesiologist ROMERO LUNA [...]
--- OUTSIDE RECORDS SUMMARY | ~2019-11-13 | XMS | Encounter Summary ---
Demographics + + + | Address | [address] | | | [place] [address] | + + + | Home Phone [...] + | Author | [facility] | | | and [place] | + + + | Organization | [facility] | | | and [place] | + + + | Address | Unknown | + + + | Phone | Unavailable | + + + Support + + + + + | Name | Relationship | Address | Phone | + + + + + | Daniel Daniel | ECON | [place] | | | | | [address] | | + + + + + | Katherine Daniel | ECON | [address] | | | | | [place] | | | | | [address] | | + + + + + | Katherine Daniel | ECON | [address] | | | | | [place] | | | | | [address] | | + + + + + Care Team Providers + +------+ + | Care Patient Attendant Name | Role | Phone | + [...] anemia | | 2018 | | [facility] | MD Rodger [address] | (Primary Dx) | | | | [facility] [address] | | | | | [address] | [place] [address] | | | | | [place] [address] | [phone] | | | | | [phone] | | | +--------+ + + + [...] | | | | | [place], [place] | | | | | | [address] | | | | | | | [...]
--- OUTSIDE RECORDS SUMMARY | ~2019-11-13 | XMS | Encounter Summary ---
Demographics + + + | Address | [address] | | | [place] [address] | + + + | Home Phone | | + + + | Preferred Language | Unknown | + + + | Marital Status | | + + + | Mosque Affiliation | 1069 | + + + | Race | Unknown | + + + | Ethnic Group | Unknown | + + + Author + + + | Author | [facility] | | | and [place] | + + + | Organization | [facility] | | | and [place] | + + + | Address | Unknown | + + + | Phone | Unavailable | + + + Support + + + + + | Name | Relationship | Address | Phone | + + + + + | Daniel Daniel | ECON | [place] | | | | | [address] | | + + + + + | Katherine Daniel | ECON | [address] | | | | | [place] | | | | | [address] | | + + + + + | Katherine Daniel | ECON | [address] | | | | | [place] | | | | | [address] | | + + + + + Care Team Providers + +------+ + | Care Combination Technician Name | Role | Phone | + +------+ + PCP | Unavailable | + +------+ + Encounter Details +--------+ + + + + | Date | Type | Department | Care Team | Description | +--------+ + + + + | 02/12/ | Hospital | [facility] | Riccardo, | | | 2009 - | Encounter | [facility] | Rodger Powell MD [address] | | | | | [place] [address] | [facility] | | | 02/25/ | | [place], [place] | [place] [address] | | | 2009 | | [address] | [phone] | | | | | [phone] | | | +--------+ + + + [...] | | | | | [place] | | | | | | [address] | | | | | | | | +--------+ + + + + documented as of this encounter Visit Diagnoses Not on filedocumented in this encounter"
--- OUTSIDE RECORDS SUMMARY | ~2019-11-13 | XMS | Encounter Summary ---
Demographics + + + | Address | [address] | | | [place] [address] | + + + | Home Phone | | + + + | Preferred Language | Unknown | + + + | Marital Status | | + + + | Methodist Affiliation | 1069 | + + + | Race | Unknown | + + + | Ethnic Group | Unknown | + + + Author + + + | Author | [facility] | | | and [place] | + + + | Organization | [facility] | [...] [place] | | | | | [address] | | + + + + + | Katherine Daniel | ECON | [address] | | | | | [place] | | | | | [address] | | + + + + + | Katherine Daniel | ECON | [address] | | | | | [place] | | | | | [address] | | + + + + + Care Team Providers + +------+ + | Care Roving Department End Finder Name | Role | Phone | + [...] + + | 08/02/ | Telephone | [facility] | Yasmin Bates, | Device Check | | 2020 | | CARDIOLOGY VANESSA | [address] | | | | | [address] | [place], [place] | | | | | [place], [place] | [address] | | | | | [address] | | | | | | [phone] | | | +--------+ + + + [...] [place] | | | | | | [address] | | | | | | | | +--------+ + + + + documented as of this encounter Visit Diagnoses Not on filedocumented in this encounter"
--- OUTSIDE RECORDS SUMMARY | ~2019-11-13 | XMS | Encounter Summary ---
Demographics + + + | Address | [address] | | | [place] [address] | + + + | Home Phone [...] Author | [facility] | | | and [place] | + + + | Organization | [facility] | | | and [place] | + + + | Address | Unknown | + + + | Phone | Unavailable | + + + Support + + + + + | Name | Relationship | Address | Phone | + + + + + | Daniel Daniel | ECON | [place] | | | | | [address] | | + + + + + | Katherine Daniel | ECON | [address] | | | | | [place] | | | | | [address] | | + + + + + | Katherine Daniel | ECON | [address] | | | | | [place] | | | | | [address] | | + + + + + Care Team Providers + +------+ + | Care Radio Board Operator Name | Role | Phone | [...] Unknown | (HCC) | | | | [place], [place] | [phone] | | | | | [address] | | | | | | [phone] | | | +--------+ + + + [...] | | | | | [place] | | | | | | [id number] | | | | | | | | +--------+ + + + + documented as of this encounter Visit Diagnoses + + | Diagnosis | + + | Secondary and unspecified malignant neoplasm of lymph nodes of head, face, and neck | + + documented in this encounter"
--- OUTSIDE RECORDS SUMMARY | ~2019-11-13 | XMS | Encounter Summary ---
Demographics + + + | Address | [address] | | | [place] [address] | + + + | Home Phone | | + + + | Preferred Language | Unknown | + + + | Marital Status | | + + + | Anglican Affiliation | 1069 | + + + | Race | Unknown | + + + | Ethnic Group | Unknown | + + + Author + + + | Author | [facility] | | | and [place] | + + + | Organization | [facility] | | | and [place] | + + + | Address | Unknown | + + + | Phone | Unavailable | + + + Support + + + + + | Name | Relationship | Address | Phone | + + + + + | Daniel Daniel | ECON | [place] | | | | | [address] | | + + + + + | Katherine Daniel | ECON | [address] | | | | | [place] | | | | | [address] | | + + + + + | Katherine Daniel | ECON | [address] | | | | | [place] | | | | | [address] | | + + + + + Care Team Providers + +------+ + | Care Cephalometric Tracer Name | Role | Phone | + [...] Unknown | (HCC) | | | | [place], [place] | [phone] | | | | | [address] | | | | | | [phone] | | | +--------+ + + + [...] | | | | | [place] | | | | | | [address] | | | | | | | | +--------+ + + + + documented as of this encounter Visit Diagnoses + + | Diagnosis | + + | Secondary and unspecified malignant neoplasm of lymph nodes of head, face, and neck | + + documented in this encounter"
--- OUTSIDE RECORDS SUMMARY | ~2019-11-13 | XMS | Encounter Summary ---
Demographics + + + | Address | [address] | | | [place] [address] | + + + | Home Phone | | + + + | Preferred Language | Unknown | + + + | Marital Status | | + + + | Scientology Affiliation | 1069 | + + + | Race | Unknown | + + + | Ethnic Group | Unknown | + + + Author + + + | Author | [facility] | | | and [place] | + + + | Organization | [facility] | [...] [place] | | | | | [address] | | + + + + + | Katherine Daniel | ECON | [address] | | | | | [place] | | | | | [address] | | + + + + + | Katherine Daniel | ECON | [address] | | | | | [place] | | | | | [address] | | + + + + + Care Team Providers + +------+ + | Care Dust Mill Operator Name | Role | Phone | [...] | 2018 | | [address] | [address] | | | | | [address] | [place] [address] [place], | | | | | [place], [place] | [place] [address] | | | | | [address] | [phone] | | | | | [phone] | | | +--------+ + + + [...] | | | | | [place] | | | | | | [address] | | | | | | | [...] TR Vmax: 3.16 m/s | | | Facilities Clerk: Authenticated by: Yasmin Bates Report Date/Time: | [...] cmLVIDd: 5.83 cmLVPWd: 1.00 cmLVOT Area: 4.21 [id number] Diam: 2.31 | | cm%FS: 14.30 %EF(Teich): [...] mlLAESV Index (A-L): 67.12 ml/m2LAAs A2C: 29.66 [id number] A-L A2C: 125.88 | | mlLALs A2C: 5.93 cmLAAs A4C: 31.63 [id number] A-L A4C: 126.90 mlLALs A4C: 6.69 | | cmRAAs: 29.47 pi4FVHHO A-L: 109.74 mlRAESV MOD: 106.61 mlRALs: 6.72 cmTAPSE: | | 2.05 cmAV maxP.15 mmHgAV meanP.87 mmHgAV Vmax: 2.58 m/Naima Vmean: 1.86 | | m/Naima VTI: 60.10 cmAVA Vmax: 1.01 cm2AVA (VTI): 0.85 [id number] Vmax: 0.00 | | cm2/m2AVAI (VTI): 0.00 [...] 0.93 m/sMV VTI: 43.74 cmMVA (VTI): 1.17 mo0Cgokoo | | e': 0.06 m/sSeptal E/e': 27.97Lateral e': 0.08 m/sLateral E/e': 19.98RAP: 20 | | mmHgRVSP: 60.05 mmHgTR maxP.05 mmHgTR Vmax: 3.16 m/s | | Facilities Clerk:Authenticated by: Yasmin More Date/Time: 10-14-2017 13:58:4 | [...] |TR Vmax: 3.16 m/s | | | |Facilities Clerk: | |Authenticated by: Yasmin Bates | |Report [...]
--- OUTSIDE RECORDS SUMMARY | ~2019-11-13 | XMS | Encounter Summary ---
Demographics + + + | Address | [address] | | | [place] [address] | + + + | Home Phone | | + + + | Preferred Language | Unknown | + + + | Marital Status | | + + + | Adventism Affiliation | 1069 | + + + | Race | Unknown | + + + | Ethnic Group | Unknown | + + + Author + + + | Author | [facility] | | | and [place] | + + + | Organization | [facility] | | | and [place] | + + + | Address | Unknown | + + + | Phone | Unavailable | + + + Support + + + + + | Name | Relationship | Address | Phone | + + + + + | Daniel Daniel | ECON | [place] | | | | | [address] | | + + + + + | Katherine Daniel | ECON | [address] | | | | | [place] | | | | | [address] | | + + + + + | Katherine Daniel | ECON | [address] | | | | | [place] | | | | | [address] | | + + + + + Care Team Providers + +------+ + | Care Upholsterer Inside Name | Role | Phone | + [...] | 2017 | | [address] | [address] | | | | | [address] | [place], | | | | | [place], [place] | [place] [address] | | | | | [address] | [phone] | | | | | [phone] | | | +--------+ + + + [...] | | | | | [place] | | | | | | [address] | | | | | | | [...] TR maxP.60 mmHg TR Vmax: 3.30 m/s Block Operator: AMBROSE | | | Authenticated by: Yasmin [...] cmLVIDd: 5.54 cmLVPWd: 1.25 cmLVOT Area: 3.80 [id number] Diam: 2.20 | | cm%FS: 11.30 %EF(Teich): [...] | Index (A-L): 71.21 ml/m2LAAs A2C: 34.01 [id number] A-L A2C: 146.13 mlLALs A2C: | | 6.72 cmLAAs A4C: 33.15 bt4LDRTT A-L A4C: 130.21 mlLALs A4C: 7.16 cmRAAs: 29.50 | | [id number] A-L: 109.45 mlRAESV MOD: 109.04 mlRALs: 6.82 cmTAPSE: 2.15 cmAV maxPG: | | 19.36 mmHgAV meanP.30 mmHgAV Vmax: 2.19 m/Naima Vmean: 1.59 m/Naima VTI: | | 49.97 cmAVA Vmax: 1.20 cm2AVA (VTI): 1.12 yk7PVOA Vmax: 0.00 cm2/m2AVAI (VTI): | | 0.00 cm2/m2LVOT maxP.93 mmHgLVOT meanP.04 mmHgLVSI Dopp: 28.17 ml/m2LVSV | | Dopp: 56.35 mlLVOT Vmax: 0.69 m/sLVOT Vmean: 0.48 m/sLVOT VTI: 14.81 cmMV maxPG: | | 17.24 mmHgMV meanP.94 mmHgMV Vmax: 2.07 m/sMV Vmean: 0.97 m/sMV VTI: | | 59.72 cmMVA (VTI): 0.94 de6Dpuved e': 0.06 m/sLateral e': 0.05 m/sSystemic VTI: | | 116.52 cmRAP: 20 mmHgRVSP: 63.60 mmHgTR maxP.60 mmHgTR Vmax: 3.30 m/s | | Block Operator: Beticated by: Yasmin More Date/Time: 04-08-2017 18:16:40 [...] |TR Vmax: 3.30 m/s | | | |Block Operator: AMBROSE | |Authenticated by: Yasmin Bates | [...]
--- OUTSIDE RECORDS SUMMARY | ~2019-11-13 | XMS | Encounter Summary ---
Demographics + + + | Address | [address] | | | [place] [address] | + + + | Home Phone | | + + + | Preferred Language | Unknown | + + + | Marital Status | | + + + | Orthodoxy Affiliation | EPI | + + + [...] as of this encounter Progress Notes Interface, Transportation Specialist In - 03/30/2006 3:00 AM PDTCLINIC DATE: 05/03/2001 OTOLARYNGOLOGY CLINIC SUBJECTIVE: Mr. Daniel returns for 1 month followup visit, he is doing well and has no complaints. He did see some sort of holistic medicine practitioner in [place] who did a test called amass test, [...] visit in 1 month. Edis Hatch M.D. Manager Planning of Otolaryngology [facility] / [id number] / [id number] / [id number] / cc: Anand Lackey M.D. [address] [place] [address] [id number] signed by Interface, Transportation Specialist In at 03/30/2006 3:00 AM PDTdoc umented in this encounter Plan of Treatment Not on filedocumented as of this encounter Visit Diagnoses Not on filedocumented in this encounter"
--- OUTSIDE RECORDS SUMMARY | ~2019-11-13 | XMS | Encounter Summary ---
Demographics + + + | Address | [address] | | | [place] [address] | + + + | Home Phone [...] | Author | [facility] | | | and [place] | + + + | Organization | [facility] | | | and [place] | + + + | Address | Unknown | + + + | Phone | Unavailable | + + + Support + + + + + | Name | Relationship | Address | Phone | + + + + + | Daniel Daniel | ECON | [place] | | | | | [address] | | + + + + + | Katherine Daniel | ECON | [address] | | | | | [place] | | | | | [address] | | + + + + + | Katherine Daniel | ECON | [address] | | | | | [place] | | | | | [address] | | + + + + + Care Team Providers + +------+ + | Care Telecommunications Cable Jointer Name | Role | Phone | + [...] + + | 05/11/ | Telephone | [facility] | Yasmin Bates, | Advice Only | | 2019 | | [address] | [address] | | | | | [address] | [place], [place] | | | | | [place], [place] | [address] | | | | | [address] | | | | | | [phone] | | | +--------+ + + + [...] [place] | | | | | | [address] | | | | | | | | +--------+ + + + + documented as of this encounter Visit Diagnoses Not on filedocumented in this encounter"
--- OUTSIDE RECORDS SUMMARY | ~2019-11-13 | XMS | Encounter Summary ---
Demographics + + + | Address | [address] | | | [place] [address] | + + + | Home Phone | | + + + | Preferred Language | Unknown | + + + | Marital Status | | + + + | Restorationist Affiliation | 1069 | + + + | Race | Unknown | + + + | Ethnic Group | Unknown | + + + Author + + + | Author | [facility] | | | and [place] | + + + | Organization | [facility] | | | and [place] | + + + | Address | Unknown | + + + | Phone | Unavailable | + + + Support + + + + + | Name | Relationship | Address | Phone | + + + + + | Daniel Daniel | ECON | [place] | | | | | [address] | | + + + + + | Katherine Daniel | ECON | [address] | | | | | [place] | | | | | [address] | | + + + + + | Katherine Daniel | ECON | [address] | | | | | [place] | | | | | [address] | | + + + + + Care Team Providers + +------+ + | Care Letterpress Printing Machinist Name | Role | Phone [...] 2017 | | [facility] ALARM ADJUSTER | | | | | [facility] [address] | | | | | | [address] | | | | | | [place] [address] | | | | | | [phone] | | | +--------+ + + + [...] [place] | | | | | | [address] | | | | | | | | +--------+ + + + + documented as of this encounter Visit Diagnoses Not on filedocumented in this encounter"
--- OUTSIDE RECORDS SUMMARY | ~2019-11-13 | XMS | Encounter Summary ---
Demographics + + + | Address | [address] | | | [place] [address] | + + + | Home Phone | | + + + | Preferred Language | Unknown | + + + | Marital Status | | + + + | Taoism Affiliation | EPI | + + + [...] Team Providers + +------+ + | Care Systems Specialist Name | Role | Phone | [...] as of this encounter Progress Notes Interface, Physical Science Technician In - 04/21/2006 3:04 AM PDTCLINIC DATE: 12/14/2000 OTOLARYNGOLOGY CLINIC REFERRING PHYSICIAN: Anand Lackey M.D. HISTORY OF PRESENT ILLNESS: Mr. Daniel is a 60-year-old gentleman who is referred here by Dr. Lackey for evaluation of right neck mass. The patient noticed this approximately 2 weeks ago while he was shaving. He was initially evaluated by Dr. Lackey who is a friend of his and placed on antibiotics. These did not improve the situation, and he had an FNA done 1 week ago. His results came back yesterday and were positive for squamous cell carcinoma. Dr. Lackey had found no lesions on the exam, and he was sent here for evaluation. At this time, the patient does feel some mild dysphasia with a lump in his throat, but he has been able to eat any foods he wants. He denies any odynophagia, no trismus, and otalgia. He has not used tobacco in the past. He has no significant alcohol use. He does drink some alcohol occasionally. He denies any reflux. He does have coronary artery disease and does have occasional chest pain with exertion, although this is no consistent. He has used nitroglycerin once in the last 6 months. PAST MEDICAL HISTORY 1. Hypertension. 2. History of epistaxis. 3. Chronic sinusitis. 4. Coronary artery disease. Status post 2 vessel bypass in 1988. He was recently evaluated by his digital press operator and had a stress test performed. 5. Insulin dependent diabetes mellitus since 25-years of age. PAST SURGICAL HISTORY 1. Status post tonsillectomy as a child. 2. Status post 2 vessel bypass in 1988. SOCIAL HISTORY: He is . He lives in [place], [place]. 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 He has 2 sons who are 25 and 30 years old. FAMILY HISTORY: He had a father who had melanoma of the skin and mother with congestive heart failure. REVIEW OF SYSTEMS: Negative except as described above. OBJECTIVE: VITAL SIGNS: Height 6 feet 1 inch, weight 178 pounds, blood pressure 134/78, and pulse 72. GENERAL: Mr. Daniel is somewhat anxious appearing gentleman who is in no acute distress. HEENT: Face and scalp: No asymmetry or lesions. Eyes: No chemosis, no proptosis. Extraocular muscles are intact. Nose: No external deformity. On anterior rhinoscopy, the septum is midline. There is no mucopus or polyps seen. Oral cavity: His dentitions in good repair. There are no gingival, labial, buccal, and mucosal lesions. Base of the tongue is normal to palpation as is the floor of mouth. Ears: Bilateral tympanic membranes are clear without evidence of erythema or effusion. The external and internal canals are clear. NECK: There is a 1.5-cm lesion in the right intrajugular chain level on the border between 2 and 3. There are no other palpable lesions. Thyroid palpates normal. NEUROLOGIC: Cranial nerves 2 through 12 are intact. PROCEDURE NOTE PROCEDURE: Flexible fiberoptic nasopharyngoscopy. ANESTHESIA: Lidocaine 4%. After administration of topical anesthetic, the nasopharyngoscope was passed down the left nasal cavity. The bowel of the eustachian tube orifice is patent. The nasopharynx was normal. The base of tongue, vallecula, and pyriform sinuses were without lesions. There was a small area of erythema on the base of the tongue on the left side of the midline. There are no bruits seen, and the supraglottic larynx was normal as well as the true vocal chords which were mobile bilaterally. Pathology was reviewed which showed squamous cell carcinoma of the biopsied lesion. 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 There is a lesion identified on the base of the tongue. It could possibly be the origin of his metastasis, however, this is unclear. We will proceed with CT scan today and then he will undergo panendoscopy with biopsies and then a right selective neck dissection. Full PARQ conference was held. The procedure was described, alternatives were discussed. Risks including but not limited to numbness, pain, chance of infection, shoulder weakness were discussed. His questions were answered and consent was signed. He will return next week for a surgery and return to PAT Clinic prior. We will contact his digital press operator who ensure that he is cleared for this procedure and we will have him fax over his records including the EKG and stress test. This patient was seen with Dr. Edis Hatch in this clinic. Marek Peraza M.D. Resident Edis Hatch M.D. [facility] / [id number] / [id number] / [id number] / [id number] signed by Interface, Physical Science Technician In at 04/21/2006 3:04 AM PDTdocume nted in this encounter Plan of Treatment Not on filedocumented as of this encounter Visit Diagnoses Not on filedocumented in this encounter"
--- OUTSIDE RECORDS SUMMARY | ~2019-11-13 | XMS | Encounter Summary ---
Demographics + + + | Address | [address] | | | [place] [address] | + + + | Home Phone | | + + + | Preferred Language | Unknown | + + + | Marital Status | | + + + | Latter Day Affiliation | 1069 | + + + | Race | Unknown | + + + | Ethnic Group | Unknown | + + + Author + + + | Author | [facility] | | | and [place] | + + + | Organization | [facility] | | | and [place] | + + + | Address | Unknown | + + + | Phone | Unavailable | + + + Support + + + + + | Name | Relationship | Address | Phone | + + + + + | Daniel Daniel | ECON | [place] | | | | | [address] | | + + + + + | Katherine Daniel | ECON | [address] | | | | | [place] | | | | | [address] | | + + + + + | Katherine Daniel | ECON | [address] | | | | | [place] | | | | | [address] | | + + + + + Care Team Providers + +------+ + | Care Sales Representative Groceries Name | Role | Phone | + +------+ + PCP | Unavailable | + +------+ + Encounter Details +--------+ + + + + | Date | Type | Department | Care Team | Description | +--------+ + + + + | 01/28/ | Hospital | [facility] | | | | 2010 - | Encounter | [facility] | | | | | | [address] | | | | 02/25/ | | [place] [address] | | | | 2010 | | [phone] | | | +--------+ + + + [...] [place] | | | | | | [address] | | | | | | | | +--------+ + + + + documented as of this encounter Visit Diagnoses Not on filedocumented in this encounter"
--- OUTSIDE RECORDS SUMMARY | ~2019-11-13 | XMS | Encounter Summary ---
Demographics + + + | Address | [address] | | | [place] [address] | + + + | Home Phone | | + + + | Preferred Language | Unknown | + + + | Marital Status | | + + + | Anabaptist Affiliation | EPI | + + + | Race | White | + + + | Ethnic Group | Not or | + + + Author + + + | Author | [facility] | + + + | Organization | [facility] | + + + | Address | Unknown | + + + | Phone | Unavailable | + + + Support + + +---------+ + | Name | Relationship | Address | Phone | + + +---------+ + | Katherine Daniel | ECON | Unknown | | + + +---------+ + Care Team Providers + +------+ + | Care Lumber Tying Machine Operator Name | Role | Phone [...] as of this encounter Progress Notes Interface, Coin Purse Assembler In - 04/21/2006 3:04 AM PDTCLINIC DATE: [...] 1988. He was recently evaluated by his linux network administrator and had a stress test performed. 5. Insulin dependent diabetes mellitus since 25-years of age. PAST SURGICAL HISTORY 1. Status post tonsillectomy as a child. 2. Status post 2 vessel bypass in 1988. SOCIAL HISTORY: He is . He lives in [place], [place]. 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 He has 2 sons who are 25 [...] PAT Clinic prior. We will contact his linux network administrator who ensure that he is cleared for this procedure and we will have him fax over his records including the EKG and stress test. This patient was seen with Dr. Edis Hatch in this clinic. Marek Peraza M.D. Resident Edis Hatch M.D. [facility] / [id number] / [id number] / [id number] / [id number] signed by Interface, Coin Purse Assembler In at 04/21/2006 3:04 AM PDTdocume nted in this encounter Plan of Treatment Not on filedocumented as of this encounter Visit Diagnoses Not on filedocumented in this encounter"
--- OUTSIDE RECORDS SUMMARY | ~2019-11-13 | XMS | Encounter Summary ---
Demographics + + + | Address | [address] | | | [place] [address] | + + + | Home Phone | | + + + | Preferred Language | Unknown | + + + | Marital Status | | + + + | Orthodox Affiliation | 1069 | + + + | Race | Unknown | + + + | Ethnic Group | Unknown | + + + Author + + + | Author | [facility] | | | and [place] | + + + | Organization | [facility] | | | and [place] | + + + | Address | Unknown | + + + | Phone | Unavailable | + + + Support + + + + + | Name | Relationship | Address | Phone | + + + + + | Daniel Daniel | ECON | [place] | | | | | [address] | | + + + + + | Katherine Daniel | ECON | [address] | | | | | [place] | | | | | [address] | | + + + + + | Katherine Daniel | ECON | [address] | | | | | [place] | | | | | [address] | | + + + + + Care Team Providers + +------+ + | Care Manager Stone Name | Role | Phone | + [...] | Radiology | Diagnoses | Jana | [facility] | | n not | | | Ischemic | MD Des | [address] | | Required | | | cardiomyopat | [address] | | | | | hy | [address] | [place], [place] | | | | | Non-rheumati | [place] | [address] | | | | | c mitral | [place], [place] | Phone: | | | | | regurgitatio | [address] | [phone] | | | | | n Chronic | Phone: | Fax: | | | | | diastolic | [phone] | [phone] | | | | | congestive | Fax: | | | | | | heart | [phone] | | | | | | failure | | | | | | | ([facility]) | | | | | | | Coronary | | | | | | | artery | | | | | | | disease of | | | | | | | bypass graft | | | | | | | of mcgrath | | | | | | | [...] + + | 11/07/ | Office | [facility] | [place], | 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 Previously HPI. Recently evaluated in ER, [place] due to increased weight, lower ext edema. [...] Has been following up with Cardiology in [facility] for aortic valve stenosis. 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
--- OUTSIDE RECORDS SUMMARY | ~2019-11-13 | XMS | Encounter Summary ---
Demographics + + + | Address | [address] | | | [place] [address] | + + + | Home Phone | | + + + | Preferred Language | Unknown | + + + | Marital Status | | + + + | Worship Affiliation | EPI | + + + [...] Team Providers + +------+ + | Care Cargo Router Name | Role | Phone | + [...] as of this encounter Progress Notes Interface, French Folding Machine Operator In - 04/21/2006 3:04 AM PDTCLINIC DATE: [...] 1988. He was recently evaluated by his cork compounder and had a stress test performed. 5. Insulin dependent diabetes mellitus since 25-years of age. PAST SURGICAL HISTORY 1. Status post tonsillectomy as a child. 2. Status post 2 vessel bypass in 1988. SOCIAL HISTORY: He is . He lives in [place], [place]. 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 He has 2 sons who are 25 [...] PAT Clinic prior. We will contact his cork compounder who ensure that he is cleared for this procedure and we will have him fax over his records including the EKG and stress test. This patient was seen with Dr. Edis Hatch in this clinic. Marek Peraza M.D. Resident Edis Hatch M.D. [facility] / [id number] / [id number] / [id number] / [id number] signed by Interface, French Folding Machine Operator In at 04/21/2006 3:04 AM PDTdocume nted in this encounter Plan of Treatment Not on filedocumented as of this encounter Visit Diagnoses Not on filedocumented in this encounter"
--- OUTSIDE RECORDS SUMMARY | ~2019-11-13 | XMS | Encounter Summary ---
Demographics + + + | Address | [address] | | | [place] [address] | + + + | Home Phone | | + + + | Preferred Language | Unknown | + + + | Marital Status | | + + + | Christian Affiliation | EPI | + + + [...] Team Providers + +------+ + | Care Retail Marketing Manager Name | Role | Phone | [...] as of this encounter Progress Notes Interface, Pneumatic Hoist Operator In - 04/07/2006 3:12 AM PDTCLINIC DATE: [...] visit in 1 month. Edis Hatch M.D. Sock Knitter, Otolaryngology [facility] / [id number] / [id number] / [id number] / [id number] cc: Anand Lackey M.D. [address] [facility]. [place] [address] Austin Espinosa M.D. [address] [place] [address] [id number] signed by Interface, Pneumatic Hoist Operator In at 04/07/2006 3:12 AM PDTdocume nted in this encounter Plan of Treatment Not on filedocumented as of this encounter Visit Diagnoses Not on filedocumented in this encounter"
--- OUTSIDE RECORDS SUMMARY | ~2019-11-13 | XMS | Encounter Summary ---
Demographics + + + | Address | [address] | | | [place] [address] | + + + | Home Phone [...] | Author | [facility] | | | and [place] | + + + | Organization | [facility] | | | and [place] | + + + | Address | Unknown | + + + | Phone | Unavailable | + + + Support + + + + + | Name | Relationship | Address | Phone | + + + + + | Daniel Daniel | ECON | [place] | | | | | [address] | | + + + + + | Katherine Daniel | ECON | [address] | | | | | [place] | | | | | [address] | | + + + + + | Katherine Daniel | ECON | [address] | | | | | [place] | | | | | [address] | | + + + + + Care Team Providers + +------+ + | Care Senior Oracle Applications Developer Name | Role | Phone | [...] | | | | [address] | [place] [address] | | | | | [place] [address] | | | | | | [phone] | | | +--------+ + + + [...] | | | | | [place], [place] | | | | | | [address] | | | | | | | [...]
--- OUTSIDE RECORDS SUMMARY | ~2019-11-13 | XMS | Encounter Summary ---
Demographics + + + | Address | [address] | | | [place] [address] | + + + | Home Phone [...] Team Providers + +------+ + | Care Deputy Court Name | Role | Phone | + [...] as of this encounter Progress Notes Interface, Children'S Librarian In - 04/17/2006 1:00 AM PDTCLINIC DATE: 01/04/2001 OTOLARYNGOLOGY CLINIC HISTORY OF PRESENT ILLNESS: Mr. 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 He did have his drain removed in [place] by Dr. Lackey last week. He is [...] me in one month. Edis Hatch M.D. [facility] / [id number] / [id number] / [id number] / cc: AMBER LACKEY M.D. [address] [place] [address] DOROTEO GOMEZ M.D. [address] [place] [id number] signed by Interface, Children'S Librarian In at 04/17/2006 1:00 AM PDTdocume nted in this encounter Plan of Treatment Not on filedocumented as of this encounter Visit Diagnoses Not on filedocumented in this encounter"
--- OUTSIDE RECORDS SUMMARY | ~2019-11-13 | XMS | Encounter Summary ---
Demographics + + + | Address | [address] | | | [place] [address] | + + + | Home Phone | | + + + | Preferred Language | Unknown | + + + | Marital Status | | + + + | Restorationism Affiliation | 1069 | + + + | Race | Unknown | + + + | Ethnic Group | Unknown | + + + Author + + + | Author | [facility] | | | and [place] | + + + | Organization | [facility] | | | and [place] | + + + | Address | Unknown | + + + | Phone | Unavailable | + + + Support + + + + + | Name | Relationship | Address | Phone | + + + + + | Daniel Daniel | ECON | [place] | | | | | [address] | | + + + + + | Katherine Daniel | ECON | [address] | | | | | [place] | | | | | [address] | | + + + + + | Katherine Daniel | ECON | [address] | | | | | [place] | | | | | [address] | | + + + + + Care Team Providers + +------+ + | Care Market Research Manager Name | Role | Phone | + +------+ + PCP | Unavailable | + +------+ + Encounter Details +--------+ + + + + | Date | Type | Department | Care Team | Description | +--------+ + + + + | 02/12/ | Hospital | [facility] | Riccardo, | | | 2009 - | Encounter | [facility] | Rodger Powell MD [address] | | | | | [place] [address] | [facility] | | | 02/25/ | | [place], [place] | [place] [address] | | | 2009 | | [address] | [phone] | | | | | [phone] | | | +--------+ + + + [...] | | | | | [place] | | | | | | [address] | | | | | | | | +--------+ + + + + documented as of this encounter Visit Diagnoses Not on filedocumented in this encounter"
--- OUTSIDE RECORDS SUMMARY | ~2019-11-13 | XMS | Encounter Summary ---
Demographics + + + | Address | [address] | | | [place] [address] | + + + | Home Phone [...] + | Author | [facility] | | | and [place] | + + + | Organization | [facility] | | | and [place] | + + + | Address | Unknown | + + + | Phone | Unavailable | + + + Support + + + + + | Name | Relationship | Address | Phone | + + + + + | Daniel Daniel | ECON | [place] | | | | | [address] | | + + + + + | Katherine Daniel | ECON | [address] | | | | | [place] | | | | | [address] | | + + + + + | Katherine Daniel | ECON | [address] | | | | | [place] | | | | | [address] | | + + + + + Care Team Providers + +------+ + | Care Commissions Specialist Name | Role | Phone | [...] + + | 11/08/ | Telephone | [facility] | Susantia Jerryravinder, | Medication Question | | 2019 | | CARDIOLOGY VANESSA | MD Aamir YOON | (Torsem[place]) | | | | [address] | [place], [place] | | | | | [place], [place] | [address] | | | | | [address] | | | | | | [phone] | | | +--------+ + + + [...] [place] | | | | | | [address] | | | | | | | | +--------+ + + + + documented as of this encounter Visit Diagnoses Not on filedocumented in this encounter"
--- OUTSIDE RECORDS SUMMARY | ~2019-11-13 | XMS | Encounter Summary ---
Demographics + + + | Address | [address] | | | [place] [address] | + + + | Home Phone | | + + + | Preferred Language | Unknown | + + + | Marital Status | | + + + | Confucianist Affiliation | 1069 | + + + | Race | Unknown | + + + | Ethnic Group | Unknown | + + + Author + + + | Author | [facility] | | | and [place] | + + + | Organization | [facility] | | | and [place] | + + + | Address | Unknown | + + + | Phone | Unavailable | + + + Support + + + + + | Name | Relationship | Address | Phone | + + + + + | Daniel Daniel | ECON | [place] | | | | | [address] | | + + + + + | Katherine Daniel | ECON | [address] | | | | | [place] | | | | | [address] | | + + + + + | Katherine Daniel | ECON | [address] | | | | | [place] | | | | | [address] | | + + + + + Care Team Providers + +------+ + | Care Folder Operator Name | Role | Phone | [...] + + | 10/01/ | Refill | [facility] | Yasmin Bates, | Medication Refill | | 2020 | | CARDIOLOGY VANESSA | MD Aamir YOON | (Carvedilol) | | | | [address] | [place] | | | | | [place], [place] | [id number] | | | | | [address] | | | | | | [phone] | | | +--------+--------+ + + + [...] [place] | | | | | | [address] | | | | | | | | +--------+ + + + + documented as of this encounter Visit Diagnoses Not on filedocumented in this encounter"
--- OUTSIDE RECORDS SUMMARY | ~2019-11-13 | XMS | Clinical Summary ---
Demographics + + + | Address | [address] | | | [place] [address] | + + + | Home Phone | | + + + | Preferred Language | Unknown | + + + | Marital Status | | + + + | Congregational Affiliation | 1069 | + + + | Race | Unknown | + + + | Ethnic Group | Unknown | + + + Author + + + | Author | [facility] | | | and [place] | + + + | Organization | [facility] | [...] [place] | | | | | [address] | | + + + + + | Katherine Daniel | ECON | [address] | | | | | [place] | | | | | [address] | | + + + + + | Katherine Daniel | ECON | [address] | | | | | [place] | | | | | [address] | | + + + + + Care Team Providers + +------+ + | Care Resource Teacher Name | Role | Phone | [...] 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 | | Medtronic Praveen II DATA SCIENCES DIRECTOR-D ICD | | | | Last Assessment & Plan: | | Normal function. | + + + + + | Diabetes mellitus, type II | 08/10/2011 | + + + + + | Overview: Overview: | | [facility] [id number] Decision | | [facility] [id number] Decision | + + + + + | Dyslipidemia | 08/10/2011 | + + + | Essential hypertension | 08/10/2011 | + + + | Ischemic cardiomyopathy | 08/10/2011 | + + + + + | Overview: Last Assessment & Plan: Severe MR by last echo. Was | | seeing Dr. Serra, wishes to establish care with [place] | | wash and greaser. Will refer to cardiology and try to arrange his | | appointment for when he is in [place] for his generator | | change.Last Assessment & Plan: Severe MR by last echo. Was seeing | | Dr. Serra, wishes to establish care with [place] wash and greaser. | | Will refer to cardiology and try to arrange his appointment for | | when he is in [place] for his generator change. | + + [...] | | | | | graft of mesa grande | | | | | | heart [...] | | | | | [place] | | | | | | [address] | | | | | | | [...] | | | | | [place] (0640) on | | | | | | [...] Cm MD : 1940MRN: | | | [id number] Primary cardiology provider: Des Bates Primary | | | electrophysiology provider: Alireza Uribna Device puppet maker: | | | Medtronic Device type: Biventricular [...] +--------+ +---------+--------+ | MEDICARE | MEDICA | [id number] | 06/28/19 | [phone] | | Medica | | | RE | | 11-Pre | 5 | | re | | | PART A | | sent | | | | | | AND B | | | | | | + +--------+ +--------+ +---------+--------+ | [employer] [place] | MUTUAL | [id number] | | [phone] | | Indemn | | | OF | | 015-Pr | 0 | | ity | | | [place] | | esent | | | | + +--------+ +--------+ +---------+--------+ | MEDICARE | MEDICA | [id number] | 06/28/19 | [phone] | | Medica | | | RE | | 11-Pre | 5 | | re | | | PART A | | sent | | | | | | AND B | | | | | | + +--------+ +--------+ +---------+--------+ | [employer] [place] | MUTUAL | [id number] | | [phone] | | Indemn | | | AND | | 015-Pr | 0 | | ity | | | [place] | | esent | | | | | | [place] | | | | | | | [...] | | al/Fam | | 1940 | [phone] | [place] [address] | | | sid | | | 5 (Home) | | + +--------+ +--------+ + + | Dvaid Daniel | Person | Self | [birth year] | [address] | | | al/Fam | | 1940 | [phone] | [place] [address] | | | sid | | | 5 (Home) | | | | | | | [phone] | | | | | | | 4 (Work) | | + +--------+ +--------+ + + Advance Directives + + + + + | Type | Date Recorded | Patient | Explanation | | | | Line Controller | | + + + + + | Power of | | | | | Solar System Installer | | | | + + + + + | Advance | | | | | Directive | | | | + + + + +
--- OUTSIDE RECORDS SUMMARY | ~2019-11-13 | XMS | Encounter Summary ---
Demographics + + + | Address | [address] | | | [place] [address] | + + + | Home Phone | | + + + | Preferred Language | Unknown | + + + | Marital Status | | + + + | Restorationist Affiliation | EPI | + + + | Race | White | + + + | Ethnic Group | Not or | + + + Author + + + | Author | [facility] | + + + | Organization | [facility] | + + + | Address | Unknown | + + + | Phone | Unavailable | + + + Support + + +---------+ + | Name | Relationship | Address | Phone | + + +---------+ + | Katherine Daniel | ECON | Unknown | | + + +---------+ + Care Team Providers + +------+ + | Care Technical Intern Name | Role | Phone | + [...] as of this encounter Progress Notes Interface, Patternmaker In - 03/06/2006 1:02 AM PDTCLINIC DATE: [...] visit in 6 weeks. Edis Hatch M.D. Eyelet Row Marker, Otolaryngology [facility] / [id number] / [id number] / [id number] / [id number] signed by Interface, Patternmaker In at 03/06/2006 1:02 AM PDTdoc umented in this encounter Plan of Treatment Not on filedocumented as of this encounter Visit Diagnoses Not on filedocumented in this encounter"
--- OUTSIDE RECORDS SUMMARY | ~2019-11-13 | XMS | Encounter Summary ---
Demographics + + + | Address | [address] | | | [place] [address] | + + + | Home Phone [...] + + + | Author | [facility] | + + + | Organization | [facility] | + + + | Address | Unknown | + + + | Phone | Unavailable | + + + Support + + +---------+ + | Name | Relationship | Address | Phone | + + +---------+ + | Katherine Daniel | ECON | Unknown | | + + +---------+ + Care Team Providers + +------+ + | Care Heel Stainer Name | Role | Phone | + +------+ + | Sander Murphy MD | PCP | | + +------+ + Encounter Details +--------+ + + + + | Date | Type | Department | Care Team | Description | +--------+ + + + + | 03/01/ | Document-Sc | UNKNOWN DEPARTMENT | Other, Faculty | | | 2008 | anned | [address] [facility] | [phone] | | | | | [address] | | | | | | [place], [place] | | | | | | [address] | | | +--------+ + + + [...]
--- OUTSIDE RECORDS SUMMARY | ~2019-11-13 | XMS | Encounter Summary ---
Demographics + + + | Address | [address] | | | [place] [address] | + + + | Home Phone | | + + + | Preferred Language | Unknown | + + + | Marital Status | | + + + | Gnosticism Affiliation | 1069 | + + + | Race | Unknown | + + + | Ethnic Group | Unknown | + + + Author + + + | Author | [facility] | | | and [place] | + + + | Organization | [facility] | | | and [place] | + + + | Address | Unknown | + + + | Phone | Unavailable | + + + Support + + + + + | Name | Relationship | Address | Phone | + + + + + | Daniel Daniel | ECON | [place] | | | | | [address] | | + + + + + | Katherine Daniel | ECON | [address] | | | | | [place] | | | | | [address] | | + + + + + | Katherine Daniel | ECON | [address] | | | | | [place] | | | | | [address] | | + + + + + Care Team Providers + +------+ + | Care News Assistant Name | Role | Phone | [...] + + | 07/06/ | Telephone | [facility] | Elidia Philip, | Advice Only (home | | 2020 | | CARDIOLOGY VANESSA | Coat Operator Insulator | monitor | | | | [address] | | disconnected) | | | | [place] | | | | | | [address] | | | | | | [phone] | | | +--------+ + + + [...] [place] | | | | | | [address] | | | | | | | | +--------+ + + + + documented as of this encounter Visit Diagnoses Not on filedocumented in this encounter"
--- OUTSIDE RECORDS SUMMARY | ~2019-11-13 | XMS | Encounter Summary ---
Demographics + + + | Address | [address] | | | [place] [address] | + + + | Home Phone [...] [facility] | | | and [place] | + + + | Organization | [facility] | | | and [place] | + + + | Address | Unknown | + + + | Phone | Unavailable | + + + Support + + + + + | Name | Relationship | Address | Phone | + + + + + | Daniel Daniel | ECON | [place] | | | | | [address] | | + + + + + | Katherine Daniel | ECON | [address] | | | | | [place] | | | | | [address] | | + + + + + | Katherine Daniel | ECON | [address] | | | | | [place] | | | | | [address] | | + + + + + Care Team Providers + +------+ + | Care Loom Fixer Name | Role | Phone | + [...] | | Required | | corona | [address] | MD Rodger | | | | | Procedures | [place] | [address] | | | | | [place] OFFICE | [place] | | | | | OUTPATIENT | [place] | [place] | | | | | VISIT 25 | [address] | [address] Phone: | | | | | MINUTES | Phone: | [phone] | | | | | | [phone] | Fax: | | | | | | Fax: | [phone] | | | | | | [phone] | | +--------+ + + + + + Encounter Details +--------+ + + + + | Date | Type | Department | Care Team | Description | +--------+ + + + + | 04/18/ | [facility] | [facility] | Cabrera Mccoy | Macrocytic anemia | | 2018 | Encounter | [facility] | MD Rodger [address] | (Primary Dx) | | | | [facility] [address] [place] | | | | | [address] [place] | [place] [address] | | | | | [place] [address] | [phone] | | | | | [phone] | | | +--------+ + + + [...] of this encounter Progress Notes Alicia Ross, DUST BOX TENDER - 04/18/2018 2:53 PM PDTREVIEW OF SYSTEMS [...] | | | | | | [facility] [place] | | | | | | [address] | | | | | | | [...] + | [facility] | [address] | [place] | [phone] | | [facility] | | [address] | | | - LABORATORY | | [...] ST. | [address] | [place], [place] | [phone] | | [facility] | | [address] | | | - LABORATORY | | [...] + + | [facility] | [address] | [place] | [phone] | | [facility] | | [address] | | | - LABORATORY | | [...] + | [facility] | [address] | [place] | [phone] | | [facility] | | [address] | | | - LABORATORY | | [...] | | | | mmol/L | [facility] | | | | | [...] | | | FILTRATION | mL/min/1.73m2 | [facility] | | | UZBEK | RATE,ESTIMATED | | MEDICAL | | | | mL/min/1.63x2Ycgb than | | CENTER - | | [...] 4.0 | 3.2 - 5.0 g/dL | [facility] | | | | | | [facility] | | | | | [...] + | [address] | [address] | [place] | [phone] | | [facility] | | [address] | | | - LABORATORY | | [...] [address] | [place] | [phone] | | [facility] | | [address] | | | - LABORATORY | | [...]
--- OUTSIDE RECORDS SUMMARY | ~2019-11-13 | XMS | Encounter Summary ---
Demographics + + + | Address | [address] | | | [place] [address] | + + + | Home Phone [...] Providers + +------+ + | Care Industrial Economics Teacher Name | Role | Phone | [...] as of this encounter Progress Notes Interface, Metallurgical Or Materials Technician In - 04/21/2006 3:04 AM [facility] [place] [facility] and [address], [place] [address] or Department of Otolaryngology - PV01 December 15, 2000 Anand Lackey M.D. [address] [facility] [place] [address] RE: DAVID GOMEZ MR #: [id number] Dear Dr. Lackey: I did have the opportunity to evaluate David Gomez in the Otolaryngology Clinic at [facility] today. The complete details of my [...] rhythm disturbance for which he sees a demand generation manager in [facility]. 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 On review of [...] I will be in contact with his demand generation manager, Dr. Nicholson in [facility] to obtain records on his cardiac status. I would like to thank you for allowing us to be involved in Mr. Gomez's care. If you have any questions, please feel free to contact me, and I will keep you update as to his progress. Sincerely, Edis Hatch M.D. Internet Application Developer Otolaryngology, Head and Neck Surgery [facility] / [id number] / [id number] / [id number] / cc: Austin Espinosa M.D. [address] [place] [address] [id number] signed by Interface, Metallurgical Or Materials Technician In at 04/21/2006 3:04 AM PDTdocume nted in this encounter Plan of Treatment Not on filedocumented as of this encounter Visit Diagnoses Not on filedocumented in this encounter"
--- OUTSIDE RECORDS SUMMARY | ~2019-11-13 | XMS | Encounter Summary ---
Demographics + + + | Address | [address] | | | [place] [address] | + + + | Home Phone | | + + + | Preferred Language | Unknown | + + + | Marital Status | | + + + | Moravian Affiliation | 1069 | + + + | Race | Unknown | + + + | Ethnic Group | Unknown | + + + Author + + + | Author | [facility] | | | and [place] | + + + | Organization | [facility] | | | and [place] | + + + | Address | Unknown | + + + | Phone | Unavailable | + + + Support + + + + + | Name | Relationship | Address | Phone | + + + + + | Daniel Daniel | ECON | [place] | | | | | [address] | | + + + + + | Katherine Daniel | ECON | [address] | | | | | [place] | | | | | [address] | | + + + + + | Katherine Daniel | ECON | [address] | | | | | [place] | | | | | [address] | | + + + + + Care Team Providers + +------+ + | Care Supervisor Pipe Finishing Name | Role | Phone | + [...] | | | | SP NATARAJAN | [place] [address] | | | | | [place] [address] | | | | | | [phone] | | | +--------+ + + + [...] | | | | | [place], [place] | | | | | | [address] | | | | | | | [...]
--- OUTSIDE RECORDS SUMMARY | ~2019-11-13 | XMS | Encounter Summary ---
Demographics + + + | Address | [address] | | | [place] [address] | + + + | Home Phone [...] | Author | [facility] | | | and [place] | + + + | Organization | [facility] | [...] [place] | | | | | [address] | | + + + + + | Katherine Daniel | ECON | [address] | | | | | [place] | | | | | [address] | | + + + + + | Katherine Daniel | ECON | [address] | | | | | [place] | | | | | [address] | | + + + + + Care Team Providers + +------+ + | Care Ic Designer Standard Cells Name | Role | Phone | + [...] + + | 05/11/ | Telephone | [facility] | Yasmin Bates, | Advice Only | | 2019 | | ANNELIESE MENDEZ | [address] | | | | | [address] | [place], [place] | | | | | [place], [place] | [address] | | | | | [address] | | | | | | [phone] | | | +--------+ + + + [...] 2019 | Visit | | MD Aamir YONO | | | | | | [place] | | | | | | [address] | | | | | | | | +--------+ + + + + documented as of this encounter Visit Diagnoses Not on filedocumented in this encounter"
--- OUTSIDE RECORDS SUMMARY | ~2019-11-13 | XMS | Encounter Summary ---
Demographics + + + | Address | [address] | | | [place] [address] | + + + | Home Phone [...] Author | [facility] | | | and [place] | + + + | Organization | [facility] | | | and [place] | + + + | Address | Unknown | + + + | Phone | Unavailable | + + + Support + + + + + | Name | Relationship | Address | Phone | + + + + + | Daniel Daniel | ECON | [place] | | | | | [address] | | + + + + + | Katherine Daniel | ECON | [address] | | | | | [place] | | | | | [address] | | + + + + + | Katherine Daniel | ECON | [address] | | | | | [place] | | | | | [address] | | + + + + + Care Team Providers + +------+ + | Care Three Dimensional Art Instructor Name | Role | Phone | [...] + + | 09/11/ | Telephone | [facility] | Clau Avila | CHF Management | | 2020 | | CARDIOLOGY VANESSA Jamison RN | | | | | [address] | | | | | | [place] | | | | | | [address] | | | | | | [phone] | | | +--------+ + + + [...] [place] | | | | | | [address] | | | | | | | | +--------+ + + + + documented as of this encounter Visit Diagnoses Not on filedocumented in this encounter"
--- OUTSIDE RECORDS SUMMARY | ~2019-11-13 | XMS | Encounter Summary ---
Demographics + + + | Address | [address] | | | [place] [address] | + + + | Home Phone | | + + + | Preferred Language | Unknown | + + + | Marital Status | | + + + | Buddhism Affiliation | EPI | + + + | Race | White | + + + | Ethnic Group | Not or | + + + Author + + + | Author | [facility] | + + + | Organization | [facility] | + + + | Address | Unknown | + + + | Phone | Unavailable | + + + Support + + +---------+ + | Name | Relationship | Address | Phone | + + +---------+ + | Katherine Daniel | ECON | Unknown | | + + +---------+ + Care Team Providers + +------+ + | Care Allergist/Md Name | Role | Phone | + +------+ + PCP | Unavailable | + +------+ + Encounter Details +--------+ + + + + | Date | Type | Department | Care Team | Description | +--------+ + + + + | 06/06/ | Results | Otolaryngology | Edis Hatch, | | | 2001 | Only | Head and Neck | MD [address] [facility] | | | | | Surgery Services at | [facility] | | | | | [address] | [place], [place] | | | | | [address] | [address] | | | | | Physician's | [phone] | | | | | Pavilion, [facility] floor | | | | | | [place], [place] | | | | | | [address] | | | | | | [phone] | | | +--------+ + + + [...] + +--------+ + + + | NON TOP LIFT COMPRESSOR CYTOLOGY | Routin | 06/06/2002 | | Results for this | | | e | | | procedure are in the | | | | | | results section. | + +--------+ + + + documented in this encounter Results NON-TOP LIFT COMPRESSOR CYTOLOGY (06/06/2002) + + + + + + | Component | Value | Ref Range | Performed | Pathologist | | | | | At | Signature | + + + + + + | NON-TOP LIFT COMPRESSOR | SOURCE OF SPECIMEN:A | | [facility] [...] | + + + + + | [facility] DEPARTMENT OF | [address] | [place] [address] | | | PATHOLOGY | [address] | | | + + + + + | [facility] DEPARTMENT OF | [address] | [place] [address] | | | PATHOLOGY | [address] | | | + + + + + documented in this encounter Visit Diagnoses Not on filedocumented in this encounter"
--- OUTSIDE RECORDS SUMMARY | ~2019-11-13 | XMS | Encounter Summary ---
Demographics + + + | Address | [address] | | | [place] [address] | + + + | Home Phone [...] | Author | [facility] | | | and [place] | + + + | Organization | [facility] | | | and [place] | + + + | Address | Unknown | + + + | Phone | Unavailable | + + + Support + + + + + | Name | Relationship | Address | Phone | + + + + + | Daniel Daniel | ECON | [place] | | | | | [address] | | + + + + + | Katherine Daniel | ECON | [address] | | | | | [place] | | | | | [address] | | + + + + + | Katherine Daniel | ECON | [address] | | | | | [place] | | | | | [address] | | + + + + + Care Team Providers + +------+ + | Care Chief Engineer Name | Role | Phone | [...] anemia | | 2018 | | MED [facility] | MD Rodger [address] | (Primary Dx) | | | | ONCOLOGY CL[facility]IC [address] | | | | | [address] [employer] [place] | [place] [address] | | | | | [place] [address] | [phone] | | | | | [phone] | | | +--------+ + + + [...] | | | | | [place], [place] | | | | | | [address] | | | | | | | [...]
--- OUTSIDE RECORDS SUMMARY | ~2019-11-13 | XMS | Encounter Summary ---
Demographics + + + | Address | [address] | | | [place] [address] | + + + | Home Phone | | + + + | Preferred Language | Unknown | + + + | Marital Status | | + + + | Restoration Affiliation | EPI | + + + [...] Providers + +------+ + | Care Senior Staff Consultant Name | Role | Phone | + [...] floor | | | | | | [place], [place] | | | | | | [address] | | | | | | [phone] | | | +--------+ + + + [...] | | PATHOLOGY | | | | [facility] | | | | | | [facility] [place], | | | | | | [place], is | | | | | | [...] | | | | | | slide [id number] recut): | | | | | | [...] | + + + + + | [facility] | [address] | [place] [address] | | | PATHOLOGY | [address] | | | + + + + + | [facility] | [address] [facility] | [place] [address] | | | PATHOLOGY | [address] [...] | | | | | on the nursing program chair view of | | | | | [...] + + | Performing | Address | City/State/[facility] | Phone Number | | Organization | | | | + +---------+ + + | [facility] | | | | | RADIOLOGY | | | | + +---------+ + + documented in this encounter Visit Diagnoses Not on filedocumented in this encounter"
--- OUTSIDE RECORDS SUMMARY | ~2019-11-13 | XMS | Encounter Summary ---
Demographics + + + | Address | [address] | | | [place] [address] | + + + | Home Phone [...] Team Providers + +------+ + | Care High Pressure Boiler Operator Name | Role | Phone | [...] as of this encounter Progress Notes Interface, Cabin Service Agent In - 04/21/2006 3:04 AM [facility] [place] [facility] and [place] [address] [address], [place] [address] or Department of Otolaryngology - PV01 December 15, 2000 Anand Lackey M.D. [address] [facility] [place] [address] RE: DAVID GOMEZ MR #: [id number] Dear Dr. Lackey: I did have the opportunity to evaluate David Gomez in the Otolaryngology Clinic at [facility] today. The complete details of my [...] rhythm disturbance for which he sees a greenhouse transplanter in [facility]. 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 On [...] I will be in contact with his greenhouse transplanter, Dr. Nicholson in [facility] to obtain records on his cardiac status. I would like to thank you for allowing us to be involved in Mr. Gomez's care. If you have any questions, please feel free to contact me, and I will keep you update as to his progress. Sincerely, Edis Hatch M.D. Manager Of Compliance Otolaryngology, Head and Neck Surgery [facility] / [id number] / [id number] / [id number] / cc: Austin Espinosa M.D. [address] [place] [id number] signed by Interface, Cabin Service Agent In at 04/21/2006 3:04 AM PDTdocume nted in this encounter Plan of Treatment Not on filedocumented as of this encounter Visit Diagnoses Not on filedocumented in this encounter"
--- OUTSIDE RECORDS SUMMARY | ~2019-11-13 | XMS | Encounter Summary ---
Demographics + + + | Address | [address] | | | [place] [address] | + + + | Home Phone | | + + + | Preferred Language | Unknown | + + + | Marital Status | | + + + | Congregation Affiliation | EPI | + + + | Race | White | + + + | Ethnic Group | Not or | + + + Author + + + | Author | [facility] | + + + | Organization | [facility] | + + + | Address | Unknown | + + + | Phone | Unavailable | + + + Support + + +---------+ + | Name | Relationship | Address | Phone | + + +---------+ + | Katherine Daniel | ECON | Unknown | | + + +---------+ + Care Team Providers + +------+ + | Care Lathe Machine Operator Name | Role | Phone [...] | Head and Neck | MD [address] [facility] | | | | | Surgery Services at | [facility] | | | | | [address] | [place], [place] | | | | | [address] | [address] | | | | | Physician's | [phone] | | | | | Pavilion, [facility] floor | | | | | | [place], [place] | | | | | | [address] | | | | | | [phone] | | | +--------+ + + + [...] + + + + + | [facility] | [address] [facility] | [place] [address] | | | PATHOLOGY | [address] | | | + + + + + | [facility] | [address] [place] [address] | [place] [address] | | | PATHOLOGY | [address] [...] DEPARTMENT OF | [address] | [place] [address] | | | PATHOLOGY | [address] | | | + + + + + | [place] DEPARTMENT OF | [address] [facility] | [place] [address] | | | PATHOLOGY | [address] [...] + + + + + | [facility] | [address] | [place] [address] | | | PATHOLOGY | [address] | | | + + + + + | [facility] DEPARTMENT | [address] | [place] [address] | | | PATHOLOGY | [address] [...] (L)Comment: | 0.98 - 1.08 INR | [facility] | | | | PT INR Therapeutic [...] + + + + + | [facility] | [address] [place] [address] | [place] [address] | | | PATHOLOGY | [address] | | | + + + + + | [facility] | [address] [place] [address] | [place] [address] | | | PATHOLOGY | [address] [...] + + + + + | [facility] | [facility] | [place] [address] | | | PATHOLOGY | [address] | | | + + + + + | [facility] | [address] [place] [address] | [place] [address] | | | PATHOLOGY | [address] [...] + + + + + | [facility] | [address] | [place] [address] | | | PATHOLOGY | [address] | | | + + + + + | [facility] | [facility] | [place] [address] | | | PATHOLOGY | [address] | | | + + + + + documented in this encounter Visit Diagnoses Not on filedocumented in this encounter"
[~2019-11-13 16:39] MED LIST changes: +ADMELOG SO100 UNIT/1 SUB-Q; +BACLOFEN10 MG PO; +EFFEXOR XR75 MG PO; -HUMALOG100 UNITS/ SQ; +K-TAB ER20 MEQ PO; -LANTUS100 UNITS/ SUB-Q; +MORPHABOND ER15 MG PO; -SPIRONOLACTONE25 MG PO; +SPIRONOLACTONE50 MG PO; +TORSEMIDE20 MG PO; +TRAZODONE HCL150 MG PO; -TRAZODONE HCL50 MG PO; +TRESIBA FL100 UNIT/1 SUB-Q
--- OUTSIDE RECORDS SUMMARY | 2019-11-13 16:44 | XMS ---
PreManage Notification: STEVE GOMEZ Security Director Cardiac Events No recent Security Events currently on file CRITERIA MET - [facility] - Has Care Guidelines - PDMP CARE PROVIDERS ÁNGEL PETERS Physician Mortgage Loan Officer 02/24/2019-Current PHONE: [phone] DAWN LIAO Dentist: Senior Software Development Manager 02/24/2019-Current DMD PC G PHONE: [phone] TR BRADLEY Internal Medicine: Pulmonary Disease 09/23/2018-Current PHONE: Unknown Eleni has no Care Guidelines for this patient. Care History Medical/Surgical 09/23/2018 [facility] - Patient is currently established with [facility]. If patient is seen in the ED during business hours. Please contact CHWs at [facility]. Care Recommendation: This patient has had 5 [...] 2 NOTE: Visits indicate total known visits. ED/UCC VISIT TRACKING (12 MO.) 11/13/2019 16:40 [facility] [place] TYPE: Emergency COMPLAINT: - ABD PAIN, CONSTIPATION 02/23/2019 13:[address] 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
--- NOTE | 2019-11-13 21:04 | EKG ---
[facility] [address] [facility] [place], [place] [address] Signed Atrial-sensed ventricular-paced rhythm Biventricular pacemaker detected Abnormal ECG When compared with ECG of 13-OCT-2017 13:53, No significant change was found Confirmed by IVORY VALENZUELA DO ([id number]) on 11/13/2019 9:04:38 PM Electronically Signed By: IVORY VALENZUELA DO 11/13/19 2104 PATIENT NAME: PATRICIASTEVEGELY MANRIQUE Electrocardiogram DATE OF : 42 PHYSICIAN: IVORY VALENZUELA DO REPORT #: [id number] REPORT IS CONFIDENTIAL AND NOT TO BE RELEASED WITHOUT AUTHORIZATION
--- NOTE | 2019-11-13 21:14 | NUR ---
REPORT RECEIVED FROM ED YARA GILBERT
--- NOTE | 2019-11-13 21:45 | NUR ---
pt ARRIVED TO THE FLOOR VIA ER STRETCHER, pt ABLE TO TRANSFER OVER TO MS BED UNASSISTED, 1PA TO BR, GAIT IS SLIGHTLY UNSTEADY, PRN PAIN AND NAUSEA MEDS ADMINISTERED PER REQUEST/ORDER. ENEMA ADMINISTERED WITH pt LYING ON L SIDE PER ORDER. IVF INFUSING WNL PER ORDER. pt RESTING IN BED WITH CALL LIGHT IN REACH AND BED ALARM ON.
--- NOTE | 2019-11-14 00:16 | NUR ---
pt REPORTS HIS NAUSEA HAS SUBSIDED, ENEMA ADMINISTERED PER ORDER, ATTENDS IN PLACE IN CASE OF INCONTINENCE. pt RESTING IN BED SAFELY WITH CALL LIGHT IN REACH AND BED ALARM ON. APPLE JUICE GIVEN PER REQUEST.
--- NOTE | 2019-11-14 01:18 | NUR ---
pt SITTING ON SIDE OF BED, 1PA TO BR, UNALBE TO VOID, RESTING IN BED WITH CALL LIGHT IN REACH AND BED ALARM ON. WARM BALNKETS GIVEN PER REQUEST.
--- NOTE | 2019-11-14 01:55 | NUR ---
2ND pt ASSESSMENT, VS, I+O's COMPLETE. 1PA ASSIT TO BR, UNABLE TO VOID. pt RESTING IN BED WITH CALL LIGHT IN REACH AND BED ALARM ON.
--- NOTE | 2019-11-14 02:51 | NUR ---
BED ALARM ALARMING, pt ATTEMPTING TO GET OUT OF BED, 1PA TO BR, pt UNABLE TO VOID. pt WAS FALLING ASLEEP ON TOILET, BACK IN BED RESTING SAFELY WITH CALL LIGHT IN REACH AND BED ALARM ON. pt REORIENTED TO TIME, NEEDING FREQUENT REORIENTATION.
--- NOTE | 2019-11-14 04:23 | NUR ---
PER PAINTINGS RESTORER, pt DIAPHORETIC UPON AWAKENING. CBG 65. APPLE JUICE, CRACKERS ENSURE PROVIDED AND pt DRINKING JUICE AT THIS TIME. 1PA TO RESTROOM AND BACK TO BED, FLATUS NOTED, NO BM. IVF INFUSING WNL ORDERED. SMALL SKIN TEARS NOTED UPON AWAKENING ON RIGHT FOREARM, BLOOD ON SHEET. SHEET, GOWN CHANGED. ALLEVYNS PLACED. pt SITTING UP AT SIDE OF BED. WARM BLANKETS PROVIDED. CALL LIGHT IN REACH.
--- NOTE | 2019-11-14 04:48 | NUR ---
BED ALARM SOUNDING, pt STANDING AT SIDE OF BED. REORIENTATION TO TIME PROVIDED. WARM BLANKET PROVIDED, pt LYING IN BED. BED ALARM ON. CALL LIGHT IN REACH.
--- NOTE | 2019-11-14 05:56 | NUR ---
pt ARRIVES TO MEDICAL FLOOR THIS SHIFT. REORIENATION PROVIDED TO DATE. pt DENIES ANY ABD PAIN THROUGHOUT SHIFT, PRN NAUSEA MEDICATION X 1. FLATUS PRESENT, ACTIVE BTS. 1PA WITH FWW TO RESTROOM FOR VOIDS, NO BM NOTED. IVF INFUSING WNL THROUGHOUT SHIFT. pt [facility]CL[facility]ES HOSPITAL CPAP, 1L OXYGEN BY NC WITH SLEEP. TELE 5, PACED RHYTHM. VSS. BED ALARM IN PLACE, pt IMPULSIVE.
--- NOTE | 2019-11-14 05:56 | NUR ---
pt RESTING IN BED WITH EYES CLOSED. APPEARS TO BE SLEEPING, BREATHING UNLABORED. 1L OXYGEN BY NC IN PLACE WITH SLEEP.
--- NOTE | 2019-11-14 06:37 | NUR ---
BED ALARM SOUNDING. SBA TO RESTROOM FOR VOID. FLATUS PRESENT. pt DENIES ABD DISCOMFORT, NAUSEA. C/O 7/10 PAIN IN NECK AND BACK. BP 198/97, HR 66. PRN PAIN AND BP MEDICATION ADMINISTERED. pt RESTING IN BED. BED ALARM ON. CALL LIGHT IN REACH. IVF INFUSING WNL ORDERED.
--- NOTE | 2019-11-14 07:06 | NUR ---
REPORT RECEIVED FROM YARA HOLLINGSWORTH. PTRESTING IN BED WITH EYES CLOSED. SNORING NOTED. PT REMAINS ON 1L O2 BY NC. BED RAILS UP. CALL LIGHT WITHIN REACH. PT ALLOWED TO REST.
--- NOTE | 2019-11-14 07:25 | NUR ---
RN NOTIFIED RE BP.
--- NOTE | 2019-11-14 08:19 | NUR ---
MORNING ASSESSMENT AND MEDICATION DUE. PT RESTING IN BED AND REPORTS 7/10 PAIN IN BACK AND NECK. PT ENCOURAGED TO GET UP TO CHAIR. PT AGREES. 1PA FWW UP TO CHAIR. BLOOD SUGAR MONITOR NOTED ON PTS LEFT LOWER QUADRANT. PT DOES NOT KNOW WHERE THE MONITOR REPORTS BLOOD SUGAR TO. BLOOD SUGAR TAKEN, NO SLIDING SCALE INSULIN NEEDED. ASSESSMENT DONE. CRACKELS HEARD IN LOWER LOBES. I.S. PROVIDED PT RESCHES 750ML ON I.S. PT BEGINS EATING BREAKFAST AND BECOMES NAUSEATED, SEE MAR FOR MEDICATION GIVEN. HEAT PACKS PROVIDED FOR NECK. PT REPORTS PAIN AND NAUSEA ARE "A LITTLE" BETTER." MEDICAITONS GIVEN. PT WEANED TO ROOM AIR, WAS ON 1L O2 BY NC WHILE SLEEPING. O2 AT 94% ON ROOM AIR. PT REMAINS UP TO CHAIR, NO ADDITIONAL REQUESTS OR COMPLAINTS CALL LIGHT WITHIN REACH. PT EASILY VIEWED FROM NURSES STATION.
--- NOTE | 2019-11-14 09:44 | NUR ---
PATIENT USING THE BATHROOM. RN STUDENT IN ROOM. PATIENT BACKS TO CHAIR. VITAL SIGNS OBTAINED BY STUDENT RN. VITAL SIGNS AND I&O DONE. HIGH BLOOD PRESSURE. RN NOTIFIED. CALL LIGHT WITHIN REACH. NO OTHER NEEDS AT THIS TIME
--- NOTE | 2019-11-14 09:52 | NUR ---
THIS RN TO ROOM TO CHECK ON PT. PT REPORTS 6/10 PAIN, HEAT PACK PROVIDED. PT REPORTS ONGOING MILD NAUSEA AND STATES "THIS HAPPENS AT HOME TOO." PT REPORTS "TROUBLE WITH MY RESTLESS LEGS." X-RAY ARRIVED FOR ABDOMINAL VIEW. PT TREANSPORTS SELF TO WHEELCHAIR. IV SALINE LOCKED. PT OFF THE FLOOR FOR X-RAY.
--- NOTE | 2019-11-14 10:00 | NUR ---
CM assessment completed with Ti. 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 She takes care of house hold chores and drives him. He is slow to answer questions. Uses wc, walker, cane as needed, has CPAP and a nebulizer. States he does not have any medication for his nebulizer. Lives in a 1 story home and has 2 steps into his home. He does not drive. I attempted to call his to see if there is anything they will need for a safe dc, I was not able to reach.
--- NOTE | 2019-11-14 10:04 | NUR ---
PT RETURNED FROM X-RAY. 1PA TRANFSER TO CHAIR. IV FLUIDS RESUMED AT NEW RATE PER MD ORDER. PTS , FELA CALLED AND UPDATED. FELA STATES HER QUESTIONS HAVE BEEN ANSWERED. STATES "HIS STOMACH HAS BEEN BACKED UP FOR DAYS AND DAYS NOW WHICH MAKES HIM NAUSEATED."
--- NOTE | 2019-11-14 10:50 | NUR ---
MEDICATION DUE. VITALS TAKEN. PT UP TO CHAIR AFTER PHSYICAL THERAPY. PHYSICAL THERAPIST STATES PT WAS SHORT OF BREATH DURING ACTIVITY. PHYSICAL THEAPIST STATES SHE BELIEVES PTS ABDOMINAL DISTENTION IS INTERFEERING WITH DEEP BREATHING. MEDICATION GIVEN. PT CONTINUES TO REPORT 7/10 PAIN AND NAUSEA. NO ADDITIONAL REQUESTS OR COMPLAINTS. WARM BLANKETS PROVIDED. CALL LIGHT WITHIN REACH. PT EASILY VIEWED FROM NURSES STATION.
[2019-11-14] MEDS ORDERED: NEURONTIN300 MG PO (11:40)
--- NOTE | 2019-11-14 11:45 | NUR ---
NOON ASSESSMENT AND MEDICATION DUE. THIS RN TO ROOM. PT UP TO CHAIR. 1PA BACK TO BED FOR SUPOSITORY ADMINSTRATION. PT REQUESTS TO GET BACK UP TO CHAIR STATING HE CAN BREATH "BETTER" AND IS "MORE COMFORTABLE." ASSESSMENT DONE. CRACKELS HEARD IN LOWER LOBES. ABDOMEN MORE DISTENDED AT THIS TIME, FIRM. PT CONTINUES TO REPORT NAUSEA. NO BOWEL MOVEMENT NOTED, PT IS PASSING GAS. PT STATES "I CAN'T GO ON LIKE THIS." "I FEEL REALLY CRUMMY." PT UPT O RESTROOM, WHERE HE PASSES MORE GAS. MD TO BEDSIDE FOR ROUND. UPDATED ON PT CONDITION. MD STATES TO HOLD MEDCIATIONS AND CT SCAN WILL BE ORDERED. SWALLOWING DIFFICULTY CONTINUES. SPEECH EVAL ORDERED. MEDICATIONS HELD PER MD VERBAL ORDER. BLOOD SUGAR TAKEN, PT BLEEDS EASILY WITH NEEDLE PRICK, PRESSURE HELD FOR 5 MINUTES. PT MADE MP AT THSI TIME. IV FLUIDS CONTINUE INFUSING. NO ADDITIONAL REQUESTS OR COMPLAINTS. CALL LIGHT WITHIN REACH.
--- NOTE | 2019-11-14 12:15 | NUR ---
PTS CALLED AND UPDATED. PTS STATES PT GOES THROUGH PERIODS OF ABDOMINAL DISTENTION BUT "NOTHING LIKE THIS." FELA STATES PTS ABDOMEN HAS BEEN INCREASING IN SIZE "OVER THE PAST FEW WEEKS." NOTIFIED. PT AWIATING CT SCAN. CALL LIGHT WITHIN REACH.
--- NOTE | 2019-11-14 12:38 | NUR ---
PT UP WALKING WITH Radha FIELD. ENCOURAGED PT, HE SEEMS MILDLY DISORIENTED. WILL CHECK BACK
--- NOTE | 2019-11-14 13:10 | NUR ---
PATIENT SITTING UP IN CHAIR. VITAL SIGNS OBTAINED BY STUDENT RN. VITAL SIGNS AND I&O DONE. CALL LIGHT WITHIN REACH. NO OTHER NEEDS AT THIS TIME
--- NOTE | 2019-11-14 13:30 | NUR ---
NG TUBE PLACED PER PROTOCOL WITH ASSISTANCE FROM YARA ONTIVEROS. SINGLE VIEW X-RAY TAKEN TO CONFIRM PLACEMENT. MD TO BEDSIDE TO VIEW X-RAY. NG TUBE PULLED BACK OUT APROXIMATLY 5 CM. X-RAY RETAKEN. DR. CHEN STATES NG TUBE HAS TIP LOCATED IN THE STOMACH. NG TUBE TO LOW INTERMITTANT SUCTION. PT TOELRATED PROCEEDURE WELL. COMPLAINS OF SOAR THROAT. NO ADDITIONAL REQUESTS OR COMPLAINTS AT THIS TIME. CALL LIGHT WITHIN REACH.
--- NOTE | 2019-11-14 14:03 | NUR ---
Recieved return call from , Katherine. She states some info I received from Ti is not accurate. She states this is the problem and why she brought him in. Pt does not have a wc and does not use nebulizer. They have grab bars in several rooms as this has made it easier for him to walk. He has been taking his own meds, but after she spoke with Dr. Cm yesterday, she plans to take over his medications. She also states his sons have been saying he is "off" or "converstations not right" she felt this was due to hearing loss, but feels he may have early dementia. She feels it will be safe for him to return home with her on dc, depending on what is found while in the hospital. She will call back if she thinks of any needs for a safer dc when pt has stablized.
--- NOTE | 2019-11-14 14:09 | NUR ---
Dr Gómez updated.
[2019-11-14] MEDS ORDERED: EFUDEX40 GM TOP (14:44)
--- NOTE | 2019-11-14 14:45 | NUR ---
MED REC COMPLETE
--- NOTE | 2019-11-14 15:49 | NUR ---
PT IS 79 YO MALE WHO PRESENTED TO ED 11/11/19 C/ AMS AND NOW 6 DAY HX OF CONSTIPATION W/ NO BM. PTS REPORTS THAT HE HAS BEEN CONSTIPATED IN THE PAST BUT NOT FORT THIS LONG. PT HAS BEEN EXPERIENCING SIGNIFICANT CONFUSION AND HALLUCINATIONS. PT HAS POOR PO INTAKE; REPORTS SIGNIFICANT NAUSEA D/T CONSTIPATION. PT REPORTS SOB DURING ACTIVITY SUCH WALKING WHICH IS NOT HIS BASELINE. PMH IS DM2, HEART DISEASE, HTN, , MACULAR DEGENERATION, CHF, SLEEP APNEA C/ CPAP COMPLIANCE, CHRONIC ANEMIA, TRIPLE BYPASS, TONSILLECTOMY, LT EAR (UNKNOWN), H&N CANCER PT REPORTS [place] CANCER RIGHT SIDE OF NECK WITH RECETION UNABLE TO BE MORE SPECIFIC IN [address]. [address] HEAD C/O ACUTE CHANGHES C/ SENESCENT CHANGES C/ CHRONIC SINUS INFLAMMATION, MOD STENOSIS LEFT VERTEBRAL ARTERY, NECK CTA MOD STENOSIS, HYPONATREMIA, HYPERKALEMIA. PT REPORTS ODYNOPHAGIA IN THROAT AND STOMACH WHEN EATING. REPROTS DIFFICULTY SWALLOWING FOOD AND SOLIDS. HE REPROTS A SEVERAL MONTH HX OF VOICE CHANGES. HE REPORTS FREQUENT COUGHING AND THROAT CLEARING. HE REPORTS BOLUS SENSATION DURING SWALLOWING AND OCCASIONAL REGURGITATION W/O HEAVING. REFLUX SYMPTOMS INDEX SCORE OF 24; A SCORE OF >13 MAY BE INDICATIVE OF SIGNIFCANT REFLUX DISEASE. PT ALSO PRESENTS WITH SIGNIFICANT AUDIBLE SWALLOW AND BURPING POST PRANDIAL INTAKE. FULL SWALLOW EVALUATION NOT COMPLETED AT THIS TIME D/ T NATALEEG ENID REPORTING THAT PT IS NPO FOR SWALLOW TRIALS AT THIS TIME DUE TO DECLINE IN STATUS AND POSSIBLE UPCOMING SURGICAL CONSULT. THIS THX WAS ABLE TO OBSERVE PO TRIALS OF THIN WATER SELF-FED PRESENTED BY STRAW INCLUDING TWO TRIALS WITH PILLS. PT WAS OBSERVED TO HAVE DIFFICULTY INITIATING SWALLOW ON ONE TRIAL OF PILLS. PT THROWS HEAD BACK TO SWALLOW PILLS ON BOTH TRIALS, WHICH MAY BE INDICATIVE OF REDUCED TONGUE MOVEMENT. GIVEN PTS HX, I WOULD RECOMMEND A MBSS WHEN PT IS ABLE TO PARTICIPATE IN ONE (AWAITING CLEARANCE FROM DR FOR PO IN TAKE, REDUCED NAUSEA TO ALLOW FOR ADEQUATE INTAKE, AND CLEARANCE FOLLOWING SURGICAL CONSULT).
--- NOTE | 2019-11-14 16:00 | NUR ---
AFTERNOON ASSESSMENT AND MEDICATIONS DUE. MD CALLED AND UPDATED REGARDING PTS STATUS. MD STATES TO CLAMP NG TUBE AND ADMISTER MEDICATIONS. SPEECH THERAPIST TO BEDSIDE FOR SWALLOW EVALUATION. MEDICATIONS GIVEN WITH SPEECH THERAPIST PRESENT. ASSESSMENT DONE. BOWEL CONTINUES TO SHOW SEVERE DISTENTION, FIRM TO PLAPATION, HYPOACTIVE BOWEL TONES HEARD. PT REPORTS 7/10 PAIN IN "MY HEAD, BACK AND THROAT." PT DECLINES PAIN MEDICAITON STATING "I JUST WANT YOU TO FIX IT." PT REMAINS UP TO CHAIR. NG TUBE CLAMPED AT THIS TIME AFTER MEDICATION ADMINISTRATION. EDUCATION DONE WITH PT REGARDING METHYLNALOXONE, ADMINISTERED, SEE MAR. BLOOD SUGAR NOTED TO BE 62. HALF AMP OF D50 GIVEN PER PROTOCOL. BLOOD SUGAR REEVALUTATED AFTER 15 MINUTES AND IS NOW 119. MD NOTIFIED. NEW ORDERES TO BEGIN D5LR AT 100ML/HR FOR FLUIDS. STARTED ORDERED. PT RESTING IN CHAIR. CALL LIGHT BERRY KELLER.
--- NOTE | 2019-11-14 17:03 | NUR ---
PT BACK TO RECLINER AFTER UP TO BATHROOM WITH STANDBY ASSIST. PT HAD 200CC URINE OUT AND SCANT BM NOTED IN TOILET.
--- NOTE | 2019-11-14 17:08 | NUR ---
PATIENT SITTING UP IN CHAIR. VITAL SIGNS AND I&O DONE. CALL LIGHT WITHIN REACH. NO OTHER NEEDS AT THIS TIME
--- NOTE | 2019-11-14 17:22 | NUR ---
THIS RN TO ROOM TO CHECK ON PT. PT REPORTS HE HAD A BOWEL MOVEMENT AND FEELS "A TINY BIT" BETTER." BLOOD SUGAR CHECKED NOW 110. PT RESTINGIN CHAIR. NG TUBE TO LOWER INTERMITTANT SUCTION. NO ADDITIONAL REQUESTS OR COMPLAINTS AT THIS TIME. CALL LIGHT WITHIN REACH.
--- NOTE | 2019-11-14 18:21 | NUR ---
PTS , FELA, CALLED AND UPDATED PER PT AND 'S REQUEST. PTS STATES SHE WILL BRING PTS CPAP UP FOR TONIGHT. FELA STATES PT HAS DISCUSSED GASTROPARESIS WITH DR. ESCOBAR BEFORE AND FELA WOULD LIKE TO BRING THIS TO THE ATTENTION OF THE TEAM. FELA UPDATED ON PTS CONDITION AND ACTIONS THAT HAVE BEEN TAKEN TODAY. FELA STATES HER QUESTIONS HAVE BEEN ANSWERED.
--- NOTE | 2019-11-14 18:30 | NUR ---
PT HERE FOR METABOLIC ENCEPHALOPATHY. 1PA WITH FWW UP TO RESTROOM. ABDOMINAL DISTENTION WORSENING THIS SHIFT. ABDOMINAL X-RAY AND CT DONE. NG TUBE PLACED. NG TUBE TO LOW INTERMITTANT SUCTION WITH MINMAL OUTPUT. SURGICAL CONSULT ORDERED. PT GIVEN METHYLNALTREXONE WITH MINIMAL RESULTS. PT PASSING LARGE AMOUNTS OF GAS. PT REMAINS NPO AT THIS TIME. TELE #5 SHOWS PACED RYTHEM THIS SHIFT. EPISODE OF HYPOGLYCEMIA THIS SHIFT WITH D50 GIVEN AND D5 LR STARTED FOR IV FLUIDS. CPAP TO BE BROUGHT IN BY FAMILY. SPEECH CONSULT ORDERED FOR DIFFICULTY WITH SWALLOWING. PHYSICAL THERPAY THIS SHIFT. PT VOIDING QUANTITY SUFFICIENT. PT USES CALL LIGHT APPROPRATLY.
--- NOTE | 2019-11-14 19:09 | NUR ---
PT CALL LIGHT ON. PT REQUESTS ASSISTANCE UP TO RESTROOM AND THEN TO BED. PT UP TO RESTROOM. PASSESS GAS AND VOIDS, NO BM NOTED. PT BACK TO BED. NG TUBE TO LOW INTERMITTANT SUCTION. NO ADDITIONAL REQUESTS OR COMPLAINTS. CALL LIGHT WITHIN REACH.
--- NOTE | 2019-11-14 19:20 | NUR ---
REPORT RECEIVED FROM DAY SHIFT RN. PT LYING IN BED, ALERT AND ORIENTED. NGT PATENT DRAINING SCANT AMOUNT OF DARK BROWN DRAINAGE. HOB 30 DEGREES. PT DENIES FURTHER NEEDS AT THIS TIME. WHITE BOARD UPDATED. PT EXPRESSES UNDERSTANDING OF NURSE CALL LIGHT. CALL LIGHT IN REACH.
--- NOTE | 2019-11-14 21:00 | NUR ---
PATIENT WAS UP TO THE BATHROOM 1 PA USING WALKER. PATIENT IS BACK IN BED.
--- NOTE | 2019-11-14 21:00 | NUR ---
PT REQUESTING SLEEP AID. DR. VALENZUELA AWARE. NEW ORDERS RECEIVED.
--- NOTE | 2019-11-14 22:00 | NUR ---
EVENING ASSESSMENT COMPLETE. EVENING MEDS PROVIDED. NGT CLAMPED AND APPLE JUICE GIVEN DUE TO CBG OF 87. PT SLOW TO SWALLOW BUT NO CHOKING OR ASPIRATION NOTED. PRN ADMINISTERED FOR PAIN AND SLEEP. IVF INFUSING. WARM BLANKET PROVIDED. NO FURTHER NEEDS AT THIS TIME. CALL LIGHT IN REACH.
--- NOTE | 2019-11-15 00:10 | NUR ---
PT RESTING IN BED WITH EYES CLOSED, NAD.
--- NOTE | 2019-11-15 01:07 | NUR ---
PATIENT SEEN UP SITTING BY THE BED. ASSISTED TO THE BATHROOM. PATIENT IS BACK SITTING BY THE BED. PATIENT STATEd,"I will sit for a little bit". PATIENT C/O PAIN IN BACK, NECK AND HIP. STATED if" CAN HAVE ASPIRIN". PRIMARY RN NOTIFIED. NGT BACK ON. CALL LIGHT IN REACH.
--- NOTE | 2019-11-15 01:28 | NUR ---
CHECKED ON PATIENT. PATIENT STILL WANTS TO SIT BY THE BED.
--- NOTE | 2019-11-15 01:31 | NUR ---
NOTIFIED REGARDING BLOOD SUGAR OF 74. NEW ORDERS RECEIVED. VERIFIED WITH READ BACK METHOD.
--- NOTE | 2019-11-15 01:49 | NUR ---
PT LYING IN BED NOW. HOB ELEVATED. NGT PATENT. PRN GIVEN FOR PAIN. IVF RATE INCREASED PER MD ORDER.
--- NOTE | 2019-11-15 02:08 | NUR ---
SPO2 88-90%. O2 2L/NC PLACED.
--- NOTE | 2019-11-15 04:35 | NUR ---
SPO2 94% ON 2L/NC. RR EVEN AND UNLABORED. PT REPOSITIONED IN BED. DENIES NEEDS. CALL LIGHT IN REACH.
--- NOTE | 2019-11-15 06:22 | NUR ---
PT FEELING "WEAK" AND DIAPHORETIC. CBG 51. DEXTROSE GIVEN PER EMAR. PT SITTING IN RECLINER AT THIS TIME. ALERT AND ORIENTED. NGT PATENT WITH LIGHT GREEN DRAINAGE.
--- NOTE | 2019-11-15 06:37 | NUR ---
IN ROOM TO RECHECK PT'S BG. HE IS NOW AT 92 AND REPORTS FEELING MUCH BETTER. HE IS SITTING IN THE CHAIR AND DENIES FURTHER NEEDS AT THIS TIME. CALL LIGHT IS CLOSE.
--- NOTE | 2019-11-15 07:08 | NUR ---
REPORT RECEIVED FROM YARA SWANSON. PT UP TO CHAIR. PT REPORTS PAIN IS "BETTER UP IN THE CHAIR. NG TUBE TO LOW INTERMITTANT SUCTION. NG TUBE COMING LOOSE FROM PTS NOSE AND SLIPPING OUT. NEW SECURMENT DEVICE ATTACHED. PT NPO AT THIS TIME. PT REQUESTS HOT TEA. EDUCATION DONE REGARDING NPO STATUS. PT UPDATED ON PLAN OF CARE. CALL LIGHT WITHIN REACH. NO ADDITIONAL REQUESTS OR COMPLAINTS AT THIS TIME.
--- NOTE | 2019-11-15 07:17 | NUR ---
DR. VALENZUELA CALLED REGARDING PTS BLOOD SUGAR VALUES. NEW ORDERS TO START PATIENT ON D10 WATER. ORDERS PLACED. DR VALENZUELA ALSO STATES TO CLAMP NG TUBE AND ADMINISTER PO MORNING MEDICATIONS.
--- NOTE | 2019-11-15 08:07 | NUR ---
MORNING ASSESSMENT AND MEDICATION DUE. 1PA, FWW UP TO CHAIR. BLOOD SUGAR CHECKED = 80. NEW FLUIDS HUNG. PT REPORTS 7/10 PAIN, SEE MAR FOR MEDICATION GIVEN. PT DENIES NAUSEA. NG TUBE CLAMPED FOR MORNING MEDICATION. MEDICATIONS GIVEN ONE AT A TIME. SWALLOWING DIFFICULTIES NOTED. PT ASSISTED WITH SWALLOWING TECHNIQUES. ASSESSMENT DONE. CORSE LUNG SOUNDS IN BASES. ABDOMEN REMAINS DISTENDED AND TIGHT. MINIMAL BOWEL TONES HEARD. MEDICATIONS GIVEN PER DR. VALENZUELA'S INSTRUCTIONS. PT ANTICIPATING PROCEEDURE LATER THIS MORNING. EDUCATION DONE WITH PT. PTS , FELA UPDATED BY TELEPHONE. FELA STATES HER QUESTIONS HAVE BEEN ANSWERED. PT REMAINS UP TO CHAIR. NG TUBE REMAINS CLAMPED. NO ADDIITONAL REQUESTS OR COMPLAINTS AT THIS TIME. CALL LIGHT WITHIN REACH.
--- NOTE | 2019-11-15 08:54 | NUR ---
OR CALLS AND STATES THEY WILL BE DOWN TO TAKE PT FOR PROCEEDURE AT 0915. OR CHARGE CALLED REGARDING ENEMAS. MONICA, OR CHARGE STATES TO GIVE ONE ENEMA NOW AND THE 2ND WILL BE GIVEN IN DAY SURGERY SETTING. WARM TAP WATER ENEMA GIVEN PER PROTOCOL. PT ABLE TO TAKE 20 OUNCES IN PER RECTUM. PT TOLERATED PROCEEDURE WELL. DR. VALENZUELA TO BEDSIDE FOR ROUNDS. PT REPORTS 7/10 PAIN. SEE MAR FOR MEDICATION GIVEN. PT RESTING IN BED. BED RAILS UP. CALL LIGHT WITHIN REACH.
--- NOTE | 2019-11-15 09:48 | NUR ---
POWERHOUSE ENGINEER , MONICA, HERE TO TAKE PT FOR PROCEEDURE. REPORT GIVEN. D10 WATER TRAVELING WITH PT. BLOOD SUGAR CHECKED NOW 92. PT TRANSFERES SELF WITH 1PA OVER TO BED. MONICA STATES HIS QUESTIONS HAVE BEEN ANSWERED. WARM BLANKETS PROVIDED.
--- NOTE | 2019-11-15 10:45 | NUR ---
Pt out of room for colonoscopy.
--- NOTE | 2019-11-15 11:46 | CONS ---
[facility] [address], [place] [address] Signed DATE OF CONSULTATION: 11/14/2019 REQUESTING PHYSICIAN: Michael Gómez MD. PROBLEM: Recurrent colonic distention, abdominal pain, mental status changes. HISTORY OF PRESENT ILLNESS: This 79-year-old white man is known to me from the distant past, having undergone Port-A-Cath placement for chemotherapy for head and neck cancer. This was well over 10 years ago. Additionally, I performed a left inguinal hernia repair on him in 2013, 6 years ago. The patient has extensive past medical history in the past few years, which has included recently admission to the hospital for mental status changes, thought related to possible (but not complete), chronic opioid side effects with sedation and presentation to the emergency room on November 12 at approximately 5:30 p.m. He was admitted by Dr. Gómez for altered mental status after Narcan had been administered at home, which showed improvement of his mental status, but not complete clearance of it. His evaluation in the emergency room by Dr. Abraham and subsequently Dr. Gómez confirmed him to have some electrolyte abnormalities including hyponatremia with a sodium of 125 and a potassium of 4.9. Normal creatinine of 0.78. He was noted to have abdominal distention and he underwent a plain abdominal x-rays showing colonic distention, and subsequently a CT scan of the abdomen and pelvis today at approximately 12:40 p.m. This demonstrated significant dilation of the proximal colon, proximal to the sigmoid and no sign of neoplasm causing obstruction or sign of fecal impaction proper. There was a fair amount of liquid stool within the more proximal colon with decompression of the sigmoid itself. This did not appear to the radiologist to be an obstruction per se. I reviewed the films with Dr. Choi earlier today. Notable arterial calcifications were noted also. Comparison of a CT scan performed on February 23, 2019, showed dilation of the colon at that time as well. The patient is lucid this evening upon our discussion and notes that he has had this abdominal distention for the past 6 days or so. He does have some increased abdominal pain, but it is not focal. A nasogastric tube has been placed, which shows decompression of stomach and only a small amount of vega type fluid. There is no sign of blood. He is considered to have an impressive remission despite prior squamous cell carcinoma of the head and neck with the multiple chemotherapeutic and radiation efforts undertaken for it. Notably, he last underwent a neck CT angiogram on November 12, which showed Electronically Signed By: MANAS CHEN MD 11/15/19 1146 PATIENT NAME: STEVE GOMEZ CONSULTATION DATE OF : 42 REPORT #: [id number] PHYSICIAN: MANAS CHEN MD PCP: NIEVES ARMANDO MD REPORT IS CONFIDENTIAL AND NOT TO BE RELEASED WITHOUT AUTHORIZATION [facility] [address], [place] [address] Signed moderate atherosclerotic plaque formation of both carotid bifurcations with mild stenosis of the proximal right internal carotid, moderate stenosis in the proximal left internal carotid (65%). There is moderate stenosis of the origin of the vertebral arteries bilaterally. The major vessels of the [place] appeared to be patent. At present this evening, he is generally resting comfortably with nasogastric tube in place and persistent abdominal distention. SOCIAL HISTORY: He is . His , Katherine, is known to me from the past. He has 2 adult sons. 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 REVIEW OF SYSTEMS: He denies any shortness of breath or actual chest pain. His abdominal pain is vague, nonfocal and not severe at least at this time. PHYSICAL EXAMINATION: GENERAL: This is a very debilitated white man, looks far older than his age of 79. VITAL SIGNS: Temperature 97.7, pulse is 64, respirations 20, blood pressure 170/66. His O2 saturations 99% on room air, most recently. HEENT: He opens his mouth wide without problem. He has somewhat full face, likely related to prior steroid use with which I am familiar. He has a thin body habitus otherwise. CHEST: Shows normal respiratory excursion without tachypnea. ABDOMEN: Has a "pot belly" appearance, which on palpation shows no sign of tenderness actually. It is somewhat tense and distended. Admittedly, however. EXTREMITIES: No signs of edema. LABORATORY STUDIES: Today show white count of 8.6, hematocrit 39.2, platelets 121,000. Chem profile from November 13 today showed a sodium 129, potassium 5.2, chloride 95, creatinine 0.87, glucose 110, calcium 8.5, total bilirubin 1.1, alkaline phosphatase 183. Lactate dehydrogenase 199, myoglobin 17, troponin 0.022 on November 12. Urinalysis showed a specific gravity of 1.060. Coag studies show an INR of 1.0, PTT is 30. COVID-19 test is negative. I have reviewed his CT scan and plain abdominal x-rays. Plain abdominal x-rays do show a nasogastric tube in the stomach. His CT scan showed a markedly dilated right transverse and portion of left colon with narrowing in the area of the sigmoid, but without sign of neoplasm proper nor sign of stool impaction there. There is probable liquid stool proximally, particularly in the cecum area. ASSESSMENT AND PLAN: The patient has opioid dependency of longstanding related to therapy for cancer in the past. He does have hypertension, for which he takes multiple medications including hydralazine and labetalol. Additionally, he is constipated on a routine basis and Electronically Signed By: MANAS CHEN MD 11/15/19 1146 PATIENT NAME: STEVE GOMEZ CONSULTATION DATE OF : 42 REPORT #: [id number] PHYSICIAN: MANAS CHEN MD PCP: NIEVES ARMANDO MD REPORT IS CONFIDENTIAL AND NOT TO BE RELEASED WITHOUT AUTHORIZATION [facility] [address], [place] [address] Signed though he takes MiraLAX on a daily basis as well as Senokot, does routinely give self enemas. Indeed, he does have likely chronic constipation probably related to use of opiates on a routine basis. His home medication includes baclofen, gabapentin, [place] routinely taken q.4 hours one tab, Motrin. His picture is highly consistent with an [place]'s like syndrome (colonic pseudo obstruction). Though his sigmoid colon is decompressed, there appears to be no evidence of colonic volvulus in any way or small bowel obstruction proper. I doubt that he has a neoplasm of the sigmoid. There is no actual mass noted. He has had no intervention that would lead to a stricture of the sigmoid. On that basis, I would recommend consideration of a decompressive colonoscopy tomorrow. We will review with Dr. Gómez, but consideration might be made for enema therapy in the morning with decompressive colonoscopy to follow. A nasogastric tube is well indicated as swallowed air would "stack" on the already functionally obstructive appearance of the colon and despite no sign currently of small bowel distention or obstruction. The risks of bleeding, infection, and perforation were reviewed with him in detail. He understands. Of note, other incidental findings on the CT scan include a probable splenic cyst marked, and extensive atherosclerotic calcification of the aorta and iliac arteries and somewhat atrophied cortices of the kidneys proper. We will review with Dr. Gómez anticipating this plan for tomorrow. Electrolytes will be evaluated as well, particularly as regards hyperkalemia and hyponatremia. Manas Chen MD /MODL /[id number] Copies: ~ Electronically Signed By: MANAS CHEN MD 11/15/19 1146 PATIENT NAME: STEVE GOMEZ CONSULTATION DATE OF : 42 REPORT #: [id number] PHYSICIAN: MANAS CHEN MD PCP: NIEVES ARMANDO MD REPORT IS CONFIDENTIAL AND NOT TO BE RELEASED WITHOUT AUTHORIZATION
--- NOTE | 2019-11-15 12:00 | NUR ---
PRE RETURNED FROM PACU. REPORT RECEIVED FROM YARA WINSTON. PT RESTING ON BACK IN BED. PT REPORTS NAUSEA AND 7/10 PAIN. SEE MAR FOR MEDICATION GIVEN. ASSESSMENT DONE. LUNG SOUNDS CLEAR TO DEMINISHED. TELE MONITORING RESTARTED. PACED RHYTHEM IN THE 60'S. BOWEL TONES HEARD. ABDOMEN DISTENDED AND CONTINUES TO BE TIGHT. PO MAGNESIUM CITRATE STARTED, PT HAVING DIFFICULTY SWALLOWING DOSE. GRUNTS AND CLEARS THROAT WITH SWALLOWS. WILL CONTINUE TO MONITOR AND ATTEMPT COMPLETION OF DOSE. CGB = 164, 1 UNIT OF INSULIN GIVEN. D10 WATER CONTINUES INFUSING. WILL CONSULT MD. PT WEANED TO ROOM AIR WITH O2 SATURATIONS ABOVE 93%. NO ADDITIONAL REQUESTS OR COMPLAINTS. PT ALLOWED TO REST. CALL LIGHT WITHIN REACH.
--- NOTE | 2019-11-15 12:17 | NUR ---
11/15/19 1217 Clau Nevarez 1039 PT ARRIVED IN PACU SLEEPY WITH NO C/O'S. NG TO [facility].
--- NOTE | 2019-11-15 12:44 | NUR ---
DR. VALENZUELA CALLED AND UPDATED REGARDING PTS BLOOD SUGAR AND LOWERED HEART RATE. NEW FLUID ORDERS. NEW FLUIDS HUNG. D10 WATER DC'D. 1PA UP TO RESTROOM. TELE LEADS CHANGED. PT UP TO CHAIR. WARM BLANKETS PROVIDED. NO ADDITIONAL REQUESTS OR COMPLAINTS. CALL LIGHT WITHIN REACH.
--- NOTE | 2019-11-15 13:44 | NUR ---
PT SITTING IN CHAIR, WRAPPED IN BLANKETS. PT RESPONDS TO MY VOICE, ANSWERS QUESTIONS WITH SHORT SENTENCES. VOICE SEEMS RATHER GRAVELLY-PT HAD JUST RETURNED FROM [place] FOR SCOPE. DID NOT WANT TO LINGER LONG TO ALLOW PT TO REST AFTER HIS BUSY AM. GAVE BLESSING, PT THANKED ME
--- NOTE | 2019-11-15 14:24 | NUR ---
PTS CALLED FOR UPDATE. NO ANSWER THIS TIME.
--- NOTE | 2019-11-15 14:46 | NUR ---
MEDICATIONS DUE. PT UP TO CHAIR, RESTING WITH EYES CLOSED. PT AWAKENS TO MOVMENT IN THE ROOM. PT REPORTS NASUEA IS "A LITTLE" BETTER. MEDICATIONS GIVEN. PTS FELA ON PHONE, UPDATED PER PT REQUEST. FELA STATES HER QUESTIONS HAVE BEEN ANSWERED. NO ADDITIONAL REQUESTS OR COMPLAINTS. CALL LIGHT WITHIN REACH.
--- NOTE | 2019-11-15 14:47 | NUR ---
CALLED MS TO DISCUSS ORDERS FOR SWALLOW EVAL @6800. NSG ENID WAS PERFORMING PT CARE WITH ANOTHER PT SO THIS THX SPOKE TO CHARGE NURSE. CHARGE NURSE INFORMED ME THAT TYRELL IS ON CLEAR LIQUIDS ONLY RIGHT NOW DUE TO UPCOMING PROCEDURE AND IS NOT ABLE TO FULLY PARTICIPATE IN FEEDING EVALUATION TODAY. WILL ATTEMPT TO ASSESS TOMORROW. ALSO DISCUSSED MBSS WITH CHARGE NURSE QUESTIONING IF IT WOULD BE CONTRAINDICATED WITH HIS CHRONIC CONSTIPATION/DISTENSION AND SHE SAID IT LIKELY WOULD BE WE CAN REASSESS PT IMPROVES.-
--- NOTE | 2019-11-15 15:14 | NUR ---
PT REPORTS NAUSEA AND REQUESTS TO GET BACK TO BED. 1PA BACK TO BED. SEE MAR FOR MEDICATION GIVEN FOR NASUEA. RESPIRATORY THERAPY TO BEDSIDE TO SET UP CPAP. BED RAILS UP. CALL LIGHT WITHIN REACH.
--- NOTE | 2019-11-15 17:02 | NUR ---
AFTERNOON ASSESSMENT DUE. PT CONFUSED AND DISORIRIENTED AFTER RECEIVING PHENEGRAN. PT ATTEMTPING TO CLIMB OUT OF BED. PT EASILY REORITENTED. 1PA, FWW UP TO BATHROOM. PT UP TO CHAIR FOR A BRIEF TIME AND THEN BACK TO BED. ASSESSMT DONE. ABDOMEN CONTINUES TO BE DISTENDED. +2 EDEMA NOTED IN BLE. LUNG SOUNDS CLEAR TO DEMINISHED. PT DENIES NAUSEA AND REPORTS 6/10 PAIN BUT STATES HE DOES NOT NEED PAIN MEDICATIONS. VITALS TAKEN. MEDICATIONS GIVEN (SEE MAR). PT RESTING IN BED. WITH CPAP IN PLACE. BED RAILS UP. BED ALARM ON. CALL LIGHT WIHTIN REACH.
--- NOTE | 2019-11-15 17:30 | NUR ---
PTS FLUID BALANCE STATUS DISCUSSED WITH MD. NO NEW ORDERS AT THIS TIME.
--- NOTE | 2019-11-15 17:59 | NUR ---
PT HERE FOR METABOLIC ENCEPHALOPATHY. ORIENTED THIS SHIFT BUT FOR LATE AFTERNOON AFTER PHENEGRAN WAS GIVEN. PT REMAINS 1PA WITH FWW. NPO THIS MORNING AND TRANSITIONED TO CLEARS, NO APPITTIE. PT REPORTS NAUSEA, PRN MEDICATIONS GIVEN MULTIPLE TIMES. BOWEL DISTENTION REMAINS. DECOMPRESSION COLONOSCOPY THIS SHIFT. MAG CITRATE GIVEN WITH MINIMAL EFFECT. NG TUBE DC'D. PT REMAINS ON TELE# 5 WITH PACED RHYTHEM, BRADYCARDIA NOTED THIS SHIFT. HYPOGLYCEMIC EPISODE THIS SHIFT. PT TRASISTIONED TO D10 WATER FOR A TIME, HYPOGLYCEMIA RESOLVED. CPAP AT BEDSIDE. PT USES WITH COMFORT. INCREASING CONFUSION THIS EVENING, BED/CHAIR ALARM NECESSARY. FAMILY UPDATED MULTPILE TIMES. PT USES CALL LIGHT INCONSISTANTLY.
--- NOTE | 2019-11-15 18:51 | NUR ---
PT REPORT HUNGER, FEELING "WOOZY" AND STATES HE WOULD LIKE HIS BLOOD SUGAR CHECKED. CBG = 142. PT EATS 1 CUP OF JELLO AND REPORTS FEELING BETTER. PT UP TO CHAIR. CHAIR ALARM ON. CALL LIGHT WITHIN REACH. PT EASILY VIEWED FROM NURSES STATION.
--- NOTE | 2019-11-15 19:00 | NUR ---
SHIFT REPORT RECEIVED FROM JOCELIN ROSSI AT BEDSIDE. PT AWAKE AND RESTING IN CHAIR. IV FLUIDS INFUSING, SITE WNL. PT DENIES NEEDS, ALARM ON. CALL LIGHT IN REACH.
--- NOTE | 2019-11-15 20:30 | NUR ---
PT REORIENTED TO PLACE, BELIEVED HE WAS AT [facility]. PT STATES, "I FEEL DISORIENTED". PT REASSURED AND REORIENTED WELL DISCUSSED POC. CALL LIGHT IN REACH, PT IN VIEW OF NURSING STATION. CHAIR ALARM IN PLACE.
--- NOTE | 2019-11-15 20:35 | NUR ---
THIS RAILROAD INSPECTOR BROUGHT PATIENT BELONGINGS TO PATIENT IN ROOM FROM HACK DRIVER. RN SUGGESTS HELPING PATIENT SET UP HIS RADIO BUT PATIENT DECLINES, PATIENT STATES "I AM A LITTLE DISORIENTED, SO JUST SET IT ON THE BED FOR NOW". PATIENT CALLS RN TO ROOM, ASKS TO BE "MOVED TO THE ROOM I WAS IN SO I CAN STAY ORIENTED" RN REORIENTS PATIENT, PATIENT GIVEN WARM CHICKEN BROTH FOR COMFORT. PATIENT REMAINS IN BEDSIDE RECLINER, BELONGINGS AT BEDSIDE. NO FURTHER NEEDS AT THIS TIME.
--- NOTE | 2019-11-15 21:16 | NUR ---
ASSESSMENT COMPLETE, SCHEDULED MEDS GIVEN (SEE EMAR). PT A/O TO ALL BUT PLACE AT THIS TIME. REORIENTED BY THIS RN. CHAIR ALARM ON FOR SAFETY. CALLED AND PERSONAL BELONGINGS RETRIEVED FROM MAIN DESK. UPDATE PROVIDED TO . PT APPEARS COMFORTABLE AT THIS TIME, NO DISTRESS. CALL LIGHT IN REACH.
--- NOTE | 2019-11-15 22:42 | NUR ---
HELPED PT TO THE BATHROOM SO HE COULD URINATE AND BRUSH HIS TEETH. HELPED HIM FROM THE BATHROOM TO HIS BED WITH HIS FWW.PUT HIS TELE BACK ON AND HELPED HIM WITH HIS GOWN WELL. C-PAP PUT ON BY PT. BED ALARM SET. BEDSIDE TABLE AND CALL LIGHT IN REACH. PT APPEARS TO BE VERY CONFUSED , HE ASKED ME TO GET HIS FLASHLIGHT IN HIS BATHROOM DOWN THE FRANCES. I REMINDED HIM WE ARE AT THE HOSPITAL, HE SAID OH YA I KEEP FORGETTING THAT. PT NEEDS NOTHING MORE AT THIS TIME.
--- NOTE | 2019-11-16 00:05 | NUR ---
PT NPO, RESTING QUIETLY IN BED, EYES CLOSED. IV FLUIDS INFUSING, SITE WNL. CPAP IN PLACE, NO DISTRESS NOTED. BED ALRM ON, CALL LIGHT IN REACH.
--- NOTE | 2019-11-16 02:03 | NUR ---
ASSESSMENT COMPLETE, NO NEW CHANGES OR CONCERNS. PRN ACCUCHECK RESULT OF 109, D5LR INFUSING AT 100/HR, SITE REMAINS WNL. PT REMAINS DISORIENTED TO PLACE, REORIENTED PRN. DENIES NAUSEA AND PAIN, BT ACTIVE, ABDOMINAL DISTENSION REMAINS NOTED. NO ADDITIOANL NEEDS VERBALIZED, 0200 VSS. BED ALARM ON, CALL LIGHT IN REACH.
--- NOTE | 2019-11-16 05:03 | NUR ---
PT HAD A GOOD NIGHT OVERALL, DISORIENTED AT BEGINNING OF SHIFT BUT SLEPT FOR MOST OF SHIFT. VSS, TELE#[address], PACED. HOME CPAP MACHINE. BED/CHAIR ALARM ON TO ENSURE SAFETY. PT ON ADA DIET, MADE NPO AT MIDNIGHT DUE TO POSSIBLE COLONOSCOPY PER DAYSHIFT RN. IV FLUIDS INFUSING, SITE WNL. 1PA WITH FWW. ABDOMINAL DISTENTION REMAINS, PT DENIED NAUSEA, BT ACTIVE.
--- NOTE | 2019-11-16 05:41 | NUR ---
BED ALARM SOUNDING. FOUND PT WITH BLOOD ON HIS NOSE, ON HIS HANDS, ON THE CPAP MACHINE. HE CLEANED HIS NOSE UP, RN CLEANED OTHER AREAS, PT WANTED TO USE BATHROOM. SMEARS BM IN ATTENDS. POTATO GRADER IN WITH HIM, PRIMARY RN AWARE.
--- NOTE | 2019-11-16 05:51 | NUR ---
PT HAD RECENT MEDIUM BM PER PRINT BUYER TIMOTHY. CALLED TO ASSESS HAT IN BATHROOM. BLOOD TINGED TOILET PAPER NOTED IN HAT. JAH AREA AND RECTUM ASSESS, NO BLOOD NOTED. PT HAD RECENT BLOODY NOSE AND POSSIBLY PLACED IT IN HAT WHILE VOIDING. WILL MONITOR. PRINT BUYER IN ROOM TO COLLECT VS.
--- NOTE | 2019-11-16 05:58 | NUR ---
PT AWAKE AND RESTING IN BED, JES AGUIRRE IN ROOM COMPLETING ORAL CARE, AND WIPING FACE PREPARING PT FOR THE DAY. PT STATED, "I'M SO TURNED AROUND, I KNOW I'M NOT IN THE BED I NORMALLY SLEEP IN". PT ORIENTED TO PERSON, REORIENTED TO PLACE, DATE, AND TIME. PT STATES, "OH NO DID I HAVE A STROKE". DISCUSSED WITH PT CURRENT SITUATION AND THAT FELA WAS AWARE OF PT'S HOSPITALIZATION. PT THEN STATES. "OH GOOD". LAB IN ROOM FOR BLOOD DRAW.
--- NOTE | 2019-11-16 06:00 | NUR ---
PATIENT HAD BLOODY NOSE. RN AT BEDSIDE TO ASSIST, PATIENT AMBULATED TO BATHROOM TO VOID AND HAVE BM. LINENS CHANGED. PATIENT AMBULATED BACK TO BED, BED ALARM ON, LAB AT BEDSIDE. PATIENT ASSISTED WITH ORAL CARE AND WASHING HIS HANDS AND FACE WITH WARM WASH CLOTH. THERE WAS A SMALL BLOODY TISSUE IN TOILET AFTER VOID, RN TO BATHROOM TO ASSESS. UNABLE TO DETERMINE SOURCE. PATIENT CALL LIGHT IN REACH, BED RAILS UP X2. NO FURTHER NEEDS AT THIS TIME.
--- NOTE | 2019-11-16 06:38 | NUR ---
THIS RN IN ROOM TO ANSWER CALL LIGHT. PT STATES, "I FEEL LIKE I'M NOT GETTING ENOUGH OXYGEN". O2 SAT 89-90%, PT REPOSITIONED IN BED AND INSTRUCTED TO TAKE DEEP BREATH. PT DEMONSTRATING UNDERSTANDING, O2 SAT SUSTAINING AT 91-92%. CALL LIGHT IN REACH.
--- NOTE | 2019-11-16 07:18 | NUR ---
REPORT RECEIVED FROM YARA LEAL. PT RESTING IN BED. PT REPORTS HUNGER. PT DENIES SOB O2 AT 92% ON ROOM AIR. PT REORIENTD TO PLACE AND EVENTS. BED RAILS UP. BED ALARM ON. CALL LIGHT WITHIN REACH.
--- NOTE | 2019-11-16 07:52 | NUR ---
PATIENT BLOOD SUGAR CHECK IS DONE. PATIENT IS NOW SLEEPING. WILL COME BACK AND CHECK ON HIM.
--- NOTE | 2019-11-16 08:00 | NUR ---
PTS , FELA, CALLED FOR UPDATE. FELA STATES HER QUESTIONS HAVE BEEN ANSWERED. TELEPHONE CALL FORWARDED TO PTS ROOM SO FELA CAN VISIT WITH PATIENT. NO ADDITIONAL REQUESTS OR COMPLAINTS AT THIS TIME. CALL LIGHT WITHIN REACH. CHAIR ALARM ON.
--- NOTE | 2019-11-16 08:43 | NUR ---
MORNING ASSESSMENT AND MEDICATION DUE. PT RESTING IN BED. EYES NOTED TO HAVE POCKETS OF FLUIDS. MD TO BEDSIDE TO EXAMINE PTS EYES. ORDERS TO SALINE LOCK PT AT THIS TIME AND KEEP HEAD OF BED ELEVATED. IV SALINE LOCKED AT THIS TIME. PT UP TO RESTROOM WITH 1PA AND FWW. JAH CARE DONE. AM CARE DONE. PT UP TO CHAIR. LUNG SOUNDS CLEAR TO DEMINISHED. BOWEL TONES HEARD. ABDOMEN CONTINUES TO BE DISTENDED. EDKAILEY NOTED IN BLE. SPEECH THERAPIST TO BEDSIDE AND STATES PT WILL NEED TEXTURE TRIALS BEFORE ADVANCING DIET. MEDICATIONS GIVEN. OR CALLED WITH MESSAGE TO DR. CHEN REGARDING PLAN OF CARE. PT REMAINS NPO EXCEPT FOR MEDICATIONS. I.S. USE DEMONSTRATED REACHING 750ML. NO ADDITIONAL REQUESTS OR COMPLAINTS AT THIS TIME. CALL LIGHT WITHIN REACH. CHAIR ALARM ON.
--- NOTE | 2019-11-16 09:03 | NUR ---
HELPED PATIENT WALK TO THE BATHROOM. HELPED HIM PUT ON HIS UNDERWEAR. PATIENT IS NOW SITTING UP IN HIS CHAIR. WITH WARM BLANKETS ON. ALSO BED LINENS WERE CHANGED.
--- NOTE | 2019-11-16 10:15 | NUR ---
Spoke with Ti. He complains of not feeling well in general. C/o abd. distention. Notified by Dr. Newman and family are calling and insisting on visiting. Discussed with Dr. Newman and Dr. Bocanegra possibility of TC for this patient as he is deconditioned and both he and he feel he needs PT. Notified Dr. Newman, I will call the and discuss policy for no visitation. Pt was discussed in IDT at 0830.
--- NOTE | 2019-11-16 10:20 | NUR ---
THIS RN TO ROOM TO CHECK ON PT. PT UP TO CHAIR, RESTING WITH EYES CLOSED, RR = 20. FELA, PTS CALLED FOR UPDATE. STATES SHE IS TALKING WITH CASE MANAGEMENT AND WILL CALL BACK. AWAITING RETURN CALL. NO ADDIITONAL REQUESTS OR COMPLAINTS AT THIS TIME. CALL LIGHT WITHIN REACH.
--- NOTE | 2019-11-16 10:50 | NUR ---
Called and spoke with pt's Katherine. Answered all questions regarding visitation. She states sons were planning on calling the governor for visitation. Discussed we are following the governor's rules and the [facility]. Discussed this is a safety precaution for all as it protects him as well as his family. Discussed face time and she plans on bringing a lap top to the hospital. Discussed transitional care and SNF. She would prefer he have TC and does not want him to go to a SNF. Informed this can be discussed his when he get to the point of discharge. I will leave a TC brochure at the front of the hospital and she will pick up operator when she brings her lap top.
--- NOTE | 2019-11-16 11:24 | NUR ---
PTS , FELA, CALLED FOR UPDATE. FELA STATES HER QUESTIONS HAVE BEEN ANSWERED AND REPORTS SHE PLANS TO BRING AN I-PAD INTO PATIENT FOR SKYPE VISITS. PT RESTING IN CHAIR WITH EYES CLOSED. RR = 20. CALL LIGHT WITHIN REACH. CHAIR ALARM ON.
--- NOTE | 2019-11-16 12:12 | NUR ---
NOON ASSESSMENT AND MEDICATIONS DUE. PT UP TO CHAIR. REPORTS 6/10 PAIN THAT "IS GETTING BETTER." SEE MAR FOR MEDICATION GIVEN. PT CONTINUES TO HAVE SWALLOWING DIFFICULTIES, CHIN TUCK ENCORUAGED. SPEECH THERAPIST STATES SHE WOULD LIKE TO CONTINUE WITH A TETURE SWALLOW EVALUATION AFTER PT IS ADVANCED FROM CLEAR LIQUIDS. ASSESSMENT DONE. FINE CRACKELS NOTED IN BASES, I.S. USE DEMONSTRATED REACHING 750ML. ABDOMNEN CONTINUES TO BE DISTENDED. PT REPORTS FEELING "FULL." 1PA BACK TO BED. PT RESTING WITH EYES CLOSED. CPAP IN PLACE.MEDICATION GIVEN. BED RAILS UP. BED ALARM ON. CALL LIGHT WITHIN REACH.
--- NOTE | 2019-11-16 13:11 | OR ---
[facility] [address], [place] [address] Signed DATE OF OPERATION: 11/15/2019 SURGEON: Manas Chen MD PREOPERATIVE DIAGNOSES: Recurrent colonic distention in proximal colon, decompression at sigmoid, assessed for a neoplasm or obstruction including stricture. POSTOPERATIVE DIAGNOSES: 1. Small polyp of rectum. 2. No evidence of neoplasm or stricture with obstruction of sigmoid in any way. PROCEDURES: 1. Total colonoscopy with decompression. 2. Hot snare polypectomy of low rectal polyp. ANESTHESIA: Intravenous sedation propofol infusion; Beatriz Harmon CRNA. INDICATION: A 79-year-old debilitated white man, was admitted by Dr. Gómez with mental status changes and found on abdominal x-ray to have abdominal distention, which was somewhat uncomfortable for him. A CT scan was performed, which showed a markedly dilated right colon and transverse and portion of left with decompression of the sigmoid and rectum. The patient does take opiates on a routine basis long-standing ([place] and has been given Relistor without obvious benefit thus far. A nasogastric tube was placed for decompression of his GI tract. He has undergone a tap water enema this morning and electrolytes including hyponatremia, hyperkalemia and hypomagnesemia have been corrected and he is now to undergo colonoscopy for decompression and to assess that there is no mechanical obstruction of the sigmoid in the left colon. He understands as does his the risks of bleeding, infection, and perforation related to this and wished to proceed. FINDINGS: The single tap water enema was adequate for preparation distally. Scope was passed well beyond the sigmoid to the transverse and right colon. A cavernous appearing colon was noted with gelatinous stool in the more proximal portions. There was no sign of obstructing lesion of the sigmoid or left colon. Decompression was attempted twice, but with little obvious clinical decompression of abdominal distention by the end. There was a sessile polyp of the rectum, which was excised with hot snare polypectomy Electronically Signed By: MANAS CHEN MD 11/16/19 1311 PATIENT NAME: STEVE GOMEZ OPERATIVE REPORT DATE OF : 42 REPORT #: [id number] PHYSICIAN: MANAS CHEN MD PCP: NIEVES ARMANDO MD REPORT IS CONFIDENTIAL AND NOT TO BE RELEASED WITHOUT AUTHORIZATION [facility] [address] [place] [id number] Signed technique as well. DESCRIPTION OF PROCEDURE: The patient was brought into the endoscopy suite and placed in lateral decubitus position. He was assessed by the aircraft engine technician to be an ASA class 4E. He was given intravenous sedation with full cardiopulmonary monitoring. Digital rectal examination was normal. An Olympus video colonoscope was passed in the rectum, immediately noted was a somewhat sessile polyp that was adenomatous. The scope was passed beyond this, through rectosigmoid and sigmoid and with minimal air insufflation as possible using mostly irrigation. Scope was passed beyond this area ultimately to the left transverse colon where more a cavernous appearing colon was noted. There was no sign of solid stool, liquid and gelatinous stool. Scope was advanced beyond this to the hepatic flexure and to the right colon as far as possible where the amount of stool became more problematic. Irrigation was undertaken. Biopsies were taken distally as there appeared to be mild inflammation of the more proximal colon. Decompression of the colon was undertaken upon withdrawal of scope, minimizing air and maximizing irrigation. At the rectum, the sessile polyp was once again identified and was excised with hot snare polypectomy technique and passed for pathology. Clinical examination of his abdominal wall showed still quite fair amount of distention, though softer. Reintroduction of scope was undertaken winding through the colon once again performing decompressive maneuvers as best could be. Still there was not a lot of obvious diminishment of his abdominal distention, certainly not fully decompressed as had been hoped. The patient was then taken to the recovery room for further monitoring. CONCLUDING DIAGNOSIS: No evidence of obstructing lesion of the sigmoid or the left colon. 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 Discussed with Dr. Gómez, the idea of neostigmine administration; his general infirmity might preclude that given the risk profile of that medication intravenously administered. We will initiate magnesium citrate orally and discontinue the nasogastric tube at this point. MD KIARA Gonzalez/MODL /[id number] Electronically Signed By: MANAS CHEN MD 11/16/19 1311 PATIENT NAME: STEVE GOMEZ OPERATIVE REPORT DATE OF : 42 REPORT #: [id number] PHYSICIAN: MANAS CHEN MD PCP: NIEVES ARMANDO MD REPORT IS CONFIDENTIAL AND NOT TO BE RELEASED WITHOUT AUTHORIZATION [address] [address] Signed cc: MD Ivory Dave MD William S. Powell, MD Copies: IVORY GÓMEZ WILLIAM S MD ~ Electronically Signed By: MANAS CHEN MD 11/16/19 1311 PATIENT NAME: STEVE GOMEZ OPERATIVE REPORT DATE OF : 42 REPORT #: [id number] PHYSICIAN: MANAS CHEN MD PCP: NIEVES ARMANDO MD REPORT IS CONFIDENTIAL AND NOT TO BE RELEASED WITHOUT AUTHORIZATION
--- NOTE | 2019-11-16 13:34 | NUR ---
CAME IN TO DO PATIENT'S VITALS. HE SAID HE WOULD LIKE TO GET UP AND GO TO THE BATHROOM THAN SET UP IN HIS CHAIR.
--- NOTE | 2019-11-16 13:37 | NUR ---
Received call from Katherine and she asks if there is any way for her to come and stay in the room with Ti. She states she will have a covid test. Again discussed, this does not follow the guidelines for visitation. Also informed if he eventually goes to , there is 0 visiting. She has questions of what to do as pt's decline and require assist. Gave her the phone number for [facility], instructed on site for [facility] CG, and encouraged her to ask friends if they know of cg. Discussed it is a slow process to higher a cg in [place] and the sooner she starts the better.
--- NOTE | 2019-11-16 13:46 | NUR ---
THIS RN TO ROOM TO CHECK ON PATIENT. PT REPORTS 6/10 PAIN AND REQUESTS PAIN MEDICAITON. MD STATES TO TRY NON OPIOID OPTIONS FIRST. HEAT PACK PROVIDED. GAPABENTIN GIVEN. PT ASSISTED WITH CALLING HIS . FELA, PTS UPDATED BY TELEPHONE. FELA STATES HER QUESTIONS HAVE BEEN ANSWERED. NO ADDITIONAL REQUESTS OR COMPLAINTS AT THIS TIME. CALL LIGHT WITHIN REACH.
--- NOTE | 2019-11-16 16:02 | NUR ---
AFTERNOON ASSESSMENT DUE. PT UP TO CHAIR. PT REQUESTS TO GET UP TO AMBULATE. 1PA FWW UP TO AMBULATE AROUND 1 LAP OF FRANCES WITH THREE REST BREAKS USING WHEELCHAIR. PT TOLERATED AMBULATION WELL. PT UP TO CHAIR. ASSESSMENT DONE. LUNG SOUNDS CLEAR TO DEMINISHED. ABDOMEN SOFTER, REMAINS DISTENDED. PT REPORTS HUNGER. JELLOW, BROTH AND JUICE PROVIDED. PT REPORTS 6/10 PAIN, SEE MAR FOR MEDICATIONS GIVEN. PT ASSISTED WITH CALLING HIS ON FACE TIME. AND PT EXPRESS GRATITUDE FOR ASSISTANCE. VITALS TAKEN WITH MEDICATIONS. NO ADDITIONAL REQUESTS OR COMPLAINTS. CALL LIGHT WITHIN REACH. PT REMAINS UP TO CHAIR, LOOKING OUT WINDOW. CHAIR ALARM ON.
--- NOTE | 2019-11-16 17:43 | NUR ---
THIS RN TO ROOM TO CHECK ON PT. PT UP TO CHAIR EATING JELLOW, BROTH AND ENSURE FOR DINNER. PT REPORTS 5/10 PAIN THAT IS TOLERABLE AT THIS TIME. INSULIN GIVEN. PT DENIES ADDITIONAL REQUESTS OR COMPLAINTS. ORIENTED TO ALL. CALL LIGHT WITHIN REACH.
--- NOTE | 2019-11-16 17:57 | NUR ---
PT HERE FOR METABOLIC ENCEPHLOPATHY. OREINTED X4 THIS SHIFT. PT UP TO AMBULATE IN FRANCES X1 LAP TWICE THIS SHIFT. PT TOLERATING CLEAR LIQUID DIET WITH NO NAUSEA THIS SHIFT. SCHEDULED REGLAN STARTED. NO BOWEL MOVEMENT THIS SHIFT. PT REPORTS HE IS "FEELING BETTER." TELE #5 IN PACED RHYTHEM THIS SHIFT WITH HEART RATE IN 50-70'S. BLOOD SUGARS TAKEN WITH MEALS, INSULIN GIVEN PER SLIDING SCALE THIS SHIFT. DAILY WEIGHT ORDERS ADDED. SPEECH THERAPIST WOULD LIKE NOTIFIECTION WHEN PT IS ADVANCED TO REGULAR DIET SO TEXTURE SWALLOW EVAULATION CAN BE COMPLETED. PTS FAMILY UPDATED MULTIPLE TIMES. NEW EDEMA IN SCLERA OF EYES. PT NOW SALINE LOCKED. CPAP DURING TIMES OF REST/SLEEP. BED/CHAIR ALARM FOR SAFETY. PT NOT VOIDING QUANTITY SUFFICIENT, MD AWARE. PT USES CALL LIGHT INCONSISTANTLY.
--- NOTE | 2019-11-16 18:03 | NUR ---
MD NOTIFIED OF PTS VOIDING STATUS. NO NEW ORDERS AT THIS TIME.
--- NOTE | 2019-11-16 19:00 | NUR ---
SHIFT REPORT RECEIVED FROM [facility] YARA ROSSI AT BEDSIDE. PT RESTING QUIETLY IN BED WITH EYES CLOSED, RR EVEN AND UNLABORED. CALL LIGHT IN REACH. CHAIR ALARM ALSO ON. BOARD UPDATED.
--- NOTE | 2019-11-16 20:20 | NUR ---
PT CALLED SAYING HE MISSED A PHONE CALL. PHONE IS CLOSE TO HIM, NOT SURE WHO CALLED. PT WILL KEEP PHONE CLOSE INCASE THEY CALL BACK. PT STATES HE IS STARTING TO HURT. WILL CHECK WITH PRIMARY RN ABOUT PAIN MEDS. CALL LIGHT IS CLOSE AND CHAIR ALARM IS ON.
--- NOTE | 2019-11-16 20:45 | NUR ---
ASSESSMENT COMPLETE, SCHEDULED MEDS GIVEN ALONG WITH PRN TYLENOL FOR 5/10 GENERALIZED PAIN (SEE EMAR). PT A/O AT THIS TIME TO PERSON, PLACE, AND DATE. INTERACTIVE WITH NURSING STAFF AND COMPLIANT WITH CARE. VSS AND I&O'S DONE. PT UP 1PA WITH FWW AND BACK TO BED. ALARM ON. PT WILL CALL WHEN READY FOR CPAP MACHINE. CALL LIGHT IN REACH.
--- NOTE | 2019-11-16 22:06 | NUR ---
RT GLOVER IN ROOM TO ASSIST PT WITH HOME CPAP MACHINE.
--- NOTE | 2019-11-16 23:38 | NUR ---
THIS RN IN ROOM TO ANSWER CALL LIGHT. WARM BLANKET PROVIDED. NO FURTHER NEEDS, HOME CPAP MACHINE REMAINS IN PLACE. BED ALARM IN PLACE, CALL LIGHT IN REACH.
--- NOTE | 2019-11-17 01:22 | NUR ---
PT RESTING IN BED WITH EYES CLOSED, RR EVEN AND UNLABORED. NO DISTRESS OR SIGNS OF PAIN NOTED. BED ALARM ON, CPAP REMAINS IN PLACE. CALL LIGHT IN REACH.
--- NOTE | 2019-11-17 02:06 | NUR ---
PER REQUEST OF YARA LEAL I DID A BLOOD SUGAR. PT DID NOT WAKE UP I DID IT. CHARTED IN COMPUTER AND INFORMED HIS RN.
--- NOTE | 2019-11-17 03:22 | NUR ---
PT RESTING IN BED, EYES CLOSED. RESPIRATIONS EVEN AND UNLABORED. NO DISTRESS NOTED, CALL LIGHT IN REACH. CPAP MACHINE IN PLACE, BED ALARM ON.
--- NOTE | 2019-11-17 03:54 | NUR ---
PT HAD A GOOD NIGHT, SLEPT OFF AND ON THIS SHIFT. USES HOME CPAP MACHINE. PT ORIENTED AND USED CALL LIGHT APPROPERIATELY, BED/CHAIR ALARM ON TO ENSURE SAFETY. CLEAR LIQUID ADA DIET, TOLERATING WELL. SCHEDULED ACCUCHECKS W/ INSULIN SS. DENIED NAUSEA. PAIN CONTROLLED WITH PRN PAIN MEDICATIONS.
--- NOTE | 2019-11-17 04:33 | NUR ---
TELE BATTERY REPLACED, ASSESSMENT ALSO DONE. NO NEW CHANGES OR CONCERNS. TELE#[address], HR 60-70'S AND PACED. PT REMOVED CPAP MASK AT THIS TIME, DECLINES FURTHER USE FOR NOW. DENIES PAIN AND NAUSEA AND IS ORIENTED. CALL LIGHT IN REACH AND BED ALARM IS ON.
--- NOTE | 2019-11-17 05:48 | NUR ---
PATIENT GIVEN HIS 5MG DOSE OF IV REGLAN AND 5 MG OXYCODONE FOR BROOKE AND BACK PAIN.
--- NOTE | 2019-11-17 06:28 | NUR ---
VITALS AND I&OS DONE AND CHARTED. HELPED PT INTO THE BATHROOM WITH HIS FWW. WEIGHT DONE AND CHARTED. HELPED HIM GET TO THE CHAIR PER HIS REQUEST. BEDSIDE TABLE AND CALL LIGHT IN REACH.
--- NOTE | 2019-11-17 06:42 | NUR ---
THIS RN NOTED SMALL HEALING SORE APPROX THE SIZE OF A RASHMI TO NAEEM TO PT'S RIGHT SHOULDER BLADE. SORE DRY WITH SOME ERYTHEMA AROUND SORE EDGE. SORE NOT YET NOTED IN PT'S CHART. PT A/O TO PERSON, PLACE, DATE, AND EVENTS AT THIS TIME. WHEN ASKED HOW LONG SORE HAS BEEN IN PLACE, PT STATES, "IT'S BEEN THERE QUITE A WHILE". HEART DOCTORYARA TOWNSEND ALSO IN ROOM TO VIEW SORE. PT DENIES ADDITIONAL NEEDS, CHAIR ALARM ON. CALL LIGHT IN REACH.
--- NOTE | 2019-11-17 07:15 | NUR ---
RECEIVED REPORT FROM MEL LIVINGSTON. PT SITTING UP CHAIR AT THIS TIME WITH NO COMPLAINTS.
--- NOTE | 2019-11-17 08:25 | NUR ---
IN PTS ROOM GIVING PT MORNING MEDS. PT DOING WELL A&OX3. PTS ON THE PHONE WITH PT AT THIS TIME. PTS ASKING TO SPEAK TO THIS RN, DISCUSSED WITH PTS THE GENERAL PLAN FOR THE DAY
--- NOTE | 2019-11-17 10:35 | NUR ---
PT SITTING UP IN CHAIR, PT APPEARS TO BE NAPPING, RESPIRATIONS NOTED. PT HAS NO CONCERNS AT THIS TIME
--- NOTE | 2019-11-17 10:45 | NUR ---
IN PTS ROOM GIVING MEDS. PT STATES THAT HE "FEELS PUFFY" DISCUSSED WITH PT THAT THIS RN WAS GIVING HIM LASIX THAT WILL HELP PULL THE FLUID OFF OF HIS BODY
--- NOTE | 2019-11-17 12:00 | NUR ---
DR PHILLIPS HAS HAD CONVERSATIONS WITH PATIENTS /FAMILY TODAY. THEY ARE REQUESTING HOSPICE CONSULT THROUGH [facility] IN [place]. CONSULT/CLINICALS SCANNED TO BRENDA MERCHANT AFTER SPEAKING WITH HER BY PHONE. [email or web address].
--- NOTE | 2019-11-17 13:02 | NUR ---
PTS CALLING THIS RN TO GET AN UPDATE AFTER BEING TOLD BY CHARGE NURSE ANTONIA 15MINS PRIOR THAT THIS RN WILL CALL HER BACK WHEN THIS RN GETS CAUGHT UP. \\ PTS ASKING HOW PT IS DOING STATING THAT PT "SOUNDED DEPRESSED" DISCUSSED WITH PTS THAT HE WAS JOKING WITH THIS RN EARLIER. PTS THEN BEGAN TO GET TEARFUL ON THE PHONE STATING THAT STATED THAT IF HIS BOWELS DON'T START WORKING SOON HE WILL AND THEN SHE STATED THAT "HE WILL GO [place] QUICK[place]" PTS REQUESTING THIS RN "TO DO EVERYTHING YOU CAN DO FOR HIM" DISUCSSED WITH PTS THAT THIS IS WHAT THIS RN IS TRYING TO DO FOR HIM. PTS , STILL TEARFUL, STATED THAT SHE WANTS TO BE WITH HIM WHEN HE PASSES, DISCUSSED WITH PTS THAT PER HOSPITAL POLICY DUE TO HIM NOT IN THE STATE OF PASSING THAT WE CAN'T AUTHORIZE A VISITOR AT THIS TIME. PTS , FELA, THEN STATED "WELL I WILL JUST HAVE TO TALK TO SOMEONE ELSE" DISCUSSED WITH PTS THAT THIS RN DOES NOT HAVE THE ABILITY TO AUTHORIZE A VISITOR AND THAT SHE SHOULD TALK TO SOMEONE ELSE.
--- NOTE | 2019-11-17 13:40 | NUR ---
RECEIVED TWO MESSAGES FROM FELA, PATIENTS AT 1222 AND 1301 TODAY ASKING FOR CALL BACK TO SEE IF WE HAD CALLED HOSPICE AND TO SEE IF SHE COULD SPEND THE NIGHT HERE WITH PATIENT. RETURNED CALL. DISCUSSED THAT I DID CALL [facility] SHE INDICATED TO DR PHILLIPS WAS THEIR CHOICE. DISCUSSED THAT CHART NOTES WERE SENT. EXPLAINED THE PROCESS THAT THEY WILL GIVE CHART TO PROVER AND WILL CONTACT US WHEN HE HAS A CHANCE TO REVIEW CHART. I EXPLAINED USUALLY THEY WILL CALL THE FAMILY DIRECTLY AFTER DIRECTOR GIVES HIS DECISION. FELA WAS TEARFUL ASKING WHY NO ONE FROM OUR OFFICE HAS CALLED HER BACK IN TWO DAYS. DISCUSSED THAT OUR PORTABLE ROUTER OPERATOR SPOKE WITH HER TWICE YESTERDAY, AND I RETURNED HER MESSAGES WITHIN 2 HOURS TODAY. DISCUSSED WITH HER THAT WE ARE SORRY IT IS SO STRESSFUL NOT TO BE ABLE TO BE HERE WITH THE PATIENTS DUE TO CDC AND STATE RULES REGARDING VISITORS DURING PANDEMIC. DISCUSSED THAT THE NURSES ARE ALWAYS GLAD TO UPDATE FAMILY WHEN THEY CALL ON HOW PATIENTS ARE DOING. DISCUSSED THAT PATIENT HAS BEEN UP IN A CHAIR, WALKED IN HALLS AND STAFF ARE TAKING CLOSE CARE OF HIM. DISCUSSED THAT HE COULD POSSIBLY BE DISCHARGED HOME TOMORROW AND IF HE IS, WE WILL CALL HER AND SHE CAN GO THROUGH SCREENING PROCESS AND BE WITH HIM FOR DISCHARGE INSTRUCTIONS HE IS SLIGHTLY CONFUSED AT TIMES AND IT WOULD BE BENEFICIAL FOR HER TO BE PRESENT FOR DISCHARGE PAPERS IF SHE WOULD AGREE TO THAT. FELA IS UPSET THAT HOSPICE HASN'T CALLED. DISCUSSED AGAIN THAT THEY GOT THE CHART AROUND NOON AND THAT I USUALLY GIVE THEM TWO HOURS TO CALL AND SEE IF [facility] HAS SEEN THE CHART. I TOLD HER I WILL CALL AFTER TWO AND I WILL LET HER KNOW WHERE THEY ARE ON THE PAPERWORK. I STARTED TO DISCUSS MORE WITH HER BUT SHE STATED "OK CALL ME BACK" AND HUNG UP.
--- NOTE | 2019-11-17 14:31 | NUR ---
CALLED [facility] AND SPOKE WITH ABDULLAHI AT 1410. SHE STATES NIGHT COORDINATOR HAS THE CHART, HE SHOULD BE BACK IN SHORTLY AND THERE IS ONE CHART IN FRONT OF THIS ONE. DISCUSSED WITH HER THAT PATIENTS IS ANXIOUS, AND ASKED THAT THEY CONTACT HER DIRECTLY. ABDULLAHI IS FAMILIAR WITH THIS FAMILY. SHE STATES FELA IS SECOND IN LINE TO CALL AND THAT THEY WOULD MAKE SURE SHE IS NOTIFIED. I CALLED FELA BACK AND EXPLAINED THIS. SHE STATES SHE WILL WAIT TO HEAR FROM THEM SOON.
--- NOTE | 2019-11-17 14:34 | NUR ---
RECEIVED PHONE CALL FROM PATIENTS STATING SHE WAS GOING TO [facility] TO IN-HOME MEDICAL TO PURCHASE NEEDED EQUIPMENT. DISCUSSED WITH HER TO WAIT TO TALK WITH HOSPICE. EXPLAINED THAT IF HE GOES ON HOSPICE, THEY WILL PAY FOR ANY EQUIPMENT NEEDED AND DELIVER IT. ENCOURAGED HER TO RELAX, PATIENT IS SAFE HERE AT THIS TIME. HOSPICE WILL CALL HER THIS AFTERNOON AND THEY WILL GO OVER WHAT EQUIPMENT SHE HAS ALREADY AND WHAT THEY MIGHT GET FOR THEM IT IS NEEDED. DISCUSSED WITH HER THAT PATIENT IS DOING OK. ACCORDING TO NURSE WAS DRINKING A PROTEIN SHAKE. DISCUSSED THAT SHE WILL BE UPDATED IF ANY CHANGES OCCUR. SHE STATES SHE IS GOING TO CALL HER SON AND UPDATE HIM.
--- NOTE | 2019-11-17 15:04 | NUR ---
RECEIVED A MESSAGE FROM ABDULLAHI AT [facility]. DR BARBOUR HAS AGREED TO TERMINAL DIAGNOSIS. THEY ARE HOPING TO ADMIT HIM AT HOME TOMORROW. CALLED DR PHILLIPS. SHE STATES SHE WILL DISCHARGE HIM IN THE AM SO HE CAN BE HOME FOR HOSPICE. CALLED HOSPICE BACK, SPOKE WITH INEG. DISCUSSED WILL WILL HAVE HIM DISCHARGED TO BE HOME BY NOON. IF THEY NEED HIM HOME SOONER, TO LET US KNOW AND WE WILL MAKE PLANS ACCORDININGLY.
--- NOTE | 2019-11-17 15:13 | NUR ---
LEFT MESSAGE ON FELA'S CELL REGARDING ACCEPTANCE TO HOSPICE AND THAT SHE WILL BE HEARING DIRECTLY FROM THEM THIS AFTERNOON. ALSO THAT WE ARE LOOKING AT A POSSIBLE DISCHARGE TOMORROW SO HOSPICE CAN MEET WITH THEM AT THEIR HOME IN THE AFTERNOON. ALSO THAT A STAFF MEMBER WILL CALL HER LATER TODAY TO LET HER KNOW WHAT TIME TO COME IN TOMORROW.
--- NOTE | 2019-11-17 16:00 | NUR ---
I WAS JUST GETTING TO GO IN AND GIVE HIM A SHOWER. THAN THEY TOLD ME HE WAS GOING HOME SO I TOOK OUT HIS IV AND HIS TELE OFF. THAN I GOT HIM DRESSED AND PACKED UP ALL HIS STUFF. GOT HIS VITALS.
== END 2019-11-17 16:30 | disposition hospice, home (50) | DRG 393 ==
LOC: ED 16:39 → MS 16:41
PROVIDERS: Surgery; ADMIT Student in an Organized Health Care Education/Training Program
PROC: 0DBE8ZX Excision of Large Intestine, Via Natural or Artificial Opening Endoscopic, Diagnostic (ICD-10-PCS; 2019-11-15)
PROC: 0DBP8ZX Excision of Rectum, Via Natural or Artificial Opening Endoscopic, Diagnostic (ICD-10-PCS; principal; 2019-11-15 10:00)
DX: K63.89 Other specified diseases of intestine (principal); G92 Toxic encephalopathy; E43 Unspecified severe protein-calorie malnutrition; E87.1 Hypo-osmolality and hyponatremia; F11.20 Opioid dependence, uncomplicated; E87.5 Hyperkalemia; K59.09 Other constipation; I10 Essential (primary) hypertension; G47.33 Obstructive sleep apnea (adult) (pediatric); E11.649 Type 2 diabetes mellitus with hypoglycemia without coma; D64.9 Anemia, unspecified; M54.9 Dorsalgia, unspecified; G89.4 Chronic pain syndrome; K62.1 Rectal polyp; E83.42 Hypomagnesemia; R13.10 Dysphagia, unspecified; R62.7 Adult failure to thrive; Z51.5 Encounter for palliative care; Z79.899 Other long term (current) drug therapy; Z66 Do not resuscitate; Z85.89 Personal history of malignant neoplasm of other organs and systems; Z79.4 Long term (current) use of insulin; Z68.23 Body mass index [BMI] 23.0-23.9, adult; Z20.828 Contact with and (suspected) exposure to other viral communicable diseases
CPT/HCPCS: 36415; 51798; 70450; 70496; 70498; 74018; 74177; 80048; 80053; 81001; 82247; 82465; 83615; 83690; 83735; 83880; 84100; 84478; 84484; 84550; 85025; 93005; 93010; 94760; 97116; 97162; 99285-25; J1650; J1815; J1940; J2001; J2060; J2212; J2270; J2405; J2550; J2704; J2765; J7030; J7121; Q9967; U0002